=== PATIENT | male | born 1945 | race Caucasian/White ===

== ENCOUNTER 2020-05-14 13:18 | Observation (INO) ==
[2020-05-14] MEDS ORDERED: SODIUM CHLORIDE 0.9% 1000ML 1,000 ML IV ONE (13:33)
--- NOTE | 2020-05-14 13:37 | Emergency Department Note ---
Impression & Plan Syncope, HTN (hypertension), Blood glucose elevated ED Provider Note NAME: INLAY BLACK AGE: 74 SEX: M : 1945 ARRIVES VIA: Walk-In INFORMANT: Patient ED PROVIDER(S): Ilan Meyers DO CHIEF COMPLAINT: Recurrent syncope HPI: Patient is a 74-year-old male who presents to the ER for syncope and near syncope. Symptoms started about a week ago. Over this past weekend he had nearly 5 episodes on Thursday and several episodes on Thursday and again today. He passed out once on Thursday and once on Thursday. He notes he becomes very warm, flushed, lightheaded and his legs become very weak. Twice he was woken up on the floor. He denies any headache or change in vision. No chest pain or shortness of breath. No belly pain, nausea, vomiting or diarrhea. No new swelling of legs. He was Covid positive over a month ago but notes those symptoms have now abated. Seen by his PCP and sent in for further evaluation. This generally occurs when he is up moving around. Does not occur with changing positions. Can also occur though while he sitting. ROS: See above HPI for pertinent positives & negatives. A total of 10 systems reviewed and were otherwise negative. PAST MEDICAL HISTORY:See Below PAST SURGICAL HISTORY:See Below FAMILY HISTORY:See Below SOCIAL HISTORY:See Below HOME MEDICATIONS:See Below ALLERGIES:See Below VITALS:See Below PHYSICAL EXAMINATION: GENERAL: Sitting up in bed, alert, well appearing, well nourished, no distress, non-toxic EYE EXAM: normal conjunctiva. PERRL and EOM's intact. OROPHARYNX: no exudate, no erythema, lips, buccal mucosa, and tongue normal and mucous membranes are moist NECK: supple, no nuchal rigidity, no adenopathy, non-tender LUNGS: Clear to auscultation. Normal chest wall mechanics HEART: no murmurs, S1 normal and S2 normal ABDOMEN: abdomen soft, non-tender, normo-active bowel sounds, no masses, no rebound or guarding. UPPER EXTREMITIES: upper extremities are grossly normal. LOWER EXTREMITIES: No pitting edema. NEURO EXAM: Normal sensorium, cranial nerves II-XII intact, normal speech, no weakness of arms, no weakness of legs. No drift. Finger to nose intact. Gross sensation intact. Rapid alternating movements of upper extremities intact. MEDICAL DECISION MAKING: Patient is a 74-year-old male who presents the ER for multiple syncopal and near syncopal episodes over the past week. Sent in by PCP. IV was established blood work was obtained. Labs show no significant anemia or leukocytosis. INR unremarkable. D-dimer was negative at 350. BMP along with LFTs bilirubin troponin lipase was unremarkable. Covid was negative. CT head as well as chest x-ray and venous Dopplers were negative. Patient was updated bedside. EKG was nondiagnostic. Patient was leonidas with hospitalist for further evaluation of the recurrent syncope/near syncope. Triage Nursing notes reviewed. Limited review of prior medical records performed Vital Signs: reviewed and remarkable for [no significant abnormalities] Differential diagnosis: Differential diagnosis includes etiologies such as vasovagal event, infection, hypoglycemia, electrolyte abnormalities, cardiac sources, intracerebral event, toxicologic, neurologic, as well as others were entertained. ER treatment provided: See below Diagnostics interpreted by me: ECG: Sinus rhythm rate of 75 Normal axis Prolonged QTC at [address] wave changes in the septal leads Cardiac Monitoring: An order was placed for continuous cardiac monitoring. The monitor shows a rate of 71 with sinus rhythm. Laboratory studies: As stated above and show below. Imaging studies: CT head as well as Doppler bilateral lower extremities and chest x-ray were unremarkable Consultation(s): Discuss[place] with [facility] [place] as stated above for further evaluation. Procedures: none Critical Care: None Past Med/Surg History Medical History (Updated 05/14/20 @ 17:05 by Ilan Meyers DO) Ascending aorta dilatation Diabetes mellitus, type II GERD (gastroesophageal reflux disease) HLD (hyperlipidemia) Hypertension Nonobstructive atherosclerosis of coronary artery REANNA on CPAP Surgical History H/O cardiac catheterization History of partial colectomy History of tonsillectomy S/p nephrectomy Family History Other Colorectal cancer Lung cancer Social History Smoking Status: Former smoker Years Smoked: 30; Smoking End Date: 2009; Hx Alcohol Use: Yes Alcohol Intake Frequency: 2-4 x/Month Hx Substance Use: No Feels Safe at Home: Yes Allergies Allergies Allergy/AdvReac Type Severity Reaction Status Date / Time iodine Allergy Unknown Verified 05/14/20 15:54 shellfish derived Allergy FULL BODY Unverified 05/14/20 15:54 ITCHING IODINE BETADINE Allergy Unknown FULL BODY Uncoded 05/14/20 15:54 ITCHING Home Meds Home Medications Medication Instructions Recorded Confirmed aspirin 81 mg PO DAILY 08/13/19 05/14/20 atorvastatin 40 mg PO DAILY 08/13/19 05/14/20 fluticasone propionate 2 spray INTRANASAL QAM 08/13/19 05/14/20 glipizide 10 mg PO AMPM 08/13/19 05/14/20 hydralazine 75 mg PO TID 08/13/19 05/14/20 hydrochlorothiazide 25 mg PO DAILY 08/13/19 05/14/20 losartan 100 mg PO DAILY 08/13/19 05/14/20 metformin 1,000 mg PO BID 08/13/19 05/14/20 omega 9-wkk-wtm-fish oil [Fish Oil] 1 cap PO DAILY 08/13/19 05/14/20 omeprazole 20 mg PO HS 08/13/19 05/14/20 semaglutide [Ozempic] 1 mg SUBCUT WK 08/13/19 05/14/20 diclofenac sodium [Voltaren] 2 g TOPICAL TID PRN 05/14/20 05/14/20 loratadine 10 mg PO DAILY 05/14/20 05/14/20 metoprolol tartrate 50 mg PO BID 05/14/20 05/14/20 tamsulosin 0.4 mg PO DAILY 05/14/20 05/14/20 valacyclovir 500 mg PO DAILY 05/14/20 05/14/20 Results & Data (ED) Vital Signs Vital Signs - 24 hr 05/14/20 13:20 05/14/20 13:37 05/14/20 13:58 Temperature 36.0 C L Temperature Source Temporal Artery Scan Oral Pulse Rate 78 76 Pulse Rate [Right Finger] Respiratory Rate 18 19 Respiratory Effort / Characteristics Non-Labored Respiratory Depth Normal Blood Pressure 176/91 H Blood Pressure [Left Arm] Blood Pressure Mean 119 Blood Pressure Mean [Left Arm] Blood Pressure Position [Left Arm] Pulse Oximetry 98 Oxygen Delivery Method Room Air Sepsis Recent Fever Within 48 Hours No Sepsis New/Unexplained Change in Mental Status No Sepsis Action Taken by Nursing No Action Required 05/14/20 14:00 05/14/20 14:58 05/14/20 14:59 Temperature Temperature Source Pulse Rate 72 73 71 Pulse Rate [Right Finger] Respiratory Rate 14 14 18 Respiratory Effort / Characteristics Respiratory Depth Blood Pressure 178/92 H Blood Pressure [Left Arm] Blood Pressure Mean 123 Blood Pressure Mean [Left Arm] Blood Pressure Position [Left Arm] Pulse Oximetry Oxygen Delivery Method Sepsis Recent Fever Within 48 Hours Sepsis New/Unexplained Change in Mental Status Sepsis Action Taken by Nursing 05/14/20 15:00 05/14/20 15:01 05/14/20 15:32 Temperature Temperature Source Pulse Rate 76 73 Pulse Rate [Right Finger] 70 Respiratory Rate 18 19 18 Respiratory Effort / Characteristics Respiratory Depth Blood Pressure 192/111 H Blood Pressure [Left Arm] 170/100 H Blood Pressure Mean 128 Blood Pressure Mean [Left Arm] 123 Blood Pressure Position [Left Arm] Sitting Pulse Oximetry 97 Oxygen Delivery Method Room Air Sepsis Recent Fever Within 48 Hours Sepsis New/Unexplained Change in Mental Status Sepsis Action Taken by Nursing 05/14/20 16:37 Temperature Temperature Source Pulse Rate Pulse Rate [Right Finger] Respiratory Rate Respiratory Effort / Characteristics Respiratory Depth Blood Pressure Blood Pressure [Left Arm] Blood Pressure Mean Blood Pressure Mean [Left Arm] Blood Pressure Position [Left Arm] Pulse Oximetry Oxygen Delivery Method Room Air Sepsis Recent Fever Within 48 Hours Sepsis New/Unexplained Change in Mental Status Sepsis Action Taken by Nursing Laboratory Data Result diagrams: 05/14/20 13:55 05/14/20 13:55 Lab Results 05/14/20 05/14/20 05/14/20 Range/Units 13:55 13:55 13:55 WBC 8.31 (4.8-10.8) K/uL RBC 4.79 (4.7-6.1) M/uL Hgb 13.5 L (14.0-18.0) g/dL Hct 40.5 L (42-52) % MCV 84.6 (80-100) fL MCH 28.2 (25-34) pg MCHC 33.3 (32-36) g/dL RDW Std Deviation 45.6 (36.4-46.3) fL RDW Coeff of [place] 14.7 H (11.5-14.5) % Plt Count 248 (130-400) K/uL MPV 10.0 (7.4-10.4) fL Immature Gran % (Auto) 0.2 % Neut % (Auto) 59.9 % Lymph % (Auto) 26.2 % [place] % (Auto) 11.3 % Eos % (Auto) 1.9 % Baso % (Auto) 0.5 % Neut # (Auto) 4.97 (1.4-6.5) K/uL Lymph # (Auto) 2.18 (1.2-3.4) K/uL [place] # (Auto) 0.94 H (0.11-0.59) K/uL Eos # (Auto) 0.16 (0-0.5) K/uL Baso # (Auto) 0.04 (0-0.2) K/uL Immature Gran # (Auto) 0.02 (0.00-0.02) K/uL PT 11.6 (9.0-12.0) Seconds INR 1.1 (0.9-1.1) APTT 25.0 (21.0-31.0) Seconds PTT Ratio 0.9 D-Dimer 350 (0-500) ug/L FEU Sodium 136 (136-145) mmol/L Potassium 3.6 (3.5-5.1) mmol/L Chloride 101 (98-107) mmol/L Carbon Dioxide 27 (21-32) mmol/L Anion Gap 8.0 (3-11) BUN 12 (7-18) mg/dl Creatinine 0.75 (0.6-1.4) mg/dl Est Cr Clr Drug Dosing 110.0 ml/min Est GFR ( Amer) 105.5 Est GFR (Non-Af Amer) 91.0 BUN/Creatinine Ratio 16.1 (10-20) Glucose 156 H (70-99) mg/dl Calcium 9.5 (8.5-10.1) mg/dl Magnesium (1.8-2.4) mg/dl Total Bilirubin 0.7 (0.2-1) mg/dl AST 21 (15-37) U/L ALT 37 (12-78) U/L Alkaline Phosphatase 70 (45-117) U/L Troponin I < 0.015 (0-0.045) ng/ml Total Protein 7.1 (6.4-8.2) gm/dl Albumin 3.6 (3.4-5.0) gm/dl Globulin 3.5 (2.5-4.0) gm/dl Albumin/Globulin Ratio 1.0 (0.9-2) Lipase 117 (73-393) U/L COVID-19 Eval Order SARS-CoV-2, RNA, NAAT (NEGATIVE) 05/14/20 05/14/20 05/14/20 Range/Units 13:55 14:38 14:38 WBC (4.8-10.8) K/uL RBC (4.7-6.1) M/uL Hgb (14.0-18.0) g/dL Hct (42-52) % MCV (80-100) fL MCH (25-34) pg MCHC (32-36) g/dL RDW Std Deviation (36.4-46.3) fL RDW Coeff of [place] (11.5-14.5) % Plt Count (130-400) K/uL MPV (7.4-10.4) fL Immature Gran % (Auto) % Neut % (Auto) % Lymph % (Auto) % [place] % (Auto) % Eos % (Auto) % Baso % (Auto) % Neut # (Auto) (1.4-6.5) K/uL Lymph # (Auto) (1.2-3.4) K/uL [place] # (Auto) (0.11-0.59) K/uL Eos # (Auto) (0-0.5) K/uL Baso # (Auto) (0-0.2) K/uL Immature Gran # (Auto) (0.00-0.02) K/uL PT (9.0-12.0) Seconds INR (0.9-1.1) APTT (21.0-31.0) Seconds PTT Ratio D-Dimer (0-500) ug/L FEU Sodium (136-145) mmol/L Potassium (3.5-5.1) mmol/L Chloride (98-107) mmol/L Carbon Dioxide (21-32) mmol/L Anion Gap (3-11) BUN (7-18) mg/dl Creatinine (0.6-1.4) mg/dl Est Cr Clr Drug Dosing ml/min Est GFR ( Amer) Est GFR (Non-Af Amer) BUN/Creatinine Ratio (10-20) Glucose (70-99) mg/dl Calcium (8.5-10.1) mg/dl Magnesium 2.3 (1.8-2.4) mg/dl Total Bilirubin (0.2-1) mg/dl AST (15-37) U/L ALT (12-78) U/L Alkaline Phosphatase (45-117) U/L Troponin I (0-0.045) ng/ml Total Protein (6.4-8.2) gm/dl Albumin (3.4-5.0) gm/dl Globulin (2.5-4.0) gm/dl Albumin/Globulin Ratio (0.9-2) Lipase (73-393) U/L COVID[facility]19 [facility], RNA, NAAT NEGATIVE (NEGATIVE) Administered Medications Discontinued Medications Hydralazine HCl (Hydralazine Hcl 25 Mg Tab) 75 mg PO NOW STA Stop: 05/14/20 15:35 Last Admin: 05/14/20 16:36 Dose: 75 mg Documented by: [id number] Sodium Chloride (Nss 1000ml) 1,000 mls @ 999 mls/hr IV .Q1H1M ONE Stop: 05/14/20 14:33 Last Infusion: 05/14/20 15:08 Dose: 0 mls/hr Documented by: [id number] Admin: 05/14/20 13:59 Dose: 999 mls/hr Documented by: [id number] Discharge Plan Visit Data Chief Complaint: Cardiac Assessment Stated Complaint: Heart rate irregular ED Provider: Ilan Meyers Discharge Problem: Syncope, HTN (hypertension), Blood glucose elevated Patient Disposition: Admitted As Inpatient Discharge Instructions Interventions: ED Discharge Assessment Last Done: 05/14/20 16:37 Forms Stand Alone Forms: [facility] Prescriptions Prescriptions: No Action diclofenac sodium [Voltaren] 1 % Gel 2 g TOPICAL TID PRN (Reason: Pain) RF: 0 metoprolol tartrate 50 mg tablet 50 mg PO BID RF: 0 loratadine 10 mg Tablet 10 mg PO DAILY RF: 0 tamsulosin 0.4 mg capsule 0.4 mg PO DAILY RF: 0 valacyclovir 500 mg tablet 500 mg PO DAILY RF: 0 hydralazine 100 mg tablet 75 mg PO TID RF: 0 glipizide 5 mg tablet 10 mg PO AMPM RF: 0 atorvastatin 40 mg tablet 40 mg PO DAILY RF: 0 hydrochlorothiazide 25 mg tablet 25 mg PO DAILY RF: 0 metformin 1,000 mg tablet 1,000 mg PO BID RF: 0 losartan 100 mg tablet 100 mg PO DAILY RF: 0 aspirin 81 mg Tablet,Delayed Release (Dr/Ec) 81 mg PO DAILY RF: 0 omeprazole 20 mg capsule,delayed release(DR/EC) 20 mg PO HS RF: 0 omega 5-vyk-lwa-fish oil [Fish Oil] 360-1,200 mg Capsule,Delayed Release(Dr/Ec) 1 cap PO DAILY RF: 0 fluticasone propionate 50 mcg/actuation spray,suspension 2 spray INTRANASAL QAM RF: 0 Ozempic 1 mg/dose (2 mg/1.5 mL) pen injector 1 mg SUBCUT WK RF: 0 Referrals Referrals: Humberto Reyes MD [Primary Care Provider] - Discharge Problem: Syncope Qualifiers: Syncope type: unspecified Qualified Code(s): R55 - Syncope and collapse HTN (hypertension) Qualifiers: Hypertension type: unspecified Qualified Code(s): I10 - Essential (primary) hypertension
[2020-05-14 14:04] LABS: Basophils # (auto) 0.04 K/uL (0-0.2); Basophils % (auto) 0.5 %; Eosinophils # (auto) 0.16 K/uL (0-0.5); Eosinophils % (auto) 1.9 %; Hematocrit (blood only) 40.5 % (42-52); Hemoglobin 13.5 g/dL (14.0-18.0); Immature Granulocytes # (auto) 0.02 K/uL (0.00-0.02); Immature Granulocytes % (auto) 0.2 %; Lymphocytes # (auto) 2.18 K/uL (1.2-3.4); Lymphocytes % (auto) 26.2 %; Mean Corpuscular Hemoglobin 28.2 pg (25-34); Mean Corpuscular Hgb Conc 33.3 g/dL (32-36); Mean Corpuscular Volume 84.6 fL (80-100); Monocytes # (auto) 0.94 K/uL (0.11-0.59); Monocytes % (auto) 11.3 %; Neutrophils # (auto) 4.97 K/uL (1.4-6.5); Neutrophils % (auto) 59.9 %; Platelet Count 248 K/uL (130-400); RDW Coefficient of Variation 14.7 % (11.5-14.5); RDW Standard Deviation 45.6 fL (36.4-46.3); Red Blood Count 4.79 M/uL (4.7-6.1); White Blood Count 8.31 K/uL (4.8-10.8)
--- NOTE | 2020-05-14 14:05 | XRay Report ---
XR chest 1V portable CLINICAL HISTORY: Atypical chest pain COMPARISON STUDY: 08/13/2019 FINDINGS: The heart is mildly enlarged. There is no failure. There is no focal pulmonary consolidatio n. There are no pleural effusions. A subcentimeter opacity in the axillary portion of the right chest is felt to represent a summation or postinflammatory nodule.[ IMPRESSION: Mild cardiomegaly. No acute findings. ACT 112: Negative or not required by law. Electronically signed by: Tamir Hatfield M.D. 05/14/2020 2:03 PM
[2020-05-14 14:16] LABS: D Dimer 350 ug/L FEU (0-500); INR 1.1 (0.9-1.1); Partial Thromboplastin Ratio 0.9; Prothrombin Time 11.6 Seconds (9.0-12.0)
[2020-05-14 14:23] LABS: Albumin Level 3.6 gm/dl (3.4-5.0); Aspartate Aminotransferase 21 U/L (15-37); BUN Creatinine Ratio 16.1 (10-20); Blood Urea Nitrogen 12 mg/dl (7-18); Calcium 9.5 mg/dl (8.5-10.1); Carbon Dioxide 27 mmol/L (21-32); Chloride 101 mmol/L (98-107); Est GFR (African American) 105.5; Glucose 156 mg/dl (70-99); Lipase 117 U/L (73-393); Potassium 3.6 mmol/L (3.5-5.1); Sodium 136 mmol/L (136-145)
[2020-05-14 14:27] LABS: Alanine Aminotransferase 37 U/L (12-78); Alkaline Phosphatase 70 U/L (45-117); Bilirubin,Total 0.7 mg/dl (0.2-1); Globulin 3.5 gm/dl (2.5-4.0); Total Protein 7.1 gm/dl (6.4-8.2); Troponin I < 0.015 ng/ml (0-0.045)
--- NOTE | 2020-05-14 14:52 | Ultrasound Report ---
BILATERAL LOWER EXTREMITY VENOUS DOPPLER HISTORY: Assess for DVT. recurrent syncope COMPARISON STUDY: None. FINDINGS: There is normal compressibility, flow, and augmentation within the bilateral lower extremit y deep venous systems. IMPRESSION: No DVT within the right or left lower extremity. ACT 112: Negative or not required by law. Electronically signed by: Tvaon Kelly M.D. 05/14/2020 2:51 PM
--- NOTE | 2020-05-14 15:10 | History & Physical Report ---
Date of Service May 14, 2020 Assessment & Plan (1) Syncope: (2) Hypertension: (3) Nonobstructive atherosclerosis of coronary artery: (4) Diabetes mellitus, type II: (5) Ascending aorta dilatation: (6) HLD (hyperlipidemia): (7) GERD (gastroesophageal reflux disease): (8) REANNA on CPAP: This is a 74yo M with a PMH of DM II, nonobstructive CAD, HTN, ascending aorta dilatation, history of bifascicular block, HLD, REANNA on CPAP and other medical problems listed below who presents with syncopal and near syncopal episodes x 1 week. Syncope Frequent episodes of near syncope and syncopal episode in the last week. Occurs when standing. No preceding CP or palpitations CXR without acute cardiopulmonary abnormalities. Venous Doppler study without evidence of DVT Orthostatic vitals, CT head, carotid duplex and 2D echo pending along with routine cardiology consult Most recent TTE from 12/21/19 with preserved EF, grade 1 diastolic dysfunction, mild MR, mildly enlarged aortic root and ascending aorta is borderline enlarged - no significant change since Dec 2018 echo No chest pain, abdominal, back pain or SOB that would increase concern for aortic dissection/aneurysm - will need pretreated with Benadryl due to contrast allergy (rash) if CTA chest is later indicated Known bifascicular block. EKG with no acute change Monitor on telemetry Hypertension Known to have labile HTN BP elevated at 175/91 in ED but is due for home dose Hydralazine, which was given Continue home hydralazine, HCTZ, losartan, lopressor CAD Non-obstructive CAD per 2011 cardiac catheterization No chest pain. Continue aspirin, statin, lopressor DM II A1c 7.3 in Nov 2019. Repeat a1c ordered Hold home agents SSI while in-patient BSG AC HS REANNA CPAP HS DVT Ppx: SQ heparin Code status: FULL PCP: Amy Dispo: Admitted to PCU. Plan to return home once medically stable. Patient seen in collaboration with Dr. Figueroa. Please see addendum. History of Present Illness Chief Complaint: syncope Primary Care Provider: Humberto Reyes MD This is a 74yo M with a PMH of DM II, nonobstructive CAD, HTN, ascending aorta dilatation, history of bifascicular block, HLD, REANNA on CPAP and other medical problems listed below who presents with syncopal and near syncopal episodes x 1 week. Had full syncopal episode on Thursday when he was standing by bedroom when digesting mind. Denies any sudden positional change prior to developing lightheadedness and flushing followed by visual changes. Fell backwards onto the bed and does not think he hit his head. Endorses 5-6 other near syncopal episodes over the past week mostly occurring when patient is standing. Has occasionally occurred when he is sitting still but not as severe. He denies any associated chest pain or shortness of breath. No heart palpitations over the past few weeks. Does check blood pressure with cuff at home and noticed pressure was elevated on Thursday (150/101) but back to 130s/80s on Thursday. He is taking all medications as scheduled. Was sent in by PCP today for further syncopal evaluation. Had COVID last month, but had a fairly mild course with cough that resolved without requiring oxygen or steroids. No other recent illnesses, fevers, chills. No nausea, vomiting, or abdominal pain. No dysuria. Had a few episodes of diarrhea 2 weeks ago that have since resolved. Most recent TTE from 12/21/19 with preserved EF, grade 1 diastolic dysfunction, mild MR, mildly enlarged aortic root and ascending aorta is borderline enlarged - no significant change since Dec 2018 echo. Also with history of MRI brain from Dec 2018 with mild generalized volume loss with evidence of mild chronic microvascular ischemic change. Allergies Allergy/AdvReac Type Severity Reaction Status Date / Time iodine Allergy Unknown Verified 05/14/20 15:54 shellfish derived Allergy FULL BODY Unverified 05/14/20 15:54 ITCHING IODINE BETADINE Allergy Unknown FULL BODY Uncoded 05/14/20 15:54 ITCHING Home Medications Medication Instructions Recorded Confirmed Type aspirin 81 mg PO DAILY 08/13/19 05/14/20 History atorvastatin 40 mg PO DAILY 08/13/19 05/14/20 History fluticasone propionate 2 spray INTRANASAL QAM 08/13/19 05/14/20 History glipizide 10 mg PO AMPM 08/13/19 05/14/20 History hydralazine 75 mg PO TID 08/13/19 05/14/20 History hydrochlorothiazide 25 mg PO DAILY 08/13/19 05/14/20 History losartan 100 mg PO DAILY 08/13/19 05/14/20 History metformin 1,000 mg PO BID 08/13/19 05/14/20 History omega 4-oqo-fdn-fish oil [Fish Oil] 1 cap PO DAILY 08/13/19 05/14/20 History omeprazole 20 mg PO HS 08/13/19 05/14/20 History semaglutide [Ozempic] 1 mg SUBCUT WK 08/13/19 05/14/20 History diclofenac sodium [Voltaren] 2 g TOPICAL TID PRN 05/14/20 05/14/20 History loratadine 10 mg PO DAILY 05/14/20 05/14/20 History metoprolol tartrate 50 mg PO BID 05/14/20 05/14/20 History tamsulosin 0.4 mg PO DAILY 05/14/20 05/14/20 History valacyclovir 500 mg PO DAILY 05/14/20 05/14/20 History Past Med/Surg History Medical History (Updated 05/14/20 @ 17:05 by Ilan Meyers DO) Ascending aorta dilatation Diabetes mellitus, type II GERD (gastroesophageal reflux disease) HLD (hyperlipidemia) Hypertension Nonobstructive atherosclerosis of coronary artery REANNA on CPAP Surgical History H/O cardiac catheterization History of partial colectomy History of tonsillectomy S/p nephrectomy Family History Other Colorectal cancer Lung cancer Social History Smoking Status: Former smoker Years Smoked: 30; Smoking End Date: 2009; Second Hand Exposure: No; Do You Dip or Chew Tobacco: No; Tobacco Cessation Education Requested by Patient: No Hx Alcohol Use: Yes Alcohol Intake Frequency: 2-4 x/Month Hx Substance Use: No Communication Ability: Effective Associate Editor Required: Yes Beliefs That Will Affect Care: None Current Living Situation: Significant Other Other Information That Helps Us Care for You: No Feels Safe at Home: Yes Safety Concerns: Feels Safe At This Time Assistive Devices: Hearing Aid - Bilateral Review of Systems Review of Systems: At least ten systems reviewed and negative except as noted in the HPI. Physical Exam Physical Exam: General Appearance: WD/WN, vitals as above, NAD, sitting up in bed, pleasant, conversing easily Head: normocephalic, atraumatic Eyes: normal inspection, PERRL, conjunctivae normal, anicteric sclerae ENT: external ear and nose normal, oropharynx normal Neck: normal visual inspection, trachea midline, no thyromegaly Respiratory: normal respiratory effort, lungs clear to auscultation, no wheeze, rales, rhonchi. No accessory muscle use Cardiovascular: regular rate, rhythm, no murmur appreciated, normal peripheral pulses, no BLE edema. Vessels: no JVD Chest: normal inspection of chest Abdomen/GI: normal bowel sounds, soft, nontender, no hepatosplenomegaly Extremities/Musculoskeletal: no cyanosis or clubbing, extremities motor strength 5/5 Neurologic: PERRL, EOMI, accommodation nl, no face palsy, no dysarthria, CN's II-XI intact bilaterally and moves all extremities Psychiatric: A+Ox3, euthymic affect Skin: no rashes, normal color, warm/dry Results & Data Results & Data ([facility]) Vital Signs (Past 12 Hours) Vital Signs Temp Pulse Resp BP Pulse Ox 05/14/20 13:20 36.0 C L 78 18 176/91 H 98 Laboratory Results Short CBC 05/14/20 Range/Units 13:55 WBC 8.31 (4.8-10.8) K/uL Hgb 13.5 L (14.0-18.0) g/dL Hct 40.5 L (42-52) % Plt Count 248 (130-400) K/uL BMP 05/14/20 13:55 Sodium 136 Potassium 3.6 Chloride 101 Carbon Dioxide 27 BUN 12 Creatinine 0.75 Glucose 156 H Calcium 9.5 Cardiac Enzymes 05/14/20 Range/Units 13:55 Troponin I < 0.015 (0-0.045) ng/ml Liver Function 05/14/20 Range/Units 13:55 Total Bilirubin 0.7 (0.2-1) mg/dl AST 21 (15-37) U/L ALT 37 (12-78) U/L Alkaline Phosphatase 70 (45-117) U/L Albumin 3.6 (3.4-5.0) gm/dl Diagnostic Findings CXR: IMPRESSION: Mild cardiomegaly. No acute findings. Venous doppler: IMPRESSION: No DVT within the right or left lower extremity. ECG Rhythm: sinus rhythm Additional Comments: h/o bifascicular block Supervising Physician Co-Signing Physician Notes Patient is a 74-year-old male with history of diabetes, coronary disease, ascending aortic dilation, bifascicular heart block and other medical problems presents with history of recurrent syncopal episodes for the past 1 week. He denies any head trauma, headache, change in vision currently. Please review HPI for complete details of presentation. He was found to be in hypertensive urgency while in ED. CT head showed no acute intracranial abnormality. He was recently diagnosed to have Covid but did not receive any treatment as symptoms were mild requiring no treatment. On exam patient is well-built and nourished, no apparent distress, normocephalic atraumatic, lungs are clear to auscultation, normal breath sounds, S1-S2, ABDOMEN: Soft, non-tender, no organs or masses felt. Bowel sounds normo-active. No bruits. Abdomen soft, nontender, normal bowel sounds, alert, awake, oriented, grossly no focal neurological deficits, no pedal edema. Patient is admitted for management of recurrent syncopal episodes. CT head showed no acute intracranial abnormality. Carotid ultrasound is within normal limits. Agree with obtaining echo, EKG in the morning, trend troponins, obtain orthostatics and consult cardiology for further input. Will monitor and telemetry unit. Will resume his home antihypertensives and adjust medications as needed. I personally reviewed the record. Patient is interviewed and examined at bedside. Patient's care is coordinated with Katrina Silva PA-C. Please refer to the documentation above for details of patient's presentation and for discussion of other issues.
[2020-05-14] MEDS ORDERED: hydrALAZINE HCL 25 MG TAB PO STA (15:34)
[2020-05-14] MEDS ORDERED: POTASSIUM CHLORIDE CRTAB 20 MEQ TABCR PO STA (16:09)
--- NOTE | 2020-05-14 16:48 | CT Scan Report ---
CT SCAN OF THE BRAIN WITHOUT IV CONTRAST CLINICAL HISTORY: Fall. Syncope. COMPARISON STUDY: No priors. TECHNIQUE: Unenhanced axial CT scan of the brain is performed from the vertex to the skull base. A do se lowering technique was utilized adhering to the principles of ALARA. CT DOSE: 994.86 mGycm FINDINGS: Brain parenchyma: There are age-related involutional changes noting mild subcortical and periventric ular microangiopathic change. There is no hemorrhage, mass effect, or evidence of acute territorial i schemia by CT criteria. Villagomez-white matter differentiation is preserved. No extra-axial fluid collecti on is seen. Ventricles, sulci, cisterns: Prominent secondary to involutional change. Intracranial vasculature: There is atherosclerotic calcification of the cavernous carotid and vertebr al arteries. Calvarium: The skeletal structures are osteopenic. No depressed calvarial fracture is identified. Sinuses and mastoids: There is mild mucosal thickening within the maxillary antra. The remaining para nasal sinuses are clear. There is trace left mastoid effusion. The right mastoid air cells are well p neumatized. Orbits: The bony orbits are grossly intact. IMPRESSION: There is no hemorrhage, mass effect, or evidence of acute territorial ischemia by CT crit shauna. ACT 112: Negative or not required by law. Electronically signed by: Christopher Miguel M.D. 05/14/2020 4:47 PM
--- NOTE | 2020-05-14 17:33 | Ultrasound Report ---
ULTRASOUND OF THE CAROTID ARTERIES CLINICAL HISTORY: Syncope. COMPARISON STUDY: No priors. TECHNIQUE: Real-time, grayscale, and color Doppler sonography of the carotid arteries is performed. I mages are reviewed in the transverse and longitudinal planes. FINDINGS: Blood pressure in the right arm measures 206/95 and blood pressure in the left arm measures 196/95. The carotid arteries are patent bilaterally and demonstrate antegrade flow. There is no significant a therosclerotic plaque identified. Normal doppler arterial waveforms are seen throughout. Velocity jun surements are listed below. Common carotid peak systolic velocity (cm/sec): RIGHT: 80 LEFT: 110 ICA proximal peak systolic velocity (cm/sec): RIGHT: 49 LEFT: 37 ICA mid peak systolic velocity (cm/sec): RIGHT: 53 LEFT: 45 ICA distal peak systolic velocity (cm/sec): RIGHT: 83 LEFT: 62 ICA/CC peak systolic ratio: RIGHT: 1.0 LEFT: 0.6 Antegrade flow was shown in the vertebral arteries. The external carotid arteries are patent. IMPRESSION: 1. There is no sonographic evidence of hemodynamically significant stenosis in the right or left miller tid arterial system. 2. Antegrade flow is shown in the vertebral arteries. 3. Hypertension as above. ACT 112: Negative or not required by law. Electronically signed by: Christopher Miguel M.D. 05/14/2020 5:32 PM
[2020-05-14] MEDS ORDERED: POLYETHYLENE (MIRALAX) 17 GM PACK PO PRN (18:03)
[2020-05-14] MEDS ORDERED: CARBOHYDRATES FOR HYPOGLYCEMIA PO PRN (18:03)
[2020-05-14] MEDS ORDERED: DICLOFENAC SOD 1% GEL 100 GM TUBE EXT PRN (18:03)
[2020-05-14] MEDS ORDERED: GLUCOSE 10 TABS/TUBE PO PRN (18:03)
[2020-05-14] MEDS ORDERED: GLUCOSE 40% GEL 15 GM TUBE PO PRN (18:03)
[2020-05-14] MEDS ORDERED: ACETAMINOPHEN 325 MG TAB PO PRN (18:03)
[2020-05-14] MEDS ORDERED: ONDANSETRON INJ 2 MG/ML 2 ML VIAL IV PRN (18:03)
[2020-05-14] MEDS ORDERED: GLUCAGON FOR INJ 1 MG VIAL SQ PRN (18:03)
[2020-05-14] MEDS ORDERED: DEXTROSE 50% 50 ML SYRINGE IV PRN (18:03)
--- NOTE | 2020-05-14 18:41 | Electrocardiogram Report ---
Test Reason : Blood Pressure : / mmHG Vent. Rate : 075 BPM Atrial Rate : 075 BPM P-R Int : 218 ms QRS Dur : 160 ms QT Int : 454 ms P-R-T Axes : 032 027 040 degrees QTc Int : 506 ms Sinus rhythm with 1st degree A-V block with Premature atrial complexes in a pattern of bigeminy Right bundle branch block Abnormal ECG When compared with ECG of 13-AUG-2019 20:33, Premature atrial complexes are now Present WA interval has increased Confirmed by Sixto Thomason ([id number]) on 05/14/2020 6:40:43 PM Referred By: Emilie Jeffrey Confirmed By:Sixto Thomason
[2020-05-14] MEDS: hydrALAZINE HCL 25 MG TAB PO SCH (20:30)
[2020-05-14] MEDS: HEPARIN SOD 5,000 UNIT/0.5 ML VIAL SQ SCH (20:31)
[2020-05-14] MEDS: METOPROLOL TARTRATE 50 MG TAB PO SCH (20:31)
[2020-05-14] MEDS: INSULIN ASPART 100 UNITS/ML 3 ML PEN SC SCH ×2 (20:31→20:51)
[2020-05-14] MEDS ORDERED: PANTOprazole 40 MG TAB PO SCH (21:00)
[2020-05-15 07:15] LABS: Hematocrit (blood only) 38.2 % (42-52); Hemoglobin 12.6 g/dL (14.0-18.0); Mean Corpuscular Hemoglobin 27.9 pg (25-34); Mean Corpuscular Volume 84.7 fL (80-100); Mean Platelet Volume 9.7 fL (7.4-10.4); Platelet Count 210 K/uL (130-400); RDW Coefficient of Variation 14.6 % (11.5-14.5); RDW Standard Deviation 45.1 fL (36.4-46.3); Red Blood Count 4.51 M/uL (4.7-6.1); White Blood Count 7.56 K/uL (4.8-10.8)
[2020-05-15 07:38] LABS: BUN Creatinine Ratio 16.1 (10-20); Blood Urea Nitrogen 11 mg/dl (7-18); Calcium 9.1 mg/dl (8.5-10.1); Carbon Dioxide 26 mmol/L (21-32); Chloride 103 mmol/L (98-107); Est GFR (African American) 107.9; Est GFR (Non-African American) 93.1; Glucose 124 mg/dl (70-99); Magnesium 2.1 mg/dl (1.8-2.4); Potassium 3.7 mmol/L (3.5-5.1); Sodium 137 mmol/L (136-145)
[2020-05-15 07:43] LABS: Troponin I < 0.015 ng/ml (0-0.045)
[2020-05-15 08:24] LABS: Estimated Average Glucose 160 mg/dl; Hemoglobin A1C 7.2 % (4.5-5.6)
[2020-05-15] MEDS: INSULIN ASPART 100 UNITS/ML 3 ML PEN SC SCH ×2 (08:56→11:58)
[2020-05-15] MEDS ORDERED: FLUTICASONE PROPIONATE NA SPR 16 GM BTL NAE SCH (09:00)
[2020-05-15] MEDS ORDERED: OMEGA-3 (PURIFIED FISH OIL) 1 GM CAP PO SCH (09:00)
[2020-05-15] MEDS ORDERED: ATORVASTATIN 40 MG TAB PO SCH (09:00)
[2020-05-15] MEDS ORDERED: ASPIRIN 81 MG ECTAB PO SCH (09:00)
[2020-05-15] MEDS ORDERED: TAMSULOSIN HCL 0.4 MG CAP PO SCH (09:00)
[2020-05-15] MEDS ORDERED: hydroCHLOROthiazide 25 MG TAB PO SCH (09:00)
[2020-05-15] MEDS ORDERED: LORATADINE 10 MG TAB PO SCH (09:00)
[2020-05-15] MEDS ORDERED: valACYclovir HCL 500 MG TABLET PO SCH (09:00)
[2020-05-15] MEDS ORDERED: LOSARTAN POTASSIUM 50 MG TAB PO SCH (09:00)
[2020-05-15] MEDS: HEPARIN SOD 5,000 UNIT/0.5 ML VIAL SQ SCH (09:00)
[2020-05-15] MEDS: METOPROLOL TARTRATE 50 MG TAB PO SCH (09:01)
[2020-05-15] MEDS: hydrALAZINE HCL 25 MG TAB PO SCH (09:03)
--- NOTE | 2020-05-15 10:27 | Cardiology Consultation ---
Date of Consultation May 15, 2020 Assessment & Plan (1) Syncope: (2) HTN (hypertension): EKG performed this morning 05/15/2020 revealed sinus rhythm at 73 bpm with first- degree AV block, bifascicular block pattern, relatively unchanged compared to his previous baseline. Telemetry since admission has revealed sinus rhythm with PACs, and no arrhythmia that would correlate with syncope. The patient noted lightheadedness when changing from a supine to a seated position at the time of my exam. Orthostatic vital signs have been somewhat equivocal. And for the most part, ongoing hypertension has been noted both during his hospital stay, as well as during recent office visits. He notes his palpitations are well controlled on his current dose of metoprolol. Echocardiogram performed this morning revealed moderate concentric left ventricular hypertrophy, normal LVEF, no regional wall motion abnormalities, mild mitral regurgitation. At present, I recommend that we reduce his hydralazine to 50 mg 3 times daily. Orthostatic vital signs are going to be taken again. Future considerations include adding spironolactone to his HCTZ. His potassium historically has been on the lower side, and perhaps this would be a good addition for him, unwell for us to lower the dose of the patent vasodilator hydralazine. Recommend he remains in hospital for observation pending clinical improvement. History of Present Illness Attending Physician: Manjeet Figueroa MD History of Present Illness Sameer Joseph is a 74 year old male seen in cardiology consultation of syncope. The patient is well known to the undersigned as I follow him as an outpatient. He has a longstanding history of difficulty control hypertension prompting him to be on multiple medications. He recently has had increasing episodes of dizziness, syncope and near syncope. He was seen by primary care about a week ago for worsening episodes, in the meantime, 3 days ago on Thursday, first thing in the morning prior to taking his medications he woke up, opened his curtains, and had a maria loss of postural tone collapsing onto his bed. After resting a bit he felt better, and got up, and had to brace himself at the bathroom sink to keep himself from collapsing again. On Thursday he had a similar however less pronounced episode. He has a remote history of an abnormal nuclear stress test in 2011 for which he underwent follow-up cardiac catheterization at [facility] on 12/31/2011 revealing no significant obstructive coronary heart disease. 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 This prompted transition from carvedilol to his current treatment with metoprolol. He has been on hydralazine for years, with titration from 50 mg 3 times daily to 75 mg 3 times daily in December,. He has been on his current dose of losartan for quite some time having previously been on lisinopril. Amlodipine was discontinued in the remote past due to symptomatic lower extremity edema. Allergies Allergy/AdvReac Type Severity Reaction Status Date / Time iodine Allergy Unknown Verified 05/14/20 15:54 shellfish derived Allergy FULL BODY Unverified 05/14/20 15:54 ITCHING IODINE BETADINE Allergy Unknown FULL BODY Uncoded 05/14/20 15:54 ITCHING Home Medications Medication Instructions Recorded Confirmed Type aspirin 81 mg PO DAILY 08/13/19 05/14/20 History atorvastatin 40 mg PO DAILY 08/13/19 05/14/20 History fluticasone propionate 2 spray INTRANASAL QAM 08/13/19 05/14/20 History glipizide 10 mg PO AMPM 08/13/19 05/14/20 History hydralazine 75 mg PO TID 08/13/19 05/14/20 History hydrochlorothiazide 25 mg PO DAILY 08/13/19 05/14/20 History losartan 100 mg PO DAILY 08/13/19 05/14/20 History metformin 1,000 mg PO BID 08/13/19 05/14/20 History omega 0-ius-rcn-fish oil [Fish Oil] 1 cap PO DAILY 08/13/19 05/14/20 History omeprazole 20 mg PO HS 08/13/19 05/14/20 History semaglutide [Ozempic] 1 mg SUBCUT WK 08/13/19 05/14/20 History diclofenac sodium [Voltaren] 2 g TOPICAL TID PRN 05/14/20 05/14/20 History loratadine 10 mg PO DAILY 05/14/20 05/14/20 History metoprolol tartrate 50 mg PO BID 05/14/20 05/14/20 History tamsulosin 0.4 mg PO DAILY 05/14/20 05/14/20 History valacyclovir 500 mg PO DAILY 05/14/20 05/14/20 History Patient History Medical History Ascending aorta dilatation Diabetes mellitus, type II GERD (gastroesophageal reflux disease) HLD (hyperlipidemia) Hypertension Nonobstructive atherosclerosis of coronary artery REANNA on CPAP Surgical History H/O cardiac catheterization History of partial colectomy History of tonsillectomy S/p nephrectomy Family History Other Colorectal cancer Lung cancer Social History Smoking Status: Former smoker Years Smoked: 30; Smoking End Date: 2009; Second Hand Exposure: No; Do You Dip or Chew Tobacco: No; Tobacco Cessation Education Requested by Patient: No Hx Alcohol Use: Yes Alcohol Intake Frequency: 2-4 x/Month Hx Substance Use: No Communication Ability: Effective 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 Beliefs That Will Affect Care: None Current Living Situation: Significant Other Other Information That Helps Us Care for You: No Feels Safe at Home: Yes Safety Concerns: Feels Safe At This Time Review of Systems Review of Systems: All systems reviewed & are unremarkable except as noted in HPI & below Physical Exam Physical Exam: Temp Pulse Resp BP Pulse Ox 37 C 73 18 165/85 H 94 05/15/20 07:29 05/15/20 07:29 05/15/20 07:29 05/15/20 07:29 05/15/20 07:29 Respiratory: normal respiratory effort, lungs clear to auscultation Cardiovascular: RRR, no murmur, no edema Gastrointestinal (Abdomen): normal bowel sounds, soft, nontender, no hepatosplenomegaly Neurologic: PERRL, EOMI, accommodation nl, no face palsy, no dysarthria Results & Data ([facility]) Vital Signs (Past 12 Hours) Vital Signs Temp Pulse Pulse Pulse Resp BP BP 05/15/20 07:29 37 C 73 18 165/85 H 05/15/20 07:00 72 05/15/20 04:00 36.7 C 74 20 158/89 H 05/15/20 02:13 70 20 05/14/20 23:29 36.6 C 70 20 141/76 H 05/14/20 23:00 71 05/14/20 22:24 70 18 Pulse Ox 05/15/20 07:29 94 05/15/20 07:00 05/15/20 04:00 95 05/15/20 02:13 96 05/14/20 23:29 96 05/14/20 23:00 05/14/20 22:24 95 Laboratory Results Cardiac Enzymes 05/14/20 05/15/20 Range/Units 13:55 06:57 AST 21 (15-37) U/L Troponin I < 0.015 < 0.015 (0-0.045) ng/ml Coagulation 05/14/20 Range/Units 13:55 PT 11.6 (9.0-12.0) Seconds APTT 25.0 (21.0-31.0) Seconds CBC 05/14/20 05/15/20 Range/Units 13:55 06:57 WBC 8.31 7.56 (4.8-10.8) K/uL RBC 4.79 4.51 L (4.7-6.1) M/uL Hgb 13.5 L 12.6 L (14.0-18.0) g/dL Hct 40.5 L 38.2 L (42-52) % Plt Count 248 210 (130-400) K/uL Neut # (Auto) 4.97 (1.4-6.5) K/uL Lymph # (Auto) 2.18 (1.2-3.4) K/uL [place] # (Auto) 0.94 H (0.11-0.59) K/uL Eos # (Auto) 0.16 (0-0.5) K/uL Baso # (Auto) 0.04 (0-0.2) K/uL Comprehensive Metabolic Panel 05/14/20 05/15/20 Range/Units 13:55 06:57 Sodium 136 137 (136-145) mmol/L Potassium 3.6 3.7 (3.5-5.1) mmol/L Chloride 101 103 (98-107) mmol/L Carbon Dioxide 27 26 (21-32) mmol/L BUN 12 11 (7-18) mg/dl Creatinine 0.75 0.71 (0.6-1.4) mg/dl Glucose 156 H 124 H (70-99) mg/dl Calcium 9.5 9.1 (8.5-10.1) mg/dl AST 21 (15-37) U/L ALT 37 (12-78) U/L Alkaline Phosphatase 70 (45-117) U/L Total Protein 7.1 (6.4-8.2) gm/dl Albumin 3.6 (3.4-5.0) gm/dl Intake and Output 05/14/20 05/15/20 05/15/20 22:59 06:59 14:59 Intake Total 1300 / 1300 Output Total 500 / 1560 1060 / 1560 Balance 800 / -260 -1060 / -260 Intake: IV 1000 / 1000 Nss 1000ML 1,000 ml @ 999 mls/ 1000 / 1000 hr IV .Q1H1M ONE Rx#:[id number] Oral 300 / 300 Output: Urine 500 / 1560 1060 / 1560 Other: Weight 108.6 kg 106.5 kg Weight Measurement Method Chair Scale (1) Syncope Syncope type: unspecified Qualified Code(s): R55 - Syncope and collapse (2) HTN (hypertension) Hypertension type: unspecified Qualified Code(s): I10 - Essential (primary) hypertension
--- NOTE | 2020-05-15 12:01 | Communication Note ---
Date of Service: May 15, 2020 Patient reassessed, orthostatic vital signs reviewed. 1038, 10:39 AM, with static vital signs included supine blood pressure of 168/85, heart rate 74 Sitting up 160/88 Standing 150/85 mmHg -Patient is ambulated to the bathroom, no recurrent lightheadedness symptoms. Telemetry reveals stable findings. Plan: Reduce hydralazine from 75 mg 3 times daily to 50 mg 3 times daily. Add spironolactone 25 mg daily to his previous outpatient regimen. Continue remaining medications. Patient already has follow-up with me scheduled for next month. Stable for discharge from a cardiac perspective.
--- NOTE | 2020-05-15 12:11 | Hospitalist Progress Note ---
Date of Service May 15, 2020 Assessment & Plan (1) Syncope: (2) Hypertension: (3) Nonobstructive atherosclerosis of coronary artery: (4) Diabetes mellitus, type II: (5) Ascending aorta dilatation: (6) HLD (hyperlipidemia): (7) GERD (gastroesophageal reflux disease): (8) REANNA on CPAP: Patient is a 74 yr male with H/O DM II, nonobstructive CAD, HTN, ascending aorta dilatation, history of bifascicular block, HLD, REANNA on CPAP and other medical problems listed below who presents with syncopal and near syncopal episodes x 1 week. Syncope Presented with frequent episodes of near syncope and syncopal episode in the last week CXR without acute cardiopulmonary abnormalities. Venous Doppler study without evidence of DVT -CT Head: There is no hemorrhage, mass effect, or evidence of acute territorial ischemia by CT criteria. -Carotid Doppler: There is no sonographic evidence of hemodynamically significant stenosis in the right or left carotid arterial system. Antegrade flow is shown in the vertebral arteries. Hypertension as above. -ECHO: Mild concentric LVH. EF 55 to 60%. Grade 1 diastolic dysfunction. Mild mitral regurgitation. Proximal ascending aorta is mildly dilated with diameter of 3.9 cm -EKG: First-degree AV block, bifascicular block present, unchanged from prior -Negative Orthostatics -No arrhythmias on telemetry -Appreciate cardiology input -Hydralazine adjusted to 50 mg 3 times daily, started on spironolactone. 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 Insulin therapy while in-patient BSG AC HS REANNA CPAP HS DVT Px: SQ heparin Code status: FULL Disposition Plan to discharge home today Admission and Anticipated Discharge Date Admission Date: May 14, 2020 Subjective Patient is seen and examined at present States feeling much better today Denies chest pain, dyspnea, dizziness, nausea, abdominal pain Offers no other complaints No arrhythmias on monitor Discussed with cardiology today Plan to be discharged home today Orthostatics negative Review of Systems Review of Systems: All systems reviewed & are unremarkable except as noted in HPI & below Physical Exam Physical Exam: Physical Exam: Vitals signs as noted above General Appearance:Moderately built and nourished, no apparent distress Head: normocephalic, Atraumatic Eyes: normal inspection, EOMI Neck: supple, Trachea midline Respiratory/Chest: Normal breath sounds, CTA Cardiovascular: S1, S2, No murmur Abdomen/GI:Soft, Non tender, Bowel sounds present Extremities/Musculoskelatal:normal inspection, no edema Neurologic/Psych:AAOX3, grossly no focal neurological deficits Skin: normal color, warm Results & Data Results & Data ([facility]) Vital Signs (Past 12 Hours) Vital Signs Temp Pulse Pulse Pulse Resp BP BP 05/15/20 07:29 37 C 73 18 165/85 H 05/15/20 07:00 72 05/15/20 04:00 36.7 C 74 20 158/89 H 05/15/20 02:13 70 20 Pulse Ox 05/15/20 07:29 94 05/15/20 07:00 05/15/20 04:00 95 05/15/20 02:13 96
--- NOTE | 2020-05-15 12:45 | Communication Note ---
Date of Service: May 15, 2020 Code 44 attestation: He is a 74-year-old male with significant past medical history of type 2 diabetes, nonobstructive CAD, hypertension, ascending aortic dilatation, and history of bifascicular block, hyperlipidemia, REANNA on CPAP was admitted with syncopal episode especially when ambulating and upright. 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 His chart and imaging studies reviewed. He has been feeling a lot better since admission without any recurrence of syncope. He is medically stable to be discharged ,he will be discharged home this afternoon. By CMS guidelines, a determination that the admission or continued stay is not medically necessary has been made by a member of the UR committee and a physician for this hospital stay, therefore a Code 44 will be completed and the Inpatient admission will be changed to outpatient. Dr Chantale Muñoz Member UR Committee.
[2020-05-15] MEDS ORDERED: hydrALAZINE TAB 50 MG TAB PO SCH (14:00)
--- NOTE | 2020-05-15 15:00 | Discharge Summary ---
Date of Service May 15, 2020 Admission HPI Per Admitting Provider This is a 74yo M with a PMH of DM II, nonobstructive CAD, HTN, ascending aorta dilatation, history of bifascicular block, HLD, REANNA on CPAP and other medical problems listed below who presents with syncopal and near syncopal episodes x 1 week. Had full syncopal episode on Thursday when he was standing by bedroom when digesting mind. Denies any sudden positional change prior to developing lightheadedness and flushing followed by visual changes. Fell backwards onto the bed and does not think he hit his head. Endorses 5-6 other near syncopal episodes over the past week mostly occurring when patient is standing. Has occasionally occurred when he is sitting still but not as severe. He denies any associated chest pain or shortness of breath. No heart palpitations over the past few weeks. Does check blood pressure with cuff at home and noticed pressure was elevated on Thursday (150/101) but back to 130s/80s on Thursday. He is taking all medications as scheduled. Was sent in by PCP today for further syncopal evaluation. Had COVID last month, but had a fairly mild course with cough that resolved without requiring oxygen or steroids. No other recent illnesses, fevers, chills. No nausea, vomiting, or abdominal pain. No dysuria. Had a few episodes of diarrhea 2 weeks ago that have since resolved. Most recent TTE from 12/21/19 with preserved EF, grade 1 diastolic dysfunction, mild MR, mildly enlarged aortic root and ascending aorta is borderline enlarged - no significant change since Dec 2018 echo. Also with history of MRI brain from Dec 2018 with mild generalized volume loss with evidence of mild chronic microvascular ischemic change. Admission Exam Per Admitting Provider Physical Exam Physical Exam: General Appearance: WD/WN, vitals as above, NAD, sitting up in bed, pleasant, conversing easily Head: normocephalic, atraumatic Eyes: normal inspection, PERRL, conjunctivae normal, anicteric sclerae ENT: external ear and nose normal, oropharynx normal Neck: normal visual inspection, trachea midline, no thyromegaly Respiratory: normal respiratory effort, lungs clear to auscultation, no wheeze, rales, rhonchi. No accessory muscle use Cardiovascular: regular rate, rhythm, no murmur appreciated, normal peripheral pulses, no BLE edema. Vessels: no JVD Chest: normal inspection of chest Abdomen/GI: normal bowel sounds, soft, nontender, no hepatosplenomegaly Extremities/Musculoskeletal: no cyanosis or clubbing, extremities motor strength 5/5 Neurologic: PERRL, EOMI, accommodation nl, no face palsy, no dysarthria, CN's II-XI intact bilaterally and moves all extremities Psychiatric: A+Ox3, euthymic affect Skin: no rashes, normal color, warm/dry Principal Diagnosis Syncope Hypertensive urgency Discharge Data Allergies Allergy/AdvReac Type Severity Reaction Status Date / Time iodine Allergy Unknown Verified 05/14/20 15:54 shellfish derived Allergy FULL BODY Unverified 05/14/20 15:54 ITCHING IODINE BETADINE Allergy Unknown FULL BODY Uncoded 05/14/20 15:54 ITCHING Consultations 05/14/20 14:45 ED Decision to Admit Stat 05/14/20 18:03 Consult Cardiology Routine Procedures Performed CT Head: There is no hemorrhage, mass effect, or evidence of acute territorial ischemia by CT criteria. Carotid Doppler: There is no sonographic evidence of hemodynamically significant stenosis in the right or left carotid arterial system. Antegrade flow is shown in the vertebral arteries. Hypertension as above. ECHO: Mild concentric LVH. EF 55 to 60%. Grade 1 diastolic dysfunction. Mild mitral regurgitation. Proximal ascending aorta is mildly dilated with diameter of 3.9 cm Venous Doppler No DVT within the right or left lower extremity. CXR: Mild cardiomegaly. No acute findings. Ordered Studies 05/14/20 13:34 US venous doppler LE BI Stat 05/14/20 16:06 CT head/brain wo con Routine US carotid doppler BI Routine Hospital Course (1) Syncope: (2) Hypertension: (3) Nonobstructive atherosclerosis of coronary artery: (4) Diabetes mellitus, type II: (5) Ascending aorta dilatation: (6) HLD (hyperlipidemia): (7) GERD (gastroesophageal reflux disease): (8) REANNA on CPAP: Patient is a 74 yr male with H/O DM II, nonobstructive CAD, HTN, ascending aorta dilatation, history of bifascicular block, HLD, REANNA on CPAP and other medical problems listed below who presents with syncopal and near syncopal episodes x 1 week. Syncope Presented with frequent episodes of near syncope and syncopal episode in the last week CXR without acute cardiopulmonary abnormalities. Venous Doppler study without evidence of DVT -CT Head: There is no hemorrhage, mass effect, or evidence of acute territorial ischemia by CT criteria. -Carotid Doppler: There is no sonographic evidence of hemodynamically significant stenosis in the right or left carotid arterial system. Antegrade flow is shown in the vertebral arteries. Hypertension as above. -ECHO: Mild concentric LVH. EF 55 to 60%. Grade 1 diastolic dysfunction. Mild mitral regurgitation. Proximal ascending aorta is mildly dilated with diameter of 3.9 cm -EKG: First-degree AV block, bifascicular block present, unchanged from prior -Negative Orthostatics -No arrhythmias on telemetry -Appreciate cardiology input -Hydralazine adjusted to 50 mg 3 times daily, started on spironolactone. 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 Insulin therapy while in-patient BSG AC HS REANNA CPAP HS DVT Px: SQ heparin Code status: FULL Disposition Plan to discharge home today Total Time Total Time Spent Total Time Spent (In Minutes): 28 minutes Total Time Includes: Examination of the Patient, Discharge Planning, Medication Reconciliation, Communication With Other Providers and Other Discharge Plan Discharge Items Patient Disposition: Home - Self-Care Reason For Visit: SYNCOPE, HTN Discharge Diagnosis: Syncope Hypertensive urgency Activity: Per Instructions section Exercise/Sports: Gradually increase as tolerated Non-emergency contact: Primary Care Provider, Battery Container Tester and Neurologist Call non-emergency contact if: you have any medication questions, your symptoms worsen, your pain is concerning for you and you have a fever Follow-up/Referrals: Humberto Reyes MD [Primary Care Provider] - (Date & Time 05/18/2020 10:00 AM Provider Humberto Reyes MD Department Family Practice [facility] ) Diet: Carb Consistent or DM2 and Heart Healthy Addtl Attending Provider Instructions: Follow up with your PCP on 05/18/2020 10:00 AM as scheduled Follow up with your promotions executive producer Dr. Mcnair as advised Consider following with your neurologist as needed Seek immediate medical attention if your symptoms reoccur or worsen Pending Studies at Discharge: No Stand-Alone Forms: My [facility], Smoking Cessation Medications and DC Order Prescriptions: New spironolactone 25 mg Tablet 25 mg PO QAM Qty: 30 RF: 0 hydralazine 50 mg Tablet 50 mg PO TID Qty: 90 RF: 0 Continued diclofenac sodium [Voltaren] 1 % Gel 2 g TOPICAL TID PRN (Reason: Pain) RF: 0 metoprolol tartrate 50 mg tablet 50 mg PO BID RF: 0 loratadine 10 mg Tablet 10 mg PO DAILY RF: 0 tamsulosin 0.4 mg capsule 0.4 mg PO DAILY RF: 0 valacyclovir 500 mg tablet 500 mg PO DAILY RF: 0 glipizide 5 mg tablet 10 mg PO AMPM RF: 0 atorvastatin 40 mg tablet 40 mg PO DAILY RF: 0 hydrochlorothiazide 25 mg tablet 25 mg PO DAILY RF: 0 metformin 1,000 mg tablet 1,000 mg PO BID RF: 0 losartan 100 mg tablet 100 mg PO DAILY RF: 0 aspirin 81 mg Tablet,Delayed Release (Dr/Ec) 81 mg PO DAILY RF: 0 omeprazole 20 mg capsule,delayed release(DR/EC) 20 mg PO HS RF: 0 omega 8-bsi-sqo-fish oil [Fish Oil] 360-1,200 mg Capsule,Delayed Release(Dr/Ec) 1 cap PO DAILY RF: 0 fluticasone propionate 50 mcg/actuation spray,suspension 2 spray INTRANASAL QAM RF: 0 Ozempic 1 mg/dose (2 mg/1.5 mL) pen injector 1 mg SUBCUT WK RF: 0 Discontinued hydralazine 100 mg tablet 75 mg PO TID RF: 0 Discharge Orders: Discharge Order (Routine); Ordered 05/15/20 Ordered By: Manjeet Moralez/Other Patient Handouts: Managing Type 2 Diabetes, What Is Syncope?, Causes of Syncope, Spironolactone tablets Admission Data Admit Date/Time: 05/14/20 15:17 Attending Provider: Manjeet Figueroa Admit Provider: Manjeet Figueroa Primary Care Provider: Humberto Reyes Other Providers: Manjeet Figueroa ; Bennie Salamanca Other Interventions: Discharge Summary Assessment (RN) Last Done: 05/15/20 13:40
--- NOTE | 2020-05-16 06:32 | Electrocardiogram Report ---
Test Reason : Blood Pressure : / mmHG Vent. Rate : 073 BPM Atrial Rate : 073 BPM P-R Int : 218 ms QRS Dur : 162 ms QT Int : 470 ms P-R-T Axes : 054 -62 013 degrees QTc Int : 517 ms Sinus rhythm with 1st degree A-V block Right bundle branch block Left anterior fascicular block Bifascicular block Minimal voltage criteria for LVH, may be normal variant Abnormal ECG When compared with ECG of 14-MAY-2020 13:34, Premature atrial complexes are no longer Present Confirmed by Sixto Thomason ([id number]) on 05/16/2020 6:32:29 AM Referred By: Emilie Jeffrey Confirmed By:Sixto Thomason
[2020-05-16] MEDS ORDERED: SPIRONOLACTONE 25 MG TAB PO SCH (09:00)
== END 2020-05-15 14:32 | disposition home or self-care (01) ==
LOC: ED 13:18 → INTOOBSV 15:17 → 2S 15:17

== ENCOUNTER 2020-06-09 03:32 | Observation (INO) ==
[2020-06-09 04:01] LABS: Basophils # (auto) 0.04 K/uL (0-0.2); Basophils % (auto) 0.5 %; Eosinophils # (auto) 0.21 K/uL (0-0.5); Eosinophils % (auto) 2.6 %; Hematocrit (blood only) 41.7 % (42-52); Hemoglobin 14.1 g/dL (14.0-18.0); Immature Granulocytes # (auto) 0.01 K/uL (0.00-0.02); Immature Granulocytes % (auto) 0.1 %; Lymphocytes # (auto) 1.66 K/uL (1.2-3.4); Lymphocytes % (auto) 20.4 %; Mean Corpuscular Hgb Conc 33.8 g/dL (32-36); Mean Corpuscular Volume 85.8 fL (80-100); Mean Platelet Volume 9.9 fL (7.4-10.4); Monocytes # (auto) 1.01 K/uL (0.11-0.59); Monocytes % (auto) 12.4 %; Neutrophils # (auto) 5.22 K/uL (1.4-6.5); Platelet Count 243 K/uL (130-400); RDW Coefficient of Variation 14.8 % (11.5-14.5); RDW Standard Deviation 46.2 fL (36.4-46.3); Red Blood Count 4.86 M/uL (4.7-6.1); White Blood Count 8.15 K/uL (4.8-10.8)
[2020-06-09] MEDS ORDERED: METOPROLOL TARTRATE 1 MG/ML VIAL IV STA ×3 (04:01→06:02)
[2020-06-09 04:17] LABS: Albumin Level 3.6 gm/dl (3.4-5.0); BUN Creatinine Ratio 12.6 (10-20); Calcium 9.1 mg/dl (8.5-10.1); Creatinine Clr Calc Pharmacy 72.8 ml/min; Est GFR (African American) 73.5; Est GFR (Non-African American) 63.4; Magnesium 1.9 mg/dl (1.8-2.4)
[2020-06-09 04:28] LABS: Albumin Globulin Ratio 1.1 (0.9-2); Bilirubin,Total 0.6 mg/dl (0.2-1); Globulin 3.3 gm/dl (2.5-4.0); Thyroid Stimulating Hormone 8.64 uIu/ml (0.300-4.500); Total Protein 6.9 gm/dl (6.4-8.2)
[2020-06-09 04:40] LABS: T4 Free Thyroxine 0.98 ng/dl (0.8-1.6)
--- NOTE | 2020-06-09 05:24 | Emergency Department Note ---
Impression & Plan SVT (supraventricular tachycardia) ED Provider Note NAME: NILAY BLACK AGE: 74 SEX: M ARRIVES VIA: Ambulance INFORMANT: Patient ED PROVIDER(S): Raegan Harper DO CHIEF COMPLAINT: Chest pain and tachycardia PLAN: Disposition: Admitted to the [facility] service. Condition: Good MEDICAL DECISION MAKING: this is a 74-year-old male patient who Woke from sleep with a chest burning sensation and noted that his heart rate was 191. The patient has a history of SVT. The patient thought that the symptoms would subside but he checked his blood pressure and found that it continued to go up and he called EMS. While here in the emergency department, the patient was having paroxysmal episodes of SVT. He received multiple doses of Lopressor which would briefly control his ta chycardia but then it would recur. The patient remained hemodynamically stable but he was having rates as high as the 180s-190s. I discussed the case with the [facility] and they will evaluate for further management. Triage Nursing notes reviewed and agree them. Additional history obtained from EMS Prior medical records reviewed Vital Signs: reviewed and unremarkable Differential diagnosis: Paroxysmal SVT, electrolyte abnormality, thyroid dysfunction, cardiac ischemia ER treatment provided: IV Lopressor x2 Diagnostics interpreted by me: ECG: Normal sinus rhythm with a first-degree AV block at a rate of 85. There is a right bundle branch block noted also. The first-degree A-V block and right bundle branch block are unchanged from an EKG that was done in April 2020. Cardiac Monitoring: Normal sinus rhythm at a rate of 86 The patient is having intermittent episodes of SVT with rates between 180 and 190 Laboratory studies: See below Imaging studies: Chest x-ray: No acute pulmonary infiltrates or cardiomegaly HPI: 74/M arrives for evaluation of chest burning and tachycardia. The patient awoke from sleep feeling as if his chest was on fire. He noted that his blood pressure was significantly elevated and his heart rate was at 191. The patient describes having history of SVT and thought that the heart rate would slow down but it did not. He rechecked his blood pressure and found that it was increasing and called 911. The patient thought that the chest burning may be coming from his esophagus. He denied any associated shortness of breath or any changes in his medications. ROS: See above HPI for pertinent positives & negatives. A total of 10 systems reviewed and were otherwise negative. PAST MEDICAL HISTORY:See Below PAST SURGICAL HISTORY:See Below FAMILY HISTORY:See Below SOCIAL HISTORY:See Below HOME MEDICATIONS:See list ALLERGIES:See list VITALS:See Below PHYSICAL EXAMINATION: HEENT: Head - normocephalic and atraumatic Pupils are equal, round, and reactive to light. Extraocular eye muscles are intact, and sclera are anicteric. Nose - moist nasal mucosa without discharge. Mouth - moist buccal mucosa. Oropharynx is nonerythematous and there is no tonsillar exudate or edema noted. Neck: Supple; no cervical lymphadenopathy. Heart: Regular rate and rhythm. There is a normal S1 and S2 with no murmurs, clicks, or gallops appreciated. Lungs: Clear to auscultation bilaterally with no wheezes, rales, or rhonchi. Abdomen: Soft, completely nontender, nondistended, with good bowel sounds. There are no palpable pulsatile masses or hepatosplenomegaly. There is no guarding, rigidity, or rebound noted. Extremities: No evidence of cyanosis, clubbing, or edema. There are easily palpable peripheral pulses. Skin: warm and dry with good turgor and no rashes. ED COURSE: Times/Reassessments: 0335: The patient was evaluated emergently in room A1 for SVT. An order was placed for continuous cardiac monitoring. The patient was in a normal sinus rhythm at a rate of 86. An IV lock was initiated and labs were drawn as above. The patient was given 5 mg of IV Lopressor. A twelve-lead EKG was obtained. Portable chest x-ray was performed. The patient was moved to C3 0430: I reevaluated the patient at this time and he continues to feel well although he has had a couple more intermittent episodes of SVT that were self- limited. 0505:I reviewed results of laboratory studies with the patient. 0520: Nursing staff alerted me that the patient was having increased frequent episodes of SVT and his blood pressure had gone up again. He received a second dose of IV Lopressor-5 mg. The patient tolerated this well in the tachycardic episode stopped. I discussed the case with Dr. Goodson and Covid testing was ordered for admission. I have personally spent greater than 50 minutes of critical care time in the direct management of this patient. This includes bedside care, interpretation of diagnostic studies, and testing, discussion with consultants, patient, and family members, and other required patient management activities. This 50 minutes is in excess of all separately billable procedures. Raegan Harper DO Past Med/Surg History Medical History Ascending aorta dilatation Diabetes mellitus, type II GERD (gastroesophageal reflux disease) HLD (hyperlipidemia) Hypertension Nonobstructive atherosclerosis of coronary artery REANNA on CPAP Surgical History H/O cardiac catheterization History of partial colectomy History of tonsillectomy S/p nephrectomy Family History Other Colorectal cancer Lung cancer Social History Smoking Status: Never smoker Years Smoked: 30; Second Hand Exposure: No; Hx Alcohol Use: No Hx Substance Use: No Preferred Language: Mongolian Communication Ability: Effective Pay Per Click Strategist Required: No Beliefs That Will Affect Care: None Current Living Situation: Family Feels Safe at Home: Yes Safety Concerns: Feels Safe At This Time Assistive Devices: Hearing Aid - Bilateral Allergies Allergies Allergy/AdvReac Type Severity Reaction Status Date / Time iodine Allergy Intermediate FULL BODY Verified 06/09/20 04:07 ITCHING shellfish derived Allergy Intermediate FULL BODY Verified 06/09/20 04:07 ITCHING IODINE BETADINE Allergy Intermediate FULL BODY Uncoded 06/09/20 04:07 ITCHING Home Meds Home Medications Medication Instructions Recorded Confirmed Ozempic 1 mg SUBCUT WK 08/13/19 06/09/20 aspirin 81 mg PO DAILY 08/13/19 06/09/20 atorvastatin 40 mg PO DAILY 08/13/19 06/09/20 fluticasone propionate 2 spray INTRANASAL QAM 08/13/19 06/09/20 glipizide 10 mg PO AMPM 08/13/19 06/09/20 hydrochlorothiazide 25 mg PO QDL 08/13/19 06/09/20 losartan 100 mg PO DAILY 08/13/19 06/09/20 metformin 1,000 mg PO BID 08/13/19 06/09/20 omega 3-apw-izx-fish oil [Fish Oil] 1 cap PO DAILY 08/13/19 06/09/20 omeprazole 20 mg PO HS 08/13/19 06/09/20 diclofenac sodium [Voltaren] 2 g TOPICAL TID PRN 05/14/20 06/09/20 loratadine 10 mg PO DAILY 05/14/20 06/09/20 metoprolol tartrate 50 mg PO BID 05/14/20 06/09/20 tamsulosin 0.4 mg PO DAILY 05/14/20 06/09/20 valacyclovir 500 mg PO DAILY 05/14/20 06/09/20 Previous Rx's Medication Instructions Recorded hydralazine 50 mg PO TID #90 tab 05/15/20 spironolactone 25 mg PO QAM #30 tab 05/15/20 Results & Data (ED) Vital Signs Vital Signs - 24 hr 06/09/20 03:38 06/09/20 03:40 06/09/20 04:00 Temperature 36.7 C Temperature Source Oral Pulse Rate 82 88 85 Pulse Rate from SpO2 Sensor 84 72 Respiratory Rate 20 Respiratory Depth Normal Blood Pressure 137/83 141/102 H Blood Pressure Mean 101 115 Pulse Oximetry 97 98 95 Oxygen Delivery Method Room Air Room Air Sepsis Recent Fever Within 48 Hours No Sepsis New/Unexplained Change in Mental Status N/A Sepsis Action Taken by Nursing No Action Required 06/09/20 04:07 06/09/20 04:15 06/09/20 04:30 Temperature Temperature Source Pulse Rate 85 79 81 Pulse Rate from SpO2 Sensor 70 Respiratory Rate 20 15 Respiratory Depth Blood Pressure 126/70 116/80 118/73 Blood Pressure Mean 92 88 Pulse Oximetry 95 Oxygen Delivery Method Sepsis Recent Fever Within 48 Hours Sepsis New/Unexplained Change in Mental Status Sepsis Action Taken by Nursing 06/09/20 04:36 06/09/20 04:37 06/09/20 05:00 Temperature Temperature Source Pulse Rate 82 81 80 Pulse Rate from SpO2 Sensor 83 80 76 Respiratory Rate 25 H 17 15 Respiratory Depth Blood Pressure 121/80 125/71 Blood Pressure Mean 93 89 Pulse Oximetry 97 98 96 Oxygen Delivery Method Sepsis Recent Fever Within 48 Hours Sepsis New/Unexplained Change in Mental Status Sepsis Action Taken by Nursing 06/09/20 05:17 06/09/20 05:22 06/09/20 05:28 Temperature Temperature Source Pulse Rate 77 141 H 151 H Pulse Rate from SpO2 Sensor 79 73 Respiratory Rate 13 19 Respiratory Depth Blood Pressure 153/90 H 128/96 128/96 Blood Pressure Mean 111 106 Pulse Oximetry 97 97 Oxygen Delivery Method Sepsis Recent Fever Within 48 Hours Sepsis New/Unexplained Change in Mental Status Sepsis Action Taken by Nursing 06/09/20 05:30 06/09/20 05:57 06/09/20 05:58 Temperature Temperature Source Pulse Rate 92 H 143 H 107 H Pulse Rate from SpO2 Sensor 69 76 Respiratory Rate 14 17 19 Respiratory Depth Blood Pressure 130/74 125/76 131/84 Blood Pressure Mean 92 92 99 Pulse Oximetry 96 96 96 Oxygen Delivery Method Room Air Sepsis Recent Fever Within 48 Hours Sepsis New/Unexplained Change in Mental Status Sepsis Action Taken by Nursing 06/09/20 06:00 Temperature Temperature Source Pulse Rate 121 H Pulse Rate from SpO2 Sensor 71 Respiratory Rate 16 Respiratory Depth Blood Pressure 152/80 H Blood Pressure Mean 104 Pulse Oximetry 97 Oxygen Delivery Method Sepsis Recent Fever Within 48 Hours Sepsis New/Unexplained Change in Mental Status Sepsis Action Taken by Nursing Laboratory Data Result diagrams: 06/09/20 03:52 06/09/20 03:52 Lab Results 06/09/20 06/09/20 06/09/20 Range/Units 03:52 03:52 03:52 WBC 8.15 (4.8-10.8) K/uL RBC 4.86 (4.7-6.1) M/uL Hgb 14.1 (14.0-18.0) g/dL Hct 41.7 L (42-52) % MCV 85.8 (80-100) fL MCH 29.0 (25-34) pg MCHC 33.8 (32-36) g/dL RDW Std Deviation 46.2 (36.4-46.3) fL RDW Coeff of Kyleigh 14.8 H (11.5-14.5) % Plt Count 243 (130-400) K/uL MPV 9.9 (7.4-10.4) fL Immature Gran % (Auto) 0.1 % Neut % (Auto) 64.0 % Lymph % (Auto) 20.4 % [place] % (Auto) 12.4 % Eos % (Auto) 2.6 % Baso % (Auto) 0.5 % Neut # (Auto) 5.22 (1.4-6.5) K/uL Lymph # (Auto) 1.66 (1.2-3.4) K/uL [place] # (Auto) 1.01 H (0.11-0.59) K/uL Eos # (Auto) 0.21 (0-0.5) K/uL Baso # (Auto) 0.04 (0-0.2) K/uL Immature Gran # (Auto) 0.01 (0.00-0.02) K/uL APTT 25.2 (21.0-31.0) Seconds PTT Ratio 1.0 D-Dimer 260 (0-500) ug/L FEU Sodium 136 (136-145) mmol/L Potassium 4.0 (3.5-5.1) mmol/L Chloride 101 (98-107) mmol/L Carbon Dioxide 28 (21-32) mmol/L Anion Gap 7.0 (3-11) BUN 14 (7-18) mg/dl Creatinine 1.14 (0.6-1.4) mg/dl Est Cr Clr Drug Dosing 72.8 ml/min Est GFR ( Amer) 73.5 Est GFR (Non-Af Amer) 63.4 BUN/Creatinine Ratio 12.6 (10-20) Glucose 182 H (70-99) mg/dl Calcium 9.1 (8.5-10.1) mg/dl Magnesium 1.9 (1.8-2.4) mg/dl Total Bilirubin 0.6 (0.2-1) mg/dl AST 18 (15-37) U/L ALT 36 (12-78) U/L Alkaline Phosphatase 74 (45-117) U/L Total Protein 6.9 (6.4-8.2) gm/dl Albumin 3.6 (3.4-5.0) gm/dl Globulin 3.3 (2.5-4.0) gm/dl Albumin/Globulin Ratio 1.1 (0.9-2) TSH 8.640 H (0.300-4.500) uIu/ml Free T4 0.98 (0.8-1.6) ng/dl COVID-19 Eval Order SARS-CoV-2, RNA, NAAT (NEGATIVE) 06/09/20 06/09/20 Range/Units 05:31 05:31 WBC (4.8-10.8) K/uL RBC (4.7-6.1) M/uL Hgb (14.0-18.0) g/dL Hct (42-52) % MCV (80-100) fL MCH (25-34) pg MCHC (32-36) g/dL RDW Std Deviation (36.4-46.3) fL RDW Coeff of Kyleigh (11.5-14.5) % Plt Count (130-400) K/uL MPV (7.4-10.4) fL Immature Gran % (Auto) % Neut % (Auto) % Lymph % (Auto) % [place] % (Auto) % Eos % (Auto) % Baso % (Auto) % Neut # (Auto) (1.4-6.5) K/uL Lymph # (Auto) (1.2-3.4) K/uL [place] # (Auto) (0.11-0.59) K/uL Eos # (Auto) (0-0.5) K/uL Baso # (Auto) (0-0.2) K/uL Immature Gran # (Auto) (0.00-0.02) K/uL APTT (21.0-31.0) Seconds PTT Ratio D-Dimer (0-500) ug/L FEU Sodium (136-145) mmol/L Potassium (3.5-5.1) mmol/L Chloride (98-107) mmol/L Carbon Dioxide (21-32) mmol/L Anion Gap (3-11) BUN (7-18) mg/dl Creatinine (0.6-1.4) mg/dl Est Cr Clr Drug Dosing ml/min Est GFR ( Amer) Est GFR (Non-Af Amer) BUN/Creatinine Ratio (10-20) Glucose (70-99) mg/dl Calcium (8.5-10.1) mg/dl Magnesium (1.8-2.4) mg/dl Total Bilirubin (0.2-1) mg/dl AST (15-37) U/L ALT (12-78) U/L Alkaline Phosphatase (45-117) U/L Total Protein (6.4-8.2) gm/dl Albumin (3.4-5.0) gm/dl Globulin (2.5-4.0) gm/dl Albumin/Globulin Ratio (0.9-2) TSH (0.300-4.500) uIu/ml Free T4 (0.8-1.6) ng/dl COVID-19 Eval [email or web address] SARS-CoV-2, RNA, NAAT NEGATIVE (NEGATIVE) Administered Medications Discontinued Medications Magnesium Sulfate/Dextrose (Magnesium Sulfate / D5w) 1 gm in 100 mls @ 50 mls/hr IV ONE STA Stop: 06/09/20 07:46 Last Infusion: 06/09/20 07:08 Dose: 0 mls/hr Documented by: [id number] Admin: 06/09/20 06:07 Dose: 50 mls/hr Documented by: [id number] Metoprolol Tartrate (Metoprolol Tartrate 1 Mg/Ml Vial) 5 mg IV NOW STA Stop: 06/09/20 04:02 Last Admin: 06/09/20 04:07 Dose: 5 mg Documented by: [id number] Metoprolol Tartrate (Metoprolol Tartrate 1 Mg/Ml Vial) 5 mg IV NOW STA Stop: 06/09/20 05:23 Last Admin: 06/09/20 05:28 Dose: 5 mg Documented by: [id number] Metoprolol Tartrate (Metoprolol Tartrate 1 Mg/Ml Vial) 2.5 mg IV NOW STA Stop: 06/09/20 06:03 Last Admin: 06/09/20 07:46 Dose: Not Given Documented by: [id number] Metoprolol Tartrate (Metoprolol Tartrate 50 Mg Tab) 50 mg PO NOW STA Stop: 06/09/20 06:28 Last Admin: 06/09/20 06:47 Dose: 50 mg Documented by: [id number] Discharge Plan Visit Data Chief Complaint: Cardiac Assessment Stated Complaint: CARDIAC ASSESSMENT/NEAR SYNCOPAL ED Provider: Raegan Harper Discharge Problem: SVT (supraventricular tachycardia) Patient Disposition: Admitted As Inpatient Discharge Instructions Interventions: ED Discharge Assessment Last Done: 06/09/20 07:15
[2020-06-09] MEDS ORDERED: MAGNESIUM SULFATE / D5W 1 GM/100 ML BAG IV STA (05:47)
[2020-06-09] MEDS ORDERED: SODIUM CHLORIDE 0.9% 500 ML IV ONE (06:02)
[2020-06-09] MEDS ORDERED: 0.2 MICRON FILTER SET 1 EA IV ONE (06:13)
[2020-06-09] MEDS ORDERED: STAT IV Infusion **Titration per Protocol STA (06:13)
[2020-06-09] MEDS ORDERED: AMIODARONE / D5W 360 MG/200 ML BAG IV ONE (06:13)
[2020-06-09] MEDS ORDERED: AMIODARONE / D5W 150 MG/100 ML BAG IV STA (06:13)
[2020-06-09] MEDS ORDERED: AMIODARONE IV BOLUS & DRIP IV STA (06:13)
[2020-06-09 06:14] LABS: D Dimer 260 ug/L FEU (0-500); Partial Thromboplastin Time 25.2 Seconds (21.0-31.0)
[2020-06-09] MEDS ORDERED: METOPROLOL TARTRATE 50 MG TAB PO STA (06:27)
--- NOTE | 2020-06-09 06:27 | History & Physical Report ---
Date of Service June 09, 2020 Assessment & Plan (1) SVT (supraventricular tachycardia): Presenting as near syncope, intermittent events hypertension, intermittent elevation at the ER hyperlipidemia on statin Rx hx nonobstructive CAD/ PVD (aortic root/ascending aorta dilatation) DM2 on oral medications, well-controlled as of recent hemoglobin A1c of 7.28 April 2020 chronic anemia, hemoglobin better than baseline possibly from some hemoconcentration REANNA on CPAP past tobacco abuse. PCU Titrate home metoprolol dose. Vagal maneuvers as needed Cardiology consult Re: PSVT Basal insulin, ISS BG goal [id number], carb count coverage DVT prophylaxis per Lovenox subcu Full code Text document was generated using [employer] voice recognition software. It may contain grammatical or spelling errors. Kindly contact undersigned for clarification of any documentation item in question. History of Present Illness Primary Care Provider: Humberto Reyes MD History obtained from patient and records. Medical history significant for hypertension, hyperlipidemia, nonobstructive CAD, PVD (aortic root/ascending aorta dilatation), DM2 on oral medications, chronic anemia (baseline hemoglobin 12-13), REANNA on CPAP, past tobacco abuse. Recent confinement 3 weeks ago for syncope, hypertensive urgency. 2D echo showed mild concentric LVH, EF 55 to 60%, grade 1 diastolic dysfunction. Mild mitral regurgitation. Proximal ascending aorta mildly dilated with diameter of 3.9 cm. Negative orthostatics, no arrhythmias noted on telemetry as per documentation. Hydralazine dose adjusted on discharge Patient discharged on spironolactone. No recurrence of syncope at home. Better BP control as per documentation. Last week, patient noted intermittent near syncopal events at home not related to exertion. No chest pain, no S OB, no palpitations. Good BP control as per documentation. 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 Bicycle Ii Assembler recommended outpatient neurology eval for possible seizure events. Hydralazine dose decreased from 50 mg 3 times daily to 25 mg 3 times daily. Patient roused from sleep early this morning by chest tightness, palpitations, dizziness, nausea and sensation that he is going to pass out. No cough, no unusual shortness of breath. At the ER, patient given intermittent doses of metoprolol administered for PSVT. 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 Allergies Allergy/AdvReac Type Severity Reaction Status Date / Time iodine Allergy Intermediate FULL BODY Verified 06/09/20 04:07 ITCHING shellfish derived Allergy Intermediate FULL BODY Verified 06/09/20 04:07 ITCHING IODINE BETADINE Allergy Intermediate FULL BODY Uncoded 06/09/20 04:07 ITCHING Home Medications Medication Instructions Recorded Confirmed Type Ozempic 1 mg SUBCUT WK 08/13/19 06/09/20 History aspirin 81 mg PO DAILY 08/13/19 06/09/20 History atorvastatin 40 mg PO DAILY 08/13/19 06/09/20 History fluticasone propionate 2 spray INTRANASAL QAM 08/13/19 06/09/20 History glipizide 10 mg PO AMPM 08/13/19 06/09/20 History hydrochlorothiazide 25 mg PO QDL 08/13/19 06/09/20 History losartan 100 mg PO DAILY 08/13/19 06/09/20 History metformin 1,000 mg PO BID 08/13/19 06/09/20 History omega 8-qvm-tca-fish oil [Fish Oil] 1 cap PO DAILY 08/13/19 06/09/20 History omeprazole 20 mg PO HS 08/13/19 06/09/20 History diclofenac sodium [Voltaren] 2 g TOPICAL TID PRN 05/14/20 06/09/20 History loratadine 10 mg PO DAILY 05/14/20 06/09/20 History metoprolol tartrate 50 mg PO BID 05/14/20 06/09/20 History tamsulosin 0.4 mg PO DAILY 05/14/20 06/09/20 History valacyclovir 500 mg PO DAILY 05/14/20 06/09/20 History hydralazine 50 mg PO TID #90 tab 05/15/20 06/09/20 Rx spironolactone 25 mg PO QAM #30 tab 05/15/20 06/09/20 Rx Past Med/Surg History Medical History Ascending aorta dilatation Diabetes mellitus, type II GERD (gastroesophageal reflux disease) HLD (hyperlipidemia) Hypertension Nonobstructive atherosclerosis of coronary artery REANNA on CPAP Surgical History H/O cardiac catheterization History of partial colectomy History of tonsillectomy S/p nephrectomy Family History Other Colorectal cancer Lung cancer Social History Smoking Status: Never smoker Years Smoked: 30; Second Hand Exposure: No; Hx Alcohol Use: No Hx Substance Use: No Preferred Language: Mauritian Communication Ability: Effective Biomedical Analytical Scientist Required: No Beliefs That Will Affect Care: None Current Living Situation: Family Feels Safe at Home: Yes Safety Concerns: Feels Safe At This Time Assistive Devices: Hearing Aid - Bilateral Review of Systems Review of Systems: As per HPI, all 10 systems reviewed, all other ROS negative Physical Exam Physical Exam: GENERAL: Comfortable, slightly anxious, pleasant, obese, looks younger for stated age, no respiratory distress SKIN: Pallor , warm HEENT: Alopecia, pale palpebral conjunctivae, no ptosis, dry buccal mucosa NECK : Supple, no tenderness CHEST : CTA, no tenderness HEART : Tachycardic, no obvious murmurs ABDOMEN: Some distention, nontender EXTREMITIES : No LE swelling/tenderness, no other conspicuous deformities noted NEUROLOGIC : Coherent, no facial asymmetry, no other gross focality Results & Data Results & Data ([facility]) Vital Signs (Past 12 Hours) Vital Signs Temp Pulse Resp BP Pulse Ox 06/09/20 06:00 121 H 16 152/80 H 97 06/09/20 05:58 107 H 19 131/84 96 06/09/20 05:57 143 H 17 125/76 96 06/09/20 05:30 92 H 14 130/74 96 06/09/20 05:28 151 H 128/96 06/09/20 05:22 141 H 19 128/96 97 06/09/20 05:17 77 13 153/90 H 97 06/09/20 05:00 80 15 125/71 96 06/09/20 04:37 81 17 98 06/09/20 04:36 82 25 H 121/80 97 06/09/20 04:30 81 15 118/73 95 06/09/20 04:15 79 20 116/80 06/09/20 04:07 85 126/70 06/09/20 04:00 85 95 06/09/20 03:40 88 141/102 H 98 06/09/20 03:38 36.7 C 82 20 137/83 97 Laboratory Results Laboratory Results WBC 8.15 K/uL (4.8-10.8) 06/09/20 03:52 RBC 4.86 M/uL (4.7-6.1) 06/09/20 03:52 Hgb 14.1 g/dL (14.0-18.0) 06/09/20 03:52 Hct 41.7 % (42-52) L 06/09/20 03:52 MCV 85.8 fL (80-100) 06/09/20 03:52 MCH 29.0 pg (25-34) 06/09/20 03:52 MCHC 33.8 g/dL (32-36) 06/09/20 03:52 RDW Std Deviation 46.2 fL (36.4-46.3) 06/09/20 03:52 RDW Coeff of Kyleigh 14.8 % (11.5-14.5) H 06/09/20 03:52 Plt Count 243 K/uL (130-400) 06/09/20 03:52 MPV 9.9 fL (7.4-10.4) 06/09/20 03:52 Immature Gran % (Auto) 0.1 % 06/09/20 03:52 Neut % (Auto) 64.0 % 06/09/20 03:52 Lymph % (Auto) 20.4 % 06/09/20 03:52 [place] % (Auto) 12.4 % 06/09/20 03:52 Eos % (Auto) 2.6 % 06/09/20 03:52 Baso % (Auto) 0.5 % 06/09/20 03:52 Neut # (Auto) 5.22 K/uL (1.4-6.5) 06/09/20 03:52 Lymph # (Auto) 1.66 K/uL (1.2-3.4) 06/09/20 03:52 [place] # (Auto) 1.01 K/uL (0.11-0.59) H 06/09/20 03:52 Eos # (Auto) 0.21 K/uL (0-0.5) 06/09/20 03:52 Baso # (Auto) 0.04 K/uL (0-0.2) 06/09/20 03:52 Immature Gran # (Auto) 0.01 K/uL (0.00-0.02) 06/09/20 03:52 APTT 25.2 Seconds (21.0-31.0) 06/09/20 03:52 PTT Ratio 1.0 06/09/20 03:52 D-Dimer 260 ug/L FEU (0-500) 06/09/20 03:52 Sodium 136 mmol/L (136-145) 06/09/20 03:52 Potassium 4.0 mmol/L (3.5-5.1) 06/09/20 03:52 Chloride 101 mmol/L (98-107) 06/09/20 03:52 Carbon Dioxide 28 mmol/L (21-32) 06/09/20 03:52 Anion Gap 7.0 (3-11) 06/09/20 03:52 BUN 14 mg/dl (7-18) 06/09/20 03:52 Creatinine 1.14 mg/dl (0.6-1.4) 06/09/20 03:52 Est Cr Clr Drug Dosing 72.8 ml/min 06/09/20 03:52 Est GFR ( Amer) 73.5 06/09/20 03:52 Est GFR (Non-Af Amer) 63.4 06/09/20 03:52 BUN/Creatinine Ratio 12.6 (10-20) 06/09/20 03:52 Glucose 182 mg/dl (70-99) H 06/09/20 03:52 Calcium 9.1 mg/dl (8.5-10.1) 06/09/20 03:52 Magnesium 1.9 mg/dl (1.8-2.4) 06/09/20 03:52 Total Bilirubin 0.6 mg/dl (0.2-1) 06/09/20 03:52 AST 18 U/L (15-37) 06/09/20 03:52 ALT 36 U/L (12-78) 06/09/20 03:52 Alkaline Phosphatase 74 U/L (45-117) 06/09/20 03:52 Total Protein 6.9 gm/dl (6.4-8.2) 06/09/20 03:52 Albumin 3.6 gm/dl (3.4-5.0) 06/09/20 03:52 Globulin 3.3 gm/dl (2.5-4.0) 06/09/20 03:52 Albumin/Globulin Ratio 1.1 (0.9-2) 06/09/20 03:52 TSH 8.640 uIu/ml (0.300-4.500) H 06/09/20 03:52 Free T4 0.98 ng/dl (0.8-1.6) 06/09/20 03:52 COVID-19 Eval [facility] 06/09/20 05:31 SARS-CoV-2, RNA, NAAT NEGATIVE (NEGATIVE) 06/09/20 05:31 Diagnostic Findings Chest x-ray as per my interpretation no congestion EKG as per my interpretation : Rate 85, NSR, LAD, LAFB, RBBB, 1 AVB, LVH
[2020-06-09] MEDS ORDERED: GLUCAGON FOR INJ 1 MG VIAL SQ PRN (07:43)
[2020-06-09] MEDS ORDERED: GLUCOSE 10 TABS/TUBE PO PRN (07:43)
[2020-06-09] MEDS ORDERED: MoRPHine SULFATE 4 MG/ML 1 ML CARP\\VIAL IV PRN (07:43)
[2020-06-09] MEDS ORDERED: GLUCOSE 40% GEL 15 GM TUBE PO PRN (07:43)
[2020-06-09] MEDS ORDERED: LORazepam 0.5 MG/1 ML VIAL IV PRN (07:43)
[2020-06-09] MEDS ORDERED: PROMETHAZINE HCL 12.5 MG in SODIUM CHLORIDE 0.9% 50 ML IV PRN (07:43)
[2020-06-09] MEDS ORDERED: DEXTROSE 50% 50 ML SYRINGE IV PRN (07:43)
[2020-06-09] MEDS ORDERED: oxyCODONE HCL IR 5 MG TAB (IMMEDIATE RELEASE) PO PRN (07:43)
[2020-06-09] MEDS ORDERED: CARBOHYDRATES FOR HYPOGLYCEMIA PO PRN (07:43)
--- NOTE | 2020-06-09 07:59 | XRay Report ---
XR chest 1V portable CLINICAL HISTORY: Atypical chest pain and supraventricular tachycardia COMPARISON STUDY: 05/14/2020 FINDINGS: The cardiac and mediastinal contours are normal. There is no evidence of focal pulmonary co nsolidation. There is no evidence of failure. No pleural effusions are visualized.[ IMPRESSION: No active disease in the chest. ACT 112: Negative or not required by law. Electronically signed by: Tamir Hatfield M.D. 06/09/2020 7:57 AM
[2020-06-09] MEDS: INSULIN ASPART 100 UNITS/ML 3 ML PEN SC SCH ×4 (08:32→21:03)
[2020-06-09] MEDS: INSULIN GLARGINE SOLOSTAR 100 UNITS/ML 3 ML PEN SC SCH (08:32)
[2020-06-09] MEDS: TAMSULOSIN HCL 0.4 MG CAP PO SCH (08:33)
[2020-06-09] MEDS: LORATADINE 10 MG TAB PO SCH (08:33)
[2020-06-09] MEDS: LOSARTAN POTASSIUM 50 MG TAB PO SCH (08:33)
[2020-06-09] MEDS: SPIRONOLACTONE 25 MG TAB PO SCH (08:33)
[2020-06-09] MEDS: ASPIRIN 81 MG ECTAB PO SCH (08:34)
[2020-06-09] MEDS: ATORVASTATIN 40 MG TAB PO SCH (08:34)
[2020-06-09] MEDS: ENOXAPARIN INJ 40 MG/0.4 ML SYR SQ SCH (08:34)
[2020-06-09] MEDS: valACYclovir HCL 500 MG TABLET PO SCH (08:34)
[2020-06-09] MEDS: FLUTICASONE PROPIONATE NA SPR 16 GM BTL SCH (08:34)
[2020-06-09] MEDS: hydrALAZINE HCL 25 MG TAB PO SCH ×3 (08:48→20:44)
[2020-06-09] MEDS ORDERED: hydrALAZINE TAB 50 MG TAB PO SCH (09:00)
[2020-06-09] MEDS ORDERED: AMIODARONE / D5W 360 MG/200 ML BAG IV SCH (12:13)
--- NOTE | 2020-06-09 13:10 | Cardiology Consultation ---
Date of Consultation June 09, 2020 Assessment & Plan (1) SVT (supraventricular tachycardia): (2) Syncope: (3) HTN (hypertension): (4) Ascending aorta dilatation: (5) Nonobstructive atherosclerosis of coronary artery: (6) REANNA on CPAP: (7) Hypertension: The pathophysiology and treatment options tachycardia were discussed with great lengths. So far work-up is unremarkable. We will obtain a resting echocardiogram. His beta-blockade has been uptitrated to metoprolol tartrate 50 mg p.o. 3 times daily and will follow his response. Should his arrhythmia persist despite medical therapy consideration may be given to possible ablation with our electrophysiology colleagues. Irina to monitor on telemetry. History of Present Illness Reason for Consultation: Sustained supraventricular tachycardia Requesting Physician: Dr. Goodson Attending Physician: Manjeet Figueroa MD History of Present Illness It was my pleasure to see Mr. Joseph in cardiac consultation today June 09, 2020. He is a very pleasant 74-year-old gentleman who routinely follows with Dr. Andree Chapman of our cardiology practice. He presented to [facility] on 06/09/2020 with complaints of palpitations. He states he woke up in the middle the night with a feeling of acid reflux and a burning sensation in his esophagus. Shortly thereafter he started feeling his heart racing. He states that it felt as though heart was running a race in his chest. He checked his home blood pressure cuff and his heart rate was in the 220s. He became concerned and came to the emergency department. He was also having some associated lightheadedness but no significant syncope as he previously experienced. He also denied any associated chest pain or shortness of breath. Upon arrival to emergency department he was found to be supraventricular tachycardia and received IV Lopressor x2 with improvement of the rate. He was then admitted to telemetry and his oral beta-blockade was uptitrated. Currently states he feels well and that the palpitations have resolved. He denies any previous similar episodes in the past and states that he has been compliant with his outpatient medical regimen Past medical history as per most recent outpatient cardiology note: 1. Palpitations. Sensed atrial and ventricular ectopy. Symptoms significantly improved after switching carvedilol to metoprolol, as detailed above. 2. Conduction system disease, right bundle branch block, left anterior fascicular block, bifascicular block. Possible future need for permanent pacemaker implantation dicussed. 3. Labile hypertension, Hypertensive heart disease. BP acceptably controled at home and on my examination. Nonpharmacologic treatments discussed. Follow. 4. Abnormal exercise nuclear stress testing in 2011, indicative of inferior wall ischemia. Diagnostic cardiac catheterization at [facility] on December 31, 2011 revealed no significant obstructive coronary artery disease. See above. DSE negative in January 2016. Back and hip issues will not allow for ambulatory stress testing. Continue risk factor and life style modification. 5. Enlarged aortic root and ascending aorta. Continue routine surveillance (scheduled to be done on 12/21/2019). 6. Dyslipidemia. LDL 50 mg/dL on 06/15/2019. Continue atorvastatin 40 mg/day. 7. Type 2 diabetes mellitus. Followed by PCP. HgZ1c 6.2% in May 2019. 8. Solitary kidney. Creatinine 0.6 on 06/15/2019 9. Obstructive sleep apnea, CPAP QHS. Allergies Allergy/AdvReac Type Severity Reaction Status Date / Time iodine Allergy Intermediate FULL BODY Verified 06/09/20 04:07 ITCHING shellfish derived Allergy Intermediate FULL BODY Verified 06/09/20 04:07 ITCHING IODINE BETADINE Allergy Intermediate FULL BODY Uncoded 06/09/20 04:07 ITCHING Home Medications Medication Instructions Recorded Confirmed Type Ozempic 1 mg SUBCUT WK 08/13/19 06/09/20 History aspirin 81 mg PO DAILY 08/13/19 06/09/20 History atorvastatin 40 mg PO DAILY 08/13/19 06/09/20 History fluticasone propionate 2 spray INTRANASAL QAM 08/13/19 06/09/20 History glipizide 10 mg PO AMPM 08/13/19 06/09/20 History hydrochlorothiazide 25 mg PO QDL 08/13/19 06/09/20 History losartan 100 mg PO DAILY 08/13/19 06/09/20 History metformin 1,000 mg PO BID 08/13/19 06/09/20 History omega 9-eiy-gyn-fish oil [Fish Oil] 1 cap PO DAILY 08/13/19 06/09/20 History omeprazole 20 mg PO HS 08/13/19 06/09/20 History diclofenac sodium [Voltaren] 2 g TOPICAL TID PRN 05/14/20 06/09/20 History loratadine 10 mg PO DAILY 05/14/20 06/09/20 History metoprolol tartrate 50 mg PO BID 05/14/20 06/09/20 History tamsulosin 0.4 mg PO DAILY 05/14/20 06/09/20 History valacyclovir 500 mg PO DAILY 05/14/20 06/09/20 History hydralazine 50 mg PO TID #90 tab 05/15/20 06/09/20 Rx spironolactone 25 mg PO QAM #30 tab 05/15/20 06/09/20 Rx amoxicillin 500 mg PO TID 06/09/20 06/09/20 History Patient History Medical History Ascending aorta dilatation Diabetes mellitus, type II GERD (gastroesophageal reflux disease) HLD (hyperlipidemia) Hypertension Nonobstructive atherosclerosis of coronary artery REANNA on CPAP Surgical History H/O cardiac catheterization History of partial colectomy History of tonsillectomy S/p nephrectomy Family History Other Colorectal cancer Lung cancer Social History Smoking Status: Never smoker Years Smoked: 30; Second Hand Exposure: No; Hx Alcohol Use: No Hx Substance Use: No Preferred Language: Italian Communication Ability: Effective Aba Tutor Required: No Beliefs That Will Affect Care: None Current Living Situation: Family Feels Safe at Home: Yes Safety Concerns: Feels Safe At This Time Assistive Devices: Hearing Aid - Bilateral Review of Systems Review of Systems: All systems reviewed & are unremarkable except as noted in HPI & below Physical Exam Physical Exam: General: Awake, alert and oriented x 3. No acute distress. HEENT: Normocephalic, atraumatic. Pupils equal, round and reactive to light and accommodation. Extraocular muscles are intact. Anicteric sclera. Moist mucous membranes. Neck: No JVD. No bruit. Cardiovascular: Regular. Positive S-4. Normal S-1 and S-2. No S-3. No murmurs or rubs. Pulmonary: Clear to auscultation B/L. No rales, rhonchi or wheezing Abdomen: Bowel sounds x 4, soft. No rebound, guarding or tenderness. No organomegaly. Extremities: No clubbing, cyanosis or edema. +2 pedal pulses bilaterally. Skin: Warm and dry. Results & Data ([facility]) Vital Signs (Past 12 Hours) Vital Signs Temp Pulse Pulse Resp BP BP Pulse Ox 06/09/20 11:30 36.3 C L 69 18 129/76 96 06/09/20 07:56 36.2 C L 70 20 144/73 H 99 06/09/20 07:15 101 H 20 168/75 H 98 06/09/20 06:00 121 H 16 152/80 H 97 06/09/20 05:58 107 H 19 131/84 96 06/09/20 05:57 143 H 17 125/76 96 06/09/20 05:30 92 H 14 130/74 96 06/09/20 05:28 151 H 128/96 06/09/20 05:22 141 H 19 128/96 97 06/09/20 05:17 77 13 153/90 H 97 06/09/20 05:00 80 15 125/71 96 06/09/20 04:37 81 17 98 06/09/20 04:36 82 25 H 121/80 97 06/09/20 04:30 81 15 118/73 95 06/09/20 04:15 79 20 116/80 06/09/20 04:07 85 126/70 06/09/20 04:00 85 95 06/09/20 03:40 88 141/102 H 98 06/09/20 03:38 36.7 C 82 20 137/83 97 Laboratory Results Laboratory Results - last 24 hr 06/09/20 06/09/20 06/09/20 03:52 03:52 03:52 WBC 8.15 RBC 4.86 Hgb 14.1 Hct 41.7 L MCV 85.8 MCH 29.0 MCHC 33.8 RDW Std Deviation 46.2 RDW Coeff of Kyleigh 14.8 H Plt Count 243 MPV 9.9 Immature Gran % (Auto) 0.1 Neut % (Auto) 64.0 Lymph % (Auto) 20.4 [place] % (Auto) 12.4 Eos % (Auto) 2.6 Baso % (Auto) 0.5 Neut # (Auto) 5.22 Lymph # (Auto) 1.66 [place] # (Auto) 1.01 H Eos # (Auto) 0.21 Baso # (Auto) 0.04 Immature Gran # (Auto) 0.01 APTT 25.2 PTT Ratio 1.0 D-Dimer 260 Sodium 136 Potassium 4.0 Chloride 101 Carbon Dioxide 28 Anion Gap 7.0 BUN 14 Creatinine 1.14 Est Cr Clr Drug Dosing 72.8 Est GFR ( Amer) 73.5 Est GFR (Non-Af Amer) 63.4 BUN/Creatinine Ratio 12.6 Glucose 182 H POC Glucose Calcium 9.1 Magnesium 1.9 Total Bilirubin 0.6 AST 18 ALT 36 Alkaline Phosphatase 74 Troponin I Total Protein 6.9 Albumin 3.6 Globulin 3.3 Albumin/Globulin Ratio 1.1 TSH 8.640 H Free T4 0.98 COVID-19 Eval Order SARS-CoV-2, RNA, NAAT 06/09/20 06/09/20 06/09/20 05:31 05:31 07:53 WBC RBC Hgb Hct MCV MCH MCHC RDW Std Deviation RDW Coeff of Kyleigh Plt Count MPV Immature Gran % (Auto) Neut % (Auto) Lymph % (Auto) [place] % (Auto) Eos % (Auto) Baso % (Auto) Neut # (Auto) Lymph # (Auto) [place] # (Auto) Eos # (Auto) Baso # (Auto) Immature Gran # (Auto) APTT PTT Ratio D-Dimer Sodium Potassium Chloride Carbon Dioxide Anion Gap BUN Creatinine Est Cr Clr Drug Dosing Est GFR ( Amer) Est GFR (Non-Af Amer) BUN/Creatinine Ratio Glucose POC Glucose 136 H Calcium Magnesium Total Bilirubin AST ALT Alkaline Phosphatase Troponin I Total Protein Albumin Globulin Albumin/Globulin Ratio TSH Free T4 COVID-19 Eval Order Covid19 [facility] SARS-CoV-2, RNA, NAAT NEGATIVE 06/09/20 06/09/20 11:22 11:48 WBC RBC Hgb Hct MCV MCH MCHC RDW Std Deviation RDW Coeff of Kyleigh Plt Count MPV Immature Gran % (Auto) Neut % (Auto) Lymph % (Auto) [place] % (Auto) Eos % (Auto) Baso % (Auto) Neut # (Auto) Lymph # (Auto) [place] # (Auto) Eos # (Auto) Baso # (Auto) Immature Gran # (Auto) APTT PTT Ratio D-Dimer Sodium Potassium Chloride Carbon Dioxide Anion Gap BUN Creatinine Est Cr Clr Drug Dosing Est GFR ( Amer) Est GFR (Non-Af Amer) BUN/Creatinine Ratio Glucose POC Glucose 188 H Calcium Magnesium Total Bilirubin AST ALT Alkaline Phosphatase Troponin I 0.239 H* Total Protein Albumin Globulin Albumin/Globulin Ratio TSH Free T4 COVID-19 Eval Order SARS-CoV-2, RNA, NAAT Medications Administered Current Inpatient Medications Amoxicillin (Amoxicillin 500 Mg Cap) 500 mg PO TID NISHA; Protocol Stop: 06/19/20 13:59 Aspirin (Aspirin 81 Mg Ectab) 81 mg PO DAILY [facility] Stop: 07/09/20 08:59 Last Admin: 06/09/20 08:34 Dose: 81 mg Documented by: Atorvastatin Calcium (Atorvastatin 40 Mg Tab) 40 mg PO DAILY [facility] Stop: 07/09/20 08:59 Last Admin: 06/09/20 08:34 Dose: 40 mg Documented by: Dextrose (Dextrose 50% 50 Ml Syringe) 25 - 50 ml IV UD PRN; Protocol PRN Reason: Hypoglycemia Protocol Stop: 07/09/20 07:42 Enoxaparin Sodium (Enoxaparin Inj 40 Mg/0.4 Ml Syr) 40 mg SQ QAM [facility] Stop: 07/09/20 08:59 Last Admin: 06/09/20 08:34 Dose: 40 mg Documented by: Fluticasone Propionate (Fluticasone Propionate Na Spr 16 Gm Btl) 2 sprays NA QAM [facility] Stop: 07/09/20 08:59 Last Admin: 06/09/20 08:34 Dose: 2 sprays Documented by: Glucagon (Glucagon For Inj 1 Mg Vial) 1 mg SQ UD PRN; Protocol PRN Reason: Hypoglycemia Protocol Stop: 07/09/20 07:42 Glucose (Glucose 10 Tabs/Tube) 4 - 8 tabs PO UD PRN; Protocol PRN Reason: Hypoglycemia Protocol Stop: 07/09/20 07:42 Glucose (Glucose 40% Gel 15 Gm Tube) 15 - 30 gm PO UD PRN; Protocol PRN Reason: Hypoglycemia Protocol Stop: 07/09/20 07:42 Hydralazine HCl (Hydralazine Hcl 25 Mg Tab) 25 mg PO TID [facility] Stop: 07/09/20 08:59 Last Admin: 06/09/20 08:48 Dose: Not Given Documented by: Promethazine HCl 12.5 mg/ (Sodium Chloride) 50.5 mls @ 202 mls/hr IV Q6H PRN PRN Reason: Nausea And Vomiting Stop: 07/09/20 07:42 Lorazepam (Ativan) 0.5 mg in 1 mls @ 1 mls/min IV Q4H PRN PRN Reason: Anxiety/Agitation Stop: 07/09/20 07:42 Insulin Aspart (Insulin Aspart 100 Units/Ml 3 Ml Pen) 0 units SC ACHS [facility] Stop: 07/09/20 07:42 Last Admin: 06/09/20 11:52 Dose: 5 units Documented by: Insulin Glargine (Insulin Glargine Solostar 100 Units/Ml 3 Ml Pen) 5 units SC DAILY [facility] Stop: 07/09/20 08:59 Last Admin: 06/09/20 08:32 Dose: 5 units Documented by: Loratadine (Loratadine 10 Mg Tab) 10 mg PO DAILY [facility] Stop: 07/09/20 08:59 Last Admin: 06/09/20 08:33 Dose: 10 mg Documented by: Losartan Potassium (Losartan Potassium 50 Mg Tab) 100 mg PO DAILY [facility] Stop: 07/09/20 08:59 Last Admin: 06/09/20 08:33 Dose: 100 mg Documented by: Metoprolol Tartrate (Metoprolol Tartrate 50 Mg Tab) 50 mg PO TID [facility] Stop: 07/09/20 13:59 Miscellaneous (Carbohydrates For Hypoglycemia ) 15 - 30 gm PO UD PRN PRN Reason: Hypoglycemia Protocol Stop: 07/09/20 07:42 Morphine Sulfate (Morphine Sulfate 4 Mg/Ml 1 Ml Carp\Vial) 4 mg IV Q4H PRN PRN Reason: Pain Stop: 06/23/20 07:42 Oxycodone HCl (Oxycodone Hcl Ir 5 Mg Tab (Immediate Release)) 5 mg PO Q4H PRN PRN Reason: Pain Stop: 06/23/20 07:42 Pantoprazole Sodium (Pantoprazole 40 Mg Tab) 40 mg PO HS [facility] Stop: 07/09/20 20:59 Spironolactone (Spironolactone 25 Mg Tab) 25 mg PO QAM [facility] Stop: 07/09/20 08:59 Last Admin: 06/09/20 08:33 Dose: 25 mg Documented by: Tamsulosin HCl (Tamsulosin Hcl 0.4 Mg Cap) 0.4 mg PO DAILY [facility] Stop: 07/09/20 08:59 Last Admin: 06/09/20 08:33 Dose: 0.4 mg Documented by: Valacyclovir HCl (Valacyclovir Hcl 500 Mg Tablet) 500 mg PO DAILY [facility] Stop: 07/09/20 08:59 Last Admin: 06/09/20 08:34 Dose: 500 mg Documented by: (1) Syncope Syncope type: unspecified Qualified Code(s): R55 - Syncope and collapse (2) HTN (hypertension) Hypertension type: unspecified Qualified Code(s): I10 - Essential (primary) hypertension
--- NOTE | 2020-06-09 13:28 | Hospitalist Progress Note ---
Date of Service June 09, 2020 Assessment & Plan (1) SVT (supraventricular tachycardia): Supraventricular tachycardia Near syncope Electrolytes within normal limits Metoprolol increased to 50mg TID Monitor on Tele Resting ECHO as per Cardiology Appreciate Cardiology Input Mild troponin elevation Likely demand ischemia secondary to above Denies chest pain Resting echo as per cardiology Continue current medications HTN BP Variable Hydralazine decreased to 25 mg 3 times daily recently Continue losartan, metoprolol Also on Aldactone Monitor Hyperlipidemia on Lipitor DM Type II: Will hold oral diabetic meds Last A1c:7.2 on 05/15/20 ISS, basal Insulin, Accu checks, Diabetic diet H/O Nonobstructive CAD/ PVD H/O Aortic root/Ascending aorta dilatation Continue aspirin, statin, metoprolol H/O Recent Dental Abscess On Amoxicillin REANNA on CPAP Abnormal thyroid function test Elevated TSH Normal Free T4 Advised to recheck thyroid function test as outpatient in 4 to 6 weeks DVT Px: Lovenox SQ Code Status Full code Admission and Anticipated Discharge Date Admission Date: June 09, 2020 Subjective Patient is seen and examined at bedside States feeling much better this morning Palpitations, dizziness, heartburn resolved Denies chest pain, dyspnea, nausea, vomiting, abdominal pain Offers no other complaints Review of Systems Review of Systems: All systems reviewed & are unremarkable except as noted in HPI & below Physical Exam Physical Exam: Physical Exam: Vitals signs as noted above General Appearance:Obese, no apparent distress Head: normocephalic, Atraumatic Eyes: normal inspection, EOMI Neck: supple, Trachea midline Respiratory/Chest: Normal breath sounds, CTA Cardiovascular: S1, S2, No murmur Abdomen/GI:Soft, Non tender, Bowel sounds present Extremities/Musculoskelatal:normal inspection, no edema Neurologic/Psych:AAOX3, grossly no focal neurological deficits Skin: normal color, warm Results & Data Results & Data ([facility]) Vital Signs (Past 12 Hours) Vital Signs Temp Pulse Pulse Resp BP BP Pulse Ox 06/09/20 11:30 36.3 C L 69 18 129/76 96 06/09/20 07:56 36.2 C L 70 20 144/73 H 99 06/09/20 07:15 101 H 20 168/75 H 98 06/09/20 06:00 121 H 16 152/80 H 97 06/09/20 05:58 107 H 19 131/84 96 06/09/20 05:57 143 H 17 125/76 96 06/09/20 05:30 92 H 14 130/74 96 06/09/20 05:28 151 H 128/96 06/09/20 05:22 141 H 19 128/96 97 06/09/20 05:17 77 13 153/90 H 97 06/09/20 05:00 80 15 125/71 96 06/09/20 04:37 81 17 98 06/09/20 04:36 82 25 H 121/80 97 06/09/20 04:30 81 15 118/73 95 06/09/20 04:15 79 20 116/80 06/09/20 04:07 85 126/70 06/09/20 04:00 85 95 06/09/20 03:40 88 141/102 H 98 06/09/20 03:38 36.7 C 82 20 137/83 97 Laboratory Results Short CBC 06/09/20 Range/Units 03:52 WBC 8.15 (4.8-10.8) K/uL Hgb 14.1 (14.0-18.0) g/dL Hct 41.7 L (42-52) % Plt Count 243 (130-400) K/uL BMP 06/09/20 03:52 Sodium 136 Potassium 4.0 Chloride 101 Carbon Dioxide 28 BUN 14 Creatinine 1.14 Glucose 182 H Calcium 9.1 Cardiac Enzymes 06/09/20 Range/Units 11:48 Troponin I 0.239 H* (0-0.045) ng/ml Liver Function 06/09/20 Range/Units 03:52 Total Bilirubin 0.6 (0.2-1) mg/dl AST 18 (15-37) U/L ALT 36 (12-78) U/L Alkaline Phosphatase 74 (45-117) U/L Albumin 3.6 (3.4-5.0) gm/dl
[2020-06-09] MEDS: AMOXICILLIN 500 MG CAP PO SCH ×2 (13:50→20:44)
[2020-06-09] MEDS: METOPROLOL TARTRATE 50 MG TAB PO SCH ×2 (13:50→20:44)
[2020-06-09] MEDS ORDERED: PANTOprazole 40 MG TAB PO SCH (21:00)
[2020-06-10 06:15] LABS: Basophils # (auto) 0.03 K/uL (0-0.2); Basophils % (auto) 0.4 %; Eosinophils % (auto) 3.8 %; Hematocrit (blood only) 39.9 % (42-52); Hemoglobin 13.4 g/dL (14.0-18.0); Immature Granulocytes # (auto) 0.02 K/uL (0.00-0.02); Immature Granulocytes % (auto) 0.3 %; Lymphocytes # (auto) 2.03 K/uL (1.2-3.4); Lymphocytes % (auto) 25.5 %; Mean Corpuscular Hemoglobin 28.3 pg (25-34); Mean Corpuscular Hgb Conc 33.6 g/dL (32-36); Mean Corpuscular Volume 84.4 fL (80-100); Mean Platelet Volume 9.8 fL (7.4-10.4); Monocytes # (auto) 1.01 K/uL (0.11-0.59); Monocytes % (auto) 12.7 %; Neutrophils # (auto) 4.58 K/uL (1.4-6.5); Neutrophils % (auto) 57.3 %; Platelet Count 237 K/uL (130-400); RDW Coefficient of Variation 14.7 % (11.5-14.5); RDW Standard Deviation 45.6 fL (36.4-46.3); Red Blood Count 4.73 M/uL (4.7-6.1); White Blood Count 7.97 K/uL (4.8-10.8)
--- NOTE | 2020-06-10 06:21 | Electrocardiogram Report ---
Test Reason : Blood Pressure : / mmHG Vent. Rate : 085 BPM Atrial Rate : 085 BPM P-R Int : 220 ms QRS Dur : 166 ms QT Int : 426 ms P-R-T Axes : 059 -66 054 degrees QTc Int : 506 ms Sinus rhythm with 1st degree A-V block Right bundle branch block Left anterior fascicular block Bifascicular block Moderate voltage criteria for LVH, may be normal variant Cannot rule out Septal infarct , age undetermined Abnormal ECG When compared with ECG of 15-MAY-2020 07:14, T wave inversion no longer evident in Inferior leads T wave amplitude has increased in Anterolateral leads Confirmed by Sixto Thomason ([id number]) on 06/10/2020 6:21:04 AM Referred By: REFERRED SELF Confirmed By:Sixto Thomason
[2020-06-10 06:59] LABS: BUN Creatinine Ratio 15.4 (10-20); Calcium 8.6 mg/dl (8.5-10.1); Creatinine Clr Calc Pharmacy 106.3 ml/min; Est GFR (African American) 103.8; Est GFR (Non-African American) 89.6; Magnesium 2.2 mg/dl (1.8-2.4); Potassium 3.9 mmol/L (3.5-5.1)
[2020-06-10] MEDS: AMOXICILLIN 500 MG CAP PO SCH ×2 (07:42→13:55)
[2020-06-10] MEDS: LOSARTAN POTASSIUM 50 MG TAB PO SCH (07:43)
[2020-06-10] MEDS: hydrALAZINE HCL 25 MG TAB PO SCH ×2 (07:43→13:57)
[2020-06-10] MEDS: valACYclovir HCL 500 MG TABLET PO SCH (07:45)
[2020-06-10] MEDS: LORATADINE 10 MG TAB PO SCH (07:46)
[2020-06-10] MEDS: SPIRONOLACTONE 25 MG TAB PO SCH (07:46)
[2020-06-10] MEDS: METOPROLOL TARTRATE 50 MG TAB PO SCH ×2 (07:47→13:58)
[2020-06-10] MEDS: ATORVASTATIN 40 MG TAB PO SCH (07:47)
[2020-06-10] MEDS: FLUTICASONE PROPIONATE NA SPR 16 GM BTL SCH (07:47)
[2020-06-10] MEDS: ENOXAPARIN INJ 40 MG/0.4 ML SYR SQ SCH (07:48)
[2020-06-10] MEDS: TAMSULOSIN HCL 0.4 MG CAP PO SCH (07:50)
[2020-06-10] MEDS ORDERED: ACETAMINOPHEN 325 MG TAB PO PRN (07:55)
[2020-06-10] MEDS: INSULIN ASPART 100 UNITS/ML 3 ML PEN SC SCH ×2 (07:57→11:54)
[2020-06-10] MEDS: INSULIN GLARGINE SOLOSTAR 100 UNITS/ML 3 ML PEN SC SCH (08:02)
[2020-06-10] MEDS: ASPIRIN 81 MG ECTAB PO SCH (10:05)
--- NOTE | 2020-06-10 13:03 | Hospitalist Progress Note ---
Date of Service June 10, 2020 Assessment & Plan (1) SVT (supraventricular tachycardia): Supraventricular tachycardia Near syncope Electrolytes within normal limits -ECHO: Mild concentric LVH. Left ventricle wall motion is normal. Left ventricle systolic function is normal. EF 55 to 60%. Mild mitral regurgitation. Grade 1 diastolic dysfunction. Aortic root size is normal. The proximal ascending aorta is mildly dilated with diameter of 3.9 cm. Doppler findings do not suggest pulmonary hypertension. Metoprolol increased to 50mg TID>>> transition to metoprolol succinate 100 mg BID Monitor on Tele Appreciate Cardiology Input Needs follow-up with cardiology upon discharge Mild troponin elevation Likely demand ischemia secondary to above Denies chest pain ECHO showed no wall motion abnormality Continue current medications HTN BP Variable Hydralazine decreased to 25 mg 3 times daily recently Continue losartan, metoprolol Also on Aldactone Monitor Hyperlipidemia on Lipitor DM Type II: Will hold oral diabetic meds Last A1c:7.2 on 05/15/20 ISS, basal Insulin, Accu checks, Diabetic diet H/O Nonobstructive CAD/ PVD H/O Aortic root/Ascending aorta dilatation Continue aspirin, statin, metoprolol H/O Recent Dental Abscess On Amoxicillin REANNA on CPAP Abnormal thyroid function test Elevated TSH Normal Free T4 Advised to recheck thyroid function test as outpatient in 4 to 6 weeks DVT Px: Lovenox SQ Code Status Full code Admission and Anticipated Discharge Date Admission Date: June 09, 2020 Subjective Patient is seen and examined at bedside Doing well today Palliations resolved Denies chest pain, dyspnea, dizziness, nausea, vomiting, abdominal pain Offers no other complaints Discussed with Cardiology today Review of Systems Review of Systems: All systems reviewed & are unremarkable except as noted in HPI & below Physical Exam Physical Exam: Physical Exam: Vitals signs as noted above General Appearance:Obese, no apparent distress Head: normocephalic, Atraumatic Eyes: normal inspection, EOMI Neck: supple, Trachea midline Respiratory/Chest: Normal breath sounds, CTA Cardiovascular: S1, S2, No murmur Abdomen/GI:Soft, Non tender, Bowel sounds present Extremities/Musculoskelatal:normal inspection, no edema Neurologic/Psych:AAOX3, grossly no focal neurological deficits Skin: normal color, warm Results & Data Results & Data ([facility]) Vital Signs (Past 12 Hours) Vital Signs Temp Pulse Resp BP Pulse Ox 06/10/20 11:49 36.6 C 73 18 166/89 H 95 06/10/20 07:17 36.9 C 70 18 167/92 H 92 06/10/20 03:56 36.6 C 67 18 143/80 H 95 Laboratory Results Short CBC 06/10/20 Range/Units 05:38 WBC 7.97 (4.8-10.8) K/uL Hgb 13.4 L (14.0-18.0) g/dL Hct 39.9 L (42-52) % Plt Count 237 (130-400) K/uL BMP 06/10/20 05:38 Sodium 137 Potassium 3.9 Chloride 104 Carbon Dioxide 27 BUN 12 Creatinine 0.78 D Glucose 163 H Calcium 8.6
[2020-06-10] MEDS ORDERED: METOPROLOL TARTRATE 25 MG TAB PO PRN (13:53)
--- NOTE | 2020-06-10 13:57 | Cardiology Progress Note ---
Date of Service June 10, 2020 Assessment & Plan (1) SVT (supraventricular tachycardia): (2) Syncope: (3) HTN (hypertension): (4) Ascending aorta dilatation: (5) Nonobstructive atherosclerosis of coronary artery: (6) REANNA on CPAP: His SVT is significantly improved with up titration of his beta-lopez dose. At this point I believe the most prudent course of action will be to change him to metoprolol succinate 100 mg p.o. twice daily along with metoprolol tartrate 25 mg p.o. every 6 hours as needed for palpitations. Once again the pathophysiology and treatment options were discussed with him in regards to supraventricular tachycardia and he agrees with the above plan. His other outpatient medications will be continued. Okay to discharge from a cardiac standpoint. We will arrange outpatient follow-up later this week. Admission and Anticipated Discharge Date Admission Date: June 09, 2020 Subjective Patient seen and examined, chart reviewed. No complaints overnight and did not experience any palpitations during his episode of paroxysmal supraventricular tachycardia this a.m. Denies chest pain, shortness of breath, lightheadedness or dizziness. Overall he states he feels well and pre much back to normal. Telemetry reviewed: Normal sinus rhythm with an episode of supraventricular tachycardia earlier this a.m. Review of Systems Review of Systems: All systems reviewed & are unremarkable except as noted in HPI & below Physical Exam Physical Exam: General: Awake, alert and oriented x 3. No acute distress. HEENT: Normocephalic, atraumatic. Pupils equal, round and reactive to light and accommodation. Extraocular muscles are intact. Anicteric sclera. Moist mucous membranes. Neck: No JVD. No bruit. Cardiovascular: Regular. Positive S-4. Normal S-1 and S-2. No S-3. No murmurs or rubs. Pulmonary: Clear to auscultation B/L. No rales, rhonchi or wheezing Abdomen: Bowel sounds x 4, soft. No rebound, guarding or tenderness. No organomegaly. Extremities: No clubbing, cyanosis or edema. +2 pedal pulses bilaterally. Skin: Warm and dry. Results & Data ([facility]) Vital Signs (Past 12 Hours) Vital Signs Temp Pulse Resp BP Pulse Ox 06/10/20 11:49 36.6 C 73 18 166/89 H 95 02/14/21 07:17 36.9 C 70 18 167/92 H 92 06/10/20 03:56 36.6 C 67 18 143/80 H 95 (1) Syncope Syncope type: unspecified Qualified Code(s): R55 - Syncope and collapse (2) HTN (hypertension) Hypertension type: unspecified Qualified Code(s): I10 - Essential (primary) hypertension
--- NOTE | 2020-06-10 14:31 | Discharge Summary ---
Date of Service June 10, 2020 Admission HPI Per Admitting Provider History obtained from patient and records. Medical history significant for hypertension, hyperlipidemia, nonobstructive CAD, PVD (aortic root/ascending aorta dilatation), DM2 on oral medications, chronic anemia (baseline hemoglobin 12-13), REANNA on CPAP, past tobacco abuse. Recent confinement 3 weeks ago for syncope, hypertensive urgency. 2D echo showed mild concentric LVH, EF 55 to 60%, grade 1 diastolic dysfunction. Mild mitral regurgitation. Proximal ascending aorta mildly dilated with diameter of 3.9 cm. Negative orthostatics, no arrhythmias noted on telemetry as per documentation. Hydralazine dose adjusted on discharge Patient discharged on spironolactone. No recurrence of syncope at home. Better BP control as per documentation. Last week, patient noted intermittent near syncopal events at home not related to exertion. No chest pain, no S OB, no palpitations. Good BP control as per documentation. 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 Infection Control Nurse recommended outpatient neurology eval for possible seizure events. Hydralazine dose decreased from 50 mg 3 times daily to 25 mg 3 times daily. Patient roused from sleep early this morning by chest tightness, palpitations, dizziness, nausea and sensation that he is going to pass out. No cough, no unusual shortness of breath. At the ER, patient given intermittent doses of metoprolol administered for PSVT. 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 Admission Exam Per Admitting Provider Physical Exam Physical Exam: GENERAL: Comfortable, slightly anxious, pleasant, obese, looks younger for stated age, no respiratory distress SKIN: Pallor , warm HEENT: Alopecia, pale palpebral conjunctivae, no ptosis, dry buccal mucosa NECK : Supple, no tenderness CHEST : CTA, no tenderness HEART : Tachycardic, no obvious murmurs ABDOMEN: Some distention, nontender EXTREMITIES : No LE swelling/tenderness, no other conspicuous deformities noted NEUROLOGIC : Coherent, no facial asymmetry, no other gross focality Principal Diagnosis Supraventricular Tachycardia Near syncope Hypertension Discharge Data Allergies Allergy/AdvReac Type Severity Reaction Status Date / Time iodine Allergy Intermediate FULL BODY Verified 06/09/20 04:07 ITCHING shellfish derived Allergy Intermediate FULL BODY Verified 06/09/20 04:07 ITCHING IODINE BETADINE Allergy Intermediate FULL BODY Uncoded 06/09/20 04:07 ITCHING Consultations 06/09/20 05:07 ED Decision to Admit Stat 06/09/20 07:43 Consult Cardiology Routine 06/09/20 08:47 Consult Case Management - Discharge Planning Routine Procedures Performed ECHO: Mild concentric LVH. Left ventricle wall motion is normal. Left ventricle systolic function is normal. EF 55 to 60%. Mild mitral regurgitat ion. Grade 1 diastolic dysfunction. Aortic root size is normal. The proximal ascending aorta is mildly dilated with diameter of 3.9 cm. Doppler findings do not suggest pulmonary hypertension. Hospital Course (1) SVT (supraventricular tachycardia): Supraventricular tachycardia Near syncope Electrolytes within normal limits -ECHO: Mild concentric LVH. Left ventricle wall motion is normal. Left ventricle systolic function is normal. EF 55 to 60%. Mild mitral regurgitation. Grade 1 diastolic dysfunction. Aortic root size is normal. The proximal ascending aorta is mildly dilated with diameter of 3.9 cm. Doppler findings do not suggest pulmonary hypertension. Metoprolol increased to 50mg TID>>> transition to metoprolol succinate 100 mg BID Monitor on Tele Appreciate Cardiology Input Needs follow-up with cardiology upon discharge Mild troponin elevation Likely demand ischemia secondary to above Denies chest pain ECHO showed no wall motion abnormality Continue current medications HTN BP Variable Hydralazine decreased to 25 mg 3 times daily recently Continue losartan, metoprolol Also on Aldactone Monitor Hyperlipidemia on Lipitor DM Type II: Will hold oral diabetic meds Last A1c:7.2 on 05/15/20 ISS, basal Insulin, Accu checks, Diabetic diet H/O Nonobstructive CAD/ PVD H/O Aortic root/Ascending aorta dilatation Continue aspirin, statin, metoprolol H/O Recent Dental Abscess On Amoxicillin REANNA on CPAP Abnormal thyroid function test Elevated TSH Normal Free T4 Advised to recheck thyroid function test as outpatient in 4 to 6 weeks DVT Px: Lovenox SQ Code Status Full code Total Time Total Time Spent Total Time Spent (In Minutes): 40 minutes Total Time Includes: Examination of the Patient, Discharge Planning, Medication Reconciliation, Communication With Other Providers and Other Discharge Plan Discharge Items Patient Disposition: Home - Self-Care Reason For Visit: SVT Discharge Diagnosis: Supraventricular Tachycardia Near syncope Hypertension Activity: Per Instructions section Exercise/Sports: Gradually increase as tolerated Non-emergency contact: Primary Care Provider and Infection Control Nurse Call non-emergency contact if: you have any medication questions, your symptoms worsen, your pain is worsening, your pain is unusual for you, your pain is concerning for you and you have a fever Follow-up/Referrals: Jimmie Lewis DO [Physician] - (Dr. Lewis's office will call with appointment.) Humberto Reyes MD [Primary Care Provider] - 06/13/20 9:40 am (Please follow up with Dr. Reyes on Thursday06/13/20 at 9:40 am. Please arrive to the office at 9:25 am for your appointment. If you are unable to keep this appointment, please call the office to reschedule at [phone].) Diet: Carb Consistent or DM2 and Heart Healthy Addtl Attending Provider Instructions: Follow-up with your primary care physician Dr. Reyes in 1 week as advised Follow-up with your mysql database developer Dr. Lewis as per recommendations by your mysql database developer Get repeat thyroid function test (TSH, free T4) in 4 to 6 weeks and follow-up with your primary care physician for further recommendations. Seek immediate medical attention if your symptoms reoccur or worsen Pending Studies at Discharge: No Stand-Alone Forms: My [employer], Smoking Cessation Medications and DC Order Prescriptions: New metoprolol succinate 50 mg Tablet Extended Release 24 Hr 100 mg PO BID Qty: 60 RF: 0 hydralazine 25 mg Tablet 25 mg PO TID Qty: 90 RF: 0 metoprolol tartrate 25 mg Tablet 25 mg PO Q6H PRN (Reason: palpitations) Qty: 60 RF: 0 Continued diclofenac sodium [Voltaren] 1 % Gel 2 g TOPICAL TID PRN (Reason: Pain) RF: 0 loratadine 10 mg Tablet 10 mg PO DAILY RF: 0 tamsulosin 0.4 mg capsule 0.4 mg PO DAILY RF: 0 valacyclovir 500 mg tablet 500 mg PO DAILY RF: 0 spironolactone 25 mg Tablet 25 mg PO QAM Qty: 30 RF: 0 glipizide 5 mg tablet 10 mg PO AMPM RF: 0 atorvastatin 40 mg tablet 40 mg PO DAILY RF: 0 hydrochlorothiazide 25 mg tablet 25 mg PO QDL RF: 0 metformin 1,000 mg tablet 1,000 mg PO BID RF: 0 losartan 100 mg tablet 100 mg PO DAILY RF: 0 aspirin 81 mg Tablet,Delayed Release (Dr/Ec) 81 mg PO DAILY RF: 0 omeprazole 20 mg capsule,delayed release(DR/EC) 20 mg PO HS RF: 0 omega [id number] oil [Fish Oil] 360-1,200 mg Capsule,Delayed Release(Dr/Ec) 1 cap PO DAILY RF: 0 fluticasone propionate 50 mcg/actuation spray,suspension 2 spray INTRANASAL QAM RF: 0 Ozempic 1 mg/dose (2 mg/1.5 mL) pen injector 1 mg SUBCUT WK RF: 0 amoxicillin 500 mg PO TID RF: 0 Discontinued metoprolol tartrate 50 mg tablet 50 mg PO BID RF: 0 hydralazine 50 mg Tablet 50 mg PO TID Qty: 90 RF: 0 Discharge Orders: Discharge Order (Routine); Ordered 06/10/20 Ordered By: Manjeet Figueroa Admission Data Admit Date/Time: 06/09/20 06:33 Attending Provider: Manjeet Figueroa Admit Provider: Manjeet Figueroa Primary Care Provider: Humberto Reyes Other Providers: Fernando Watson ; Jimmie Lewis ; Juan Miguel Mcnair ; Pramod Brown ; Kirt Garcia ; Bennie Salamanca ; Samson Chapman ; Angelica Grady ; Allison Mireles ; Shashank Garduno Other Interventions: Discharge Summary Assessment (RN) Last Done: 06/10/20 15:07
--- NOTE | 2020-06-10 16:09 | Communication Note ---
Date of Service: June 10, 2020 CODE 44: By CMS guidelines, a determination that the admission or continued stay is not medically necessary has been made by a member of the Utilization Review committee and a physician for this hospital stay. Therefore, a Code 44 will be completed and the inpatient admission will be changed to outpatient. Tammy Lauren DO, [facility]ist and [employer] Comittee Member.
[2020-06-10] MEDS ORDERED: METOPROLOL TARTRATE 25 MG TAB PO SCH (16:15)
[2020-06-10] MEDS ORDERED: METOPROLOL SUCC 50MG EXT REL TAB PO SCH ×2 (16:15→21:00)
[2020-06-10] MEDS ORDERED: hydrALAZINE HCL 25 MG TAB PO SCH (16:15)
[2020-06-10] MEDS ORDERED: Nursing to Pharmacy Communication SCH (16:15)
== END 2020-06-10 16:44 | disposition home or self-care (01) ==
LOC: ED 03:32 → INTOOBSV 06:33 → 2S 06:33

== ENCOUNTER 2020-06-11 23:18 | Inpatient (IN) ==
[2020-06-11] MEDS ORDERED: METOPROLOL TARTRATE 1 MG/ML VIAL IV ONE (23:23)
[2020-06-11] MEDS ORDERED: AMIODARONE 360MG / 200ML D5W IV ONE (23:23)
[2020-06-11] MEDS ORDERED: AMIODARONE 150MG / 100ML D5W IV ONE (23:23)
[2020-06-11] MEDS ORDERED: MAGNESIUM SULFATE / D5W 1 GM/100 ML BAG IV STA (23:28)
[2020-06-11] MEDS ORDERED: 0.2 MICRON FILTER SET 1 EA IV ONE ×2 (23:28→23:39)
[2020-06-11] MEDS ORDERED: AMIODARONE / D5W 150 MG/100 ML BAG IV STA ×2 (23:28→23:39)
[2020-06-11] MEDS ORDERED: MAGNESIUM SULFATE 1GM / D5W BAG IV ONE (23:28)
[2020-06-11] MEDS ORDERED: AMIODARONE IV BOLUS & DRIP IV STA (23:39)
[2020-06-11] MEDS ORDERED: STAT IV Infusion **Titration per Protocol STA ×2 (23:39→23:48)
[2020-06-11] MEDS ORDERED: AMIODARONE / D5W 360 MG/200 ML BAG IV ONE (23:39)
--- NOTE | 2020-06-11 23:39 | Emergency Department Note ---
Impression & Plan Wide-complex tachycardia, Acute hypotension, Syncope and collapse, Laceration of right hand ED Provider Note Name: NILAY BLACK Age: 74 Sex: M Arrives Via: Ambulance Informant: Patient, EMS ED Provider: Devin Caban MD Chief Complaint: Syncope Impression: Wide-Complex Tachycardia Acute Hypotension Syncope and Collapse Right hand Laceration Medical Decision Makin yr old male with history SVT, HTN, DMII, CAD, REANNA, HLD, GERD arrives after multiple syncopal events at home. Was just discharged yesterday following 24 hours in hospital for similar tachycardia and syncope and discharged on Lopressor. EMS called after multiple syncopal events and patient found to be in tachycardia. EMS had given Adenosine which broke this for brief amount of time before flipping back to tachycardia. Previous review appears this is felt to be SVT. Arrives in tachycardia, regular, with wide complex. Tired appearing with borderline low BPs. Periodically flipped to NSR with bifasicular block similar to previous EKGs in system. With NSR he feels much better, though with tachy he looks quite tired though relatively comfortable. No chest pain at all with this. Given Lopressor 5mg IV, Amio 150mg Bolus+gtt, Mag 1gm IV, and NSS Bolus 2 Ls (dehydrated on exam). NSR breaks seem to be lasting a bit longer but when flipping to tachy BPs dropping. Started small dose neosynephrine and given another 150mg IV bolus amio. Shortly there-after broke to NSR without further tachycardia and patient feeling well. Of notes, labs appear OK, does not seem consistent with PE/Dissection, and he has had no chest pain with this. Suspect trop will go up, but will hold on anticoagulation for now. He also had syncope and is unsure if he hit his head, however there is no thong on head, he had no headache/neck pain, and given critical nature of arrhythmia held off on CT at this time. Right hand laceration was repaired by Triston Jenkins PA-C with good closure. Tetanus was reported updated within last 10 yrs. While previously this has been felt to be SVT, it is quite unusually how rapidly it flips back and forth and I wouldn't rule out this being Vtach either. Then again it apparently seemed to break with adenosine for EMS, though possibly this was just happenstance as it was about to revert anyways. Regardless, given his hypotension, multiple syncopal events, and degree of tachycardia, in patient with extensive cardiac risk factors, will need to come in for further evaluation and management. No evidence of infectious etiology at this time and patient feels quite well now that in NSR. Prior Medical Record and Triage/Nursing Notes reviewed by Me Additional history obtained from chart Differentials:Premature contractions, electrolyte abnormality, cardiac dysrhythmia, thyroid dysfunction, pulmonary embolism, infection, gastrointestinal, as well as other pathologies. Vital Signs: reviewed and remarkable for Tachycardia Interventions: Amio 150mg IV x 2, Amio gtt, Mag 1gm IV, Lopressor 5mg IV, NSS bolus 2 L IV, Phenylephrine gtt Labs:Reviewed and remarkable for increasing TSH (though T4 stable) Imaging:X ray results are stated below per my interpretation: Chest: 1 view: No infiltrate, no effusion, normal cardiac border. Right hand: no fracture/dislocation, moderate arthritic findings EKG #1:Per My Interpretation: Indication Tachcyardia: SVT vs Vtach 179 bpm, qtc 486, underlying morphology appears similar to bifascicular block to EKG from a few days ago. Compared to EKG 06/09/20 he is now tachycardic. EKG #2: Per My Interpretation: Indication Rhythm Change: Sinus with Bifascicular block 91 bpm, 474 qtc. PVC noted. There are anter ST depression. Compared to EKG earlier on 06/11/20 rate is much lower Cardiac/Tele Monitoring: Cardiac Monitoring: An Order was placed for continuous cardiac monitoring. The monitor shows a rate of 170 with a svt/vtach rhythm. Consults: Dr Salamanca - Repeat Amio if continued and agrees with starting Levar if no chest pain and low pressures Dr Waletr Benjamin hospitalist down to evaluate Plan: Disposition:Hospitalization. Condition: Good History of Present Illness:74 yr old male arrives for evaluation of syncope. Patient notes he has been having episodes of tachycardia, resulting in ED visit and hospitalization 3 days ago for which he was put on Lopressor. Today at home he noted going in and out tachycardia. He has passed out 5 times today with standing. Associated with mild shortness of breath, weakness, fatigue. Admits he fell to floor several times and may have hit his head. He also lacerated right hand. He Denies headache, neck pain, chest pain, nausea, vomiting, fevers, chills, rashes, leg swelling nor other symptoms. Previous hearth cath and denies stenting. Denies previous cardioversion. Follows with [facility]. Exertion makes this worse, laying back and flat makes better. EMS gave adenosine x 2, nss bolus en route and patient has been flipping in and out of SVT and wide complex nsr. ROS: See above HPI for pertinent positives & negatives. A total of 10 systems reviewed and were otherwise negative. Past Medical History:SVT, HTN, DMII, CAD, REANNA, HLD, GERD Past Surgical History:Extensive ortho, colon resection, nephrectomy, tonsillectomy Family History:Lung and Colorectal ca Social History:Non smoker, Retired, Home Medications:See Below Allergies:iodine Vitals:Blood Pressure: 100/60, Pulse 154, RR 16, T 36.8C, O2 98% on RA Physical Exam: GENERAL: Patient is tired appearing and in minimal distress. Does appear dehydrated as well. EYES: No scleral icterus, unremarkable pupils. ENT: Mucous membranes dry, no nasal congestion. NECK: No masses appreciated, nomeningismus, trachea is midline. RESPIRATORY: No dyspnea. Clear to auscultation and equal bilaterally. No wheeze, no rhonchi. CARDIOVASCULAR: tachy.No murmurs, rubs, gallops appreciated. GASTROINTESTINAL: Abdomen soft, non-tender, no peritonitis.Bowel sounds positive.No masses appreciated. BACK: No midline tenderness, no CVA tenderness EXTREMITIES: Normal motion all extremities, no cyanosis, no edema. Pulses intact all 4, week with tachycardia NEUROLOGIC: Alert and oriented, no acute motor or sensory deficits, no focal weakness, cranial nerves grossly intact. SKIN: No rash, no jaundice, no diaphoresis. PSYCH: Appropriate GCS: 15 ED Course: Times/Reassessments: Many re-evals and prolonged bedside management of this critically ill patient Critical Care: I have personally spent 45 minutes of critical care time in the direct management of this patient. Wide complex tachycardia with hypotension and syncope. This was a life/limb threatening event. This 45 minutes is in excess of all separately billable procedures. Devin Caban MD Past Med/Surg History Medical History Ascending aorta dilatation Diabetes mellitus, type II GERD (gastroesophageal reflux disease) HLD (hyperlipidemia) Hypertension Nonobstructive atherosclerosis of coronary artery REANNA on CPAP Surgical History H/O cardiac catheterization History of partial colectomy History of tonsillectomy S/p nephrectomy Family History Other Colorectal cancer Lung cancer Social History Smoking Status: Former smoker Tobacco Type: Cigarettes Years Smoked: 30; Second Hand Exposure: No; Hx Alcohol Use: No Hx Substance Use: No Preferred Language: Albanian Communication Ability: Effective Storehouse 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 Required: No Beliefs That Will Affect Care: None Current Living Situation: Family Feels Safe at Home: Yes Assistive Devices: Hearing Aid - Left Allergies Allergies Allergy/AdvReac Type Severity Reaction Status Date / Time iodine Allergy Intermediate FULL BODY Verified 06/11/20 23:37 ITCHING shellfish derived Allergy Intermediate FULL BODY Verified 06/11/20 23:37 ITCHING IODINE BETADINE Allergy Intermediate FULL BODY Uncoded 06/11/20 23:37 ITCHING Home Meds Home Medications Medication Instructions Recorded Confirmed Ozempic 1 mg SUBCUT WK 08/13/19 06/11/20 aspirin 81 mg PO DAILY 08/13/19 06/11/20 atorvastatin 40 mg PO DAILY 08/13/19 06/11/20 fluticasone propionate 2 spray INTRANASAL QAM 08/13/19 06/11/20 glipizide 10 mg PO AMPM 08/13/19 06/11/20 hydrochlorothiazide 25 mg PO QDL 08/13/19 06/11/20 losartan 100 mg PO DAILY 08/13/19 06/11/20 metformin 1,000 mg PO BID 08/13/19 06/11/20 omega 4-qkc-wza-fish oil [Fish Oil] 1 cap PO DAILY 08/13/19 06/11/20 omeprazole 20 mg PO HS 08/13/19 06/11/20 diclofenac sodium [Voltaren] 2 g TOPICAL TID PRN 05/14/20 06/11/20 loratadine 10 mg PO DAILY 05/14/20 06/11/20 tamsulosin 0.4 mg PO DAILY 05/14/20 06/11/20 valacyclovir 500 mg PO DAILY 05/14/20 06/11/20 amoxicillin 500 mg PO TID 06/09/20 06/11/20 Previous Rx's Medication Instructions Recorded spironolactone 25 mg PO QAM #30 tab 05/15/20 hydralazine 25 mg PO TID #90 tab 06/10/20 metoprolol succinate 100 mg PO BID #60 tab 06/10/20 metoprolol tartrate 25 mg PO Q6H PRN #60 tab 06/10/20 Results & Data (ED) Vital Signs Vital Signs - 24 hr 06/11/20 23:35 06/11/20 23:40 06/12/20 00:10 Temperature 36.8 C Temperature Source Oral Pulse Rate 160 H 154 H Pulse Rate [Right Finger] 76 Respiratory Rate 16 18 Respiratory Effort / Characteristics Non-Labored Respiratory Depth Normal Normal Respiratory Pattern Regular Blood Pressure 100/60 Blood Pressure [Right Arm] 149/85 H Blood Pressure Mean 73 Blood Pressure Mean [Right Arm] 106 Blood Pressure Position Lying Blood Pressure Position [Right Arm] Lying Pulse Oximetry 98 100 Oxygen Delivery Method Room Air Oxymask Oxygen Flow Rate 7 Sepsis Recent Fever Within 48 Hours No Sepsis New/Unexplained Change in Mental Status No Sepsis Action Taken by Nursing No Action Required 06/12/20 01:21 Temperature Temperature Source Pulse Rate Pulse Rate [Right Finger] 69 Respiratory Rate 16 Respiratory Effort / Characteristics Respiratory Depth Normal Respiratory Pattern Blood Pressure Blood Pressure [Right Arm] 150/93 H Blood Pressure Mean Blood Pressure Mean [Right Arm] 112 Blood Pressure Position Blood Pressure Position [Right Arm] Lying Pulse Oximetry 97 Oxygen Delivery Method Room Air Oxygen Flow Rate Sepsis Recent Fever Within 48 Hours Sepsis New/Unexplained Change in Mental Status Sepsis Action Taken by Nursing Laboratory Data Result diagrams: 06/11/20 23:20 06/11/20 23:20 Lab Results 06/11/20 06/11/20 06/11/20 Range/Units 23:20 23:20 23:20 WBC 9.03 (4.8-10.8) K/uL RBC 4.78 (4.7-6.1) M/uL Hgb 13.5 L (14.0-18.0) g/dL Hct 40.4 L (42-52) % MCV 84.5 (80-100) fL MCH 28.2 (25-34) pg MCHC 33.4 (32-36) g/dL RDW Std Deviation 46.0 (36.4-46.3) fL RDW Coeff of Kyleigh 14.9 H (11.5-14.5) % Plt Count 239 (130-400) K/uL MPV 9.9 (7.4-10.4) fL Immature Gran % (Auto) 0.2 % Neut % (Auto) 49.4 % Lymph % (Auto) 31.3 % Meagher % (Auto) 15.9 % Eos % (Auto) 2.9 % Baso % (Auto) 0.3 % Neut # (Auto) 4.45 (1.4-6.5) K/uL Lymph # (Auto) 2.83 (1.2-3.4) K/uL Meagher # (Auto) 1.44 H (0.11-0.59) K/uL Eos # (Auto) 0.26 (0-0.5) K/uL Baso # (Auto) 0.03 (0-0.2) K/uL Immature Gran # (Auto) 0.02 (0.00-0.02) K/uL PT 10.6 (9.0-12.0) Seconds INR 1.0 (0.9-1.1) APTT 23.9 (21.0-31.0) Seconds PTT Ratio 0.9 Sodium 141 (136-145) mmol/L Potassium 3.8 (3.5-5.1) mmol/L Chloride 106 (98-107) mmol/L Carbon Dioxide 26 (21-32) mmol/L Anion Gap 9.0 (3-11) BUN 14 (7-18) mg/dl Creatinine 0.94 (0.6-1.4) mg/dl Est Cr Clr Drug Dosing Not Reportable Est GFR ( Amer) 92.9 Est GFR (Non-Af Amer) 80.1 BUN/Creatinine Ratio 14.6 (10-20) Glucose 131 H (70-99) mg/dl Calcium 9.1 (8.5-10.1) mg/dl Magnesium 2.1 (1.8-2.4) mg/dl Total Bilirubin 0.5 (0.2-1) mg/dl AST 18 (15-37) U/L ALT 32 (12-78) U/L Alkaline Phosphatase 74 (45-117) U/L Total Creatine Kinase 96 (39-308) U/L Troponin I 0.021 (0-0.045) ng/ml Total Protein 6.7 (6.4-8.2) gm/dl Albumin 3.5 (3.4-5.0) gm/dl Globulin 3.2 (2.5-4.0) gm/dl Albumin/Globulin Ratio 1.1 (0.9-2) TSH 10.600 H (0.300-4.500) uIu/ml Free T4 1.16 (0.8-1.6) ng/dl COVID-19 Eval Order SARS-CoV-2, RNA, NAAT (NEGATIVE) 06/12/20 06/12/20 Range/Units 00:38 00:38 WBC (4.8-10.8) K/uL RBC (4.7-6.1) M/uL Hgb (14.0-18.0) g/dL Hct (42-52) % MCV (80-100) fL MCH (25-34) pg MCHC (32-36) g/dL RDW Std Deviation (36.4-46.3) fL RDW Coeff of Kyleigh (11.5-14.5) % Plt Count (130-400) K/uL MPV (7.4-10.4) fL Immature Gran % (Auto) % Neut % (Auto) % Lymph % (Auto) % Meagher % (Auto) % Eos % (Auto) % Baso % (Auto) % Neut # (Auto) (1.4-6.5) K/uL Lymph # (Auto) (1.2-3.4) K/uL Meagher # (Auto) (0.11-0.59) K/uL Eos # (Auto) (0-0.5) K/uL Baso # (Auto) (0-0.2) K/uL Immature Gran # (Auto) (0.00-0.02) K/uL PT (9.0-12.0) Seconds INR (0.9-1.1) APTT (21.0-31.0) Seconds PTT Ratio Sodium (136-145) mmol/L Potassium (3.5-5.1) mmol/L Chloride (98-107) mmol/L Carbon Dioxide (21-32) mmol/L Anion Gap (3-11) BUN (7-18) mg/dl Creatinine (0.6-1.4) mg/dl Est Cr Clr Drug Dosing Est GFR ( Amer) Est GFR (Non-Af Amer) BUN/Creatinine Ratio (10-20) Glucose (70-99) mg/dl Calcium (8.5-10.1) mg/dl Magnesium (1.8-2.4) mg/dl Total Bilirubin (0.2-1) mg/dl AST (15-37) U/L ALT (12-78) U/L Alkaline Phosphatase (45-117) U/L Total Creatine Kinase (39-308) U/L Troponin I (0-0.045) ng/ml Total Protein (6.4-8.2) gm/dl Albumin (3.4-5.0) gm/dl Globulin (2.5-4.0) gm/dl Albumin/Globulin Ratio (0.9-2) TSH (0.300-4.500) uIu/ml Free T4 (0.8-1.6) ng/dl COVID-19 Eval Order Covid19 IDNow [facility] SARS-CoV-2, RNA, NAAT NEGATIVE (NEGATIVE) Administered Medications Amiodarone HCl/Dextrose (Nexterone / D5w) 360 mg in 200 mls @ 33.333 mls/hr IV ONE ONE Stop: 06/12/20 05:38 Last Admin: 06/11/20 23:54 Dose: 33.3 mls/hr Documented by: [id number] Cosigned by: [id number] Lactated Ringer's (Lr) 1,000 mls @ 500 mls/hr IV .Q2H ONE Stop: 06/12/20 02:15 Last Admin: 06/12/20 00:40 Dose: 500 mls/hr Documented by: [id number] Discontinued Medications Amiodarone HCl/Dextrose (Amiodarone 150mg / 100ml D5w) Confirm Administered Dose 150 mg IV .STK-MED ONE Stop: 06/11/20 23:24 Last Admin: 06/11/20 23:41 Dose: Not Given Documented by: [id number] Amiodarone HCl/Dextrose (Amiodarone 360mg / 200ml D5w) Confirm Administered Dose 360 mg IV .STK-MED ONE Stop: 06/11/20 23:24 Last Admin: 06/11/20 23:53 Dose: Not Given Documented by: [id number] Amiodarone HCl (Amiodarone Iv Bolus & Drip) 1 ea IV NOW STA; Protocol Stop: 06/11/20 23:40 Last Admin: 06/11/20 23:53 Dose: 1 ea Documented by: [id number] Amiodarone HCl/Dextrose (Nexterone / D5w) 150 mg in 100 mls @ 600 mls/hr IV NOW STA Stop: 06/11/20 23:37 Last Infusion: 06/12/20 00:05 Dose: 0 mls/hr Documented by: [id number] Cosigned by: [id number] Admin: 06/11/20 23:37 Dose: 600 mls/hr Documented by: [id number] Cosigned by: [id number] Magnesium Sulfate/Dextrose (Magnesium Sulfate / D5w) 1 gm in 100 mls @ 400 mls/hr IV NOW STA Stop: 06/11/20 23:42 Last Infusion: 06/12/20 00:06 Dose: 0 mls/hr Documented by: [id number] Admin: 06/11/20 23:40 Dose: 400 mls/hr Documented by: [id number] Amiodarone HCl/Dextrose (Nexterone / D5w) 150 mg in 100 mls @ 600 mls/hr IV NOW STA Stop: 06/11/20 23:48 Last Admin: 06/11/20 23:42 Dose: Not Given Documented by: [id number] Phenylephrine HCl 20 mg/ (Dextrose) 502 mls @ 84.938 mls/hr IV .Q5H55M NISHA; Pro tocol Stop: 07/11/20 23:44 Last Titration: 06/12/20 00:20 Dose: 0 mcg/kg/min, 0 mls/hr Documented by: [id number] Admin: 06/12/20 00:05 Dose: 0.5 mcg/kg/min, 84.9 mls/hr Documented by: [id number] Cosigned by: [id number] Amiodarone HCl/Dextrose (Nexterone / D5w) 150 mg in 100 mls @ 600 mls/hr IV NOW STA Stop: 06/12/20 00:22 Last Infusion: 06/12/20 00:41 Dose: 0 mls/hr Documented by: [id number] Cosigned by: [id number] Admin: 06/12/20 00:14 Dose: 600 mls/hr Documented by: [id number] Cosigned by: [id number] Lidocaine HCl (Xylocaine 1%/Sod Bicarb 20 Ml Vial) Confirm Administered Dose 20 ml INFIL .STK-MED ONE Stop: 06/12/20 00:08 Last Admin: 06/12/20 00:10 Dose: 20 ml Documented by: [id number] Magnesium Sulfate/Dextrose (Magnesium Sulfate 1gm / D5w Bag) Confirm Administered Dose 1 gm IV .STNeedium-MED ONE Stop: 06/11/20 23:29 Last Admin: 06/11/20 23:41 Dose: Not Given Documented by: [id number] Metoprolol Tartrate (Metoprolol Tartrate 1 Mg/Ml Vial) Confirm Administered Dose 5 mg IV .STNeedium-MED ONE Stop: 06/11/20 23:24 Last Admin: 06/11/20 23:40 Dose: 5 mg Documented by: [id number] Miscellaneous (Stat Iv Infusion Titration Per Protocol) 1 ea N/A NOW STA Stop: 06/11/20 23:40 Last Admin: 06/11/20 23:54 Dose: 1 ea Documented by: [id number] Miscellaneous (Stat Iv Infusion Titration Per Protocol) 1 ea N/A NOW STA Stop: 06/11/20 23:49 Last Admin: 06/11/20 23:54 Dose: 1 ea Documented by: [id number] Potassium Chloride (Potassium Chloride Crtab 20 Meq Tabcr) 20 meq PO NOW STA Stop: 06/12/20 00:17 Last Admin: 06/12/20 00:50 Dose: 20 meq Documented by: [id number] Discharge Plan Visit Data Chief Complaint: Tachycardia Stated Complaint: TACHYCARDIA/SYNCOPE ED Provider: Devin Caban Discharge Problem: Wide-complex tachycardia, Acute hypotension, Syncope and collapse, Laceration of right hand Forms Stand Alone Forms: [facility] Prescriptions Prescriptions: No Action diclofenac sodium [Voltaren] 1 % Gel 2 g TOPICAL TID PRN (Reason: Pain) RF: 0 loratadine 10 mg Tablet 10 mg PO DAILY RF: 0 tamsulosin 0.4 mg capsule 0.4 mg PO DAILY RF: 0 valacyclovir 500 mg tablet 500 mg PO DAILY RF: 0 spironolactone 25 mg Tablet 25 mg PO QAM Qty: 30 RF: 0 glipizide 5 mg tablet 10 mg PO AMPM RF: 0 atorvastatin 40 mg tablet 40 mg PO DAILY RF: 0 hydrochlorothiazide 25 mg tablet 25 mg PO QDL RF: 0 metformin 1,000 mg tablet 1,000 mg PO BID RF: 0 losartan 100 mg tablet 100 mg PO DAILY RF: 0 aspirin 81 mg Tablet,Delayed Release (Dr/Ec) 81 mg PO DAILY RF: 0 omeprazole 20 mg capsule,delayed release(DR/EC) 20 mg PO HS RF: 0 omega 8-dpn-pfu-fish oil [Fish Oil] 360-1,200 mg Capsule,Delayed Release(Dr/Ec) 1 cap PO DAILY RF: 0 fluticasone propionate 50 mcg/actuation spray,suspension 2 spray INTRANASAL QAM RF: 0 Ozempic 1 mg/dose (2 mg/1.5 mL) pen injector 1 mg SUBCUT WK RF: 0 amoxicillin 500 mg PO TID RF: 0 metoprolol succinate 50 mg Tablet Extended Release 24 Hr 100 mg PO BID Qty: 60 RF: 0 hydralazine 25 mg Tablet 25 mg PO TID Qty: 90 RF: 0 metoprolol tartrate 25 mg Tablet 25 mg PO Q6H PRN (Reason: palpitations) Qty: 60 RF: 0 Discharge Problem: Laceration of right hand Qualifiers: Encounter type: initial encounter Foreign body presence: without foreign body Q ualified Code(s): S61.411A - Laceration without foreign body of right hand, initial encounter
[2020-06-11] MEDS ORDERED: PHENYLEPHRINE HCL 20 MG in DEXTROSE 5% 500 ML IV SCH (23:45)
[2020-06-11 23:48] LABS: Basophils # (auto) 0.03 K/uL (0-0.2); Basophils % (auto) 0.3 %; Eosinophils # (auto) 0.26 K/uL (0-0.5); Eosinophils % (auto) 2.9 %; Hematocrit (blood only) 40.4 % (42-52); Hemoglobin 13.5 g/dL (14.0-18.0); Immature Granulocytes # (auto) 0.02 K/uL (0.00-0.02); Immature Granulocytes % (auto) 0.2 %; Lymphocytes # (auto) 2.83 K/uL (1.2-3.4); Lymphocytes % (auto) 31.3 %; Mean Corpuscular Hemoglobin 28.2 pg (25-34); Mean Corpuscular Hgb Conc 33.4 g/dL (32-36); Mean Corpuscular Volume 84.5 fL (80-100); Mean Platelet Volume 9.9 fL (7.4-10.4); Monocytes # (auto) 1.44 K/uL (0.11-0.59); Monocytes % (auto) 15.9 %; Neutrophils # (auto) 4.45 K/uL (1.4-6.5); Neutrophils % (auto) 49.4 %; Platelet Count 239 K/uL (130-400); RDW Coefficient of Variation 14.9 % (11.5-14.5); Red Blood Count 4.78 M/uL (4.7-6.1); White Blood Count 9.03 K/uL (4.8-10.8)
[2020-06-11 23:51] LABS: Alanine Aminotransferase 32 U/L (12-78); Albumin Level 3.5 gm/dl (3.4-5.0); Aspartate Aminotransferase 18 U/L (15-37); BUN Creatinine Ratio 14.6 (10-20); Blood Urea Nitrogen 14 mg/dl (7-18); Calcium 9.1 mg/dl (8.5-10.1); Carbon Dioxide 26 mmol/L (21-32); Chloride 106 mmol/L (98-107); Est GFR (African American) 92.9; Est GFR (Non-African American) 80.1; Glucose 131 mg/dl (70-99); Magnesium 2.1 mg/dl (1.8-2.4); Potassium 3.8 mmol/L (3.5-5.1); Sodium 141 mmol/L (136-145)
[2020-06-11 23:55] LABS: Partial Thromboplastin Ratio 0.9; Partial Thromboplastin Time 23.9 Seconds (21.0-31.0); Prothrombin Time 10.6 Seconds (9.0-12.0)
[2020-06-12 00:02] LABS: Albumin Globulin Ratio 1.1 (0.9-2); Alkaline Phosphatase 74 U/L (45-117); Bilirubin,Total 0.5 mg/dl (0.2-1); Creatine Kinase 96 U/L (39-308); Globulin 3.2 gm/dl (2.5-4.0); Total Protein 6.7 gm/dl (6.4-8.2); Troponin I 0.021 ng/ml (0-0.045)
[2020-06-12] MEDS ORDERED: XYLOCAINE 1%/SOD BICARB 20 ML VIAL INFIL ONE (00:07)
[2020-06-12] MEDS ORDERED: AMIODARONE / D5W 150 MG/100 ML BAG IV STA (00:13)
[2020-06-12] MEDS ORDERED: 0.2 MICRON FILTER SET 1 EA IV ONE (00:13)
[2020-06-12 00:15] LABS: T4 Free Thyroxine 1.16 ng/dl (0.8-1.6)
[2020-06-12] MEDS ORDERED: POTASSIUM CHLORIDE CRTAB 20 MEQ TABCR PO STA ×2 (00:16→06:47)
[2020-06-12] MEDS ORDERED: LACTATED RINGER'S 1,000 ML IV ONE (00:16)
--- NOTE | 2020-06-12 00:58 | History & Physical Report ---
Date of Service June 12, 2020 Assessment & Plan (1) Wide-complex tachycardia: Likely SVT with aberrant conduction hx PSVT Hypotension secondary to above BP improved after phenylephrine and improved heart rate control with amiodarone Syncopal event secondary to hypotension Uncontrolled GERD hyperlipidemia on statin Rx hx nonobstructive CAD/ PVD (aortic root/ascending aorta dilatation) DM2 on oral medications, well-controlled as of recent hemoglobin A1c of 7.28 April 2020 chronic anemia, hemoglobin at baseline REANNA on CPAP past tobacco abuse PCU Continue Amiodarone infusion Cardiology consult RE recurrent SVT/wide-complex tachycardia (ER provider already in touch Dr. Salamanca.) Appropriate to hold antihypertensives for now given hypotension on admission until patient seen by Cardiology. Revert to PPI BID dosing. Basal insulin, ISS BG goal [id number], carb count coverage DVT prophylaxis per Lovenox subcu Full code Text document was generated using [employer] voice recognition software. It may contain grammatical or spelling errors. Kindly contact undersigned for clarification of any documentation item in question. History of Present Illness Chief Complaint: Syncope Primary Care Provider: Humberto Reyes MD History obtained from patient and records. Medical history significant for hypertension, hyperlipidemia, nonobstructive CAD, PVD (aortic root/ascending aorta dilatation), DM2 on oral medications, chronic anemia (baseline hemoglobin 12-13), REANNA on CPAP, past tobacco abuse. Recent overnight confinement June 09-2020 for near syncope secondary to SVT. Cardiology recommended increasing home beta-lopez dose to Toprol-XL 100 mg twice daily. Last night after coming off the toilet, patient noted lightheadedness symptoms followed by a syncopal event. Woke up a few moments later and would feel dizzy when trying to get up. Transient burning chest discomfort similar to reflux. Reflux not well controlled since GI provider decreased PPI from prior twice daily dosing to once daily as per patient. No cough, S OB symptoms. Patient denies headache or head trauma. Right hand wound later noted. Patient noted to be hypotensive upon arrival of EMS. Noted to be in SVT. Given 2 doses of adenosine in route to the hospital. Rhythm alternating between SVT and wide-complex tachycardia as per documentation. Cardiac rate 150s upon arrival at the ER. Amiodarone and phenylephrine infusions initiated at the ER SBP currently 150s. Cardiac rate 70s. Patient feeling more comfortable. 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 Allergies Allergy/AdvReac Type Severity Reaction Status Date / Time iodine Allergy Intermediate FULL BODY Verified 06/11/20 23:37 ITCHING shellfish derived Allergy Intermediate FULL BODY Verified 06/11/20 23:37 ITCHING IODINE BETADINE Allergy Intermediate FULL BODY Uncoded 06/11/20 23:37 ITCHING Home Medications Medication Instructions Recorded Confirmed Type Ozempic 1 mg SUBCUT WK 08/13/19 06/11/20 History aspirin 81 mg PO DAILY 08/13/19 06/11/20 History atorvastatin 40 mg PO DAILY 08/13/19 06/11/20 History fluticasone propionate 2 spray INTRANASAL QAM 08/13/19 06/11/20 History glipizide 10 mg PO AMPM 08/13/19 06/11/20 History hydrochlorothiazide 25 mg PO QDL 08/13/19 06/11/20 History losartan 100 mg PO DAILY 08/13/19 06/11/20 History metformin 1,000 mg PO BID 08/13/19 06/11/20 History omega 5-[id number]-ohl-fish oil [Fish Oil] 1 cap PO DAILY 08/13/19 06/11/20 History omeprazole 20 mg PO HS 08/13/19 06/11/20 History diclofenac sodium [Voltaren] 2 g TOPICAL TID PRN 05/14/20 06/11/20 History loratadine 10 mg PO DAILY 05/14/20 06/11/20 History tamsulosin 0.4 mg PO DAILY 05/14/20 06/11/20 History valacyclovir 500 mg PO DAILY 05/14/20 06/11/20 History spironolactone 25 mg PO QAM #30 tab 05/15/20 06/11/20 Rx amoxicillin 500 mg PO TID 06/09/20 06/11/20 History hydralazine 25 mg PO TID #90 tab 06/10/20 06/11/20 Rx metoprolol succinate 100 mg PO BID #60 tab 06/10/20 06/11/20 Rx metoprolol tartrate 25 mg PO Q6H PRN #60 tab 06/10/20 06/11/20 Rx Past Med/Surg History Medical History Ascending aorta dilatation Diabetes mellitus, type II GERD (gastroesophageal reflux disease) HLD (hyperlipidemia) Hypertension Nonobstructive atherosclerosis of coronary artery REANNA on CPAP Surgical History H/O cardiac catheterization History of partial colectomy History of tonsillectomy S/p nephrectomy Family History Other Colorectal cancer Lung cancer Social History Smoking Status: Former smoker Tobacco Type: Cigarettes Years Smoked: 30; Second Hand Exposure: No; Hx Alcohol Use: No Hx Substance Use: No Preferred Language: Swedish Communication Ability: Effective Coagulating Drying Supervisor Required: No Beliefs That Will Affect Care: None Current Living Situation: Family Feels Safe at Home: Yes Assistive Devices: Hearing Aid - Bilateral Review of Systems Review of Systems: As per HPI, all 10 systems reviewed, all other ROS negative Physical Exam Physical Exam: GENERAL: Comfortable, pleasant, obese, no respiratory distress SKIN: Normal color, warm HEENT: Alopecia, [place] palpebral conjunctivae, no ptosis, dry buccal mucosa NECK : Supple, short neck, no tenderness CHEST : CTA, no tenderness HEART : RRR, no obvious murmurs ABDOMEN: Some distention, nontender EXTREMITIES : No LE swelling/tenderness, Band-Aid over right hand NEUROLOGIC : Coherent, no facial asymmetry, no other gross focality Results & Data Results & Data ([facility] [place]) Vital Signs (Past 12 Hours) Vital Signs Temp Pulse Pulse Resp BP BP Pulse Ox 06/12/20 00:10 76 18 149/85 H 100 06/11/20 23:40 154 H 06/11/20 23:35 36.8 C 160 H 16 100/60 98 Laboratory Results Laboratory Results WBC 9.03 K/uL (4.8-10.8) 06/11/20 23:20 RBC 4.78 M/uL (4.7-6.1) 06/11/20 23:20 Hgb 13.5 g/dL (14.0-18.0) L 06/11/20 23:20 Hct 40.4 % (42-52) L 06/11/20 23:20 MCV 84.5 fL (80-100) 06/11/20 23:20 MCH 28.2 pg (25-34) 06/11/20 23:20 MCHC 33.4 g/dL (32-36) 06/11/20 23:20 RDW Std Deviation 46.0 fL (36.4-46.3) 06/11/20 23: RDW Coeff of Kyleigh 14.9 % (11.5-14.5) H 06/11/20 23:20 Plt Count 239 K/uL (130-400) 06/11/20 23:20 MPV 9.9 fL (7.4-10.4) 06/11/20 23:20 Immature Gran % (Auto) 0.2 % 06/11/20 23:20 Neut % (Auto) 49.4 % 06/11/20 23:20 Lymph % (Auto) 31.3 % 06/11/20 23:20 [place] % (Auto) 15.9 % 06/11/20 23:20 Eos % (Auto) 2.9 % 06/11/20 23:20 Baso % (Auto) 0.3 % 06/11/20 23:20 Neut # (Auto) 4.45 K/uL (1.4-6.5) 06/11/20 23:20 Lymph # (Auto) 2.83 K/uL (1.2-3.4) 06/11/20 23:20 [place] # (Auto) 1.44 K/uL (0.11-0.59) H 06/11/20 23:20 Eos # (Auto) 0.26 K/uL (0-0.5) 06/11/20 23:20 Baso # (Auto) 0.03 K/uL (0-0.2) 06/11/20 23:20 Immature Gran # (Auto) 0.02 K/uL (0.00-0.02) 06/11/20 23:20 PT 10.6 Seconds (9.0-12.0) 06/11/20 23:20 INR 1.0 (0.9-1.1) 06/11/20 23:20 APTT 23.9 Seconds (21.0-31.0) 06/11/20 23:20 PTT Ratio 0.9 06/11/20 23:20 Sodium 141 mmol/L (136-145) 06/11/20 23:20 Potassium 3.8 mmol/L (3.5-5.1) 06/11/20 23:20 Chloride 106 mmol/L (98-107) 06/11/20 23:20 Carbon Dioxide 26 mmol/L (21-32) 06/11/20 23:20 Anion Gap 9.0 (3-11) 06/11/20 23:20 BUN 14 mg/dl (7-18) 06/11/20 23:20 Creatinine 0.94 mg/dl (0.6-1.4) 06/11/20 23:20 Est Cr Clr Drug Dosing Not Reportable 06/11/20 23:20 Est GFR ( Amer) 92.9 06/11/20 23:20 Est GFR (Non-Af Amer) 80.1 06/11/20 23:20 BUN/Creatinine Ratio 14.6 (10-20) 06/11/20 23:20 Glucose 131 mg/dl (70-99) H 06/11/20 23:20 Calcium 9.1 mg/dl (8.5-10.1) 06/11/20 23:20 Magnesium 2.1 mg/dl (1.8-2.4) 06/11/20 23:20 Total Bilirubin 0.5 mg/dl (0.2-1) 06/11/20 23:20 AST 18 U/L (15-37) 06/11/20 23:20 ALT 32 U/L (12-78) 06/11/20 23:20 Alkaline Phosphatase 74 U/L (45-117) 06/11/20 23:20 Total Creatine Kinase 96 U/L (39-308) 06/11/20 23:20 Troponin I 0.021 ng/ml (0-0.045) 06/11/20 23:20 Total Protein 6.7 gm/dl (6.4-8.2) 06/11/20 23:20 Albumin 3.5 gm/dl (3.4-5.0) 06/11/20 23:20 Globulin 3.2 gm/dl (2.5-4.0) 06/11/20 23:20 Albumin/Globulin Ratio 1.1 (0.9-2) 06/11/20 23:20 TSH 10.600 uIu/ml (0.300-4.500) H 06/11/20 23:20 Free T4 1.16 ng/dl (0.8-1.6) 06/11/20 23:20 COVID[facility]19 [facility] 06[facility]12/20 00:38 Diagnostic Findings Chest x-ray as per my interpretation cardiomegaly Right hand x-ray read pending EKG as per my interpretation : Rate 180, SVT with aberrancy, LAD, LAFB, RBBB, LVH, no ischemia
[2020-06-12] MEDS ORDERED: DEXTROSE 50% 50 ML SYRINGE IV PRN (02:30)
[2020-06-12] MEDS ORDERED: GLUCOSE 10 TABS/TUBE PO PRN (02:30)
[2020-06-12] MEDS ORDERED: oxyCODONE HCL IR 5 MG TAB (IMMEDIATE RELEASE) PO PRN (02:30)
[2020-06-12] MEDS ORDERED: LORazepam 0.25 MG/0.5 ML VIAL IV PRN (02:30)
[2020-06-12] MEDS ORDERED: PROMETHAZINE HCL 12.5 MG in SODIUM CHLORIDE 0.9% 50 ML IV PRN (02:30)
[2020-06-12] MEDS ORDERED: DICLOFENAC SOD 1% GEL 100 GM TUBE EXT PRN (02:30)
[2020-06-12] MEDS ORDERED: CARBOHYDRATES FOR HYPOGLYCEMIA PO PRN (02:30)
[2020-06-12] MEDS ORDERED: PANTOprazole 40 MG TAB PO STA (02:30)
[2020-06-12] MEDS ORDERED: GLUCAGON FOR INJ 1 MG VIAL SQ PRN (02:30)
[2020-06-12] MEDS ORDERED: GLUCOSE 40% GEL 15 GM TUBE PO PRN (02:30)
[2020-06-12] MEDS ORDERED: MoRPHine SULFATE 4 MG/ML 1 ML CARP\\VIAL IV PRN (02:42)
[2020-06-12] MEDS: INSULIN ASPART 100 UNITS/ML 3 ML PEN SC SCH ×5 (03:12→20:31)
--- NOTE | 2020-06-12 03:22 | Emergency Department Note ---
ED Visit Note Patient was seen and evaluated by Dr. Caban. I was present to perform primary wound closure of the right 1st digit laceration measuring 2.0 cm overlying the right 1st digit ventral base. It is "V" shaped. Risks and benefits of performing primary wound closure versus no repair were discussed with the patient who verbalizes understanding. Verbal consent was obtained prior to performing the procedure. 3 cc of 1% buffered lidocaine w/out epi was used to anesthetize the 2 cm laceration. The wound was cleansed and prepped in the typical sterile fashion utilizing normal saline and ChloraPrep. The wound was sterilely draped. Once proper anesthetization was established, the wound was further examined and demonstrated no deep structure involvement. The wound was copiously irrigated with normal saline and scrubbed with chloraprep. The wound was closed using 4 simple, 5-0 nylon sutures with the wound edges being well approximated. Patient tolerated the procedure well. No complications were met. The wound was cleansed and dressed with a Bacitracin dressing. Please refer to further documentation regarding his stay. No betadine/iodine was used secondary to allergy. Pt. NV intact post repair. . : Laceration of right hand Qualifiers: Encounter type: initial encounter Foreign body presence: without foreign body Qualified Code(s): S61.411A - Laceration without foreign body of right hand, initial encounter
[2020-06-12] MEDS: AMIODARONE / D5W 360 MG/200 ML BAG IV SCH ×2 (05:08→17:26)
[2020-06-12 05:47] LABS: Basophils # (auto) 0.02 K/uL (0-0.2); Basophils % (auto) 0.2 %; Eosinophils # (auto) 0.19 K/uL (0-0.5); Hematocrit (blood only) 39.4 % (42-52); Hemoglobin 12.9 g/dL (14.0-18.0); Immature Granulocytes # (auto) 0.02 K/uL (0.00-0.02); Immature Granulocytes % (auto) 0.2 %; Lymphocytes # (auto) 2.72 K/uL (1.2-3.4); Lymphocytes % (auto) 28.5 %; Mean Corpuscular Hemoglobin 28.4 pg (25-34); Mean Corpuscular Hgb Conc 32.7 g/dL (32-36); Mean Corpuscular Volume 86.6 fL (80-100); Mean Platelet Volume 9.8 fL (7.4-10.4); Monocytes % (auto) 14.7 %; Neutrophils % (auto) 54.4 %; Platelet Count 249 K/uL (130-400); RDW Coefficient of Variation 15.2 % (11.5-14.5); RDW Standard Deviation 48.2 fL (36.4-46.3); Red Blood Count 4.55 M/uL (4.7-6.1); White Blood Count 9.55 K/uL (4.8-10.8)
[2020-06-12 05:59] LABS: Partial Thromboplastin Time 25.1 Seconds (21.0-31.0)
[2020-06-12 06:22] LABS: BUN Creatinine Ratio 13.6 (10-20); Calcium 8.9 mg/dl (8.5-10.1); Creatinine Clr Calc Pharmacy 103.5 ml/min; Est GFR (African American) 104.9; Est GFR (Non-African American) 90.5; Potassium 3.8 mmol/L (3.5-5.1)
[2020-06-12 06:45] LABS: Troponin I 0.056 ng/ml (0-0.045)
[2020-06-12] MEDS ORDERED: hydrALAZINE HCL 25 MG TAB PO SCH (06:55)
--- NOTE | 2020-06-12 07:03 | XRay Report ---
XR chest 1V portable CLINICAL HISTORY: Shortness of breath. COMPARISON STUDY: Chest radiograph 07/07/2020. FINDINGS: Lung volumes are normal. Lungs are clear. There is no pneumothorax or pleural effusion. Car diomegaly is unchanged. Mediastinal contours are normal. There is no evidence for pulmonary edema. Th ere is evidence for distal right clavicular resection. IMPRESSION: No acute cardiopulmonary findings. No change in appearance of the chest. ACT 112: Negative or not required by law. Electronically signed by: Gian Henson M.D. 06/12/2020 7:02 AM
--- NOTE | 2020-06-12 07:12 | XRay Report ---
XR hand RT min 3V routine CLINICAL HISTORY: Right hand pain status post trauma COMPARISON: None. DISCUSSION: The bones are osteopenic. There are moderate osteoarthritic changes most pronounced at th e level of the first carpal metacarpal joint. There is also narrowing of the radiocarpal joint. There is mild widening of the scapholunate distance suggesting a scapholunate ligamentous disruption. This may be chronic. IMPRESSION: 1. No acute fractures identified 2. Moderate arthritic change 3. Conventional radiographic findings suggesting a scapholunate ligamentous disruption ACT 112: Negative or not required by law. Electronically signed by: Tamir Hatfield M.D. 06/12/2020 7:10 AM
[2020-06-12] MEDS: ENOXAPARIN INJ 40 MG/0.4 ML SYR SQ SCH (08:01)
[2020-06-12] MEDS: FLUTICASONE PROPIONATE NA SPR 16 GM BTL SCH (08:02)
[2020-06-12] MEDS: ASPIRIN 81 MG ECTAB PO SCH (08:02)
[2020-06-12] MEDS: ATORVASTATIN 40 MG TAB PO SCH (08:02)
[2020-06-12] MEDS: INSULIN GLARGINE SOLOSTAR 100 UNITS/ML 3 ML PEN SC SCH (08:13)
--- NOTE | 2020-06-12 12:59 | Cardiology Consultation ---
Date of Consultation June 12, 2020 Assessment & Plan (1) Syncope and collapse: (2) SVT (supraventricular tachycardia): (3) Laceration of right hand: (4) Acute hypotension: (5) Nonobstructive atherosclerosis of coronary artery: (6) REANNA on CPAP: (7) Hypertension: (8) HLD (hyperlipidemia): Unfortunately, he is experienced breakthrough SVT despite metoprolol. Has been started on amiodarone bolus and load and will continue. Anticipate switching to oral amiodarone in the a.m. and should he have recurrences of SVT consideration may have to be given to EPS and possible ablation. Obviously, this is complicated by his underlying conduction system disease and may ultimately require pacemaker placement as well. Blood pressure now significantly improved, will use this opportunity to see if we can wean off hydralazine. We will hold hydralazine and restart losartan and follow blood pressures closely. Continue aspirin and atorvastatin. The above plan was discussed with the patient in great lengths along with the pathophysiology of SVT and conduction system disease and he agrees with the above plan. Obviously, he would like to avoid pacemaker placement if at all possible. History of Present Illness Reason for Consultation: SVT/syncope Requesting Physician: Dr. Figueroa Attending Physician: Manjeet Figueroa MD History of Present Illness Mr. Joseph is a very pleasant 74-year-old gentleman who was only discharged from [facility] recently on the after presenting with symptomatic SVT. He presented back to the emergency room on the after suffering multiple syncopal events. He states he was feeling well throughout the day after discharge but then in the evening while trying to make dinner he became lightheaded. He felt his heart racing as it did when he was in SVT previously. He attempted to make his way to the bedroom but unfortunately lost consciousness and fell. He is not sure exactly what he hit but he did have a significant laceration to his right hand which required suturing in the ER. The lightheadedness then persisted and he states that he was going in and out of consciousness. He was able to summon EMS who found him to be in SVT. He was given adenosine in the field which was only transiently able to sustain sinus rhythm. Upon arrival to the emergency department he was in SVT and borderline hypotensive so he received a total of: Amio 150mg IV x 2, Amio gtt, Mag 1gm IV, Lopressor 5mg IV, NSS bolus 2 L IV, Phenylephrine gtt. Rhythm stabilized to sinus and BP improved. He was continued on the amiodarone drip and admitted to telemetry. Overnight he states that he feels okay but still remains very tired. No recurrences of palpitations but remains lightheaded upon standing. Past medical history as per most recent outpatient cardiology note: 1. Palpitations. Sensed atrial and ventricular ectopy. Symptoms significantly improved after switching carvedilol to metoprolol, as detailed above. 2. Conduction system disease, right bundle branch block, left anterior fascicular block, bifascicular block. Possible future need for permanent pacemaker implantation dicussed. 3. Labile hypertension, Hypertensive heart disease. BP acceptably controled at home and on my examination. Nonpharmacologic treatments discussed. Follow. 4. Abnormal exercise nuclear stress testing in 2011, indicative of inferior wall ischemia. Diagnostic cardiac catheterization at [facility] on December 31, 2011 revealed no significant obstructive coronary artery disease. See above. DSE negative in January 2016. Back and hip issues will not allow for ambulatory stress testing. Continue risk factor and life style modification. 5. Enlarged aortic root and ascending aorta. Continue routine surveillance (scheduled to be done on 12/21/2019). 6. Dyslipidemia. LDL 50 mg/dL on 06/15/2019. Continue atorvastatin 40 mg/day. 7. Type 2 diabetes mellitus. Followed by PCP. HgZ1c 6.2% in May 2019. 8. Solitary kidney. Creatinine 0.6 on 06/15/2019 9. Obstructive sleep apnea, CPAP QHS. 10. Recurrent syncope 11. Sustained, symptomatic SVT transiently controlled with metoprolol Allergies Allergy/AdvReac Type Severity Reaction Status Date / Time iodine Allergy Intermediate FULL BODY Verified 06/11/20 23:37 ITCHING shellfish derived Allergy Intermediate FULL BODY Verified 06/11/20 23:37 ITCHING IODINE BETADINE Allergy Intermediate FULL BODY Uncoded 06/11/20 23:37 ITCHING Home Medications Medication Instructions Recorded Confirmed Type Ozempic 1 mg SUBCUT WK 08/13/19 06/11/20 History aspirin 81 mg PO DAILY 08/13/19 06/11/20 History atorvastatin 40 mg PO DAILY 08/13/19 06/11/20 History fluticasone propionate 2 spray INTRANASAL QAM 08/13/19 06/11/20 History glipizide 10 mg PO AMPM 08/13/19 06/11/20 History hydrochlorothiazide 25 mg PO QDL 08/13/19 06/11/20 History losartan 100 mg PO DAILY 08/13/19 06/11/20 History metformin 1,000 mg PO BID 08/13/19 06/11/20 History omega [id number] oil [Fish Oil] 1 cap PO DAILY 08/13/19 06/11/20 History omeprazole 20 mg PO HS 08/13/19 06/11/20 History diclofenac sodium [Voltaren] 2 g TOPICAL TID PRN 05/14/20 06/11/20 History loratadine 10 mg PO DAILY 05/14/20 06/11/20 History tamsulosin 0.4 mg PO DAILY 05/14/20 06/11/20 History valacyclovir 500 mg PO DAILY 05/14/20 06/11/20 History spironolactone 25 mg PO QAM #30 tab 05/15/20 06/11/20 Rx amoxicillin 500 mg PO TID 06/09/20 06/11/20 History hydralazine 25 mg PO TID #90 tab 06/10/20 06/11/20 Rx metoprolol succinate 100 mg PO BID #60 tab 06/10/20 06/11/20 Rx metoprolol tartrate 25 mg PO Q6H PRN #60 tab 06/10/20 06/11/20 Rx Patient History Medical History Ascending aorta dilatation Diabetes mellitus, type II GERD (gastroesophageal reflux disease) HLD (hyperlipidemia) Hypertension Nonobstructive atherosclerosis of coronary artery REANNA on CPAP Surgical History H/O cardiac catheterization History of partial colectomy History of tonsillectomy S/p nephrectomy Family History Other Colorectal cancer Lung cancer Social History Smoking Status: Former smoker Tobacco Type: Cigarettes Years Smoked: 30; Second Hand Exposure: No; Hx Alcohol Use: No Hx Substance Use: No Preferred Language: Polish Communication Ability: Effective Medical Liaison Required: No Beliefs That Will Affect Care: None Current Living Situation: Family Feels Safe at Home: Yes Assistive Devices: Hearing Aid - Bilateral Review of Systems Review of Systems: All systems reviewed & are unremarkable except as noted in HPI & below Physical Exam Physical Exam: General: Awake, alert and oriented x 3. No acute distress. HEENT: Normocephalic, atraumatic. Pupils equal, round and reactive to light and accommodation. Extraocular muscles are intact. Anicteric sclera. Moist mucous membranes. Neck: No JVD. No bruit. Cardiovascular: Regular. Positive S-4. Normal S-1 and S-2. No S-3. No murmurs or rubs. Pulmonary: Clear to auscultation B/L. No rales, rhonchi or wheezing Abdomen: Bowel sounds x 4, soft. No rebound, guarding or tenderness. No organomegaly. Extremities: No clubbing, cyanosis or edema. +2 pedal pulses bilaterally. Skin: Warm and dry. Results & Data ([facility]) Vital Signs (Past 12 Hours) Vital Signs Temp Pulse Pulse Resp BP BP Pulse Ox 06/12/20 11:14 36.9 C 64 17 159/89 H 96 06/12/20 09:52 71 06/12/20 06:57 36.5 C 66 19 173/94 H 96 06/12/20 06:53 176/96 H 06/12/20 02:45 36.7 C 70 18 168/91 H 96 06/12/20 02:26 69 16 156/89 H 97 06/12/20 01:21 69 16 150/93 H 97 Laboratory Results Laboratory Results - last 24 hr 06/11/20 06/11/20 06/11/20 23:20 23:20 23:20 WBC 9.03 RBC 4.78 Hgb 13.5 L Hct 40.4 L MCV 84.5 MCH 28.2 MCHC 33.4 RDW Std Deviation 46.0 RDW Coeff of Kyleigh 14.9 H Plt Count 239 MPV 9.9 Immature Gran % (Auto) 0.2 Neut % (Auto) 49.4 Lymph % (Auto) 31.3 [place] % (Auto) 15.9 Eos % (Auto) 2.9 Baso % (Auto) 0.3 Neut # (Auto) 4.45 Lymph # (Auto) 2.83 [place] # (Auto) 1.44 H Eos # (Auto) 0.26 Baso # (Auto) 0.03 Immature Gran # (Auto) 0.02 PT 10.6 INR 1.0 APTT 23.9 PTT Ratio 0.9 Sodium 141 Potassium 3.8 Chloride 106 Carbon Dioxide 26 Anion Gap 9.0 BUN 14 Creatinine 0.94 Est Cr Clr Drug Dosing Not Reportable Est GFR ( Amer) 92.9 Est GFR (Non-Af Amer) 80.1 BUN/Creatinine Ratio 14.6 Glucose 131 H POC Glucose Calcium 9.1 Magnesium 2.1 Total Bilirubin 0.5 AST 18 ALT 32 Alkaline Phosphatase 74 Total Creatine Kinase 96 Troponin I 0.021 Total Protein 6.7 Albumin 3.5 Globulin 3.2 Albumin/Globulin Ratio 1.1 TSH 10.600 H Free T4 1.16 COVID-19 Eval Order SARS-CoV-2, RNA, NAAT 06/12/20 06/12/20 06/12/20 00:38 00:38 03:09 WBC RBC Hgb Hct MCV MCH MCHC RDW Std Deviation RDW Coeff of Kyleigh Plt Count MPV Immature Gran % (Auto) Neut % (Auto) Lymph % (Auto) [place] % (Auto) Eos % (Auto) Baso % (Auto) Neut # (Auto) Lymph # (Auto) [place] # (Auto) Eos # (Auto) Baso # (Auto) Immature Gran # (Auto) PT INR APTT PTT Ratio Sodium Potassium Chloride Carbon Dioxide Anion Gap BUN Creatinine Est Cr Clr Drug Dosing Est GFR ( Amer) Est GFR (Non-Af Amer) BUN/Creatinine Ratio Glucose POC Glucose 188 H Calcium Magnesium Total Bilirubin AST ALT Alkaline Phosphatase Total Creatine Kinase Troponin I Total Protein Albumin Globulin Albumin/Globulin Ratio TSH Free T4 COVID-19 Eval [facility] SARS-CoV-2, RNA, NAAT NEGATIVE 06/12/20 06/12/20 06/12/20 05:19 05:19 05:19 WBC 9.55 RBC 4.55 L Hgb 12.9 L Hct 39.4 L MCV 86.6 MCH 28.4 MCHC 32.7 RDW Std Deviation 48.2 H RDW Coeff of Kyleigh 15.2 H Plt Count 249 MPV 9.8 Immature Gran % (Auto) 0.2 Neut % (Auto) 54.4 Lymph % (Auto) 28.5 [place] % (Auto) 14.7 Eos % (Auto) 2.0 Baso % (Auto) 0.2 Neut # (Auto) 5.20 Lymph # (Auto) 2.72 [place] # (Auto) 1.40 H Eos # (Auto) 0.19 Baso # (Auto) 0.02 Immature Gran # (Auto) 0.02 PT INR APTT 25.1 PTT Ratio 1.0 Sodium 139 Potassium 3.8 Chloride 107 Carbon Dioxide 26 Anion Gap 6.0 BUN 10 Creatinine 0.76 Est Cr Clr Drug Dosing 103.5 Est GFR ( Amer) 104.9 Est GFR (Non-Af Amer) 90.5 BUN/Creatinine Ratio 13.6 Glucose 120 H POC Glucose Calcium 8.9 Magnesium Total Bilirubin AST ALT Alkaline Phosphatase Total Creatine Kinase Troponin I 0.056 H* Total Protein Albumin Globulin Albumin/Globulin Ratio TSH Free T4 COVID-19 Eval Order SARS-CoV-2, RNA, NAAT 06/12/20 06/12/20 06/12/20 08:11 09:44 11:17 WBC RBC Hgb Hct MCV MCH MCHC RDW Std Deviation RDW Coeff of Kyleigh Plt Count MPV Immature Gran % (Auto) Neut % (Auto) Lymph % (Auto) [place] % (Auto) Eos % (Auto) Baso % (Auto) Neut # (Auto) Lymph # (Auto) [place] # (Auto) Eos # (Auto) Baso # (Auto) Immature Gran # (Auto) PT INR APTT PTT Ratio Sodium Potassium Chloride Carbon Dioxide Anion Gap BUN Creatinine Est Cr Clr Drug Dosing Est GFR ( Amer) Est GFR (Non-Af Amer) BUN/Creatinine Ratio Glucose POC Glucose 142 H 192 H Calcium Magnesium Total Bilirubin AST ALT Alkaline Phosphatase Total Creatine Kinase Troponin I 0.060 H* Total Protein Albumin Globulin Albumin/Globulin Ratio TSH Free T4 COVID-19 Eval Order SARS-CoV-2, RNA, NAAT Medications Administered Current Inpatient Medications Acetaminophen (Acetaminophen 325 Mg Tab) 650 mg PO Q4H PRN PRN Reason: Pain or Fever Stop: 07/12/20 02:29 Aspirin (Aspirin 81 Mg Ectab) 81 mg PO DAILY NISHA Stop: 07/12/20 08:59 Last Admin: 06/12/20 08:02 Dose: 81 mg Documented by: Atorvastatin Calcium (Atorvastatin 40 Mg Tab) 40 mg PO DAILY NISHA Stop: 07/12/20 08:59 Last Admin: 06/12/20 08:02 Dose: 40 mg Documented by: Dextrose (Dextrose 50% 50 Ml Syringe) 25 - 50 ml IV UD PRN; Protocol PRN Reason: Hypoglycemia Protocol Stop: 07/12/20 02:29 Diclofenac Sodium (Diclofenac Sod 1% Gel 100 Gm Tube) 2 gm EXT TID PRN PRN Reason: Pain Stop: 07/12/20 02:29 Enoxaparin Sodium (Enoxaparin Inj 40 Mg/0.4 Ml Syr) 40 mg SQ QAM NISHA Stop: 07/12/20 08:59 Last Admin: 06/12/20 08:01 Dose: 40 mg Documented by: Fluticasone Propionate (Fluticasone Propionate Na Spr 16 Gm Btl) 2 sprays NA QAM NISHA Stop: 07/12/20 08:59 Last Admin: 06/12/20 08:02 Dose: Not Given Documented by: Glucagon (Glucagon For Inj 1 Mg Vial) 1 mg SQ UD PRN; Protocol PRN Reason: Hypoglycemia Protocol Stop: 07/12/20 02:29 Glucose (Glucose 10 Tabs/Tube) 4 - 8 tabs PO UD PRN; Protocol PRN Reason: Hypoglycemia Protocol Stop: 07/12/20 02:29 Glucose (Glucose 40% Gel 15 Gm Tube) 15 - 30 gm PO UD PRN; Protocol PRN Reason: Hypoglycemia Protocol Stop: 07/12/20 02:29 Hydralazine HCl (Hydralazine Hcl 25 Mg Tab) 25 mg PO TID NISHA Stop: 07/12/20 06:54 Last Admin: 06/12/20 07:59 Dose: 25 mg Documented by: Amiodarone HCl/Dextrose (Nexterone / D5w) 360 mg in 200 mls @ 16.667 mls/hr IV .Q12H NISHA Stop: 07/12/20 05:38 Last Admin: 06/12/20 05:08 Dose: 0.5 mg/min, 16.7 mls/hr Documented by: Lorazepam (Ativan) 0.25 mg in 0.5 mls @ 0.5 mls/min IV Q4H PRN PRN Reason: Anxiety Stop: 07/12/20 02:29 Promethazine HCl 12.5 mg/ (Sodium Chloride) 50.5 mls @ 202 mls/hr IV Q6H PRN PRN Reason: Nausea And Vomiting Stop: 07/12/20 02:29 Insulin Aspart (Insulin Aspart 100 Units/Ml 3 Ml Pen) 0 units SC ACHS NISHA Stop: 07/12/20 02:29 Last Admin: 06/12/20 11:51 Dose: 3 units Documented by: Insulin Glargine (Insulin Glargine Solostar 100 Units/Ml 3 Ml Pen) 5 units SC DAILY NISHA Stop: 07/12/20 08:59 Last Admin: 06/12/20 08:13 Dose: 5 units Documented by: Miscellaneous (Carbohydrates For Hypoglycemia ) 15 - 30 gm PO UD PRN PRN Reason: Hypoglycemia Protocol Stop: 07/12/20 02:29 Morphine Sulfate (Morphine Sulfate 4 Mg/Ml 1 Ml Carp\Vial) 4 mg IV Q3H PRN PRN Reason: Pain Stop: 06/26/20 02:41 Oxycodone HCl (Oxycodone Hcl Ir 5 Mg Tab (Immediate Release)) 5 - 10 mg PO QID PRN PRN Reason: Pain Stop: 06/26/20 02:29 Pantoprazole Sodium (Pantoprazole 40 Mg Tab) 40 mg PO BID [facility] Stop: 07/12/20 20:59 (1) Laceration of right hand Encounter type: initial encounter Foreign body presence: without foreign body Qualified Code(s): S61.411A - Laceration without foreign body of right hand, initial encounter
--- NOTE | 2020-06-12 14:10 | Hospitalist Progress Note ---
Date of Service June 12, 2020 Assessment & Plan (1) Wide-complex tachycardia: Supraventricular tachycardia with bifascicular block Recurrent Syncope secondary to above 05/15/20: ECHO: Mild concentric LVH. Left ventricle wall motion is normal. Left ventricle systolic function is normal. EF 55 to 60%. Mild mitral regurgitation. Grade 1 diastolic dysfunction. Aortic root size is normal. The proximal ascending aorta is mildly dilated with diameter of 3.9 cm. Doppler findings do not suggest pulmonary hypertension. Continue amiodarone drip Continue plan to switch to p.o. amiodarone tomorrow May possibly need ablation Metoprolol discontinued Plan to wean off of hydralazine as able Monitor electrolytes and replace as needed Appreciate cardiology input Continue to monitor on telemetry Right first Digit Laceration S/P Sutures Secondary to syncopal episode HTN Relatively low BP on presentation BP Variable Hydralazine, metoprolol on hold Continue losartan Monitor blood pressure Plan to wean off of hydralazine as able Hyperlipidemia on Lipitor DM Type II: Last A1c:7.2 on 05/15/20 ISS, basal Insulin, Accu checks, Diabetic diet H/O Nonobstructive CAD/ PVD H/O Aortic root/Ascending aorta dilatation Continue aspirin, statin REANNA on CPAP Abnormal thyroid function test Elevated TSH Normal Free T4 Advised to recheck thyroid function test as outpatient in 4 to 6 weeks DVT Px: Lovenox SQ Code Status Full Code Admission and Anticipated Discharge Date Admission Date: June 12, 2020 Subjective Patient is seen and examined at bedside States feeling better today Dizziness resolved Denies chest pain, palpitations, dyspnea, nausea, vomiting, abdominal pain On IV amiodarone drip Review of Systems Review of Systems: All systems reviewed & are unremarkable except as noted in HPI & below Physical Exam Physical Exam: Physical Exam: Vitals signs as noted above General Appearance:Obese, no apparent distress Head: normocephalic, Atraumatic Eyes: normal inspection, EOMI Neck: supple, Trachea midline Respiratory/Chest: Normal breath sounds, CTA Cardiovascular: S1, S2, No murmur Abdomen/GI:Soft, Non tender, Bowel sounds present Extremities/Musculoskelatal:normal inspection, no edema Neurologic/Psych:AAOX3, grossly no focal neurological deficits Skin: normal color, warm Results & Data Results & Data ([facility]) Vital Signs (Past 12 Hours) Vital Signs Temp Pulse Pulse Resp BP BP Pulse Ox 06/12/20 11:14 36.9 C 64 17 159/89 H 96 06/12/20 09:52 71 06/12/20 06:57 36.5 C 66 19 173/94 H 96 06/12/20 06:53 176/96 H 06/12/20 02:45 36.7 C 70 18 168/91 H 96 06/12/20 02:26 69 16 156/89 H 97 Laboratory Results Short CBC 06/11/20 06/12/20 Range/Units 23:20 05:19 WBC 9.03 9.55 (4.8-10.8) K/uL Hgb 13.5 L 12.9 L (14.0-18.0) g/dL Hct 40.4 L 39.4 L (42-52) % Plt Count 239 249 (130-400) K/uL BMP 06/11/20 06/12/20 23:20 05:19 Sodium 141 139 Potassium 3.8 3.8 Chloride 106 107 Carbon Dioxide 26 26 BUN 14 10 Creatinine 0.94 0.76 Glucose 131 H 120 H Calcium 9.1 8.9 Cardiac Enzymes 06/11/20 06/12/20 06/12/20 Range/Units 23:20 05:19 09:44 Total Creatine Kinase 96 (39-308) U/L Troponin I 0.021 0.056 H* 0.060 H* (0-0.045) ng/ml Liver Function 06/11/20 Range/Units 23:20 Total Bilirubin 0.5 (0.2-1) mg/dl AST 18 (15-37) U/L ALT 32 (12-78) U/L Alkaline Phosphatase 74 (45-117) U/L Albumin 3.5 (3.4-5.0) gm/dl
[2020-06-12] MEDS: LOSARTAN POTASSIUM 25 MG TAB PO SCH (15:23)
--- NOTE | 2020-06-12 17:37 | Communication Note ---
Date of Service: June 12, 2020 A lengthy discussion was had between myself, the patient's primary equipment operator wage hand Dr. Candelario and our electrophysiology colleague Dr. Mireles. Given his underlying conduction system disease there is a significant concern for bradycardia arrhythmia with continued treatment for his SVT. So we will proceed with dual-chamber permanent pacemaker placement tomorrow and then continue to treat with amiodarone and likely beta-lopez as well. The patient is in agreement with this plan. N.p.o. after midnight
[2020-06-12] MEDS: PANTOprazole 40 MG TAB PO SCH (20:17)
[2020-06-13] MEDS: AMIODARONE / D5W 360 MG/200 ML BAG IV SCH (05:31)
--- NOTE | 2020-06-13 05:54 | Electrocardiogram Report ---
Test Reason : Blood Pressure : / mmHG Vent. Rate : 179 BPM Atrial Rate : 178 BPM P-R Int : 000 ms QRS Dur : 138 ms QT Int : 282 ms P-R-T Axes : 000 -82 061 degrees QTc Int : 486 ms Supraventricular tachycardia Left axis deviation Right bundle branch block Minimal voltage criteria for LVH, may be normal variant Abnormal ECG When compared with ECG of 09-JUN-2020 03:37, Supraventricular tachycardia has replaced Sinus rhythm Vent. rate has increased BY 94 BPM Confirmed by Sixto Thomason ([id number]) on 06/13/2020 5:54:33 AM Referred By: REFERRED SELF Confirmed By:Sixto Thomason
--- NOTE | 2020-06-13 05:55 | Electrocardiogram Report ---
Test Reason : Blood Pressure : / mmHG Vent. Rate : 091 BPM Atrial Rate : 091 BPM P-R Int : 200 ms QRS Dur : 156 ms QT Int : 386 ms P-R-T Axes : 061 -68 060 degrees QTc Int : 474 ms Poor data quality, interpretation may be adversely affected Sinus rhythm with Premature ventricular complexes or Fusion complexes Right bundle branch block Left anterior fascicular block Bifascicular block Left ventricular hypertrophy with repolarization abnormality Abnormal ECG When compared with ECG of 11-JUN-2020 23:23, Sinus rhythm has replaced Supraventricular tachycardia Vent. rate has decreased BY 88 BPM Confirmed by Sixto Thomason ([id number]) on 06/13/2020 5:55:05 AM Referred By: REFERRED SELF Confirmed By:Sixto Thomason
[2020-06-13 06:34] LABS: Hematocrit (blood only) 38.5 % (42-52); Hemoglobin 12.9 g/dL (14.0-18.0); Mean Corpuscular Hemoglobin 28.4 pg (25-34); Mean Corpuscular Hgb Conc 33.5 g/dL (32-36); Mean Corpuscular Volume 84.6 fL (80-100); Mean Platelet Volume 9.6 fL (7.4-10.4); Platelet Count 216 K/uL (130-400); RDW Coefficient of Variation 14.9 % (11.5-14.5); Red Blood Count 4.55 M/uL (4.7-6.1); White Blood Count 8.55 K/uL (4.8-10.8)
[2020-06-13 06:53] LABS: BUN Creatinine Ratio 11.2 (10-20); Calcium 8.7 mg/dl (8.5-10.1); Creatinine Clr Calc Pharmacy 94.4 ml/min; Est GFR (African American) 101.2; Est GFR (Non-African American) 87.3; Magnesium 1.9 mg/dl (1.8-2.4); Potassium 3.8 mmol/L (3.5-5.1)
[2020-06-13] MEDS: INSULIN ASPART 100 UNITS/ML 3 ML PEN SC SCH ×4 (08:33→20:37)
[2020-06-13] MEDS: FLUTICASONE PROPIONATE NA SPR 16 GM BTL SCH (08:34)
[2020-06-13] MEDS: ATORVASTATIN 40 MG TAB PO SCH (08:35)
[2020-06-13] MEDS: PANTOprazole 40 MG TAB PO SCH ×2 (08:35→20:36)
[2020-06-13] MEDS: ASPIRIN 81 MG ECTAB PO SCH (08:35)
[2020-06-13] MEDS: ENOXAPARIN INJ 40 MG/0.4 ML SYR SQ SCH ×2 (08:36→09:03)
[2020-06-13] MEDS: LOSARTAN POTASSIUM 25 MG TAB PO SCH (08:36)
[2020-06-13] MEDS: INSULIN GLARGINE SOLOSTAR 100 UNITS/ML 3 ML PEN SC SCH (08:38)
--- NOTE | 2020-06-13 11:34 | Hospitalist Progress Note ---
Date of Service June 13, 2020 Assessment & Plan (1) Wide-complex tachycardia: Supraventricular tachycardia with bifascicular block Recurrent Syncope secondary to above 05/15/20: ECHO: Mild concentric LVH. Left ventricle wall motion is normal. Left ventricle systolic function is normal. EF 55 to 60%. Mild mitral regurgitation. Grade 1 diastolic dysfunction. Aortic root size is normal. The proximal ascending aorta is mildly dilated with diameter of 3.9 cm. Doppler findings do not suggest pulmonary hypertension. Continue amiodarone drip Director Of Patient Care recommendation appreciated Metoprolol discontinued Planning to wean off of hydralazine as able Monitor electrolytes and replace as needed Plan for dual-chamber pacemaker today Continue to monitor on telemetry Right first Digit Laceration S/P Sutures Secondary to syncopal episode Hypertension Relatively low BP on presentation BP Variable but consistently mildly elevated in the past 24 hours Hydralazine, metoprolol on hold Continue losartan Monitor blood pressure Plan to wean off of hydralazine as able Director Of Patient Care on board Hyperlipidemia on Lipitor DM Type II: Last A1c:7.2 on 05/15/20 ISS, basal Insulin, Accu checks, Diabetic diet H/O Nonobstructive CAD/ PVD H/O Aortic root/Ascending aorta dilatation Continue aspirin, statin REANNA Continue CPAP at bedtime Abnormal thyroid function test Elevated TSH Normal Free T4 Need to recheck thyroid function test as outpatient in 4 to 6 weeks DVT Px: Lovenox SQ Code Status Full Code Admission and Anticipated Discharge Date Admission Date: June 12, 2020 Subjective Patient seen and examined. Reported mild dizziness while standing talking to her roommate earlier but quickly resolved after he sat down Denies chest pain, palpitation, shortness of breath or dyspnea on exertion Denies nausea, vomiting, diarrhea, abdominal pain Physical Exam Constitutional: + well hydrated; no acute distress Eyes: PERRL, conjunctivae normal, anicteric sclerae ENMT: external ear and nose normal, oropharynx normal Respiratory: normal respiratory effort, lungs clear to auscultation Cardiovascular: Rate/Rhythm: regular rate and regular rhythm S1-S2 Gastrointestinal (Abdomen): normal bowel sounds, soft, nontender, no hepatosplenomegaly Musculoskeletal: no cyanosis or clubbing, extremities motor strength 5/5 No pedal edema Neurologic: PERRL, EOMI, accommodation nl, no face palsy, no dysarthria Psychiatric: A+Ox3, euthymic affect Results & Data Results & Data ([facility]) Vital Signs (Past 12 Hours) Vital Signs Temp Pulse Pulse Resp BP Pulse Ox 06/13/20 10:27 67 06/13/20 07:02 36.4 C L 58 L 20 176/91 H 93 06/13/20 04:18 36.7 C 65 18 168/84 H 96 06/13/20 00:00 70 Laboratory Results Laboratory Results - last 24 hr 06/12/20 06/12/20 06/13/20 16:02 20:16 05:50 WBC 8.55 RBC 4.55 L Hgb 12.9 L Hct 38.5 L MCV 84.6 MCH 28.4 MCHC 33.5 RDW Std Deviation 46.0 RDW Coeff of [place]igh 14.9 H Plt Count 216 MPV 9.6 Sodium Potassium Chloride Carbon Dioxide Anion Gap BUN Creatinine Est Cr Clr Drug Dosing Est GFR ( Amer) Est GFR (Non-Af Amer) BUN/Creatinine Ratio Glucose POC Glucose 113 H 167 H Calcium Magnesium 06/13/20 06/13/20 06/13/20 05:50 07:15 11:10 WBC RBC Hgb Hct MCV MCH MCHC RDW Std Deviation RDW Coeff of Kyleigh Plt Count MPV Sodium 138 Potassium 3.8 Chloride 104 Carbon Dioxide 27 Anion Gap 7.0 BUN 9 Creatinine 0.83 Est Cr Clr Drug Dosing 94.4 Est GFR ( Amer) 101.2 Est GFR (Non-Af Amer) 87.3 BUN/Creatinine Ratio 11.2 Glucose 132 H POC Glucose 136 H 146 H Calcium 8.7 Magnesium 1.9
--- NOTE | 2020-06-13 13:03 | Cardiology Progress Note ---
Date of Service June 13, 2020 Assessment & Plan (1) Syncope and collapse: (2) SVT (supraventricular tachycardia): (3) Laceration of right hand: (4) Acute hypotension: (5) Nonobstructive atherosclerosis of coronary artery: (6) REANNA on CPAP: (7) Hypertension: (8) HLD (hyperlipidemia): Unfortunately, he is experienced breakthrough SVT despite metoprolol. 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 For dual-chamber permanent pacemaker today. Continue IV amiodarone until device is placed. We will transition to oral in the a.m. Admission and Anticipated Discharge Date Admission Date: June 12, 2020 Subjective Patient seen and examined, chart reviewed. No complaints overnight. Did get a little lightheaded after standing for a while but otherwise feeling well. Denies chest pain, shortness of breath or palpitations. Telemetry reviewed: Normal sinus rhythm without further arrhythmias Review of Systems Review of Systems: All systems reviewed & are unremarkable except as noted in HPI & below Physical Exam Physical Exam: General: Awake, alert and oriented x 3. No acute distress. HEENT: Normocephalic, atraumatic. Pupils equal, round and reactive to light and accommodation. Extraocular muscles are intact. Anicteric sclera. Moist mucous membranes. Neck: No JVD. No bruit. Cardiovascular: Regular. Positive S-4. Normal S-1 and S-2. No S-3. No murmurs or rubs. Pulmonary: Clear to auscultation B/L. No rales, rhonchi or wheezing Abdomen: Bowel sounds x 4, soft. No rebound, guarding or tenderness. No organomegaly. Extremities: No clubbing, cyanosis or edema. +2 pedal pulses bilaterally. Skin: Warm and dry. Results & Data ([facility]) Vital Signs (Past 12 Hours) Vital Signs Temp Pulse Pulse Resp BP Pulse Ox 06/13/20 11:25 36.6 C 71 18 161/88 H 94 06/13/20 10:27 67 06/13/20 07:02 36.4 C L 58 L 20 176/91 H 93 06/13/20 04:18 36.7 C 65 18 168/84 H 96 (1) Laceration of right hand Encounter type: initial encounter Foreign body presence: without foreign body Qualified Code(s): S61.411A - Laceration without foreign body of right hand, initial encounter
--- NOTE | 2020-06-13 17:38 | History & Physical Bridge Note ---
Date of Service June 13, 2020 History & Physical Bridge Note I have examined the patient, reviewed the History & Physical and in the interval since the performance of the History & Physical I have noted the following changes of clinical significance: pt has evidence of tachybrady syndrome and syncope along with SVT. He is recommended a dual chamber pacemaker; risks discussed and consents signed.
--- NOTE | 2020-06-13 17:38 | Pre Anesthesia Assessment ---
Date of Service June 13, 2020 Pre Sedation Assessment Vital Signs Temp Pulse Pulse Resp BP Pulse Ox 06/13/20 16:34 76 17 170/91 H 96 06/13/20 15:52 36.5 C 76 18 152/79 H 96 06/13/20 11:25 36.6 C 71 18 161/88 H 94 06/13/20 10:27 67 06/13/20 07:02 36.4 C L 58 L 20 176/91 H 93 06/13/20 04:18 36.7 C 65 18 168/84 H 96 06/13/20 00:00 70 06/12/20 23:24 36.9 C 67 18 152/77 H 98 06/12/20 19:49 36.5 C 90 18 154/87 H 96 Cardiovascular + regular rhythm Respiratory normal respiratory effort, lungs clear to auscultation Pre-Sedation Airway Assessment Smoking Status: Former smoker Hx Sleep Apnea: No Short, Thick Neck: No Oral Cavity: + WNL Mallampati Class: III ASA: ASA3 NPO Status Date of Last Intake of Fluids: 06/13/20 Time of Last Intake of Fluids: 10:00 Date of Last Intake of Solid Food: 06/13/20 Time of Last Intake of Solid Foods: 10:00 Procedure Planning Contraindications for Sedation: none Current Medications Reviewed: Yes Notes The planned sedation has been discussed with the patient. Informed Consent was obtained. I have identified the patient, determined the appropriateness of sedation and have assessed the patient immediately prior to the procedure. All medicine(s) and interventions are by my order.
[2020-06-13] MEDS ORDERED: MIDAZOLAM HCL 5 MG/ML 1 ML VIAL ONE (17:51)
[2020-06-13] MEDS ORDERED: fentaNYL citrate 100 MCG/2 ML VIAL ONE (17:51)
[2020-06-13] MEDS ORDERED: BACITRACIN INJ 50,000 UNIT VIAL ONE (17:52)
[2020-06-13] MEDS ORDERED: LIDOCAINE HCL 1% 20 ML VIAL ONE (17:59)
[2020-06-13] MEDS ORDERED: BUPIVACAINE 0.5 % 5 MG/1 ML PF 10ML VIAL ONE (17:59)
[2020-06-13] MEDS ORDERED: diphenhydrAMINE 50 MG/ML VIAL ONE (18:29)
[2020-06-13] MEDS ORDERED: methylPREDNISolone 125 MG/2 ML VIAL ONE (18:29)
--- NOTE | 2020-06-13 19:18 | Post Anesthesia Assessment ---
Date of Service June 13, 2020 Post Sedation Assessment Vital Signs Temp Pulse Pulse Resp BP Pulse Ox 06/13/20 16:34 76 17 170/91 H 96 06/13/20 15:52 36.5 C 76 18 152/79 H 96 06/13/20 11:25 36.6 C 71 18 161/88 H 94 06/13/20 10:27 67 06/13/20 07:02 36.4 C L 58 L 20 176/91 H 93 06/13/20 04:18 36.7 C 65 18 168/84 H 96 06/13/20 00:00 70 06/12/20 23:24 36.9 C 67 18 152/77 H 98 06/12/20 19:49 36.5 C 90 18 154/87 H 96 Recovery Score Activity: Moves 4 extremities Respiration: Deep Breath/Cough Circulation: +/-20% PreAnes Value Consciousness: Fully Awake Oxygen Saturation: > 92% On Room Air Discharge Sedation Level of Care: Fast Track Phase II Post Sedation Plan On clinical assessment, the patient appears to have tolerated the sedation wi thout complications. Patient is recovering as anticipated. Patient will continue to be monitored by nursing and may be discharged when sedation discharge criteria are met per below protocol. Upon Completions of procedure up to 15 minutes continue every 5 minute vital signs and the P.A.R. score; then discharge to a Phase I or Fast Track to Phase II per the following guidelines: * Discharge Patient to appropriate Phase II area if PAR is 8 or greater or return to pre- procedure baseline. The post - procedure orders will be as directed. * If PAR score is less than 8 or not return to pre-procedure baseline then patient will follow Phase I monitoring till PAR is reached for Phase II. The Phase I may be done in procedure room or may call to secure a Phase I area. * If naloxone or flumazenil are used for reversal, hold in Phase I for continued monitoring from when last reversal dose was given for a minimum of 60 minutes or longer pending the nurse and/or physician discretion of patient condition before discharge to Phase II. Please call the Sedation Physician to re-evaluate and complete post-note for discharge to Phase II area. Do NOT discharge from procedure sedation or Phase 1 until post- sedation evaluation note is complete by procedure /sedation MD Sedation Discharge Instructions to be given to the patient at discharge to home.
--- NOTE | 2020-06-13 19:19 | Operative Report ---
Post Operative Report Pre & Post Diagnosis TBS Operation Date: 06/13/20 16:00 <No data on this case meets the specified criteria> I identified the patient and participated in the time-out.: Yes Procedure Operation Date: 06/13/20 16:00 Actual Procedures p Pacer with A/V Leads (Dual) - Alliosn Mireles DO Surgeon Allison Mireles, Girl Friday none Estimated Blood Loss 25 Findings Consistent with Post-Op Diagnosis Specimens none Description of Procedure see official report I attest to the content of the Intraoperative Record and any orders documented therein. Any exceptions are noted below.
[2020-06-13] MEDS: AMIODARONE 200 MG TAB PO SCH (20:36)
[2020-06-13] MEDS: ACETAMINOPHEN 325 MG TAB PO PRN (21:24)
[2020-06-14] MEDS: ACETAMINOPHEN 325 MG TAB PO PRN (03:31)
[2020-06-14 06:15] LABS: Hematocrit (blood only) 41.6 % (42-52); Hemoglobin 14.3 g/dL (14.0-18.0); Mean Corpuscular Hemoglobin 28.5 pg (25-34); Mean Corpuscular Hgb Conc 34.4 g/dL (32-36); Mean Platelet Volume 9.9 fL (7.4-10.4); Platelet Count 230 K/uL (130-400); RDW Coefficient of Variation 14.7 % (11.5-14.5); RDW Standard Deviation 44.3 fL (36.4-46.3); Red Blood Count 5.01 M/uL (4.7-6.1); White Blood Count 9.57 K/uL (4.8-10.8)
[2020-06-14 06:45] LABS: BUN Creatinine Ratio 13.4 (10-20); Creatinine Clr Calc Pharmacy 100.3 ml/min; Est GFR (African American) 103.8; Est GFR (Non-African American) 89.6; Potassium 3.9 mmol/L (3.5-5.1)
[2020-06-14] MEDS: AMIODARONE 200 MG TAB PO SCH (08:06)
[2020-06-14] MEDS: PANTOprazole 40 MG TAB PO SCH (08:07)
[2020-06-14] MEDS: ASPIRIN 81 MG ECTAB PO SCH (08:07)
[2020-06-14] MEDS: LOSARTAN POTASSIUM 25 MG TAB PO SCH (08:08)
[2020-06-14] MEDS: FLUTICASONE PROPIONATE NA SPR 16 GM BTL SCH (08:08)
[2020-06-14] MEDS: ATORVASTATIN 40 MG TAB PO SCH (08:08)
[2020-06-14] MEDS: INSULIN ASPART 100 UNITS/ML 3 ML PEN SC SCH ×2 (08:10→13:06)
[2020-06-14] MEDS ORDERED: METOPROLOL SUCC 50MG EXT REL TAB PO SCH (09:00)
--- NOTE | 2020-06-14 09:25 | XRay Report ---
XR chest 2V PA/lateral HISTORY: Status post pacemaker placement. COMPARISON: Chest 06/11/2020. FINDINGS: Status post left-sided dual-chamber pacemaker. The leads appear intact. No pneumothorax. Th e heart is normal in size. Trace bilateral pleural effusions. No evidence for pulmonary edema. No foc al lung consolidations to suggest pneumonia. IMPRESSION: 1. Status post left-sided dual-chamber pacemaker. No pneumothorax. 2. Trace bilateral pleural effusions. ACT 112: Negative or not required by law. Electronically signed by: Tavon Kelly M.D. 06/14/2020 9:24 AM
[2020-06-14] MEDS ORDERED: METOPROLOL SUCC 50MG EXT REL TAB PO STA (09:35)
--- NOTE | 2020-06-14 11:41 | Cardiology Progress Note ---
Date of Service June 14, 2020 Assessment & Plan (1) Syncope and collapse: (2) SVT (supraventricular tachycardia): (3) Laceration of right hand: (4) Acute hypotension: (5) Nonobstructive atherosclerosis of coronary artery: (6) REANNA on CPAP: (7) Hypertension: (8) HLD (hyperlipidemia): Patient presented with symptomatic SVT resulting in syncope. Amiodarone bolus and load was initiated but given his underlying conduction system disease dual-chamber permanent pacemaker placement was also performed to avoid tachybradycardia syndrome. Tolerated procedure well. Currently tolerating p.o. metoprolol and amiodarone, will increase metoprolol to 100 mg p.o. daily for discharge. Okay to DC to home from a cardiac standpoint. My office will call to arrange device clinic follow-up. Restrictions reviewed. Already scheduled to see Dr. Mcnair on the , recommend keeping this appointment. Admission and Anticipated Discharge Date Admission Date: June 12, 2020 Subjective Patient seen and examined, chart reviewed. No complaints overnight. Tolerated device placement well. Slight discomfort of pocket site resolved with Tylenol. Otherwise, denies chest pain, shortness of breath, palpitations, lightheadedness, dizziness or syncope. Telemetry reviewed: Normal sinus rhythm alternating with ventricular paced rhythm. Review of Systems Review of Systems: All systems reviewed & are unremarkable except as noted in HPI & below Physical Exam Physical Exam: General: Awake, alert and oriented x 3. No acute distress. HEENT: Normocephalic, atraumatic. Pupils equal, round and reactive to light and accommodation. Extraocular muscles are intact. Anicteric sclera. Moist mucous membranes. Neck: No JVD. No bruit. Cardiovascular: Regular. Positive S-4. Normal S-1 and S-2. No S-3. No murmurs or rubs. Pulmonary: Clear to auscultation B/L. No rales, rhonchi or wheezing Abdomen: Bowel sounds x 4, soft. No rebound, guarding or tenderness. No organomegaly. Extremities: No clubbing, cyanosis or edema. +2 pedal pulses bilaterally. Skin: Warm and dry. Results & Data ([facility]) Vital Signs (Past 12 Hours) Vital Signs Temp Pulse Pulse Resp BP Pulse Ox 06/14/20 11:31 36.5 C 79 18 159/69 H 96 02/18/21 09:52 37.0 C 80 18 168/88 H 97 06/14/20 08:00 72 06/14/20 07:48 37.0 C 80 18 168/88 H 97 06/14/20 04:00 69 20 176/97 H 95 06/14/20 03:02 69 18 96 (1) Laceration of right hand Encounter type: initial encounter Foreign body presence: without foreign body Qualified Code(s): S61.411A - Laceration without foreign body of right hand, initial encounter
--- NOTE | 2020-06-14 16:05 | Discharge Summary ---
Date of Service June 14, 2020 Admission HPI Per Admitting Provider History obtained from patient and records. Medical history significant for hypertension, hyperlipidemia, nonobstructive CAD, PVD (aortic root/ascending aorta dilatation), DM2 on oral medications, chronic anemia (baseline hemoglobin 12-13), REANNA on CPAP, past tobacco abuse. Recent overnight confinement June [id number] for near syncope secondary to SVT. Cardiology recommended increasing home beta-lopez dose to Toprol-XL 100 mg twice daily. Last night after coming off the toilet, patient noted lightheadedness symptoms followed by a syncopal event. Woke up a few moments later and would feel dizzy when trying to get up. Transient burning chest discomfort similar to reflux. Reflux not well controlled since GI provider decreased PPI from prior twice daily dosing to once daily as per patient. No cough, S OB symptoms. Patient denies headache or head trauma. Right hand wound later noted. Patient noted to be hypotensive upon arrival of EMS. Noted to be in SVT. Given 2 doses of adenosine in route to the hospital. Rhythm alternating between SVT and wide-complex tachycardia as per documentation. Cardiac rate 150s upon arrival at the ER. Amiodarone and phenylephrine infusions initiated at the ER SBP currently 150s. Cardiac rate 70s. Patient feeling more comfortable. 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 Admission Exam Per Admitting Provider GENERAL: Comfortable, pleasant, obese, no respiratory distress SKIN: Normal color, warm HEENT: Alopecia, [place] palpebral conjunctivae, no ptosis, dry buccal mucosa NECK : Supple, short neck, no tenderness CHEST : CTA, no tenderness HEART : RRR, no obvious murmurs ABDOMEN: Some distention, nontender EXTREMITIES : No LE swelling/tenderness, Band-Aid over right hand NEUROLOGIC : Coherent, no facial asymmetry, no other gross focality Principal Diagnosis Syncope Supraventricular tachycardia Status post pacemaker placement Discharge Exam Constitutional + well hydrated; no acute distress Eyes PERRL, conjunctivae normal, anicteric sclerae ENMT external ear and nose normal, oropharynx normal Respiratory normal respiratory effort, lungs clear to auscultation Cardiovascular Rate/Rhythm: regular rate and regular rhythm S1-S2 Chest (Breasts) Additional Comments: Dressing over left anterior chest wall at site of pacemaker placement with left upper extremity in sling Gastrointestinal (Abdomen) normal bowel sounds, soft, nontender, no hepatosplenomegaly Musculoskeletal no cyanosis or clubbing, extremities motor strength 5/5 Neurologic PERRL, EOMI, accommodation nl, no face palsy, no dysarthria Psychiatric A+Ox3, euthymic affect Discharge Data Allergies Allergy/AdvReac Type Severity Reaction Status Date / Time iodine Allergy Intermediate FULL BODY Verified 06/11/20 23:37 ITCHING shellfish derived Allergy Intermediate FULL BODY Verified 06/11/20 23:37 ITCHING IODINE BETADINE Allergy Intermediate FULL BODY Uncoded 06/11/20 23:37 ITCHING Consultations 06/12/20 00:12 ED Decision to Admit Stat 06/12/20 02:30 Consult Cardiology Routine Procedures Performed Operation Date: 06/13/20 16:00 Actual Procedures p Pacer with A/V Leads (Dual) - Allison Mireles DO Ordered Studies 06/13/20 17:33 CL Cath Imgs for PACS use only Routine Hospital Course (1) Wide-complex tachycardia: Supraventricular tachycardia with bifascicular block Recurrent Syncope secondary to above 05/15/20: ECHO: Mild concentric LVH. Left ventricle wall motion is normal. Left ventricle systolic function is normal. EF 55 to 60%. Mild mitral regurgitation. Grade 1 diastolic dysfunction. Aortic root size is normal. The proximal ascending aorta is mildly dilated with diameter of 3.9 cm. Doppler findings do not suggest pulmonary hypertension. Patient [facility]. Due to recurrence of symptoms despite medication adjustment and recent hospitalization, [facility] recommended dual-chamber pacemaker placement. Patient was started on IV amiodarone and pacemaker was placed yesterday. Now transition to p.o. amiodarone. Certain adjustments were made to medications including losartan reduced to 25 mg daily, metoprolol extended release change 200 mg daily, hydralazine discontinued Patient to follow-up with wound check at cardiology office next week. Advised to follow-up with PCP and cardiology outpatient Right first Digit Laceration S/P Sutures Secondary to syncopal episode Hypertension Hydralazine discontinued Losartan reduced to 25 mg daily as discussed above Continue Aldactone and hydrochlorothiazide Hyperlipidemia on Lipitor DM Type II: Last A1c:7.2 on 05/15/20 Continue Metformin and Ozempic H/O Nonobstructive CAD/ PVD H/O Aortic root/Ascending aorta dilatation Continue aspirin, statin REANNA Continue CPAP at bedtime Abnormal thyroid function test Elevated TSH Normal Free T4 Need to recheck thyroid function test as outpatient in 4 to 6 weeks Total Time Total Time Spent Total Time Spent (In Minutes): 45 Total Time Includes: Examination of the Patient, Discharge Planning, Medication Reconciliation (Educated patient on medication changes) and Communication With Other Providers Discharge Plan Discharge Items Patient Disposition: Home - Self-Care Reason For Visit: Dizziness and syncope Discharge Diagnosis: Syncope Supraventricular tachycardia Status post pacemaker placement Activity: As commented below Activity Comment: do not raise the left elbow over the left shoulder for 1 month Lifting: No more than 10 pounds Lifting Comment: do not lift more than 10 pounds with the left arm for 2 weeks Bathing: Keep incision dry Bathing Comment: keep dressing on and dry until wound check next week Non-emergency contact: Primary Care Provider and [facility] Call non-emergency contact if: you have any medication questions and your symptoms worsen Follow-up/Referrals: Juan Miguel Mcnair DO [[facility]] - (Date & Time 06/19/2020 2:30 PM Provider Juan Miguel Mcnair DO Department Cardiology, [facility] ) Humberto Reyes MD [Primary Care Provider] - (Date & Time 06/19/2020 3:00 PM Provider Humberto Reyes MD Department Family Practice [facility] ) Diet: Carb Consistent or DM2 and Heart Healthy Ambulatory Orders: Comprehensive Metabolic Panel (Routine) Timeframe: 1 Week Location: Determined by Patient Ordered By: Tiffany Chu Attending Provider Instructions: Mr. Joseph. You presented to the hospital after another episode of lightheadedness and loss of consciousness. You were evaluated and noted to have supraventricular tachycardia despite adjustment from your recent hospitalization. You were [facility] by [facility] and determined to require pacemaker which was placed yesterday. Certain adjustments were also made to your medications as listed in the medication list. (Metoprolol extended release changed to 100 mg daily, losartan reduced to 25 mg daily, amiodarone started, hydralazine discontinued] Please follow-up with the [facility] and your primary doctor Get lab work in a week as requested and follow-up results with the [facility] and your primary doctor It was a pleasure taking care of you Addtl Volunteer Specialist Provider Instructions: Device and wound check at [facility] next week Pending Studies at Discharge: No Stand-Alone Forms: [facility], Smoking Cessation Medications and DC Order Prescriptions: New acetaminophen 325 mg Tablet 650 mg PO Q4H PRN (Reason: pain) Qty: 50 RF: 0 amiodarone 200 mg Tablet 200 mg PO BIDM 30 Days Qty: 60 RF: 0 losartan 25 mg Tablet 25 mg PO QAM Qty: 30 RF: 0 metoprolol succinate 50 mg Tablet Extended Release 24 Hr 100 mg PO DAILY Qty: 60 RF: 0 Continued diclofenac sodium [Voltaren] 1 % Gel 2 g TOPICAL TID PRN (Reason: Pain) RF: 0 loratadine 10 mg Tablet 10 mg PO DAILY RF: 0 tamsulosin 0.4 mg capsule 0.4 mg PO DAILY RF: 0 valacyclovir 500 mg tablet 500 mg PO DAILY RF: 0 spironolactone 25 mg Tablet 25 mg PO QAM Qty: 30 RF: 0 glipizide 5 mg tablet 10 mg PO AMPM RF: 0 atorvastatin 40 mg tablet 40 mg PO DAILY RF: 0 hydrochlorothiazide 25 mg tablet 25 mg PO QDL RF: 0 metformin 1,000 mg tablet 1,000 mg PO BID RF: 0 aspirin 81 mg Tablet,Delayed Release (Dr/Ec) 81 mg PO DAILY RF: 0 omeprazole 20 mg capsule,delayed release(DR/EC) 20 mg PO HS RF: 0 omega 8-yrd-gnt-fish oil [Fish Oil] 360-1,200 mg Capsule,Delayed Release(Dr/Ec) 1 cap PO DAILY RF: 0 fluticasone propionate 50 mcg/actuation spray,suspension 2 spray INTRANASAL QAM RF: 0 Ozempic 1 mg/dose (2 mg/1.5 mL) pen injector 1 mg SUBCUT WK RF: 0 amoxicillin 500 mg PO TID RF: 0 Discontinued losartan 100 mg tablet 100 mg PO DAILY RF: 0 hydralazine 25 mg Tablet 25 mg PO TID Qty: 90 RF: 0 metoprolol tartrate 25 mg Tablet 25 mg PO Q6H PRN (Reason: palpitations) Qty: 60 RF: 0 Discharge Orders: Discharge Order (Routine); Ordered 06/14/20 Ordered By: Tiffany Virgen Admission Data Admit Date/Time: 06/12/20 01:15 Attending Provider: Tiffany Virgen I. Admit Provider: Fernando Watson Primary Care Provider: Humberto Reyes Other Providers: Fernando Watson ; Bennie Salamanca ; Manjeet Figueroa Other Interventions: Discharge Summary Assessment (RN) Last Done: 06/14/20 09:52
[2020-06-15] MEDS ORDERED: METOPROLOL SUCC 50MG EXT REL TAB PO SCH (09:00)
--- NOTE | 2020-06-18 09:03 | Operative Report (OR) ---
DATE OF OPERATION: 06/13/2020 PREOPERATIVE DIAGNOSIS: Tachybrady syndrome. POSTOPERATIVE DIAGNOSIS: Tachybrady syndrome. PROCEDURE: Dual chamber rate responsive permanent pacemaker under fluoroscopic guidance along with peripheral venogram. SURGEON: Allison Mireles DO. ASSISTANTS: None. ANESTHESIA: Monitored conscious sedation administered under my supervision by Juliette Godinez. Start time 1836, end time 190, a total of 4 mg of Versed, 100 mcg of fentanyl. INTRAVENOUS FLUIDS: 17 mL. ANTIBIOTICS: Two grams of Ancef. ADDITIONAL MEDS: 10 mL of contrast, 125 mg of Solu-Medrol and 25 mg of Benadryl. COMPLICATIONS: None. CONDITION: Stable. URINE OUTPUT: Not applicable. SPECIMENS: None. FINDINGS: See below. DRAINS: None. BLOOD LOSS: 30 mL INDICATIONS: This is a 74-year-old gentleman who has a past medical history for sinus bradycardia, syncope, first degree AV block, right bundle branch block, coronary artery disease, nonobstructive by prior catheterization, obstructive sleep apnea on CPAP, hypertension, hyperlipidemia, BPH and chronic heart failure with preserved ejection fraction, [place] Heart Association class 3. He was admitted to [facility] secondary to another syncopal episode. During this time on telemetry he was having recurrent SVT and was started on amiodarone. He was recommended a pacemaker prior to discharge given the tachybrady episodes. CONSENT: Consent was obtained prior to the patient going into electrophysiology lab. The patient was informed of the risks, benefits and alternatives to procedure. Risks include but not limited to sudden cardiac , cardiac arrhythmias, cerebrovascular accident, myocardial infarction, injury to the blood vessels, chamber of the heart, lung, bleeding, and infection. The patient understood these risks and agreed to the procedure as planned. Informed consent was obtained. DESCRIPTION OF THE PROCEDURE: The patient was brought into the electrophysiology lab in a fasting state. He was connected to continuous cardiac monitoring. A timeout was performed to ensure patient identity and procedure correctly. The patient was prepped and draped over the left infraclavicular space in normal surgical standard fashion. Monitored conscious sedation was given throughout the procedure for patient's comfort level. Bevier precautions maintained throughout the procedure. 10 mL of 1% lidocaine, bupivacaine mixture were given in the left deltopectoral groove. Incision was made in left deltopectoral groove. Blunt dissection performed down to identify the cephalic vein, but none could be identified, so peripheral venogram was performed to identify the axillary vein. Venous axillary access was obtained through a needlestick without any problems. A 7-Burmese sheath was inserted over the guidewire without any resistance. Dilator was removed and a second guidewire was inserted through the sheath to allow for retained venous access. Sheath was removed, flushed, reinserted over the dilator, then reinserted over one of the guidewires. Guidewire and dilator removed. The right ventricular lead was then advanced into right ventricle and positioned into the low right ventricular septum under fluoroscopic guidance. There was adequate pacing and sensing thresholds and no diaphragmatic stimulation with high output pacing. The 7-Burmese sheath was peeled away and lead was fixated to pectoralis muscle using 0 silk suture. A second 7-Burmese sheath was inserted over the retained guidewire without any resistance. Guidewire and dilator removed. The right atrial lead was then advanced into right atrium and positioned into the right atrial appendage under fluoroscopic guidance. There was adequate pacing and sensing thresholds. There was no diaphragmatic stimulation with high output pacing. The sheath was peeled away and lead was fixated to pectoralis muscle using 0 silk suture. A pacemaker pocket was created using blunt dissection over the pectoralis muscle within the pectoral fascia. The pocket was flushed with copious amounts of bacitracin saline wash and inspected for hemostasis. Pulse generator was then attached to leads making sure the pins were in appropriate position, passed set screw and set screws were all tightened. Pulse generator was then placed in a Tyrx pouch followed then by being placed in the pocket, making sure the leads were lying flat beneath the device. Incision was closed in 3-layer fashion with 2-0 Vicryl interrupted suture followed by 3-0 Vicryl interrupted suture, followed by a 4-0 Monocryl running stitch and Dermabond was applied. EQUIPMENT: 1. The pulse generator is a Medtronic Trina XT DR BALDEV Serna [id number], serial number [id number]. 2. Tyrx pouch, reference CMR M6133, lot number [id number], expiration 11/25/2020. 3. Right atrial lead Medtronic 5076-52 cm, serial number [id number]. 4. Right ventricular lead, Medtronic 5076-58 cm, serial number [id number]. INTRAOPERATIVE TESTIN. Right atrial lead: P waves 2.9 millivolts, impedance 556 ohms, threshold 0.5 volts at 0.5 milliseconds. 2. Right ventricular lead: R waves 6.2 millivolts, impedance 994 ohms, threshold 0.8 volts at 0.5 milliseconds. FINAL PARAMETERS THROUGH THE DEVICE: 1. Right atrial lead: P waves 1.9 millivolts, impedance 437 ohms, threshold 0.5 volts at 0.4 milliseconds. 2. Right ventricular lead: R waves 6.1 millivolts, impedance 760 ohms, threshold 0.75 volts at 0.4 milliseconds. FINAL PARAMETERS: MVP-R 60/130, right atrial amplitude 3.5 volts, pulse width 0.4 milliseconds, sensitivity 0.3 millivolts. Right ventricular amplitude 3.5 volts, pulse width 0.4 milliseconds, sensitivity 0.9 millivolts. IMPRESSION: Successful implantation of a dual chamber rate responsive permanent pacemaker under fluoroscopic guidance along with peripheral venogram secondary to tachybrady syndrome. PLAN: Monitor patient overnight. He can stop the amiodarone and start p.o. amiodarone as well as decrease some of his metoprolol. He is not allowed to lift the left elbow or left shoulder for 1 month. He cannot lift more than 10 pounds with the left arm for 2 weeks. He is to keep the dressing on and dry until his wound check next week. We will get a chest x-ray and EKG as well. I attest to the content of the Intraoperative Record and any orders documented therein. Any exception s are noted below.
== END 2020-06-14 13:51 | disposition home or self-care (01) | DRG 243 ==
LOC: ED 23:18 → SUATTDRO 06-12 01:15 → 2S 06-12 01:15

== ENCOUNTER 2022-11-11 14:06 | Inpatient (IN) ==
[2022-11-11 15:29] LABS: Basophils # (auto) 0.03 K/uL (0-0.2); Basophils % (auto) 0.4 %; Eosinophils # (auto) 0.21 K/uL (0-0.50); Eosinophils % (auto) 2.8 %; Hematocrit (blood only) 40.3 % (42.0-52.0); Hemoglobin 13.9 g/dl (14.0-18.0); Immature Granulocytes % (auto) 1.3 %; Lymphocytes # (auto) 1.94 K/uL (1.2-3.4); Lymphocytes % (auto) 25.7 %; Mean Corpuscular Hemoglobin 30.9 pg (25.0-34.0); Mean Corpuscular Hgb Conc 34.5 g/dL (32.0-36.0); Mean Corpuscular Volume 89.6 fL (80.0-100.0); Monocytes # (auto) 0.86 K/uL (0.11-0.59); Monocytes % (auto) 11.4 %; Neutrophils % (auto) 58.4 %; Platelet Count 214 K/uL (130-400); RDW Coefficient of Variation 12.5 % (11.5-14.5); White Blood Count 7.54 K/ul (4.8-10.8)
--- NOTE | 2022-11-11 15:36 | Electrocardiogram Report ---
Test Reason : Blood Pressure : / mmHG Vent. Rate : 084 BPM Atrial Rate : 084 BPM P-R Int : 264 ms QRS Dur : 164 ms QT Int : 442 ms P-R-T Axes : -04 -64 072 degrees QTc Int : 522 ms Atrial-paced rhythm with prolonged AV conduction Right bundle branch block Left anterior fascicular block Bifascicular block Left ventricular hypertrophy with repolarization abnormality ( R in aVL ) Cannot rule out Septal infarct (cited on or before 07-FEB-2022) Abnormal ECG When compared with ECG of 07-FEB-2022 15:33, Questionable change in initial forces of Septal leads Confirmed by Mitchell Mukherjee ([id number]) on 11/11/2022 3:36:26 PM Referred By: Confirmed By:Mitchell Mukherjee
[2022-11-11 15:46] LABS: Albumin Globulin Ratio 1.7 (0.9-2); Albumin Level 4.5 gm/dl (3.4-5.0); BUN Creatinine Ratio 13.6 (10-20); Bilirubin,Total 0.8 mg/dl (0.2-1.0); Calcium 9.4 mg/dl (8.6-10.3); Creatinine Clr Calc Pharmacy 126.7 ml/min; Est GFR (Non-African American) 98.3 ml/min; Globulin 2.6 gm/dl (2.5-4.0); Potassium 3.5 mmol/L (3.5-5.1); Total Protein 7.1 gm/dl (6.0-8.3)
--- NOTE | 2022-11-11 16:21 | Emergency Department Note ---
Impression & Plan Ventricular tachycardia ADMIT ED Provider Note HPI: The patient is a very pleasant 77-year-old gentleman with history of hypertension, hyperlipidemia, history of SVT status post pacemaker placement in 2020, presents to the emergency department with a chief complaint of multiple presyncopal episodes over about the past 3 days. Patient states that his first episode was on Thursday, states that he had a sensation of lightheadedness and as if he was going to pass out, patient states that he had to stabilize himself against a door when he was shopping in a store and this episode resolved within about 30 seconds. Patient states that he has had about 5 other episodes since that initial episode on Thursday where he felt as if he was going to pass out but he has not actually had a syncopal event to this point. Patient states each episode seems to resolve in about 30 seconds. Patient denies any chest pain with these episodes, on arrival here to the ED the patient is hemodynamically stable, blood pressure is 132/76, pulse is within normal limits, patient is saturating well on room air on arrival. ROS: - Per HPI Differential Diagnosis: SVT/arrhythmia resulting in presyncope, atrial fibrillation with RVR, ventricular tachycardia, orthostatic hypotension, vasovagal presyncope, ACS, PE, amongst other potential pathologies. *Outpatient medications and allergy history reviewed. *Pertinent external medical records reviewed. PE: General: Alert HEENT: Normocephalic, trachea midline Eyes: Extraocular eye movement is intact, no scleral erythema Pulmonary: Clear to auscultation bilaterally, no wheezing Cardio: Regular rate and rhythm GI: Abdomen is soft to palpation : No suprapubic tenderness MSK: No evidence of trauma or malformation of the extremities, no edema Skin: No evidence of rash Neuro: Alert, no focal deficits Psychiatric: Cooperative prosthetic technician: (As interpreted by myself): - An order was placed for continuous cardiac monitoring - Patient was noted to be in paced rhythm with a rate of 95 EKG: (As interpreted by myself): Rate: 84 Rhythm: Atrial paced rhythm Intervals: WI 264 ms, QRS 164 ms, QTc [address] changes: No ST elevation Time: 1450 Medical Decision Making: Shortly after the patient arrived IV was established and lab work obtained, patient was placed on director of cardiac rehabilitation after my assessment. Lab work shows no leukocytosis, hemoglobin is stable at 13.9, platelet count is within normal l imits, CMP obtained does not show any critical electrolyte abnormalities, magnesium and potassium are within normal limits, potassium is lower than would be preferred at 3.5 and therefore patient was ordered for oral repletion with goal to be near 4.0. Magnesium is within normal limits at 2.0, no evidence of acute kidney injury, troponin is negative, BNP is within normal limits. EKG reviewed by myself shows evidence of atrial paced rhythm, there is some QTc prolongation of 522 ms, no acute ischemic changes are noted. While the patient was being maintained on director of cardiac rehabilitation he had an episode of approximately 60 sec wide-complex tachycardia consistent with likely ventricular tachycardia. This episode did spontaneously resolve however the patient stated he was symptomatic and felt a presyncopal sensation when this was occurring. I do therefore believe this is likely the source of his presyncopal events. Chest x- ray per my interpretation does not show any evidence of any acute abnormalities. CT scan of the head is negative for any acute process. I did discuss the patient's presentation and this episode on telemetry with on- call cardiology, Dr. Brown, recommends at this time avoiding amiodarone bolus and drip as the patient did have QTc prolongation on EKG. He prefers admission at this point to the hospitalist service and cardiology consultation so that the computer security specialist can come up with a plan for the patient's medications. At this time he just recommends that we maintain the patient on the monitor and admit to the hospitalist service. Case was then discussed with the on-call hospitalist, Dr. Hernandez, and the patient was placed for admission in stable condition. Consultants: -Cardiology, Dr. Brown -Hospitalist, Dr. Hernandez Disposition discussion held by myself with: Patient and son at the bedside * CRITICAL CARE TIME: ( 33 ) minutes -Interpretation of diagnostic studies including EKG and sisal operator showing evidence of tachyarrhythmia/ventricular tachycardia, discussion with cardiology and hospitalist service and arrangement of admission Diagnosis: 1. Wide-complex tachycardia 2. Presyncopal events 3. History of SVT status post pacemaker Disposition: Admission Samson Denise DO Emergency Medicine Past Med/Surg History Medical History Ascending aorta dilatation pt unaware Diabetes mellitus, type II GERD (gastroesophageal reflux disease) HLD (hyperlipidemia) Hx of cold sores Hypertension Hypothyroidism Kidney stones hx of Neuropathy right leg Nonobstructive atherosclerosis of coronary artery follows with Dr. Candelario REANNA on CPAP Pacemaker Medtronic > placed for SVT > placed in May 2020 > last checked over phone approx September 2021 Surgical History H/O cardiac catheterization 2019 > no stents History of appendectomy History of arthroscopy right knee ACL History of colonoscopy History of cystoscopy History of esophagogastroduodenoscopy (EGD) History of partial colectomy pre-cancerous area removed History of repair of rotator cuff bilat History of tonsillectomy Hx of left cataract extraction Hx of nasal septoplasty Hx of surgical procedure right biceps tendon repair S/p nephrectomy right > post trampoline accident age 19 Family History Mother Colorectal cancer Other Lung cancer Social History Smoking Status: Never smoker Tobacco Type: Cigarettes Second Hand Exposure: No; Do You Dip or Chew Tobacco: No (hx of 20 yrs ago); Hx Alcohol Use: Yes Alcohol Intake Frequency: 2-4 x/Month Hx Substance Use: No Preferred Language: [place] Communication Ability: Effective Archery Equipment Hay Sorter Required: No Beliefs That Will Affect Care: None Current Living Situation: Family Feels Safe at Home: Yes Assistive Devices: Cane, Glasses and Hearing Aid - Bilateral Allergies Allergies Allergy/AdvReac Type Severity Reaction Status Date / Time iodine Allergy Intermediate FULL BODY Verified 11/11/22 16:48 ITCHING povidone-iodine Allergy Intermediate Rash Verified 11/11/22 16:48 [From Betadine] shellfish derived Allergy Intermediate FULL BODY Verified 11/11/22 16:48 ITCHING Home Meds Home Medications Medication Instructions Recorded Confirmed aspirin 81 mg tablet,delayed 81 mg PO HS 08/13/19 11/11/22 release atorvastatin 40 mg tablet 40 mg PO QAM 08/13/19 11/11/22 fluticasone propionate 50 2 spray intranasal QAM 08/13/19 11/11/22 mcg/actuation nasal spray,suspension glipizide 5 mg tablet 10 mg PO AMPM 08/13/19 11/11/22 metformin 1,000 mg tablet 1,000 mg PO BID 08/13/19 11/11/22 omega-3 360 mq-oix-hqv-fish oil 1 cap PO TIDM 08/13/19 11/11/22 1,200 mg capsule,delayed release (Fish Oil) omeprazole 20 mg capsule,delayed 20 mg PO BID 08/13/19 11/11/22 release semaglutide 1 mg/dose (2 mg/1.5 2 mg subcut WK 08/13/19 11/11/22 mL) subcutaneous pen injector (Ozempic) valacyclovir 500 mg tablet 500 mg PO PM 05/14/20 11/11/22 amiodarone 200 mg tablet 200 mg PO QAM 06/24/20 11/11/22 cetirizine 10 mg tablet 10 mg PO QAM 06/24/20 11/11/22 losartan 50 mg tablet 50 mg PO BID 02/05/21 11/11/22 tadalafil 5 mg tablet 5 mg PO DAILY 02/05/21 11/11/22 levothyroxine 88 mcg tablet 88 mcg PO QAM 12/03/21 11/11/22 amoxicillin 875 mg-potassium 1 tab PO BID 11/11/22 11/11/22 clavulanate 125 mg tablet carvedilol 25 mg tablet 25 mg PO BID 11/11/22 11/11/22 cholecalciferol (vitamin D3) 50 50 mcg PO DAILY 11/11/22 11/11/22 mcg (2,000 unit) capsule (Vitamin D3) famotidine 20 mg tablet 20 mg PO DAILY 11/11/22 11/11/22 fluticasone fur. 100 mcg-umeclid 1 inh inhalation DAILY 11/11/22 11/11/22 62.5 mcg-vilant 25 mcg inhalat.powder (Trelegy Ellipta) furosemide 40 mg tablet (Lasix) 40 mg PO DAILY 11/11/22 11/11/22 ipratropium bromide 21 mcg (0.03 2 spray intranasal TID 11/11/22 11/11/22 %) nasal spray oxycodone-acetaminophen 5 mg-325 1 tab PO BID PRN Pain, Severe 11/11/22 11/11/22 mg tablet tamsulosin 0.4 mg capsule (Flomax) 0.4 mg PO DAILY 11/11/22 11/11/22 verapamil 180 mg 24 hr 180 mg PO QAM 11/11/22 11/11/22 capsule,extended release wheat dextrin 3 gram/4 gram oral 1 packet PO DAILY 11/11/22 11/11/22 powder (Benefiber Sugar Free (dextrin)) Previous Rx's Medication Instructions Recorded acetaminophen 325 mg tablet 650 mg PO Q4H PRN pain #50 tabs 06/14/20 Results & Data (ED) Vital Signs Vital Signs - 24 hr 11/11/22 14:08 11/11/22 16:35 11/11/22 16:42 Temperature 36.6 C Temperature Source Temporal Artery Scan Pulse Rate 97 H 72 132 H Respiratory Rate 18 Respiratory Effort / Characteristics Non-Labored Spontaneous Respiratory Depth Normal Respiratory Pattern Regular Blood Pressure 132/76 Blood Pressure Mean 94 Blood Pressure Position Sitting Pulse Oximetry 97 Oxygen Delivery Method Room Air Sepsis Recent Fever Within 48 Hours No Sepsis New/Unexplained Change in Mental Status No Sepsis Action Taken by Nursing No Action Required 11/11/22 16:47 Temperature Temperature Source Pulse Rate 70 Respiratory Rate Respiratory Effort / Characteristics Respiratory Depth Respiratory Pattern Blood Pressure Blood Pressure Mean Blood Pressure Position Pulse Oximetry Oxygen Delivery Method Sepsis Recent Fever Within 48 Hours Sepsis New/Unexplained Change in Mental Status Sepsis Action Taken by Nursing Laboratory Data 11/11/22 14:55 11/11/22 14:55 Lab Results 11/11/22 11/11/22 11/11/22 Range/Units 14:55 14:55 14:55 WBC 7.54 (4.8-10.8) K/ul RBC 4.50 L (4.70-6.10) M/uL Hgb 13.9 L (14.0-18.0) g/dl Hct 40.3 L (42.0-52.0) % MCV 89.6 (80.0-100.0) fL MCH 30.9 (25.0-34.0) pg MCHC 34.5 (32.0-36.0) g/dL RDW Std Deviation 41.0 (36.4-46.3) fL RDW Coeff of Kyleigh 12.5 (11.5-14.5) % Plt Count 214 (130-400) K/uL MPV 10.0 (9.4-12.4) fL Immature Gran % (Auto) 1.3 % Neut % (Auto) 58.4 % Lymph % (Auto) 25.7 % Nolan % (Auto) 11.4 % Eos % (Auto) 2.8 % Baso % (Auto) 0.4 % Neut # (Auto) 4.40 (1.40-6.50) K/uL Lymph # (Auto) 1.94 (1.2-3.4) K/uL Nolan # (Auto) 0.86 H (0.11-0.59) K/uL Eos # (Auto) 0.21 (0-0.50) K/uL Baso # (Auto) 0.03 (0-0.2) K/uL Immature Gran # (Auto) 0.10 (0.01-0.20) K/uL Sodium 136 (136-145) mmol/L Potassium 3.5 (3.5-5.1) mmol/L Chloride 99 (98-107) mmol/L Carbon Dioxide 29 (21-32) mmol/L Anion Gap 8 (3-11) BUN 8 (6-23) mg/dl Creatinine 0.59 L (0.6-1.4) mg/dl Est Cr Clr Drug Dosing 126.7 ml/min Est GFR ( Amer) 114.0 ml/min Est GFR (Non-Af Amer) 98.3 ml/min BUN/Creatinine Ratio 13.6 (10-20) Glucose 113 H (70-99(Fasting)) mg/dl Calcium 9.4 (8.6-10.3) mg/dl Magnesium 2.0 (1.7-2.4) mg/dl Total Bilirubin 0.8 (0.2-1.0) mg/dl AST 16 (13-39) U/L ALT 15 (7-52) U/L Alkaline Phosphatase 71 (34-104) U/L Troponin I High Sens 5.1 (0-20) pg/ml B-Natriuretic Peptide 34 (0-100) pg/ml Total Protein 7.1 (6.0-8.3) gm/dl Albumin 4.5 (3.4-5.0) gm/dl Globulin 2.6 (2.5-4.0) gm/dl Albumin/Globulin Ratio 1.7 (0.9-2) TSH (0.300-4.500) uIu/ml SARS-CoV-2, RNA, NAAT (NEGATIVE) 11/11/22 11/11/22 Range/Units 14:55 17:18 WBC (4.8-10.8) K/ul RBC (4.70-6.10) M/uL Hgb (14.0-18.0) g/dl Hct (42.0-52.0) % MCV (80.0-100.0) fL MCH (25.0-34.0) pg MCHC (32.0-36.0) g/dL RDW Std Deviation (36.4-46.3) fL RDW Coeff of Kyleigh (11.5-14.5) % Plt Count (130-400) K/uL MPV (9.4-12.4) fL Immature Gran % (Auto) % Neut % (Auto) % Lymph % (Auto) % Nolan % (Auto) % Eos % (Auto) % Baso % (Auto) % Neut # (Auto) (1.40-6.50) K/uL Lymph # (Auto) (1.2-3.4) K/uL Nolan # (Auto) (0.11-0.59) K/uL Eos # (Auto) (0-0.50) K/uL Baso # (Auto) (0-0.2) K/uL Immature Gran # (Auto) (0.01-0.20) K/uL Sodium (136-145) mmol/L Potassium (3.5-5.1) mmol/L Chloride (98-107) mmol/L Carbon Dioxide (21-32) mmol/L Anion Gap (3-11) BUN (6-23) mg/dl Creatinine (0.6-1.4) mg/dl Est Cr Clr Drug Dosing ml/min Est GFR ( Amer) ml/min Est GFR (Non-Af Amer) ml/min BUN/Creatinine Ratio (10-20) Glucose (70-99(Fasting)) mg/dl Calcium (8.6-10.3) mg/dl Magnesium (1.7-2.4) mg/dl Total Bilirubin (0.2-1.0) mg/dl AST (13-39) U/L ALT (7-52) U/L Alkaline Phosphatase (34-104) U/L Troponin I High Sens (0-20) pg/ml B-Natriuretic Peptide (0-100) pg/ml Total Protein (6.0-8.3) gm/dl Albumin (3.4-5.0) gm/dl Globulin (2.5-4.0) gm/dl Albumin/Globulin Ratio (0.9-2) TSH 2.095 (0.300-4.500) uIu/ml SARS-CoV-2, RNA, NAAT NEGATIVE (NEGATIVE) Imaging Data Radiologist's Impression: Head CT 11/11/22 16:14 CT SCAN OF THE BRAIN WITHOUT IV CONTRAST CLINICAL HISTORY: Dizziness. Syncope. COMPARISON STUDY: CT of the brain dated 05/14/2020. TECHNIQUE: Unenhanced axial CT scan of the brain is performed from the vertex to the skull base. A dose lowering technique was utilized adhering to the principles of ALARA. CT DOSE: 547.75 mGy.cm FINDINGS: Brain parenchyma: There is age-related involutional change noting mild subcortical and periventricular microangiopathic disease. There is no hemorrhage , mass effect, or evidence of acute territorial ischemia by CT criteria. Villagomez- white matter differentiation is preserved. No extra-axial fluid collection is seen. Ventricles, sulci, cisterns: Prominent secondary to involutional change. Intracranial vasculature: There is atherosclerotic calcification of the cavernous carotid and vertebral arteries. Calvarium: Unremarkable. Sinuses and mastoids: The visualized paranasal sinuses are clear. The mastoid air cells are well pneumatized. Orbits: The bony orbits are grossly intact. There are bilateral ocular lens implants. IMPRESSION: There is no hemorrhage, mass effect, or evidence of acute territorial ischemia by CT criteria. ACT 112: Negative or not required by law. Electronically signed by: Christopher Miguel M.D. 11/11/2022 6:28 PM Chest X-Ray 11/11/22 16:16 XR chest 1V portable CLINICAL HISTORY: near syncope COMPARISON STUDY: Chest radiograph February 07, 2022. FINDINGS: There is no pneumothorax or pleural effusion. Dual lead left subclavian pacer is in place. Mild cardiomegaly is unchanged. There is no evidence for pulmonary edema. No consolidation is present. The appearance of the chest is unchanged. IMPRESSION: No acute cardiopulmonary findings. No change in appearance of the chest. ACT 112: Negative or not required by law. Electronically signed by: Gian Henson M.D. 11/11/2022 5:21 PM Discharge Plan Visit Data Chief Complaint: Neuro Symptoms/Deficit Stated Complaint: LIGHTEHEADED, CLOUDY VISION, ALMOST FAINT EPISODES ED Provider: Samson Denise Discharge Problem: Ventricular tachycardia Forms Stand Alone Forms: My [facility] Prescriptions Prescriptions: No Action valacyclovir 500 mg tablet 500 mg PO PM acetaminophen 325 mg Tablet 650 mg PO Q4H PRN (Reason: pain) Qty: 50 0RF glipizide 5 mg tablet 10 mg PO AMPM atorvastatin 40 mg tablet 40 mg PO QAM metformin 1,000 mg tablet 1,000 mg PO BID aspirin 81 mg Tablet,Delayed Release (Dr/Ec) 81 mg PO HS omeprazole 20 mg capsule,delayed release(DR/EC) 20 mg PO BID omega 9-zvj-thd-fish oil [Fish Oil] 360-1,200 mg Capsule,Delayed Release(Dr/Ec) 1 cap PO TIDM fluticasone propionate 50 mcg/actuation spray,suspension 2 spray INTRANASAL QAM Ozempic 1 mg/dose (2 mg/1.5 mL) pen injector 2 mg SUBCUT WK Rx Instructions: TAKE THIS MED EVERY thursday amiodarone 200 mg tablet 200 mg PO QAM cetirizine 10 mg Tablet 10 mg PO QAM losartan 50 mg Tablet 50 mg PO BID tadalafil 5 mg Tablet 5 mg PO DAILY levothyroxine 88 mcg Tablet 88 mcg PO QAM furosemide [Lasix] 40 mg Tablet 40 mg PO DAILY carvedilol 25 mg tablet 25 mg PO BID verapamil 180 mg capsule,ext rel. pellets 24 hr 180 mg PO QAM oxycodone-acetaminophen 5-325 mg tablet 1 tab PO BID PRN (Reason: Pain, Severe) famotidine 20 mg Tablet 20 mg PO DAILY tamsulosin [Flomax] 0.4 mg Capsule 0.4 mg PO DAILY ipratropium bromide 21 mcg (0.03 %) spray,non-aerosol 2 spray INTRANASAL TID amoxicillin-pot clavulanate 875-125 mg tablet 1 tab PO BID Rx Instructions: STARTED 11/09/22 FOR 10 DAYS, PER PT "THE ORAL SURGEON IS ADDING 5 MORE DAYS TO SCRIPT". cholecalciferol (vitamin D3) [Vitamin D3] 50 mcg (2,000 unit) Capsule 50 mcg PO DAILY Benefiber Sugar Free (dextrin) 3 gram/4 gram Powder 1 packet PO DAILY Rx Instructions: mix into at least 4 oz water or juice before administering Trelegy Ellipta 100-62.5-25 mcg Blister With Device 1 inh INHALATION DAILY Referrals Referrals: Tip Oliver DO [Primary Care Provider] -
[2022-11-11] MEDS ORDERED: AMIODARONE / D5W 150 MG/100 ML BAG IV STA (16:45)
[2022-11-11] MEDS ORDERED: 0.2 MICRON FILTER SET 1 EACH IV STA (16:45)
[2022-11-11] MEDS ORDERED: STAT IV Infusion **Titration per Protocol STA (16:45)
[2022-11-11] MEDS ORDERED: AMIODARONE IV BOLUS & DRIP IV STA (16:45)
[2022-11-11] MEDS ORDERED: AMIODARONE / D5W 360 MG/200 ML BAG IV ONE (16:55)
[2022-11-11 16:57] LABS: Troponin I High Sensitivity 5.1 pg/ml (0-20)
[2022-11-11] MEDS ORDERED: POTASSIUM CHLORIDE CRTAB 20 MEQ TABCR PO STA ×2 (17:05→20:33)
--- NOTE | 2022-11-11 17:22 | XRay Report ---
XR chest 1V portable CLINICAL HISTORY: near syncope COMPARISON STUDY: Chest radiograph February 07, 2022. FINDINGS: There is no pneumothorax or pleural effusion. Dual lead left subclavian pacer is in place. Mild cardiomegaly is unchanged. There is no evidence for pulmonary edema. No consolidation is present . The appearance of the chest is unchanged. IMPRESSION: No acute cardiopulmonary findings. No change in appearance of the chest. ACT 112: Negative or not required by law. Electronically signed by: Gian Henson M.D. 11/11/2022 5:21 PM
--- NOTE | 2022-11-11 17:24 | Cardiology Consultation ---
Date of Consultation November 11, 2022 Assessment & Plan (1) Near syncope: (2) Wide-complex tachycardia: (3) REANNA on CPAP: (4) Nonobstructive atherosclerosis of coronary artery: Plan Patient is a 77-year-old male with complex history past tachyarrhythmias and near syncope. Now presents with sudden onset multiple episodes since Thursday. Currently being treating for dental abscess but suffered near syncopal event earlier today. While in ER had extended episode of wide-complex tachycardia question SVT versus ventricular tachycardia EKG with atrial pacing, biventricular heart block and prolonged QT Recommendations: Patient to be admitted and maintained on telemetry. Would not initiate antiarrhythmic therapy unless sustained events occur at this time. Interrogate pacemaker in a.m. for full measure recent event Echocardiogram to assess LV systolic function in the setting of arrhythmias Continue prehospital medication History of Present Illness History of Present Illness Patient is a 77-year-old male with underlying cardiac history as per outpatient note of 08/01/2022 1. Long-standing labile, [id number] hypertension, hypertensive heart disease 2. Sensed atrial and ventricular ectopy 3. Symptomatic supraventricular tachycardia, treated with amiodarone initiated 05/2020 then discontinued 02/2022 due to associated symptoms gait instability and weakness 4. Bifascicular bundle branch block 5. Recurrent, unexplained syncopal episodes 6. Status post dual chamber Medtronic permanent pacemaker implantation, 06/13/2020 7. ASCVD 1. Abnormal exercise nuclear stress testing in 2011, indicative of inferior wall ischemia with diagnostic cardiac catheterization at [facility] on 12/31/[address] Brown revealing no significant obstructive coronary artery disease. 2. Repeat cardiac catheterization 01/[address] Brown showed luminal irregularities in the proximal LAD otherwise no obstructive CAD noted. 8. Chart history of an enlarged aortic root and ascending aorta 9. 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 10. Dyslipidemia 11. Type 2 diabetes mellitus 12. Iron deficiency anemia 13. Obstructive sleep apnea, CPAP Patient presents now noting symptoms of acute dizziness and near syncope multiple, approximately 6 episodes over the past 2 to 3 days. Episodes is described as acute lightheadedness he is about to fall lasting 15 to 30 seconds. Profound episode today went to ER presentation. He is being treated acutely for a dental abscess and is on antibiotic therapy with Augmentin. In the process of having dental extractions done prior to planned hip replacement No chest pains no complete loss of consciousness mild headache this morning no visual changes. Notes an episode of very dark tarry stools on Thursday but no overt bleeding no changes on medications other than above While in ER had approximately 32nd episode of wide-complex tachycardia rate 130 bpm patient is aware of the rhythm with dizziness when occurring Allergies Allergy/AdvReac Type Severity Reaction Status Date / Time iodine Allergy Intermediate FULL BODY Verified 11/11/22 16:48 ITCHING povidone-iodine Allergy Intermediate Rash Verified 11/11/22 16:48 [From Betadine] shellfish derived Allergy Intermediate FULL BODY Verified 11/11/22 16:48 ITCHING Home Medications Medication Instructions Recorded Confirmed Type aspirin 81 mg tablet,delayed 81 mg PO HS 08/13/19 11/11/22 History release atorvastatin 40 mg tablet 40 mg PO QAM 08/13/19 11/11/22 History fluticasone propionate 50 2 spray intranasal QAM 08/13/19 11/11/22 History mcg/actuation nasal spray,suspension glipizide 5 mg tablet 10 mg PO AMPM 08/13/19 11/11/22 History metformin 1,000 mg tablet 1,000 mg PO BID 08/13/19 11/11/22 History omega-3 360 jq-hhs-lon-fish oil 1 cap PO TIDM 08/13/19 11/11/22 History 1,200 mg capsule,delayed release (Fish Oil) omeprazole 20 mg capsule,delayed 20 mg PO BID 08/13/19 11/11/22 History release semaglutide 1 mg/dose (2 mg/1.5 2 mg subcut WK 08/13/19 11/11/22 History mL) subcutaneous pen injector (Ozempic) valacyclovir 500 mg tablet 500 mg PO PM 05/14/20 11/11/22 History acetaminophen 325 mg tablet 650 mg PO Q4H PRN pain #50 tabs 06/14/20 11/11/22 Rx amiodarone 200 mg tablet 200 mg PO QAM 06/24/20 11/11/22 History cetirizine 10 mg tablet 10 mg PO QAM 06/24/20 11/11/22 History losartan 50 mg tablet 50 mg PO BID 02/05/21 11/11/22 History tadalafil 5 mg tablet 5 mg PO DAILY 02/05/21 11/11/22 History levothyroxine 88 mcg tablet 88 mcg PO QAM 12/03/21 11/11/22 History amoxicillin 875 mg-potassium 1 tab PO BID 11/11/22 11/11/22 History clavulanate 125 mg tablet carvedilol 25 mg tablet 25 mg PO BID 11/11/22 11/11/22 History cholecalciferol (vitamin D3) 50 50 mcg PO DAILY 11/11/22 11/11/22 History mcg (2,000 unit) capsule (Vitamin D3) famotidine 20 mg tablet 20 mg PO DAILY 11/11/22 11/11/22 History fluticasone fur. 100 mcg-umeclid 1 inh inhalation DAILY 11/11/22 11/11/22 History 62.5 mcg-vilant 25 mcg inhalat.powder (Trelegy Ellipta) furosemide 40 mg tablet (Lasix) 40 mg PO DAILY 11/11/22 11/11/22 History ipratropium bromide 21 mcg (0.03 2 spray intranasal TID 11/11/22 11/11/22 History %) nasal spray oxycodone-acetaminophen 5 mg-325 1 tab PO BID PRN Pain, Severe 11/11/22 11/11/22 History mg tablet tamsulosin 0.4 mg capsule (Flomax) 0.4 mg PO DAILY 11/11/22 11/11/22 History verapamil 180 mg 24 hr 180 mg PO QAM 11/11/22 11/11/22 History capsule,extended release wheat dextrin 3 gram/4 gram oral 1 packet PO DAILY 11/11/22 11/11/22 History powder (Benefiber Sugar Free (dextrin)) Patient History Medical History Ascending aorta dilatation pt unaware Diabetes mellitus, type II GERD (gastroesophageal reflux disease) HLD (hyperlipidemia) Hx of cold sores Hypertension Hypothyroidism Kidney stones hx of Neuropathy right leg Nonobstructive atherosclerosis of coronary artery follows with Dr. Candelario REANNA on CPAP Pacemaker Medtronic > placed for SVT > placed in May 2020 > last checked over phone approx September 2021 Surgical History H/O cardiac catheterization 2019 > no stents History of appendectomy History of arthroscopy right knee ACL History of colonoscopy History of cystoscopy History of esophagogastroduodenoscopy (EGD) History of partial colectomy pre-cancerous area removed History of repair of rotator cuff bilat History of tonsillectomy Hx of left cataract extraction Hx of nasal septoplasty Hx of surgical procedure right biceps tendon repair S/p nephrectomy right > post trampoline accident age 19 Family History Mother Colorectal cancer Other Lung cancer Social History Smoking Status: Never smoker Tobacco Type: Cigarettes Second Hand Exposure: No; Do You Dip or Chew Tobacco: No (hx of 20 yrs ago); Hx Alcohol Use: Yes Alcohol Intake Frequency: 2-4 x/Month Hx Substance Use: No Preferred Language: Upper Sorbian Communication Ability: Effective Siding Applicator Required: No Beliefs That Will Affect Care: None Current Living Situation: Family Feels Safe at Home: Yes Assistive Devices: Cane, Glasses and Hearing Aid - Bilateral Physical Exam Constitutional: WD/WN, vitals as above Eyes: PERRL, conjunctivae normal, anicteric sclerae ENMT: external ear and nose normal, oropharynx normal Mild facial swelling left Neck: trachea midline, no thyromegaly Respiratory: normal respiratory effort, lungs clear to auscultation Cardiovascular: Rate/Rhythm: regular rate and regular rhythm Heart Sounds: normal S1 and normal S2; no gallop and no murmur Palpation: normal PMI Vessels: normal carotid upstroke and radial pulses present; no JVD and no carotid bruit Extremities: no edema Chest (Breasts): Chest: + pacemaker Gastrointestinal (Abdomen): normal bowel sounds, soft, nontender, no hepatosplenomegaly Musculoskeletal: no cyanosis or clubbing, extremities motor strength 5/5 Skin: no rashes, warm and dry Neurologic: PERRL, EOMI, accommodation nl, no face palsy, no dysarthria Psychiatric: A+Ox3, euthymic affect Results & Data Vital Signs (Past 12 Hours) Vital Signs Temp Pulse Resp BP Pulse Ox O2 Del Method 11/11/22 16:47 70 11/11/22 16:42 132 H 11/11/22 16:35 72 11/11/22 14:08 36.6 C 97 H 18 132/76 97 Room Air Laboratory Results Laboratory Results - last 24 hr 07/18/23 07/18/23 07/18/23 14:55 14:55 14:55 WBC 7.54 RBC 4.50 L Hgb 13.9 L Hct 40.3 L MCV 89.6 MCH 30.9 MCHC 34.5 RDW Std Deviation 41.0 RDW Coeff of Kyleigh 12.5 Plt Count 214 MPV 10.0 Immature Gran % (Auto) 1.3 Neut % (Auto) 58.4 Lymph % (Auto) 25.7 Davison % (Auto) 11.4 Eos % (Auto) 2.8 Baso % (Auto) 0.4 Neut # (Auto) 4.40 Lymph # (Auto) 1.94 Davison # (Auto) 0.86 H Eos # (Auto) 0.21 Baso # (Auto) 0.03 Immature Gran # (Auto) 0.10 Sodium 136 Potassium 3.5 Chloride 99 Carbon Dioxide 29 Anion Gap 8 BUN 8 Creatinine 0.59 L Est Cr Clr Drug Dosing 126.7 Est GFR ( Amer) 114.0 Est GFR (Non-Af Amer) 98.3 BUN/Creatinine Ratio 13.6 Glucose 113 H Calcium 9.4 Magnesium 2.0 Total Bilirubin 0.8 AST 16 ALT 15 Alkaline Phosphatase 71 Troponin I High Sens 5.1 B-Natriuretic Peptide 34 Total Protein 7.1 Albumin 4.5 Globulin 2.6 Albumin/Globulin Ratio 1.7 TSH SARS-CoV-2, RNA, NAAT 11/11/22 11/11/22 14:55 17:18 WBC RBC Hgb Hct MCV MCH MCHC RDW Std Deviation RDW Coeff of Kyleihg Plt Count MPV Immature Gran % (Auto) Neut % (Auto) Lymph % (Auto) Davison % (Auto) Eos % (Auto) Baso % (Auto) Neut # (Auto) Lymph # (Auto) Davison # (Auto) Eos # (Auto) Baso # (Auto) Immature Gran # (Auto) Sodium Potassium Chloride Carbon Dioxide Anion Gap BUN Creatinine Est Cr Clr Drug Dosing Est GFR ( Amer) Est GFR (Non-Af Amer) BUN/Creatinine Ratio Glucose Calcium Magnesium Total Bilirubin AST ALT Alkaline Phosphatase Troponin I High Sens B-Natriuretic Peptide Total Protein Albumin Globulin Albumin/Globulin Ratio TSH 2.095 SARS-CoV-2, RNA, NAAT NEGATIVE ECG Additional Comments: Atrial paced rhythm with bifascicular heart block, prolonged QT 522
[2022-11-11] MEDS ORDERED: GLUCAGON FOR INJ 1 MG VIAL SQ PRN (18:26)
[2022-11-11] MEDS ORDERED: NITROGLYCERIN SL 0.4 MG/TAB TAB SL PRN (18:26)
[2022-11-11] MEDS ORDERED: GLUCOSE 40% GEL 15 GM TUBE PO PRN (18:26)
[2022-11-11] MEDS ORDERED: GLUCOSE 10 TAB/TUBE PO PRN (18:26)
[2022-11-11] MEDS ORDERED: CARBOHYDRATES FOR HYPOGLYCEMIA PO PRN (18:26)
[2022-11-11] MEDS ORDERED: ALUMINUM/MAGNESIUM SUSP 30 ML UDC PO PRN (18:26)
[2022-11-11] MEDS ORDERED: ACETAMINOPHEN 325 MG TAB PO PRN (18:26)
[2022-11-11] MEDS ORDERED: DEXTROSE 50% 50 ML SYRINGE IV PRN (18:26)
[2022-11-11] MEDS ORDERED: PHARMACY GLYCEMIC MGMT CONSULT PRN (18:26)
[2022-11-11] MEDS ORDERED: MAGNESIUM HYDROXIDE SUSP 30 ML UDC PO PRN (18:26)
--- NOTE | 2022-11-11 18:26 | History & Physical Report ---
Date of Service November 11, 2022 Assessment & Plan (1) Near syncope: Plan 77-year-old male with PMH of SVT leading to presyncope/syncope status post pacemaker placement in 2020, T2DM, COPD, REANNA on CPAP, ascending aorta dilatation, HTN, CAD, CATARINA presented to the ED 11/11 with complaint of presyncope. He is being managed for the following: Wide-complex tachycardia Near syncope Patient came in with 6 episodes of lightheadedness/blurry vision/generalized wea kness; 2 of them happened on the day of arrival; one of them happened in the ED which was 60 sec long wide-complex tachycardia per ED physician. It resolved spontaneously. Patient denies chest pain, denies palpitation during most of his episodes except for the last 1. Patient denies any acute change in his other review of symptoms or any changes in his medications lately. Admitting troponin and electrolytes fairly WNL, goal of potassium and magnesium 4.0 and 2.0 respectively We will give the next dose of potassium. Admitting EKG with atrial paced rhythm with a rate of 84. Cardiology evaluated, echocardiogram, continue prehospital medication, continue telemetry, pacemaker interrogation in a.m. Upon med recs discussion with patient, patient denies taking amiodarone at home; OP med list doesn't show amiodarone; since his system med rec shows amiodarone 200 mg QAM; i dig into his past cardiology chart from 08/21/22 which states " History of symptomatic SVT treated with amiodarone 05/2020 but discontinued 02/2022 due to gait instability/weakness. " Concern for black tarry stool: Patient complains of 2 episodes of black tarry stool, does endorse using Advil for hip pain which he stopped around 3 weeks ago per patient. Continue to monitor hemoglobin. Currently with no black tarry stool per patient. Hemoglobin seems to be around his baseline, admitting hemoglobin of 13.9. C/w home pepcid and ppi. Left dental abscess: Recently diagnosed at urgent care, visited his dental surgeon today, on Augmentin for 10 days, has plan for teeth extraction on November 29 per patient. Continue Augmentin. Other chronic medical conditions: HTN, HLD, CAD, T2DM, CATARINA, cold sores (valtrex) --->> continue/resume home meds as and when able. Sliding scale insulin while in the hospital. DVT prophylaxis: Heparin subcu, Monitor hemoglobin closely. DNR/DNI History of Present Illness Chief Complaint: Near syncope/palpitation Primary Care Provider: Tip Oliver DO 77-year-old male with PMH of SVT leading to near syncope/syncope status post pacemaker placement in 2020, T2DM, COPD, REANNA on CPAP, ascending aorta dilatation, HTN, CAD, CATARINA presented to the ED 11/11 with complaint of presyncope. 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 Patient denies any aura/nausea/dry heaves/vomiting/sweating/palpitations or feeling of heart racing prior to presyncopal events, no loss of consciousness or involuntary movements, no chest pain per patient. Patient denies any flulike illness or acute changes in his bowel or bladder habit in the last 1 month. Patient does report 2 episodes of black tarry stool in the last 1 month which resolved on its own, patient does have hip pain for which he takes on and off Advil and he stopped taking them about 3 weeks ago. He reports his BLE swelling has been stable lately. 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 Patient denies smoking/using alcohol/using recreational drugs. Medications list were reviewed with the patient, plan of care discussed, he was understanding and was agreeable. DNR/DNI per my discussion with the patient. Allergies Allergy/AdvReac Type Severity Reaction Status Date / Time iodine Allergy Intermediate FULL BODY Verified 11/11/22 16:48 ITCHING povidone-iodine Allergy Intermediate Rash Verified 11/11/22 16:48 [From Betadine] shellfish derived Allergy Intermediate FULL BODY Verified 11/11/22 16:48 ITCHING Home Medications Medication Instructions Recorded Confirmed Type aspirin 81 mg tablet,delayed 81 mg PO HS 08/13/19 11/11/22 History release atorvastatin 40 mg tablet 40 mg PO QAM 08/13/19 11/11/22 History fluticasone propionate 50 2 spray intranasal QAM 08/13/19 11/11/22 History mcg/actuation nasal spray,suspension glipizide 5 mg tablet 10 mg PO AMPM 08/13/19 11/11/22 History metformin 1,000 mg tablet 1,000 mg PO BID 08/13/19 11/11/22 History omega-3 360 nl-ugo-bri-fish oil 1 cap PO TIDM 08/13/19 11/11/22 History 1,200 mg capsule,delayed release (Fish Oil) omeprazole 20 mg capsule,delayed 20 mg PO BID 08/13/19 11/11/22 History release semaglutide 1 mg/dose (2 mg/1.5 2 mg subcut WK 08/13/19 11/11/22 History mL) subcutaneous pen injector (Ozempic) valacyclovir 500 mg tablet 500 mg PO PM 05/14/20 11/11/22 History acetaminophen 325 mg tablet 650 mg PO Q4H PRN pain #50 tabs 06/14/20 11/11/22 Rx amiodarone 200 mg tablet 200 mg PO QAM 06/24/20 11/11/22 History cetirizine 10 mg tablet 10 mg PO QAM 06/24/20 11/11/22 History losartan 50 mg tablet 50 mg PO BID 02/05/21 11/11/22 History tadalafil 5 mg tablet 5 mg PO DAILY 02/05/21 11/11/22 History levothyroxine 88 mcg tablet 88 mcg PO QAM 12/03/21 11/11/22 History amoxicillin 875 mg-potassium 1 tab PO BID 11/11/22 11/11/22 History clavulanate 125 mg tablet carvedilol 25 mg tablet 25 mg PO BID 11/11/22 11/11/22 History cholecalciferol (vitamin D3) 50 50 mcg PO DAILY 11/11/22 11/11/22 History mcg (2,000 unit) capsule (Vitamin D3) famotidine 20 mg tablet 20 mg PO DAILY 11/11/22 11/11/22 History fluticasone fur. 100 mcg-umeclid 1 inh inhalation DAILY 11/11/22 11/11/22 History 62.5 mcg-vilant 25 mcg inhalat.powder (Trelegy Ellipta) furosemide 40 mg tablet (Lasix) 40 mg PO DAILY 11/11/22 11/11/22 History ipratropium bromide 21 mcg (0.03 2 spray intranasal TID 11/11/22 11/11/22 History %) nasal spray oxycodone-acetaminophen 5 mg-325 1 tab PO BID PRN Pain, Severe 11/11/22 11/11/22 History mg tablet tamsulosin 0.4 mg capsule (Flomax) 0.4 mg PO DAILY 11/11/22 11/11/22 History verapamil 180 mg 24 hr 180 mg PO QAM 11/11/22 11/11/22 History capsule,extended release wheat dextrin 3 gram/4 gram oral 1 packet PO DAILY 11/11/22 11/11/22 History powder (Benefiber Sugar Free (dextrin)) Past Med/Surg History Medical History Ascending aorta dilatation pt unaware Diabetes mellitus, type II GERD (gastroesophageal reflux disease) HLD (hyperlipidemia) Hx of cold sores Hypertension Hypothyroidism Kidney stones hx of Neuropathy right leg Nonobstructive atherosclerosis of coronary artery follows with Dr. Candelario REANNA on CPAP Pacemaker Medtronic > placed for SVT > placed in May 2020 > last checked over phone approx September 2021 Surgical History H/O cardiac catheterization 2019 > no stents History of appendectomy History of arthroscopy right knee ACL History of colonoscopy History of cystoscopy History of esophagogastroduodenoscopy (EGD) History of partial colectomy pre-cancerous area removed History of repair of rotator cuff bilat History of tonsillectomy Hx of left cataract extraction Hx of nasal septoplasty Hx of surgical procedure right biceps tendon repair S/p nephrectomy right > post trampoline accident age 19 Family History Mother Colorectal cancer Other Lung cancer Social History Smoking Status: Never smoker Tobacco Type: Cigarettes Second Hand Exposure: No; Do You Dip or Chew Tobacco: No (hx of 20 yrs ago); Hx Alcohol Use: Yes Alcohol Intake Frequency: 2-4 x/Month Hx Substance Use: No Preferred Language: Ecuadorean Communication Ability: Effective Alteration Workroom Supervisor Required: No Beliefs That Will Affect Care: None Current Living Situation: Family Feels Safe at Home: Yes Assistive Devices: Cane, Glasses and Hearing Aid - Bilateral Review of Systems Review of Systems: Negative otherwise mentioned in HPI. Physical Exam Physical Exam: GENERAL: Alert and oriented x3. NAD, on RA. HEENT: No pallor, no icterus. Pupils equal, round and reactive to light. Oral mucosa moist. NECK: No JVD, no neck masses. HEART: S1 and S2 heard. Regular rate and rhythm. + murmur, no gallop. Pacer noted left upper chest. RESPIRATORY SYSTEM: Normal AP diameter. No accessory muscle use. No wheezing, no crackles. ABDOMEN: Soft, bowel sounds present, nontender, no distention. CENTRAL NERVOUS SYSTEM: No facial droop. Speech is clear. Obeys simple commands. Moves extremities. EXTREMITIES: 1+ ble edema, no erythema seen. Results & Data Results & Data Vital Signs (Past 12 Hours) Vital Signs Temp Pulse Resp BP Pulse Ox O2 Del Method 11/11/22 16:47 70 11/11/22 16:42 132 H 11/11/22 16:35 72 11/11/22 14:08 36.6 C 97 H 18 132/76 97 Room Air
--- NOTE | 2022-11-11 18:29 | CT Scan Report ---
CT SCAN OF THE BRAIN WITHOUT IV CONTRAST CLINICAL HISTORY: Dizziness. Syncope. COMPARISON STUDY: CT of the brain dated 05/14/2020. TECHNIQUE: Unenhanced axial CT scan of the brain is performed from the vertex to the skull base. A do se lowering technique was utilized adhering to the principles of ALARA. CT DOSE: 547.75 mGy.cm FINDINGS: Brain parenchyma: There is age-related involutional change noting mild subcortical and periventricula r microangiopathic disease. There is no hemorrhage, mass effect, or evidence of acute territorial isc hemia by CT criteria. Villagomez-white matter differentiation is preserved. No extra-axial fluid collection is seen. Ventricles, sulci, cisterns: Prominent secondary to involutional change. Intracranial vasculature: There is atherosclerotic calcification of the cavernous carotid and vertebr al arteries. Calvarium: Unremarkable. Sinuses and mastoids: The visualized paranasal sinuses are clear. The mastoid air cells are well pneu matized. Orbits: The bony orbits are grossly intact. There are bilateral ocular lens implants. IMPRESSION: There is no hemorrhage, mass effect, or evidence of acute territorial ischemia by CT cynthia villatoro. ACT 112: Negative or not required by law. Electronically signed by: Christopher Miguel M.D. 11/11/2022 6:28 PM
[2022-11-11 20:19] LABS: Influenza A virus by PCR Negative (Neg); Influenza B virus by PCR Negative (Neg); RSV by PCR Negative (Neg); SARS CoV2 RNA(COVID-19) Ceph NEGATIVE (Negative)
[2022-11-11] MEDS ORDERED: oxyCODONE/ACETAMINOPHEN 5mg/325mg TAB PO PRN (20:33)
[2022-11-11] MEDS ORDERED: LANTUS PER UNIT CHARGE SQ SCH (21:00)
[2022-11-11] MEDS: INSULIN ASPART PER UNIT CHARGE SC SCH (21:17)
[2022-11-11] MEDS: FAMOTIDINE 20 MG TAB PO SCH (21:21)
[2022-11-11] MEDS: IPRATROPIUM BROMIDE NASAL SPRAY 0.06% 15ML NAE SCH (21:21)
[2022-11-11] MEDS: carvediloL 25 MG TAB PO SCH (21:21)
[2022-11-11] MEDS: LOSARTAN POTASSIUM 50 MG TAB PO SCH (21:21)
[2022-11-11] MEDS: ASPIRIN 81 MG ECTAB PO SCH (21:22)
[2022-11-11] MEDS: AMOXICILLIN/CLAVULANATE 875 MG TAB PO SCH (21:22)
[2022-11-11] MEDS: PANTOprazole 40 MG TAB PO SCH (21:22)
[2022-11-11] MEDS: valACYclovir HCL 500 MG TABLET PO SCH (21:22)
[2022-11-11] MEDS ORDERED: AMIODARONE / D5W 360 MG/200 ML BAG IV SCH (22:45)
[2022-11-12 05:36] LABS: Hematocrit (blood only) 38.4 % (42.0-52.0); Hemoglobin 13.4 g/dl (14.0-18.0); Mean Corpuscular Hgb Conc 34.9 g/dL (32.0-36.0); Mean Corpuscular Volume 88.9 fL (80.0-100.0); Mean Platelet Volume 9.8 fL (9.4-12.4); Platelet Count 194 K/uL (130-400); RDW Coefficient of Variation 12.3 % (11.5-14.5); Red Blood Count 4.32 M/uL (4.70-6.10); White Blood Count 6.67 K/ul (4.8-10.8)
[2022-11-12] MEDS: LEVOTHYROXINE SODIUM 88 MCG TABLET PO SCH (05:50)
[2022-11-12 05:51] LABS: Calcium 9.2 mg/dl (8.6-10.3); Potassium 3.8 mmol/L (3.5-5.1)
[2022-11-12 05:57] LABS: BUN Creatinine Ratio 11.7 (10-20); Creatinine Clr Calc Pharmacy 124.5 ml/min; Est GFR (African American) 113.2 ml/min; Est GFR (Non-African American) 97.7 ml/min; Phosphorus 3.8 mg/dl (2.5-4.9)
[2022-11-12] MEDS: INSULIN ASPART PER UNIT CHARGE SC SCH ×4 (07:52→20:37)
[2022-11-12 08:14] LABS: Estimated Average Glucose 148 mg/dl; Hemoglobin A1C 6.8 % (4.5-5.6)
[2022-11-12] MEDS: FAMOTIDINE 20 MG TAB PO SCH ×2 (08:29→20:07)
[2022-11-12] MEDS: FUROSEMIDE 40 MG TAB PO SCH (08:29)
[2022-11-12] MEDS: CETIRIZINE HCL 10 MG TABLET PO SCH (08:29)
[2022-11-12] MEDS: TAMSULOSIN HCL 0.4 MG CAP PO SCH (08:29)
[2022-11-12] MEDS: LOSARTAN POTASSIUM 50 MG TAB PO SCH ×2 (08:29→20:07)
[2022-11-12] MEDS: carvediloL 25 MG TAB PO SCH ×2 (08:29→20:07)
[2022-11-12] MEDS: CHOLECALCIFEROL 1,000 UNITS 25 MCG TAB PO SCH (08:29)
[2022-11-12] MEDS: AMOXICILLIN/CLAVULANATE 875 MG TAB PO SCH ×2 (08:29→16:50)
[2022-11-12] MEDS: ATORVASTATIN 40 MG TAB PO SCH (08:29)
[2022-11-12] MEDS: PANTOprazole 40 MG TAB PO SCH ×2 (08:30→20:08)
[2022-11-12] MEDS: VERAPAMIL HCL 180 MG TABCR PO SCH (08:30)
[2022-11-12] MEDS: FLUTICASONE FUROATE 100MCG 14 PUFFS/INHALER INH SCH (08:30)
[2022-11-12] MEDS: FLUTICASONE PROPIONATE NA SPR 16 GM BTL SCH (08:31)
[2022-11-12] MEDS: UMECLIDINIUM/VILANTEROL 62.5/25MCG 7 PUFFS/INHALER INH SCH (08:31)
[2022-11-12] MEDS: IPRATROPIUM BROMIDE NASAL SPRAY 0.06% 15ML NAE SCH ×3 (08:37→20:09)
[2022-11-12] MEDS ORDERED: NON-FORMULARY MEDICATION (Fluticasone-Umeclidin-Vilanter [Trelegy Ellipta] 100-62.5-25 mcg INH SCH (09:00)
[2022-11-12] MEDS ORDERED: SODIUM CHLORIDE 0.9% 1000ML 1,000 ML IV SCH (09:15)
--- NOTE | 2022-11-12 09:22 | Cardiac Catheterization ---
Cardiac Cath Procedure Brief Procedure Date November 12, 2022 Pre-Procedure Diagnosis Pre-Procedure Diagnosis: Angina and Positive Stress Test AUC Score AUC Score: 7 Post-Procedure Diagnosis Post-Procedure Diagnosis: Mild CAD Procedure(s) Performed Procedure(s) Performed: Coronary Angiography and Left Heart Cath Endocrinology Specialist Pramod Brown MD Samples And Repairs Preparer(s) Daniel Lora Estimated Blood Loss Estimated Blood Loss: <15cc Medication(s) Medication(s): Fentanyl (12.5 mcg IV), Heparin (5000 units IV), Lidocaine 1% (Local infiltration access site), Nicardipine (250 mcg intra-arterial after arterial sheath insertion) and Versed (1 mg IV) Preliminary Findings Impression: Normal codominant coronary anatomy Normal systolic function EF 50-55% Recommendations Recommendations: Medical Therapy and/or Counseling Specimens Specimens: None Fluids (cc crystalloids) Fluids (cc crystalloids): 100 Anesthesia Start time: stop time: 01 08 Procedural Complication(s) None Disposition Melter Operator Holding/Recovery
--- NOTE | 2022-11-12 09:22 | Post Anesthesia Assessment ---
Date of Service November 12, 2022 Post Sedation Assessment Vital Signs Temp Pulse Pulse Resp BP BP BP 11/12/22 08:05 71 11/12/22 07:53 36.6 C 81 20 154/79 H 11/12/22 02:43 36.6 C 72 18 166/93 H 11/11/22 23:38 70 11/11/22 23:00 36.5 C 70 16 169/92 H 11/11/22 21:57 187/98 H 11/11/22 21:07 73 11/11/22 20:39 76 11/11/22 20:45 11/11/22 20:36 36.5 C 75 16 199/104 H 11/11/22 19:20 73 12 11/11/22 19:10 71 14 11/11/22 19:00 69 13 11/11/22 19:00 165/89 H 11/11/22 18:50 70 19 11/11/22 18:40 70 14 11/11/22 18:30 76 18 11/11/22 18:30 181/102 H 11/11/22 18:25 76 20 11/11/22 18:10 88 19 11/11/22 18:00 84 14 11/11/22 18:00 184/109 H 11/11/22 17:50 72 22 11/11/22 17:40 70 25 H 11/11/22 17:30 70 14 11/11/22 17:30 164/94 H 11/11/22 17:20 70 21 11/11/22 17:10 74 18 11/11/22 17:00 74 19 11/11/22 17:00 172/93 H 11/11/22 16:50 71 11 L 11/11/22 16:48 70 14 11/11/22 16:07 11/11/22 19:25 74 11/11/22 16:47 70 11/11/22 16:42 132 H 11/11/22 16:35 72 11/11/22 14:08 36.6 C 97 H 18 132/76 Pulse Ox O2 Del Method 11/12/22 08:05 11/12/22 07:53 97 Room Air 11/12/22 02:43 96 Room Air 11/11/22 23:38 11/11/22 23:00 96 Room Air 11/11/22 21:57 11/11/22 21:07 11/11/22 20:39 11/11/22 20:45 Room Air 11/11/22 20:36 98 Room Air 11/11/22 19:20 97 11/11/22 19:10 96 11/11/22 19:00 97 11/11/22 19:00 11/11/22 18:50 98 11/11/22 18:40 98 11/11/22 18:30 97 11/11/22 18:30 11/11/22 18:25 94 11/11/22 18:10 11/11/22 18:00 98 11/11/22 18:00 11/11/22 17:50 99 11/11/22 17:40 99 11/11/22 17:30 95 11/11/22 17:30 11/11/22 17:20 97 11/11/22 17:10 11/11/22 17:00 11/11/22 17:00 11/11/22 16:50 99 11/11/22 16:48 98 11/11/22 16:07 96 Room Air 11/11/22 19:25 98 Room Air 11/11/22 16:47 11/11/22 16:42 11/11/22 16:35 11/11/22 14:08 97 Room Air Recovery Score Activity: Moves 4 extremities Respiration: Deep Breath/Cough Circulation: +/-20% PreAnes Value Consciousness: Fully Awake Oxygen Saturation: > 92% On Room Air Discharge Sedation Level of Care: Phase I Post Sedation Plan On clinical assessment, the patient appears to have tolerated the sedation without complications. Patient is recovering as anticipated. Patient will continue to be monitored by nursing and may be discharged when sedation discharge criteria are met per below protocol. Upon Completions of procedure up to 15 minutes continue every 5 minute vital signs and the P.A.R. score; then discharge to a Phase I or Fast Track to Phase II per the following guidelines: * Discharge Patient to appropriate Phase II area if PAR is 8 or greater or return to pre- procedure baseline. The post - procedure orders will be as directed. * If PAR score is less than 8 or not return to pre-procedure baseline then patient will follow Phase I monitoring till PAR is reached for Phase II. The Phase I may be done in procedure room or may call to secure a Phase I area. * If naloxone or flumazenil are used for reversal, hold in Phase I for continued monitoring from when last reversal dose was given for a minimum of 60 minutes or longer pending the nurse and/or physician discretion of patient condition before discharge to Phase II. Please call the Sedation Physician to re-evaluate and complete post-note for discharge to Phase II area. Do NOT discharge from procedure sedation or Phase 1 until post- sedation evaluation note is complete by procedure /sedation MD Sedation Discharge Instructions to be given to the patient at discharge to home.
--- NOTE | 2022-11-12 11:11 | Hospitalist Progress Note ---
Date of Service November 12, 2022 Assessment & Plan (1) Near syncope: Plan 77-year-old male with h/o SVT leading to presyncope/syncope status post pacemaker placement in 2020, T2DM, COPD, REANNA on CPAP, ascending aorta dilatation, HTN, CAD, CATARINA presented to the ED 11/11 with complaint of presyncope. He is being managed for the following: Wide-complex tachycardia Near syncope Patient came in with 6 episodes of lightheadedness/blurry vision/generalized weakness; 2 of them happened on the day of arrival; one of them happened in the ED which was 60 sec long wide-complex tachycardia per ED physician. It resolved spontaneously. Patient denies chest pain, denies palpitation during most of his episodes except for the last 1. Patient denies any acute change in his other review of symptoms or any changes in his medications lately. Admitting troponin and electrolytes fairly WNL, goal of potassium and magnesium 4.0 and 2.0 respectively Admitting EKG with atrial paced rhythm with a rate of 84. Cardiology evaluated on admission - echocardiogram ordered, continue prehospital medication, continue telemetry, pacemaker interrogation. Echo -LV is normal in size. Moderate concentric LVH. LV wall motion is normal. EF 60 to 65%. Septal motion is consistent with conduction abnormality. There is trace mitral regurg. There is trace tricuspid regurg. Per admitting provider: Upon med recs discussion with patient, patient denies taking amiodarone at home; OP med list doesn't show amiodarone; since his system med rec shows amiodarone 200 mg QAM; i dig into his past cardiology chart from 08/21/22 which states " History of symptomatic SVT treated with amiodarone 05/2020 but discontinued 02/2022 due to gait instability/weakness. " 11/12/22 Discussed w/ cardiology - plan for EP eval likely tmrw PM, NPO after MN Concern for black tarry stool: Patient complains of 2 episodes of black tarry stool, does endorse using Advil for hip pain which he stopped around 3 weeks ago per patient. Continue to monitor hemoglobin. Currently with no black tarry stool per patient. Hemoglobin seems to be around his baseline, admitting hemoglobin of 13.9. C/w home pepcid and ppi. Left dental abscess: Recently diagnosed at urgent care, visited his dental surgeon day of admission, on Augmentin for 10 days, has plan for teeth extraction on November 29 per patient. Continue Augmentin. Other chronic medical conditions: HTN, HLD, CAD, T2DM, CATARINA, cold sores (valtrex) --->> continue/resume home meds as and when able. Sliding scale insulin while in the hospital. DVT prophylaxis: Heparin subcu, Monitor hemoglobin closely. DNR/DNI Admission and Anticipated Discharge Date Admission Date: November 11, 2022 Subjective Pt seen in follow up of syncope, [place] Cardiology consulted Currently laying in bed in NAD, denies any chest pain or palpitations. earlier today had episode of arrhythmia and felt dizzy. No fevers, chills, no n/v or abd. pain. Discussed w/ cardiology - discussed medical management/ EP eval Review of Systems Review of Systems: All systems reviewed & are unremarkable except as noted in Subjective Physical Exam Physical Exam: GENERAL: Alert and oriented x3. NAD, on RA. HEENT: NC/AT. No pallor, no icterus. Pupils equal, round and reactive to light. Oral mucosa moist. NECK: No JVD, no neck masses. HEART: S1 and S2 heard. Regular rate and rhythm. no murmur, no gallop. Pacer noted left upper chest. RESPIRATORY: Normal AP diameter. No accessory muscle use. No wheezing, no crackles. ABDOMEN: Soft, bowel sounds present, nontender, no distention. NEURO: Awake and alert. Answers appropriately. No facial droop. Speech is clear. Obeys simple commands. Moves extremities. EXTREMITIES:no edema, no erythema seen. Results & Data Results & Data Vital Signs (Past 12 Hours) Vital Signs Temp Pulse Pulse Resp BP Pulse Ox O2 Del Method 11/12/22 08:05 71 11/12/22 07:53 36.6 C 81 20 154/79 H 97 Room Air 11/12/22 02:43 36.6 C 72 18 166/93 H 96 Room Air 11/11/22 23:38 70 Laboratory Results 11/12/22 11/12/22 11/12/22 Range/Units 05:19 05:19 05:19 WBC 6.67 (4.8-10.8) K/ul RBC 4.32 L (4.70-6.10) M/uL Hgb 13.4 L (14.0-18.0) g/dl Hct 38.4 L (42.0-52.0) % MCV 88.9 (80.0-100.0) fL MCH 31.0 (25.0-34.0) pg MCHC 34.9 (32.0-36.0) g/dL RDW Std Deviation 40.0 (36.4-46.3) fL RDW Coeff of [place] 12.3 (11.5-14.5) % Plt Count 194 (130-400) K/uL MPV 9.8 (9.4-12.4) fL Immature Gran % (Auto) % Neut % (Auto) % Lymph % (Auto) % [place] % (Auto) % Eos % (Auto) % Baso % (Auto) % Neut # (Auto) (1.40-6.50) K/uL Lymph # (Auto) (1.2-3.4) K/uL [place] # (Auto) (0.11-0.59) K/uL Eos # (Auto) (0-0.50) K/uL Baso # (Auto) (0-0.2) K/uL Immature Gran # (Auto) (0.01-0.20) K/uL Sodium 134 L (136-145) mmol/L Potassium 3.8 (3.5-5.1) mmol/L Chloride 103 (98-107) mmol/L Carbon Dioxide 25 (21-32) mmol/L Anion Gap 6 (3-11) BUN 7 (6-23) mg/dl Creatinine 0.60 (0.6-1.4) mg/dl Est Cr Clr Drug Dosing 124.5 ml/min Est GFR ( Amer) 113.2 ml/min Est GFR (Non-Af Amer) 97.7 ml/min BUN/Creatinine Ratio 11.7 (10-20) Glucose 115 H (70-99(Fasting)) mg/dl POC Glucose (70-99) mg/dl Estimat Average Glucose 148 mg/dl Hemoglobin A1c 6.8 H (4.5-5.6) % Calcium 9.2 (8.6-10.3) mg/dl Phosphorus 3.8 (2.5-4.9) mg/dl Magnesium 2.0 (1.7-2.4) mg/dl Total Bilirubin (0.2-1.0) mg/dl AST (13-39) U/L ALT (7-52) U/L Alkaline Phosphatase (34-104) U/L Troponin I High Sens (0-20) pg/ml B-Natriuretic Peptide (0-100) pg/ml Total Protein (6.0-8.3) gm/dl Albumin (3.4-5.0) gm/dl Globulin (2.5-4.0) gm/dl Albumin/Globulin Ratio (0.9-2) TSH (0.300-4.500) uIu/ml SARS-CoV-2 (PCR) (Negative) Influenza Type A (PCR) (Neg) Influenza Type B (PCR) (Neg) RSV (RT-PCR) (Neg) SARS-CoV-2, RNA, NAAT (NEGATIVE) 11/11/22 11/11/22 11/11/22 Range/Units 20:01 19:14 17:18 WBC (4.8-10.8) K/ul RBC (4.70-6.10) M/uL Hgb (14.0-18.0) g/dl Hct (42.0-52.0) % MCV (80.0-100.0) fL MCH (25.0-34.0) pg MCHC (32.0-36.0) g/dL RDW Std Deviation (36.4-46.3) fL RDW Coeff of [place] (11.5-14.5) % Plt Count (130-400) K/uL MPV (9.4-12.4) fL Immature Gran % (Auto) % Neut % (Auto) % Lymph % (Auto) % [place] % (Auto) % Eos % (Auto) % Baso % (Auto) % Neut # (Auto) (1.40-6.50) K/uL Lymph # (Auto) (1.2-3.4) K/uL [place] # (Auto) (0.11-0.59) K/uL Eos # (Auto) (0-0.50) K/uL Baso # (Auto) (0-0.2) K/uL Immature Gran # (Auto) (0.01-0.20) K/uL Sodium (136-145) mmol/L Potassium (3.5-5.1) mmol/L Chloride (98-107) mmol/L Carbon Dioxide (21-32) mmol/L Anion Gap (3-11) BUN (6-23) mg/dl Creatinine (0.6-1.4) mg/dl Est Cr Clr Drug Dosing ml/min Est GFR ( Amer) ml/min Est GFR (Non-Af Amer) ml/min BUN/Creatinine Ratio (10-20) Glucose (70-99(Fasting)) mg/dl POC Glucose 103 H (70-99) mg/dl Estimat Average Glucose mg/dl Hemoglobin A1c (4.5-5.6) % Calcium (8.6-10.3) mg/dl Phosphorus (2.5-4.9) mg/dl Magnesium (1.7-2.4) mg/dl Total Bilirubin (0.2-1.0) mg/dl AST (13-39) U/L ALT (7-52) U/L Alkaline Phosphatase (34-104) U/L Troponin I High Sens (0-20) pg/ml B-Natriuretic Peptide (0-100) pg/ml Total Protein (6.0-8.3) gm/dl Albumin (3.4-5.0) gm/dl Globulin (2.5-4.0) gm/dl Albumin/Globulin Ratio (0.9-2) TSH (0.300-4.500) uIu/ml SARS-CoV-2 (PCR) NEGATIVE (Negative) Influenza Type A (PCR) Negative (Neg) Influenza Type B (PCR) Negative (Neg) RSV (RT-PCR) Negative (Neg) SARS-CoV-2, RNA, NAAT NEGATIVE (NEGATIVE) 11/11/22 11/11/22 11/11/22 Range/Units 14:55 14:55 14:55 WBC (4.8-10.8) K/ul RBC (4.70-6.10) M/uL Hgb (14.0-18.0) g/dl Hct (42.0-52.0) % MCV (80.0-100.0) fL MCH (25.0-34.0) pg MCHC (32.0-36.0) g/dL RDW Std Deviation (36.4-46.3) fL RDW Coeff of [place] (11.5-14.5) % Plt Count (130-400) K/uL MPV (9.4-12.4) fL Immature Gran % (Auto) % Neut % (Auto) % Lymph % (Auto) % [place] % (Auto) % Eos % (Auto) % Baso % (Auto) % Neut # (Auto) (1.40-6.50) K/uL Lymph # (Auto) (1.2-3.4) K/uL [place] # (Auto) (0.11-0.59) K/uL Eos # (Auto) (0-0.50) K/uL Baso # (Auto) (0-0.2) K/uL Immature Gran # (Auto) (0.01-0.20) K/uL Sodium 136 (136-145) mmol/L Potassium 3.5 (3.5-5.1) mmol/L Chloride 99 (98-107) mmol/L Carbon Dioxide 29 (21-32) mmol/L Anion Gap 8 (3-11) BUN 8 (6-23) mg/dl Creatinine 0.59 L (0.6-1.4) mg/dl Est Cr Clr Drug Dosing 126.7 ml/min Est GFR ( Amer) 114.0 ml/min Est GFR (Non-Af Amer) 98.3 ml/min BUN/Creatinine Ratio 13.6 (10-20) Glucose 113 H (70-99(Fasting)) mg/dl POC Glucose (70-99) mg/dl Estimat Average Glucose mg/dl Hemoglobin A1c (4.5-5.6) % Calcium 9.4 (8.6-10.3) mg/dl Phosphorus (2.5-4.9) mg/dl Magnesium 2.0 (1.7-2.4) mg/dl Total Bilirubin 0.8 (0.2-1.0) mg/dl AST 16 (13-39) U/L ALT 15 (7-52) U/L Alkaline Phosphatase 71 (34-104) U/L Troponin I High Sens 5.1 (0-20) pg/ml B-Natriuretic Peptide 34 (0-100) pg/ml Total Protein 7.1 (6.0-8.3) gm/dl Albumin 4.5 (3.4-5.0) gm/dl Globulin 2.6 (2.5-4.0) gm/dl Albumin/Globulin Ratio 1.7 (0.9-2) TSH 2.095 (0.300-4.500) uIu/ml SARS-CoV-2 (PCR) (Negative) Influenza Type A (PCR) (Neg) Influenza Type B (PCR) (Neg) RSV (RT-PCR) (Neg) SARS-CoV-2, RNA, NAAT (NEGATIVE) 11/11/22 Range/Units 14:55 WBC 7.54 (4.8-10.8) K/ul RBC 4.50 L (4.70-6.10) M/uL Hgb 13.9 L (14.0-18.0) g/dl Hct 40.3 L (42.0-52.0) % MCV 89.6 (80.0-100.0) fL MCH 30.9 (25.0-34.0) pg MCHC 34.5 (32.0-36.0) g/dL RDW Std Deviation 41.0 (36.4-46.3) fL RDW Coeff of [place] 12.5 (11.5-14.5) % Plt Count 214 (130-400) K/uL MPV 10.0 (9.4-12.4) fL Immature Gran % (Auto) 1.3 % Neut % (Auto) 58.4 % Lymph % (Auto) 25.7 % [place] % (Auto) 11.4 % Eos % (Auto) 2.8 % Baso % (Auto) 0.4 % Neut # (Auto) 4.40 (1.40-6.50) K/uL Lymph # (Auto) 1.94 (1.2-3.4) K/uL [place] # (Auto) 0.86 H (0.11-0.59) K/uL Eos # (Auto) 0.21 (0-0.50) K/uL Baso # (Auto) 0.03 (0-0.2) K/uL Immature Gran # (Auto) 0.10 (0.01-0.20) K/uL Sodium (136-145) mmol/L Potassium (3.5-5.1) mmol/L Chloride (98-107) mmol/L Carbon Dioxide (21-32) mmol/L Anion Gap (3-11) BUN (6-23) mg/dl Creatinine (0.6-1.4) mg/dl Est Cr Clr Drug Dosing ml/min Est GFR ( Amer) ml/min Est GFR (Non-Af Amer) ml/min BUN/Creatinine Ratio (10-20) Glucose (70-99(Fasting)) mg/dl POC Glucose (70-99) mg/dl Estimat Average Glucose mg/dl Hemoglobin A1c (4.5-5.6) % Calcium (8.6-10.3) mg/dl Phosphorus (2.5-4.9) mg/dl Magnesium (1.7-2.4) mg/dl Total Bilirubin (0.2-1.0) mg/dl AST (13-39) U/L ALT (7-52) U/L Alkaline Phosphatase (34-104) U/L Troponin I High Sens (0-20) pg/ml B-Natriuretic Peptide (0-100) pg/ml Total Protein (6.0-8.3) gm/dl Albumin (3.4-5.0) gm/dl Globulin (2.5-4.0) gm/dl Albumin/Globulin Ratio (0.9-2) TSH (0.300-4.500) uIu/ml SARS-CoV-2 (PCR) (Negative) Influenza Type A (PCR) (Neg) Influenza Type B (PCR) (Neg) RSV (RT-PCR) (Neg) SARS-CoV-2, RNA, NAAT (NEGATIVE) Medications Administered Current Inpatient Medications Acetaminophen (Acetaminophen 325 Mg Tab) 650 mg PO Q4H PRN PRN Reason: Pain or Fever Stop: 12/11/22 18:25 Al Hydrox/Mg Hydrox/Simethicone (Aluminum/Magnesium Susp 30 Ml Udc) 15 ml PO Q4H PRN PRN Reason: Dyspepsia Stop: 12/11/22 18:25 Amoxicillin/Clavulanate Potassium (Amoxicillin/Clavulanate 875 Mg Tab) 1 tab PO BIDM [facility]; Protocol Stop: 11/21/22 20:59 Last Admin: 11/12/22 08:29 Dose: 1 tab Aspirin (Aspirin 81 Mg Ectab) 81 mg PO [facility] Stop: 12/11/22 20:59 Last Admin: 11/11/22 21:22 Dose: 81 mg Atorvastatin Calcium (Atorvastatin 40 Mg Tab) [facility] [place] Stop: 12/12/22 08:59 Last Admin: 11/12/22 08:29 Dose: 40 mg Carvedilol (Carvedilol 25 Mg Tab) 25 mg PO BID [facility] Stop: 12/11/22 20:59 Last Admin: 11/12/22 08:29 Dose: 25 mg Cetirizine HCl (Cetirizine Hcl 10 Mg Tablet) 10 mg PO QAM [facility] Stop: 12/12/22 08:59 Last Admin: 11/12/22 08:29 Dose: 10 mg Dextrose (Dextrose 50% 50 Ml Syringe) 25 - 50 ml IV UD PRN; Protocol PRN Reason: Hypoglycemia Protocol Stop: 12/11/22 18:25 Famotidine (Famotidine 20 Mg Tab) 20 mg PO BID [facility] Stop: 12/11/22 20:59 Last Admin: 11/12/22 08:29 Dose: 20 mg Fluticasone Furoate (Fluticasone Furoate 100mcg 14 Puffs/Inhaler) 1 puffs INH DAILY [facility] Stop: 12/12/22 08:59 Last Admin: 11/12/22 08:30 Dose: 1 puffs Fluticasone Propionate (Fluticasone Propionate Na Spr 16 Gm Btl) 2 sprays NA QAM [facility] Stop: 12/12/22 08:59 Last Admin: 11/12/22 08:31 Dose: 2 sprays Furosemide (Furosemide 40 Mg Tab) 40 mg PO DAILY [facility] Stop: 12/12/22 08:59 Last Admin: 11/12/22 08:29 Dose: 40 mg Glucagon (Glucagon For Inj 1 Mg Vial) 1 mg SQ UD PRN; Protocol PRN Reason: Hypoglycemia Protocol Stop: 12/11/22 18:25 Glucose (Glucose 10 Tab/Tube) 4 - 8 tab PO UD PRN; Protocol PRN Reason: Hypoglycemia Treatment Stop: 12/11/22 18:25 Glucose (Glucose 40% Gel 15 Gm Tube) 15 - 30 gm PO UD PRN; Protocol PRN Reason: Hypoglycemia Protocol Stop: 12/11/22 18:25 Insulin Aspart (Insulin Aspart Per Unit Charge) 0 units SC Q6H NISHA; Protocol Stop: 12/12/22 11:59 Ipratropium [place] (Ipratropium [place] Nasal [place] 0.06% 15ml) 1 sprays MELISSA T ID [facility] Stop: 12/11/22 20:59 Last Admin: 11/12/22 08:37 Dose: 1 sprays Levothyroxine Sodium (Levothyroxine Sodium 88 Mcg Tablet) 88 mcg PO DAILYBB [facility] Stop: 12/12/22 06:29 Last Admin: 11/12/22 05:50 Dose: 88 mcg Losartan Potassium (Losartan Potassium 50 Mg Tab) 50 mg PO BID [facility] Stop: 12/11/22 20:59 Last Admin: 11/12/22 08:29 Dose: 50 mg Magnesium Hydroxide (Magnesium Hydroxide Susp 30 Ml Udc) 30 ml PO Q12H PRN PRN Reason: Constipation Stop: 12/11/22 18:25 Miscellaneous (Carbohydrates For Hypoglycemia ) 15 - 30 gm PO UD PRN PRN Reason: Hypoglycemia Protocol Stop: 12/11/22 18:25 Miscellaneous Information (Pharmacy Glycemic Mgmt Consult) 1 each N/A UD PRN PRN Reason: Consult Stop: 12/11/22 18:25 Nitroglycerin (Nitroglycerin Sl 0.4 Mg/Tab Tab) 0.4 mg SL Q5M PRN PRN Reason: Chest Pain Stop: 12/11/22 18:25 Oxycodone/Acetaminophen (Oxycodone/Acetaminophen 5mg/325mg Tab) 1 tab PO BID PRN PRN Reason: Pain, Severe Stop: 11/25/22 20:32 Pantoprazole Sodium (Pantoprazole 40 Mg Tab) 40 mg PO BID [facility] Stop: 12/11/22 20:59 Last Admin: 11/12/22 08:30 Dose: 40 mg Tamsulosin HCl (Tamsulosin Hcl 0.4 Mg Cap) 0.4 mg PO DAILY [facility] Stop: 12/12/22 08:59 Last Admin: 11/12/22 08:29 Dose: 0.4 mg Umeclidinium/Vilanterol (Umeclidinium/Vilanterol 62.5/25mcg 7 Puffs/Inhaler) 1 puffs INH DAILY [facility] Stop: 12/12/22 08:59 Last Admin: 11/12/22 08:31 Dose: 1 puffs Valacyclovir HCl (Valacyclovir Hcl 500 Mg Tablet) 500 mg PO PM [facility] Stop: 12/11/22 20:59 Last Admin: 11/11/22 21:22 Dose: 500 mg Verapamil HCl (Verapamil Hcl 180 Mg Tabcr) 180 mg PO QAM [facility] Stop: 12/12/22 08:59 Last Admin: 11/12/22 08:30 Dose: 180 mg Vitamin D (Cholecalciferol 1,000 Units 25 Mcg Tab) 2,000 units PO DAILY [facility] Stop: 12/12/22 08:59 Last Admin: 11/12/22 08:29 Dose: 2,000 units
--- NOTE | 2022-11-12 11:21 | Pharmacy Report ---
Pharmacy Glycemic Short Note 2 - Date of Service November 12, 2022 - Glycemic Short BSG Results (Last 24 hours): 11/11/22 11/11/22 11/12/22 14:55 20:01 05:19 Glucose 113 H 115 H POC Glucose 103 H OUTPATIENT ANTIDIABETIC REGIMEN: * Metformin 1000 mg PO BID * Glipizide 10 mg PO BID (this was supposed to be discontinued per PCP note from 07/2021) * Ozempic 2 mg SC once weekly * HbA1c: 6.8% (11/12/22) ASSESSMENT: * 77 yo M admitted on 11/11/22 secondary to presyncopal signs/symptoms. Pharmacy has been consulted to assist with inpatient glycemic management. Patient is a controlled Type 2 diabetic as an outpatient. Please refer to outpatient regimen and most recent HbA1c above. * Has been NPO since admission for a TTE that was completed this morning. BSGs have been 113-103-115 mg/dL. Has not received any insulin. * Currently ordered only bolus insulin based on weight/stress of 2. This is fine to continue and will monitor BSGs once patient starts eating. Continue to hold basal. Plan to resume home Metformin once closer to discharge. PLAN FOR INPATIENT GLYCEMIC CONTROL: * Hold outpatient oral diabetes medications * Basal insulin * None * Bolus insulin * NovoLog per scale ACHS or Q6hrs while NPO * Goal Range: Low 110 mg/dL - High 140 mg/dL * Correction Factor: 25 mg/dL/unit * Nutritional / Prandial insulin per carb ratio of 1 unit per 8 grams CHO consumed
[2022-11-12] MEDS ORDERED: INSULIN ASPART PER UNIT CHARGE SC SCH (12:00)
--- NOTE | 2022-11-12 13:05 | Cardiology Progress Note ---
Date of Service November 12, 2022 Assessment & Plan (1) Near syncope: (2) Wide-complex tachycardia: (3) REANNA on CPAP: (4) Nonobstructive atherosclerosis of coronary artery: Plan Patient is a 77-year-old male with complex history past tachyarrhythmias and near syncope. Now presents with sudden onset multiple episodes since Thursday. Currently being treating for dental abscess but suffered near syncopal event earlier today. While in ER had extended episode of wide-complex tachycardia question SVT versus ventricular tachycardia EKG with atrial pacing, biventricular heart block and prolonged QT Recommendations: Patient to be admitted and maintained on telemetry. Would not initiate antiarrhythmic therapy unless sustained events occur at this time. Interrogate pacemaker in a.m. for full measure recent event Echocardiogram to assess LV systolic function in the setting of arrhythmias Continue prehospital medication 11/12/2022 Recurrent wide-complex tachycardia question atypical AVNRT by pacer interrogation and rhythm strip review. Patient once again symptomatic. Episodes occurring while on verapamil and carvedilol. Discussed findings with EP We will recommend formal EP testing with patient scheduled tentatively for tomorrow afternoon N.p.o. after midnight Admission and Anticipated Discharge Date Admission Date: November 11, 2022 Subjective Patient seen and examined, chart reviewed. Once again episode today approximately 1 minute in duration of acute tachycardia with associated heart pounding and dizziness. Episode self terminated. No chest pain or worsening shortness of breath otherwise feels well. Physical Exam Constitutional: WD/WN, vitals as above Eyes: PERRL, conjunctivae normal, anicteric sclerae ENMT: external ear and nose normal, oropharynx normal Neck: trachea midline, no thyromegaly Respiratory: normal respiratory effort, lungs clear to auscultation Cardiovascular: Rate/Rhythm: regular rate and regular rhythm Heart Sounds: normal S1 and normal S2; no gallop and no murmur Palpation: normal PMI Vessels: normal carotid upstroke and radial pulses present; no JVD and no carotid bruit Extremities: no edema Chest (Breasts): Chest: + pacemaker Gastrointestinal (Abdomen): normal bowel sounds, soft, nontender, no hepatos plenomegaly Musculoskeletal: no cyanosis or clubbing, extremities motor strength 5/5 Skin: no rashes, warm and dry Neurologic: PERRL, EOMI, accommodation nl, no face palsy, no dysarthria Psychiatric: A+Ox3, euthymic affect Results & Data Vital Signs (Past 12 Hours) Vital Signs Temp Pulse Pulse Resp BP Pulse Ox O2 Del Method 11/12/22 11:30 36.8 C 83 18 143/76 H 97 Room Air 11/12/22 08:05 71 11/12/22 07:53 36.6 C 81 20 154/79 H 97 Room Air 11/12/22 02:43 36.6 C 72 18 166/93 H 96 Room Air Laboratory Results Laboratory Results - last 24 hr 11/11/22 11/11/22 11/11/22 14:55 14:55 14:55 WBC 7.54 RBC 4.50 L Hgb 13.9 L Hct 40.3 L MCV 89.6 MCH 30.9 MCHC 34.5 RDW Std Deviation 41.0 RDW Coeff of Kyleigh 12.5 Plt Count 214 MPV 10.0 Immature Gran % (Auto) 1.3 Neut % (Auto) 58.4 Lymph % (Auto) 25.7 Potter % (Auto) 11.4 Eos % (Auto) 2.8 Baso % (Auto) 0.4 Neut # (Auto) 4.40 Lymph # (Auto) 1.94 Potter # (Auto) 0.86 H Eos # (Auto) 0.21 Baso # (Auto) 0.03 Immature Gran # (Auto) 0.10 Sodium 136 Potassium 3.5 Chloride 99 Carbon Dioxide 29 Anion Gap 8 BUN 8 Creatinine 0.59 L Est Cr Clr Drug Dosing 126.7 Est GFR ( Amer) 114.0 Est GFR (Non-Af Amer) 98.3 BUN/Creatinine Ratio 13.6 Glucose 113 H POC Glucose Estimat Average Glucose Hemoglobin A1c Calcium 9.4 Phosphorus Magnesium 2.0 Total Bilirubin 0.8 AST 16 ALT 15 Alkaline Phosphatase 71 Troponin I High Sens 5.1 B-Natriuretic Peptide 34 Total Protein 7.1 Albumin 4.5 Globulin 2.6 Albumin/Globulin Ratio 1.7 TSH SARS-CoV-2 (PCR) Influenza Type A (PCR) Influenza Type B (PCR) RSV (RT-PCR) SARS-CoV-2, RNA, NAAT 11/11/22 11/11/22 11/11/22 14:55 17:18 19:14 WBC RBC Hgb Hct MCV MCH MCHC RDW Std Deviation RDW Coeff of Kyleigh Plt Count MPV Immature Gran % (Auto) Neut % (Auto) Lymph % (Auto) Potter % (Auto) Eos % (Auto) Baso % (Auto) Neut # (Auto) Lymph # (Auto) Potter # (Auto) Eos # (Auto) Baso # (Auto) Immature Gran # (Auto) Sodium Potassium Chloride Carbon Dioxide Anion Gap BUN Creatinine Est Cr Clr Drug Dosing Est GFR ( Amer) Est GFR (Non-Af Amer) BUN/Creatinine Ratio Glucose POC Glucose Estimat Average Glucose Hemoglobin A1c Calcium Phosphorus Magnesium Total Bilirubin AST ALT Alkaline Phosphatase Troponin I High Sens B-Natriuretic Peptide Total Protein Albumin Globulin Albumin/Globulin Ratio TSH 2.095 SARS-CoV-2 (PCR) NEGATIVE Influenza Type A (PCR) Negative Influenza Type B (PCR) Negative RSV (RT-PCR) Negative SARS-CoV-2, RNA, NAAT NEGATIVE 11/11/22 11/12/22 11/12/22 20:01 05:19 05:19 WBC 6.67 RBC 4.32 L Hgb 13.4 L Hct 38.4 L MCV 88.9 MCH 31.0 MCHC 34.9 RDW Std Deviation 40.0 RDW Coeff of Kyleigh 12.3 Plt Count 194 MPV 9.8 Immature Gran % (Auto) Neut % (Auto) Lymph % (Auto) Potter % (Auto) Eos % (Auto) Baso % (Auto) Neut # (Auto) Lymph # (Auto) Potter # (Auto) Eos # (Auto) Baso # (Auto) Immature Gran # (Auto) Sodium 134 L Potassium 3.8 Chloride 103 Carbon Dioxide 25 Anion Gap 6 BUN 7 Creatinine 0.60 Est Cr Clr Drug Dosing 124.5 Est GFR ( Amer) 113.2 Est GFR (Non-Af Amer) 97.7 BUN/Creatinine Ratio 11.7 Glucose 115 H POC Glucose 103 H Estimat Average Glucose Hemoglobin A1c Calcium 9.2 Phosphorus 3.8 Magnesium 2.0 Total Bilirubin AST ALT Alkaline Phosphatase Troponin I High Sens B-Natriuretic Peptide Total Protein Albumin Globulin Albumin/Globulin Ratio TSH SARS-CoV-2 (PCR) Influenza Type A (PCR) Influenza Type B (PCR) RSV (RT-PCR) SARS-CoV-2, RNA, NAAT 11/12/22 11/12/22 05:19 11:55 WBC RBC Hgb Hct MCV MCH MCHC RDW Std Deviation RDW Coeff of Kyleigh Plt Count MPV Immature Gran % (Auto) Neut % (Auto) Lymph % (Auto) Potter % (Auto) Eos % (Auto) Baso % (Auto) Neut # (Auto) Lymph # (Auto) Potter # (Auto) Eos # (Auto) Baso # (Auto) Immature Gran # (Auto) Sodium Potassium Chloride Carbon Dioxide Anion Gap BUN Creatinine Est Cr Clr Drug Dosing Est GFR ( Amer) Est GFR (Non-Af Amer) BUN/Creatinine Ratio Glucose POC Glucose 128 H Estimat Average Glucose 148 Hemoglobin A1c 6.8 H Calcium Phosphorus Magnesium Total Bilirubin AST ALT Alkaline Phosphatase Troponin I High Sens B-Natriuretic Peptide Total Protein Albumin Globulin Albumin/Globulin Ratio TSH SARS-CoV-2 (PCR) Influenza Type A (PCR) Influenza Type B (PCR) RSV (RT-PCR) SARS-CoV-2, RNA, NAAT
--- NOTE | 2022-11-12 14:56 | Electrocardiogram Report ---
Test Reason : Blood Pressure : / mmHG Vent. Rate : 071 BPM Atrial Rate : 071 BPM P-R Int : 164 ms QRS Dur : 164 ms QT Int : 432 ms P-R-T Axes : -10 -65 028 degrees QTc Int : 469 ms Atrial-paced rhythm Right bundle branch block Left anterior fascicular block Bifascicular block Moderate voltage criteria for LVH, may be normal variant Abnormal ECG When compared with ECG of 11-NOV-2022 14:50, Questionable change in initial forces of Septal leads Confirmed by Mitchell Mukherjee ([id number]) on 11/12/2022 2:55:27 PM Referred By: REFERRED SELF Confirmed By:Mitchell Mukherjee
[2022-11-12] MEDS: valACYclovir HCL 500 MG TABLET PO SCH (20:06)
[2022-11-12] MEDS: ASPIRIN 81 MG ECTAB PO SCH (20:08)
[2022-11-13] MEDS: LEVOTHYROXINE SODIUM 88 MCG TABLET PO SCH (05:42)
[2022-11-13 06:13] LABS: Hematocrit (blood only) 37.9 % (42.0-52.0); Hemoglobin 13.4 g/dl (14.0-18.0); Mean Corpuscular Hemoglobin 30.7 pg (25.0-34.0); Mean Corpuscular Hgb Conc 35.4 g/dL (32.0-36.0); Mean Corpuscular Volume 86.9 fL (80.0-100.0); Mean Platelet Volume 9.7 fL (9.4-12.4); Platelet Count 205 K/uL (130-400); RDW Coefficient of Variation 12.4 % (11.5-14.5); RDW Standard Deviation 39.4 fL (36.4-46.3); Red Blood Count 4.36 M/uL (4.70-6.10); White Blood Count 7.34 K/ul (4.8-10.8)
[2022-11-13 06:29] LABS: BUN Creatinine Ratio 19.4 (10-20); Calcium 8.9 mg/dl (8.6-10.3); Creatinine Clr Calc Pharmacy 101.1 ml/min; Est GFR (Non-African American) 90.6 ml/min; Magnesium 2.1 mg/dl (1.7-2.4); Phosphorus 4.4 mg/dl (2.5-4.9); Potassium 3.6 mmol/L (3.5-5.1)
[2022-11-13] MEDS: VERAPAMIL HCL 180 MG TABCR PO SCH (08:36)
[2022-11-13] MEDS: FAMOTIDINE 20 MG TAB PO SCH ×2 (08:36→20:03)
[2022-11-13] MEDS: FUROSEMIDE 40 MG TAB PO SCH (08:36)
[2022-11-13] MEDS: PANTOprazole 40 MG TAB PO SCH ×2 (08:36→20:04)
[2022-11-13] MEDS: CETIRIZINE HCL 10 MG TABLET PO SCH (08:36)
[2022-11-13] MEDS: LOSARTAN POTASSIUM 50 MG TAB PO SCH ×2 (08:36→20:04)
[2022-11-13] MEDS: ATORVASTATIN 40 MG TAB PO SCH (08:37)
[2022-11-13] MEDS: AMOXICILLIN/CLAVULANATE 875 MG TAB PO SCH ×2 (08:37→20:02)
[2022-11-13] MEDS: carvediloL 25 MG TAB PO SCH ×2 (08:37→20:04)
[2022-11-13] MEDS: CHOLECALCIFEROL 1,000 UNITS 25 MCG TAB PO SCH (08:37)
[2022-11-13] MEDS: TAMSULOSIN HCL 0.4 MG CAP PO SCH (08:37)
[2022-11-13] MEDS: FLUTICASONE PROPIONATE NA SPR 16 GM BTL SCH (08:38)
[2022-11-13] MEDS: IPRATROPIUM BROMIDE NASAL SPRAY 0.06% 15ML NAE SCH ×3 (08:39→20:02)
[2022-11-13] MEDS: UMECLIDINIUM/VILANTEROL 62.5/25MCG 7 PUFFS/INHALER INH SCH (08:43)
[2022-11-13] MEDS: FLUTICASONE FUROATE 100MCG 14 PUFFS/INHALER INH SCH (08:43)
[2022-11-13] MEDS: INSULIN ASPART PER UNIT CHARGE SC SCH ×4 (09:16→20:07)
--- NOTE | 2022-11-13 10:10 | Cardiology Progress Note ---
Date of Service November 13, 2022 Assessment & Plan (1) Near syncope: (2) Wide-complex tachycardia: (3) REANNA on CPAP: (4) Nonobstructive atherosclerosis of coronary artery: Plan Patient is a 77-year-old male with complex history past tachyarrhythmias and near syncope. Now presents with sudden onset multiple episodes since Thursday. Currently being treating for dental abscess but suffered near syncopal event earlier today. While in ER had extended episode of wide-complex tachycardia question SVT versus ventricular tachycardia EKG with atrial pacing, biventricular heart block and prolonged QT Recommendations: Patient to be admitted and maintained on telemetry. Would not initiate antiarrhythmic therapy unless sustained events occur at this time. Interrogate pacemaker in a.m. for full measure recent event Echocardiogram to assess LV systolic function in the setting of arrhythmias Continue prehospital medication 11/12/2022 Recurrent wide-complex tachycardia question atypical AVNRT by pacer interrogation and rhythm strip review. Patient once again symptomatic. Episodes occurring while on verapamil and carvedilol. Discussed findings with EP We will recommend formal EP testing with patient scheduled tentatively for tomorrow afternoon N.p.o. after midnight 11/13/2022 No further cardiac symptoms or arrhythmias. Patient hemodynamically stable but tentatively scheduled for EP study later today. Further recommendations pending study Admission and Anticipated Discharge Date Admission Date: November 11, 2022 Subjective Patient seen and examined, chart, medications, telemetry reviewed. No further arrhythmias overnight. Overall feels well. No chest pain or shortness of breath. Review of Systems Review of Systems: All systems reviewed & are unremarkable except as noted in Subjective Physical Exam Constitutional: WD/WN, vitals as above Eyes: PERRL, conjunctivae normal, anicteric sclerae ENMT: external ear and nose normal, oropharynx normal Neck: trachea midline, no thyromegaly Respiratory: normal respiratory effort, lungs clear to auscultation Cardiovascular: Rate/Rhythm: regular rate and regular rhythm Heart Sounds: normal S1 and normal S2; no gallop and no murmur Palpation: normal PMI Vessels: normal carotid upstroke and radial pulses present; no JVD and no carotid bruit Extremities: no edema Chest (Breasts): Chest: + pacemaker Gastrointestinal (Abdomen): normal bowel sounds, soft, nontender, no hepatosplenomegaly Musculoskeletal: no cyanosis or clubbing, extremities motor strength 5/5 Skin: no rashes, warm and dry Neurologic: PERRL, EOMI, accommodation nl, no face palsy, no dysarthria Psychiatric: A+Ox3, euthymic affect Results & Data Vital Signs (Past 12 Hours) Vital Signs Temp Pulse Pulse Resp BP Pulse Ox O2 Del Method 11/13/22 07:36 36.8 C 89 16 118/74 97 Room Air 11/13/22 03:51 36.7 C 74 18 138/80 96 Room Air 11/12/22 23:00 70 11/13/22 00:13 36.7 C 73 18 112/67 94 Room Air Laboratory Results Laboratory Results - last 24 hr 11/12/22 11/12/22 11/12/22 11:55 16:40 20:30 WBC RBC Hgb Hct MCV MCH MCHC RDW Std Deviation RDW Coeff of Kyleigh Plt Count MPV Sodium Potassium Chloride Carbon Dioxide Anion Gap BUN Creatinine Est Cr Clr Drug Dosing Est GFR ( Amer) Est GFR (Non-Af Amer) BUN/Creatinine Ratio Glucose POC Glucose 128 H 289 H 100 H Calcium Phosphorus Magnesium 11/13/22 11/13/22 11/13/22 00:09 05:28 05:28 WBC 7.34 RBC 4.36 L Hgb 13.4 L Hct 37.9 L MCV 86.9 MCH 30.7 MCHC 35.4 RDW Std Deviation 39.4 RDW Coeff of Kyleigh 12.4 Plt Count 205 MPV 9.7 Sodium 134 L Potassium 3.6 Chloride 99 Carbon Dioxide 28 Anion Gap 7 BUN 14 Creatinine 0.72 Est Cr Clr Drug Dosing 101.1 Est GFR ( Amer) 105.0 Est GFR (Non-Af Amer) 90.6 BUN/Creatinine Ratio 19.4 Glucose 123 H POC Glucose 117 H Calcium 8.9 Phosphorus 4.4 Magnesium 2.1 11/13/22 06:05 WBC RBC Hgb Hct MCV MCH MCHC RDW Std Deviation RDW Coeff of Kyleigh Plt Count MPV Sodium Potassium Chloride Carbon Dioxide Anion Gap BUN Creatinine Est Cr Clr Drug Dosing Est GFR ( Amer) Est GFR (Non-Af Amer) BUN/Creatinine Ratio Glucose POC Glucose 119 H Calcium Phosphorus Magnesium
[2022-11-13] MEDS ORDERED: MIDAZOLAM HCL 5 MG/ML 1 ML VIAL ONE (14:15)
[2022-11-13] MEDS ORDERED: ceFAZolin 330 MG/ML 1 GM VIAL ONE (14:15)
[2022-11-13] MEDS ORDERED: fentaNYL citrate PF 100 MCG/2 ML VIAL ONE ×2 (14:15→16:54)
--- NOTE | 2022-11-13 14:32 | History & Physical Bridge Note ---
Date of Service November 13, 2022 History & Physical Bridge Note I have examined the patient, reviewed the History & Physical and in the interval since the performance of the History & Physical I have noted the following changes of clinical significance: pt with syncope and WCT on telemetry; recommended an EPS with possible ablation prior to discharge; discussed with the patient about the procedure and potential risks and he expressed an understanding and consents signed.
--- NOTE | 2022-11-13 14:32 | Pre Anesthesia Assessment ---
Date of Service November 13, 2022 Pre Sedation Assessment Vital Signs Temp Pulse Pulse Pulse Resp BP BP 11/13/22 14:07 73 20 127/102 H 11/13/22 11:21 36.8 C 70 16 156/77 H 11/13/22 07:36 36.8 C 89 16 118/74 11/13/22 03:51 36.7 C 74 18 138/80 11/12/22 23:00 70 11/13/22 00:13 36.7 C 73 18 112/67 11/12/22 19:40 36.7 C 70 18 130/69 11/12/22 16:30 36.8 C 72 18 133/75 11/12/22 15:39 77 Pulse Ox O2 Del Method 11/13/22 14:07 94 Room Air 11/13/22 11:21 96 Room Air 11/13/22 07:36 97 Room Air 11/13/22 03:51 96 Room Air 11/12/22 23:00 11/13/22 00:13 94 Room Air 11/12/22 19:40 97 Room Air 11/12/22 16:30 95 Room Air 11/12/22 15:39 Cardiovascular RRR, no murmur, no edema Respiratory normal respiratory effort, lungs clear to auscultation Pre-Sedation Airway Assessment Smoking Status: Never smoker Hx Sleep Apnea: Yes Short, Thick Neck: No Thyromental Distance: > or= 3.5 Finger Breadths Oral Cavity: + WNL Mallampati Class: III ASA: ASA3 NPO Status Date of Last Intake of Fluids: 11/12/22 Date of Last Intake of Solid Food: 11/12/22 Procedure Planning Contraindications for Sedation: none Current Medications Reviewed: Yes Notes The planned sedation has been discussed with the patient. Informed Consent was obtained. I have identified the patient, determined the appropriateness of opal tion and have assessed the patient immediately prior to the procedure. All medicine(s) and interventions are by my order.
--- NOTE | 2022-11-13 14:35 | Electrocardiogram Report ---
Test Reason : Blood Pressure : / mmHG Vent. Rate : 071 BPM Atrial Rate : 071 BPM P-R Int : 252 ms QRS Dur : 170 ms QT Int : 486 ms P-R-T Axes : 036 -70 037 degrees QTc Int : 528 ms Atrial-paced rhythm with prolonged AV conduction Right bundle branch block Left anterior fascicular block Bifascicular block Moderate voltage criteria for LVH, may be normal variant Abnormal ECG When compared with ECG of 12-NOV-2022 05:48, QT has lengthened Confirmed by Regan Rooney ([id number]) on 11/13/2022 2:35:30 PM Referred By: REFERRED SELF Confirmed By:Jerson Rooney
[2022-11-13] MEDS ORDERED: LIDOCAINE 1% LOCAL 20 ML VIAL ONE (14:59)
[2022-11-13] MEDS ORDERED: ISOPROTERENOL HCL 0.2 MG/ML 5 ML AMP IV ONE (15:56)
--- NOTE | 2022-11-13 16:37 | Hospitalist Progress Note ---
Date of Service November 13, 2022 Assessment & Plan (1) Near syncope: Plan 77-year-old male with h/o SVT leading to presyncope/syncope status post pacemaker placement in 2020, T2DM, COPD, REANNA on CPAP, ascending aorta dilatation, HTN, CAD, CATARINA presented to the ED 11/11 with complaint of presyncope. He is being managed for the following: Wide-complex tachycardia Near syncope Patient came in with 6 episodes of lightheadedness/blurry vision/generalized weakness; 2 of them happened on the day of arrival; one of them happened in the ED which was 60 sec long wide-complex tachycardia per ED physician. It resolved spontaneously. Patient denies chest pain, denies palpitation during most of his episodes except for the last 1. Patient denies any acute change in his other review of symptoms or any changes in his medications lately. Admitting troponin and electrolytes fairly WNL, goal of potassium and magnesium 4.0 and 2.0 respectively Admitting EKG with atrial paced rhythm with a rate of 84. Cardiology evaluated on admission - echocardiogram ordered, continue prehospital medication, continue telemetry, pacemaker interrogation. Echo -LV is normal in size. Moderate concentric LVH. LV wall motion is normal. EF 60 to 65%. Septal motion is consistent with conduction abnormality. There is trace mitral regurg. There is trace tricuspid regurg. Per admitting provider: Upon med recs discussion with patient, patient denies taking amiodarone at home; OP med list doesn't show amiodarone; since his system med rec shows amiodarone 200 mg QAM; i dig into his past cardiology chart from 08/21/22 which states " History of symptomatic SVT treated with amiodarone 05/2020 but discontinued 02/2022 due to gait instability/weakness. " 11/12/22 Discussed w/ cardiology - arrhytmia again noted today. plan for EP eval likely tmrw PM, NPO after MN 11/13 No arrhythmia overnight. Pt laying in bed in NAD. Denies any complaints. Plan for EP eval today. Concern for black tarry stool: Patient complains of 2 episodes of black tarry stool, does endorse using Advil for hip pain which he stopped around 3 weeks ago per patient. Continue to monitor hemoglobin. Currently with no black tarry stool per patient. Hemoglobin seems to be around his baseline, admitting hemoglobin of 13.9. C/w home pepcid and ppi. Left dental abscess: Recently diagnosed at urgent care, visited his dental surgeon day of admission, on Augmentin for 10 days, has plan for teeth extraction on November 29 per patient. Continue Augmentin. Other chronic medical conditions: HTN, HLD, CAD, T2DM, CATARINA, cold sores (valtrex) --->> continue/resume home meds as and when able. Sliding scale insulin while in the hospital. DVT prophylaxis: Heparin subcu, Monitor hemoglobin closely. DNR/DNI Admission and Anticipated Discharge Date Admission Date: November 11, 2022 Subjective Pt seen in follow up of syncope, [place] Cardiology consulted Currently laying in bed in NAD, denies any chest pain or palpitations. No arrhy thmia overnight. No fevers, chills, no n/v or abd. pain. Discussed w/ cardiology - plan for EP eval today Review of Systems Review of Systems: All systems reviewed & are unremarkable except as noted in Subjective Physical Exam Physical Exam: GENERAL: Alert and oriented x3. NAD, on RA. HEENT: NC/AT. No pallor, no icterus. Pupils equal, round and reactive to light. Oral mucosa moist. NECK: No JVD, no neck masses. HEART: S1 and S2 heard. Regular rate and rhythm. no murmur, no gallop. Pacer noted left upper chest. RESPIRATORY: Normal AP diameter. No accessory muscle use. No wheezing, no crackles. ABDOMEN: Soft, bowel sounds present, nontender, no distention. NEURO: Awake and alert. Answers appropriately. No facial droop. Speech is clear. Obeys simple commands. Moves extremities. EXTREMITIES:no edema, no erythema seen. Results & Data Results & Data Vital Signs (Past 12 Hours) Vital Signs Temp Pulse Pulse Resp BP BP Pulse Ox 11/13/22 14:07 73 20 127/102 H 94 11/13/22 11:21 36.8 C 70 16 156/77 H 96 11/13/22 07:36 36.8 C 89 16 118/74 97 O2 Del Method 11/13/22 14:07 Room Air 11/13/22 11:21 Room Air 11/13/22 07:36 Room Air Laboratory Results 11/13/22 11/13/22 11/13/22 Range/Units 12:20 06:05 05:28 WBC (4.8-10.8) K/ul RBC (4.70-6.10) M/uL Hgb (14.0-18.0) g/dl Hct (42.0-52.0) % MCV (80.0-100.0) fL MCH (25.0-34.0) pg MCHC (32.0-36.0) g/dL RDW Std Deviation (36.4-46.3) fL RDW Coeff of Kyleigh (11.5-14.5) % Plt Count (130-400) K/uL MPV (9.4-12.4) fL Sodium 134 L (136-145) mmol/L Potassium 3.6 (3.5-5.1) mmol/L Chloride 99 (98-107) mmol/L Carbon Dioxide 28 (21-32) mmol/L Anion Gap 7 (3-11) BUN 14 (6-23) mg/dl Creatinine 0.72 (0.6-1.4) mg/dl Est Cr Clr Drug Dosing 101.1 ml/min Est GFR ( Amer) 105.0 ml/min Est GFR (Non-Af Amer) 90.6 ml/min BUN/Creatinine Ratio 19.4 (10-20) Glucose 123 H (70-99(Fasting)) mg/dl POC Glucose 118 H 119 H (70-99) mg/dl Calcium 8.9 (8.6-10.3) mg/dl Phosphorus 4.4 (2.5-4.9) mg/dl Magnesium 2.1 (1.7-2.4) mg/dl 11/13/22 11/13/22 11/12/22 Range/Units 05:28 00:09 20:30 WBC 7.34 (4.8-10.8) K/ul RBC 4.36 L (4.70-6.10) M/uL Hgb 13.4 L (14.0-18.0) g/dl Hct 37.9 L (42.0-52.0) % MCV 86.9 (80.0-100.0) fL MCH 30.7 (25.0-34.0) pg MCHC 35.4 (32.0-36.0) g/dL RDW Std Deviation 39.4 (36.4-46.3) fL RDW Coeff of Kyleigh 12.4 (11.5-14.5) % Plt Count 205 (130-400) K/uL MPV 9.7 (9.4-12.4) fL Sodium (136-145) mmol/L Potassium (3.5-5.1) mmol/L Chloride (98-107) mmol/L Carbon Dioxide (21-32) mmol/L Anion Gap (3-11) BUN (6-23) mg/dl Creatinine (0.6-1.4) mg/dl Est Cr Clr Drug Dosing ml/min Est GFR ( Amer) ml/min Est GFR (Non-Af Amer) ml/min BUN/Creatinine Ratio (10-20) Glucose (70-99(Fasting)) mg/dl POC Glucose 117 H 100 H (70-99) mg/dl Calcium (8.6-10.3) mg/dl Phosphorus (2.5-4.9) mg/dl Magnesium (1.7-2.4) mg/dl 11/12/22 Range/Units 16:40 WBC (4.8-10.8) K/ul RBC (4.70-6.10) M/uL Hgb (14.0-18.0) g/dl Hct (42.0-52.0) % MCV (80.0-100.0) fL MCH (25.0-34.0) pg MCHC (32.0-36.0) g/dL RDW Std Deviation (36.4-46.3) fL RDW Coeff of Kyleigh (11.5-14.5) % Plt Count (130-400) K/uL MPV (9.4-12.4) fL Sodium (136-145) mmol/L Potassium (3.5-5.1) mmol/L Chloride (98-107) mmol/L Carbon Dioxide (21-32) mmol/L Anion Gap (3-11) BUN (6-23) mg/dl Creatinine (0.6-1.4) mg/dl Est Cr Clr Drug Dosing ml/min Est GFR ( Amer) ml/min Est GFR (Non-Af Amer) ml/min BUN/Creatinine Ratio (10-20) Glucose (70-99(Fasting)) mg/dl POC Glucose 289 H (70-99) mg/dl Calcium (8.6-10.3) mg/dl Phosphorus (2.5-4.9) mg/dl Magnesium (1.7-2.4) mg/dl Medications Administered Current Inpatient Medications Acetaminophen (Acetaminophen 325 Mg Tab) 650 mg PO Q4H PRN PRN Reason: Pain or Fever Stop: 12/11/22 18:25 Al Hydrox/Mg Hydrox/Simethicone (Aluminum/Magnesium Susp 30 Ml Udc) 15 ml PO Q4H PRN PRN Reason: Dyspepsia Stop: 12/11/22 18:25 Amoxicillin/Clavulanate Potassium (Amoxicillin/Clavulanate 875 Mg Tab) 1 tab PO BIDM [facility]; Protocol Stop: 11/21/22 20:59 Last Admin: 11/13/22 08:37 Dose: 1 tab Aspirin (Aspirin 81 Mg Ectab) 81 mg PO HS [facility] Stop: 12/11/22 20:59 Last Admin: 11/12/22 20:08 Dose: 81 mg Atorvastatin Calcium (Atorvastatin 40 Mg Tab) 40 mg PO QAM [facility] Stop: 12/12/22 08:59 Last Admin: 11/13/22 08:37 Dose: 40 mg Carvedilol (Carvedilol 25 Mg Tab) 25 mg PO BID [facility] Stop: 12/11/22 20:59 Last Admin: 11/13/22 08:37 Dose: 25 mg Cetirizine HCl (Cetirizine Hcl 10 Mg Tablet) 10 mg PO QAM [facility] Stop: 12/12/22 08:59 Last Admin: 11/13/22 08:36 Dose: 10 mg Dextrose (Dextrose 50% 50 Ml Syringe) 25 - 50 ml IV UD PRN; Protocol PRN Reason: Hypoglycemia Protocol Stop: 12/11/22 18:25 Famotidine (Famotidine 20 Mg Tab) 20 mg PO BID [facility] Stop: 12/11/22 20:59 Last Admin: 11/13/22 08:36 Dose: 20 mg Fluticasone Furoate (Fluticasone Furoate 100mcg 14 Puffs/Inhaler) 1 puffs INH DAILY [facility] Stop: 12/12/22 08:59 Last Admin: 11/13/22 08:43 Dose: Not Given Fluticasone Propionate (Fluticasone Propionate Na Spr 16 Gm Btl) 2 sprays NA QAM [facility] Stop: 12/12/22 08:59 Last Admin: 11/13/22 08:38 Dose: 2 sprays Furosemide (Furosemide 40 Mg Tab) 40 mg PO DAILY [facility] Stop: 12/12/22 08:59 Last Admin: 11/13/22 08:36 Dose: 40 mg Glucagon (Glucagon For Inj 1 Mg Vial) 1 mg SQ UD PRN; Protocol PRN Reason: Hypoglycemia Protocol Stop: 12/11/22 18:25 Glucose (Glucose 10 Tab/Tube) 4 - 8 tab PO UD PRN; Protocol PRN Reason: Hypoglycemia Treatment Stop: 12/11/22 18:25 Glucose (Glucose 40% Gel 15 Gm Tube) 15 - 30 gm PO UD PRN; Protocol PRN Reason: Hypoglycemia Protocol Stop: 12/11/22 18:25 Insulin Aspart (Insulin Aspart Per Unit Charge) 0 units SC ACHS [facility]; Protocol Stop: 12/12/22 11:59 Last Admin: 11/13/22 12:49 Dose: Not Given Ipratropium [place] (Ipratropium [place] Nasal [place] 0.06% 15ml) 1 sprays MELISSA TID [facility] Stop: 12/11/22 20:59 Last Admin: 11/13/22 14:44 Dose: Not Given Levothyroxine Sodium (Levothyroxine Sodium 88 Mcg Tablet) 88 mcg PO DAILYBB [facility] Stop: 12/12/22 06:29 Last Admin: 11/13/22 05:42 Dose: 88 mcg Losartan Potassium (Losartan Potassium 50 Mg Tab) 50 mg PO BID [facility] Stop: 12/11/22 20:59 Last Admin: 11/13/22 08:36 Dose: 50 mg Magnesium Hydroxide (Magnesium Hydroxide Susp 30 Ml Udc) 30 ml PO Q12H PRN PRN Reason: Constipation Stop: 12/11/22 18:25 Miscellaneous (Carbohydrates For Hypoglycemia ) 15 - 30 gm PO UD PRN PRN Reason: Hypoglycemia Protocol Stop: 12/11/22 18:25 Miscellaneous Information (Pharmacy Glycemic Mgmt Consult) 1 each N/A UD PRN PRN Reason: Consult Stop: 12/11/22 18:25 Nitroglycerin (Nitroglycerin Sl 0.4 Mg/Tab Tab) 0.4 mg SL Q5M PRN PRN Reason: Chest Pain Stop: 12/11/22 18:25 Oxycodone/Acetaminophen (Oxycodone/Acetaminophen 5mg/325mg Tab) 1 tab PO BID PRN PRN Reason: Pain, Severe Stop: 11/25/22 20:32 Pantoprazole Sodium (Pantoprazole 40 Mg Tab) 40 mg PO BID NISHA Stop: 12/11/22 20:59 Last Admin: 11/13/22 08:36 Dose: 40 mg Tamsulosin HCl (Tamsulosin Hcl 0.4 Mg Cap) 0.4 mg PO DAILY NISHA Stop: 12/12/22 08:59 Last Admin: 11/13/22 08:37 Dose: 0.4 mg Umeclidinium/Vilanterol (Umeclidinium/Vilanterol 62.5/25mcg 7 Puffs/Inhaler) 1 puffs INH DAILY NISHA Stop: 12/12/22 08:59 Last Admin: 11/13/22 08:43 Dose: Not Given Valacyclovir HCl (Valacyclovir Hcl 500 Mg Tablet) 500 mg PO PM NISAH Stop: 12/11/22 20:59 Last Admin: 11/12/22 20:06 Dose: 500 mg Verapamil HCl (Verapamil Hcl 180 Mg Tabcr) 180 mg PO QAM [facility]ISHA Stop: 12/12/22 08:59 Last Admin: 11/13/22 08:36 Dose: 180 mg Vitamin D (Cholecalciferol 1,000 Units 25 Mcg Tab) 2,000 units PO DAILY NISHA Stop: 12/12/22 08:59 Last Admin: 11/13/22 08:37 Dose: 2,000 units
--- NOTE | 2022-11-13 17:37 | Post Anesthesia Assessment ---
Date of Service November 13, 2022 Post Sedation Assessment Vital Signs Temp Pulse Pulse Pulse Resp BP BP 11/13/22 14:07 73 20 127/102 H 11/13/22 11:21 36.8 C 70 16 156/77 H 11/13/22 07:36 36.8 C 89 16 118/74 11/13/22 03:51 36.7 C 74 18 138/80 11/12/22 23:00 70 11/13/22 00:13 36.7 C 73 18 112/67 11/12/22 19:40 36.7 C 70 18 130/69 Pulse Ox O2 Del Method 11/13/22 14:07 94 Room Air 11/13/22 11:21 96 Room Air 11/13/22 07:36 97 Room Air 11/13/22 03:51 96 Room Air 11/12/22 23:00 11/13/22 00:13 94 Room Air 11/12/22 19:40 97 Room Air Recovery Score Activity: Moves 4 extremities Respiration: Deep Breath/Cough Circulation: +/-20% PreAnes Value Consciousness: Fully Awake Oxygen Saturation: > 92% On Room Air Discharge Sedation Level of Care: Fast Track Phase II Post Sedation Plan On clinical assessment, the patient appears to have tolerated the sedation without complications. Patient is recovering as anticipated. Patient will continue to be monitored by nursing and may be discharged when sedation discharge criteria are met per below protocol. Upon Completions of procedure up to 15 minutes continue every 5 minute vital signs and the P.A.R. score; then discharge to a Phase I or Fast Track to Phase II per the following guidelines: * Discharge Patient to appropriate Phase II area if PAR is 8 or greater or return to pre- procedure baseline. The post - procedure orders will be as directed. * If PAR score is less than 8 or not return to pre-procedure baseline then patient will follow Phase I monitoring till PAR is reached for Phase II. The Phase I may be done in procedure room or may call to secure a Phase I area. * If naloxone or flumazenil are used for reversal, hold in Phase I for continue d monitoring from when last reversal dose was given for a minimum of 60 minutes or longer pending the nurse and/or physician discretion of patient condition before discharge to Phase II. Please call the Sedation Physician to re-evaluate and complete post-note for discharge to Phase II area. Do NOT discharge from procedure sedation or Phase 1 until post- sedation evaluation note is complete by procedure /sedation MD Sedation Discharge Instructions to be given to the patient at discharge to home.
--- NOTE | 2022-11-13 17:38 | Operative Report ---
Post Operative Report Pre & Post Diagnosis PRe: WCT Post: Atypical AVNRT Operation Date: 11/13/22 14:00 <No data on this case meets the specified criteria> I identified the patient and participated in the time-out.: Yes Procedure Operation Date: 11/13/22 14:00 Actual Procedures p EPS + Ablation for SVT Flutter - Allison Mireles DO s Drug Stimulation - Allison Mireles DO and device dual chamber ppm reprogramming u/s guidance venous access Surgeon Allison Mireles DO Route Jumper none Estimated Blood Loss 5 Findings Consistent with Post-Op Diagnosis Specimens none Description of Procedure see official report I attest to the content of the Intraoperative Record and any orders documented therein. Any exceptions are noted below.
[2022-11-13] MEDS: valACYclovir HCL 500 MG TABLET PO SCH (20:02)
[2022-11-13] MEDS: ASPIRIN 81 MG ECTAB PO SCH (20:04)
[2022-11-14] MEDS: LEVOTHYROXINE SODIUM 88 MCG TABLET PO SCH (05:54)
[2022-11-14 07:14] LABS: Hematocrit (blood only) 39.6 % (42.0-52.0); Hemoglobin 13.7 g/dl (14.0-18.0); Mean Corpuscular Hemoglobin 30.4 pg (25.0-34.0); Mean Corpuscular Hgb Conc 34.6 g/dL (32.0-36.0); Mean Platelet Volume 9.9 fL (9.4-12.4); Platelet Count 202 K/uL (130-400); RDW Coefficient of Variation 12.4 % (11.5-14.5); RDW Standard Deviation 39.7 fL (36.4-46.3)
[2022-11-14 07:31] LABS: BUN Creatinine Ratio 16.1 (10-20); Creatinine Clr Calc Pharmacy 78.6 ml/min; Est GFR (African American) 92.1 ml/min; Est GFR (Non-African American) 79.5 ml/min; Potassium 3.8 mmol/L (3.5-5.1)
[2022-11-14] MEDS: INSULIN ASPART PER UNIT CHARGE SC SCH ×2 (08:06→12:00)
[2022-11-14] MEDS: FLUTICASONE PROPIONATE NA SPR 16 GM BTL SCH (08:07)
[2022-11-14] MEDS: TAMSULOSIN HCL 0.4 MG CAP PO SCH (08:09)
[2022-11-14] MEDS: AMOXICILLIN/CLAVULANATE 875 MG TAB PO SCH (08:09)
[2022-11-14] MEDS: FUROSEMIDE 40 MG TAB PO SCH (08:09)
[2022-11-14] MEDS: PANTOprazole 40 MG TAB PO SCH (08:09)
[2022-11-14] MEDS: LOSARTAN POTASSIUM 50 MG TAB PO SCH (08:09)
[2022-11-14] MEDS: carvediloL 25 MG TAB PO SCH (08:09)
[2022-11-14] MEDS: FAMOTIDINE 20 MG TAB PO SCH (08:09)
[2022-11-14] MEDS: CHOLECALCIFEROL 1,000 UNITS 25 MCG TAB PO SCH (08:09)
[2022-11-14] MEDS: CETIRIZINE HCL 10 MG TABLET PO SCH (08:10)
[2022-11-14] MEDS: VERAPAMIL HCL 180 MG TABCR PO SCH (08:10)
[2022-11-14] MEDS: ATORVASTATIN 40 MG TAB PO SCH (08:10)
[2022-11-14] MEDS: IPRATROPIUM BROMIDE NASAL SPRAY 0.06% 15ML NAE SCH ×2 (08:11→15:08)
[2022-11-14] MEDS: FLUTICASONE FUROATE 100MCG 14 PUFFS/INHALER INH SCH (08:15)
[2022-11-14] MEDS: UMECLIDINIUM/VILANTEROL 62.5/25MCG 7 PUFFS/INHALER INH SCH (08:15)
--- NOTE | 2022-11-14 11:19 | Cardiology Progress Note ---
Date of Service November 14, 2022 Assessment & Plan (1) Near syncope: (2) Wide-complex tachycardia: Plan: Due to atrial arrhythmias (3) REANNA on CPAP: (4) Nonobstructive atherosclerosis of coronary artery: Plan Patient is a 77-year-old male with complex history past tachyarrhythmias and near syncope. Now presents with sudden onset multiple episodes since Thursday. Currently being treating for dental abscess but suffered near syncopal event earlier today. While in ER had extended episode of wide-complex tachycardia question SVT versus ventricular tachycardia EKG with atrial pacing, biventricular heart block and prolonged QT Recommendations: Patient to be admitted and maintained on telemetry. Would not initiate antiarrhythmic therapy unless sustained events occur at this time. Interrogate pacemaker in a.m. for full measure recent event Echocardiogram to assess LV systolic function in the setting of arrhythmias Continue prehospital medication 11/12/2022 Recurrent wide-complex tachycardia question atypical AVNRT by pacer interrogation and rhythm strip review. Patient once again symptomatic. Episodes occurring while on verapamil and carvedilol. Discussed findings with EP We will recommend formal EP testing with patient scheduled tentatively for tomorrow afternoon N.p.o. after midnight 11/13/2022 No further cardiac symptoms or arrhythmias. Patient hemodynamically stable but tentatively scheduled for EP study later today. Further recommendations pending study 11/14/2022 Patient underwent electrophysiology testing last evening. Arrhythmias confirmed as not ventricular in origin. 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 Note patient not on amiodarone, med rec inaccurate Outpatient follow-up to be arranged with cardiology. Patient stable to proceed with planned dental extraction 11/29/2022 Admission and Anticipated Discharge Date Admission Date: November 11, 2022 Subjective Patient seen and examined, chart, medications, telemetry reviewed. Overall feels well no further arrhythmias on telemetry. Access sites both groins healing well Review of Systems Review of Systems: All systems reviewed & are unremarkable except as noted in Subjective Physical Exam Constitutional: WD/WN, vitals as above Eyes: PERRL, conjunctivae normal, anicteric sclerae ENMT: external ear and nose normal, oropharynx normal Neck: trachea midline, no thyromegaly Respiratory: normal respiratory effort, lungs clear to auscultation Cardiovascular: Rate/Rhythm: regular rate and regular rhythm Heart Sounds: normal S1 and normal S2; no gallop and no murmur Palpation: normal PMI Vessels: normal carotid upstroke and radial pulses present; no JVD and no carotid bruit Extremities: no edema Chest (Breasts): Chest: + pacemaker Gastrointestinal (Abdomen): normal bowel sounds, soft, nontender, no hepatosplenomegaly Musculoskeletal: no cyanosis or clubbing, extremities motor strength 5/5 Skin: no rashes, warm and dry Neurologic: PERRL, EOMI, accommodation nl, no face palsy, no dysarthria Psychiatric: A+Ox3, euthymic affect Results & Data Vital Signs (Past 12 Hours) Vital Signs Temp Pulse Pulse Resp BP BP Pulse Ox 11/14/22 11:06 36.8 C 72 20 136/72 95 11/14/22 07:51 73 11/14/22 07:08 36.7 C 70 18 146/76 H 91 11/14/22 02:29 36.8 C 71 19 136/69 94 O2 Del Method 11/14/22 11:06 Room Air 11/14/22 07:51 11/14/22 07:08 Room Air 11/14/22 02:29 Room Air Laboratory Results Laboratory Results - last 24 hr 11/13/22 11/13/22 11/13/22 12:20 18:14 20:00 WBC RBC Hgb Hct MCV MCH MCHC RDW Std Deviation RDW Coeff of Kyleigh Plt Count MPV Sodium Potassium Chloride Carbon Dioxide Anion Gap BUN Creatinine Est Cr Clr Drug Dosing Est GFR ( Amer) Est GFR (Non-Af Amer) BUN/Creatinine Ratio Glucose POC Glucose 118 H 113 H 103 H Calcium 11/14/22 11/14/22 11/14/22 06:29 06:29 07:07 WBC 9.40 RBC 4.50 L Hgb 13.7 L Hct 39.6 L MCV 88.0 MCH 30.4 MCHC 34.6 RDW Std Deviation 39.7 RDW Coeff of Kyleigh 12.4 Plt Count 202 MPV 9.9 Sodium 133 L Potassium 3.8 Chloride 98 Carbon Dioxide 30 Anion Gap 5 BUN 15 Creatinine 0.93 Est Cr Clr Drug Dosing 78.6 Est GFR ( Amer) 92.1 Est GFR (Non-Af Amer) 79.5 BUN/Creatinine Ratio 16.1 Glucose 139 H POC Glucose 132 H Calcium 9.0 11/14/22 11:08 WBC RBC Hgb Hct MCV MCH MCHC RDW Std Deviation RDW Coeff of Kyleigh Plt Count MPV Sodium Potassium Chloride Carbon Dioxide Anion Gap BUN Creatinine Est Cr Clr Drug Dosing Est GFR ( Amer) Est GFR (Non-Af Amer) BUN/Creatinine Ratio Glucose POC Glucose 119 H Calcium
--- NOTE | 2022-11-14 11:57 | Pharmacy Report ---
Pharmacy Glycemic Sign Off Nt - Date of Service November 14, 2022 - Assessment & Plan ASSESSMENT: * Pharmacy was consulted by Dr. Hernandez on 11/11/22 for glycemic control and to write orders per [facility] inpatient glycemic control protocol. * Major changes made by pharmacy to antidiabetic regimen include: * Holding outpatient regimen and starting correctional/prandial insulin only * Patient has been receiving/requiring < 10 units of insulin per day for adequate glycemic control * BSGs ranging 103-132 mg/dl * Regimen has required no adjustments since admission * Do not anticipate further changes in patient status that would quickly deteriorate glycemic control (i.e. patient to be NPO for upcoming procedure, steroids tapering, starting tube feedings, etc). PLAN FOR INPATIENT GLYCEMIC CONTROL: * Discontinue bolus insulin and blood sugar checks * Resume home metformin 1000 mg PO BIDM * Patient no longer takes glipizide at home * Pharmacy is signing off of glycemic consult and will no longer be making adjustments to inpatient regimen. Please feel free to re-consult if needed. Thank you.
--- NOTE | 2022-11-14 11:58 | Electrocardiogram Report ---
Test Reason : Blood Pressure : / mmHG Vent. Rate : 071 BPM Atrial Rate : 071 BPM P-R Int : 202 ms QRS Dur : 172 ms QT Int : 482 ms P-R-T Axes : 041 -68 053 degrees QTc Int : 523 ms Atrial-paced rhythm Left axis deviation Left ventricular hypertrophy with QRS widening and repolarization abnormality Right bundle branch block Abnormal ECG When compared with ECG of 13-NOV-2022 05:37, No significant change Confirmed by Cornelius Clayton ([id number]) on 11/14/2022 11:58:27 AM Referred By: REFERRED SELF Confirmed By:Cornelius Clayton
--- NOTE | 2022-11-14 14:18 | Communication Note ---
Date of Service: November 14, 2022 Called to see patient who were on initial standing felt on returning to chair feeling slightly dizzy head spinning. Went back to bed with symptoms resolving. Now without complaints. No arrhythmias on Blood pressure on checks are normal. Blood sugar normal Carotid duplex 2020 without obstruction Plan observe additional hour ambulate and if remaining stable discharged home with plans as prior
--- NOTE | 2022-11-14 15:59 | Discharge Summary ---
Date of Service November 14, 2022 Admission HPI Per Admitting Provider 77-year-old male with PMH of SVT leading to near syncope/syncope status post pacemaker placement in 2020, T2DM, COPD, REANNA on CPAP, ascending aorta dilatation, HTN, CAD, CATARINA presented to the ED 11/11 with complaint of presyncope. 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 Patient denies any aura/nausea/dry heaves/vomiting/sweating/palpitations or feeling of heart racing prior to presyncopal events, no loss of consciousness or involuntary movements, no chest pain per patient. Patient denies any flulike illness or acute changes in his bowel or bladder habit in the last 1 month. Patient does report 2 episodes of black tarry stool in the last 1 month which resolved on its own, patient does have hip pain for which he takes on and off Advil and he stopped taking them about 3 weeks ago. He reports his BLE swelling has been stable lately. 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 Patient denies smoking/using alcohol/using recreational drugs. Medications list were reviewed with the patient, plan of care discussed, he was understanding and was agreeable. DNR/DNI per my discussion with the patient. Admission Exam Per Admitting Provider GENERAL: Alert and oriented x3. NAD, on RA. HEENT: No pallor, no icterus. Pupils equal, round and reactive to light. Oral mucosa moist. NECK: No JVD, no neck masses. HEART: S1 and S2 heard. Regular rate and rhythm. + murmur, no gallop. Pacer noted left upper chest. RESPIRATORY SYSTEM: Normal AP diameter. No accessory muscle use. No wheezing, no crackles. ABDOMEN: Soft, bowel sounds present, nontender, no distention. CENTRAL NERVOUS SYSTEM: No facial droop. Speech is clear. Obeys simple commands. Moves extremities. EXTREMITIES: 1+ ble edema, no erythema seen. 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 NAD, on RA. HEENT: NC/AT. No pallor, no icterus. Pupils equal, round and reactive to light. Oral mucosa moist. NECK: No JVD, no neck masses. HEART: S1 and S2 heard. Regular rate and rhythm. no murmur, no gallop. Pacer noted left upper chest. RESPIRATORY: Normal AP diameter. No accessory muscle use. No wheezing, no aircraft time clerk ckles. ABDOMEN: Soft, bowel sounds present, nontender, no distention. NEURO: Awake and alert. Answers appropriately. No facial droop. Speech is clear. Obeys simple commands. Moves extremities. EXTREMITIES:no edema, no erythema seen. Discharge Data Allergies Allergy/AdvReac Type Severity Reaction Status Date / Time iodine Allergy Intermediate FULL BODY Verified 11/11/22 16:48 ITCHING povidone-iodine Allergy Intermediate Rash Verified 11/11/22 16:48 [From Betadine] shellfish derived Allergy Intermediate FULL BODY Verified 11/11/22 16:48 ITCHING Consultations 11/11/22 17:24 Consult Cardiology Routine ED Decision to Admit Stat Procedures Performed Operation Date: 11/13/22 14:00 Actual Procedures p EPS + Ablation for SVT Flutter - Allison Mireles DO s Drug Stimulation - Allison Mireles DO Ordered Studies 11/11/22 16:14 CT head/brain wo con Stat FINDINGS: Brain parenchyma: There is age-related involutional change noting mild subcortical and periventricular microangiopathic disease. There is no hemorrhage, mass effect, or evidence of acute territorial ischemia by CT criteria. Villagomez-white matter differentiation is preserved. No extra-axial fluid collection is seen. Ventricles, sulci, cisterns: Prominent secondary to involutional change. Intracranial vasculature: There is atherosclerotic calcification of the cavernous carotid and vertebral arteries. Calvarium: Unremarkable. Sinuses and mastoids: The visualized paranasal sinuses are clear. The mastoid air cells are well pneumatized. Orbits: The bony orbits are grossly intact. There are bilateral ocular lens implants. IMPRESSION: There is no hemorrhage, mass effect, or evidence of acute territorial ischemia by CT criteria. 11/13/22 06:45 EP Lab Images for PACS ONCE Hospital Course (1) Near syncope: Plan 77-year-old male with h/o SVT leading to presyncope/syncope status post pacemaker placement in 2020, T2DM, COPD, REANNA on CPAP, ascending aorta dilatation, HTN, CAD, CATARINA presented to the ED 11/11 with complaint of presyncope. 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 It resolved spontaneously. Patient denies chest pain, denies palpitation during most of his episodes except for the last 1. Patient denies any acute change in his other review of symptoms or any changes in his medications lately. Admitting troponin and electrolytes fairly WNL, goal of potassium and magnesium 4.0 and 2.0 respectively Admitting EKG with atrial paced rhythm with a rate of 84. Cardiology evaluated on admission - echocardiogram ordered, continue prehospital medication, continue telemetry, pacemaker interrogation. Echo -LV is normal in size. Moderate concentric LVH. LV wall motion is normal. EF 60 to 65%. Septal motion is consistent with conduction abnormality. There is trace mitral regurg. There is trace tricuspid regurg. Per admitting provider: Upon med recs discussion with patient, patient denies taking amiodarone at home; OP med list doesn't show amiodarone; since his system med rec shows amiodarone 200 mg QAM; i dig into his past cardiology chart from 08/21/22 which states " History of symptomatic SVT treated with amiodarone 05/2020 but discontinued 02/2022 due to gait instability/weakness. " 11/12/22 Discussed w/ cardiology - arrhytmia again noted today. plan for EP eval likely tmrw PM, NPO after MN 11/13 No arrhythmia overnight. Pt laying in bed in NAD. Denies any complaints. Plan for EP eval today. 11/14 - Per cardiology - Patient underwent electrophysiology testing last evening. Arrhythmias confirmed as not ventricular in origin. 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 Note patient not on amiodarone, med rec inaccurate Outpatient follow-up to be arranged with cardiology. Concern for black tarry stool: Patient complains of 2 episodes of black tarry stool, does endorse using Advil for hip pain which he stopped around 3 weeks ago per patient. Continue to monitor hemoglobin. Currently with no black tarry stool per patient. Hemoglobin seems to be around his baseline, admitting hemoglobin of 13.9. C/w home pepcid and ppi. Left dental abscess: Recently diagnosed at urgent care, visited his dental surgeon day of admission, on Augmentin for 10 days, has plan for teeth extraction on November 29 per patient. Continue Augmentin. Other chronic medical conditions: HTN, HLD, CAD, T2DM, CATARINA, cold sores (valtrex) --->> continue/resume home meds as and when able. Sliding scale insulin while in the hospital. 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 You will also need to follow-up with cardiology, you will be contacted about the appointment. There were no medication changes made. Continue taking carvedilol 25 mg twice a day and verapamil 180 mg daily. Pending Studies at Discharge: No Stand-Alone Forms: My [facility] CEL-SCI, Smoking Cessation Medications and DC Order Prescriptions: Continued valacyclovir 500 mg tablet 500 mg PO PM acetaminophen 325 mg Tablet 650 mg PO Q4H PRN (Reason: pain) Qty: 50 0RF glipizide 5 mg tablet 10 mg PO AMPM atorvastatin 40 mg tablet 40 mg PO QAM metformin 1,000 mg tablet 1,000 mg PO BID aspirin 81 mg Tablet,Delayed Release (Dr/Ec) 81 mg PO HS omeprazole 20 mg capsule,delayed release(DR/EC) 20 mg PO BID omega 4-whs-nsr-fish oil [Fish Oil] 360-1,200 mg Capsule,Delayed Release(Dr/Ec) 1 cap PO TIDM fluticasone propionate 50 mcg/actuation spray,suspension 2 spray INTRANASAL QAM Ozempic 1 mg/dose (2 mg/1.5 mL) pen injector 2 mg SUBCUT WK Rx Instructions: TAKE THIS MED EVERY thursday cetirizine 10 mg Tablet 10 mg PO QAM losartan 50 mg Tablet 50 mg PO BID tadalafil 5 mg Tablet 5 mg PO DAILY levothyroxine 88 mcg Tablet 88 mcg PO QAM furosemide [Lasix] 40 mg Tablet 40 mg PO DAILY carvedilol 25 mg tablet 25 mg PO BID verapamil 180 mg capsule,ext rel. pellets 24 hr 180 mg PO QAM oxycodone-acetaminophen 5-325 mg tablet 1 tab PO BID PRN (Reason: Pain, Severe) famotidine 20 mg Tablet 20 mg PO DAILY tamsulosin [Flomax] 0.4 mg Capsule 0.4 mg PO DAILY ipratropium bromide 21 mcg (0.03 %) spray,non-aerosol 2 spray INTRANASAL TID amoxicillin-pot clavulanate 875-125 mg tablet 1 tab PO BID Rx Instructions: STARTED 11/09/22 FOR 10 DAYS, PER PT "THE ORAL SURGEON IS ADDING 5 MORE DAYS TO SCRIPT". cholecalciferol (vitamin D3) [Vitamin D3] 50 mcg (2,000 unit) Capsule 50 mcg PO DAILY Benefiber Sugar Free (dextrin) 3 gram/4 gram Powder 1 packet PO DAILY Rx Instructions: mix into at least 4 oz water or juice before administering Trelegy Ellipta 100-62.5-25 mcg Blister With Device 1 inh INHALATION DAILY Discontinued amiodarone 200 mg tablet 200 mg PO QAM Discharge Orders: Discharge Order (Routine); Ordered 11/14/22 Ordered By: Abad Moralez/Other Patient Handouts: Managing Type 2 Diabetes Admission Data Admit Date/Time: 11/11/22 18:12 Attending Provider: Abad Paz Admit Provider: Debra Hernandez Primary Care Provider: Oliver,Tip S. Other Providers: Debra Hernandez ; Pramod Brown Other Interventions: Discharge Summary Assessment (RN) Last Done: 11/14/22 16:01
[2022-11-14] MEDS ORDERED: metFORMIN HCL 500 MG TAB PO SCH (17:00)
== END 2022-11-14 17:01 | disposition home or self-care (01) | DRG 309 ==
LOC: ED 14:06 → SUATTDRO 18:12 → 2E 18:12

== ENCOUNTER 2023-11-06 10:50 | Inpatient (IN) ==
--- NOTE | 2023-11-06 12:21 | Emergency Department Note ---
Impression & Plan Syncope, V-tach ED Provider Note NAME: Ann BLACK AGE: 78 SEX: M : 1945 ARRIVES VIA: Walk-In INFORMANT: [Patient] ED PROVIDER(S): [Christopher Lund MD] CHIEF COMPLAINT: Syncope HISTORY OF PRESENT ILLNESS: Patient is a 78-year-old male who states that yesterday, he was noticing some occasional bouts of lightheadedness and dizziness. Today, a short time ago, he began to feel strange in the head. His vision was fuzzy, he was lightheaded. The patient felt faint. He states he must have passed out briefly because he found himself hanging off the edge of the washer. Luckily, his arm caught him and he did not suffer any trauma. There was no chest pain, he was not sweaty. He was not short of breath. He may have noticed some palpitations. The patient checked his blood sugar afterwards and it was 108. His vital signs by his home monitor did not show any significant abnormalities. The patient does have a pacemaker, he has a history of V. tach, he is concerned that possibly, dysrhythmia caused his event today. The patient states he has otherwise been at baseline health. There has been no cough or congestion. No fever. No vomiting or diarrhea. PMHx/PSHx/Social Hx: See Below PHYSICAL EXAM: GENERAL: Patient is in no acute distress. HEENT: No acute trauma, normocephalic atraumatic, mucous membranes moist, no nasal congestion. NECK: No stridor, no adenopathy, no meningismus, trachea is midline. LUNGS: Clear to auscultation bilaterally, no wheeze, no rhonchi, breath sounds equal. HEART: Without murmurs gallops or rubs, regular rate and rhythm. ABDOMEN: Soft, nontender, no peritonitis. EXTREMITIES: No cyanosis, full range of motion of all the joints without pain or difficulty. NEUROLOGIC: Oriented x 3, no acute motor or sensory deficits, no focal weakness. SKIN: No jaundice, no diaphoresis. DIFFERENTIAL DIAGNOSIS: Dysrhythmia, vasovagal syncope, anemia, electrolyte imbalance, among others. EMERGENCY DEPARTMENT PROCEDURES: MEDICAL DECISION MAKING: There is no leukocytosis or concerning anemia. There is a normal platelet count. No renal failure or significant electrolyte abnormality. No concerning liver enzyme elevation. The patient appeared to be in a euthyroid state. Urinalysis did not show findings of infection. ECG showed an atrial pacemaker, no dysrhythmia. Cardiac enzyme testing x 1 is not consistent with acute cardiac injury. Chest film does not show pneumonia or CHF. Pacemaker analysis as per the rep showed recent runs of V. tach, the longest of which was this morning. The patient presents with syncope. He appears to be having bouts of V. tach. This of course would explain his complaints and the syncopal event today. I spoke with Dr. Brown of cardiology. Admission is warranted. For now, no new medications to be administered. During the patient's hospital stay, he was given a 500 cc saline bolus. I spoke with the patient about his findings, he understands the need for admission. Case management was consulted. The on-call hospitalist was consulted. Prior/Outside records/notes reviewed: None ECG per my interpretation: Indication was syncope. The ECG shows an atrial paced rhythm with a prolonged AV conduction. The rate is 75. There is a right bundle branch block. There is no acute ST elevation, no PVCs. The QTc is 489. Continuous Cardiac Monitoring per my interpretation: An order was placed for continuous cardiac monitoring. The monitor shows a rate of 72 with atrial pacing. Imaging/x-ray results per my interpretation: Chest x-ray does not show mediastinal widening, pneumonia or pneumothorax. Chronic Medical/Social conditions affecting care: History of pacemaker placement, advanced age, history of V. tach. Care/Management discussed with: Cardiology-Dr. Brown. Case management and the on-call hospitalist. Level of care consideration(s): After review of the information above and other included data: --I believe the patient requires escalation of care to admission DISPOSITION: Admission Past Med/Surg History Problem List V-tach (Acute) Syncope (Acute) History of pacemaker Near syncope Syncope (Acute) HTN (hypertension) (Acute) Blood glucose elevated (Acute) SVT (supraventricular tachycardia) (Acute) Wide-complex tachycardia (Acute) Acute hypotension (Acute) Syncope and collapse (Acute) Laceration of right hand (Acute) On amiodarone therapy Ventricular tachycardia (Acute) Diabetes mellitus, type II Ascending aorta dilatation pt unaware Nonobstructive atherosclerosis of coronary artery follows with Dr. Candelario REANNA on CPAP Hypertension HLD (hyperlipidemia) GERD (gastroesophageal reflux disease) Medical History Hx of cold sores Kidney stones hx of Hypothyroidism Neuropathy right leg Pacemaker Medtronic > placed for SVT > placed in May 2020 > last checked over phone approx September 2021 Surgical History Hx of left cataract extraction History of cystoscopy History of repair of rotator cuff bilat Hx of surgical procedure right biceps tendon repair History of arthroscopy right knee ACL History of esophagogastroduodenoscopy (EGD) History of colonoscopy History of appendectomy Hx of nasal septoplasty History of partial colectomy pre-cancerous area removed History of tonsillectomy S/p nephrectomy right > post trampoline accident age 19 H/O cardiac catheterization 2019 > no stents Family History Mother Colorectal cancer Other Lung cancer Social History Smoking Status: Former smoker Tobacco Type: Cigarettes Second Hand Exposure: No; Do You Dip or Chew Tobacco: No; Tobacco Cessation Education Requested by Patient: No Hx Alcohol Use: Yes Alcohol type: beer Alcohol Intake Frequency: 2-4 x/Month Hx Substance Use: No Preferred Language: Wolof Communication Ability: Effective 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 Beliefs That Will Affect Care: None Current Living Situation: Family Current Living Situation Comment: son lives with pt Other Information That Helps Us Care for You: No Feels Safe at Home: Yes Safety Concerns: Feels Safe At This Time Assistive Devices: Cane Allergies Allergies Allergy/AdvReac Type Severity Reaction Status Date / Time iodine Allergy Intermediate FULL BODY Verified 11/06/23 13:28 ITCHING povidone-iodine Allergy Intermediate Rash Verified 11/06/23 13:28 [From Betadine] shellfish derived Allergy Intermediate FULL BODY Verified 11/06/23 13:28 ITCHING Home Meds Home Medications Medication Instructions Recorded Confirmed aspirin 81 mg tablet,delayed 81 mg PO HS 08/13/19 11/06/23 release atorvastatin 40 mg tablet 40 mg PO QAM 08/13/19 11/06/23 fluticasone propionate 50 2 spray intranasal QAM 08/13/19 11/06/23 mcg/actuation nasal spray,suspension metformin 1,000 mg tablet 1,000 mg PO BID 08/13/19 11/06/23 omega-3 360 it-gcm-xqe-fish oil 1 cap PO DAILY 08/13/19 11/06/23 1,200 mg capsule,delayed release (Fish Oil) valacyclovir 500 mg tablet 500 mg PO PM 05/14/20 11/06/23 cetirizine 10 mg tablet 10 mg PO QAM 06/24/20 11/06/23 losartan 50 mg tablet 50 mg PO BID 02/05/21 11/06/23 tadalafil 5 mg tablet 5 mg PO DAILY 02/05/21 11/06/23 levothyroxine 88 mcg tablet 88 mcg PO QAM 12/03/21 11/06/23 carvedilol 25 mg tablet 25 mg PO DAILY 11/11/22 11/06/23 cholecalciferol (vitamin D3) 50 50 mcg PO DAILY 11/11/22 11/06/23 mcg (2,000 unit) capsule (Vitamin D3) famotidine 20 mg tablet 20 mg PO DAILY 11/11/22 11/06/23 furosemide 40 mg tablet (Lasix) 40 mg PO DAILY 11/11/22 11/06/23 ipratropium bromide 21 mcg (0.03 2 spray intranasal TID 11/11/22 11/06/23 %) nasal spray tamsulosin 0.4 mg capsule (Flomax) 0.4 mg PO DAILY 11/11/22 11/06/23 verapamil 180 mg 24 hr 180 mg PO QAM 11/11/22 11/06/23 capsule,extended release wheat dextrin 3 gram/4 gram oral 1 packet PO DAILY 11/11/22 11/06/23 powder (Benefiber Sugar Free (dextrin)) mirabegron 25 mg tablet,extended 25 mg PO QAM 11/06/23 11/06/23 release 24 hr omeprazole 40 mg capsule,delayed 40 mg PO BID 11/06/23 11/06/23 release potassium chloride 20 mEq 20 meq PO DAILY 11/06/23 11/06/23 tablet,extended release semaglutide 2 mg/dose (8 mg/3 mL) 2 mg subcut WK 11/06/23 11/06/23 subcutaneous pen injector (Ozempic) Previous Rx's Medication Instructions Recorded acetaminophen 325 mg tablet 650 mg (2 x 325 mg) PO Q4H PRN 06/14/20 pain #50 tabs Results & Data (ED) Vital Signs Vital Signs - 24 hr 11/06/23 11:43 11/06/23 11:59 11/06/23 12:00 Temperature 36.5 C Temperature Source Temporal Artery Scan Pulse Rate 78 69 Pulse Rate [Apical] 72 Respiratory Rate 16 22 Respiratory Effort / Characteristics Non-Labored Spontaneous Non-Labored Spontaneous Respiratory Depth Normal Normal Blood Pressure 147/95 H Blood Pressure [Right Arm] 176/102 H Blood Pressure Mean 112 Blood Pressure Mean [Right Arm] 126 Blood Pressure Position Sitting Pulse Oximetry 98 96 Oxygen Delivery Method Room Air Room Air Sepsis Recent Fever Within 48 Hours No Sepsis New/Unexplained Change in Mental Status N/A Sepsis Action Taken by Nursing No Action Required 11/06/23 12:30 11/06/23 13:12 Temperature Temperature Source Pulse Rate 70 Pulse Rate [Apical] Respiratory Rate 16 Respiratory Effort / Characteristics Respiratory Depth Blood Pressure 199/98 H Blood Pressure [Right Arm] Blood Pressure Mean 131 Blood Pressure Mean [Right Arm] Blood Pressure Position Pulse Oximetry 96 Oxygen Delivery Method Room Air Sepsis Recent Fever Within 48 Hours Sepsis New/Unexplained Change in Mental Status Sepsis Action Taken by Group Home Medications Current Medication List: was personally reviewed by me Laboratory Data Attestation: I reviewed the patient's lab results. 11/06/23 12:06 11/06/23 12:06 Lab Results 11/06/23 Range/Units 12:06 WBC 5.90 (4.8-10.8) K/ul RBC 4.59 L (4.70-6.10) M/uL Hgb 14.1 (14.0-18.0) g/dl Hct 41.3 L (42.0-52.0) % MCV 90.0 (80.0-100.0) fL MCH 30.7 (25.0-34.0) pg MCHC 34.1 (32.0-36.0) g/dL RDW Std Deviation 41.1 (36.4-46.3) fL RDW Coeff of Kyleigh 12.4 (11.5-14.5) % Plt Count 181 (130-400) K/uL MPV 9.6 (9.4-12.4) fL Immature Gran % (Auto) 0.3 % Neut % (Auto) 52.5 % Lymph % (Auto) 31.9 % Harmon % (Auto) 12.0 % Eos % (Auto) 2.5 % Baso % (Auto) 0.8 % Neut # (Auto) 3.09 (1.40-6.50) K/uL Lymph # (Auto) 1.88 (1.20-3.40) K/uL Harmon # (Auto) 0.71 H (0.11-0.59) K/uL Eos # (Auto) 0.15 (0.00-0.50) K/uL Baso # (Auto) 0.05 (0.00-0.20) K/uL Immature Gran # (Auto) 0.02 (0.01-0.20) K/uL Sodium 137 (136-145) mmol/L Potassium 3.9 (3.5-5.1) mmol/L Chloride 102 (98-107) mmol/L Carbon Dioxide 29 (21-32) mmol/L Anion Gap 6 (3-11) BUN 7 (6-23) mg/dl Creatinine 0.62 (0.6-1.4) mg/dl Est Cr Clr Drug Dosing 115.7 ml/min Est GFR ( Amer) 110.9 ml/min Est GFR (Non-Af Amer) 95.7 ml/min BUN/Creatinine Ratio 11.3 (10-20) Glucose 102 H (70-99(Fasting)) mg/dl Calcium 9.4 (8.6-10.3) mg/dl Magnesium 2.0 (1.7-2.4) mg/dl Total Bilirubin 1.3 H (0.2-1.0) mg/dl AST 23 (13-39) U/L ALT 25 (7-52) U/L Alkaline Phosphatase 58 (34-104) U/L Troponin I High Sens 4.7 (0-20) pg/ml Total Protein 6.5 (6.0-8.3) gm/dl Albumin 4.3 (3.4-5.0) gm/dl Globulin 2.2 L (2.5-4.0) gm/dl Albumin/Globulin Ratio 2.0 (0.9-2) TSH 0.767 (0.300-4.500) uIu/ml Administered Medications Amiodarone HCl (Amiodarone 200 Mg Tab) 200 mg PO TIDM [facility] Stop: 12/06/23 14:04 Last Admin: 11/06/23 15:14 Dose: 200 mg Documented By: ESTEFANÍA Discontinued Medications Hydralazine HCl (Hydralazine Hcl 20 Mg/Ml Vial) 5 mg IV NOW ONE Stop: 11/06/23 15:18 Last Admin: 11/06/23 15:27 Dose: 5 mg Documented By: ESTEFANÍA Sodium Chloride (Nss) 500 mls @ 999 mls/hr IV .Q31M NISHA Stop: 11/06/23 12:45 Last Infusion: 11/06/23 13:56 Dose: Infused Documented By: Admin: 11/06/23 12:34 Dose: 999 mls/hr Documented By: MARINO Imaging Data Radiologist's Impression: Chest X-Ray 11/06/23 12:01 XR chest 1V portable HISTORY: 78 years-old Male weakness COMPARISON: 11/11/2022 TECHNIQUE: AP view of the chest FINDINGS: There is no pneumothorax or pleural effusion. Dual lead left subclavian pacer is in place. Mild cardiomegaly is unchanged. There is no evidence for pulmonary edema. No consolidation is present. The appearance of the chest is unchanged. IMPRESSION: No acute process. ACT 112: Negative or not required by law. The above report was generated using voice recognition software. It may contain grammatical, syntax or spelling errors. Electronically signed by: Teja Paul M.D. 11/06/2023 1:06 PM Discharge Plan Visit Data Chief Complaint: Syncope Stated Complaint: SYNCOPE, LIGHTHEADED, BLURRED VISION ED Provider: Christopher Lund Discharge Problem: Syncope, V-tach Patient Disposition: Admitted As Inpatient Condition: Fair Discharge Instructions Interventions: ED Discharge Assessment Last Done: 11/06/23 15:06 Discharge Problem: Syncope Qualifiers: Syncope type: unspecified Qualified Code(s): R55 - Syncope and collapse
[2023-11-06 12:30] LABS: Basophils # (auto) 0.05 K/uL (0.00-0.20); Basophils % (auto) 0.8 %; Eosinophils # (auto) 0.15 K/uL (0.00-0.50); Eosinophils % (auto) 2.5 %; Hematocrit (blood only) 41.3 % (42.0-52.0); Hemoglobin 14.1 g/dl (14.0-18.0); Immature Granulocytes # (auto) 0.02 K/uL (0.01-0.20); Immature Granulocytes % (auto) 0.3 %; Lymphocytes # (auto) 1.88 K/uL (1.20-3.40); Lymphocytes % (auto) 31.9 %; Mean Corpuscular Hemoglobin 30.7 pg (25.0-34.0); Mean Corpuscular Hgb Conc 34.1 g/dL (32.0-36.0); Mean Platelet Volume 9.6 fL (9.4-12.4); Monocytes # (auto) 0.71 K/uL (0.11-0.59); Neutrophils # (auto) 3.09 K/uL (1.40-6.50); Neutrophils % (auto) 52.5 %; Platelet Count 181 K/uL (130-400); RDW Coefficient of Variation 12.4 % (11.5-14.5); RDW Standard Deviation 41.1 fL (36.4-46.3); Red Blood Count 4.59 M/uL (4.70-6.10)
[2023-11-06] MEDS: SODIUM CHLORIDE 0.9% 500 ML IV SCH (12:34)
[2023-11-06 12:48] LABS: Albumin Level 4.3 gm/dl (3.4-5.0); BUN Creatinine Ratio 11.3 (10-20); Bilirubin,Total 1.3 mg/dl (0.2-1.0); Calcium 9.4 mg/dl (8.6-10.3); Creatinine Clr Calc Pharmacy 115.7 ml/min; Est GFR (African American) 110.9 ml/min; Est GFR (Non-African American) 95.7 ml/min; Globulin 2.2 gm/dl (2.5-4.0); Potassium 3.9 mmol/L (3.5-5.1); Total Protein 6.5 gm/dl (6.0-8.3)
[2023-11-06 12:56] LABS: Troponin I High Sensitivity 4.7 pg/ml (0-20)
[2023-11-06 13:03] LABS: Thyroid Stimulating Hormone 0.767 uIu/ml (0.300-4.500)
--- NOTE | 2023-11-06 13:07 | XRay Report ---
XR chest 1V portable HISTORY: 78 years-old Male weakness COMPARISON: 11/11/2022 TECHNIQUE: AP view of the chest FINDINGS: There is no pneumothorax or pleural effusion. Dual lead left subclavian pacer is in place. Mild cardi omegaly is unchanged. There is no evidence for pulmonary edema. No consolidation is present. The appe arance of the chest is unchanged. IMPRESSION: No acute process. ACT 112: Negative or not required by law. The above report was generated using voice recognition software. It may contain grammatical, syntax o r spelling errors. Electronically signed by: Teja Paul M.D. 11/06/2023 1:06 PM
--- NOTE | 2023-11-06 13:29 | History & Physical Report ---
Date of Service November 06, 2023 Assessment & Plan (1) Syncope: (2) History of pacemaker: Plan Mr. 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 Episode of Syncopal Event H/O Tachy-Elvin Syndrome s/p Pacemaker Placement [05/2020] Admitting CXR w/ no acute acute findings, dual L subclavian pacer in place - follows w/ [facility]. Given recent syncopal event, precautionary head CT ordered - revealed no acute intracranial abnormalities. Pt not c/o any SOB or chest pain on presentations, mentions he may have noticed some palpitations - trop negative. Pacemaker report ordered by ED provider --> Showing runs of VTACH, longest episode lasting ~14 seconds. Per ED provider's conversation w/ [employer], also appears pt has been having some supraventricular rhythms. Cardiology consulted given the above, saw pt in the ED; started pt on amiodarone 200mg TID, stopped his SAFETY RISK LEAD verapamil. Pt may warrant further EP testing per Dr. Brown - recommends pt stay on telemetry for at least the next 48 hours. No significant finding on admitting CBC - no leukocytosis or anemia. No acute electrolyte abnormalities. Pt's potassium 3.9 at time of admission; he takes a potassium supplement SAFETY RISK LEAD - will continue for now. Repeat CBC, BMP in AM; also will get mag and phos - closely monitor electrolyte levels. UA negative. DM Type II - BSG 102 on arrival to ED, started on HH/CC diet. Hold SAFETY RISK LEAD diabetic medications; SSI regimen initiated. BSG checks ACHS, Hgb A1c to be completed in AM - follow. Hypertension (HTN) Pt's BP elevated at 199/98 at time of admission; monitor BP closely. Can continue SAFETY RISK LEAD BP medications; PRN IV hydralazine 5mg Q6H for SBP>160. Will continue Lasix for now, pt does not appear fluid overloaded on exam in ED - reassess in AM. Dyslipidemia & H/O Nonobstructive Coronary Atherosclerosis: Can continue SAFETY RISK LEAD aspirin and atorvastatin. GERD, H/O Diverticulosis: Continue SAFETY RISK LEAD omeprazole and famotidine, pt has seen [facility] in the past. Hypothyroidism: TSH WNL at 0.767 at time of admission; can continue SAFETY RISK LEAD levothyroxine. REANNA on CPAP: CPAP ordered, settings per chart review on [facility]. BPH w/ LUTS H/O Overactive Bladder Follows w/ [facility] as outpatient. Can continue SAFETY RISK LEAD medications for these conditions. DVT Prophylaxis: SCDs/TEDs - For now Code Status: FULL CODE PCP: Tip Oliver DO Disposition: Admit to PCU/Telemetry Patient seen in collaboration with Dr. Vaughn. Please see addendum. I spent a total of 65 minutes coordinating, documenting, and providing care for this patient excluding time spent in the performance of separately billed services. This included personally reviewing all current laboratories and imaging studies, medical reconciliation, outpatient chart review and discussion with specialists. This chart was completed in part utilizing Speech Voice Recognition Software. Grammatical errors, random word insertions, pronoun errors, and incomplete sentences are an occasional consequence of this system due to software limitations, ambient noise, and hardware issues. Any formal questions or concerns about the content, text, or information contained within the body of this dictation should be directly addressed to the provider for clarification. History of Present Illness Chief Complaint: Syncope Primary Care Provider: Tip Oliver DO Mr. 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 History obtained from patient and associated chart review. Patient reports that he was getting around to take his dog to the groomer this morning when all of a sudden he became very lightheaded and subsequently passed out briefly. He did not hit his head during this episode; he states his arm was resting on the washer in front of him and that caught him from falling down - avoiding any trauma. He did not have any chest pain or SOB with this episode. He was not diaphoretic either. States he felt the lightheadedness coming on and his vision had become rather blurry. He did notice some palpitations with this episode. Patient states that he had similar episodes of lightheadedness/dizziness yesterday, maybe 3-4x, but never passed out. Those episodes resolved rather quickly, as so did the one this morning. He denies any recent illnesses, fevers, cough or congestion. No vomiting or bowel habit changes. Patient senses that it may be arrhythmias causing these events. He was feeling better during our discussion; his BP has remained elevated since arrival to the ED (was 176/102 when I received sign- out). Patient notes that he took his BP after the episode this morning and it was ~167/99. He also took his blood sugar, which was 108. Allergies Allergy/AdvReac Type Severity Reaction Status Date / Time iodine Allergy Intermediate FULL BODY Verified 11/06/23 13:28 ITCHING povidone-iodine Allergy Intermediate Rash Verified 11/06/23 13:28 [From Betadine] shellfish derived Allergy Intermediate FULL BODY Verified 11/06/23 13:28 ITCHING Home Medications Medication Instructions Recorded Confirmed Type aspirin 81 mg tablet,delayed 81 mg PO HS 08/13/19 11/06/23 History release atorvastatin 40 mg tablet 40 mg PO QAM 08/13/19 11/06/23 History fluticasone propionate 50 2 spray intranasal QA 08/13/19 11/06/23 History mcg/actuation nasal spray,suspension metformin 1,000 mg tablet 1,000 mg PO BID 08/13/19 11/06/23 History omega-3 360 [id number]-[id number]-fish oil 1 cap PO DAILY 08/13/19 11/06/23 History 1,200 mg capsule,delayed release (Fish Oil) valacyclovir 500 mg tablet 500 mg PO PM 05/14/20 11/06/23 History acetaminophen 325 mg tablet 650 mg (2 x 325 mg) PO Q4H PRN 06/14/20 11/06/23 Rx pain #50 tabs cetirizine 10 mg tablet 10 mg PO QAM 06/24/20 11/06/23 History losartan 50 mg tablet 50 mg PO BID 02/05/21 11/06/23 History tadalafil 5 mg tablet 5 mg PO DAILY 02/05/21 11/06/23 History levothyroxine 88 mcg tablet 88 mcg PO QAM 12/03/21 11/06/23 History carvedilol 25 mg tablet 25 mg PO DAILY 11/11/22 11/06/23 History cholecalciferol (vitamin D3) 50 50 mcg PO DAILY 11/11/22 11/06/23 History mcg (2,000 unit) capsule (Vitamin D3) famotidine 20 mg tablet 20 mg PO DAILY 11/11/22 11/06/23 History furosemide 40 mg tablet (Lasix) 40 mg PO DAILY 11/11/22 11/06/23 History ipratropium bromide 21 mcg (0.03 2 spray intranasal TID 11/11/22 11/06/23 History %) nasal spray tamsulosin 0.4 mg capsule (Flomax) 0.4 mg PO DAILY 11/11/22 11/06/23 History verapamil 180 mg 24 hr 180 mg PO QAM 11/11/22 11/06/23 History capsule,extended release wheat dextrin 3 gram/4 gram oral 1 packet PO DAILY 11/11/22 11/06/23 History powder (Benefiber Sugar Free (dextrin)) mirabegron 25 mg tablet,extended 25 mg PO QAM 11/06/23 11/06/23 History release 24 hr omeprazole 40 mg capsule,delayed 40 mg PO BID 11/06/23 11/06/23 History release potassium chloride 20 mEq 20 meq PO DAILY 11/06/23 11/06/23 History tablet,extended release semaglutide 2 mg/dose (8 mg/3 mL) 2 mg subcut WK 11/06/23 11/06/23 History subcutaneous pen injector (Ozempic) Past Med/Surg History Problem List V-tach (Acute) Syncope (Acute) History of pacemaker Near syncope Syncope (Acute) HTN (hypertension) (Acute) Blood glucose elevated (Acute) SVT (supraventricular tachycardia) (Acute) Wide-complex tachycardia (Acute) Acute hypotension (Acute) Syncope and collapse (Acute) Laceration of right hand (Acute) On amiodarone therapy Ventricular tachycardia (Acute) Diabetes mellitus, type II Ascending aorta dilatation pt unaware Nonobstructive atherosclerosis of coronary artery follows with Dr. Candelario REANNA on CPAP Hypertension HLD (hyperlipidemia) GERD (gastroesophageal reflux disease) Medical History Hx of cold sores Kidney stones hx of Hypothyroidism Neuropathy right leg Pacemaker [employer] > placed for SVT > placed in May 2020 > last checked over phone approx September 2021 Surgical History Hx of left cataract extraction History of cystoscopy History of repair of rotator cuff bilat Hx of surgical procedure right biceps tendon repair History of arthroscopy right knee ACL History of esophagogastroduodenoscopy (EGD) History of colonoscopy History of appendectomy Hx of nasal septoplasty History of partial colectomy pre-cancerous area removed History of tonsillectomy S/p nephrectomy right > post trampoline accident age 19 H/O cardiac catheterization 2019 > no stents Family History Mother Colorectal cancer Other Lung cancer Social History Smoking Status: Former smoker Tobacco Type: Cigarettes Second Hand Exposure: No; Do You Dip or Chew Tobacco: No; Tobacco Cessation Education Requested by Patient: No Hx Alcohol Use: Yes Alcohol type: beer Alcohol Intake Frequency: 2-4 x/Month Hx Substance Use: No Preferred Language: Danish Communication Ability: Effective Senior Mortgage Underwriter Required: No Beliefs That Will Affect Care: None Current Living Situation: Family Current Living Situation Comment: son lives with pt Other Information That Helps Us Care for You: No Feels Safe at Home: Yes Safety Concerns: Feels Safe At This Time Assistive Devices: Cane Review of Systems Review of Systems: At least ten systems reviewed and negative, except as noted in the HPI. Physical Exam Physical Exam: General: NAD, sitting up in bed, pleasant, conversing appropriately. A+Ox3, euthymic affect. HEENT: Normocephalic, atraumatic. Conjunctivae normal, anicteric sclerae, oropharynx normal. Respiratory: Normal respiratory effort, lungs clear to auscultation, no wheeze, rales, rhonchi. No accessory muscle use. Cardiovascular: Regular rate, rhythm, no murmur, normal peripheral pulses, no BLE edema. Vessels: No JVD. Abdomen/GI: Normal bowel sounds, soft, nontender, no hepatosplenomegaly. Extremities/Musculoskeletal: No cyanosis or clubbing, extremities motor strength intact, moves all extremities. Neurologic: PERRL, EOMI, accommodation nl, no face palsy, no dysarthria, CN's II-XI not formally tested but appear grossly intact bilaterally. Skin: No rashes, normal color, warm/dry. Results & Data Results & Data Vital Signs (Past 12 Hours) Vital Signs Temp Pulse Pulse Resp BP BP Pulse Ox 11/06/23 12:30 96 11/06/23 11:59 72 22 176/102 H 96 11/06/23 11:43 36.5 C 78 16 147/95 H 98 O2 Del Method 11/06/23 12:30 Room Air 11/06/23 11:59 Room Air 11/06/23 11:43 Room Air Laboratory Results Short CBC 11/06/23 Range/Units 12:06 WBC 5.90 (4.8-10.8) K/ul Hgb 14.1 (14.0-18.0) g/dl Hct 41.3 L (42.0-52.0) % Plt Count 181 (130-400) K/uL BMP 11/06/23 12:06 Sodium 137 Potassium 3.9 Chloride 102 Carbon Dioxide 29 BUN 7 Creatinine 0.62 Glucose 102 H Calcium 9.4 Liver Function 11/06/23 Range/Units 12:06 Total Bilirubin 1.3 H (0.2-1.0) mg/dl AST 23 (13-39) U/L ALT 25 (7-52) U/L Alkaline Phosphatase 58 (34-104) U/L Albumin 4.3 (3.4-5.0) gm/dl Diagnostic Findings Chest X-Ray 11/06/23 12:01 XR chest 1V portable HISTORY: 78 years-old Male weakness COMPARISON: 11/11/2022 TECHNIQUE: AP view of the chest FINDINGS: There is no pneumothorax or pleural effusion. Dual lead left subclavian pacer is in place. Mild cardiomegaly is unchanged. There is no evidence for pulmonary edema. No consolidation is present. The appearance of the chest is unchanged. IMPRESSION: No acute process. ACT 112: Negative or not required by law. The above report was generated using voice recognition software. It may contain grammatical, syntax or spelling errors. Electronically signed by: Teja Paul M.D. 11/06/2023 1:[address] 11/06/23 13:29 CT head/brain wo con CLINICAL HISTORY: 78 years-old Male with Syncopal episode. Acute syncope TECHNIQUE: Multiple axial CT images of the head were obtained without contrast. A dose lowering technique was utilized adhering to the principles of ALARA. CT DOSE: 625.8 mGy.cm COMPARISON: 11/11/2022 FINDINGS: No acute intracranial hemorrhage, midline shift, intracranial mass, hydrocephalus, territorial ischemia or abnormal extra-axial collection. Involutional changes with chronic microvascular ischemic disease. The calvarium is intact. Prior bilateral lens repair. The paranasal sinuses, mastoid air cells, and middle ear cavities are clear. IMPRESSION: No acute intracranial abnormality. ACT 112: Negative or not required by law. The above report was generated using voice recognition software. It may contain grammatical, syntax or spelling errors. Electronically signed by: Teja Paul M.D. 11/06/2023 3:13 PM Medications Administered Discontinued Medications Sodium Chloride (Nss) 500 mls @ 999 mls/hr IV .Q31M NISHA Stop: 11/06/23 12:45 Last Admin: 11/06/23 12:34 Dose: 999 mls/hr Documented By: MARINO ECG Additional Comments: EKG on admission showing an atrial paced rhythm with bifascicular block. Code Status & VTE Plan Code Status FULL CODE VTE Prophylaxis Plan VTE Prophylaxis will be ordered: Yes Supervising Physician Co-Signing Physician Notes Attending Addendum: Case reviewed with the advanced practitioner. I have personally performed a history and physical examination on the patient. I have reviewed the advanced practitioner's documentation on the date of service referenced in note, and I agree with, and take responsibility for the plan of care. please refer to her notes for full details patient seen and examined, records reviewed by myself as well on exam, patient seen resting in bed, comfortable no chest pain, dyspnea, palpitations, dizziness no other symptoms VS noted and reviewed oriented x 3 , not in distress, speaks in sentences with no effort nor accessory muscle use normal rate, regular rhythm, no murmurs clear breath sounds bilaterally non distended, soft, nontender no bipedal edema, erythema, warmth no neuro deficits all labs, imaging noted and reviewed ASSESSMENT AND PLAN> SYNCOPAL EPISODES LIKELY SECONDARY TO V TACH HISTORY OF TACHY ELVIN SYNDROME, S/P PACEMAKER PM interrogation revealing episodes of V tach Cardiology consulted transitioned from Verapamil to Amiodarone EP consulted also monitor in Tele other diagnoses and plan of care as per advanced practitioner's notes Tim Vaughn MD (1) Syncope Syncope type: unspecified Qualified Code(s): R55 - Syncope and collapse
--- NOTE | 2023-11-06 13:39 | Cardiology Consultation ---
Date of Consultation November 06, 2023 Assessment & Plan (1) Wide-complex tachycardia: (2) Near syncope: (3) Hypertension: (4) REANNA on CPAP: (5) Nonobstructive atherosclerosis of coronary artery: Plan Symptomatic wide-complex tachycardia in the past felt to be atrial tachycardia mediated with prior EP testing 1 year ago Now with recurrence of episodes longest 14 seconds in duration with associated symptoms of near syncope Preserved LV systolic function by prior echocardiogram and no obstructive coronary disease Plan: Initiate amiodarone 200 mg 3 times daily. Stop verapamil. Discussed with the EP may warrant further EP testing. Would maintain telemetry at least additional 48 hours follow and treat blood pressure as appropriate EKG in a.m. daily History of Present Illness Reason for Consultation: Syncope WCT on PPM report Requesting Physician: Sourav Miller. History of Present Illness Medically complex 78 year old male. Presents to [facility] ED following a syncopal episode today at home. PPM report revealed evidence of a wide complex tachycardia. EKG showing a-paced with bifascicular block. Lab work unremarkable- CBC and BMP stable. HS Trop negative x1. TSH normal. Outpatient cardiac medications include: Aspirin 81 mg daily Atorvastatin 40 mg daily Carvedilol 25 mg twice daily Furosemide 40 mg daily Losartan 50 mg daily Verapamil 180 mg daily Problem List: 1.Long-standing labile, [id number] hypertension, hypertensive heart disease 2.Sensed atrial and ventricular ectopy 3.Symptomatic supraventricular tachycardia, treated with amiodarone initiated 05/2020, discontinued 02/2022 due to atypical side effect of generalized weakness 4.Bifascicular bundle branch block 5.Recurrent, unexplained syncopal episodes 6.Status post dual chamber Medtronic permanent pacemaker implantation, 06/13/2020 7.ASCVD 1.Abnormal exercise nuclear stress testing in 2011, indicative of inferior wall ischemia with diagnostic cardiac catheterization at [facility] on 12/31/[address] Brown revealing no significant obstructive coronary artery disease. 2.Repeat cardiac catheterization 01/[address] Brown showed luminal irregularities in the proximal LAD otherwise no obstructive CAD noted. 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 Primary outpatient hat braider: Dr. Mcnair also previously evaluated by Dr. Mireles Patient presents today noting having experienced symptoms of intermittent acute dizziness over the past several weeks. Today with near complete syncopal event at very low level activity. Episode very brief but transient loss of consciousness. No loss of bowel or bladder activity no fall. Was leaning against a washer Episode correlated with episode of wide-complex tachycardia on pacemaker interrogation Currently without acute complaint notes no exertional chest pain or shortness of breath mild pedal edema only. No acute weight loss or gain. No changes in medications with patient medication compliant. No fevers or chills. No bleeding difficulties. Allergies Allergy/AdvReac Type Severity Reaction Status Date / Time iodine Allergy Intermediate FULL BODY Verified 11/06/23 13:28 ITCHING povidone-iodine Allergy Intermediate Rash Verified 11/06/23 13:28 [From Betadine] shellfish derived Allergy Intermediate FULL BODY Verified 11/06/23 13:28 ITCHING Home Medications Medication Instructions Recorded Confirmed Type aspirin 81 mg tablet,delayed 81 mg PO HS 08/13/19 11/06/23 History release atorvastatin 40 mg tablet 40 mg PO QAM 08/13/19 11/06/23 History fluticasone propionate 50 2 spray intranasal QAM 08/13/19 11/06/23 History mcg/actuation nasal spray,suspension metformin 1,000 mg tablet 1,000 mg PO BID 08/13/19 11/06/23 History omega-3 360 ul-qaa-vuz-fish oil 1 cap PO DAILY 08/13/19 11/06/23 History 1,200 mg capsule,delayed release (Fish Oil) valacyclovir 500 mg tablet 500 mg PO PM 05/14/20 11/06/23 History acetaminophen 325 mg tablet 650 mg (2 x 325 mg) PO Q4H PRN 06/14/20 11/06/23 Rx pain #50 tabs cetirizine 10 mg tablet 10 mg PO QAM 06/24/20 11/06/23 History losartan 50 mg tablet 50 mg PO BID 02/05/21 11/06/23 History tadalafil 5 mg tablet 5 mg PO DAILY 02/05/21 11/06/23 History levothyroxine 88 mcg tablet 88 mcg PO QAM 12/03/21 11/06/23 History carvedilol 25 mg tablet 25 mg PO DAILY 11/11/22 11/06/23 History cholecalciferol (vitamin D3) 50 50 mcg PO DAILY 11/11/22 11/06/23 History mcg (2,000 unit) capsule (Vitamin D3) famotidine 20 mg tablet 20 mg PO DAILY 11/11/22 11/06/23 History furosemide 40 mg tablet (Lasix) 40 mg PO DAILY 11/11/22 11/06/23 History ipratropium bromide 21 mcg (0.03 2 spray intranasal TID 11/11/22 11/06/23 History %) nasal spray tamsulosin 0.4 mg capsule (Flomax) 0.4 mg PO DAILY 11/11/22 11/06/23 History verapamil 180 mg 24 hr 180 mg PO QAM 11/11/22 11/06/23 History capsule,extended release wheat dextrin 3 gram/4 gram oral 1 packet PO DAILY 11/11/22 11/06/23 History powder (Benefiber Sugar Free (dextrin)) mirabegron 25 mg tablet,extended 25 mg PO QAM 11/06/23 11/06/23 History release 24 hr omeprazole 40 mg capsule,delayed 40 mg PO BID 11/06/23 11/06/23 History release potassium chloride 20 mEq 20 meq PO DAILY 11/06/23 11/06/23 History tablet,extended release semaglutide 2 mg/dose (8 mg/3 mL) 2 mg subcut WK 11/06/23 11/06/23 History subcutaneous pen injector (Ozempic) Patient History Medical History Hx of cold sores Kidney stones hx of Hypothyroidism Neuropathy right leg Pacemaker Medtronic > placed for SVT > placed in May 2020 > last checked over phone approx September 2021 Surgical History Hx of left cataract extraction History of cystoscopy History of repair of rotator cuff bilat Hx of surgical procedure right biceps tendon repair History of arthroscopy right knee ACL History of esophagogastroduodenoscopy (EGD) History of colonoscopy History of appendectomy Hx of nasal septoplasty History of partial colectomy pre-cancerous area removed History of tonsillectomy S/p nephrectomy right > post trampoline accident age 19 H/O cardiac catheterization 2020 > no stents Family History Mother Colorectal cancer Other Lung cancer Social History Smoking Status: Former smoker Tobacco Type: Cigarettes Second Hand Exposure: No; Do You Dip or Chew Tobacco: No; Hx Alcohol Use: No Hx Substance Use: No Preferred Language: [place]an Communication Ability: Effective Daycare Manager Required: No Beliefs That Will Affect Care: None Current Living Situation: Family Feels Safe at Home: Yes Assistive Devices: Cane Review of Systems Review of Systems: All systems reviewed & are unremarkable except as noted in HPI & below Physical Exam Constitutional: well developed and well nourished; no acute distress Eyes: PERRL, conjunctivae normal, anicteric sclerae ENMT: external ear and nose normal, oropharynx normal Neck: trachea midline, no thyromegaly Cardiovascular: RRR, no murmur, no edema Vessels: no JVD Extremities: + edema (Trace) Chest (Breasts): Chest: + pacemaker Gastrointestinal (Abdomen): normal bowel sounds, soft, nontender, no hepatosplenomegaly Musculoskeletal: no cyanosis or clubbing, extremities motor strength 5/5 Results & Data Vital Signs (Past 12 Hours) Vital Signs Temp Pulse Pulse Resp BP BP Pulse Ox 11/06/23 12:30 96 11/06/23 11:59 72 22 176/102 H 96 11/06/23 11:43 36.5 C 78 16 147/95 H 98 O2 Del Method 11/06/23 12:30 Room Air 11/06/23 11:59 Room Air 11/06/23 11:43 Room Air Laboratory Results Cardiac Enzymes 11/06/23 Range/Units 12:06 AST 23 (13-39) U/L Troponin I High Sens 4.7 (0-20) pg/ml CBC 11/06/23 Range/Units 12:06 WBC 5.90 (4.8-10.8) K/ul RBC 4.59 L (4.70-6.10) M/uL Hgb 14.1 (14.0-18.0) g/dl Hct 41.3 L (42.0-52.0) % Plt Count 181 (130-400) K/uL Neut # (Auto) 3.09 (1.40-6.50) K/uL Lymph # (Auto) 1.88 (1.20-3.40) K/uL [place] # (Auto) 0.71 H (0.11-0.59) K/uL Eos # (Auto) 0.15 (0.00-0.50) K/uL Baso # (Auto) 0.05 (0.00-0.20) K/uL Comprehensive Metabolic Panel 11/06/23 Range/Units 12:06 Sodium 137 (136-145) mmol/L Potassium 3.9 (3.5-5.1) mmol/L Chloride 102 (98-107) mmol/L Carbon Dioxide 29 (21-32) mmol/L BUN 7 (6-23) mg/dl Creatinine 0.62 (0.6-1.4) mg/dl Glucose 102 H (70-99(Fasting)) mg/dl Calcium 9.4 (8.6-10.3) mg/dl AST 23 (13-39) U/L ALT 25 (7-52) U/L Alkaline Phosphatase 58 (34-104) U/L Total Protein 6.5 (6.0-8.3) gm/dl Albumin 4.3 (3.4-5.0) gm/dl Intake and Output 11/05/23 11/06/23 11/06/23 22:59 06:59 14:59 Other: Weight 95.5 kg Weight Measurement Method Chair Scale Patient Weight 11/07/23 06:59 Weight 95.5 kg Diagnostic Findings Echo 01/2023 Interpretation Summary The examination is adequate to evaluate the referral indication. The left ventricular cavity size is normal. The LV wall thickness is moderately increased (concentric). The septal motion is abnormal consistent with right ventricular pacemaker. The qualitative LV ejection fraction is 55-59% (normal). The left ventricular diastolic function is mildly abnormal (grade I). The left atrium is moderately enlarged (42-48 ml/m^2). Mild aortic valve sclerosis is present. The aortic root is mildly enlarged. (4.1 cm) Compared to prior study of January 24, 2021, there is no significant change. ECG Additional Comments: EKG 11/06/2023 Atrial paced rhythm with right bundle branch block, left anterior fascicular block, QT corrected 489
[2023-11-06] MEDS: AMIODARONE 200 MG TAB PO SCH (15:14)
--- NOTE | 2023-11-06 15:14 | CT Scan Report ---
CT head/brain wo con CLINICAL HISTORY: 78 years-old Male with Syncopal episode. Acute syncope TECHNIQUE: Multiple axial CT images of the head were obtained without contrast. A dose lowering tech nique was utilized adhering to the principles of ALARA. CT DOSE: 625.8 mGy.cm COMPARISON: 11/11/2022 FINDINGS: No acute intracranial hemorrhage, midline shift, intracranial mass, hydrocephalus, territorial ischem ia or abnormal extra-axial collection. Involutional changes with chronic microvascular ischemic disea se. The calvarium is intact. Prior bilateral lens repair. The paranasal sinuses, mastoid air cells, and m iddle ear cavities are clear. IMPRESSION: No acute intracranial abnormality. ACT 112: Negative or not required by law. The above report was generated using voice recognition software. It may contain grammatical, syntax o r spelling errors. Electronically signed by: Teja Paul M.D. 11/06/2023 3:13 PM
[2023-11-06] MEDS: hydrALAZINE HCL 20 MG/ML VIAL IV ONE (15:27)
[2023-11-06 15:28] LABS: Appearance Urine Clear (Clear); Bilirubin Urine Negative (Negative); Blood Urine Negative (Negative); Color Urine Yellow; Glucose Urine UA Negative (Negative); Ketones Urine Negative (Negative); Leukocyte Esterase Urine Negative (Negative); Nitrite Urine Negative (Negative); Protein Urine Negative (Negative); Specific Gravity Urine 1.005 (1.000-1.030); Urobilinogen Urine Negative (Negative)
[2023-11-06] MEDS ORDERED: ACETAMINOPHEN 325 MG TAB PO PRN (16:10)
[2023-11-06] MEDS ORDERED: GLUCAGON FOR INJ 1 MG VIAL SQ PRN (16:10)
[2023-11-06] MEDS ORDERED: DEXTROSE 50% 50 ML SYRINGE IV PRN (16:10)
[2023-11-06] MEDS ORDERED: CARBOHYDRATES FOR HYPOGLYCEMIA PO PRN (16:10)
[2023-11-06] MEDS ORDERED: GLUCOSE 40% GEL 15 GM TUBE PO PRN (16:10)
[2023-11-06] MEDS ORDERED: GLUCOSE 10 TAB/TUBE PO PRN (16:10)
[2023-11-06] MEDS: LOSARTAN POTASSIUM 50 MG TAB PO SCH (16:58)
[2023-11-06] MEDS: carvediloL 25 MG TAB PO SCH (16:58)
--- NOTE | 2023-11-06 17:00 | Electrocardiogram Report ---
Test Reason : Blood Pressure : / mmHG Vent. Rate : 075 BPM Atrial Rate : 075 BPM P-R Int : 258 ms QRS Dur : 162 ms QT Int : 438 ms P-R-T Axes : 002 -66 044 degrees QTc Int : 489 ms Atrial-paced rhythm with prolonged AV conduction Right bundle branch block Left anterior fascicular block Bifascicular block Minimal voltage criteria for LVH, may be normal variant Abnormal ECG When compared with ECG of 13-NOV-2022 20:23, (RBBB and left anterior fascicular block) is now Present Confirmed by Regan Rooney ([id number]) on 11/06/2023 5:00:19 PM Referred By: Confirmed By:Jerson Rooney
[2023-11-06] MEDS: INSULIN ASPART PER UNIT CHARGE SC SCH (17:51)
[2023-11-06] MEDS: ASPIRIN 81 MG ECTAB PO SCH (20:36)
[2023-11-06] MEDS: valACYclovir HCL 500 MG TABLET PO SCH (20:37)
[2023-11-06] MEDS: IPRATROPIUM BROMIDE NASAL SPRAY 0.06% 15ML NAE SCH (20:38)
[2023-11-06] MEDS: PANTOprazole 40 MG TAB PO SCH (20:38)
--- OUTSIDE RECORDS SUMMARY | 2023-11-06 23:23 | External Medical Summary | Summary of Care ---
Author Name Unknown Organization [facility] Address [address] [facility] [place] [address] Phone [phone] Care Team Providers Care Radar Air Traffic Controller Name Role Phone Tip Oliver Primary Care Provider Reason for Visit * Reason Comments Outpatient Testing Encounter Details Date Type Department Care Team (Late st Contact Info) Description 11/02/2023 11:50 AM EDT [facility] [address] [facility] [place] [id number] [facility] [address] [place] [address] BPH with obstruction/lower urinary tract symptoms Allergies Active Allergy Reactions Criticality Noted Date Comments Povidone Iodine 08/21/2021 Iodides Rash Medium 12/13/1998 Allergy to Betadine- Iodinated Contrast Media Itching 05/31/2018 Iodine Itching 04/06/2012 Amlodipine Besylate Edema Other High 08/12/2013 Severe edema of feet and lower legs Shellfish-Derived Products Rash High 2 documented as of this encounter (statuses as of 11/02/2023) Medications Medication Sig Dispensed Refills Start Date End Date Status ASPIRIN 81 MG PO TABS Take by mouth at bedtime. Active FREESTYLE LANCETS MISCIndications:DM type 2, goal A1c below 7 use for testing up to 2 times a day. dx 250.00. estimated use: lifetime. 3 Box 3 01/04/2013 Active FREESTYLE TEST STRPIndications:DM type 2, goal A1c below 7 use for testing up to 2 times a day. dx 250.00. estimated use: lifetime. 300 Strip 3 01/04/2013 Active [place]-3 Fatty Acids (FISH OIL) 1360 MG CAPS Take by mouth. Active Multiple Vitamins-Minerals (DAILY MULTIVITAMIN) CAPS Take by mouth. Active Insulin Pen Needle (BD PEN NEEDLE MARISA U/F) 32G X 4 MM Use once daily 100 Each 3 03/19/2018 Active Wheat Dextrin (BENEFIBER) powder Take by mouth daily. Active Acetaminophen 325 MG Oral Tablet (Tylenol) Take 2 Tablets by mouth every 6 hours as needed for Pain, Mild or Pain, Moderate. Active PreserVision AREDS 2 Oral Capsule Take 1 Capsule by mouth every evening. Active Vitamin D-3 25 MCG (1000 UT) Oral Capsule Take 1 Capsule by mouth in the morning. Active Slow Fe 142 (45 Fe) MG Oral Tablet Extended Release (Ferrous Sulfate ER) Take by mouth. Active Ozempic (2 MG/DOSE) 8 MG/3ML Subcutaneous Solution Pen-injector (Semaglutide (2 MG/DOSE)) Inject 0.75 mL under the skin once a week. 3 mL 5 09/18/2022 Active Additional Information Patient taking differently:2 mg Subcutaneous QWEEK,Indications: on fridays, Reported on 12/11/2022 Furosemide 40 MG Oral Tablet (Lasix)Indications:H TN, goal below 140/90 Take 1 Tablet by mouth in the morning. 90 Tablet 3 11/18/2022 Active Levothyroxine Sodium 88 MCG Oral Tablet (Levoxyl)Indications :Hypothyroidism, unspecified type Take 1 Tablet by mouth daily first thing in the morning. (at least 30 min prior to breakfast or other meds) 90 Tablet 3 12/11/2022 Active Triamcinolone Acetonide 0.1 % External Ointment (Aristocort)Indicati ons:Atopic dermatitis, unspecified type Apply topically to affected area 2 times a day. To affected area of the ear. 80 g 5 12/11/2022 Active Famotidine 20 MG Oral Tablet (Pepcid) TAKE 1 TABLET BY MOUTH EVERY MORNING 90 Tablet 3 12/17/2022 Active Verapamil HCl ER 180 MG Oral Tablet Extended Release (Isoptin SR)Indications:SVT (supraventricular tachycardia) (HCC),Tachy-tripp syndrome (HCC) Take 1 Tablet by mouth in the morning. 90 Tablet 3 01/19/2023 Active Losartan Potassium 50 MG Oral Tablet (Cozaar)Indications: Chest pain, unspecified type,COBIAN (dyspnea on exertion),HTN, goal below 140/90,Presence of cardiac pacemaker,SVT (supraventricular tachycardia) (HCC),REANNA (obstructive sleep apnea) Take 1 Tablet by mouth in the morning and 1 Tablet before bedtime. 180 Tablet 3 02/24/2023 Active metFORMIN HCl 1000 MG Oral Tablet (Glucophage)Indicati ons:Type 2 diabetes mellitus with hemoglobin A1c goal of less than 7.0% (HCC) Take 1 Tablet by mouth 2 times a day with morning and evening meals. 180 Tablet 3 03/29/2023 Active Fluticasone Propionate 50 MCG/ACT Nasal Suspension (Flonase)Indications :Allergic rhinitis INSTILL 2 SPRAYS IN EACH NOSTRIL EVERY DAY 48 mL 1 07/12/2023 Active Omeprazole 20 MG Oral Capsule Delayed Release (PriLOSEC)Indication s:Nonobstructive atherosclerosis of coronary artery,HTN, goal below 140/90,Tachy-tripp syndrome (HCC),SVT (supraventricular tachycardia) (HCC),Presence of cardiac pacemaker,REANNA (obstructive sleep apnea) Take 1 Capsule by mouth in the morning and 1 Capsule in the evening. 180 Capsule 3 07/25/2023 Active Tadalafil 5 MG Oral Tablet (Cialis) TAKE 1 TABLET BY MOUTH EVERY DAY NEEDED FOR ERECTILE DYSFUNCTION 30 Tablet 3 08/03/2023 Active oxyBUTYnin Chloride ER 10 MG Oral Tablet Extended Release 24 Hour Take 1 Tablet by mouth in the morning. 30 Tablet 6 08/19/2023 Active valACYclovir HCl 500 MG Oral Tablet (Valtrex)Indications :Herpes simplex virus (HSV) infection TAKE 1 TABLET BY MOUTH EVERY DAY 90 Tablet 1 08/24/2023 Active Potassium Chloride ER 20 MEQ Oral Tablet Extended ReleaseIndications:B alance problems Take 1 Tablet by mouth in the morning. 90 Tablet 3 08/21/2023 Active Atorvastatin Calcium 40 MG Oral Tablet (Lipitor) Take 1 Tablet by mouth at bedtime. In the morning. 90 Tablet 3 08/22/2023 Active Carvedilol 25 MG Oral Tablet (Coreg)Indications:S VT (supraventricular tachycardia) (HCC) Take 1 Tablet by mouth in the morning and 1 Tablet in the evening. 180 Tablet 3 10/08/2023 Active Potassium Chloride Wendy ER 20 MEQ Oral Tablet Extended Release Take 1 Tablet by mouth. In the morning. 08/31/2023 Active Tamsulosin HCl 0.4 MG Oral Capsule (Flomax) TAKE 1 CAPSULE BY MOUTH EVERY MORNING 90 Capsule 3 10/20/2023 Active Ipratropium [place] 0.03 % Nasal Solution (Atrovent) Administer 2 Sprays into nostril in the morning and 2 Sprays at noon and 2 Sprays before bedtime. 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 Hx of dysplastic nevus 05/15/2023 Overview: Mildly atypical nevus (L medial thigh) COPD, group A, by GOLD 2017 classification 12/08 Overview: Per COPD GOLD Classification SVT (supraventricular tachycardia) 05/29/2022 COBIAN (dyspnea on exertion) 10/25/2021 Persistent cough for 3 weeks or longer 2 Hoarseness of voice 07/05/2021 Iron deficiency anemia 02/15/2021 Obesity, Class I, BMI 30.0-34.9 (see actual BMI) 11/22/2020 Balance problems 10/18/2019 Hx of nonmelanoma skin cancer 05/25/2019 Overview: basal cell carcinoma (L mid helix 05/15) HTN, goal below 130/80 05/22/2019 Ascending aorta dilatation 12/13/2018 Nonobstructive atherosclerosis of coronary arter y 12/13/2018 Aortic root enlargement 01/20/2018 REANNA on CPAP 02/08/2014 Overview: [employer]. Fax is [phone] Phone no is [phone] Labile hypertension 12/26/2011 Type 2 diabetes mellitus wit h hemoglobin A1c goal of less than 7.0% 08/20/2010 Overview: ICD-10 update of inactive term Dyslipidemia, goal LDL below 70 08/20/2010 S/p nephrectomy 06/18/2006 Overview: Blood pressure goal is less than 130/85. IMPOTENCE, 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 ADVANCE DIRECTIVE INFORMATION 11/06/2004 Overview: Yes, Copy scanned at patient level in the electronic medical record.(Go to Action, Patient File to view) Patient aware they must notify their healthcare provider of changes. Esophageal reflux 09/06/1999 Allergic rhinitis 09/06/1999 documented as of this encounter (statuses as of 11/02/2023) Resolved Problems Problem Noted Date Diagnosed Date Resolved Date COPD, severity to be determined 10/25/2021 12/11/2022 Overview: Per COPD GOLD Classification Visit for wound check 06/30/20182018 Fatigue 11/06/2014 11/21/2016 Malaise and fatigue 10/31/2013 11/22/19 17 Other nonspecific abnormal c ardiovascular system function study 12/19/2011 11/21/2016 Contrast media allergy 12/19/201105/31 Edema 12/12/2011 11/21/2016 HTN, goal below 130/80 08/20/201012/03 History of colon polyps 10/20/2008 0207/2018 Overview: adenomatous/repeat colonoscopy in 5 yrs Dyslipidemia, goal to be determined 06/17/2005 08/20/2010 PROPHYLACTIC MEASURE NEC 06/17/200504/2007 Lyme disease 02/28/2004 11/26/2007 Edema 01/05/2004 11/26/2007 SLOW TRANSIT CONSTIPATION/OBSTIPATION 10/04/2003 08/20/2010 Mitral valve prolapse 05/09/20032007 COCCYDYNIA 08/02/2002 10/04/2003 BACKACHE NOS 08/02/2002 10/04/2003 Contusion of elbow 03/30/2002 4 Need for prophylactic vaccin ation and inoculation against viral disease 03/30/20022003 Overview: ICD-10 update of inactive term VIRAL GASTROENETERITIS 02/08/200210/03 Major depressive disorder 10/30/2000 Overview: ICD-10 update of inactive term OCCUP CIRCUMSTANCES NEC 09/17/2000 06/0 12/2003 Chest pain 09/06/1999 10/04/2003 Abdominal pain, generalized 09/06/1999 10/04/2003 ESOPHAGEAL SPASM 09/06/1999 11/26/2007 BENIGN HYPERTENSION 11/26/19 08 BENIGN NEOPLASM LG BOWEL 08/2008 Overview: Colonoscopy 10/01/05--tubular adenoma and hyperplastic polyps, repeat 3 years in 10/03 COMMON MIGRAINE WITHOUT MENT ION OF INTRACTABLE MIGRAINE 11/21/2016 Esophagitis 10/04/2003 Overview: ICD-10 update of inactive term IMPOTENCE, ORGANIC ORIGN 04/2007 HTN, goal below 140/90 08/20 Overview: Blood pressure goal is less than 130/85. documented as of this encounter (statuses as of 11/02/2023) Immunizations Name Administration Dates Next Due COVID-19 mRNA, LNP-s, No Pre serve, 2-Dose Series ([employer]) 02/11/2021,06/15/2020,05/19/2020 COVID-19, MRNA-LNP, 23-24, P F, 30 MCG/0.3 mL, 12 YRS AND ABOVE, IM (PFIZER-Comirnaty) 02/12/2023 Covid-19, Mrna, Lnp-s, Pf, B ivalent, 30 Mcg, IM, 12 yrs and above (Pfizer) 01/10/2022 H1N1 2009 Influenza, IM 04/30/2009 Pneumococcal Conjugate Vacc, 13 Valent (Prevnar) 08/14/2015 Pneumococcal Polysaccharide PPV23 (Pneumovax) 10/27/2013,09/25/1997 RSV Vac., Bivalent, Perfusio n F, Pf,0.5 Ml (Abrysvo) 04/18/2023 Season Influenza, Cell Cultu re, 18+ Yrs, With Preserv (Flucelvax) 03/14/2013 Season Influenza, Quad, PF, Adjuvanted, 65+ Yrs, IM (FLUAD) 02/20/2020 Seasonal Influenza, PF, 6 M & above, IM , (FluLaval or Fluzone) 01/31/2018 Seasonal Influenza, Quadriva lent Hd (Fluzone Hd) 02/12/2023,01/10/2022,02/14/2021 Seasonal Influenza, Quadriva lent, No Preserve, IM 01/12/2017,02/06/2016,01/19/2015 Seasonal Influenza, Split, I IV3, With Preserve, Inj 01/31/2014,01/16/2012,01/16/2011,01/23,02/08/2009,03/01/2008,01/28/2006 Seasonal Influenza, Trivalen t, Adjuvanted, 65+ yrs 01/04/2019 TDAP, Age 7 and older, IM (Adacel) 12/01/2007 Varicella Zoster Vaccine (Adult) 03/02/2012 Zoster Vaccine Recombinant (Shingrix) 02/22/2019 ,12/02/2018 documented as of this encounter Social History Tobacco Use Types Packs/Day Years Used Date Smoking Tobacco: Former Cigarettes 0.5 48 0 04/28/1961 - 04/28/2009 Smokeless Tobacco: Former Snuff Quit: 05/24/2009 Comments:Passive smoke expos ure from son who lives with him Alcohol Use Standard Drinks/Week Comments Yes 0 (1 standard drink = 0.6 oz pure alcohol) very occasional-2 beers every couple of months PHQ-2 Answer Date Recorded PHQ Adult Total Score 1 12/11/2022 Hunger Vital Sign Answer Date Recorded Within the past 12 months, y ou worried that your food would run out before you got the money to buy more. Never true 11/08/19 23 Within the past 12 months, t he food you bought just didn't last and you didn't have money to get more. Never true 11/07/2022 Childcare Answer Date Recorded Do you feel overwhelmed with taking care of a child, family member or friend? No 11/07/2022 Does your family need help f inding childcare? (Household - for ages 0-17 years) Not on file 11/07/2022 Clothing Answer Date Recorded Have you been unable to get clothing when it was really needed? No 11/07/2022 Is your family able to get c lothes or diapers when needed? (Household - for ages 0-17 years) Not on file 11/07/2022 Personal Safety Answer Date Recorded Do you feel unsafe or have concerns for your saf ety? No 11/07/2022 Do you have concerns for you r family's safety? (Household - for ages 0-17 years) Not on file 11/07/2022 Utilities Answer Date Recorded Do you have trouble paying y our heating, water, or electric bill? No 11/07/2022 Is your family able to pay t he heat, water, or electric bill? (Household - for ages 0-17 years) Not on file 11/07/2022 Does your family have access to good internet? (Household - for ages 0-17 years) Not on file 11/07/2022 Employment Status Answer Date Recorded Are you unemployed or without regular income? No 11/07/2022 Does the household have a [facility] source of income? (Household - for ages 0-17 years) Not on file 11/07/2022 Social Connections Answer Date Recorded How often do you feel lonely or isolated from th ose around you? Never 11/07/2022 Financial Resource Strain Answer Date R ecorded Do you have any trouble payi ng for your medications, or do you think you might in the future? No 11/07/2022 Does your family have troubl e paying for medicine? (Household - for ages 0-17 years) Not on file 11/07/2022 Transportation Needs Answer Date Record ed READ ONLY Do you have troubl e getting a ride to medical visits or work? Never True 11/07/2022 Does your family have a hard time getting a ride to doctors visits? (Household - for ages 0-17 years) Not on file 11/07/2022 Has lack of transportation k ept you from medical appointments, meetings, work, or from getting things needed for daily living? Check all that apply. (Adult - for ages 18 years and over) Not on file 11/07/2022 Do you (or your family) have trouble finding or paying for a ride (transportation)? (Household - for ages 0-17 years) Not on file 11/07/2022 Housing Stability Answer Date Recorded Do you currently live in a s helter or have no steady place to sleep at night? No 11/07/2022 READ ONLY Do you think you a re at risk of becoming homeless? No 11/07/2022 Does your family worry about paying for your home or becoming homeless? (Household - for ages 0-17 years) Not on file 0 11/07/2022 Are you homeless or worried that you might be in the future? (Adult - for ages 18 years and over) Not on file Are you (or your family) rosette eless or worried that you might be in the future? (Household - for ages 0-17 years) Not on file Food Insecurity Answer Date Recorded Do you need food for this week? No 11/07/2022 Are you able to get enough f ood for your family? (Household - for ages 0-17 years) Not on file 11/07/2022 Does your family need food t his week? (Household - for ages 0-17 years) Not on file 11/07/2022 Do you always have enough fo od for your family? (Household - for ages 0-17 years) Not on file 11/07/2022 Sex and Gender Information Value Date Recorded Sex Assigned at Male 10/26/2019 11:33 AM EDT Gender Identity Male 10/26/2019 11:33 AM EDT Sexual Orientation Straight 10/26/2019 11 :33 AM EDT Job Start Date Occupation Industry Not on file Not on file Not on file documented as of this encounter Plan of Treatment Upcoming Encounters Date Type Department Care Team (Late st Contact Info) Description 12/17/2023 1:00 PM EDT Office Visit Family Practice [facility] [address] [place] [address] Tip Oliver, [address] [place] [address] 08/23/2024 11:30 AM EDT Office Visit Urology, [facility] [address] [place] [address] Anthony Foster MD [address] [place] [address] 09/13/2024 1:00 PM EDT Office Visit Allergy/Immunology [facility] [place] [address] [facility] [place] [address] Keiry Schmitt PA-C [address] [facility] [place] [address] Pending Results Name Type Priority Associated Diagnoses Date /Time PSA Lab Routine BPH with obstruction/lower urinary tract symptoms 11/02/2023 12:01 PM EDT Scheduled Procedures Name Priority Associated Diagnoses Date/Ti me ROBOTIC ARTHROPLASTY TOTAL HIP Primary osteoarthritis of right hip COLONOSCOPY FLEXIBLE PROXIMA L DIAGNOSTIC Recall History of colonic polyps Health Maintenance Due Date Last Done Comments COVID-19 Vaccine ( season) 2023 02/12/2023, 01/10/2022, 02/11/2021, Additional history exists Diabetic Foot Exam 11/22/2023 11/21/2022, 0 11/25/2021, 05/18/2020, Additional history exists Depression Screening 12/12/2023 12/11/2022, 02/01/20 18 HbA1c 12/14/2023 06/15/2023, 11/25, 08/21/2022, Additional history exists Influenza Vaccine (FLU shot) (#1) 2023 02/12/2023, 01/10/2022, 02/14/2021, Additional history exists Colonoscopy 03/17/2024 03/17/2023, 11/26, 12/15/2022, Additional history exists O2 ASSESSMENT COMPLETED IN PAST YEAR FOR COPD 03/17/2024 03/17/2023 Albumin/Creatinine Ratio 06/15/2024 024, 05/29/2022, 05/28/2021, Additional history exists B-12 06/15/2024 06/15/2023, 11/25, 10/16/2021, Additional history exists TSH 06/15/2024 06/15/2023, 12/0 11/2021, 02/20/2022, Additional history exists Diabetic Eye Exam 07/30/2024 07/31/2023, , 07/18/2022, Additional history exists GFR 10/14/2024 10/15/2023, 05/28, 11/18/2022, Additional history exists DTaP,Tdap,and Td Vaccines (3 - Td or Tdap) 02/01/2028 01/31/2018 (Declined), 12/01/2007, 09/25/1997 Pneumococcal Vaccine: 65+ Years Completed 08/14/2015, 10/27/2013, 09/25/1997 Zoster Vaccines Completed 02/22/2019, 11/2018, 03/02/2012 RETIRED - COLONOSCOPY-ANNUAL AGES 18-100 Discontinued 03/17/2023, 12/15/2022, 12/15/2022, Additional history exists Alpha-1 Antitrypsin Completed 06/15/2023 Lung Cancer Screening Completed 10/02/2023 , 09/30/2022, 09/20/2021 HPV (Gardasil) Vaccine Aged Out No lo nger eligible based on patient's age to complete this topic Hepatitis B Vaccine Aged Out No longe r eligible based on patient's age to complete this topic MENINGOCOCCAL (MENACTRA/MENVEO) Aged Out No longer eligible based on patient's age to complete this topic documented as of this encounter Medical Devices Not on filedocumented as of this encounter Visit Diagnoses Diagnosis BPH with obstruction/lower urinary tract symptoms Hypertrophy of prostate with urinary obstruction and other lower urinary tract symptoms (LUTS) documented in this encounter Care Teams Radar Air Traffic Controller Relationship Specialty Start Date End Date Tip Oliver DO [address] [facility] [place] [address] PCP - General Family Medicine 07/19/20 documented as of this encounter
--- OUTSIDE RECORDS SUMMARY | 2023-11-06 23:24 | External Medical Summary | Summary of Care ---
Author Name Unknown Organization [facility] Address [address] [facility] [place] [address] Phone [phone] Care Team Providers Care Advertising Space Clerk Name Role Phone Tip Oliver Primary Care Provider Encounter Details Date Type Department Care Team (Late st Contact Info) Description 10/19/2023 Orders Only Outcomes Research Department [address] [place] [facility] [place] [address] Kimberly Gongora CHRA MyCode Research Other*[id number] Allergies Active Allergy Reactions Criticality Noted Date Comments Povidone Iodine 08/21/2021 Iodides Rash Medium 12/13/1998 Allergy to Betadine- Iodinated Contrast Media Itching 05/31/2018 Iodine Itching 04/06/2012 Amlodipine Besylate Edema Other High 08/12/2013 Severe edema of feet and lower legs Shellfish-Derived Products Rash High 2 documented as of this encounter (statuses as of 10/19/2023) Medications Medication Sig Dispensed Refills Start Date [...] use: lifetime. 300 Strip 3 01/04/2013 Active [place]-3 Fatty Acids (FISH OIL) 1360 MG CAPS [...] Subcutaneous QWEEK,Indications: on fridays, Reported on 12/11/2022 Ipratropium [place] 0.03 % Nasal Solution (Atrovent) Administer 2 Sprays into nostril in the morning and 2 Sprays at noon and 2 Sprays before bedtime. 30 mL 6 10/17/2022 Active Tamsulosin HCl 0.4 MG Oral Capsule (Flomax) TAKE 1 CAPSULE BY MOUTH EVERY MORNING 90 Capsule 3 11/04/2022 Active Additional Information Patient taking differently: Indications: at lunchtime, Reported on 12/11/2022 Furosemide 40 MG Oral [...] by mouth. In the morning. 08/31/2023 Active documented as of this encounter (statuses as of 10/19/2023) Active Problems Problem Noted Date Diagnosed Date [...] enlargement 01/20/2018 REANNA on CPAP 02/08/2014 Overview: [employer]. Fax is [phone] Phone no is [phone] Labile hypertension 12/26/2011 Type 2 diabetes mellitus [...] as of this encounter (statuses as of 10/19/2023) Resolved Problems Problem Noted Date Diagnosed Date Resolved Date COPD, severity to be determined 10/25/2021 12/11/2022 Overview: Per COPD GOLD Classification Visit for wound check 06/30/20182018 Fatigue 11/06/2014 11/21/2016 Malaise and fatigue 10/31/2013 11/22/19 17 Other nonspecific abnormal c ardiovascular system function study 12/19/2011 11/21/2016 Contrast media allergy 12/19/201105/31 Edema 12/12/2011 11/21/2016 HTN, goal below 130/80 08/20/201012/03 History of colon polyps 10/20/200807/2018 Overview: adenomatous/repeat colonoscopy in 5 yrs Dyslipidemia, [...] of inactive term OCCUP CIRCUMSTANCES NEC 09/17/2000 06/12/2003 Chest pain 09/06/1999 10/04/2003 Abdominal pain, generalized [...] as of this encounter (statuses as of 10/19/2023) Immunizations Name Administration Dates Next Due COVID-19 mRNA, LNP-s, No Pre serve, 2-Dose Series ([employer]) 02/11/2021,06/15/2020,05/19/2020 COVID-19, MRNA-LNP, 23-24, P F, 30 MCG/0.3 mL, 12 YRS AND ABOVE, IM ([employer]-Comirnat) 02/12/2023 Covid-19, Mrna, Lnp-s, Pf, B ivalent, [...] No 11/07/2022 Does the household have a re lar source of income? (Household - for ages [...] 1:00 PM EDT Office Visit Family Practice [facility] [address] [place] [address] [address] Tip Oliver DO [address] [place] [address] 08/23/2024 11:30 AM EDT Office Visit Urology, [facility] [address] [address] [address] Anthony Foster MD [address] [facility] [place] [address] [place] [address] 09/13/2024 1:00 PM EDT Office Visit Allergy/Immunology [facility] [place] [address] [facility] [place] [address] Keiry Schmitt PA-C [address] [facility] [place] [address] Scheduled Orders Name Type Priority Associated Diagnoses Orde r Schedule MYCODE SUBSEQUENT ADULT Lab Routine MyCode Research Other*[id number] Every 6 Months for 2 Occurrences starting 10/19/2023 until 11/07/2024 Scheduled Procedures Name Priority Associated Diagnoses Date/Ti [...] 12/14/2023 06/15/2023, 11/25, 08/21/2022, Additional history exists Colonoscopy 03/17/2024 03/17/2023, 0804/2022, 12/15/2022, Additional history exists O2 ASSESSMENT COMPLETED [...] 09/25/1997 Zoster Vaccines Completed 02/22/2019, 11/2018, 03/02/2012 Influenza Vaccine (FLU shot) Completed 02/12/2023, 01/10/2022, 02/14/2021, Additional history exists RETIRED - COLONOSCOPY-ANNUAL AGES 18-100 Discontinued 03/17/2023, 12/15/2022, 12/15/2022, Additional history exists Alpha-1 Antitrypsin Completed 06/15/2023 Lung Cancer Screening Completed 10/02/2023 , 09/30/2022, 09/20/2021 GARDASIL-HPV IMMUNIZATION SERIES Aged Out No longer eligible based on patient's age to complete this topic Hepatitis B Aged Out No longer eligi ble based on patient's age to complete this topic MENINGOCOCCAL (MENACTRA/MENVEO) Aged Out No longer eligible based on patient's age to complete this topic documented as of this encounter Medical Devices Not on filedocumented as of this encounter Visit Diagnoses Diagnosis MyCode Research Other*[id number] documented in this encounter Care Teams Advertising Space Clerk Relationship Specialty Start Date End Date Tip Oliver DO [address] [address] [address] PCP - General Family Medicine 07/19/20 documented as of this encounter
--- OUTSIDE RECORDS SUMMARY | 2023-11-06 23:24 | External Medical Summary ---
Author Name Unknown Address Unknown Organization K01:[facility] [address] [place] [id number] Laboratory Report Ordering Provider Test Date Status ELICEO TORRES JR 11/02/2023 12:01:49 Final Observation Date Value Abnormality Reference (Units ) Status PSA 11/02/2023 12:01:49 0.62 <4.10 (ng/ mL) Final Performing Location [facility] [address] [place] [id number]
--- OUTSIDE RECORDS SUMMARY | 2023-11-06 23:24 | External Medical Summary | Summary of Care ---
Author Name Unknown Organization [facility] Address [address] [facility] [place] [address] Phone [phone] Care Team Providers Care Router Operator Pin Name Role Phone Tip Oliver DO Primary Care Provider Reason for Visit * Reason Comments Return Visit Pt states they are e xperiencing more bruising, no known reason as to why its occurring. 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 300 Strip 3 01/04/2013 Active [place]-3 Fatty Acids (FISH OIL) 1360 MG CAPS [...] QWEEK,Indications: on fridays, Reported on 12/11/2022 Ipratropium [place] 0.03 % Nasal Solution (Atrovent) Administer 2 [...] as of this encounter (statuses as of 10/15/2023) Active Problems Problem Noted Date Diagnosed Date [...] enlargement 01/20/2018 REANNA on CPAP 02/08/2014 Overview: [email or web address]. Fax is [phone] Phone no is [phone] Labile hypertension 12/26/2011 Type 2 diabetes mellitus [...] as of this encounter (statuses as of 10/15/2023) Resolved Problems Problem Noted Date Diagnosed Date [...] update of inactive term OCCUP CIRCUMSTANCES NEC 09/17/200012/2003 Chest pain 09/06/1999 10/04/2003 Abdominal pain, generalized [...] as of this encounter (statuses as of 10/15/2023) Immunizations Name Administration Dates Next Due COVID-19 mRNA, LNP-s, No Pre serve, 2-Dose Series ([employer]ion) 02/11/2021,06/15/2020,05/19/2020 COVID-19, MRNA-LNP, 23-24, P F, 30 [...] 04/28/2009 Smokeless Tobacco: Former Snuff Quit: 05/24/2009 Tobacco Cessation:Counseling Given: Not Answered Comments:Passive smoke exposure from son who lives with him Alcohol [...] 11/07/2022 Does the household have a re gular source of income? (Household - for ages [...] on file documented as of this encounter Last Filed Vital Signs Vital Sign Reading Time Taken Comments Blood Pressure 138/82 10/15/2023 11:14 AM EDT Pulse 78 10/15/2023 11:14 AM EDT Temperature 37.1 C (98.7 F) 10/15/2023 11:14 AM E DT Respiratory Rate - - Oxygen Saturation 98% 10/15/2023 11:14 AM EDT Inhaled Oxygen Concentration - - Weight 96.4 kg (212 lb 9.6 oz) 10/15/2023 11:14 AM EDT Height - - Body Mass Index 30.5 09/01/2023 2:40 PM EDT documented in this encounter Progress Notes * Tip Oliver, - 10/15/2023 11:20 AM EDT Images from the original note were not included. Assessment and Plan Type 2 diabetes mellitus with hemoglobin A1c goal of less than 7.0% ([facility]LY [facility]) Labs today - BASIC METABOLIC PANEL; Future COPD, group A, by GOLD 2017 classification (HCC) Stable breathing Continue to monitor COBIAN (dyspnea on exertion) Stable, improved since last visit Aortic root enlargement (HCC) stable Tachy-tripp syndrome (HCC) Stable rate and rhythm today Dyslipidemia, goal LDL below 70 Labs today Hypothyroidism, unspecified type stable History of Present Illness F Kirt Joseph is a 78 year old male that presents for Return Visit (Pt states they are experiencing more bruising, no known reason as to why its occurring. ) Presents in f/u today Has been doing very well overall And is compliant with his medications Notes his diet at times has sugar and deserts Activity level has been down with his hip pain But he hopes to have that fixed in November Physical Exam Vitals: 10/15/23 1114 Temp: 37.1 C (98.7 F) Pulse: 78 SpO2: 98% BP: 138/82 Physical Exam Constitutional: Appearance: Normal appearance. HENT: Head: Normocephalic and atraumatic. Eyes: Extraocular Movements: Extraocular movements intact. Pupils: Pupils are equal, round, and reactive to light. Cardiovascular: Rate and Rhythm: Normal rate. Pulmonary: Effort: Pulmonary effort is normal. Breath sounds: Normal breath sounds. Neurological: General: No focal deficit present. Mental Status: He is alert and oriented to person, place, and time. Psychiatric: Mood and Affect: Mood normal. Behavior: Behavior normal. Wrap-Up Follow-up: Return in about 6 months (around 04/15/2024). | Check-out note: Every 6 every other withThiede Time: Total time today was 42 minutes excluding any time spent in the performance of separately billed services. documented in this encounter Nursing Notes * Silverio Xavier MED ASSIST - 10/15/2023 11:14 AM EDT The patient has been properly identified by confirmation of name and date of . Chief Complaint Patient presents with Return Visit Pt states they are experiencing more bruising, no known reason as to why its occurring. documented in this encounter Plan of Treatment Upcoming Encounters Date Type Department Care Team (Late st Contact Info) Description 10/15/2023 12:00 PM EDT Laboratory Laboratory, [facility] [address] [place] [phone] Joycelyn Leyva [facility] [address] [facility] [place] [address] Type 2 diabetes mellitus with hemoglobin A1c goal of less than 7.0% (FORM[facility]LY [facility]) 12/17/2023 1:00 PM EDT Office Visit Family Practice [facility] [address] [place] [address] Tip Oliver DO [address] [facility] [place] [address] 08/23/2024 11:30 AM EDT Office Visit Urology, [facility] [address] [place] [address] Anthony Foster MD [address] [facility] [address] [place] [address] 09/13/2024 1:00 PM EDT Office Visit Allergy/Immunology [facility] [place] [address] [place] [address] Keiry Schmitt PA-C [address] [place] [address] Pending Results Name Type Priority Associated Diagnoses Date /Time BASIC METABOLIC PANEL Lab Routine Type 2 diabetes mellitus with hemoglobin A1c goal of less than 7.0% (HCC) 10/15/2023 11:40 AM EDT Scheduled Orders Name Type Priority Associated Diagnoses Orde r Schedule BASIC METABOLIC PANEL Lab Routine Type 2 diabetes mellitus with hemoglobin A1c goal of less than 7.0% (HCC) Expected: 10/15/2023 (Approximate), Expires: 10/14/2024 Scheduled Procedures Name Priority Associated Diagnoses Date/Ti [...] 08/21/2022, Additional history exists Colonoscopy 03/17/2024 03/17/2023, 11/26, 12/15/2022, Additional history exists O2 ASSESSMENT COMPLETED IN PAST YEAR FOR COPD 03/17/2024 03/17/2023 Albumin/Creatinine Ratio 06/15/2024 024, 05/29/2022, 05/28/2021, Additional history exists B-12 06/15/2024 06/15/2023, 11/25, 10/16/2021, Additional history exists GFR 06/15/2024 06/15/2023, 0708/2022, 08/21/2022, Additional history exists TSH 06/15/2024 06/15/2023, 12/0 11/2021, 02/20/2022, Additional history exists Diabetic Eye Exam 07/30/2024 07/31/2023, , 07/18/2022, Additional history exists DTaP,Tdap,and Td Vaccines (3 [...] as of this encounter Visit Diagnoses Diagnosis Type 2 diabetes mellitus with hemoglobin A1c goal of less than 7.0% (HCC)- Primary COPD, group A, by GOLD 2017 classification (HCC) COBIAN (dyspnea on exertion) Other dyspnea and respiratory abnormality Aortic root enlargement (HCC) Other specified disorders of arteries and arterioles Tachy-tripp syndrome (HCC) Sinoatrial node dysfunction Dyslipidemia, goal LDL below 70 Other and unspecified hyperlipidemia Hypothyroidism, unspecified type Type 2 diabetes mellitus with hemoglobin A1c goal of less than 7.0% (HCC) documented in this encounter Care Teams Router Operator Pin Relationship Specialty Start Date End Date Tip Oliver DO [address] [place] [address] PCP - General Family Medicine 07/19/20 documented as of this encounter"
--- OUTSIDE RECORDS SUMMARY | 2023-11-06 23:24 | External Medical Summary | Summary of Care ---
Author Name Unknown Organization [facility] Address [address] [facility] [place] [address] Phone [phone] Care Team Providers Care Rocket Scientist Name Role Phone Tip Oliver Primary Care Provider Reason for Visit * Reason Comments eRx-Medication Refill Encounter Details Date Type Department Care Team (Late st Contact Info) Description 10/20/2023 Refill Urology [place] [address] [place] [address] [place] [address] Monroe Zhang Jr., MD [address] [place] [address] [place] [address] Allergies Active Allergy Reactions Criticality Noted Date Comments Povidone Iodine 08/21/2021 Iodides Rash Medium 12/13/1998 Allergy to Betadine- Iodinated Contrast Media Itching 05/31/2018 Iodine Itching 04/06/2012 Amlodipine Besylate Edema Other High 08/12/2013 Severe edema of feet and lower legs Shellfish-Derived Products Rash High 2 documented as of this encounter (statuses as of 10/20/2023) Medications Medication Sig Dispensed Refills Start Date End Date Status ASPIRIN 81 MG PO TABS Take by mouth at bedtime. Active FREESTYLE LANCETS MISCIndications:DM type 2, goal A1c below 7 use for testing up to 2 times a day. dx 250.00. estimated use: lifetime. 3 Box 3 3 Active FREESTYLE TEST STRPIndications:DM type 2, goal A1c below 7 use for testing up to 2 times a day. dx 250.00. estimated use: lifetime. 300 Strip 3 3 Active [place]-3 Fatty Acids (FISH OIL) 1360 MG CAPS Take by mouth. Active Multiple Vitamins-Minerals (DAILY MULTIVITAMIN) CAPS Take by mouth. Ac tive Insulin Pen Needle (BD PEN NEEDLE MARISA U/F) 32G X 4 MM Use once daily 100 Each 3 8 Active Wheat Dextrin (BENEFIBER) powder Take by [...] skin once a week. 3 mL 5 3 Active Additional Information Patient taking differently:2 mg Subcutaneous QWEEK,Indications: on fridays, Reported on 12/11/2022 Ipratropium [place] 0.03 % Nasal Solution (Atrovent) Administer 2 Sprays into nostril in the morning and 2 Sprays at noon and 2 Sprays before bedtime. 30 mL 6 3 Active Furosemide 40 MG Oral Tablet (Lasix)Indications: HTN, goal below 140/90 Take 1 Tablet by mouth in the morning. 90 Tablet 3 3 Active Levothyroxine Sodium 88 MCG Oral Tablet (Levoxyl)Indication s:Hypothyroidism, unspecified type Take 1 Tablet by mouth daily first thing in the morning. (at least 30 min prior to breakfast or other meds) 90 Tablet 3 3 Active Triamcinolone Acetonide 0.1 % External Ointment (Aristocort)Indicat ions:Atopic dermatitis, unspecified type Apply topically to affected area 2 times a day. To affected area of the ear. 80 g 5 08/17/202 3 Active Famotidine 20 MG Oral Tablet (Pepcid) TAKE 1 TABLET BY MOUTH EVERY MORNING 90 Tablet 3 3 Active Verapamil HCl ER 180 MG Oral Tablet Extended Release (Isoptin SR)Indications:SVT (supraventricular tachycardia) (HCC),Tachy-tripp syndrome (HCC) Take 1 Tablet by mouth in the morning. 90 Tablet 3 3 Active Losartan Potassium 50 MG Oral Tablet (Cozaar)Indications :Chest pain, unspecified type,COBIAN (dyspnea on exertion),HTN, goal below 140/90,Presence of cardiac pacemaker,SVT (supraventricular tachycardia) (HCC),REANNA (obstructive sleep apnea) Take 1 Tablet by mouth in the morning and 1 Tablet before bedtime. 180 Tablet 3 3 Active metFORMIN HCl 1000 MG Oral Tablet (Glucophage)Indicat ions:Type 2 diabetes mellitus with hemoglobin A1c goal of less than 7.0% (HCC) Take 1 Tablet by mouth 2 times a day with morning and evening meals. 180 Tablet 3 3 Active Fluticasone Propionate 50 MCG/ACT Nasal Suspension (Flonase)Indication s:Allergic rhinitis INSTILL 2 SPRAYS IN EACH NOSTRIL EVERY DAY 48 mL 1 4 Active Omeprazole 20 MG Oral Capsule Delayed Release (PriLOSEC)Indicatio ns:Nonobstructive atherosclerosis of coronary artery,HTN, goal below 140/90,Tachy-tripp syndrome (HCC),SVT (supraventricular tachycardia) (HCC),Presence of cardiac pacemaker,REANNA (obstructive sleep apnea) Take 1 Capsule by mouth in the morning and 1 Capsule in the evening. 180 Capsule 3 4 Active Tadalafil 5 MG Oral Tablet (Cialis) TAKE 1 TABLET BY MOUTH EVERY DAY NEEDED FOR ERECTILE DYSFUNCTION 30 Tablet 3 4 Active oxyBUTYnin Chloride ER 10 MG Oral Tablet Extended Release 24 Hour Take 1 Tablet by mouth in the morning. 30 Tablet 6 4 Active valACYclovir HCl 500 MG Oral Tablet (Valtrex)Indication s:Herpes simplex virus (HSV) infection TAKE 1 TABLET BY MOUTH EVERY DAY 90 Tablet 1 4 Active Potassium Chloride ER 20 MEQ Oral Tablet Extended ReleaseIndications: Balance problems Take 1 Tablet by mouth in the morning. 90 Tablet 3 4 Active Atorvastatin Calcium 40 MG Oral Tablet (Lipitor) Take 1 Tablet by mouth at bedtime. In the morning. 90 Tablet 3 4 Active Carvedilol 25 MG Oral Tablet (Coreg)Indications: SVT (supraventricular tachycardia) (HCC) Take 1 Tablet by mouth in the morning and 1 Tablet in the evening. 180 Tablet 3 4 Active Potassium Chloride Wendy ER 20 MEQ Oral Tablet Extended Release Take 1 Tablet by mouth. In the morning. 4 Active Tamsulosin HCl 0.4 MG Oral Capsule (Flomax) TAKE 1 CAPSULE BY MOUTH EVERY MORNING 90 Capsule 3 4 Active Tamsulosin HCl 0.4 MG Oral Capsule (Flomax) TAKE 1 CAPSULE BY MOUTH EVERY MORNING 90 Capsule 3 3 024 Discontinued documented as of this encounter (statuses as of 10/20/2023) Active Problems Problem Noted Date Diagnosed Date [...] enlargement 01/20/2018 REANNA on CPAP 02/08/2014 Overview: [employer]. Fax is [phone] Phone no is [phone] Labile hypertension 12/26/2011 Type 2 diabetes mellitus [...] as of this encounter (statuses as of 10/20/2023) Resolved Problems Problem Noted Date Diagnosed Date [...] of inactive term OCCUP CIRCUMSTANCES NEC 09/17/2000 060 12/2003 Chest pain 09/06/1999 10/04/2003 Abdominal pain, [...] as of this encounter (statuses as of 10/20/2023) Immunizations Name Administration Dates Next Due COVID-19 mRNA, LNP-s, No Pre serve, 2-Dose Series (DigitalMR) 02/11/2021,06/15/2020,05/19/2020 COVID-19, MRNA-LNP, 23-24, P F, 30 MCG/0.3 mL, 12 YRS AND ABOVE, IM ([employer]-Comirnat) 02/12/2023 Covid-19, Mrna, Lnp-s, Pf, B ivalent, [...] No 11/07/2022 Does the household have a [facility] source of income? (Household - for ages [...] on file documented as of this encounter Miscellaneous Notes * Telephone Encounter - Monroe Zhang Jr., MD - 10/20/2023 9:59 AM EDT Signed Prescriptions: Disp Refills Tamsulosin HCl 0.4 MG Oral Capsule (Flomax)90 Cap*3 Sig: TAKE 1 CAPSULE BY MOUTH EVERY MORNING Authorizing Provider: MONROE ZHANG JR * Telephone Encounter - Meghan Bullard LPN - 10/20/2023 8:04 AM EDTPending Prescriptions: Disp Refills Tamsulosin HCl 0.4 MG Oral Capsule (Flomax)90 Cap*3 Sig: TAKE 1 CAPSULE BY MOUTH EVERY MORNING * Telephone Encounter - Meghan Bullard LPN - 10/20/2023 8:04 AM EDT Automatic refill request from pharmacy for Tamsulosin. 08/19/2023 Visit date not found Review of patient's allergies indicates: Allergen Reactions Norvasc [Amlodipine Besylate] Edema Other Severe edema of feet and lower legs Shellfish-Derived Products Rash Iodides Rash Allergy to Betadine- Betadine [Povidone Iodine] Iodinated Contrast Media Itching Iodine Itching documented in this encounter Plan of Treatment Upcoming Encounters Date Type Department Care Team (Late st Contact Info) Description 12/17/2023 1:00 PM EDT Office Visit Family Practice [facility] [address] [place] [address] Tip Oliver, [address] [place] [address] 08/23/2024 11:30 AM EDT Office Visit Urology, [facility] [address] [place] [address] Anthony Foster MD [address] [place] [address] [place] [address] 09/13/2024 1:00 PM EDT Office Visit Allergy/Immunology [place] [address] [facility] [place] [address] Keiry Schmitt PA-C [address] [facility] [place] [address] Scheduled Procedures Name Priority Associated Diagnoses Date/Ti [...] 08/14/2015, 10/27/2013, 09/25/1997 Zoster Vaccines Completed 02/22/2019, 08/11/2018, 03/02/2012 Influenza Vaccine (FLU shot) Completed 02/12/2023, [...] Not on filedocumented as of this encounter Care Teams Rocket Scientist Relationship Specialty Start Date End Date Tip Oliver DO [address] [place] [address] PCP - General Family Medicine 07/19/20 documented as of this encounter
--- OUTSIDE RECORDS SUMMARY | 2023-11-06 23:24 | External Medical Summary | Summary of Care ---
Author Name Unknown Organization [facility] Address [address] [facility] [place] [address] Phone [phone] Care Team Providers Care Gas Meter Repair Supervisor Name Role Phone Tip Oliver DO Primary Care Provider Encounter Details Date Type Department Care Team (Late st Contact Info) Description 10/23/2023 Telephone Orthopaedics [facility] [address] [place] [address] Bennie Law DO [address] [place] [address] Allergies Active Allergy Reactions Criticality Noted Date Comments Povidone Iodine 08/21/2021 Iodides Rash Medium 12/13/1998 Allergy to Betadine- Iodinated Contrast Media Itching 05/31/2018 Iodine Itching 04/06/2012 Amlodipine Besylate Edema Other High 08/12/2013 Severe edema of feet and lower legs Shellfish-Derived Products Rash High 2 documented as of this encounter (statuses as of 10/23/2023) Medications Medication Sig Dispensed Refills Start Date [...] use: lifetime. 300 Strip 3 01/04/2013 Active [place]-3 Fatty Acids (FISH OIL) 1360 MG CAPS [...] QWEEK,Indications: on fridays, Reported on 12/11/2022 Ipratropium [place] 0.03 % Nasal Solution (Atrovent) Administer 2 Sprays into nostril in the morning and 2 Sprays at noon and 2 Sprays before bedtime. 30 mL 6 10/17/2022 Active Furosemide 40 MG Oral Tablet (Lasix)Indications:H [place], [...] EVERY MORNING 90 Capsule 3 10/20/2023 Active documented as of this encounter (statuses as of 10/23/2023) Active Problems Problem Noted Date Diagnosed Date [...] enlargement 01/20/2018 REANNA on CPAP 02/08/2014 Overview: [employer]. Fax is [phone] Phone no is [phone] Labile hypertension 12/26/2011 Type 2 diabetes mellitus [...] as of this encounter (statuses as of 10/23/2023) Resolved Problems Problem Noted Date Diagnosed Date [...] as of this encounter (statuses as of 10/23/2023) Immunizations Name Administration Dates Next Due COVID-19 mRNA, LNP-s, No Pre serve, 2-Dose Series (KnowRe) 02/11/2021,06/15/2020,05/19/2020 COVID-19, MRNA-LNP, 23-24, P F, 30 MCG/0.3 mL, 12 YRS AND ABOVE, IM ([employer]-Comirnat) 02/12/2023 Covid-19, Mrna, Lnp-s, Pf, B ivalent, 30 Mcg, IM, 12 yrs and above (KnowRe) 01/10/2022 H1N1 2009 Influenza, IM 04/30/2009 Pneumococcal [...] encounter Miscellaneous Notes * Telephone Encounter - Brooklyn Treviño OSA - 10/23/2023 10:44 AM EDT Patient called into the office requesting surgery date. I called patient to advise that Surgeon chooses surgery dates. Patient was advised that I would be reaching out within the next week. I advisedto patient I will reach out as soon as I get a date. documented in this encounter Plan of Treatment Upcoming Encounters Date Type Department Care Team (Late st Contact Info) Description 12/17/2023 1:00 PM EDT Office Visit [address] [place] [address] Tip Oliver, [address] [place] [address] 08/23/2024 11:30 AM EDT Office Visit Urology, [facility] [address] [place] [address] Anthony Foster MD [address] [place] [address] 09/13/2024 1:00 PM EDT Office Visit Allergy/Immunology [facility] [address] [place] [address] Keiry Schmitt PA-C [address] [place] [address] Scheduled Procedures Name Priority Associated Diagnoses Date/Ti [...] 10/16/2021, Additional history exists TSH 06/15/2024 06/15/2023, 11/2021, 02/20/2022, Additional history exists Diabetic Eye [...] filedocumented as of this encounter Care Teams Gas Meter Repair Supervisor Relationship Specialty Start Date End Date Tip Oliver DO [address] [place] [address] PCP - General Family Medicine 07/19/20 documented as of this encounter
--- OUTSIDE RECORDS SUMMARY | 2023-11-06 23:24 | External Medical Summary | Summary of Care ---
Author Name Unknown Organization [facility] Address [address] [facility] [place] [address] Phone [phone] Care Team Providers Care Plow And Boring Machine Tender Name Role Phone Tip Olievr Primary Care Provider Reason for Visit * Reason Comments Outpatient Testing Encounter Details Date Type Department Care Team (Late st Contact Info) Description 11/02/2023 11:50 AM EDT [facility] [address] [facility] [place] [id number] [facility] [address] [facility] [place] [address] BPH with obstruction/lower urinary tract symptoms Allergies [...] use: lifetime. 300 Strip 3 01/04/2013 Active [place]-3 Fatty Acids (FISH OIL) 1360 MG CAPS [...] MORNING 90 Capsule 3 10/20/2023 Active Ipratropium [place] 0.03 % Nasal Solution (Atrovent) Administer 2 [...] enlargement 01/20/2018 REANNA on CPAP 02/08/2014 Overview: [employer]. Fax is [phone] Phone no is [phone] Labile hypertension 12/26/2011 Type 2 diabetes mellitus [...] mRNA, LNP-s, No Pre serve, 2-Dose Series ([employer]) 02/11/2021,06/15/2020,05/19/2020 COVID-19, MRNA-LNP, 23-24, P F, 30 [...] No 11/07/2022 Does the household have a [facility] hospital[facility] source of income? (Household - for ages [...] 1:00 PM EDT Office Visit Family Practice [facility] [address] [place] [address] Tip Oliver, [address] [place] [address] 08/23/2024 11:30 AM EDT Office Visit Urology, [facility] [address] [place] [address] Anthony Foster MD [address] [place] [address] 09/13/2024 1:00 PM EDT Office Visit Allergy/Immunology [place] [address] [facility] [place] [address] Keiry Schmitt PA-C 200 [facility] [place] [address] Pending Results Name Type Priority Associated Diagnoses [...] (LUTS) documented in this encounter Care Teams Plow And Boring Machine Tender Relationship Specialty Start Date End Date Tip Oliver DO 132 [facility] [place] [address] PCP - General Family Medicine 07/19/20 documented as of this encounter
--- OUTSIDE RECORDS SUMMARY | 2023-11-06 23:24 | External Medical Summary | Summary of Care ---
Author Name Unknown Organization [facility] Address [address] [facility] [place] [address] Phone [phone] Care Team Providers Care Sisal Operator Name Role Phone Tip Oliver Primary Care Provider Reason for Visit * Reason Comments Outpatient Testing Encounter Details Date Type Department Care Team (Late st Contact Info) Description 10/15/2023 12:00 PM EDT Laboratory Laboratory, [facility] [address] [place] [phone] [facility] [address] [place] [address] Type 2 diabetes mellitus with hemoglobin A1c goal of less than 7.0% ([facility]) Allergies Active Allergy Reactions Criticality Noted Date [...] use: lifetime. 300 Strip 3 01/04/2013 Active Dameron-3 Fatty Acids (FISH OIL) 1360 MG CAPS [...] QWEEK,Indications: on fridays, Reported on 12/11/2022 Ipratropium [place] 0.03 % Nasal Solution (Atrovent) Administer 2 [...] enlargement 01/20/2018 REANNA on CPAP 02/08/2014 Overview: [employer]. Fax is [phone] Phone no is [phone] Labile hypertension 12/26/2011 Type 2 diabetes mellitus [...] mRNA, LNP-s, No Pre serve, 2-Dose Series ([employer]) 02/11/2021,06/15/2020,05/19/2020 COVID-19, MRNA-LNP, 23-24, P F, 30 [...] No 11/07/2022 Does the household have a [facility] source of income? (Household - for [...] 1:00 PM EDT Office Visit Family Practice [facility] [address] [place] [address] [address] Tip Oliver, [address] [place] [address] 08/23/2024 11:30 AM EDT Office Visit Urology, [facility] [address] [place] [address] Anthoyn Foster MD [address] [place] [address] 09/13/2024 1:00 PM EDT Office Visit Allergy/Immunology [facility] [place] [address] [facility] [place] [address] Keiry Schmitt PA-C [address] [facility] [place] [address] Pending Results Name Type Priority Associated Diagnoses Date /Time BASIC METABOLIC PANEL Lab Routine Type 2 diabetes mellitus with hemoglobin A1c goal of less than 7.0% ([facility]) 10/15/2023 11:40 AM EDT Scheduled Procedures Name Priority Associated Diagnoses [...] 10/16/2021, Additional history exists GFR 06/15/2024 06/15/2023, 10/26, 08/21/2022, Additional history exists TSH 06/15/2024 06/15/2023, [...] (HCC) documented in this encounter Care Teams Sisal Operator Relationship Specialty Start Date End Date Tip Oliver DO [address] [place] [address] [address] PCP - General Family Medicine 07/19/20 documented as of this encounter
--- OUTSIDE RECORDS SUMMARY | 2023-11-06 23:24 | External Medical Summary ---
Author Name Unknown Address Unknown Organization [facility] [address] [place] [address] Laboratory Report Ordering Provider Test Date Status OMID RASHID 10/15/2023 11:40:47 Final Observation Date Value Abnormality Reference (Units ) Status BUN 10/15/2023 11:40:47 7 6-20 (mg/dL) Final Creatinine 10/15/2023 11:40:47 0.7 0.6-1.2 (mg/dL) Final Glomerular filtration rate/1.73 sq M.predicted [Volume Rate/Area] in Serum, Plasma or Blood by Creatinine-based formula (CKD-EPI) 10/15/2023 11:40:47 >90 >=60 (mL/min) Final eGFR is calculated based on the CKD-EPI 2020 equation Sodium 10/15/2023 11:40:47 137 135-146 (m mol/L) Final Potassium 10/15/2023 11:40:47 4.3 3.5-5.1 (m mol/L) Final Cl 10/15/2023 11:40:47 98 98-107 (mm ol/L) Final CO2 10/15/2023 11:40:47 28 22-32 (mmo l/L) Final Anion gap 10/15/2023 11:40:47 11 7-15 (mmol /L) Final Glucose 10/15/2023 11:40:47 179 Above high normal 70 -120 (mg/dL) Final Calcium 10/15/2023 11:40:47 9.8 8.4-10.2 ( mg/dL) Final Performing Location [facility] [place] [address]
--- OUTSIDE RECORDS SUMMARY | 2023-11-06 23:24 | External Medical Summary | Summary of Care ---
Author Name Unknown Organization [facility] Address [address] [facility] [place] [address] Phone [phone] Care Team Providers Care Cable Television Program Director Name Role Phone Tip Oliver Primary Care Provider Reason for Visit * Reason Comments Outpatient Testing Encounter Details Date Type Department Care Team (Late st Contact Info) Description 11/02/2023 11:50 AM EDT [facility] [address] [facility] [place] [phone] [facility] [address] [facility] [place] [address] BPH with obstruction/lower urinary tract symptoms Allergies [...] use: lifetime. 300 Strip 3 01/04/2013 Active [place]-3 Fatty Acids (FISH OIL) 1360 MG CAPS [...] MORNING 90 Capsule 3 10/20/2023 Active Ipratropium [place] 0.03 % Nasal Solution (Atrovent) Administer 2 [...] enlargement 01/20/2018 REANNA on CPAP 02/08/2014 Overview: [employer]. Fax is [phone] Phone no is [phone] Labile hypertension 12/26/2011 Type 2 diabetes mellitus [...] mRNA, LNP-s, No Pre serve, 2-Dose Series ([employer]) 02/11/2021,06/15/2020,05/19/2020 COVID-19, MRNA-LNP, 23-24, P F, 30 [...] No 11/07/2022 Does the household have a [facility] source of income? (Household - for [...] 1:00 PM EDT Office Visit Family Practice [facility] [address] [place] [address] [address] Tip Oliver, [address] [place] [address] 08/23/2024 11:30 AM EDT Office Visit Urology, [facility] [address] [place] [address] [address] Anthony Foster MD [address] [place] [address] 09/13/2024 1:00 PM EDT Office Visit Allergy/Immunology [facility] [place] [address] [facility] [place] [address] Keiry Schmitt PA-C [address] [facility] [place] [address] Pending Results Name Type Priority Associated Diagnoses [...] (LUTS) documented in this encounter Care Teams Cable Television Program Director Relationship Specialty Start Date End Date Tip Oliver DO [address] [facility] [place] [address] PCP - General Family Medicine 07/19/20 documented as of this encounter
--- OUTSIDE RECORDS SUMMARY | 2023-11-06 23:24 | External Medical Summary | Summary of Care ---
Author Name Unknown Organization [facility] Address [address] [facility] [place] [address] Phone [phone] Care Team Providers Care Windows Application Packager Name Role Phone Tip Oliver Primary Care Provider Reason for Visit * Reason Onset Date Comments Medication Refill 10/31/2023 Encounter Details Date Type Department Care Team (Late st Contact Info) Description 10/31/2023 Refill Allergy/Immunology [facility] [place] [address] [place] [address] Rahat Miller MD [address] [place] [address] Allergies Active Allergy Reactions Criticality Noted Date [...] use: lifetime. 300 Strip 3 3 Active [place]-3 Fatty Acids (FISH OIL) 1360 MG CAPS [...] area of the ear. 80 g 5 3 Active Famotidine 20 MG Oral Tablet [...] 4 Active Carvedilol 25 MG Oral Tablet (Coreg)Indications:S [...] EVERY MORNING 90 Capsule 3 4 Active Ipratropium [place] 0.03 % Nasal Solution (Atrovent) Administer 2 Sprays into nostril in the morning and 2 Sprays at noon and 2 Sprays before bedtime. 30 mL 6 4 Active Ipratropium [place] 0.03 % Nasal Solution (Atrovent) Administer 2 Sprays into nostril in the morning and 2 Sprays at noon and 2 Sprays before bedtime. 30 mL 6 3 10/31/19 24 Discontinu ed(Refill) documented as of this encounter (statuses as [...] enlargement 01/20/2018 REANNA on CPAP 02/08/2014 Overview: [employer]. Fax is [phone] Phone no is [phone] Labile hypertension 12/26/2011 Type 2 diabetes mellitus [...] mRNA, LNP-s, No Pre serve, 2-Dose Series ([employer] 02/11/2021,06/15/2020,05/19/2020 COVID-19, MRNA-LNP, 23-24, P F, 30 MCG/0.3 mL, 12 YRS AND ABOVE, IM ([employer] [place]) 02/12/2023 Covid-19, Mrna, Lnp-s, Pf, B ivalent, [...] encounter Miscellaneous Notes * Telephone Encounter - Rahat Miller MD - 11/02/2023 7:37 AM EDTSigned Prescriptions: Disp Refills Ipratropium [place] 0.03 % Nasal Solution *30 mL 6 Sig: Administer 2 Sprays into nostril in the morning and 2 Sprays at noon and 2 Sprays before bedtime. Authorizing Provider: RAHAT MILLER * Telephone Encounter - Mariana Gr LPN - 11/02/2023 7:27 AM EDT Pending Prescriptions: Disp Refills Ipratropium [place] 0.03 % Nasal Solution *30 mL 6 Sig: Administer 2 Sprays into nostril in the morning and 2 Sprays at noon and 2 Sprays before bedtime. * Telephone Encounter - Mariana Gr LPN - 11/02/2023 7:27 AM EDT Pending Prescriptions: Disp Refills Ipratropium [place] 0.03 % Nasal Solution*30 mL 6 Sig: Administer 2 Sprays into nostril in the morning and 2 Sprays at noon and 2 Sprays before bedtime. Last Visit: 2023 (in office), Visit date not found (telemedicine) Next Visit: 09/13/2024 Last date the medication was ordered: 10/17/22 Health Maintenance Topic Date Due COVID-19 Vaccine ( season) 2023 Diabetic Foot Exam 11/22/2023 Depression Screening 12/12/2023 HbA1c 12/14/2023 Influenza Vaccine (FLU shot) (1) 12/27/2023 Colonoscopy 03/17/2024 O2 ASSESSMENT COMPLETED IN PAST YEAR FOR COPD 03/17/2024 Albumin/Creatinine Ratio 06/15/2024 TSH 06/15/2024 B-12 06/15/2024 Diabetic Eye Exam 07/30/2024 GFR 10/14/2024 DTaP,Tdap,and Td Vaccines (3 - Td or Tdap) 02/01/2028 Alpha-1 Antitrypsin Completed Lung Cancer Screening Completed Zoster Vaccines Completed Pneumococcal Vaccine: 65+ Years Completed Hepatitis B Vaccine Aged Out MENINGOCOCCAL (MENACTRA/MENVEO) Aged Out HPV (Gardasil) Vaccine Aged Out RETIRED - COLONOSCOPY-ANNUAL AGES 18-100 Discontinued Labs: Lab Results Component Value Date/Time CREATININE - [facility] 0.7 10/15/2023 11:40 AM CREATININE - [facility] 0.8 12/09/2019 11:55 AM CREATININE, 24-HOUR URINE 1.57 08/02/2021 10:06 AM CREATININE, RANDOM URINE - [facility] 83 06/15/2023 02:24 PM CREATININE, RANDOM URINE - [facility] 56 11/22/2016 11:17 AM Lab Results Component Value Date/Time POTASSIUM - [facility] 4.3 10/15/2023 11:40 AM POTASSIUM - [facility] 4.0 12/09/2019 11:55 AM Lab Results Component Value Date/Time TSH - [facility] 1.23 06/15/2023 02:19 PM TSH - [facility] 2.45 06/15/2019 01:57 PM Lab Results Component Value Date/Time LDL CHOLESTEROL (CALCULATED) - [facility] 38 06/15/2023 02:19 PM LDL CHOLESTEROL (CALCULATED) - [facility] 49 05/29/2022 03:38 PM LDL CHOLESTEROL (CALCULATED) - [facility] 48 12/09/2019 11:55 AM LDL CHOLESTEROL (CALCULATED) - [facility] 52 05/31/2018 10:53 AM LDL CHOLESTEROL (DIRECT MEASURE) - [facility] NOT APPLICABLE 12/09/2019 11:55 AM LDL CHOLESTEROL (DIRECT MEASURE) - [facility] 50 06/15/2019 01:57 PM LDL CHOLESTEROL (DIRECT MEASURE) - [facility] NOT APPLICABLE 05/31/2018 10:53 AM Lab Results Component Value Date/Time ALT 25 01/25/1996 03:00 PM ALT - [facility] 25 06/15/2023 02:19 PM ALT - [facility] 29 12/09/2019 11:55 AM ALTERNARIA IGE - [facility] <0.20 08/21/2021 02:02 PM Hemoglobin AIC Results: Lab Results Component Value Date/Time HEMOGLOBIN A1C - [facility] 6.8 (H) 06/15/2023 02:19 PM HEMOGLOBIN A1C - [facility] 7.0 (H) 12/08/2022 10:08 AM HEMOGLOBIN A1C - [facility] 7.2 (H) 08/21/2022 02:00 PM HEMOGLOBIN A1C - [facility] 7.3 (H) 12/09/2019 11:55 AM HEMOGLOBIN A1C - [facility] 7.5 (H) 11/04/2018 11:14 AM HEMOGLOBIN A1C - [facility] 6.5 (H) 05/31/2018 10:53 AM documented in this encounter Plan of Treatment Upcoming Encounters Date Type Department Care Team (Late st Contact Info) Description 12/17/2023 1:00 PM EDT Office Visit Family Practice [facility] [address] [address] [address] Tip Oliver DO [address] [place] [address] 08/23/2024 11:30 AM EDT Office Visit Urology, [facility] [address] [place] [address] [address] Anthony Foster MD [address] [place] [address] 09/13/2024 1:00 PM EDT Office [facility] [place] [address] [place] [address] Keiry Schmitt PA-C [address] [place] [address] Scheduled Procedures Name Priority Associated Diagnoses Date/Ti [...] 08/14/2015, 10/27/2013, 09/25/1997 Zoster Vaccines Completed 02/22/2019, 0811/2018, 03/02/2012 RETIRED - COLONOSCOPY-ANNUAL AGES 18-100 Discontinued [...] filedocumented as of this encounter Care Teams Windows Application Packager Relationship Specialty Start Date End Date Tip Oliver DO [address] [place] [address] PCP - General Family Medicine 07/19/20 documented as of this encounter
--- OUTSIDE RECORDS SUMMARY | 2023-11-06 23:24 | External Medical Summary | Summary of Care ---
Author Name Unknown Organization [facility] Address [address] [facility] [place] [address] Phone [phone] Care Team Providers Care Molasses Coloring Operator Name Role Phone Tip Oliver Primary Care Provider Reason for Visit * Reason Comments Outpatient Testing Encounter Details Date Type Department Care Team (Late st Contact Info) Description 11/02/2023 11:50 AM EDT [facility] [address] [facility] [place] [phone] [facility] [address] [facility] [place] [address] BPH with obstruction/lower urinary tract symptoms Allergies [...] use: lifetime. 300 Strip 3 01/04/2013 Active [place]-3 Fatty Acids (FISH OIL) 1360 MG CAPS [...] MORNING 90 Capsule 3 10/20/2023 Active Ipratropium [place] 0.03 % Nasal Solution (Atrovent) Administer 2 [...] enlargement 01/20/2018 REANNA on CPAP 02/08/2014 Overview: [employer]. Fax is [phone] Phone no is [phone] Labile hypertension 12/26/2011 Type 2 diabetes mellitus [...] mRNA, LNP-s, No Pre serve, 2-Dose Series ([employer]) 02/11/2021,06/15/2020,05/19/2020 COVID-19, MRNA-LNP, 23-24, P F, 30 [...] No 11/07/2022 Does the household have a [facility] source of income? (Household - for [...] 1:00 PM EDT Office Visit Family Practice [facility] [address] [place] [address] [address] Tip Oliver, [address] [place] [address] [address] 08/23/2024 11:30 AM EDT Office Visit Urology, [facility] [address] [place] [address] [address] Anthony Foster MD [address] [place] [address] [address] 09/13/2024 1:00 PM EDT Office Visit Allergy/Immunology [facility] [place] 200 [facility] [place] [address] Keiry Schmitt PA-C [address] [facility] [place] [address] Pending Results Name Type Priority Associated Diagnoses [...] (LUTS) documented in this encounter Care Teams Molasses Coloring Operator Relationship Specialty Start Date End Date Tip Oliver DO [address] [facility] [place] [address] PCP - General Family Medicine 07/19/20 documented as of this encounter
--- OUTSIDE RECORDS SUMMARY | 2023-11-06 23:25 | External Medical Summary | Summary of Care ---
Author Name Unknown Organization [facility] Address [address] [facility] [place] [address] Phone [phone] Care Team Providers Care Fire Prevention Forester Name Role Phone Tip Oliver Primary Care Provider Encounter Details Date Type Department Care Team (Late st Contact Info) Description 09/10/2023 Patient Reported Data Patient Survey Ortho [facility] Allergies Active Allergy Reactions Criticality Noted Date Comments Povidone Iodine 08/21/2021 Iodides Rash Medium 12/13/1998 Allergy to Betadine- Iodinated Contrast Media Itching 05/31/2018 Iodine Itching 04/06/2012 Amlodipine Besylate Edema Other High 08/12/2013 Severe edema of feet and lower legs Shellfish-Derived Products Rash High 2 documented as of this encounter (statuses as of 09/10/2023) Medications Medication Sig Dispensed Refills Start Date End Date Status ASPIRIN 81 MG PO TABS Take by mouth at bedtime. 0 Active FREESTYLE LANCETS MISCIndications:DM type 2, goal A1c below 7 use for testing up to 2 times a day. dx 250.00. estimated use: lifetime. 3 Box 3 01/04/2013 Active FREESTYLE TEST STRPIndications:DM type 2, goal A1c below 7 use for testing up to 2 times a day. dx 250.00. estimated use: lifetime. 300 Strip 3 01/04/2013 Active [place]-3 Fatty Acids (FISH OIL) 1360 MG CAPS Take by mouth. 0 Active Multiple Vitamins-Minerals (DAILY MULTIVITAMIN) CAPS Take by mouth. 0 Active Insulin Pen Needle (BD PEN NEEDLE MARISA U/F) 32G X 4 MM Use once daily 100 Each 3 03/19/2018 Active Wheat Dextrin (BENEFIBER) powder Take by mouth daily. 0 Active Acetaminophen 325 MG Oral Tablet (Tylenol) Take 2 Tablets by mouth every 6 hours as needed for Pain, Mild or Pain, Moderate. 0 Active PreserVision AREDS 2 Oral Capsule Take 1 Capsule by mouth every evening. 0 Active Vitamin D-3 25 MCG (1000 UT) Oral Capsule Take 1 Capsule by mouth in the morning. 0 Active Slow Fe 142 (45 Fe) MG Oral Tablet Extended Release (Ferrous Sulfate ER) Take by mouth. 0 Active Ozempic (2 MG/DOSE) 8 MG/3ML Subcutaneous Solution Pen-injector (Semaglutide (2 MG/DOSE)) Inject 0.75 mL under the skin once a week. 3 mL 5 09/18/2022 Active Additional Information Patient taking differently:2 mg Subcutaneous QWEEK,Indications: on fridays, Reported on 12/11/2022 Ipratropium [place] 0.03 % Nasal Solution (Atrovent) Administer 2 Sprays into nostril in the morning and 2 Sprays at noon and 2 Sprays before bedtime. 30 mL 6 10/17/2022 Active Carvedilol 25 MG Oral Tablet (Coreg)Indications:S VT (supraventricular tachycardia) (HCC) TAKE 1 TABLET BY MOUTH EVERY MORNING AND TAKE 1 TABLET BEFORE BEDTIME 180 Tablet 3 10/29/2022 Active Tamsulosin HCl 0.4 MG Oral Capsule [...] the morning. 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 Hx of dysplastic nevus 05/15/2023 Overview: Mildly atypical nevus (L medial thigh) COPD, group A, by GOLD 2017 classification 12/08 Overview: Per COPD GOLD Classification SVT (supraventricular tachycardia) 05/29/2022 COBIAN (dyspnea on exertion) 10/25/2021 Persistent cough for 3 weeks or longer Hoarseness of voice 07/05/2021 Iron deficiency anemia 02/15/2021 Obesity, Class I, BMI 30.0-34.9 (see actual BMI) 11/22/2020 Balance problems 10/18/2019 Hx of nonmelanoma skin cancer 05/25/2019 Overview: basal cell carcinoma (L mid helix 05/15) HTN, goal below 130/80 05/22/2019 Ascending aorta dilatation 12/13/2018 Nonobstructive atherosclerosis of coronary arter y 12/13/2018 Aortic root enlargement 01/20/2018 REANNA on CPAP 02/08/2014 Overview: [employer] Fax is [phone] Phone no is [phone] Labile hypertension 12/26/2011 Type 2 diabetes mellitus [...] as of this encounter (statuses as of 09/10/2023) Resolved Problems Problem Noted Date Diagnosed Date [...] update of inactive term OCCUP CIRCUMSTANCES NEC 09/17/20000 12/2003 Chest pain 09/06/1999 10/04/2003 Abdominal pain, [...] as of this encounter (statuses as of 09/10/2023) Immunizations Name Administration Dates Next Due COVID-19 mRNA, LNP-s, No Pre serve, 2-Dose Series ([employer]) 02/11/2021,06/15/2020,05/19/2020 COVID-19, MRNA-LNP, 23-24, P F, 30 MCG/0.3 mL, 12 YRS AND ABOVE, IM ([employer] [facility]) 02/12/2023 Covid-19, Mrna, Lnp-s, Pf, B ivalent, [...] Influenza, Trivalen t, Adjuvanted, 65+ yrs 01/04/2019 TDAP (age 11 and older)(Adacel) 12/01/2007 Varicella Zoster Vaccine (Adult) 03/02/2012 Zoster [...] money to get more. Never true 11/07/2022 Sex and Gender Information Value Date [...] Care Team (Late st Contact Info) Description 2023 1:30 PM EDT Office Visit Allergy/Immunology [facility] [address] [place] [address] Enrique Mcpherson MD [address] [place] [address] 09/25/2023 1:00 PM EDT Office Visit Orthopaedics [facility] [address] [place] [address] Gigi Phillips MD [address] [place] [address] 10/02/2023 10:15 AM EDT Imaging Radiology [facility] [address] [place] [address] 10/08/2023 2:30 PM EDT Office Visit Orthopaedics [facility] [address] [place] [address] Bennie Law, DO [address] [place] [address] 10/15/2023 10:00 AM EDT Cardiac Studies Cardiology, [facility] [address] [place] [address] [facility] [address] [place] [address] 12/17/2023 1:00 PM EDT Office Visit Family Practice [facility] [address] [place] [address] Tip Oliver, DO [address] [place] [address] 08/23/2024 11:30 AM EDT Office Visit Urology, [facility] [address] [place] [address] Anthony Foster MD [address] [place] [address] Scheduled Procedures Name Priority Associated Diagnoses Date/Ti me COLONOSCOPY FLEXIBLE PROXIMA L DIAGNOSTIC Recall History of colonic polyps Health Maintenance Due Date Last Done Comments Diabetic Eye Exam 07/19/2023 07/18/2022, , 06/27/2022, Additional history exists Diabetic Foot Exam 11/22/2023 [...] 08/21/2022, Additional history exists TSH 06/15/2024 06/15/2023, 1211/2021, 02/20/2022, Additional history exists DTaP,Tdap,and Td Vaccines (3 - Td or Tdap) 02/01/2028 01/31/2018 (Declined), 12/01/2007, 09/25/1997 Pneumococcal Vaccine: 65+ Years Completed 08/14/2015, 10/27/2013, 09/25/1997 Zoster Vaccines Completed 02/22/2019, 08/0 11/2018, 03/02/2012 Lung Cancer Screening Completed 09/30/2022, 022 COVID-19 Vaccine Completed 02/12/2023, , 02/11/2021, Additional history exists Influenza Vaccine (FLU shot) Completed 02/12/2023, 01/10/2022, 02/14/2021, Additional history exists RETIRED - COLONOSCOPY-ANNUAL AGES 18-100 Discontinued 03/17/2023, 12/15/2022, 12/15/2022, Additional history exists Alpha-1 Antitrypsin Completed 06/15/2023 GARDASIL-HPV IMMUNIZATION SERIES Aged Out No longer eligible based on patient's age to complete this topic Hepatitis B Aged Out No longer eligi ble based on patient's age to complete this topic MENINGOCOCCAL (MENACTRA/MENVEO) Aged Out No longer eligible based on patient's age to complete this topic documented as of this encounter Medical Devices Not on filedocumented as of this encounter Care Teams Fire Prevention Forester Relationship Specialty Start Date End Date Tip Oliver DO [address] [place] [address] PCP - General Family Medicine 07/19/20 documented as of this encounter
--- OUTSIDE RECORDS SUMMARY | 2023-11-06 23:25 | External Medical Summary | Summary of Care ---
Author Name Unknown Organization [facility] Address [address] [facility] [place] [address] Phone [phone] Care Team Providers Care Manager Bridge Name Role Phone Tip Oliver Primary Care Provider Reason for Visit * Reason Onset Date Comments Appointment 09/23/2023 [facility] appointment Encounter Details Date Type Department Care Team (Late st Contact Info) Description 09/23/2023 Telephone Cardiology, [facility] [address] [employer] [place] [address] Heavenly Martin [facility] [address] [facility] [place] [address] Appointment (DC appointment ) Allergies Active Allergy Reactions Criticality Noted Date Comments Povidone Iodine 08/21/2021 Iodides Rash Medium 12/13/1998 Allergy to Betadine- Iodinated Contrast Media Itching 05/31/2018 Iodine Itching 04/06/2012 Amlodipine Besylate Edema Other High 08/12/2013 Severe edema of feet and lower legs Shellfish-Derived Products Rash High 2 documented as of this encounter (statuses as of 09/23/2023) Medications Medication Sig Dispensed Refills Start Date [...] use: lifetime. 300 Strip 3 01/04/2013 Active [place]-3 Fatty Acids (FISH OIL) 1360 MG CAPS [...] QWEEK,Indications: on fridays, Reported on 12/11/2022 Ipratropium [place] 0.03 % Nasal Solution (Atrovent) Administer 2 [...] as of this encounter (statuses as of 09/23/2023) Active Problems Problem Noted Date Diagnosed Date [...] enlargement 01/20/2018 REANNA on CPAP 02/08/2014 Overview: [employer]. Fax is [phone] Phone no is [phone] Labile hypertension 12/26/2011 Type 2 diabetes mellitus [...] as of this encounter (statuses as of 09/23/2023) Resolved Problems Problem Noted Date Diagnosed Date [...] as of this encounter (statuses as of 09/23/2023) Immunizations Name Administration Dates Next Due COVID-19 mRNA, LNP-s, No Pre serve, 2-Dose Series (Rank By Search) 02/11/2021,06/15/2020,05/19/2020 COVID-19, MRNA-LNP, 23-24, P F, 30 MCG/0.3 mL, 12 YRS AND ABOVE, IM ([facility]) 02/12/2023 Covid-19, Mrna, Lnp-s, Pf, B ivalent, 30 Mcg, IM, 12 yrs and above (Rank By Search) 01/10/2022 H1N1 2009 Influenza, IM 04/30/2009 Pneumococcal [...] encounter Miscellaneous Notes * Telephone Encounter - HamptonAyesha LPN - 09/23/2023 10:11 AM EDT MyG message sent to patient regarding cancellation of [facility] appointment. Patient is monitored remotely, IOC not indicated at this time, documented in this encounter Plan of Treatment Upcoming Encounters Date Type Department Care Team (Late st Contact Info) Description 09/25/2023 1:00 PM EDT Office Visit Orthopaedics [facility] [address] [place] [address] Gigi Phillips MD [address] [place] [address] 10/02/2023 10:15 AM EDT Imaging Radiology [facility] 1st [facility] [address] [place] [address] 10/08/2023 2:30 PM EDT Office Visit Orthopaedics [facility] [address] [place] [address] Bennie Law, DO [address] [place] [address] 10/15/2023 10:00 AM EDT Cardiac Studies Cardiology, [facility] [address] [place] [address] [facility] [address] [place] [address] 12/17/2023 1:00 PM EDT Office Visit Family Practice [facility] [address] [place] [address] Tip Oliver, DO [address] [place] [address] 08/23/2024 11:30 AM EDT Office Visit Urology, [facility] [address] [place] [address] Anthony Foster MD [address] [place] [address] 09/13/2024 1:00 PM EDT Office Visit Allergy/Immunology [facility] [place] [address] [facility] [place] [address] Keiry Schmitt PA-C 200 [facility] [place] [address] Scheduled Procedures Name Priority Associated Diagnoses Date/Ti me COLONOSCOPY FLEXIBLE PROXIMA L DIAGNOSTIC Recall History of colonic polyps Health Maintenance Due Date Last Done Comments COVID-19 Vaccine ( season) 2023 02/12/2023, 01/10/2022, 02/11/2021, Additional history exists Diabetic Eye Exam 07/19/2023 07/18/2022, , 06/27/2022, [...] 08/21/2022, Additional history exists TSH 06/15/2024 06/15/2023, 11/2021, 02/20/2022, Additional history exists DTaP,Tdap,and Td Vaccines (3 - Td or Tdap) 02/01/2028 01/31/2018 (Declined), 12/01/2007, 09/25/1997 Pneumococcal Vaccine: 65+ Years Completed 08/14/2015, 10/27/2013, 09/25/1997 Zoster Vaccines Completed 02/22/2019, 11/2018, 03/02/2012 Lung Cancer Screening Completed 09/30/2022, 022 Influenza Vaccine (FLU shot) Completed 02/12/2023, 01/10/2022, [...] filedocumented as of this encounter Care Teams Manager Bridge Relationship Specialty Start Date End Date Tip Oliver DO [address] [place] [address] PCP - General Family Medicine 07/19/20 documented as of this encounter
--- OUTSIDE RECORDS SUMMARY | 2023-11-06 23:25 | External Medical Summary | Summary of Care ---
Author Name Unknown Organization [facility] Address [address] [facility] [place] [address] Phone [phone] Care Team Providers Care Freight Agent Name Role Phone Tip Oliver Primary Care [...] use: lifetime. 300 Strip 3 01/04/2013 Active [place]-3 Fatty Acids (FISH OIL) 1360 MG CAPS [...] QWEEK,Indications: on fridays, Reported on 12/11/2022 Ipratropium [place] 0.03 % Nasal Solution (Atrovent) Administer 2 [...] COPD GOLD Classification SVT (supraventricular tachycardia) 05/29/2022 COBAIN (dyspnea on exertion) 10/25/2021 Persistent cough for [...] enlargement 01/20/2018 REANNA on CPAP 02/08/2014 Overview: [employer]. Fax is [phone] Phone no is [phone] Labile hypertension 12/26/2011 Type 2 diabetes mellitus [...] mRNA, LNP-s, No Pre serve, 2-Dose Series ([employer]) 02/11/2021,06/15/2020,05/19/2020 COVID-19, MRNA-LNP, 23-24, P F, 30 MCG/0.3 mL, 12 YRS AND ABOVE, IM ([facility]) 02/12/2023 Covid-19, Mrna, Lnp-s, Pf, B [...] State [place] [address] [place] [address] Enrique Mcpherson MD [address] [place] [address] 09/25/2023 1:00 PM EDT Office Visit Orthopaedics [facility] [address] [place] [address] Gigi Phillips MD [address] [place] [address] 10/02/2023 10:15 AM EDT Imaging Radiology [facility] 1st [facility] [address] [place] [address] 10/08/2023 2:30 PM EDT Office Visit Orthopaedics [facility] [address] [place] [address] Bennie Law, DO [address] [place] [address] 10/15/2023 10:00 AM EDT Cardiac Studies Cardiology, [facility] [address] [place] [address] [facility] [address] [place] [address] 12/17/2023 1:00 PM EDT Office Visit Family Practice [facility] [address] [place] [address] Tip Oliver, DO [address] [place] [address] 08/23/2024 11:30 AM EDT Office Visit Urology, [facility] [address] [place] [address] Anthony Foster MD [address] [place] [address] Scheduled Procedures Name Priority Associated Diagnoses Date/Ti [...] filedocumented as of this encounter Care Teams Freight Agent Relationship Specialty Start Date End Date Tip Oliver DO [address] [place] [address] PCP - General Family Medicine 07/19/20 documented as of this encounter
--- OUTSIDE RECORDS SUMMARY | 2023-11-06 23:25 | External Medical Summary | Summary of Care ---
Author Name Unknown Organization [facility] Address [address] [facility] [place] [address] Phone [phone] Care Team Providers Care Cell Cleaner Name Role Phone Tip Oliver Primary Care Provider Reason for Visit * Reason Comments Follow Up L knee Encounter Details Date Type Department Care Team (Late st Contact Info) Description 09/25/2023 1:00 PM EDT Office Visit Orthopaedics [facility] [address] [place] [address] Gigi Phillips MD [address] [place] [address] Injury of left lower leg, initial encounter* Allergies Active Allergy Reactions Criticality Noted Date Comments Povidone Iodine 08/21/2021 Iodides Rash Medium 12/13/1998 Allergy to Betadine- Iodinated Contrast Media Itching 05/31/2018 Iodine Itching 04/06/2012 Amlodipine Besylate Edema Other High 08/12/2013 Severe edema of feet and lower legs Shellfish-Derived Products Rash High 2 documented as of this encounter (statuses as of 09/25/2023) Medications Medication Sig Dispensed Refills Start Date [...] use: lifetime. 300 Strip 3 01/04/2013 Active [place]-3 Fatty Acids (FISH OIL) 1360 MG CAPS [...] QWEEK,Indications: on fridays, Reported on 12/11/2022 Ipratropium [place] 0.03 % Nasal Solution (Atrovent) Administer 2 [...] as of this encounter (statuses as of 09/25/2023) Active Problems Problem Noted Date Diagnosed Date [...] enlargement 01/20/2018 REANNA on CPAP 02/08/2014 Overview: [employer]. Fax is [phone] Phone no is [phone] Labile hypertension 12/26/2011 Type 2 diabetes mellitus [...] as of this encounter (statuses as of 09/25/2023) Resolved Problems Problem Noted Date Diagnosed Date [...] as of this encounter (statuses as of 09/25/2023) Immunizations Name Administration Dates Next Due COVID-19 mRNA, LNP-s, No Pre serve, 2-Dose Series ([employer]) 02/11/2021,06/15/2020,05/19/2020 COVID-19, MRNA-LNP, 23-24, P F, 30 MCG/0.3 mL, 12 YRS AND ABOVE, IM ([facility]) 02/12/2023 Covid-19, Mrna, Lnp-s, Pf, B ivalent, 30 Mcg, IM, 12 yrs and above ([employer]) 01/10/2022 H1N1 2009 Influenza, IM 04/30/2009 Pneumococcal [...] on file documented as of this encounter Progress Notes * Gigi Phillips MD - 09/25/2023 1:09 PM EDT Ann Joseph [id number] Ann Joseph is a 77 year old male who presents for f/u to [facility] for left leg injury/pain. I saw him originally for this on 08/17/2023 Ann Joseph is here unaccompanied Quality: reviewed and agree with Nursing Notes for HPI elements History: History on 08/17/2023 - -L knee -Pt is Diabetic with A1C of 7.0 -Pt denies injections or sx to L knee -Pt is unaccompanied today -Pt is RETIRED -Pt was treated and released at [facility] on Thursday08/15/23 --Pt c/o bruising of L Lower Extremity -referral by [facility] for Pt to f/u with ORTHO GW -Xray L knee at [facility] on 08/15/23 -Xray showed effusion and edema Since that visit: f/u -L knee -Pt is Diabetic with A1C of 6.8 pm 06/15/23 -Pt denies injections or sx to L knee -Pt denies pain today -Pt is unaccompanied today -Pt stated swelling in L knee has subsided ROS: ROS per HPI otherwise non-contributory Past Medical History: Diagnosis Date Aortic root enlargement (HCC) 01/20/2018 Ascending aorta dilatation (HCC) 12/13/2018 Balance problems 10/18/2019 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 adenomatous/repeat colonoscopy in 5 yrs COVID-19 04/12/2020 Depressive disorder, not elsewhere classified 10/30/2000 Diabetes 1.5, managed as type 2 (HCC) Diverticulosis of colon 10/01/2005 Dyslipidemia, goal LDL below 160 Hypercholesterolemia Esophageal reflux 09/06/1999 Hoarseness of voice 07/05/2021 HTN, goal below 140/90 Hypertension, benign IMPOTENCE, 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 Iron deficiency anemia 02/15/2021 Lyme disease 02/28/2004 Mitral valve prolapse 05/09/2003 Nonobstructive atherosclerosis of coronary artery 12/13/2018 Solitary kidney Type 2 diabetes mellitus with hemoglobin A1c goal of less than 7.0% ([facility]) 08/20/2010 ICD-10 update of inactive term Family History Problem Relation Name Age of Onset Cancer Mother colon cancer at 56yo Cancer Father lung cancer at 74 yo Stroke Grandfather (Maternal) Depression Son Diabetes Aunt (Unspecified) Cancer Aunt (Unspecified) Cancer Aunt (Unspecified) Social History Socioeconomic History Marital status: Spouse name: Not on file Number of children: 2 Years of education: Not on file Highest education level: Not on file Occupational History 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 Comment: [employer] Tobacco Use Smoking status: Former Current packs/day: 0.00 Average packs/day: 0.5 packs/day for 48.0 years (24.0 ttl pk-yrs) Types: Cigarettes Start date: 04/28/1961 Quit date: 04/28/2009 Years since quittin.4 Smokeless tobacco: Former Types: Snuff Quit date: 05/24/2009 Tobacco comments: Passive smoke exposure from son who lives with him Vaping Use Vaping status: Never Used Substance and Sexual Activity Alcohol use: Yes Comment: very occasional-2 beers every couple of months Drug use: No Sexual activity: Yes Partners: Female Other Topics Concern Not on file Social History Narrative Not on file Social Determinants of Health Financial Resource Strain: Not on file Food Insecurity: No Food Insecurity (11/07/2022) Hunger Vital Sign Worried About Running Out of Food in the Last Year: Never true Ran Out of Food in the Last Year: Never true Transportation Needs: Not on file Physical Activity: Not on file Stress: Not on file Social Connections: Not on file Intimate Partner Violence: Not on file Housing Stability: Not on file Physical Exam Constitutional: Generally well-nourished and in no acute distress Psychiatric: Mood and Affect normal Eyes: EOMI Respiratory: Normal respiratory effort with regular rate and rhythm Cardiovascular: No edema in the affected extremity(s) Knee Exam: left Previous ecchymosis has essentially resolved, no effusion noted on exam full range of motion mild tenderness in the distal quadriceps tendon Radiology: The following studies were obtained at an outside ER I have the formal report but not the images. 08/15/2023: Three-view x-ray of the left knee ( Note I am uncertain if these are weight-bearing studies) Important from findings: Minimal degenerative joint space narrowing. Chondrocalcinosis is noted in the medial and lateral compartments. Impression: 1. Soft tissue swelling and joint effusion with no fracture identified 2. Osteopenia with mild degenerative change in chondrocalcinosis as above 08/15/2023: Ultrasound left lower extremity venous Impression: There is no sonographic evidence of deep venous thrombosis identified in the left lowerextremity. Assessment and Plan: 1) Left lower extremity pain/ecchymosis Originally I suspected medial hamstring strain, however, that is not certain. Symptoms has essentially resolved since I saw him With limited unofficial diagnostic ultrasound again today patient essentially had normal joint fluid He will follow up p.r.n. Gigi Phillips MD Primary Care Sports Medicine Orthopaedics [address] [place] [address] documented in this encounter Nursing Notes * Ruby Tellez LPN - 09/25/2023 1:00 PM EDT -f/u -L knee -Pt is Diabetic with A1C of 6.8 pm 06/15/23 -Pt denies injections or sx to L knee -Pt denies pain today -Pt is unaccompanied today -Pt stated swelling in L knee has subsided Tana Randhawa LPN documented in this encounter Plan of Treatment Upcoming Encounters Date Type Department Care Team (Late st Contact Info) Description 10/02/2023 10:15 AM EDT Imaging Radiology [facility] 1st Floor, [address] [place] [address] 10/08/2023 2:30 PM EDT Office Visit Orthopaedics [address] [place] [address] Bennie Law, [facility] [address] [place] [address] 12/17/2023 1:00 PM EDT Office Visit Family Practice [address] [facility] [place] [address] Tip Oliver, [address] [facility] [place] [address] 08/23/2024 11:30 AM EDT Office Visit Urology, [facility] [address] [place] [address] Anthony Foster MD [address] [place] [address] 09/13/2024 1:00 PM EDT Office Visit Allergy/Immunology [facility] 200 [facility] [place] [address] Keiry Schmitt PA-C 200 [facility] [place] [address] Scheduled Procedures Name Priority Associated Diagnoses Date/Ti [...] as of this encounter Visit Diagnoses Diagnosis Injury of left lower leg, initial encounter- Primary documented in this encounter Care Teams Cell Cleaner Relationship Specialty Start Date End Date Tip Oliver DO [address] [place] [address] PCP - General Family Medicine 07/19/20 documented as of this encounter
--- OUTSIDE RECORDS SUMMARY | 2023-11-06 23:25 | External Medical Summary | Summary of Care ---
Author Name Unknown Organization [facility] Address [address] [facility] [place] [address] Phone [phone] Care Team Providers Care Account Services Specialist Name Role Phone Tip Oliver Primary Care [...] use: lifetime. 300 Strip 3 01/04/2013 Active [place]-3 Fatty Acids (FISH OIL) 1360 MG CAPS [...] QWEEK,Indications: on fridays, Reported on 12/11/2022 Ipratropium [place] 0.03 % Nasal Solution (Atrovent) Administer 2 [...] enlargement 01/20/2018 REANNA on CPAP 02/08/2014 Overview: [employer]. Fax is [phone] Phone no is [phone] Labile hypertension 12/26/2011 Type 2 diabetes mellitus [...] mRNA, LNP-s, No Pre serve, 2-Dose Series ([employer]) 02/11/2021,06/15/2020,05/19/2020 COVID-19, MRNA-LNP, 23-24, P F, 30 MCG/0.3 mL, 12 YRS AND ABOVE, IM ([facility] 02/12/2023 Covid-19, Mrna, Lnp-s, Pf, B [...] State [place] [address] [place] [address] Enrique Mcpherson MD [address] [place] [address] 09/25/2023 1:00 PM EDT Office Visit Orthopaedics [facility] [address] [place] [address] Gigi Phillips MD [address] [place] [address] 10/02/2023 10:15 AM EDT Imaging Radiology [facility] 1st [facility] [address] [place] [address] 10/08/2023 2:30 PM EDT Office Visit Orthopaedics [facility] [address] [place] [address] Bennie Law, DO [address] [place] [address] 10/15/2023 10:00 AM EDT Cardiac Studies Cardiology, [facility] [address] [place] [address] [facility] [address] [place] [address] 12/17/2023 1:00 PM EDT Office Visit Family Practice [facility] [address] [place] [address] Tip Oliver, DO [address] [place] [address] 08/23/2024 11:30 AM EDT Office Visit Urology, [facility] [address] [place] [address] Anthony Foster MD [address] [place] [address] Scheduled Procedures Name Priority Associated Diagnoses Date/Ti [...] filedocumented as of this encounter Care Teams Account Services Specialist Relationship Specialty Start Date End Date Tip Oliver DO [address] [place] [address] PCP - General Family Medicine 07/19/20 documented as of this encounter
--- OUTSIDE RECORDS SUMMARY | 2023-11-06 23:25 | External Medical Summary | Summary of Care ---
Author Name Unknown Organization [facility] Address [address] [facility] [place] [address] Phone [phone] Care Team Providers Care Rib Matcher And Fitter Name Role Phone Tip Oliver Primary Care Provider Reason for Visit * Reason Comments Allergy Return Encounter Details Date Type Department Care Team (Late st Contact Info) Description 2023 1:30 PM EDT Office Visit Allergy/Immunology [facility] [place] [address] [facility] [place] [address] Enrique Mcpherson MD [address] [place] [address] Rhinitis, nonallergic*; PND (post-nasal drip); Shellfish allergy Allergies Active Allergy Reactions Criticality Noted Date Comments Povidone Iodine 08/21/2021 Iodides Rash Medium 12/13/1998 Allergy to Betadine- Iodinated Contrast Media Itching 05/31/2018 Iodine Itching 04/06/2012 Amlodipine Besylate Edema Other High 08/12/2013 Severe edema of feet and lower legs Shellfish-Derived Products Rash High 2 documented as of this encounter (statuses as of 2023) Medications Medication Sig Dispensed Refills Start Date [...] use: lifetime. 300 Strip 3 01/04/2013 Active [place]-3 Fatty Acids (FISH OIL) 1360 MG CAPS [...] QWEEK,Indications: on fridays, Reported on 12/11/2022 Ipratropium [place] 0.03 % Nasal Solution (Atrovent) Administer 2 [...] as of this encounter (statuses as of 2023) Active Problems Problem Noted Date Diagnosed Date [...] enlargement 01/20/2018 REANNA on CPAP 02/08/2014 Overview: [employer]. Fax is [phone] Phone no is [phone] Labile hypertension 12/26/2011 Type 2 diabetes mellitus [...] as of this encounter (statuses as of 2023) Resolved Problems Problem Noted Date Diagnosed Date [...] as of this encounter (statuses as of 2023) Immunizations Name Administration Dates Next Due COVID-19 mRNA, LNP-s, No Pre serve, 2-Dose Series ([employer]) 02/11/2021,06/15/2020,05/19/2020 COVID-19, MRNA-LNP, 23-24, P F, 30 MCG/0.3 mL, 12 YRS AND ABOVE, IM [facility] 02/12/2023 Covid-19, Mrna, Lnp-s, Pf, B ivalent, 30 Mcg, IM, 12 yrs and above ([employer]) 01/10/2022 H1N1 2009 Influenza, IM 04/30/2009 Pneumococcal [...] Sign Reading Time Taken Comments Blood Pressure 132/78 2023 1:10 PM EDT Pulse 95 2023 1:10 PM EDT Temperature - - Respiratory Rate 16 2023 1:10 PM EDT Oxygen Saturation 98% 2023 1:10 PM EDT Inhaled Oxygen Concentration - - Weight 100.2 kg (221 lb) 2023 1:10 PM EDT Height - - Body Mass Index 31.71 09/01/2023 2:40 PM EDT documented in this encounter Patient Instructions * Patient Instructions* Enrique Mcpherson MD - 2023 1:17 PM EDT Nonallergic Trigger Avoidance Measures: Do not smoke, no smoking allowed in house or vehicles; avoid wood, coal burning stoves , and kerosene heaters; avoid strong smelling perfumes and perfumed cosmetics; do not use incense, potpourri, or scented candles, air fresheners in the home; avoid chemicalodors and weather changes (abrupt changes in temperature and humidity). If unavoidable, use a HEPA air-cleaning device. documented in this encounter Progress Notes * Enrique Mcpherson MD - 2023 1:17 PM EDT SUBJECTIVE: Yisel Moralez is here today for follow-up of his nonallergic rhinitis, postnasal drip and shellfish allergy. Overall he reports that he has been doing fairly well. He notes that he has been on his regimen of Flonase in addition to ipratropium. He does use normal saline sinus rinses prior to using the nasal sprays in the morning. He generally takes the ipratropium nasal spray 3 times daily and this does provide significant relief in regards to his previous symptoms of ongoing postnasal drip. The patient does have a history of gastroesophageal reflux disease which also contributes to his symptoms. He does take Prilosec in addition to Pepcid on a regular basis. He is due to have a hip replacement in the upcoming weeks. Due to a history of generalized itch without evidence of a rash or hives with shellfish ingestion, he does avoid shellfish in general. This has occurred on several occasions. There has been no accidental ingestion since last visit. Past Medical History: Diagnosis Date Aortic root [...] A1c goal of less than 7.0% (HCC) 08/20/2010 ICD-10 update of inactive term Past Surgical History: Procedure Laterality Date COLONOSCOPY W/ BIOPSY (RECTUM) 10/20/08 done adenomatous/repeat colonoscopy in 5 yrs COLONOSCOPY, DIAGNOSTIC (RECTUM) , 10/27 next 10/30 COLONOSCOPY, DIAGNOSTIC (RECTUM) 11/07/2013 adenomatous polyps, diverticulosis, repeat 5 yrs/COLONOSCOPY FLEXIBLE PROXIMAL DIAGNOSTIC performedby Mitchell Waters MD at ENDOSCOPY [facility] COLONOSCOPY, DIAGNOSTIC (RECTUM) 02/09/2018 adenomatous polyps, repeat 3 yrs/COLONOSCOPY FLEXIBLE PROXIMAL DIAGNOSTIC performed by Jeffrey Jaramillo MD at ENDOSCOPY [facility] COLONOSCOPY, DIAGNOSTIC (RECTUM) 03/19/2021 patent end to side ileo-colonic anastomosis/mulitple polyps/diverticulosis sigmoid colon/biopsies show adenomatous polyps/recall 5 years/COLONOSCOPY FLEXIBLE PROXIMAL DIAGNOSTIC performed by Jeffrey Anderson MD at ENDOSCOPY [facility] COLONOSCOPY, DIAGNOSTIC (RECTUM) 12/15/2022 tubular adenoma polyp / COLONOSCOPY FLEXIBLE PROXIMAL DIAGNOSTIC performed by Riky Daniels MD at ENDOSCOPY [facility] COLONOSCOPY, FLEX, W/ ENDOSCOPIC MUCOSAL RESECTION 03/17/2023 biopsies show inflammatory fibroid polyp with overlying reactive, hyperplastic changes/repeat 1 year/COLONOSCOPY, FLEXIBLE; WITH ENDOSCOPIC MUCOSAL RESECTION performed by Jose Miguel Barriga MD at ENDOSCOPY [facility] COLONOSCOPY, GI REFERRAL OP 10/01/2005 tubular adenoma and hyperplastic polyps--repeat 3 years DENTAL SURGERY PROCEDURE [facility] Dental Surgery Procedure EGD, FLEXIBLE, DIAGNOSTIC 02/09/2018 normal/ESOPHAGOGASTRODUODENOSCOPY (EGD), FLEXIBLE, TRANSORAL, DIAGNOSTIC performed by Jeffrey Jaramillo MD at ENDOSCOPY [facility] EGD, FLEXIBLE, DIAGNOSTIC 09/11/2021 Multiple benign gastric polyps / ESOPHAGOGASTRODUODENOSCOPY (EGD), FLEXIBLE, TRANSORAL, DIAGNOSTIC performed by Jeffrey Jaramillo MD at ENDOSCOPY [facility] EGD, FLEXIBLE, DIAGNOSTIC 12/15/2022 normal / ESOPHAGOGASTRODUODENOSCOPY (EGD), FLEXIBLE, TRANSORAL, DIAGNOSTIC performed by Riky Daniels MD at ENDOSCOPY [facility] EXERCISE ECHO 01/2003 no ischemic changes. Suggestion of mitral valve prolapse. INJECT DX/THER SUBSTANCE INTERLAMINAR LUMBAR/SACRAL W IMAGE GUIDE 05/07/2017 INJECTION SPINE LUMBAR OR SACRAL performed by [place] Maryam Sebastian, DO at OR [facility] INJECT DX/THER SUBSTANCE INTERLAMINAR LUMBAR/SACRAL W IMAGE GUIDE 07/30/2017 INJECTION SPINE LUMBAR OR SACRAL performed by [place] Maryam Sebastian, DO at OR [facility] INJECT DX/THER SUBSTANCE INTERLAMINAR LUMBAR/SACRAL W IMAGE GUIDE 01/21/2018 INJECTION SPINE LUMBAR OR SACRAL performed by [place] Maryam Sebastian, DO at OR [facility] INSERT HEART ELECTRODE, DUAL CHAMBR 06/13/2020 PARTIAL COLECTOMY W/ANASTOMOSIS 03/1998 Colectomy Partial- right REMOVAL OF KIDNEY 1965 right REMOVE TONSILS & ADENOIDS, UNDER 12 Tonsillectomy/Adenoids,<12 Y/O REPAIR BICEPS TENDON RUPTURE 1995 right REPAIR RUPTURED ROTATOR CUFF, ACUTE 01/1996 left REPAIR RUPTURED ROTATOR CUFF, ACUTE 2001 right SACROILIAC JOINT INJECT W/GUIDANCE 02/02/2020 INJECTION SACROILIAC JOINT performed by Gallo Sebastian DO at OR [facility] SACROILIAC JOINT INJECT W/GUIDANCE 11/12/2020 INJECTION SACROILIAC JOINT performed by [place] Sebastian, at OR [facility] Current Outpatient Medications Medication Sig Dispense Refill ASPIRIN 81 MG PO TABS Take by mouth at bedtime. [place]-3 Fatty Acids (FISH OIL) 1360 MG CAPS Take by mouth. Multiple Vitamins-Minerals (DAILY MULTIVITAMIN) CAPS Take by mouth. Wheat Dextrin (BENEFIBER) powder Take by mouth daily. Acetaminophen 325 MG Oral Tablet (Tylenol) Take 2 Tablets by mouth every 6 hours as needed for Pain, Mild or Pain, Moderate. PreserVision AREDS 2 Oral Capsule Take 1 Capsule by mouth every evening. Vitamin D-3 25 MCG (1000 UT) Oral Capsule Take 1 Capsule by mouth in the morning. Slow Fe 142 (45 Fe) MG Oral Tablet Extended Release (Ferrous Sulfate ER) Take by mouth. Ozempic (2 MG/DOSE) 8 MG/3ML Subcutaneous Solution Pen-injector (Semaglutide (2 MG/DOSE)) Inject 0.75 mL under the skin once a week. (Patient taking differently: Inject 2 mg under the skin once a week.) 3 mL 5 Ipratropium [place] 0.03 % Nasal Solution (Atrovent) Administer 2 Sprays into nostril in the morning and 2 Sprays at noon and 2 Sprays before bedtime. 30 mL 6 Carvedilol 25 MG Oral Tablet (Coreg) TAKE 1 TABLET BY MOUTH EVERY MORNING AND TAKE 1 TABLET BEFORE BEDTIME 180 Tablet 3 Tamsulosin HCl 0.4 MG Oral Capsule (Flomax) TAKE 1 CAPSULE BY MOUTH EVERY MORNING (Patient taking differently: No sig reported) 90 Capsule 3 Furosemide 40 MG Oral Tablet (Lasix) Take 1 Tablet by mouth in the morning. 90 Tablet 3 Levothyroxine Sodium 88 MCG Oral Tablet (Levoxyl) Take 1 Tablet by mouth daily first thing in the morning. (at least 30 min prior to breakfast or other meds) 90 Tablet 3 Triamcinolone Acetonide 0.1 % External Ointment (Aristocort) Apply topically to affected area 2 times a day. To affected area of the ear. 80 g 5 Famotidine 20 MG Oral Tablet (Pepcid) TAKE 1 TABLET BY MOUTH EVERY MORNING 90 Tablet 3 Verapamil HCl ER 180 MG Oral Tablet Extended Release (Isoptin SR) Take 1 Tablet by mouth in the morning. 90 Tablet 3 Losartan Potassium 50 MG Oral Tablet (Cozaar) Take 1 Tablet by mouth in the morning and 1 Tablet before bedtime. 180 Tablet 3 metFORMIN HCl 1000 MG Oral Tablet (Glucophage) Take 1 Tablet by mouth 2 times a day with morning and evening meals. 180 Tablet 3 Fluticasone Propionate 50 MCG/ACT Nasal Suspension (Flonase) INSTILL 2 SPRAYS IN EACH NOSTRIL EVERYDAY 48 mL 1 Omeprazole 20 MG Oral Capsule Delayed Release (PriLOSEC) Take 1 Capsule by mouth in the morning and1 Capsule in the evening. 180 Capsule 3 oxyBUTYnin Chloride ER 10 MG Oral Tablet Extended Release 24 Hour Take 1 Tablet by mouth in the morning. 30 Tablet 6 valACYclovir HCl 500 MG Oral Tablet (Valtrex) TAKE 1 TABLET BY MOUTH EVERY DAY 90 Tablet 1 Potassium Chloride ER 20 MEQ Oral Tablet Extended Release Take 1 Tablet by mouth in the morning. 90Tablet 3 Atorvastatin Calcium 40 MG Oral Tablet (Lipitor) Take 1 Tablet by mouth at bedtime. In the morning.90 Tablet 3 FREESTYLE LANCETS MISC use for testing up to 2 times a day. dx 250.00. estimated use: lifetime. 3 Box 3 FREESTYLE TEST STRP use for testing up to 2 times a day. dx 250.00. estimated use: lifetime. 300Strip 3 Insulin Pen Needle (BD PEN NEEDLE MARISA U/F) 32G X 4 MM Use once daily 100 Each 3 Tadalafil 5 MG Oral Tablet (Cialis) TAKE 1 TABLET BY MOUTH EVERY DAY NEEDED FOR ERECTILE DYSFUNCTION 30 Tablet 3 No current facility-administered medications for this visit. Review of patient's allergies indicates: Allergen Reactions Norvasc [Amlodipine Besylate] Edema Other Severe edema of feet and lower legs Shellfish-Derived Products Rash Iodides Rash Allergy to Betadine- Betadine [Povidone Iodine] Iodinated Contrast Media Itching Iodine Itching Family History Problem Relation Name Age of Onset Cancer Mother colon cancer at 56yo Cancer Father lung cancer at 74 yo Stroke Grandfather (Maternal) Depression Son Diabetes Aunt (Unspecified) Cancer Aunt (Unspecified) Cancer Aunt (Unspecified) No family history of allergic disease, asthma, or urticaria/angioedema. Social History Tobacco Use Smoking status: Former Current packs/day: 0.00 Average packs/day: 0.5 packs/day for 48.0 years (24.0 ttl pk-yrs) Types: Cigarettes Start date: 04/28/1961 Quit date: 04/28/2009 Years since quittin.3 Smokeless tobacco: Former Types: Snuff Quit date: 05/24/2009 Tobacco comments: Passive smoke exposure from son who lives with him Vaping Use Vaping status: Never Used Substance Use Topics Alcohol use: Yes Comment: very occasional-2 beers every couple of months Drug use: No Environment/Occupation/Activities of Daily Living: He is living in a 1 story mobile home. Oil forced air heat and central air conditioning. No underlying basement. Indoor pets include 1 dog. Bedroom is carpeted. 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 BP 132/78 (BP Site: Left Arm, BP Position: Sitting) | Pulse 95 | Resp 16 | Wt 100.2 kg (221 lb) | SpO2 98% | BMI 31.71 kg/m | BSA 2.22 m PHYSICAL EXAM: No Acute Distress: Throat clearing noted Conjunctiva: Normal TM's: Clear Nose: Pale mucosa, Mild inferior turbinate edema, no polyps, no mucopus Oropharynx: Mild erythema and cobblestoning, no lesions or exudates. Neck: No significant adenopathy Lungs: Clear to A&P, no wheezes Cor: RRR, no murmur Skin: No lesions atopic dermatitis; no urticaria, angioedema OBJECTIVE DATA: Component Latest Ref Rng & Units 08/21/2021September Grass IgE <0.35 kU/L <0.20 Justin Grass IgE <0.35 kU/L <0.20 Common Ragweed IgE <0.35 kU/L <0.20 Pigweed IgE <0.35 kU/L <0.20 [place] IgE <0.35 kU/L <0.20 Elm IgE <0.35 kU/L <0.20 Mite-Farinae IgE <0.35 kU/L <0.20 Mite-Pteronyssinus IgE <0.35 kU/L <0.20 Alternaria IgE <0.35 kU/L <0.20 Cat Dander IgE <0.35 kU/L <0.20 Dog Epithelium IgE <0.35 kU/L <0.20 Dog Dander IgE <0.35 kU/L <0.20 Cladosporium IgE <0.35 kU/L <0.20 Bed[place]'s Quarters IgE <0.35 kU/L <0.20 Blue Mussel IgE <0.35 kU/L <0.20 Clam IgE <0.35 kU/L <0.20 Crab IgE <0.35 kU/L <0.20 Lobster IgE <0.35 kU/L <0.20 Shrimp IgE <0.35 kU/L <0.20 Oyster IgE <0.35 kU/L <0.20 IgE 0.0 - 87.0 kU/L 4.8 Aspergillus IgE <0.35 kU/L <0.20 Birch IgE <0.35 kU/L <0.20 Penicillium Notatum IgE <0.35 kU/L <0.20 Allergy skin tests could not be done date of initial appointment because of antihistamine use within the prior 24 hours. ASSESSMENT: ICD-10-CM 1. Rhinitis, nonallergic J31.0 2. PND (post-nasal drip) R09.82 3. Shellfish allergy Z91.013 PLAN: Avoidance measures regarding nonallergic triggers should be continued. We did review the various triggers of nonallergic rhinitis and this includes drastic changes in the barometric pressure, drasticchanges in temperature, and respiratory irritants such as strong odors, perfumes, colognes, scentedproducts, pollution, exhaust fumes, and smoke. With his history of ongoing postnasal drip, we do recommend that he continue with Flonase 2 sprays each nostril daily in addition to ipratropium nasal spray 2 sprays each nostril up to 3 times daily.He finds that this combination has been of great benefit to him. He also uses normal saline sinus rinses prior to the nasal sprays each morning. Finally he uses a air purifier with HEPA filter withinhis home. For his gastroesophageal reflux disease, he will continue with Pepcid in addition to Prilosec. Thishas been controlling his symptoms as well. He reports a history of itching in general and moisturization of the skin has been helpful. He alsoreports itching after shellfish ingestion. Serum IgE determinations to shellfish were negative but he would like to continue to avoid shellfish for now. If he does develop any itching he will take Benadryl immediately. If he has any life-threatening symptoms he will proceed immediately to the nearest emergency room. Thank you very much for allowing myself to participate in the care of your patient. Please do not hesitate to contact our office should you have any questions or concerns. Enrique Mcpherson MD Allergy and Immunology [facility] I spent a total of 30-39 minutes (exact time 31 mins) on the date of service in preparation, delivery, and documentation of the care provided to Ann Joseph excluding any time spent in the performance of separately billed services. (This note was completed using the dictation program Fluency Direct. As such, there may be misspellings, word substitutions, or other variations that should not change the essence of the clinical content of this encounter note.If there is need for further clarification, please direct questions to the provider listed above.) documented in this encounter Nursing Notes * Beatriz Lawrence LPN - 2023 1:04 PM EDT The pt has been properly identified by confirmation of name and date of . Pt here for return visit. Pt voices no concerns. documented in this encounter Plan of Treatment Upcoming Encounters Date Type Department Care Team (Late st Contact Info) Description 09/25/2023 1:00 PM EDT Office Visit Orthopaedics [facility] [address] [address] Gigi Phillips MD [address] [address] 10/02/2023 10:15 AM EDT Imaging Radiology [facility] 1st Floor, [place] [address] [address] 10/08/2023 2:30 PM EDT Office Visit Orthopaedics [facility] [address] [place] [address] Bennie Law DO [address] [address] 10/15/2023 10:00 AM EDT Cardiac Studies Cardiology, [facility] [address] [place] [address] Heavenly Martin [facility] [address] [place] [address] 12/17/2023 1:00 PM EDT Office Visit Family Practice [facility] [address] [place] [address] Tip [place] DO [address] [facility] [place] [address] 08/23/2024 11:30 AM EDT Office Visit Urology, [facility] [address] [facility] [place] [address] Anthony Foster MD [address] [place] [address] [place] [address] 09/13/2024 1:00 PM EDT Office Visit Allergy/Immunology [facility] [address] [facility] [place] [address] Keiry Schmitt PA-C [address] [facility] [place] [address] Scheduled Procedures Name Priority Associated Diagnoses Date/Ti [...] as of this encounter Visit Diagnoses Diagnosis Rhinitis, nonallergic- Primary Chronic rhinitis PND (post-nasal drip) Postnasal drip Shellfish allergy Allergy to seafood documented in this encounter Care Teams Rib Matcher And Fitter Relationship Specialty Start Date End Date Tip Oliver DO [address] [place] [address] PCP - General Family Medicine 07/19/20 documented as of this encounter"
--- OUTSIDE RECORDS SUMMARY | 2023-11-06 23:25 | External Medical Summary | Summary of Care ---
Author Name Unknown Organization [facility] Address [address] [facility] [place] [address] Phone [phone] Care Team Providers Care Former Hand Name Role Phone Tip [place] Primary Care [...] use: lifetime. 300 Strip 3 01/04/2013 Active [place]-3 Fatty Acids (FISH OIL) 1360 MG CAPS [...] QWEEK,Indications: on fridays, Reported on 12/11/2022 Ipratropium [place] 0.03 % Nasal Solution (Atrovent) Administer 2 [...] enlargement 01/20/2018 REANNA on CPAP 02/08/2014 Overview: [employer]. Fax is [phone] Phone no is [phone] Labile hypertension 12/26/2011 Type 2 diabetes mellitus [...] mRNA, LNP-s, No Pre serve, 2-Dose Series ([employer]) 02/11/2021,06/15/2020,05/19/2020 COVID-19, MRNA-LNP, 23-24, P F, 30 MCG/0.3 mL, 12 YRS AND ABOVE, IM ([facility]) 02/12/2023 Covid-19, Mrna, Lnp-s, Pf, [...] State [place] [address] [place] [address] Enrique Mcpherson MD [address] [place] [address] 09/25/2023 1:00 PM EDT Office Visit Orthopaedics [facility] [address] [place] [address] Gigi Phillips MD [address] [place] [address] 10/02/2023 10:15 AM EDT Imaging Radiology [facility] 1st [facility] [address] [place] [address] 10/08/2023 2:30 PM EDT Office Visit Orthopaedics [facility] [address] [place] [address] Bnenie Law, DO [address] [place] [address] 10/15/2023 10:00 AM EDT Cardiac Studies Cardiology, [facility] [address] [place] [address] [facility] [address] [place] [address] 12/17/2023 1:00 PM EDT Office Visit Family Practice [facility] [address] [place] [address] Tip Oliver, DO [address] [place] [address] 08/23/2024 11:30 AM EDT Office Visit Urology, [facility] [address] [place] [address] Anthony Foster MD [address] [place] [address] [place] [address] Scheduled Procedures Name Priority Associated Diagnoses Date/Ti [...] filedocumented as of this encounter Care Teams Former Hand Relationship Specialty Start Date End Date Tip [place] DO [address] [place] [address] PCP - General Family Medicine 07/19/20 documented as of this encounter
--- OUTSIDE RECORDS SUMMARY | 2023-11-06 23:25 | External Medical Summary | Summary of Care ---
Author Name Unknown Organization [facility] Address [address] [facility] [place] [address] Phone [phone] Care Team Providers Care Wastewater Treatment Plant Instructor Name Role Phone Tip Oliver Primary Care Provider Reason for Visit * Reason Onset Date Comments Medication Refill 10/08/2023 Encounter Details Date Type Department Care Team (Late st Contact Info) Description 10/08/2023 Refill Cardiology, [facility] [address] [place] [address] Stormy Chan CRNP [address] [place] [address] SVT (supraventricular tachycardia) ([facility]) Allergies Active Allergy Reactions Criticality Noted Date Comments Povidone Iodine 08/21/2021 Iodides Rash Medium 12/13/1998 Allergy to Betadine- Iodinated Contrast Media Itching 05/31/2018 Iodine Itching 04/06/2012 Amlodipine Besylate Edema Other High 08/12/2013 Severe edema of feet and lower legs Shellfish-Derived Products Rash High 2 documented as of this encounter (statuses as of 10/12/2023) Medications Medication Sig Dispensed Refills Start Date [...] use: lifetime. 300 Strip 3 3 Active [place]-3 Fatty Acids (FISH OIL) 1360 MG CAPS [...] QWEEK,Indications: on fridays, Reported on 12/11/2022 Ipratropium [place] 0.03 % Nasal Solution (Atrovent) Administer 2 Sprays into nostril in the morning and 2 Sprays at noon and 2 Sprays before bedtime. 30 mL 6 3 Active Tamsulosin HCl 0.4 MG Oral Capsule (Flomax) TAKE 1 CAPSULE BY MOUTH EVERY MORNING 90 Capsule 3 3 Active Additional Information Patient taking differently: Indications: [...] the evening. 180 Tablet 3 4 Active Carvedilol 25 MG Oral Tablet (Coreg)Indications:S VT (supraventricular tachycardia) (HCC) TAKE 1 TABLET BY MOUTH EVERY MORNING AND TAKE 1 TABLET BEFORE BEDTIME 180 Tablet 3 3 10/08/19 24 Discontinu ed(Refill) documented as of this encounter (statuses as of 10/12/2023) Active Problems Problem Noted Date Diagnosed Date [...] enlargement 01/20/2018 REANNA on CPAP 02/08/2014 Overview: Bench. Fax is [phone] Phone no is [phone] Labile hypertension 12/26/2011 Type 2 diabetes mellitus [...] as of this encounter (statuses as of 10/12/2023) Resolved Problems Problem Noted Date Diagnosed Date [...] as of this encounter (statuses as of 10/12/2023) Immunizations Name Administration Dates Next Due COVID-19 mRNA, LNP-s, No Pre serve, 2-Dose Series ([employer]) 02/11/2021,06/15/2020,05/19/2020 COVID-19, MRNA-LNP, 23-24, P F, 30 MCG/0.3 mL, 12 YRS AND ABOVE, IM ([employer]-Comirnaty) 02/12/2023 Covid-19, Mrna, Lnp-s, Pf, B ivalent, [...] encounter Miscellaneous Notes * Telephone Encounter - Komal Miranda PA-C - 10/08/2023 12:58 PM EDT Refills sent. Last office visit in November [address] Mcnair. Will be due for yearly visit soon. Please arrange * Telephone Encounter - Komal Miranda PA-C - 10/08/2023 12:58 PM EDT Signed Prescriptions: Disp Refills Carvedilol 25 MG Oral Tablet (Coreg) 180 Ta*3 Sig: Take 1 Tablet by mouth in the morning and 1 Tablet in the evening. Authorizing Provider: KOMAL MIRANDA * Telephone Encounter - Pradeep Lala RN - 10/08/2023 11:02 AM EDT Pending Prescriptions: Disp Refills Carvedilol 25 MG Oral Tablet (Coreg) 180 Ta*3 Sig: Take 1 Tablet by mouth in the morning and 1 Tablet in the evening. Last Visit: 12/17/2022 (in office), 08/15/2019 (telemedicine) Next Visit: Visit date not found Last medication order date: 10/29/2022 Have you choosen a preferred pharm?? yes Patient Active Problem List Diagnosis Esophageal reflux Allergic rhinitis ADVANCE DIRECTIVE INFORMATION S/p nephrectomy IMPOTENCE, ORGANIC ORIGN Type 2 diabetes mellitus with hemoglobin A1c goal of less than 7.0% (HCC) Dyslipidemia, goal LDL below 70 Labile hypertension REANNA on CPAP Aortic root enlargement (HCC) Ascending aorta dilatation (HCC) Nonobstructive atherosclerosis of coronary artery HTN, goal below 130/80 Hx of nonmelanoma skin cancer Balance problems Obesity, Class I, BMI 30.0-34.9 (see actual BMI) Iron deficiency anemia Persistent cough for 3 weeks or longer Hoarseness of voice COBIAN (dyspnea on exertion) SVT (supraventricular tachycardia) (HCC) COPD, group A, by GOLD 2017 classification (HCC) Hx of dysplastic nevus Tachy-tripp syndrome (HCC) Labs: Lab Results Component Value Date/Time CREATININE - [facility] 0.6 06/15/2023 02:19 PM CREATININE - [facility] 0.8 12/09/2019 11:55 AM CREATININE, 24-HOUR URINE 1.57 08/02/2021 10:06 AM CREATININE, RANDOM URINE - [facility] 83 06/15/2023 02:24 PM CREATININE, RANDOM URINE - [facility] 56 11/22/2016 11:17 AM Lab Results Component Value Date/Time POTASSIUM - [facility] 4.1 06/15/2023 02:19 PM POTASSIUM - [facility] 4.0 12/09/2019 11:55 AM [...] 1:00 PM EDT Office Visit Family Practice [facility] [address] [facility] [place] [address] Tip Oliver DO [address] [place] [address] 08/23/2024 11:30 AM EDT Office Visit Urology, [facility] [address] [facility] [place] [address] Anthony Foster MD [address] [place] [address] [place] [address] 09/13/2024 1:00 PM EDT Office Visit Allergy/Immunology [facility] [place] [address] [place] [address] Keiry Schmitt PA-C [address] [place] [address] Scheduled Procedures Name Priority Associated Diagnoses Date/Ti me ROBOTIC ARTHROPLASTY TOTAL HIP Primary osteoarthritis of right hip COLONOSCOPY FLEXIBLE PROXIMA L DIAGNOSTIC Recall History of colonic polyps Health Maintenance Due Date Last Done Comments COVID-19 Vaccine (2022- season) 2023 02/12/2023, 01/10/2022, 02/11/2021, Additional history [...] 08/21/2022, Additional history exists TSH 06/15/2024 06/15/2023, 12/11/2021, 02/20/2022, Additional history exists Diabetic Eye Exam 07/30/2024 07/31/2023, , 07/18/2022, Additional history exists DTaP,Tdap,and Td Vaccines (3 - Td or Tdap) 02/01/2028 01/31/2018 (Declined), 12/01/2007, 09/25/1997 Pneumococcal Vaccine: 65+ Years Completed 08/14/2015, 10/27/2013, 09/25/1997 Zoster Vaccines Completed 02/22/2019, 08/0 11/2018, 03/02/2012 Influenza Vaccine (FLU shot) Completed [...] as of this encounter Visit Diagnoses Diagnosis SVT (supraventricular tachycardia) (HCC) Other specified cardiac dysrhythmias documented in this encounter Care Teams Wastewater Treatment Plant Instructor Relationship Specialty Start Date End Date Tip Oliver DO [address] [place] [address] PCP - General Family Medicine 07/19/20 documented as of this encounter
--- OUTSIDE RECORDS SUMMARY | 2023-11-06 23:25 | External Medical Summary | Summary of Care ---
Author Name Unknown Organization [facility] Address [address] [facility] [place] [address] Phone [phone] Care Team Providers Care Spring Internship Name Role Phone Tip Oliver Primary Care [...] use: lifetime. 300 Strip 3 01/04/2013 Active [place]kom-3 Fatty Acids (FISH OIL) 1360 MG CAPS [...] QWEEK,Indications: on fridays, Reported on 12/11/2022 Ipratropium [place] 0.03 % Nasal Solution (Atrovent) Administer 2 [...] enlargement 01/20/2018 REANNA on CPAP 02/08/2014 Overview: [email or web address]. Fax is [phone] Phone no is [phone] Labile hypertension 12/26/2011 Type 2 diabetes mellitus [...] mRNA, LNP-s, No Pre serve, 2-Dose Series ([employer]) 02/11/2021,06/15/2020,05/19/2020 COVID-19, MRNA-LNP, 23-24, P F, 30 MCG/0.3 mL, 12 YRS AND ABOVE, IM ([facility]) 02/12/2023 Covid-19, Mrna, Lnp-s, Pf, B [...] State [place] [address] [place] [address] Enrique Mcpherson MD [address] [place] [address] 09/25/2023 1:00 PM EDT Office Visit Orthopaedics [facility] [address] [place] [address] Gigi Phillips MD [address] [place] [address] 10/02/2023 10:15 AM EDT Imaging Radiology [facility] 1st [facility] [address] [place] [address] 10/08/2023 2:30 PM EDT Office Visit Orthopaedics [facility] [address] [place] [address] Bennie Law, DO [address] [place] [address] 10/15/2023 10:00 AM EDT Cardiac Studies Cardiology, [facility] [address] [place] [address] [facility] [address] [place] [address] 12/17/2023 1:00 PM EDT Office Visit Family Practice [facility] [address] [place] [address] Tip Oliver, DO [address] [place] [address] 08/23/2024 11:30 AM EDT Office Visit Urology, [facility] [address] [place] [address] Anthony Foster MD [address] [place] [address] Scheduled Procedures Name Priority Associated Diagnoses Date/Ti [...] filedocumented as of this encounter Care Teams Spring Internship Relationship Specialty Start Date End Date Tip Oliver DO [address] [place] [address] PCP - General Family Medicine 07/19/20 documented as of this encounter
--- OUTSIDE RECORDS SUMMARY | 2023-11-06 23:25 | External Medical Summary | Summary of Care ---
Author Name Unknown Organization [facility] Address [address] [facility] [place] [address] Phone [phone] Care Team Providers Care Slot Editor Name Role Phone Tip Oliver Primary Care Provider Encounter Details Date Type Department Care Team (Late st Contact Info) Description 09/30/2023 Result Scan Unspecified Department Juan Miguel Mcnair DO [address] [place] [address] <No scans attached> Allergies Active Allergy Reactions Criticality Noted Date Comments Povidone Iodine 08/21/2021 Iodides Rash Medium 12/13/1998 Allergy to Betadine- Iodinated Contrast Media Itching 05/31/2018 Iodine Itching 04/06/2012 Amlodipine Besylate Edema Other High 08/12/2013 Severe edema of feet and lower legs Shellfish-Derived Products Rash High 2 documented as of this encounter (statuses as of 09/30/2023) Medications Medication Sig Dispensed Refills Start Date [...] use: lifetime. 300 Strip 3 01/04/2013 Active [place]-3 Fatty Acids (FISH OIL) 1360 MG CAPS [...] QWEEK,Indications: on fridays, Reported on 12/11/2022 Ipratropium [place] 0.03 % Nasal Solution (Atrovent) Administer 2 [...] as of this encounter (statuses as of 09/30/2023) Active Problems Problem Noted Date Diagnosed Date [...] enlargement 01/20/2018 REANNA on CPAP 02/08/2014 Overview: [employer]. Fax is [phone] Phone no is [phone] Labile hypertension 12/26/2011 Type 2 diabetes mellitus [...] as of this encounter (statuses as of 09/30/2023) Resolved Problems Problem Noted Date Diagnosed Date Resolved Date COPD, severity to be determined 10/25/2021 12/11/2022 Overview: Per COPD GOLD Classification Visit for wound check 06/30/20182018 Fatigue 11/06/2014 11/21/2016 Malaise and fatigue 10/31/2013 11/22/19 17 Other nonspecific abnormal c ardiovascular system function study 12/19/2011 11/21/2016 Contrast media allergy 12/19/201105/31 Edema 12/12/2011 11/21/2016 HTN, goal below 130/80 08/20/201012/03 History of colon polyps 10/20/2008 02/07/2018 Overview: adenomatous/repeat colonoscopy in 5 yrs Dyslipidemia, [...] as of this encounter (statuses as of 09/30/2023) Immunizations Name Administration Dates Next Due COVID-19 mRNA, LNP-s, No Pre serve, 2-Dose Series ([employer]) 02/11/2021,06/15/2020,05/19/2020 COVID-19, MRNA-LNP, 23-24, P F, 30 MCG/0.3 mL, 12 YRS AND ABOVE, IM ([employer]-Comirnat) 02/12/2023 Covid-19, Mrna, Lnp-s, Pf, B ivalent, 30 Mcg, IM, 12 yrs and above ([employer]) 01/10/2022 H1N1 2009 Influenza, IM 04/30/2009 Pneumococcal [...] Description 10/02/2023 10:15 AM EDT Imaging Radiology [facility] 1st [facility], [address] [place] [address] 10/08/2023 2:30 PM EDT Office Visit Orthopaedics [facility] [address] [facility] [place] [address] Bennie Law, DO [address] [place] [address] 12/17/2023 1:00 PM EDT Office Visit Family Practice [facility] [address] [place] [address] Tip Oliver, DO [address] [facility] [place] [address] 08/23/2024 11:30 AM EDT Office Visit Urology, [facility] [address] [facility] [place] [address] Anthony Foster MD [address] [place] [address] 09/13/2024 1:00 PM EDT Office Visit Allergy/Immunology [facility] [address] [facility] [place] [address] Keiry Schmitt PA-C [address] [facility] [place] [address] Scheduled Procedures Name Priority Associated Diagnoses Date/Ti [...] Not on filedocumented as of this encounter Procedures Procedure Name Priority Date/Time Associated Diagnosis Comments CARDIOLOGY SCANNED RESULT 09/30/2023 documented in this encounter Results * CARDIOLOGY SCANNED RESULT (09/30/2023) 09/30/2023 Juan Miguel Mcnair DO OTHER documented in this encounter Care Teams Slot Editor Relationship Specialty Start Date End Date Tip Oliver DO [address] [facility] [place] [address] PCP - General Family Medicine 07/19/20 documented as of this encounter
--- OUTSIDE RECORDS SUMMARY | 2023-11-06 23:26 | External Medical Summary | Summary of Care ---
Author Name Unknown Organization [facility] Address [address] [facility] [place] [address] Phone [phone] Care Team Providers Care Lamp Cleaner Street Light Name Role Phone Tip Oliver Primary Care Provider Encounter Details Date Type Department Care Team (Late st Contact Info) Description 09/05/2023 Patient Reported Data Patient Survey Ortho OBERD Allergies Active Allergy Reactions Criticality Noted Date Comments Povidone Iodine 08/21/2021 Iodides Rash Medium 12/13/1998 Allergy to Betadine- Iodinated Contrast Media Itching 05/31/2018 Iodine Itching 04/06/2012 Amlodipine Besylate Edema Other High 08/12/2013 Severe edema of feet and lower legs Shellfish-Derived Products Rash High 2 documented as of this encounter (statuses as of 09/05/2023) Medications Medication Sig Dispensed Refills Start Date [...] use: lifetime. 300 Strip 3 01/04/2013 Active [place]-3 Fatty Acids (FISH OIL) 1360 MG CAPS [...] QWEEK,Indications: on fridays, Reported on 12/11/2022 Ipratropium [place] 0.03 % Nasal Solution (Atrovent) Administer 2 [...] as of this encounter (statuses as of 09/05/2023) Active Problems Problem Noted Date Diagnosed Date [...] enlargement 01/20/2018 REANNA on CPAP 02/08/2014 Overview: Kasenna. Fax is [phone] Phone no is [phone] Labile hypertension 12/26/2011 Type 2 diabetes mellitus [...] as of this encounter (statuses as of 09/05/2023) Resolved Problems Problem Noted Date Diagnosed Date [...] as of this encounter (statuses as of 09/05/2023) Immunizations Name Administration Dates Next Due COVID-19 mRNA, LNP-s, No Pre serve, 2-Dose Series ([employer]) 02/11/2021,06/15/2020,05/19/2020 COVID-19, MRNA-LNP, 23-24, P F, 30 MCG/0.3 mL, 12 YRS AND ABOVE, IM ([employer]-Comirnat) 02/12/2023 Covid-19, Mrna, Lnp-s, Pf, B ivalent, [...] State [place] [address] [place] [address] Enrique Mcpherson MD [address] [place] [address] 10/02/2023 10:15 AM EDT Imaging Radiology [facility] 1st [facility] [address] [place] [address] 10/08/2023 2:30 PM EDT Office Visit Orthopaedics [facility] [address] [place] [address] Bennie Law, DO [address] [place] [address] 10/15/2023 10:00 AM EDT Cardiac Studies Cardiology, [facility] [address] [facility] [place] [address] [facility] [address] [place] [address] 12/17/2023 1:00 PM EDT Office Visit Family Practice [facility] [address] [facility] [place] [address] Tip Oliver, DO [address] [place] [address] 08/23/2024 11:30 AM EDT Office Visit Urology, [facility] [address] [facility] [place] [address] Anthony Foster MD 27 [facility] [address] [place] [address] Scheduled Procedures Name Priority Associated Diagnoses Date/Ti [...] filedocumented as of this encounter Care Teams Lamp Cleaner Street Light Relationship Specialty Start Date End Date Tip Oliver DO [address] [place] [address] PCP - General Family Medicine 07/19/20 documented as of this encounter
--- OUTSIDE RECORDS SUMMARY | 2023-11-06 23:26 | External Medical Summary | Summary of Care ---
Author Name Unknown Organization [facility] Address [address] [facility] [place] [address] Phone [phone] Care Team Providers Care Director Payer Name Role Phone Tip Oliver Primary Care [...] use: lifetime. 300 Strip 3 01/04/2013 Active [place]-3 Fatty Acids (FISH OIL) 1360 MG CAPS [...] QWEEK,Indications: on fridays, Reported on 12/11/2022 Ipratropium [place] 0.03 % Nasal Solution (Atrovent) Administer 2 [...] enlargement 01/20/2018 REANNA on CPAP 02/08/2014 Overview: [employer]. Fax is [phone] Phone no is [phone] Labile hypertension 12/26/2011 Type 2 diabetes mellitus [...] mRNA, LNP-s, No Pre serve, 2-Dose Series ([employer]) 02/11/2021,06/15/2020,05/19/2020 COVID-19, MRNA-LNP, 23-24, P F, 30 MCG/0.3 mL, 12 YRS AND ABOVE, IM ([facility]) 02/12/2023 Covid-19, Mrna, Lnp-s, Pf, B ivalent, [...] State [place] [address] [place] [address] Enrique Mcpherson MD [address] [place] [address] 09/28/2023 1:15 PM EDT Office Visit Orthopaedics [facility] [address] [place] [address] Gigi Phillips MD [address] [place] [address] 10/02/2023 10:15 AM EDT Imaging Radiology [facility] 1st [facility] [address] [place] [address] 10/08/2023 2:30 PM EDT Office Visit Orthopaedics [facility] [address] [place] [address] Bennie Law, DO [address] [place] [address] 10/15/2023 10:00 AM EDT Cardiac Studies Cardiology, [facility] [address] [place] [address] [facility] [address] [place] [address] 12/17/2023 1:00 PM EDT Office Visit Family Practice [facility] [address] [place] [address] Tip Oliver, DO [address] [place] [address] 08/23/2024 11:30 AM EDT Office Visit Urology, [facility] [address] [place] [address] Anthony Foster MD [address] [place] [address] Scheduled Procedures Name Priority Associated Diagnoses Date/Ti [...] filedocumented as of this encounter Care Teams Director Payer Relationship Specialty Start Date End Date Tip Oliver DO [address] [place] [address] PCP - General Family Medicine 07/19/20 documented as of this encounter
--- OUTSIDE RECORDS SUMMARY | 2023-11-06 23:26 | External Medical Summary | Summary of Care ---
Author Name Unknown Organization [facility] Address [address] [facility] [place] [address] Phone [phone] Care Team Providers Care District Manager Primary Care Sales Name Role Phone Tip Oliver Primary Care [...] use: lifetime. 300 Strip 3 01/04/2013 Active [place]-3 Fatty Acids (FISH OIL) 1360 MG CAPS [...] QWEEK,Indications: on fridays, Reported on 12/11/2022 Ipratropium [place] 0.03 % Nasal Solution (Atrovent) Administer 2 [...] enlargement 01/20/2018 REANNA on CPAP 02/08/2014 Overview: [employer]. Fax is [phone] Phone no is [phone] Labile hypertension 12/26/2011 Type 2 diabetes mellitus [...] mRNA, LNP-s, No Pre serve, 2-Dose Series ([employer]) 02/11/2021,06/15/2020,05/19/2020 COVID-19, MRNA-LNP, 23-24, P F, 30 MCG/0.3 mL, 12 YRS AND ABOVE, IM ([facility]) 02/12/2023 Covid-19, Mrna, Lnp-s, Pf, B [...] State [place] [address] [place] [address] Enrique Mcpherson MD [address] [place] [address] 09/25/2023 1:00 PM EDT Office Visit Orthopaedics [facility] [address] [place] [address] Gigi Phillips MD [address] [place] [address] 10/02/2023 10:15 AM EDT Imaging Radiology [facility] 1st [facility] [address] [place] [address] 10/08/2023 2:30 PM EDT Office Visit Orthopaedics [facility] [address] [place] [address] Bennie Law, DO [address] [place] [address] 10/15/2023 10:00 AM EDT Cardiac Studies Cardiology, [facility] [address] [place] [address] [facility] [address] [place] [address] 12/17/2023 1:00 PM EDT Office Visit Family Practice [facility] [address] [place] [address] Tip Oliver, DO [address] [place] [address] 08/23/2024 11:30 AM EDT Office Visit Urology, [facility] [address] [place] [address] Anthony Foster MD [address] [place] [address] Scheduled Procedures Name Priority Associated Diagnoses Date/Ti [...] filedocumented as of this encounter Care Teams District Manager Primary Care Sales Relationship Specialty Start Date End Date Tip Oliver DO [address] [place] [address] PCP - General Family Medicine 07/19/20 documented as of this encounter
--- OUTSIDE RECORDS SUMMARY | 2023-11-06 23:26 | External Medical Summary | Summary of Care ---
Author Name Unknown Organization [facility] Address [address] [facility] [place] [address] Phone [phone] Care Team Providers Care Dining Room Coordinator Name Role Phone Tip Oliver Primary Care [...] use: lifetime. 300 Strip 3 01/04/2013 Active Icard-3 Fatty Acids (FISH OIL) 1360 MG CAPS [...] QWEEK,Indications: on fridays, Reported on 12/11/2022 Ipratropium [place] 0.03 % Nasal Solution (Atrovent) Administer 2 [...] enlargement 01/20/2018 REANNA on CPAP 02/08/2014 Overview: [email or web address]. Fax is [phone] Phone no is [phone] Labile hypertension 12/26/2011 Type 2 diabetes mellitus [...] mRNA, LNP-s, No Pre serve, 2-Dose Series ([employer]) 02/11/2021,06/15/2020,05/19/2020 COVID-19, MRNA-LNP, 23-24, P F, 30 MCG/0.3 mL, 12 YRS AND ABOVE, IM ([employer]NET [employer]-Comirnat) 02/12/2023 Covid-19, Mrna, Lnp-s, Pf, B ivalent, [...] State [place] [address] [place] [address] Enrique Mcpherson MD [address] [place] [address] 10/02/2023 10:15 AM EDT Imaging Radiology [facility] 1st [facility] [place] [address] [place] [address] 10/08/2023 2:30 PM EDT Office Visit Orthopaedics [facility] [address] [place] [address] Bennie Law, DO [address] [place] [address] 10/15/2023 10:00 AM EDT Cardiac Studies Cardiology, [facility] [address] [facility] [place] [address] [facility] [address] [place] [address] 12/17/2023 1:00 PM EDT Office Visit Family Practice [facility] [address] [facility] [place] [address] Tip Oliver, DO [address] [place] [address] 08/23/2024 11:30 AM EDT Office Visit Urology, [facility] [address] [facility] [place] [address] Anthony Foster MD 27 [facility] [address] [place] [address] Scheduled Procedures Name Priority Associated Diagnoses Date/Ti [...] filedocumented as of this encounter Care Teams Dining Room Coordinator Relationship Specialty Start Date End Date Tip Oliver DO [address] [place] [address] PCP - General Family Medicine 07/19/20 documented as of this encounter
--- OUTSIDE RECORDS SUMMARY | 2023-11-06 23:26 | External Medical Summary | Summary of Care ---
Author Name Unknown Organization [facility] Address [address] [facility] [place] [address] Phone [phone] Care Team Providers Care Mushroom Farmer Name Role Phone Tip Oliver Primary Care [...] use: lifetime. 300 Strip 3 01/04/2013 Active [place]-3 Fatty Acids (FISH OIL) 1360 MG CAPS [...] QWEEK,Indications: on fridays, Reported on 12/11/2022 Ipratropium [place] 0.03 % Nasal Solution (Atrovent) Administer [...] enlargement 01/20/2018 REANNA on CPAP 02/08/2014 Overview: [employer]. Fax is [phone] Phone no is [phone] Labile hypertension 12/26/2011 Type 2 diabetes mellitus [...] mRNA, LNP-s, No Pre serve, 2-Dose Series ([employer]) 02/11/2021,06/15/2020,05/19/2020 COVID-19, MRNA-LNP, 23-24, P F, 30 MCG/0.3 mL, 12 YRS AND ABOVE, IM ([employer]) 02/12/2023 Covid-19, Mrna, Lnp-s, Pf, B ivalent, [...] State [place] [address] [place] [address] Enrique Mcpherson MD [address] [place] [address] 10/02/2023 10:15 AM EDT Imaging Radiology [facility] 1st [facility] [place] [address] [place] [address] 10/08/2023 2:30 PM EDT Office Visit Orthopaedics [facility] [address] [place] [address] Bennie Law, DO [address] [place] [address] 10/15/2023 10:00 AM EDT Cardiac Studies Cardiology, [facility] [address] [facility] [place] [address] [facility] [address] [place] [address] 12/17/2023 1:00 PM EDT Office Visit Family Practice [facility] [address] [facility] [place] [address] Tip Oliver, DO [address] [place] [address] 08/23/2024 11:30 AM EDT Office Visit Urology, [facility] [address] [facility] [place] [address] Anthony Foster MD 27 [facility] [address] [place] [address] Scheduled Procedures Name Priority Associated Diagnoses Date/Ti [...] filedocumented as of this encounter Care Teams Mushroom Farmer Relationship Specialty Start Date End Date Tip Oliver DO [address] [address] PCP - General Family Medicine 07/19/20 documented as of this encounter
--- OUTSIDE RECORDS SUMMARY | 2023-11-06 23:26 | External Medical Summary | Summary of Care ---
Author Name Unknown Organization [facility] Address [address] [facility] [place] [address] Phone [phone] Care Team Providers Care Chief Of Internal Medicine Name Role Phone Tip Oliver Primary Care [...] use: lifetime. 300 Strip 3 01/04/2013 Active Star-3 Fatty Acids (FISH OIL) 1360 MG CAPS [...] QWEEK,Indications: on fridays, Reported on 12/11/2022 Ipratropium [place] 0.03 % Nasal Solution (Atrovent) Administer 2 [...] enlargement 01/20/2018 REANNA on CPAP 02/08/2014 Overview: [employer]. Fax is [phone] Phone no is [phone] Labile hypertension 12/26/2011 Type 2 diabetes mellitus [...] mRNA, LNP-s, No Pre serve, 2-Dose Series ([employer]) 02/11/2021,06/15/2020,05/19/2020 COVID-19, MRNA-LNP, 23-24, P F, 30 MCG/0.3 mL, 12 YRS AND ABOVE, IM ([facility]) 02/12/2023 Covid-19, Mrna, Lnp-s, Pf, B ivalent, [...] [place] [address] [place] [address] Enrique Mcpherson MD [address] [place] [address] 09/28/2023 1:15 PM EDT Office Visit Orthopaedics [facility] [address] [place] [address] Gigi Phillips MD [address] [place] [address] 10/02/2023 10:15 AM EDT Imaging Radiology [facility] 1st [facility] [place] [address] [place] [address] 10/08/2023 2:30 PM EDT Office Visit Orthopaedics [facility] [address] [place] [address] Bennie Law, DO [address] [place] [address] 10/15/2023 10:00 AM EDT Cardiac Studies Cardiology, [facility] [address] [place] [address] [facility] [address] [place] [address] 12/17/2023 1:00 PM EDT Office Visit Family Practice [facility] [address] [place] [address] Tip Oliver, DO [address] [place] [address] 08/23/2024 11:30 AM EDT Office Visit Urology, [facility] [address] [place] [address] Anthony Foster MD [address] [place] [address] [place] [address] Scheduled Procedures Name Priority Associated Diagnoses Date/Ti [...] filedocumented as of this encounter Care Teams Chief Of Internal Medicine Relationship Specialty Start Date End Date Tip Oliver DO [address] [place] [address] PCP - General Family Medicine 07/19/20 documented as of this encounter
--- OUTSIDE RECORDS SUMMARY | 2023-11-06 23:26 | External Medical Summary | Summary of Care ---
Author Name Unknown Organization [facility] Address [address] [facility] [place] [address] Phone [phone] Care Team Providers Care Boom Worker Name Role Phone Tip Oliver Primary Care [...] use: lifetime. 300 Strip 3 01/04/2013 Active Annabella-3 Fatty Acids (FISH OIL) 1360 MG CAPS [...] QWEEK,Indications: on fridays, Reported on 12/11/2022 Ipratropium [place] 0.03 % Nasal Solution (Atrovent) Administer 2 [...] enlargement 01/20/2018 REANNA on CPAP 02/08/2014 Overview: [employer]. Fax is [phone] Phone no is [phone] Labile hypertension 12/26/2011 Type 2 diabetes mellitus [...] mRNA, LNP-s, No Pre serve, 2-Dose Series ([employer]) 02/11/2021,06/15/2020,05/19/2020 COVID-19, MRNA-LNP, 23-24, P F, 30 MCG/0.3 mL, 12 YRS AND ABOVE, IM ([facility]) 02/12/2023 Covid-19, Mrna, Lnp-s, Pf, B ivalent, [...] State [place] [address] [place] [address] Enrique Mcpherson MD [address] [place] [address] 09/28/2023 1:15 PM EDT Office Visit Orthopaedics [facility] [address] [place] [address] Gigi Phillips MD [address] [place] [address] 10/02/2023 10:15 AM EDT Imaging Radiology [facility] 1st [facility] [place] [address] [place] [address] 10/08/2023 2:30 PM EDT Office Visit Orthopaedics [facility] [address] [place] [address] Bennie Law, DO [address] [place] [address] 10/15/2023 10:00 AM EDT Cardiac Studies Cardiology, [facility] [address] [place] [address] [facility] [address] [place] [address] 12/17/2023 1:00 PM EDT Office Visit Family Practice [facility] [address] [place] [address] Tip Oliver, DO [address] [place] [address] 08/23/2024 11:30 AM EDT Office Visit Urology, [facility] [address] [place] [address] Anthony Foster MD [address] [place] [address] [place] [address] Scheduled Procedures Name Priority Associated Diagnoses Date/Ti [...] filedocumented as of this encounter Care Teams Boom Worker Relationship Specialty Start Date End Date Tip Oliver DO [address] [place] [address] PCP - General Family Medicine 07/19/20 documented as of this encounter
--- OUTSIDE RECORDS SUMMARY | 2023-11-06 23:26 | External Medical Summary | Summary of Care ---
Author Name Unknown Organization [facility] Address [address] [facility] [place] [address] Phone [phone] Care Team Providers Care Customer Expert Name Role Phone Tip Oliver Primary Care [...] use: lifetime. 300 Strip 3 01/04/2013 Active [place]-3 Fatty Acids (FISH OIL) 1360 MG CAPS [...] QWEEK,Indications: on fridays, Reported on 12/11/2022 Ipratropium [place] 0.03 % Nasal Solution (Atrovent) Administer 2 [...] enlargement 01/20/2018 REANNA on CPAP 02/08/2014 Overview: [employer]. Fax is [phone] Phone no is [phone] Labile hypertension 12/26/2011 Type 2 diabetes mellitus [...] mRNA, LNP-s, No Pre serve, 2-Dose Series ([employer]) 02/11/2021,06/15/2020,05/19/2020 COVID-19, MRNA-LNP, 23-24, P F, 30 MCG/0.3 mL, 12 YRS AND ABOVE, IM ([employer]) 02/12/2023 Covid-19, Mrna, Lnp-s, Pf, B ivalent, [...] State [place] [address] [place] [address] Enrique Mcpherson MD [address] [place] [address] 10/02/2023 10:15 AM EDT Imaging Radiology [facility] 1st [facility] [place] [address] [place] [address] 10/08/2023 2:30 PM EDT Office Visit Orthopaedics [facility] [address] [place] [address] Bennie Law, DO [address] [place] [address] 10/15/2023 10:00 AM EDT Cardiac Studies Cardiology, [facility] [address] [facility] [place] [address] [facility] [address] [place] [address] 12/17/2023 1:00 PM EDT Office Visit Family Practice [facility] 132 [facility] [place] [address] Tip Oliver, DO [address] [place] [address] 08/23/2024 11:30 AM EDT Office Visit Urology, [facility] 132 [facility] [place] [address] Anthony Foster MD 27 [facility] [address] [place] [address] Scheduled Procedures Name Priority Associated Diagnoses Date/Ti [...] filedocumented as of this encounter Care Teams Customer Expert Relationship Specialty Start Date End Date Tip Oliver DO [address] [address] PCP - General Family Medicine 07/19/20 documented as of this encounter
--- OUTSIDE RECORDS SUMMARY | 2023-11-06 23:26 | External Medical Summary | Summary of Care ---
Author Name Unknown Organization [facility] Address [address] [facility] [place] [address] Phone [phone] Care Team Providers Care Trigonometry Teacher Name Role Phone Tip Oliver DO Primary Care Provider Reason for Visit * Reason Comments Carpal Tunnel Syndrome Left carpel tunne l release consult Encounter Details Date Type Department Care Team (Late st Contact Info) Description 09/01/2023 2:45 PM EDT Office Visit Orthopaedics [facility] [address] [place] [address] Gus Daly DO [address] [place] [address] Carpal tunnel syndrome of left wrist* Allergies Active Allergy Reactions Criticality Noted Date Comments Povidone Iodine 08/21/2021 Iodides Rash Medium 12/13/1998 Allergy to Betadine- Iodinated Contrast Media Itching 05/31/2018 Iodine Itching 04/06/2012 Amlodipine Besylate Edema Other High 08/12/2013 Severe edema of feet and lower legs Shellfish-Derived Products Rash High 2 documented as of this encounter (statuses as of 09/02/2023) Medications Medication Sig Dispensed Refills Start Date [...] use: lifetime. 300 Strip 3 01/04/2013 Active [place]-3 Fatty Acids (FISH OIL) 1360 MG CAPS [...] QWEEK,Indications: on fridays, Reported on 12/11/2022 Ipratropium [place] 0.03 % Nasal Solution (Atrovent) Administer [...] as of this encounter (statuses as of 09/02/2023) Active Problems Problem Noted Date Diagnosed Date [...] enlargement 01/20/2018 REANNA on CPAP 02/08/2014 Overview: [employer]. Fax is [phone] Phone no is [phone] Labile hypertension 12/26/2011 Type 2 diabetes mellitus [...] as of this encounter (statuses as of 09/02/2023) Resolved Problems Problem Noted Date Diagnosed Date [...] as of this encounter (statuses as of 09/02/2023) Immunizations Name Administration Dates Next Due COVID-19 mRNA, LNP-s, No Pre serve, 2-Dose Series ([employer]) 02/11/2021,06/15/2020,05/19/2020 COVID-19, MRNA-LNP, 23-24, P F, 30 [...] Sign Reading Time Taken Comments Blood Pressure - - Pulse - - Temperature - - Respiratory Rate - - Oxygen Saturation - - Inhaled Oxygen Concentration - - Weight 96.8 kg (213 lb 6.5 oz) 09/01/2023 2:40 P M EDT Height 177.8 cm (5' 10") 09/01/2023 2:40 PM EDT Body Mass Index 30.62 09/01/2023 2:40 PM EDT documented in this encounter Progress Notes * Gus Daly, DO - 09/02/2023 12:40 PM EDT Patient Name: Ann Joseph CHIEF COMPLAINT: Chief Complaint Patient presents with Carpal Tunnel Syndrome Left carpel tunnel release consult HISTORY OF PRESENT ILLNESS: Ann Joseph is a 77 year old male who presents to clinic today for follow up on his left carpal tunnel syndrome. Recall at his last appointment he was sent for EMG evaluation. He states since thattime he was had significant improvement in his symptoms. He reports that his thumb only occasionally gets some now and the symptoms in his 2nd and 3rd digit are barely noticeable them. Denies any new acute traumatic events to his left upper extremity. Past Medical History: Diagnosis Date Aortic root enlargement (HCC) 01/20/2018 Ascending aorta dilatation (HCC) 12/13/2018 Balance problems 10/18/2019 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 adenomatous/repeat colonoscopy in 5 yrs COVID-19 04/12/2020 Depressive disorder, not elsewhere classified 10/30/2000 Diabetes 1.5, managed as type 2 ([facility]) Diverticulosis of colon 10/01/2005 Dyslipidemia, goal LDL [...] PROXIMAL DIAGNOSTIC performedby Mitchell Waters MD at [facility] COLONOSCOPY, DIAGNOSTIC (RECTUM) 02/09/2018 adenomatous polyps, repeat 3 yrs/COLONOSCOPY FLEXIBLE PROXIMAL DIAGNOSTIC performed by Jeffrey Jaramillo MD at [facility] COLONOSCOPY, DIAGNOSTIC (RECTUM) 03/19/2021 patent end to side ileo-colonic anastomosis/mulitple polyps/diverticulosis sigmoid colon/biopsies show adenomatous polyps/recall 5 years/COLONOSCOPY FLEXIBLE PROXIMAL DIAGNOSTIC performed by Jeffrey Anderson MD at [facility] COLONOSCOPY, DIAGNOSTIC (RECTUM) 12/15/2022 tubular adenoma polyp / COLONOSCOPY FLEXIBLE PROXIMAL DIAGNOSTIC performed by Riky Daniels MD at [facility] COLONOSCOPY, FLEX, W/ ENDOSCOPIC MUCOSAL RESECTION 03/17/2023 biopsies show inflammatory fibroid polyp with overlying reactive, hyperplastic changes/repeat 1 year/COLONOSCOPY, FLEXIBLE; WITH ENDOSCOPIC MUCOSAL RESECTION performed by Jose Miguel Barriga MD at [facility] COLONOSCOPY, GI REFERRAL OP 10/01/2005 tubular adenoma and hyperplastic polyps--repeat 3 years DENTAL SURGERY PROCEDURE NEC Dental Surgery Procedure EGD, FLEXIBLE, DIAGNOSTIC 02/09/2018 normal/ESOPHAGOGASTRODUODENOSCOPY (EGD), FLEXIBLE, TRANSORAL, DIAGNOSTIC performed by Jeffrey Jaramillo MD at [facility] EGD, FLEXIBLE, DIAGNOSTIC 09/11/2021 Multiple benign gastric polyps / ESOPHAGOGASTRODUODENOSCOPY (EGD), FLEXIBLE, TRANSORAL, DIAGNOSTIC performed by Jeffrey Jaramillo MD at [facility] EGD, FLEXIBLE, DIAGNOSTIC 12/15/2022 normal / ESOPHAGOGASTRODUODENOSCOPY (EGD), FLEXIBLE, TRANSORAL, DIAGNOSTIC performed by Riky Daniels MD at [facility] EXERCISE ECHO 01/2003 no ischemic changes. Suggestion of mitral valve prolapse. INJECT DX/THER SUBSTANCE INTERLAMINAR LUMBAR/SACRAL W IMAGE GUIDE 05/07/2017 INJECTION SPINE LUMBAR OR SACRAL performed by Gallo Sebastian DO at OR [facility] INJECT DX/THER SUBSTANCE INTERLAMINAR LUMBAR/SACRAL W IMAGE GUIDE 07/30/2017 INJECTION SPINE LUMBAR OR SACRAL performed by Gallo Sebastian DO at OR [facility] INJECT DX/THER SUBSTANCE INTERLAMINAR LUMBAR/SACRAL W IMAGE GUIDE 01/21/2018 INJECTION SPINE LUMBAR OR SACRAL performed by Gallo Sebastian, at OR [facility] INSERT HEART ELECTRODE, DUAL CHAMBR 06/13/2020 PARTIAL COLECTOMY W/ANASTOMOSIS 03/1998 Colectomy Partial- right REMOVAL OF KIDNEY 1965 right REMOVE TONSILS & ADENOIDS, UNDER 12 Tonsillectomy/Adenoids,<12 Y/O REPAIR BICEPS TENDON RUPTURE 1995 right REPAIR RUPTURED ROTATOR CUFF, ACUTE 01/1996 left REPAIR RUPTURED ROTATOR CUFF, ACUTE 2001 right SACROILIAC JOINT INJECT W/GUIDANCE 02/02/2020 INJECTION SACROILIAC JOINT performed by Gallo Sebastian DO at OR [facility] SACROILIAC JOINT INJECT W/GUIDANCE 11/12/2020 INJECTION SACROILIAC JOINT performed by Gallo Sebastian, DO at OR [facility] Social History Socioeconomic History Marital status: Spouse name: Not on file Number of children: 2 Years of education: Not on file Highest education level: Not on file Occupational History 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 Family History Problem Relation Age of Onset Cancer Mother colon cancer at 56yo Cancer Father lung cancer at 74 yo Stroke Grandfather (Maternal) Depression Son Diabetes Aunt (Unspecified) Cancer Aunt (Unspecified) Cancer Aunt (Unspecified) Denies problems with anesthesia, history of easy bruising or excess bleeding Denies rheumatoid arthritis, lupus Review of patient's allergies indicates: Allergen Reactions Norvasc [Amlodipine Besylate] Edema Other Severe edema of feet and lower legs Shellfish-Derived Products Rash Iodides Rash Allergy to Betadine- Betadine [Povidone Iodine] Iodinated Contrast Media Itching Iodine Itching Medications: reviewed Review of systems Constitutional denies recent weight loss, fatigue, fever Eyes denies new blurred vision, double vision Ear/Nose/Throat denies sore throat, runny nose Cardiovascular denies chest pain, new foot swelling Respiratory denies shortness of breath or cough GI denies constipation, diarrhea, abdominal pain denies history of urinary frequency, dysuria, retention Musculoskeletal denies other joint pain except as reference above in history Psychiatric denies depression, substance abuse Integumentary denies new upper extremity rashes, itching Neuro denies other numbness tingling except reference above in history Except as listed above, all other systems were reviewed and documented as per intake PHYSICAL EXAM: Ht 1.778 m (5' 10") | Wt 96.8 kg (213 lb 6.5 oz) | BMI 30.62 kg/m | BSA 2.19 m Constitutional: Well developed, well nourished, in no acute distress Psychological: normal affect, mood HEENT: normocephalic, atraumatic, anicteric Neck: supple, midline trachea, normal ROM Respiratory: Normal effort, no respiratory distress, no cyanosis Cardiovascular: visible extremities are warm and well perfused Left Upper Extremity: Observation: No significant deformity Tenderness: None Neurovascular: Normal motor exam of the ulnar, radial and median nerves, fingers well perfused withnormal capillary refill. Only slight decreased but intact sensation in the 1st 3 digits a left-hand Swelling/effusions: Minimal swelling of the extremity. Forearm and hand compartments soft, no pain with passive motion of the fingers. Skin: intact, normal color and temperature With the exception of the area of injury, bilateral range of motion, muscle tone, muscle symmetry and coordination are unremarkable. Positive Durkan's Hand Exam: On gross inspection there is no discoloration of the hand. There is no trophic changes, open wounds, or previous scars. Compared to the contralateral hand there is no thenar or interossei atrophy. There is a normal resting cascade of the fingers. When F attempts to make a fist there is no angulation or asymmetry appreciated. 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 I personally reviewed the patient's imaging studies withthe patient during today's visit. Various treatment options were discussed. Patient again states that he is feeling improvement in his symptoms. He elects to continue to monitor for worsening or return of his symptoms that would be intense enough for him to wish to pursue operative intervention. Wediscussed various operative scenarios including doing this under just local due to transportation issues or potentially in [place] given his various medical comorbidities. Patient expressed understanding and was in agreement with today's treatment plan. There are no Patient Instructions on file for this visit. Gus Daly DO Orthopaedics [address] [address] Orthopedic Sports Medicine Surgery 09/01/23 This chart was completed in part utilizing [employer] Speech Voice Recognition Software. Grammatical errors, random word insertions, pronoun errors, and incomplete sentences are an occasional consequence of this system due to software limitations, ambient noise, and hardware issues. Any formal questions or concerns about the content, text, or information contained within the body of this dictation should be directly addressed to the provider for clarification. documented in this encounter Nursing Notes * Roberta Perez, [facility] - 09/01/2023 2:41 PM EDT Chief Complaint Patient presents with Carpal Tunnel Syndrome Left carpel tunnel release consult EMG 08/20/2023 XR 07/07/2023 Present today with self LEFT OR RIGHT: Right hand dominant Duration: chronic, 6-8 months Location: Left wrist, numbness; digits 1-3 Modifying factors: not sure Treatment to date: tried bracing in past Denies any previous injuries fractures surgeries to the Left wrist documented in this encounter Plan of Treatment Upcoming Encounters Date Type Department Care Team (Late st Contact Info) Description 2023 1:30 PM EDT Office [facility] [address] [place] [address] Enrique Mcpherson MD 200 [facility] [place] [address] 10/02/2023 10:15 AM EDT Imaging Radiology [facility]st [facility] [address] [place] [address] 10/08/2023 2:30 PM EDT Office Visit Orthopaedics [facility] [address] [place] [address] Bennie Law, DO [address] [place] [address] 10/15/2023 10:00 AM EDT Cardiac Studies Cardiology, [facility] [address] [place] [address] [facility] [address] [place] [address] 12/17/2023 1:00 PM EDT Office Visit Family Practice [facility] [address] [place] [address] Tip Oliver, DO [address] [place] [address] 08/23/2024 11:30 AM EDT Office Visit Urology, [facility] [address] [facility] [place] [address] Anthony Foster MD [address] [facility] [place] [address] [place] [address] Scheduled Procedures Name Priority Associated Diagnoses Date/Ti [...] 06/15/2023, 12/0 11/2021, 02/20/2022, Additional history exists DTaP,Tdap,and Td Vaccines (3 - Td or Tdap) 02/01/2028 01/31/2018 (Declined), 12/01/2007, 09/25/1997 Pneumococcal Vaccine: 65+ Years Completed 08/14/2015, 10/27/2013, 09/25/1997 *NEPHROLOGY REFERRAL DUE TO RESISTANT HTN Addressed 01/31/2018 (Not indicated) Overridden with the intention of not completing the topic Zoster Vaccines Completed 02/22/2019, 11/2018, 03/02/2012 Lung [...] as of this encounter Visit Diagnoses Diagnosis Carpal tunnel syndrome of left wrist- Primary Carpal tunnel syndrome documented in this encounter Care Teams Trigonometry Teacher Relationship Specialty Start Date End Date Tip Oliver DO [address] [place] [address] PCP - General Family Medicine 07/19/20 documented as of this encounter
--- OUTSIDE RECORDS SUMMARY | 2023-11-06 23:26 | External Medical Summary | Summary of Care ---
Author Name Unknown Organization [facility] Address [address] [facility] [place] [address] Phone [phone] Care Team Providers Care Clamp Truck Driver Name Role Phone Tip Oliver Primary Care [...] lifetime. 300 Strip 3 01/04/2013 Active [place]-3 Fatty Acids (FISH OIL) 1360 MG CAPS [...] QWEEK,Indications: on fridays, Reported on 12/11/2022 Ipratropium [place] 0.03 % Nasal Solution (Atrovent) Administer 2 [...] enlargement 01/20/2018 REANNA on CPAP 02/08/2014 Overview: [employer]. Fax is [phone] Phone no is [phone] Labile hypertension 12/26/2011 Type 2 diabetes mellitus [...] mRNA, LNP-s, No Pre serve, 2-Dose Series ([employer]) 02/11/2021,06/15/2020,05/19/2020 COVID-19, MRNA-LNP, 23-24, P F, 30 MCG/0.3 mL, 12 YRS AND ABOVE, IM ([employer]) 02/12/2023 Covid-19, Mrna, Lnp-s, Pf, B [...] [place] [address] [place] [address] Enrique Mcpherson MD [address] [place] [address] 09/28/2023 1:15 PM EDT Office Visit Orthopaedics [facility] [address] [place] [address] Gigi Phillips MD [address] [place] [address] 10/02/2023 10:15 AM EDT Imaging Radiology [facility] 1st [facility] [address] [place] [address] 10/08/2023 2:30 PM EDT Office Visit Orthopaedics [facility] [address] [place] [address] Bennie Law, DO [address] [place] [address] 10/15/2023 10:00 AM EDT Cardiac Studies Cardiology, [facility] [address] [place] [address] [facility] [address] [place] [address] 12/17/2023 1:00 PM EDT Office Visit Family Practice [facility] [address] [place] [address] Tip Oliver, DO [address] [place] [address] 08/23/2024 11:30 AM EDT Office Visit Urology, [facility] [address] [place] [address] Anthony Foster MD [address] [place] [address] Scheduled Procedures Name Priority Associated Diagnoses Date/Ti [...] filedocumented as of this encounter Care Teams Clamp Truck Driver Relationship Specialty Start Date End Date Tip Oliver DO [address] [place] [address] PCP - General Family Medicine 07/19/20 documented as of this encounter
--- OUTSIDE RECORDS SUMMARY | 2023-11-06 23:27 | External Medical Summary | Summary of Care ---
Author Name Unknown Organization [facility] Address [address] [facility] [place] [address] Phone [phone] Care Team Providers Care Toe Pounder Name Role Phone Tip Oliver Primary Care Provider Encounter Details Date Type Department Care Team (Late st Contact Info) Description 08/26/2023 Patient Reported Data Patient Survey Ortho OBERD Allergies Active Allergy Reactions Criticality Noted Date Comments Povidone Iodine 08/21/2021 Iodides Rash Medium 12/13/1998 Allergy to Betadine- Iodinated Contrast Media Itching 05/31/2018 Iodine Itching 04/06/2012 Amlodipine Besylate Edema Other High 08/12/2013 Severe edema of feet and lower legs Shellfish-Derived Products Rash High 2 documented as of this encounter (statuses as of 08/26/2023) Medications Medication Sig Dispensed Refills Start Date [...] use: lifetime. 300 Strip 3 01/04/2013 Active [place]-3 Fatty Acids (FISH OIL) 1360 MG CAPS [...] QWEEK,Indications: on fridays, Reported on 12/11/2022 Ipratropium [place] 0.03 % Nasal Solution (Atrovent) Administer 2 [...] as of this encounter (statuses as of 08/26/2023) Active Problems Problem Noted Date Diagnosed Date [...] enlargement 01/20/2018 REANNA on CPAP 02/08/2014 Overview: [email or web address]. Fax is [phone] Phone no is [phone] Labile hypertension 12/26/2011 Type 2 diabetes mellitus [...] as of this encounter (statuses as of 08/26/2023) Resolved Problems Problem Noted Date Diagnosed Date [...] as of this encounter (statuses as of 08/26/2023) Immunizations Name Administration Dates Next Due COVID-19 mRNA, LNP-s, No Pre serve, 2-Dose Series ([employer]) 02/11/2021,06/15/2020,05/19/2020 COVID-19, MRNA-LNP, 23-24, P F, 30 MCG/0.3 mL, 12 YRS AND ABOVE, IM ([employer]) 02/12/2023 Covid-19, Mrna, Lnp-s, Pf, [...] Care Team (Late st Contact Info) Description 08/31/2023 3:20 PM EDT Office Visit Family Practice [facility] [address] [address] Kal Ray CRNP [address] [place] [address] [address] 09/01/2023 2:45 PM EDT Office Visit Orthopaedics [facility] [address] [place] [address] Gus Daly, [address] [place] [address] 2023 1:30 PM EDT Office Visit Allergy/Immunology [facility] [address] [place] [address] Enrique Mcpherson MD [address] [place] [address] 09/24/2023 11:45 AM EDT Office Visit Orthopaedics, [facility] [facility] [address] [place] [address] Dandre Resendez MD [address] [place] [address] 10/02/2023 10:15 AM EDT Imaging Radiology [facility] 1st [facility] 132 [facility] [place] [address] 10/15/2023 10:00 AM EDT Cardiac Studies Cardiology, [facility] 132 [facility] [place] [address] [facility] 132 [facility] [place] [address] 12/17/2023 1:00 PM EDT Office Visit Family Practice [facility] 132 [facility] [place] [address] Tip Oliver DO [address] [place] [address] 08/23/2024 11:30 AM EDT Office Visit Urology, [facility] 132 [facility] [place] [address] Anthony Foster MD [address] [...] completing the topic Zoster Vaccines Completed 02/22/2019, 080 11/2018, 03/02/2012 Lung Cancer Screening Completed 09/30/2022, [...] filedocumented as of this encounter Care Teams Toe Pounder Relationship Specialty Start Date End Date Tip Oliver DO [address] [place] [address] PCP - General Family Medicine 07/19/20 documented as of this encounter
--- OUTSIDE RECORDS SUMMARY | 2023-11-06 23:27 | External Medical Summary | Summary of Care ---
Author Name Unknown Organization [facility] Address [address] [facility] [place] [address] Phone [phone] Care Team Providers Care First Aid Nurse Name Role Phone Tip Oliver DO Primary Care Provider Reason for Visit * Reason Onset Date Comments Health Maintenance 08/27/2023 Encounter Details Date Type Department Care Team (Late st Contact Info) Description 08/27/2023 Telephone Family Practice [facility] [address] [place] [address] Tip Oliver DO [address] [place] [address] Health Maintenance Allergies Active Allergy Reactions Criticality Noted Date Comments Povidone Iodine 08/21/2021 Iodides Rash Medium 12/13/1998 Allergy to Betadine- Iodinated Contrast Media Itching 05/31/2018 Iodine Itching 04/06/2012 Amlodipine Besylate Edema Other High 08/12/2013 Severe edema of feet and lower legs Shellfish-Derived Products Rash High 2 documented as of this encounter (statuses as of 08/27/2023) Medications Medication Sig Dispensed Refills Start Date [...] use: lifetime. 300 Strip 3 01/04/2013 Active [place]-3 Fatty Acids (FISH OIL) 1360 MG CAPS [...] QWEEK,Indications: on fridays, Reported on 12/11/2022 Ipratropium [place] 0.03 % Nasal Solution (Atrovent) Administer 2 [...] as of this encounter (statuses as of 08/27/2023) Active Problems Problem Noted Date Diagnosed Date [...] enlargement 01/20/2018 REANNA on CPAP 02/08/2014 Overview: [employer]. Fax is [phone] Phone no is [phone] Labile hypertension 12/26/2011 Type 2 diabetes mellitus [...] as of this encounter (statuses as of 08/27/2023) Resolved Problems Problem Noted Date Diagnosed Date [...] as of this encounter (statuses as of 08/27/2023) Immunizations Name Administration Dates Next Due COVID-19 mRNA, LNP-s, No Pre serve, 2-Dose Series ([employer]) 02/11/2021,06/15/2020,05/19/2020 COVID-19, MRNA-LNP, 23-24, P F, 30 MCG/0.3 mL, 12 YRS AND ABOVE, IM ([employer]-Comirnat) 02/12/2023 Covid-19, Mrna, Lnp-s, Pf, B ivalent, 30 Mcg, IM, 12 yrs and above ([employer]) 01/10/2022 H1N1 2009 Influenza, IM 04/30/2009 Pneumococcal [...] encounter Miscellaneous Notes * Telephone Encounter - Aparna Wynne LPN - 08/27/2023 8:06 AM EDT Care Gaps Comprehensive Care Outreach Last Office/Telemedicine Visit: 08/06/2023 (in office), 07/05/2021 (telemedicine) Next Office Visit: 08/31/2023 Hemoglobin AIC Results: Lab Results Component Value Date/Time HEMOGLOBIN A1C - [facility] 6.8 (H) 06/15/2023 02:19 PM HEMOGLOBIN A1C - [facility] 7.0 (H) 12/08/2022 10:08 AM HEMOGLOBIN A1C - [facility] 7.2 (H) 08/21/2022 02:00 PM HEMOGLOBIN A1C - [facility] 7.3 (H) 12/09/2019 11:55 AM HEMOGLOBIN A1C - [facility] 7.5 (H) 11/04/2018 11:14 AM HEMOGLOBIN A1C - [facility] 6.5 (H) 05/31/2018 10:53 AM BP Readings from Last 1 Encounters: 08/15/23 176/84 Reviewed Health Maintenance below: Health Maintenance Topic Date Due Diabetic Eye Exam 07/19/2023 Diabetic Foot Exam 11/22/2023 Depression Screening 12/12/2023 HbA1c 12/14/2023 Eye heimer requested Labs already ordered Care Gap Outreach Action Taken: Outside records requested documented in this encounter Plan of Treatment Upcoming Encounters Date Type Department Care Team (Late st Contact Info) Description 08/31/2023 3:20 PM EDT Office Visit Family Practice [facility] [address] [place] [address] Kal Ray CRNP [address] [place] [address] 09/01/2023 2:45 PM EDT Office Visit Orthopaedics [facility] [address] [address] Gus Daly DO [address] [place] [address] 2023 1:30 PM EDT Office Visit Allergy/Immunology [facility] 200 [facility] [place] [address] Enrique Mcpherson MD 200 [facility] [place] [address] 09/24/2023 11:45 AM EDT Office Visit Orthopaedics, [place] [address] [place] [address] Dandre Resendez MD [address] [facility] [address] 10/02/2023 10:15 AM EDT Imaging Radiology [facility] 1st [facility] 132 [facility] [place] [address] 10/15/2023 10:00 AM EDT Cardiac Studies Cardiology, [facility] 132 [facility] [place] [address] [place], Pacer Clinic [facility] 132 [facility] [place] [address] 12/17/2023 1:00 PM EDT Office Visit Family Practice [facility] 132 [facility] [place] [address] Tip Oliver DO 132 [facility] [place] [address] 08/23/2024 11:30 AM EDT Office Visit Urology, [facility] 132 [facility] [place] [address] Anthony Foster MD [address] [place] [address] Scheduled Procedures Name Priority Associated Diagnoses Date/Ti [...] completing the topic Zoster Vaccines Completed 02/22/2019, 08/0 11/2018, 03/02/2012 [...] filedocumented as of this encounter Care Teams First Aid Nurse Relationship Specialty Start Date End Date Tip Oliver DO [address] [place] [address] [address] PCP - General Family Medicine 07/19/20 documented as of this encounter
--- OUTSIDE RECORDS SUMMARY | 2023-11-06 23:27 | External Medical Summary | Summary of Care ---
Author Name Unknown Organization [facility] Address [address] [facility] [place] [address] Phone [phone] Care Team Providers Care Shot Core Drill Operator Name Role Phone Tip Oliver Primary [...] use: lifetime. 300 Strip 3 01/04/2013 Active [place]-3 Fatty Acids (FISH OIL) 1360 MG CAPS [...] QWEEK,Indications: on fridays, Reported on 12/11/2022 Ipratropium [place] 0.03 % Nasal Solution (Atrovent) Administer 2 [...] enlargement 01/20/2018 REANNA on CPAP 02/08/2014 Overview: [employer]. Fax is [phone] Phone no is [phone] Labile hypertension 12/26/2011 Type 2 diabetes mellitus [...] mRNA, LNP-s, No Pre serve, 2-Dose Series ([employer]) 02/11/2021,06/15/2020,05/19/2020 COVID-19, MRNA-LNP, 23-24, P F, 30 MCG/0.3 mL, 12 YRS AND ABOVE, IM ([facility]) 02/12/2023 Covid-19, [...] 3:20 PM EDT Office Visit Family Practice [facility] [address] [address] Kal Ray CRNP [address] [place] [address] [address] 09/01/2023 2:45 PM EDT Office Visit Orthopaedics [facility] [address] [place] [address] Gus Daly, [address] [place] [address] 2023 1:30 PM EDT Office Visit Allergy/Immunology [facility] [address] [place] [address] Enrique Mcpherson MD [address] [place] [address] 09/24/2023 11:45 AM EDT Office Visit Orthopaedics, [place] [address] [place] [address] Dandre Resendez MD [address] [place] [address] 10/02/2023 10:15 AM EDT Imaging Radiology [facility] [address] [facility] 132 [facility] [place] [address] 10/15/2023 10:00 AM EDT Cardiac Studies Cardiology, [facility] 132 [facility] [place] [address] [facility] 132 [facility] [place] [address] 12/17/2023 1:00 PM EDT Office Visit Family Practice [facility] 132 [facility] [place] [address] Tip Oliver DO [address] [place] [address] 08/23/2024 11:30 AM EDT Office Visit Urology, [facility] 132 [facility] [place] [address] Anthony Foster MD 27 [facility] [address] [place] [address] Scheduled Procedures [...] filedocumented as of this encounter Care Teams Shot Core Drill Operator Relationship Specialty Start Date End Date Tip Oliver DO [address] [place] [address] PCP - General Family Medicine 07/19/20 documented as of this encounter
--- OUTSIDE RECORDS SUMMARY | 2023-11-06 23:27 | External Medical Summary | Summary of Care ---
Author Name Unknown Organization [facility] Address [address] [facility] [place] [address] Phone [phone] Care Team Providers Care Oxygen Therapist Name Role Phone Tip Oliver Primary Care [...] use: lifetime. 300 Strip 3 01/04/2013 Active [place]-3 Fatty Acids (FISH OIL) 1360 MG CAPS [...] QWEEK,Indications: on fridays, Reported on 12/11/2022 Ipratropium [place] 0.03 % Nasal Solution (Atrovent) Administer 2 [...] enlargement 01/20/2018 REANNA on CPAP 02/08/2014 Overview: [employer]. Fax is [phone] Phone no is [phone] Labile hypertension 12/26/2011 Type 2 diabetes mellitus [...] mRNA, LNP-s, No Pre serve, 2-Dose Series ([facility]) 02/11/2021,06/15/2020,05/19/2020 COVID-19, MRNA-LNP, 23-24, P F, 30 MCG/0.3 mL, 12 YRS AND ABOVE, IM ([employer]) 02/12/2023 Covid-19, Mrna, Lnp-s, Pf, B [...] 3:20 PM EDT Office Visit Family Practice [facility] [address] [address] Kal Ray CRNP [address] [place] [address] [address] 09/01/2023 2:45 PM EDT Office Visit Orthopaedics [facility] [address] [place] [address] Gus Daly, [address] [place] [address] 2023 1:30 PM EDT Office Visit Allergy/Immunology [facility] [address] [place] [address] Enrique Mcpherson MD [address] [place] [address] 09/24/2023 11:45 AM EDT Office Visit Orthopaedics, [place] [address] [place] [address] Dandre Resendez MD [address] [place] [address] 10/02/2023 10:15 AM EDT Imaging Radiology [facility] 1st [facility] 132 [facility] [place] [address] 10/15/2023 10:00 AM EDT Cardiac Studies Cardiology, [facility] 132 [facility] [place] [address] [facility] 132 [facility] [place] [address] 12/17/2023 1:00 PM EDT Office Visit Family Practice [facility] 132 [facility] [place] [address] Tip Oliver DO [address] [place] [address] 08/23/2024 11:30 AM EDT Office Visit Urology, [facility] 132 [facility] [place] [address] Anthony Foster MD 27 [facility] [...] filedocumented as of this encounter Care Teams Oxygen Therapist Relationship Specialty Start Date End Date Tip Oliver DO [address] [place] [address] PCP - General Family Medicine 07/19/20 documented as of this encounter
--- OUTSIDE RECORDS SUMMARY | 2023-11-06 23:27 | External Medical Summary | Summary of Care ---
Author Name Unknown Organization [facility] Address [address] [facility] [place] [address] Phone [phone] Care Team Providers Care Charge Entry Clerk Name Role Phone Tip Oliver Primary [...] use: lifetime. 300 Strip 3 01/04/2013 Active [place]-3 Fatty Acids (FISH OIL) 1360 MG CAPS [...] QWEEK,Indications: on fridays, Reported on 12/11/2022 Ipratropium [place] 0.03 % Nasal Solution (Atrovent) Administer 2 [...] enlargement 01/20/2018 REANNA on CPAP 02/08/2014 Overview: [employer]. Fax is [phone] Phone no is [phone] Labile hypertension 12/26/2011 Type 2 diabetes mellitus [...] mRNA, LNP-s, No Pre serve, 2-Dose Series ([employer]) 02/11/2021,06/15/2020,05/19/2020 COVID-19, MRNA-LNP, 23-24, P F, 30 MCG/0.3 mL, 12 YRS AND ABOVE, IM ([facility]) 02/12/2023 Covid-19, Mrna, Lnp-s, Pf, [...] PM EDT Office Visit Family Practice [facility] [address] [place] [address] [address] Kal Ray CRNP [address] [place] [address] [address] 09/01/2023 2:45 PM EDT Office Visit Orthopaedics [facility] [address] [place] [address] Gus Daly, [address] [place] [address] 2023 1:30 PM EDT Office Visit Allergy/Immunology [facility] [address] [place] [address] Enrique Mcpherson MD [address] [place] [address] 09/24/2023 11:45 AM EDT Office Visit Orthopaedics, [place]i [address] [place] [address] Dandre Resendez MD [address] [place] [address] 10/02/2023 10:15 AM EDT Imaging Radiology [facility] 1st [facility] [place] [address] 10/15/2023 10:00 AM EDT Cardiac Studies Cardiology, [facility] [address] [facility] [place] [address] [facility] [place] [address] 12/17/2023 1:00 PM EDT Office Visit Family Practice [facility] [address] [facility] [place] [address] Tip Oliver DO [address] [place] [address] 08/23/2024 11:30 AM EDT Office Visit Urology, [facility] 132 [facility] [place] [address] Anthony Foster MD 27 [facility] [address] [place] [address] Scheduled Procedures [...] filedocumented as of this encounter Care Teams Charge Entry Clerk Relationship Specialty Start Date End Date Tip Oliver DO [address] [place] [address] PCP - General Family Medicine 07/19/20 documented as of this encounter
--- OUTSIDE RECORDS SUMMARY | 2023-11-06 23:27 | External Medical Summary | Summary of Care ---
Author Name Unknown Organization [facility] Address [address] [facility] [place] [address] Phone [phone] Care Team Providers Care Director Of Convention Services Name Role Phone Tip Oliver Primary Care Provider Reason for Visit * Reason Onset Date Comments Medication Refill 08/24/2023 Encounter Details Date Type Department Care Team (Late st Contact Info) Description 08/24/2023 Refill Cardiology, [facility] [address] [place] [address] Charleen Mar CRNP [address] [place] [address] Balance problems Allergies Active Allergy Reactions Criticality Noted Date Comments Povidone Iodine 08/21/2021 Iodides Rash Medium 12/13/1998 Allergy to Betadine- Iodinated Contrast Media Itching 05/31/2018 Iodine Itching 04/06/2012 Amlodipine Besylate Edema Other High 08/12/2013 Severe edema of feet and lower legs Shellfish-Derived Products Rash High 2 documented as of this encounter (statuses as of 08/25/2023) Medications Medication Sig Dispensed Refills Start Date [...] use: lifetime. 300 Strip 3 01/04/2013 Active [place]-3 Fatty Acids (FISH OIL) 1360 MG CAPS [...] QWEEK,Indications: on fridays, Reported on 12/11/2022 Ipratropium [place] 0.03 % Nasal Solution (Atrovent) Administer 2 [...] as of this encounter (statuses as of 08/25/2023) Active Problems Problem Noted Date Diagnosed Date [...] enlargement 01/20/2018 REANNA on CPAP 02/08/2014 Overview: [employer]. Fax is [phone] Phone no is [phone] Labile hypertension 12/26/2011 Type 2 diabetes mellitus [...] as of this encounter (statuses as of 08/25/2023) Resolved Problems Problem Noted Date Diagnosed Date [...] as of this encounter (statuses as of 08/25/2023) Immunizations Name Administration Dates Next Due COVID-19 mRNA, LNP-s, No Pre serve, 2-Dose Series ([employer]) 02/11/2021,06/15/2020,05/19/2020 COVID-19, MRNA-LNP, 23-24, P F, 30 MCG/0.3 mL, 12 YRS AND ABOVE, IM ([facility] 02/12/2023 Covid-19, Mrna, Lnp-s, Pf, B [...] encounter Miscellaneous Notes * Telephone Encounter - Kelby Fernandes RN - 08/25/2023 12:31 PM EDTRefused Prescriptions: Disp Refills Potassium Chloride ER 20 MEQ Oral Tablet E*90 Tab*3 Sig: Take 1Tablet by mouth in the morning.Refused By: KELBY FERNANDES for Refusal: Duplicate RequestReason for Refusal Comment: Rx sent 08/21/23 documented in this encounter Plan of Treatment Upcoming Encounters Date Type Department Care Team (Late st Contact Info) Description 08/31/2023 3:20 PM EDT Office Visit Family Practice [facility] [address] [place] [address] Kal Ray CRNP [address] [place] [address] 09/01/2023 2:45 PM EDT Office Visit Orthopaedics [facility] [address] [place] [address] Gus Daly DO [address] [place] [address] 09/08/2023 2:30 PM EDT Office Visit Orthopaedics [facility] [address] [place] [address] Gigi Phillips MD [address] [place] [address] 2023 1:30 PM EDT Office Visit Allergy/Immunology [facility] [address] [place] [address] Enrique Mcpherson MD [address] [place] [address] 10/02/2023 10:15 AM EDT Imaging Radiology [facility] 1st [facility] 132 [facility] [place] [address] 10/15/2023 10:00 AM EDT Cardiac Studies Cardiology, [facility] 132 [facility] [place] [address] [place] [facility] 132 [facility] [place] [address] 12/17/2023 1:00 PM EDT Office Visit Family Practice [facility] 132 [facility] [place] [address] Tip Oliver DO 132 [facility] [place] [address] 08/23/2024 11:30 AM EDT Office Visit Urology, [facility] 132 [facility] [place] [address] Anthony Foster MD [address] [facility] [address] [place] [address] Scheduled Procedures Name Priority Associated Diagnoses Date/Ti [...] as of this encounter Visit Diagnoses Diagnosis Balance problems Other symptoms involving nervous and musculoskeletal systems documented in this encounter Care Teams Director Of Convention Services Relationship Specialty Start Date End Date Tip Oliver DO [address] [place] [address] [address] PCP - General Family Medicine 07/19/20 documented as of this encounter
--- OUTSIDE RECORDS SUMMARY | 2023-11-06 23:27 | External Medical Summary | Summary of Care ---
Author Name Unknown Organization [facility] Address [address] [facility] [place] [address] Phone [phone] Care Team Providers Care Lining Scrubber Name Role Phone Tip Oliver DO Primary Care Provider Reason for Visit * Reason Onset Date Comments Med Request 08/25/2023 Encounter Details Date Type Department Care Team (Late st Contact Info) Description 08/25/2023 Telephone Family Practice [facility] [address] [place] [address] Tip Oliver DO [address] [place] [address] Med Request Allergies Active Allergy Reactions Criticality Noted Date [...] use: lifetime. 300 Strip 3 01/04/2013 Active [place]-3 Fatty Acids (FISH OIL) 1360 MG CAPS [...] QWEEK,Indications: on fridays, Reported on 12/11/2022 Ipratropium Scott 0.03 % Nasal Solution (Atrovent) Administer 2 [...] enlargement 01/20/2018 REANNA on CPAP 02/08/2014 Overview: [employer]. Fax is [phone] Phone no is [phone] Labile hypertension 12/26/2011 Type 2 diabetes mellitus [...] mRNA, LNP-s, No Pre serve, 2-Dose Series ([employer]) 02/11/2021,06/15/2020,05/19/2020 COVID-19, MRNA-LNP, 23-24, P F, 30 MCG/0.3 mL, 12 YRS AND ABOVE, IM ([employer]-Comirnat) 02/12/2023 Covid-19, Mrna, Lnp-s, Pf, B ivalent, 30 Mcg, IM, 12 yrs and above ([employer]) 01/10/2022 H1N1 2009 Influenza, IM 04/30/2009 Pneumococcal [...] encounter Miscellaneous Notes * Telephone Encounter - Jazmin Adams LPN - 08/25/2023 2:52 PM EDT Son Jeffrey Joseph picked up Ozempic at appt today with Regan Ruiz * Telephone Encounter - Layla Troy LPN - 08/25/2023 1:43 PM EDT Received pt assistance medication Ozempic in med room fridge Pt aware and son will pickling grader later today documented in this encounter Plan of Treatment Upcoming Encounters Date Type Department Care Team (Late st Contact Info) Description 08/31/2023 3:20 PM EDT Office Visit Family Practice [facility] [address] [place] [address] Kal Ray CRNP [address] [place] [address] 09/01/2023 2:45 PM EDT Office Visit Orthopaedics [facility] [address] [place] [address] Gus Daly DO [address] [place] [address] 09/08/2023 2:30 PM EDT Office Visit Orthopaedics [facility] [address] [place] [address] Gigi Phillips MD [address] [place] [address] 2023 1:30 PM EDT Office Visit Allergy/Immunology [facility] [place] [address] [place] [address] Enrique Mcpherson MD [address] [place] [address] 10/02/2023 10:15 AM EDT Imaging Radiology [address] [facility] [place] [address] 10/15/2023 10:00 AM EDT Cardiac Studies Cardiology, [facility] [address] [facility] [place] [address] [facility] [address] [facility] [place] [address] 12/17/2023 1:00 PM EDT Office Visit Family Practice [facility] [address] [facility] [place] [address] Tip Oliver DO [address] [facility] [place] [address] 08/23/2024 11:30 AM EDT Office Visit Urology, [facility] [address] [facility] [place] [address] Anthony Foster MD [address] [address] [place] [address] Scheduled Procedures Name Priority Associated Diagnoses Date/Ti [...] filedocumented as of this encounter Care Teams Lining Scrubber Relationship Specialty Start Date End Date Tip Oliver DO [address] [place] [address] PCP - General Family Medicine 07/19/20 documented as of this encounter
--- OUTSIDE RECORDS SUMMARY | 2023-11-06 23:27 | External Medical Summary | Summary of Care ---
Author Name Unknown Organization [facility] Address [address] [facility] [place] [address] Phone [phone] Care Team Providers Care Printing Engineer Name Role Phone Tip Oliver Primary Care Provider Reason for Visit * Reason Comments Follow Up diabetes Encounter Details Date Type Department Care Team (Late st Contact Info) Description 08/31/2023 3:20 PM EDT Office Visit Family Practice [facility] [address] [place] [address] Kal Ray CRNP [address] [place] [address] Type 2 diabetes mellitus with hemoglobin A1c goal of less than 7.0% (HCC)*; HTN, goal below 130/80; Tachy-tripp syndrome (HCC); Dyslipidemia, goal LDL below 70; Hypothyroidism, unspecified type; BPH without obstruction/lower urinary tract symptoms Allergies Active Allergy Reactions Criticality Noted Date Comments Povidone Iodine 08/21/2021 Iodides Rash Medium 12/13/1998 Allergy to Betadine- Iodinated Contrast Media Itching 05/31/2018 Iodine Itching 04/06/2012 Amlodipine Besylate Edema Other High 08/12/2013 Severe edema of feet and lower legs Shellfish-Derived Products Rash High 2 documented as of this encounter (statuses as of 08/31/2023) Medications Medication Sig Dispensed Refills Start Date [...] use: lifetime. 300 Strip 3 01/04/2013 Active [place]-3 Fatty Acids (FISH OIL) 1360 MG CAPS [...] QWEEK,Indications: on fridays, Reported on 12/11/2022 Ipratropium [place] 0.03 % Nasal Solution (Atrovent) Administer 2 [...] as of this encounter (statuses as of 08/31/2023) Active Problems Problem Noted Date Diagnosed Date [...] enlargement 01/20/2018 REANNA on CPAP 02/08/2014 Overview: [employer]. Fax is [phone] Phone no is [phone] Labile hypertension 12/26/2011 Type 2 diabetes mellitus [...] as of this encounter (statuses as of 08/31/2023) Resolved Problems Problem Noted Date Diagnosed Date [...] of inactive term OCCUP CIRCUMSTANCES NEC 09/17/2000 0612/2003 Chest pain 09/06/1999 10/04/2003 Abdominal pain, generalized [...] as of this encounter (statuses as of 08/31/2023) Immunizations Name Administration Dates Next Due COVID-19 mRNA, LNP-s, No Pre serve, 2-Dose Series ([employer]) 02/11/2021,06/15/2020,05/19/2020 COVID-19, MRNA-LNP, 23-24, P F, 30 MCG/0.3 mL, 12 YRS AND ABOVE, IM ([employer]Comir[employer]) 02/12/2023 Covid-19, Mrna, Lnp-s, Pf, B ivalent, [...] Sign Reading Time Taken Comments Blood Pressure 104/64 08/31/2023 3:04 PM EDT Pulse 80 08/31/2023 3:04 PM EDT Temperature 37 C (98.6 F) 08/31/2023 3:04 PM EDT Respiratory Rate 16 08/31/2023 3:04 PM EDT Oxygen Saturation - - Inhaled Oxygen Concentration - - Weight 96.8 kg (213 lb 8 oz) 08/31/2023 3:04 PM EDT Height - - Body Mass Index 30.63 08/15/2023 5:11 PM EDT documented in this encounter Progress Notes * Kal Ray CRNP - 08/31/2023 3:10 PM EDT Images from the original note were not included. Follow up Family Medicine Visit History of Present Illness Ann Joseph is a very pleasant 77 year old male with PMH listed below presenting with f/u on diabetes. Overall doing well. No fever, chills, chest pain, shortness of breath, headache, nausea, vomit, diarrhea, constipation or vision changes Was in ER on 08/15/23 for leg swelling, ruled out DVT, f/u with ortho. DM - metformin 2000mg daily, ozempic 2mg weekly since last year Most recent A1C 6.8 Eye dodctor yearly Potentially right hip replacement in near future, was planning but cancelled due to colon polyp. 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 Comment: [employer] Tobacco Use Smoking status: Former [...] on file Housing Stability: Not on file PMH: Past Medical History: Diagnosis Date Aortic root enlargement (HCC) 01/20/2018 Ascending aorta dilatation (HCC) 12/13/2018 Balance problems 10/18/2019 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 adenomatous/repeat colonoscopy in 5 yrs COVID-19 04/12/2020 Depressive disorder, not elsewhere classified 10/30/2000 Diabetes 1.5, managed as type 2 ([facility]) Diverticulosis of colon 10/01/2005 Dyslipidemia, goal LDL below 160 Hypercholesterolemia Esophageal reflux 09/06/1999 Hoarseness of voice 07/05/2021 HTN, goal below 140/90 Hypertension, benign IMPOTENCE, 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 Iron deficiency anemia 02/15/2021 Lyme disease 02/28/2004 Mitral valve prolapse 05/09/2003 Nonobstructive atherosclerosis of coronary artery 12/13/2018 Solitary kidney Type 2 diabetes mellitus with hemoglobin A1c goal of less than 7.0% ([facility]) 08/20/2010 ICD-10 update of inactive term Past Surgical History: Procedure Laterality Date COLONOSCOPY W/ BIOPSY (RECTUM) 10/20/08 done adenomatous/repeat colonoscopy in 5 yrs COLONOSCOPY, DIAGNOSTIC (RECTUM) , 10/27 next 10/30 COLONOSCOPY, DIAGNOSTIC (RECTUM) 11/07/2013 adenomatous polyps, diverticulosis, repeat 5 yrs/COLONOSCOPY FLEXIBLE PROXIMAL DIAGNOSTIC performedby Mitchell Waters MD at ENDOSCOPY [facility] COLONOSCOPY, DIAGNOSTIC (RECTUM) 02/09/2018 adenomatous polyps, repeat 3 yrs/COLONOSCOPY FLEXIBLE PROXIMAL DIAGNOSTIC performed by Jeffrey Jaramillo MD at ENDOSCOPY [facility] COLONOSCOPY, DIAGNOSTIC (RECTUM) 03/19/2021 patent end to side ileo-colonic anastomosis/mulitple polyps/diverticulosis sigmoid colon/biopsies show adenomatous polyps/recall 5 years/COLONOSCOPY FLEXIBLE PROXIMAL DIAGNOSTIC performed by Jeffrey Anderson MD at ENDOSCOPY [facility] COLONOSCOPY, DIAGNOSTIC (RECTUM) 12/15/2022 tubular adenoma polyp / COLONOSCOPY FLEXIBLE PROXIMAL DIAGNOSTIC performed by Riky Daniels MD at [facility] COLONOSCOPY, FLEX, W/ ENDOSCOPIC MUCOSAL RESECTION 03/17/2023 biopsies show inflammatory fibroid polyp with overlying reactive, hyperplastic changes/repeat 1 year/COLONOSCOPY, FLEXIBLE; WITH ENDOSCOPIC MUCOSAL RESECTION performed by Jose Miguel Barriga MD at ENDOSCOPY [facility] COLONOSCOPY, GI REFERRAL OP 10/01/2005 tubular adenoma and hyperplastic polyps--repeat 3 years DENTAL SURGERY PROCEDURE NEC Dental Surgery Procedure EGD, FLEXIBLE, DIAGNOSTIC 02/09/2018 normal/ESOPHAGOGASTRODUODENOSCOPY (EGD), FLEXIBLE, TRANSORAL, DIAGNOSTIC performed by Jeffrey Jaramillo MD at ENDOSCOPY [facility] EGD, FLEXIBLE, DIAGNOSTIC 09/11/2021 Multiple benign gastric polyps / ESOPHAGOGASTRODUODENOSCOPY (EGD), FLEXIBLE, TRANSORAL, DIAGNOSTIC performed by Jeffrey Jaramillo MD at ENDOSCOPY [facility] EGD, FLEXIBLE, DIAGNOSTIC 12/15/2022 normal / ESOPHAGOGASTRODUODENOSCOPY (EGD), FLEXIBLE, TRANSORAL, DIAGNOSTIC performed by Riky Daniels MD at ENDOSCOPY [facility] EXERCISE ECHO 01/2003 no ischemic changes. Suggestion of mitral valve prolapse. INJECT DX/THER SUBSTANCE INTERLAMINAR LUMBAR/SACRAL W IMAGE GUIDE 05/07/2017 INJECTION SPINE LUMBAR OR SACRAL performed by [facility] Rejisins, DO at OR [facility] INJECT DX/THER SUBSTANCE INTERLAMINAR LUMBAR/SACRAL W IMAGE GUIDE 07/30/2017 INJECTION SPINE LUMBAR OR SACRAL performed by [place] Maryam Brownlees, DO at OR [facility] INJECT DX/THER SUBSTANCE INTERLAMINAR LUMBAR/SACRAL W IMAGE GUIDE 01/21/2018 INJECTION SPINE LUMBAR OR SACRAL performed by [facility] Rejisins, DO at OR [facility] INSERT HEART ELECTRODE, DUAL CHAMBR 06/13/2020 PARTIAL COLECTOMY W/ANASTOMOSIS 03/1998 Colectomy Partial- right REMOVAL OF KIDNEY 1965 right REMOVE TONSILS & ADENOIDS, UNDER 12 Tonsillectomy/Adenoids,<12 Y/O REPAIR BICEPS TENDON RUPTURE 1995 right REPAIR RUPTURED ROTATOR CUFF, ACUTE 01/1996 left REPAIR RUPTURED ROTATOR CUFF, ACUTE 2001 right SACROILIAC JOINT INJECT W/GUIDANCE 02/02/2020 INJECTION SACROILIAC JOINT performed by Gallo Sebastian DO at OR [facility] SACROILIAC JOINT INJECT W/GUIDANCE 11/12/2020 INJECTION SACROILIAC JOINT performed by Gallo Sebastian DO at OR [facility] Outpatient Medications Marked as Taking for the 08/31/23 encounter (Office Visit) with Kal Ray CRNP Medication Sig valACYclovir HCl 500 MG Oral Tablet (Valtrex) TAKE 1 TABLET BY MOUTH EVERY DAY Atorvastatin Calcium 40 MG Oral Tablet (Lipitor) Take 1 Tablet by mouth at bedtime. In the morning. Potassium Chloride ER 20 MEQ Oral Tablet Extended Release Take 1 Tablet by mouth in the morning. oxyBUTYnin Chloride ER 10 MG Oral Tablet Extended Release 24 Hour Take 1 Tablet by mouth in the morning. Tadalafil 5 MG Oral Tablet (Cialis) TAKE 1 TABLET BY MOUTH EVERY DAY NEEDED FOR ERECTILE DYSFUNCTION Omeprazole 20 MG Oral Capsule Delayed Release (PriLOSEC) Take 1 Capsule by mouth in the morning and1 Capsule in the evening. Fluticasone Propionate 50 MCG/ACT Nasal Suspension (Flonase) INSTILL 2 SPRAYS IN EACH NOSTRIL EVERYDAY metFORMIN HCl 1000 MG Oral Tablet (Glucophage) Take 1 Tablet by mouth 2 times a day with morning and evening meals. Losartan Potassium 50 MG Oral Tablet (Cozaar) Take 1 Tablet by mouth in the morning and 1 Tablet before bedtime. Verapamil HCl ER 180 MG Oral Tablet Extended Release (Isoptin SR) Take 1 Tablet by mouth in the morning. Famotidine 20 MG Oral Tablet (Pepcid) TAKE 1 TABLET BY MOUTH EVERY MORNING Levothyroxine Sodium 88 MCG Oral Tablet (Levoxyl) Take 1 Tablet by mouth daily first thing in the morning. (at least 30 min prior to breakfast or other meds) Triamcinolone Acetonide 0.1 % External Ointment (Aristocort) Apply topically to affected area 2 times a day. To affected area of the ear. Furosemide 40 MG Oral Tablet (Lasix) Take 1 Tablet by mouth in the morning. Tamsulosin HCl 0.4 MG Oral Capsule (Flomax) TAKE 1 CAPSULE BY MOUTH EVERY MORNING (Patient taking differently: No sig reported) Carvedilol 25 MG Oral Tablet (Coreg) TAKE 1 TABLET BY MOUTH EVERY MORNING AND TAKE 1 TABLET BEFORE BEDTIME Ipratropium [place] 0.03 % Nasal Solution (Atrovent) Administer 2 Sprays into nostril in the morning and 2 Sprays at noon and 2 Sprays before bedtime. Ozempic (2 MG/DOSE) 8 MG/3ML Subcutaneous Solution Pen-injector (Semaglutide (2 MG/DOSE)) Inject 0.75 mL under the skin once a week. (Patient taking differently: Inject 2 mg under the skin once a week.) Slow Fe 142 (45 Fe) MG Oral Tablet Extended Release (Ferrous Sulfate ER) Take by mouth. Vitamin D-3 25 MCG (1000 UT) Oral Capsule Take 1 Capsule by mouth in the morning. PreserVision AREDS 2 Oral Capsule Take 1 Capsule by mouth every evening. Acetaminophen 325 MG Oral Tablet (Tylenol) Take 2 Tablets by mouth every 6 hours as needed for Pain, Mild or Pain, Moderate. Wheat Dextrin (BENEFIBER) powder Take by mouth daily. Insulin Pen Needle (BD PEN NEEDLE MARISA U/F) 32G X 4 MM Use once daily Multiple Vitamins-Minerals (DAILY MULTIVITAMIN) CAPS Take by mouth. [place]-3 Fatty Acids (FISH OIL) 1360 MG CAPS Take by mouth. FREESTYLE LANCETS MISC use for testing up to 2 times a day. dx 250.00. estimated use: lifetime. FREESTYLE TEST STRP use for testing up to 2 times a day. dx 250.00. estimated use: lifetime. ASPIRIN 81 MG PO TABS Take by mouth at bedtime. Review of patient's allergies indicates: Allergen Reactions Norvasc [Amlodipine Besylate] Edema Other Severe edema of feet and lower legs Shellfish-Derived Products Rash Iodides Rash Allergy to Betadine- Betadine [Povidone Iodine] Iodinated Contrast Media Itching Iodine Itching Most Recent Immunizations Administered Date(s) Administered COVID-19 mRNA, LNP-s, No Preserve, 2-Dose Series ([employer]) 02/11/2021 COVID-19, MRNA-LNP, 23-24, PF, 30 MCG/0.3 mL, 12 YRS AND ABOVE, IM ([employer]- [facility]) 02/12/2023 Covid-19, Mrna, Lnp-s, Pf, Bivalent, 30 Mcg, IM, 12 yrs and above ([employer]) 01/10/2022 H1N1 2009 Influenza, IM 04/30/2009 Pneumococcal Conjugate Vacc, 13 Valent (Prevnar) 08/14/2015 Pneumococcal Polysaccharide PPV23 (Pneumovax) 10/27/2013 RSV Vac., Bivalent, Perfusion F, Pf,0.5 Ml (Abrysvo) 04/18/2023 Season Influenza, Cell Culture, 18+ Yrs, With Preserv (Flucelvax) 03/14/2013 Season Influenza, Quad, PF, Adjuvanted, 65+ Yrs, IM (FLUAD) 02/20/2020 Seasonal Influenza Virus Vaccine, Unspecified Formulation 02/05/1998 Seasonal Influenza, PF, 6 M & above, IM , (FluLaval or Fluzone) 01/31/2018 Seasonal Influenza, Quadrivalent Hd (Fluzone Hd) 02/12/2023 Seasonal Influenza, Quadrivalent, No Preserve, IM 01/12/2017 Seasonal Influenza, Split, IIV3, With Preserve, Inj 01/31/2014 Seasonal Influenza, Trivalent, Adjuvanted, 65+ yrs 01/04/2019 TD - Tetanus/Diptheria (ADULT) 09/25/1997 TDAP (age 11 and older)(Adacel) 12/01/2007 Varicella Zoster Vaccine (Adult) 03/02/2012 Zoster Vaccine Recombinant (Shingrix) 02/22/2019 Review of Systems: Physical Exam BP 104/64 (BP Site: Left Arm, BP Position: Sitting, BP Cuff Size: Large) | Pulse 80 | Temp 37 C (98.6 F) (Tympanic) | Resp 16 | Wt 96.8 kg (213 lb 8 oz) | BMI 30.63 kg/m | BSA 2.19 m Physical Exam Constitutional: Appearance: Normal appearance. HENT: Head: Normocephalic. Cardiovascular: Rate and Rhythm: Normal rate and regular rhythm. Pulmonary: Effort: Pulmonary effort is normal. Breath sounds: Normal breath sounds. Musculoskeletal: General: No swelling. Cervical back: Neck supple. Skin: General: Skin is warm. Neurological: Mental Status: He is alert and oriented to person, place, and time. Psychiatric: Mood and Affect: Mood normal. Assessment and Plan 1. Type 2 diabetes mellitus with hemoglobin A1c goal of less than 7.0% (HCC) Cont metformin and ozempic A1C 6.8 - HEMOGLOBIN A1C; Future 2. HTN, goal below 130/80 Lasix, verapamil, losartan 3. Tachy-tripp syndrome (HCC) Carvedilol 4. Dyslipidemia, goal LDL below 70 Cont Lipitor 5. Hypothyroidism, unspecified type Levoxyl 6. BPH without obstruction/lower urinary tract symptoms F/u urology Flomax, oxybutynin Wrap-Up I have advised the patient to call our office with any worsening or new symptoms. I spent a total of 30-39 minutes (exact time 30 mins) on the date of service in preparation, delivery, and documentation of the care provided to Ann Joseph excluding any time spent in the performance of separately billed services. Kal Ray, MSN, SOLAR ENGINEER [facility] documented in this encounter Nursing Notes * Devin Ramos RN - 08/31/2023 3:06 PM EDT Chief Complaint Patient presents with Follow Up diabetes documented in this encounter Plan of Treatment Upcoming Encounters Date Type Department Care Team (Late st Contact Info) Description 09/01/2023 2:45 PM EDT Office Visit Orthopaedics [facility] [address] [place] [address] Gus Daly DO [address] [place] [address] 2023 1:30 PM EDT Office Visit Allergy/Immunology [facility] [place] [address] [facility] [place] [address] Enrique Mcpherson MD 200 [facility] [place] [address] 09/24/2023 11:45 AM EDT Office Visit Orthopaedics, [place] [address] [place] [address] [place] [address] Dandre Resendez MD [address] [place] [address] [place] [address] 10/02/2023 10:15 AM EDT Imaging Radiology [facility] 1st [facility] [place] [address] [place] [address] 10/15/2023 10:00 AM EDT Cardiac Studies Cardiology, [facility] 132 [facility] [place] [address] [facility] 132 [facility] [place] [address] 12/17/2023 1:00 PM EDT Office Visit Family Practice [facility] [address] [facility] [place] [address] Tip Oliver DO 132 [facility] [place] [address] 08/23/2024 11:30 AM EDT Office Visit Urology, [facility] 132 [facility] [place] [address] Anthony Foster MD [address] [facility] [address] [place] [address] Scheduled Orders Name Type Priority Associated Diagnoses Orde r Schedule HEMOGLOBIN A1C Lab Routine Type 2 diabetes mellitus with hemoglobin A1c goal of less than 7.0% (HCC) Expected: 12/01/2023 (Approximate), Expires: 08/30/2024 Scheduled Procedures Name Priority Associated Diagnoses Date/Ti [...] goal of less than 7.0% (HCC)- Primary HTN, goal below 130/80 Unspecified essential hypertension Tachy-tripp syndrome (HCC) Sinoatrial node dysfunction Dyslipidemia, goal LDL below 70 Other and unspecified hyperlipidemia Hypothyroidism, unspecified type BPH without obstruction/lower urinary tract symptoms Hypertrophy of prostate without urinary obstruction and other lower urinary tract symptoms (LUTS) documented in this encounter Care Teams Printing Engineer Relationship Specialty Start Date End Date Tip Oliver DO [address] [place] [address] PCP - General Family Medicine 07/19/20 documented as of this encounter"
--- OUTSIDE RECORDS SUMMARY | 2023-11-06 23:27 | External Medical Summary | Summary of Care ---
Author Name Unknown Organization [facility] Address [address] [facility] [place] [address] Phone [phone] Care Team Providers Care Care Center Manager Name Role Phone Tip Oliver Primary Care [...] use: lifetime. 300 Strip 3 01/04/2013 Active [place]-3 Fatty Acids (FISH OIL) 1360 MG CAPS [...] QWEEK,Indications: on fridays, Reported on 12/11/2022 Ipratropium [place] 0.03 % Nasal Solution (Atrovent) Administer 2 [...] enlargement 01/20/2018 REANNA on CPAP 02/08/2014 Overview: [employer] Fax is [phone] Phone no is [phone] Labile hypertension 12/26/2011 Type 2 diabetes mellitus [...] mRNA, LNP-s, No Pre serve, 2-Dose Series ([employer]) 02/11/2021,06/15/2020,05/19/2020 COVID-19, MRNA-LNP, 23-24, P F, 30 MCG/0.3 mL, 12 YRS AND ABOVE, IM ([facility] 02/12/2023 Covid-19, Mrna, Lnp-s, Pf, [...] 3:20 PM EDT Office Visit Family Practice [facility] [address] [place] [address] Kal Ray CRNP [address] [place] [address] 09/01/2023 2:45 PM EDT Office Visit Orthopaedics [facility] [address] [place] [address] Gus Daly, [address] [place] [address] 2023 1:30 PM EDT Office Visit [facility] [address] [place] [address] Enrique Mcpherson MD [address] [place] [address] 09/24/2023 11:45 AM EDT Office Visit Orthopaedics, [place] [address] [place] [address] Dandre Resendez MD [address] [place] [address] 10/02/2023 10:15 AM EDT Imaging Radiology [facility] 132 [facility] [place] [address] 10/15/2023 10:00 AM EDT Cardiac Studies Cardiology, [facility] 132 [facility] [place] [address] [facility] 132 [facility] [place] [address] 12/17/2023 1:00 PM EDT Office Visit Family Practice [facility] 132 [facility] [place] [address] Tip Oliver DO [address] [place] [address] 08/23/2024 11:30 AM EDT Office Visit Urology, [facility] 132 [facility] [place] [address] Anthony Foster MD 27 [facility] [address] [place] [address] [...] filedocumented as of this encounter Care Teams Care Center Manager Relationship Specialty Start Date End Date Tip Oliver DO [address] [place] [address] PCP - General Family Medicine 07/19/20 documented as of this encounter
--- OUTSIDE RECORDS SUMMARY | 2023-11-06 23:27 | External Medical Summary | Summary of Care ---
Author Name Unknown Organization [facility] Address [address] [facility] [place] [address] Phone [phone] Care Team Providers Care Global President Name Role Phone Tip Oliver Primary Care Provider Reason for Visit * Reason Comments NEW PATIENT Encounter Details Date Type Department Care Team (Late st Contact Info) Description 08/17/2023 9:00 AM EDT Office Visit Orthopaedics [facility] [address] [place] [address] Gigi Phillips MD [address] [place] [address] Injury of left lower leg, initial encounter* [...] 250.00. estimated use: lifetime. 3 Box 3 01/05/20 13 Active FREESTYLE TEST STRPIndications:DM type 2, goal A1c below 7 use for testing up to 2 times a day. dx 250.00. estimated use: lifetime. 300 Strip 3 01/05/20 13 Active [place]-3 Fatty Acids (FISH OIL) 1360 MG CAPS Take by mouth. 0 Active Multiple Vitamins-Minerals (DAILY MULTIVITAMIN) CAPS Take by mouth. 0 Ac tive Insulin Pen Needle (BD PEN NEEDLE MARISA U/F) 32G X 4 MM Use once daily 100 Each 3 03/19/20 18 Active Wheat Dextrin (BENEFIBER) powder Take by [...] skin once a week. 3 mL 5 09/19/19 23 Active Additional Information Patient taking differently:2 mg Subcutaneous QWEEK,Indications: on fridays, Reported on 12/11/2022 Ipratropium [place] 0.03 % Nasal Solution (Atrovent) Administer 2 Sprays into nostril in the morning and 2 Sprays at noon and 2 Sprays before bedtime. 30 mL 6 10/18/19 23 Active Carvedilol 25 MG Oral Tablet (Coreg)Indications: SVT (supraventricular tachycardia) (HCC) TAKE 1 TABLET BY MOUTH EVERY MORNING AND TAKE 1 TABLET BEFORE BEDTIME 180 Tablet 3 10/30/19 23 Active Tamsulosin HCl 0.4 MG Oral Capsule (Flomax) TAKE 1 CAPSULE BY MOUTH EVERY MORNING 90 Capsule 3 11/05/19 Active Additional Information Patient taking differently: Indications: at lunchtime, Reported on 12/11/2022 Furosemide 40 MG Oral Tablet (Lasix)Indications: HTN, goal below 140/90 Take 1 Tablet by mouth in the morning. 90 Tablet 3 11/19/19 23 Active Levothyroxine Sodium 88 MCG Oral Tablet (Levoxyl)Indication s:Hypothyroidism, unspecified type Take 1 Tablet by mouth daily first thing in the morning. (at least 30 min prior to breakfast or other meds) 90 Tablet 3 12/12/19 23 Active Triamcinolone Acetonide 0.1 % External Ointment (Aristocort)Indicat ions:Atopic dermatitis, unspecified type Apply topically to affected area 2 times a day. To affected area of the ear. 80 g 5 12/12/19 23 Active Famotidine 20 MG Oral Tablet (Pepcid) TAKE 1 TABLET BY MOUTH EVERY MORNING 90 Tablet 3 12/18/19 23 Active Verapamil HCl ER 180 MG Oral Tablet Extended Release (Isoptin SR)Indications:SVT (supraventricular tachycardia) (HCC),Tachy-tripp syndrome (HCC) Take 1 Tablet by mouth in the morning. 90 Tablet 3 01/20/20 23 Active Losartan Potassium 50 MG Oral Tablet (Cozaar)Indications :Chest pain, unspecified type,COBIAN (dyspnea on exertion),HTN, goal below 140/90,Presence of cardiac pacemaker,SVT (supraventricular tachycardia) (HCC),REANNA (obstructive sleep apnea) Take 1 Tablet by mouth in the morning and 1 Tablet before bedtime. 180 Tablet 3 02/25/20 23 Active metFORMIN HCl 1000 MG Oral Tablet (Glucophage)Indicat ions:Type 2 diabetes mellitus with hemoglobin A1c goal of less than 7.0% (HCC) Take 1 Tablet by mouth 2 times a day with morning and evening meals. 180 Tablet 3 03/29/20 23 Active Fluticasone Propionate 50 MCG/ACT Nasal Suspension (Flonase)Indication s:Allergic rhinitis INSTILL 2 SPRAYS IN EACH NOSTRIL EVERY DAY 48 mL 1 07/12/19 24 Active Omeprazole 20 MG Oral Capsule Delayed Release (PriLOSEC)Indicatio ns:Nonobstructive atherosclerosis of coronary artery,HTN, goal below 140/90,Tachy-tripp syndrome (HCC),SVT (supraventricular tachycardia) (HCC),Presence of cardiac pacemaker,REANNA (obstructive sleep apnea) Take 1 Capsule by mouth in the morning and 1 Capsule in the evening. 180 Capsule 3 07/25/19 24 Active Tadalafil 5 MG Oral Tablet (Cialis) TAKE 1 TABLET BY MOUTH EVERY DAY NEEDED FOR ERECTILE DYSFUNCTION 30 Tablet 3 08/03/19 24 Active Potassium Chloride ER 20 MEQ Oral Tablet Extended ReleaseIndications: Balance problems Take 1 Tablet by mouth in the morning. 90 Tablet 3 04/30/19 23 024 Discontinued(Re fill) Mirabegron ER 25 MG Oral Tablet Extended Release 24 Hour (Myrbetriq) Take 1 Tablet by mouth in the morning. 30 Tablet 11 08/13/19 23 024 Discontinued Atorvastatin Calcium 40 MG Oral Tablet (Lipitor) TAKE 1 TABLET BY MOUTH EVERY MORNING 90 Tablet 3 09/02/19 23 024 Discontinued(Re fill) valACYclovir HCl 500 MG Oral Tablet (Valtrex)Indication s:Herpes simplex virus (HSV) infection TAKE 1 TABLET BY MOUTH EVERY DAY 90 Tablet 1 02/25/20 23 024 Discontinued(Re fill) Metaxalone 800 MG Oral Tablet Take 1 Tablet by mouth 2 times a day as needed for Pain, Severe. On an empty stomach 20 Tablet 0 08/06/19 24 024 Discontinued documented as of this encounter [...] enlargement 01/20/2018 REANNA on CPAP 02/08/2014 Overview: [employer]. Fax is [phone] Phone no is [phone] Labile hypertension 12/26/2011 Type 2 diabetes mellitus [...] NOS 08/02/2002 10/04/2003 Contusion of elbow 03/30/2002 Need for prophylactic vaccin ation and inoculation [...] mRNA, LNP-s, No Pre serve, 2-Dose Series ([employer]) 02/11/2021,06/15/2020,05/19/2020 COVID-19, MRNA-LNP, 23-24, P F, 30 MCG/0.3 mL, 12 YRS AND ABOVE, IM ([employer]ER-Comirnaty) 02/12/2023 Covid-19, Mrna, Lnp-s, Pf, B ivalent, 30 Mcg, IM, 12 yrs and above ([employer]) 01/10/2022 H1N1 2009 Influenza, IM 04/30/2009 Pneumococcal Conjugate Vacc, 13 Valent (Prevnar) 08/14/2015 Pneumococcal Polysaccharide PPV23 (Pneumovax) 10/27/2013,09/25/1997 RSV Vac., Bivalent, Perfusio n F, Pf,0.5 Ml (Abrysvo) 04/18/2023 Season Influenza, Cell Cultu re, 18+ Yrs, With Preserv (Flucelvax) 03/14/2013 Season Influenza, Quad, PF, Adjuvanted, 65+ Yrs, IM (FLUAD) 02/20/2020 Seasonal Influenza Virus Vac cine, Unspecified Formulation 02/05/1998 Seasonal Influenza, PF, 6 M & above, IM , (FluLaval or Fluzone) 01/31/2018 Seasonal Influenza, Quadriva lent Hd (Fluzone Hd) 02/12/2023,01/10/2022,02/14/2021 Seasonal Influenza, Quadriva lent, No Preserve, IM 01/12/2017,02/06/2016,01/19/2015 Seasonal Influenza, Split, I IV3, With Preserve, Inj 01/31/2014,01/16/2012,01/16/2011,01/23,02/08/2009,03/01/2008,01/28/2006 ,05/08/2004,03/30/2002,02/19/2001,07/1999,03/13/1999 Seasonal Influenza, Trivalen t, Adjuvanted, 65+ yrs 01/04/2019 TD - Tetanus/Diptheria [...] Progress Notes * Gigi Phillips MD - 08/17/2023 9:12 AM EDT Ann Joseph [id number] Ann Jospeh is a 77 year old male who presents for consultation to [facility] for left leg injury/pain. Consult requested by Self. Ann Joseph is here unaccompanied Quality: reviewed and agree with Nursing Notes for HPI elements History: History - -L knee -Pt is Diabetic with A1C of 7.0 -Pt denies injections or sx to L knee -Pt is unaccompanied today -Pt is RETIRED -Pt was treated and released at [facility] on Thursday08/15/23 --Pt c/o bruising of L Lower Extremity -referral by [facility] for Pt to f/u with ORTHO GW -Xray L knee at [facility] on 08/15/23 -Xray showed effusion and edema ROS: ROS per HPI otherwise non-contributory Past [...] goal of less than 7.0% ([facility]) 08/20/2010 ICD-10 update of inactive term Family History Problem Relation Age of Onset [...] level: Not on file Occupational History 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 Comment: [employer] Tobacco Use Smoking status: Former Current packs/day: [...] in the affected extremity(s) Knee Exam: left Significant ecchymosis in the mid to distal medial thigh and proximal lower leg Small knee effusion no warmth Full left knee range of motion no significant tenderness in the knee he is tender to palpate in themedial thigh and in the distal hamstring tendons No laxity of the knee pain with varus valgus stresses did have some pain with resisted knee flexion Radiology: The following studies were obtained at [...] and Plan: 1) Left lower extremity pain/ecchymosis Suspect medial hamstring strain, however, that is not certain. Patient is also on aspirin With limited unofficial diagnostic ultrasound patient has a small effusion - discussed aspiration but did not think that was mandatory as patient's symptoms are improving and effusion likely related to aggravation of underlying DJD/chrondrocalcinosis Have requested his full note from ER but did not have it as of his visit Reports he was tested for Lyme until that was negative Also discussed possibility of obtaining MRI but do not think that is necessary as once again he is improving. Patient was in agreement. Follow-up in 2-4 weeks at that time will re-evaluate consider aspiration of the knee and obtaining MRI if necessary He will cancel if doing well 09/02/2023: Update Received records from patient's [place] ER visit on 08/15/2023 Lab work including CBC, Lyme screen, was unremarkable Anaplasma and Babesia testing were still pending Gigi Phillips MD Primary Care Sports Medicine Orthopaedics [address] [address] documented in this encounter Nursing Notes * Ruby Tellez LPN - 08/17/2023 9:06 AM EDT -NEW Pt -L knee -Pt is Diabetic with A1C of 7.0 -Pt denies injections or sx to L knee -Pt is unaccompanied today -Pt is RETIRED -Pt was treated and released at [facility] on Thursday08/15/23 --Pt c/o bruising of L Lower Extremity -referral by [facility] for Pt to f/u with ORTHO GW -Xray L knee at [facility] on 08/15/23 -Xray showed effusion and edema Tana Randhawa LPN documented in this encounter Plan of Treatment Upcoming Encounters Date Type Department Care Team (Late st Contact Info) Description 2023 1:30 PM EDT Office Visit [facility] [address] [facility] [place] [address] Enrique Mcpherson MD [address] [facility] [place] [address] 10/02/2023 10:15 AM EDT Imaging Radiology [facility] 1st [facility] [address] [place] [address] 10/08/2023 2:30 PM EDT Office Visit Orthopaedics [facility] [address] [place] [address] Bennie Law, DO [address] [place] [address] 10/15/2023 10:00 AM EDT Cardiac Studies Cardiology, [facility] [address] [place] [address] [facility] [address] [place] [address] 12/17/2023 1:00 PM EDT Office Visit Family Practice [facility] [address] [place] [address] Tip Oliver, DO [address] [place] [address] 08/23/2024 11:30 AM EDT Office Visit Urology, [facility] [address] [place] [address] Anthony Foster MD [address] [place] [address] [place] [address] Scheduled Procedures [...] Primary documented in this encounter Care Teams Global President Relationship Specialty Start Date End Date Tip Oliver DO [address] [place] [address] PCP - General Family Medicine 07/19/20 documented as of this encounter
--- OUTSIDE RECORDS SUMMARY | 2023-11-06 23:28 | External Medical Summary | Summary of Care ---
Author Name Unknown Organization [facility] Address [address] [facility] [place] [address] Phone [phone] Care Team Providers Care Cloth Folder Machine Name Role Phone Tip Oliver Primary Care Provider Encounter Details Date Type Department Care Team (Late st Contact Info) Description 08/22/2023 Patient Reported Data Patient Survey Ortho OBERD Allergies Active Allergy Reactions Criticality Noted Date Comments Povidone Iodine 08/21/2021 Iodides Rash Medium 12/13/1998 Allergy to Betadine- Iodinated Contrast Media Itching 05/31/2018 Iodine Itching 04/06/2012 Amlodipine Besylate Edema Other High 08/12/2013 Severe edema of feet and lower legs Shellfish-Derived Products Rash High 2 documented as of this encounter (statuses as of 08/22/2023) Medications Medication Sig Dispensed Refills Start Date [...] use: lifetime. 300 Strip 3 01/04/2013 Active [place]-3 Fatty Acids (FISH OIL) 1360 MG CAPS [...] QWEEK,Indications: on fridays, Reported on 12/11/2022 Ipratropium [place] 0.03 % Nasal Solution (Atrovent) Administer 2 [...] the morning. 90 Tablet 3 01/19/2023 Active valACYclovir HCl 500 MG Oral Tablet (Valtrex)Indications :Herpes simplex virus (HSV) infection TAKE 1 TABLET BY MOUTH EVERY DAY 90 Tablet 1 02/24/2023 Active Losartan Potassium 50 MG Oral Tablet [...] the morning. 30 Tablet 6 08/19/2023 Active Potassium Chloride ER 20 MEQ Oral Tablet Extended ReleaseIndications:B alance problems Take 1 Tablet by mouth in the morning. 90 Tablet 3 08/21/2023 Active Atorvastatin Calcium 40 MG Oral Tablet (Lipitor) Take 1 Tablet by mouth at bedtime. In the morning. 90 Tablet 3 08/22/2023 Active documented as of this encounter (statuses as of 08/22/2023) Active Problems Problem Noted Date Diagnosed Date [...] enlargement 01/20/2018 REANNA on CPAP 02/08/2014 Overview: [employer]. Fax is [phone] Phone no is [phone] Labile hypertension 12/26/2011 Type 2 diabetes mellitus [...] as of this encounter (statuses as of 08/22/2023) Resolved Problems Problem Noted Date Diagnosed Date [...] as of this encounter (statuses as of 08/22/2023) Immunizations Name Administration Dates Next Due COVID-19 mRNA, LNP-s, No Pre serve, 2-Dose Series ([employer]) 02/11/2021,06/15/2020,05/19/2020 COVID-19, MRNA-LNP, 23-24, P F, 30 MCG/0.3 mL, 12 YRS AND ABOVE, IM ([employer] [place]) 02/12/2023 Covid-19, Mrna, Lnp-s, Pf, B ivalent, [...] 3:20 PM EDT Office Visit Family Practice [facility] [address] [place] [address] Kal Ray CRNP [address] [place] [address] 09/01/2023 2:45 PM EDT Office Visit Orthopaedics [facility] [address] [place] [address] Gus Daly DO [address] [place] [address] 09/08/2023 2:30 PM EDT Office Visit Orthopaedics [facility] [address] [place] [address] Gigi Phillips MD [address] [place] [address] 2023 1:30 PM EDT Office Visit Allergy/Immunology [facility] [address] [place] [address] Enrique Mcpherson MD [address] [facility] [place] [address] 10/02/2023 10:15 AM EDT Imaging Radiology [facility] 1st [facility] [address] [facility] [place] [address] 10/15/2023 10:00 AM EDT Cardiac Studies Cardiology, [facility] [address] [facility] [place] [address] [facility] [address] [place] [address] 12/17/2023 1:00 PM EDT Office Visit Family Practice [facility] [address] [place] [address] Tip Oliver DO [address] [place] [address] 08/23/2024 11:30 AM EDT Office Visit Urology, [facility] 132 [facility] [place] [address] Anthony Foster MD [address] [facility] [place] [address] [place] [address] Scheduled Procedures [...] filedocumented as of this encounter Care Teams Cloth Folder Machine Relationship Specialty Start Date End Date Tip Oliver DO [address] [place] [address] PCP - General Family Medicine 07/19/20 documented as of this encounter
--- OUTSIDE RECORDS SUMMARY | 2023-11-06 23:28 | External Medical Summary | Summary of Care ---
Author Name Unknown Organization [facility] Address [address] [facility] [place] [address] Phone [phone] Care Team Providers Care Upholsterer Apprentice Name Role Phone Tip Oliver Primary Care Provider Reason for Visit * Reason Onset Date Comments Medication Refill 08/21/2023 Encounter Details Date Type Department Care Team (Late st Contact Info) Description 08/21/2023 Refill Dermatology [facility] [place] [address] [facility] [place] [address] Asya Mulligan PA-C [address] [place] [address] [place] [address] Herpes simplex virus (HSV) infection Allergies Active Allergy Reactions Criticality Noted Date Comments Povidone Iodine 08/21/2021 Iodides Rash Medium 12/13/1998 Allergy to Betadine- Iodinated Contrast Media Itching 05/31/2018 Iodine Itching 04/06/2012 Amlodipine Besylate Edema Other High 08/12/2013 Severe edema of feet and lower legs Shellfish-Derived Products Rash High 2 documented as of this encounter (statuses as of 08/24/2023) Medications Medication Sig Dispensed Refills Start Date [...] use: lifetime. 300 Strip 3 3 Active [place]-3 Fatty Acids (FISH OIL) 1360 MG CAPS [...] QWEEK,Indications: on fridays, Reported on 12/11/2022 Ipratropium [place] 0.03 % Nasal Solution (Atrovent) Administer 2 Sprays into nostril in the morning and 2 Sprays at noon and 2 Sprays before bedtime. 30 mL 6 3 Active Carvedilol 25 MG Oral Tablet (Coreg)Indications:S VT (supraventricular tachycardia) (HCC) TAKE 1 TABLET BY MOUTH EVERY MORNING AND TAKE 1 TABLET BEFORE BEDTIME 180 Tablet 3 3 Active Tamsulosin HCl 0.4 MG Oral [...] EVERY DAY 90 Tablet 1 4 Active valACYclovir HCl 500 MG Oral Tablet (Valtrex)Indications :Herpes simplex virus (HSV) infection TAKE 1 TABLET BY MOUTH EVERY DAY 90 Tablet 1 3 08/21/19 24 Discontinu ed(Refill) documented as of this encounter (statuses as of 08/24/2023) Active Problems Problem Noted Date Diagnosed Date [...] enlargement 01/20/2018 REANNA on CPAP 02/08/2014 Overview: [employer]. Fax is [phone] Phone no is [phone] Labile hypertension 12/26/2011 Type 2 diabetes mellitus [...] as of this encounter (statuses as of 08/24/2023) Resolved Problems Problem Noted Date Diagnosed Date [...] update of inactive term OCCUP CIRCUMSTANCES NEC 09/17/2000/12/2003 Chest pain 09/06/1999 10/04/2003 Abdominal pain, generalized [...] as of this encounter (statuses as of 08/24/2023) Immunizations Name Administration Dates Next Due COVID-19 mRNA, LNP-s, No Pre serve, 2-Dose Series ([employer]) 02/11/2021,06/15/2020,05/19/2020 COVID-19, MRNA-LNP, 23-24, P F, 30 MCG/0.3 mL, 12 YRS AND ABOVE, IM ([facility]) 02/12/2023 Covid-19, Mrna, Lnp-s, Pf, B ivalent, [...] encounter Miscellaneous Notes * Telephone Encounter - Asya Mulligan PA-C - 08/24/2023 10:31 AM EDT Signed Prescriptions: Disp Refills valACYclovir HCl 500 MG Oral Tablet (Valtr*90 Tab*1 Sig: TAKE 1 TABLET BY MOUTH EVERY DAYAuthorizing Provider: ASYA MULLIGAN documented in this encounter Plan of Treatment Upcoming Encounters Date Type Department Care Team (Late st Contact Info) Description 08/31/2023 3:20 PM EDT Office Visit Family Practice [facility] [address] [place] [address] Kal Ray CRNP [address] [place] [address] 09/01/2023 2:45 PM EDT Office Visit Orthopaedics [facility] [address] [place] [address] Gus Daly DO [address] [place] [address] 09/08/2023 2:30 PM EDT Office Visit Orthopaedics [facility] [address] [place] [address] Gigi Phillips MD [address] [place] [address] 2023 1:30 PM EDT Office Visit Allergy[facility]Immun[facility] [address] [place] [address] Enrique Mcpherson MD [address] [place] [address] 10/02/2023 10:15 AM EDT Imaging Radiology [facility] 1st [facility] [address] [place] [address] 10/15/2023 10:00 AM EDT Cardiac Studies Cardiology, [facility] [address] [facility] [place] [address] [facility] [address] [facility] [place] [address] 12/17/2023 1:00 PM EDT Office Visit Family Practice [facility] [place] [address] Tip Oliver DO [address] [place] [address] 08/23/2024 11:30 AM EDT Office Visit Urology, [facility] [address] [place] [address] Anthony Foster MD [address] [facility] [address] [place] [id number] Scheduled Procedures Name Priority Associated Diagnoses Date/Ti [...] 05/28/2021, Additional history exists B-12 06/15/2024 06/15/2023, 08/07/2022, 10/16/2021, Additional history exists GFR 06/15/2024 06/15/2023, [...] as of this encounter Visit Diagnoses Diagnosis Herpes simplex virus (HSV) infection documented in this encounter Care Teams Upholsterer Apprentice Relationship Specialty Start Date End Date Tip Oliver DO [address] [place] [address] PCP - General Family Medicine 07/19/20 documented as of this encounter
--- OUTSIDE RECORDS SUMMARY | 2023-11-06 23:28 | External Medical Summary | Summary of Care ---
Author Name Unknown Organization [facility] Address [address] [facility] [place] [address] Phone [phone] Care Team Providers Care Customer Agent Name Role Phone Tip Oliver Primary [...] use: lifetime. 300 Strip 3 01/04/2013 Active [place]-3 Fatty Acids (FISH OIL) 1360 MG CAPS [...] QWEEK,Indications: on fridays, Reported on 12/11/2022 Ipratropium [place] 0.03 % Nasal Solution (Atrovent) Administer 2 [...] enlargement 01/20/2018 REANNA on CPAP 02/08/2014 Overview: [employer] Fax is [phone] Phone no is [phone] Labile hypertension 12/26/2011 Type 2 diabetes mellitus [...] mRNA, LNP-s, No Pre serve, 2-Dose Series ([employer]) 02/11/2021,06/15/2020,05/19/2020 COVID-19, MRNA-LNP, 23-24, P F, 30 MCG/0.3 mL, 12 YRS AND ABOVE, IM ([employer]) 02/12/2023 Covid-19, Mrna, Lnp-s, Pf, B ivalent, [...] PM EDT Office Visit Family Practice [facility] [address] [place] [address] Kal Ray CRNP [address] [place] [address] 09/01/2023 2:45 PM EDT Office Visit Orthopaedics [facility] [address] [place] [address] Gus Daly DO [address] [place] [address] 09/08/2023 2:30 PM EDT Office Visit Orthopaedics [facility] [address] [place] [address] Gigi Phillips MD [address] [place] [address] 2023 1:30 PM EDT Office Visit Allergy/Immunology [facility] [address] [place] [address] Enrique Mcpherson MD 200 [facility] [place] [address] 10/02/2023 10:15 AM EDT Imaging Radiology [facility] 1st [facility] [address] [facility] [place] [address] 10/15/2023 10:00 AM EDT Cardiac Studies Cardiology, [facility] [address] [facility] [place] [address] [facility] [address] [place] [address] 12/17/2023 1:00 PM EDT Office Visit Family Practice [facility] [address] [place] [address] Tip Oliver DO [address] [place] [address] 08/23/2024 11:30 AM EDT Office Visit Urology, [facility] 132 [facility] [place] [address] Anthony Foster MD 27 [facility] [place] [address] [place] [address] Scheduled [...] as of this encounter Care Teams Customer Agent Relationship Specialty Start Date End Date Tip Oliver DO [address] [place] [address] PCP - General Family Medicine 07/19/20 documented as of this encounter
--- OUTSIDE RECORDS SUMMARY | 2023-11-06 23:28 | External Medical Summary | Summary of Care ---
Author Name Unknown Organization [facility] Address [address] [facility] [place] [address] Phone [phone] Care Team Providers Care Flame Hardener Name Role Phone Tip Oliver Primary Care [...] use: lifetime. 300 Strip 3 01/04/2013 Active [place]-3 Fatty Acids (FISH OIL) 1360 MG CAPS [...] QWEEK,Indications: on fridays, Reported on 12/11/2022 Ipratropium [place] 0.03 % Nasal Solution (Atrovent) Administer 2 [...] below 140/90,Presence of cardiac pacemaker,SVT (supraventricular tachycardia) (HCC),REANAN (obstructive sleep apnea) Take 1 Tablet by [...] enlargement 01/20/2018 REANNA on CPAP 02/08/2014 Overview: [employer]. Fax is [phone] Phone no is [phone] Labile hypertension 12/26/2011 Type 2 diabetes mellitus [...] mRNA, LNP-s, No Pre serve, 2-Dose Series (Inviragen) 02/11/2021,06/15/2020,05/19/2020 COVID-19, MRNA-LNP, 23-24, P F, 30 MCG/0.3 mL, 12 YRS AND ABOVE, IM (YeHive-ComirnatWoozworld) 02/12/2023 Covid-19, Mrna, Lnp-s, Pf, B ivalent, [...] 3:20 PM EDT Office Visit Family Practice [facility] [address] [place] [address] [address] Kal Ray CRNP [address] [place] [address] 09/01/2023 2:45 PM EDT Office Visit Orthopaedics [facility] [address] [place] [address] Gus Daly DO [address] [place] [address] 09/08/2023 2:30 PM EDT Office Visit Orthopaedics [facility] [address] [place] [address] Gigi Phillips MD [address] [place] [address] 2023 1:30 PM EDT Office Visit Allergy/Immunology [facility] [address] [place] [address] Enrique Mcpherson MD 200 [facility] [place] [address] 10/02/2023 10:15 AM EDT Imaging Radiology [facility]st [facility] 132 [facility] [place] [address] 10/15/2023 10:00 AM EDT Cardiac Studies Cardiology, [facility] 132 [facility] [place] [address] [facility] [address] [place] [address] 12/17/2023 1:00 PM EDT Office Visit Family Practice [facility] [address] [place] [address] Tip Oliver DO [address] [place] [address] 08/23/2024 11:30 AM EDT Office Visit Urology, [facility] 132 [facility] [place] [address] Anthony Foster MD 27 [facility] [address] [place] [address] Scheduled [...] filedocumented as of this encounter Care Teams Flame Hardener Relationship Specialty Start Date End Date Tip Oliver DO [address] [place] [address] PCP - General Family Medicine 07/19/20 documented as of this encounter
--- OUTSIDE RECORDS SUMMARY | 2023-11-06 23:28 | External Medical Summary | Summary of Care ---
Author Name Unknown Organization [facility] Address [address] [facility] [place] [address] Phone [phone] Care Team Providers Care Pupil Personnel Worker Name Role Phone Tip Oliver Primary [...] use: lifetime. 300 Strip 3 01/04/2013 Active [place]-3 Fatty Acids (FISH OIL) 1360 MG CAPS [...] QWEEK,Indications: on fridays, Reported on 12/11/2022 Ipratropium [place] 0.03 % Nasal Solution (Atrovent) Administer 2 [...] enlargement 01/20/2018 REANNA on CPAP 02/08/2014 Overview: [employer] [place]. Fax is [phone] Phone no is [phone] Labile hypertension 12/26/2011 Type 2 diabetes mellitus [...] mRNA, LNP-s, No Pre serve, 2-Dose Series ([employer]) 02/11/2021,06/15/2020,05/19/2020 COVID-19, MRNA-LNP, 23-24, P F, 30 MCG/0.3 mL, 12 YRS AND ABOVE, IM (Camping and Co-ComirnatImmusanT) 02/12/2023 Covid-19, Mrna, Lnp-s, Pf, B ivalent, [...] 3:20 PM EDT Office Visit Family Practice [facility] [address] [place] [address] [address] Kal Ray CRNP [address] [place] [address] 09/01/2023 2:45 PM EDT Office Visit Orthopaedics [facility] [address] [place] [address] Gus Daly DO [address] [place] [address] 09/08/2023 2:30 PM EDT Office Visit Orthopaedics [facility] [address] [place] [address] Gigi Phillips MD [address] [place] [address] 2023 1:30 PM EDT Office Visit Allergy/Immunology [facility] [address] [place] [address] Enrique Mcpherson MD 200 [facility] [place] [address] 10/02/2023 10:15 AM EDT Imaging Radiology [facility]st [facility] 132 [facility] [place] [address] 10/15/2023 10:00 AM EDT Cardiac Studies Cardiology, [facility] 132 [facility] [place] [address] [facility] [address] [place] [address] 12/17/2023 1:00 PM EDT Office Visit Family Practice [facility] [address] [place] [address] Tip Oliver DO [address] [place] [address] 08/23/2024 11:30 AM EDT Office Visit Urology, [facility] 132 [facility] [place] [address] Anthony Foster MD [address] [facility] [...] filedocumented as of this encounter Care Teams Pupil Personnel Worker Relationship Specialty Start Date End Date Tip Oliver DO [address] [place] [address] PCP - General Family Medicine 07/19/20 documented as of this encounter
--- OUTSIDE RECORDS SUMMARY | 2023-11-06 23:28 | External Medical Summary | Summary of Care ---
Author Name Unknown Organization [facility] Address [address] [facility] [place] [address] Phone [phone] Care Team Providers Care Gasoline Plant Operator Name Role Phone Tip Oliver DO Primary Care Provider Reason for Visit * Reason Comments eRx-Medication Refill Encounter Details Date Type Department Care Team (Late st Contact Info) Description 08/20/2023 Refill Dermatology [facility] [address] [place] [address] Brittany Oliver MD [address] [place] [address] Allergies Active Allergy Reactions Criticality Noted Date [...] lifetime. 300 Strip 3 01/05/20 13 Active [place]-3 Fatty Acids (FISH OIL) 1360 MG CAPS [...] QWEEK,Indications: on fridays, Reported on 12/11/2022 Ipratropium [place] 0.03 % Nasal Solution (Atrovent) Administer 2 [...] morning. 90 Tablet 3 01/20/20 23 Active valACYclovir HCl 500 MG Oral Tablet (Valtrex)Indication s:Herpes simplex virus (HSV) infection TAKE 1 TABLET BY MOUTH EVERY DAY 90 Tablet 1 02/25/20 23 Active Losartan Potassium 50 MG Oral [...] DYSFUNCTION 30 Tablet 3 08/03/19 24 Active oxyBUTYnin Chloride ER 10 MG Oral Tablet Extended Release 24 Hour Take 1 Tablet by mouth in the morning. 30 Tablet 6 08/19/19 24 Active Atorvastatin Calcium 40 MG Oral Tablet (Lipitor) Take 1 Tablet by mouth at bedtime. In the morning. 90 Tablet 3 08/22/19 24 Active Potassium Chloride ER 20 MEQ Oral Tablet Extended ReleaseIndications: Balance problems Take 1 Tablet by mouth in the morning. 90 Tablet 3 04/30/19 23 024 Discontinued(Re fill) Atorvastatin Calcium 40 MG Oral Tablet (Lipitor) TAKE 1 TABLET BY MOUTH EVERY MORNING 90 Tablet 3 09/02/19 23 024 Discontinued(Re fill) Metaxalone 800 MG [...] enlargement 01/20/2018 REANNA on CPAP 02/08/2014 Overview: [employer]. Fax is [phone] Phone no is [phone] Labile hypertension 12/26/2011 Type 2 diabetes mellitus [...] mRNA, LNP-s, No Pre serve, 2-Dose Series ([employer]) 02/11/2021,06/15/2020,05/19/2020 COVID-19, MRNA-LNP, 23-24, P F, 30 MCG/0.3 mL, 12 YRS AND ABOVE, IM ([employer] [place] [employer]-Comirnaty) 02/12/2023 Covid-19, Mrna, Lnp-s, Pf, B ivalent, [...] encounter Miscellaneous Notes * Telephone Encounter - Chip Luz LPN - 08/20/2023 8:21 AM EDTRefused Prescriptions: Disp Refills Atorvastatin Calcium 40 MG Oral Tablet (Li*90 Tab*3 Sig: TAKE 1TABLET BY MOUTH EVERY MORNINGRefused By: CHIP LUZ for Refusal: Managed by another p hysician documented in this encounter Plan of Treatment Upcoming Encounters Date Type Department Care Team (Late st Contact Info) Description 08/31/2023 3:20 PM EDT Office Visit Family Practice [facility] [address] [place] [address] Kal Ray CRNP [address] [place] [address] 09/01/2023 2:45 PM EDT Office Visit Orthopaedics [facility] [address] [place] [address] Gus Daly DO [address] [place] [address] 09/08/2023 2:30 PM EDT Office Visit Orthopaedics [facility] [address] [place] [address] Gigi Phillips MD [address] [place] [address] 2023 1:30 PM EDT Office Visit Allergy/Immunology [facility] 200 [facility] [place] [address] Enrique Mcpherson MD 200 [facility] [place] [address] 10/02/2023 10:15 AM EDT Imaging Radiology [facility] 1st [facility] 132 [facility] [place] [address] 10/15/2023 10:00 AM EDT Cardiac Studies Cardiology, [facility] 132 [facility] [place] [address] [address] [facility] 132 [facility] [place] [address] 12/17/2023 1:00 PM EDT Office Visit Family Practice [facility] 132 [facility] [place] [address] Tip Oliver DO 132 [facility] [place] [address] 08/23/2024 11:30 AM EDT Office Visit Urology, [facility] 132 [facility] [place] [address] Anthony Foster MD 27 [facility] [address] [place] [address] Scheduled Procedures Name Priority Associated Diagnoses Date/Ti [...] filedocumented as of this encounter Care Teams Gasoline Plant Operator Relationship Specialty Start Date End Date Tip Oliver DO [address] [place] [address] PCP - General Family Medicine 07/19/20 documented as of this encounter
--- OUTSIDE RECORDS SUMMARY | 2023-11-06 23:28 | External Medical Summary | Summary of Care ---
Author Name Unknown Organization [facility] Address [address] [facility] [place] [address] Phone [phone] Care Team Providers Care Tree Feller Operator Name Role Phone Tip Oliver Primary [...] use: lifetime. 300 Strip 3 01/04/2013 Active [place]-3 Fatty Acids (FISH OIL) 1360 MG CAPS [...] QWEEK,Indications: on fridays, Reported on 12/11/2022 Ipratropium [place] 0.03 % Nasal Solution (Atrovent) Administer 2 [...] enlargement 01/20/2018 REANNA on CPAP 02/08/2014 Overview: [employer]. Fax is [phone] Phone no is [phone] Labile hypertension 12/26/2011 Type 2 diabetes mellitus [...] mRNA, LNP-s, No Pre serve, 2-Dose Series ([employer]) 02/11/2021,06/15/2020,05/19/2020 COVID-19, MRNA-LNP, 23-24, P F, 30 MCG/0.3 mL, 12 YRS AND ABOVE, IM ([employer] Games-ComirnatCaptivate Network) 02/12/2023 Covid-19, Mrna, Lnp-s, Pf, B ivalent, [...] 3:20 PM EDT Office Visit Family Practice [facility] [address] [place] [address] [address] Kal Ray CRNP [address] [place] [address] 09/01/2023 2:45 PM EDT Office Visit Orthopaedics [facility] [address] [place] [address] Gus Daly DO [address] [place] [address] 09/08/2023 2:30 PM EDT Office Visit Orthopaedics [facility] [address] [place] [address] Gigi Phillips MD [address] [place] [address] 2023 1:30 PM EDT Office Visit Allergy/Immunology [facility] [address] [place] [address] Enrique Mcpherson MD 200 [facility] [place] [address] 10/02/2023 10:15 AM EDT Imaging Radiology [facility] 1st [facility] 132 [facility] [place] [address] 10/15/2023 10:00 AM EDT Cardiac Studies Cardiology, [facility] 132 [facility] [place] [address] [facility] [address] [place] [address] 12/17/2023 1:00 PM EDT Office Visit Family Practice [facility] [address] [place] [address] Tip Oliver DO [address] [place] [address] 08/23/2024 11:30 AM EDT Office Visit Urology, [facility] 132 [facility] [place] [address] Anthony Foster MD 27 [facility] [address] [place] [address] [...] filedocumented as of this encounter Care Teams Tree Feller Operator Relationship Specialty Start Date End Date Tip Oliver DO [address] [place] [address] PCP - General Family Medicine 07/19/20 documented as of this encounter
--- OUTSIDE RECORDS SUMMARY | 2023-11-06 23:28 | External Medical Summary | Summary of Care ---
Author Name Unknown Organization [facility] Address [address] [facility] [place] [address] Phone [phone] Care Team Providers Care Tie Presser Name Role Phone Tip Oliver Primary Care Provider Reason for Visit * Reason Onset Date Comments Medication Refill 08/20/2023 Encounter Details Date Type Department Care Team (Late st Contact Info) Description 08/20/2023 Refill Family Practice [facility] [address] [place] [address] Leona Ruiz CRNP [address] [place] [address] Nonobstructive atherosclerosis of coronary artery; HTN, goal below 140/90; Tachy-tripp syndrome (HCC); SVT (supraventricular tachycardia) (HCC); Presence of cardiac pacemaker; REANNA (obstructive sleep apnea) Allergies Active Allergy Reactions Criticality Noted Date Comments Povidone Iodine 08/21/2021 Iodides Rash Medium 12/13/1998 Allergy to Betadine- Iodinated Contrast Media Itching 05/31/2018 Iodine Itching 04/06/2012 Amlodipine Besylate Edema Other High 08/12/2013 Severe edema of feet and lower legs Shellfish-Derived Products Rash High 2 documented as of this encounter (statuses as of 08/21/2023) Medications Medication Sig Dispensed Refills Start Date [...] use: lifetime. 300 Strip 3 01/04/2013 Active Boz[place]-3 Fatty Acids (FISH OIL) 1360 MG CAPS [...] Sulfate ER) Take by mouth. 0 Active Atorvastatin Calcium 40 MG Oral Tablet (Lipitor) TAKE 1 TABLET BY MOUTH EVERY MORNING 90 Tablet 3 09/01/2022 Active Additional Information Patient taking differently: Indications: at lunchtime, Reported on 12/11/2022 Ozempic (2 MG/DOSE) 8 MG/3ML Subcutaneous Solution Pen-injector (Semaglutide (2 MG/DOSE)) Inject 0.75 mL under the skin once a week. 3 mL 5 09/18/2022 Active Additional Information Patient taking differently:2 mg Subcutaneous QWEEK,Indications: on fridays, Reported on 12/11/2022 Ipratropium [place] 0.03 % Nasal Solution (Atrovent) Administer 2 [...] ERECTILE DYSFUNCTION 30 Tablet 3 08/03/2023 Active Metaxalone 800 MG Oral Tablet Take 1 Tablet by mouth 2 times a day as needed for Pain, Severe. On an empty stomach 20 Tablet 0 08/06/2023 Active oxyBUTYnin Chloride ER 10 MG Oral Tablet Extended Release 24 Hour Take 1 Tablet by mouth in the morning. 30 Tablet 6 08/19/2023 Active documented as of this encounter (statuses as of 08/21/2023) Active Problems Problem Noted Date Diagnosed Date [...] enlargement 01/20/2018 REANNA on CPAP 02/08/2014 Overview: [employer]. Fax is [phone] Phone no is [phone] Labile hypertension 12/26/2011 Type 2 diabetes mellitus [...] as of this encounter (statuses as of 08/21/2023) Resolved Problems Problem Noted Date Diagnosed Date [...] as of this encounter (statuses as of 08/21/2023) Immunizations Name Administration Dates Next Due COVID-19 mRNA, LNP-s, No Pre serve, 2-Dose Series ([employer]) 02/11/2021,06/15/2020,05/19/2020 COVID-19, MRNA-LNP, 23-24, P F, 30 MCG/0.3 mL, 12 YRS AND ABOVE, IM (ForeSee-Comirnaty) 02/12/2023 Covid-19, Mrna, Lnp-s, Pf, B ivalent, [...] encounter Miscellaneous Notes * Telephone Encounter - Tee Zarate RPh - 08/21/2023 3:22 PM EDT Refused Prescriptions: Disp Refills Omeprazole 20 MG Oral Capsule Delayed Rele*180 Ca*3 Sig: Take 1 Capsule by mouth in the morning and 1 Capsule in the evening.Refused By: TEE ZARATE for Refusal: Duplicate Request documented in this encounter Plan of Treatment Upcoming Encounters Date Type Department Care Team (Late st Contact Info) Description 08/31/2023 3:20 PM EDT Office Visit Family Practice [facility] [address] [place] [address] Kal Ray CRNP [address] [place] [address] 09/01/2023 2:45 PM EDT Office Visit Orthopaedics [facility] [address] [place] [address] Gus Daly DO [address] [place] [address] 09/08/2023 2:30 PM EDT Office Visit Orthopaedics [facility] [address] [place] [address] Gigi Phillips MD [address] [place] [address] 2023 1:30 PM EDT Office [facility] [place] [address] Enrique Mcpherson MD 200 [facility] [place] [address] 10/02/2023 10:15 AM EDT Imaging Radiology [facility]st [facility] [place] [address] 10/15/2023 10:00 AM EDT Cardiac Studies Cardiology, [facility] 132 [facility] [place] [address] [facility] 132 [facility] [place] [address] 12/17/2023 1:00 PM EDT Office Visit Family Practice [facility] 132 [facility] [place] [address] Tip Oliver DO 132 [facility] [place] [address] 08/23/2024 11:30 AM EDT Office Visit Urology, [facility] 132 [facility] [place] [address] Anthony Foster MD 27 [facility] [address] [place] [address] Scheduled Procedures Name Priority Associated Diagnoses Date/Ti [...] as of this encounter Visit Diagnoses Diagnosis Nonobstructive atherosclerosis of coronary artery HTN, goal below 140/90 Unspecified essential hypertension Tachy-tripp syndrome (HCC) Sinoatrial node dysfunction SVT (supraventricular tachycardia) (HCC) Other specified cardiac dysrhythmias Presence of cardiac pacemaker Cardiac pacemaker in situ REANNA (obstructive sleep apnea) Obstructive sleep apnea (adult) (pediatric) documented in this encounter Care Teams Tie Presser Relationship Specialty Start Date End Date Tip Oliver DO 132 [facility] [place] [address] PCP - General Family Medicine 07/19/20 documented as of this encounter
--- OUTSIDE RECORDS SUMMARY | 2023-11-06 23:28 | External Medical Summary | Summary of Care ---
Author Name Unknown Organization [facility] Address [address] [facility] [place] [address] Phone [phone] Care Team Providers Care Medical Billing Coordinator Name Role Phone Tip Oliver Primary [...] use: lifetime. 300 Strip 3 01/04/2013 Active [place]-3 Fatty Acids (FISH OIL) 1360 MG CAPS [...] QWEEK,Indications: on fridays, Reported on 12/11/2022 Ipratropium [place] 0.03 % Nasal Solution (Atrovent) Administer 2 [...] enlargement 01/20/2018 REANNA on CPAP 02/08/2014 Overview: [employer]. Fax is [phone] Phone no is [phone] Labile hypertension 12/26/2011 Type 2 diabetes mellitus [...] mRNA, LNP-s, No Pre serve, 2-Dose Series ([employer] 02/11/2021,06/15/2020,05/19/2020 COVID-19, MRNA-LNP, 23-24, P F, 30 MCG/0.3 mL, 12 YRS AND ABOVE, IM (Keegy-ComirnatFor Your Imagination) 02/12/2023 Covid-19, Mrna, Lnp-s, Pf, B ivalent, [...] 3:20 PM EDT Office Visit Family Practice [facility] [address] [place] [address] [address] Kal Ray CRNP [address] [place] [address] 09/01/2023 2:45 PM EDT Office Visit Orthopaedics [facility] [address] [place] [address] Gus Daly DO [address] [place] [address] 09/08/2023 2:30 PM EDT Office Visit Orthopaedics [facility] [address] [place] [address] Gigi Phillips MD [address] [place] [address] 2023 1:30 PM EDT Office Visit Allergy/Immunology [facility] [address] [place] [address] Enrique Mcpherson MD 200 [facility] [place] [address] 10/02/2023 10:15 AM EDT Imaging Radiology [facility]st [facility] [place] [address] 10/15/2023 10:00 AM EDT Cardiac Studies Cardiology, [facility] [address] [facility] [place] [address] [facility] [address] [place] [address] 12/17/2023 1:00 PM EDT Office Visit Family Practice [facility] [address] [place] [address] Tip Oliver DO [address] [place] [address] 08/23/2024 11:30 AM EDT Office Visit Urology, [facility] 132 [facility] [place] [address] Anthony Foster MD 27 [facility] [place] [address] [place] [address] Scheduled [...] filedocumented as of this encounter Care Teams Medical Billing Coordinator Relationship Specialty Start Date End Date Tip Oliver DO [address] [place] [address] PCP - General Family Medicine 07/19/20 documented as of this encounter
--- OUTSIDE RECORDS SUMMARY | 2023-11-06 23:28 | External Medical Summary | Summary of Care ---
Author Name Unknown Organization [facility] Address [address] [facility] [place] [address] Phone [phone] Care Team Providers Care Sail Finisher Hand Name Role Phone Tip Oliver Primary Care Provider Reason for Visit * Reason Onset Date Comments Medication Refill 08/21/2023 Encounter Details Date Type Department Care Team (Late st Contact Info) Description 08/21/2023 Refill Cardiology, [facility] [address] [place] [address] Stormy Chan CRNP [address] [place] [address] Balance problems Allergies Active Allergy Reactions Criticality [...] use: lifetime. 300 Strip 3 3 Active [place]-3 Fatty Acids (FISH OIL) 1360 MG CAPS [...] EVERY MORNING 90 Tablet 3 3 Active Additional Information Patient taking differently: Indications: at lunchtime, Reported on 12/11/2022 Ozempic (2 MG/DOSE) 8 MG/3ML Subcutaneous Solution Pen-injector (Semaglutide (2 MG/DOSE)) Inject 0.75 mL under the skin once a week. 3 mL 5 3 Active Additional Information Patient taking differently:2 mg Subcutaneous QWEEK,Indications: on fridays, Reported on 12/11/2022 Ipratropium [place] 0.03 % Nasal Solution (Atrovent) Administer 2 [...] the morning. 90 Tablet 3 3 Active valACYclovir HCl 500 MG Oral Tablet (Valtrex)Indications :Herpes simplex virus (HSV) infection TAKE 1 TABLET BY MOUTH EVERY DAY 90 Tablet 1 3 Active Losartan Potassium 50 MG Oral [...] ERECTILE DYSFUNCTION 30 Tablet 3 4 Active Metaxalone 800 MG Oral Tablet Take 1 Tablet by mouth 2 times a day as needed for Pain, Severe. On an empty stomach 20 Tablet 0 4 Active oxyBUTYnin Chloride ER 10 MG Oral Tablet Extended Release 24 Hour Take 1 Tablet by mouth in the morning. 30 Tablet 6 4 Active Potassium Chloride ER 20 MEQ Oral Tablet Extended ReleaseIndications:B alance problems Take 1 Tablet by mouth in the morning. 90 Tablet 3 4 Active Potassium Chloride ER 20 MEQ Oral Tablet Extended ReleaseIndications:B alance problems Take 1 Tablet by mouth in the morning. 90 Tablet 3 3 08/21/19 24 Discontinu ed(Refill) documented as [...] enlargement 01/20/2018 REANNA on CPAP 02/08/2014 Overview: [employer]. Fax is [phone] Phone no is [phone] Labile hypertension 12/26/2011 Type 2 diabetes mellitus [...] mRNA, LNP-s, No Pre serve, 2-Dose Series ([employer]) 02/11/2021,06/15/2020,05/19/2020 COVID-19, MRNA-LNP, 23-24, P F, 30 MCG/0.3 mL, 12 YRS AND ABOVE, IM ([employer]-Comirnaty) 02/12/2023 Covid-19, Mrna, Lnp-s, Pf, B ivalent, 30 Mcg, IM, 12 yrs and above ([employer]) 01/10/2022 H1N1 2009 Influenza, IM 04/30/2009 Pneumococcal [...] encounter Miscellaneous Notes * Telephone Encounter - Charleen Pena CRNP - 08/21/2023 2:43 PM EDT Signed Prescriptions: Disp Refills Potassium Chloride ER 20 MEQ Oral Tablet E*90 Tab*3 Sig: Take 1 Tablet by mouth in the morning. Authorizing Provider: CHARLEEN PENA * Telephone Encounter - Sendy Camarillo CMA - 08/21/2023 2:29 PM EDTPending Prescriptions: Disp Refills Potassium Chloride ER 20 MEQ Oral Tablet E*90 Tab*3 Sig: Take 1 Tablet by mouth in the morning. * Telephone Encounter - Sendy Camarillo CMA - 08/21/2023 2:28 PM EDT Did you pend patient's preferred pharmacy and medication before forwarding?yes Pharmacy: [id number] [place] [address] Pending Prescriptions: Disp Refills Potassium Chloride ER 20 MEQ Oral Tablet *90 Tab*3 Sig: Take 1 Tablet by mouth in the morning. Last Visit: 12/17/2022 (in office), 08/15/2019 (telemedicine) Next Visit: 10/15/2023 If no future appointments scheduled, and last appointment is greater than a year ago, please schedule patient for a follow-up appointment Last date the medication was ordered: 04-30-2022 Is this request for a controlled substance?No Urine Drug Screen: Results for orders placed or performed in visit on 05/28/21 TOXICOLOGY, URINE SCREEN W/ CONFIRMATION Result Value Amphetamines Screen, U Negative Benzodiazepines Screen, U Negative Cannabinoids Screen, U Negative Cocaine Metabolite Screen, U Negative Hydrocodone Screen, U Negative Methadone Metabolite Screen, U Negative Morphine/Codeine Screen, U Negative Oxycodone Screen, U Negative Narrative Cutoff Concentrations: Drug Level Amphetamines 500 ng/mL Benzodiazepines 100 ng/mL Cannabinoids 50 ng/mL Cocaine Metabolite 150 ng/mL Hydrocodone / Hydromorphone 300 ng/mL Methadone Metabolite 100 ng/mL Morphine / Codeine 300 ng/mL Oxycodone / Oxymorphone 100 ng/mL Screening results are presumptive and can only be used for medical purposes. Positive screening results are reflexed to confirmatory testing. *Note: Due to a large number of results and/or encounters for the requested time period, some results have not been displayed. A complete set of results can be found in Results Review. Patient Phone Numbers Labs: Lab Results Component Value Date/Time CREAT 0.6 06/15/2023 02:19 PM CREAT 0.8 12/09/2019 11:55 AM POTASSIUM 4.1 06/15/2023 02:19 PM POTASSIUM 4.0 12/09/2019 11:55 AM TSH 1.23 06/15/2023 02:19 PM TSH 2.45 06/15/2019 01:57 PM LDLCALC 38 06/15/2023 02:19 PM LDLCALC 48 12/09/2019 11:55 AM LDLDIRECT NOT APPLICABLE 12/09/2019 11:55 AM LDLDIRECT 50 06/15/2019 01:57 PM ALT 25 06/15/2023 02:19 PM ALT 29 12/09/2019 11:55 AM ALT 25 01/25/1996 03:00 PM HGBA1C 6.8 (H) 06/15/2023 02:19 PM HGBA1C 7.3 (H) 12/09/2019 11:55 AM documented in this encounter Plan of Treatment Upcoming Encounters Date Type Department Care Team (Late st Contact Info) Description 08/26/2023 11:30 AM EDT Office Visit Orthopaedics [facility] [address] [facility] [place] [address] Keerthi Menjivar MD [address] [place] [address] 08/31/2023 3:20 PM EDT Office Visit Family Practice [facility] [address] [place] [address] Kal Ray CRNP [address] [place] [address] 09/08/2023 2:30 PM EDT Office Visit Orthopaedics [facility] [address] [facility] [place] [address] Gigi Phillips MD [address] [place] [address] 2023 1:30 PM EDT Office Visit Allergy/Immunology [facility] [place] [address] [place] [address] Enrique Mcpherson MD [address] [place] [address] 10/02/2023 10:15 AM EDT [facility] [address] [place] [address] 10/15/2023 10:00 AM EDT Cardiac Studies Cardiology, [facility] [address] [facility] [place] [address] [facility] [address] [place] [address] 12/17/2023 1:00 PM EDT Office Visit Family Practice [facility] [address] [place] [address] Tip Oliver, [address] [place] [address] 08/23/2024 11:30 AM EDT Office Visit Urology, [facility] [address] [place] [address] Anthony Foster MD [address] [place] [address] [place] [address] Scheduled Procedures Name Priority Associated Diagnoses Date/Ti [...] systems documented in this encounter Care Teams Sail Finisher Hand Relationship Specialty Start Date End Date Tip Oliver DO [address] [place] [address] PCP - General Family Medicine 07/19/20 documented as of this encounter
--- OUTSIDE RECORDS SUMMARY | 2023-11-06 23:29 | External Medical Summary | Summary of Care ---
Author Name Unknown Organization [facility] Address [address] [facility] [place] [address] Phone [phone] Care Team Providers Care Applied Computer Science Professor Name Role Phone Tip Oliver Primary Care Provider Reason for Visit * Reason Comments NEW PATIENT Encounter Details Date Type Department Care Team (Late st Contact Info) Description 08/17/2023 9:00 AM EDT Office Visit Orthopaedics [facility] [address] [place] [address] Gigi Phillips MD [address] [place] [address] Injury of left lower leg, initial encounter* Allergies Active Allergy Reactions Criticality Noted Date Comments Povidone Iodine 08/21/2021 Iodides Rash Medium 12/13/1998 Allergy to Betadine- Iodinated Contrast Media Itching 05/31/2018 Iodine Itching 04/06/2012 Amlodipine Besylate Edema Other High 08/12/2013 Severe edema of feet and lower legs Shellfish-Derived Products Rash High 2 documented as of this encounter (statuses as of 08/17/2023) Medications Medication Sig Dispensed Refills Start Date [...] use: lifetime. 300 Strip 3 01/04/2013 Active [place]-3 Fatty Acids (FISH OIL) 1360 MG CAPS [...] by mouth in the morning. 0 Active Potassium Chloride ER 20 MEQ Oral Tablet Extended ReleaseIndications:B alance problems Take 1 Tablet by mouth in the morning. 90 Tablet 3 04/30/2022 Active Mirabegron ER 25 MG Oral Tablet Extended Release 24 Hour (Myrbetriq) Take 1 Tablet by mouth in the morning. 30 Tablet 11 08/12/2022 Active Slow Fe 142 (45 Fe) MG [...] QWEEK,Indications: on fridays, Reported on 12/11/2022 Ipratropium [place] 0.03 % Nasal Solution (Atrovent) Administer 2 [...] empty stomach 20 Tablet 0 08/06/2023 Active documented as of this encounter (statuses as of 08/17/2023) Active Problems Problem Noted Date Diagnosed Date [...] enlargement 01/20/2018 REANNA on CPAP 02/08/2014 Overview: [employer]. Fax is [phone] Phone no is [phone] Labile hypertension 12/26/2011 Type 2 diabetes mellitus [...] as of this encounter (statuses as of 08/17/2023) Resolved Problems Problem Noted Date Diagnosed Date [...] as of this encounter (statuses as of 08/17/2023) Immunizations Name Administration Dates Next Due COVID-19 mRNA, LNP-s, No Pre serve, 2-Dose Series ([facility]) 02/11/2021,06/15/2020,05/19/2020 COVID-19, MRNA-LNP, 23-24, P F, 30 MCG/0.3 mL, 12 YRS AND ABOVE, IM ([employer]-Comirnaty) 02/12/2023 Covid-19, Mrna, Lnp-s, Pf, B ivalent, [...] - 08/17/2023 9:12 AM EDT Ann Joseph [id number] Ann Joseph is a 77 year old male who presents for consultation to [facility] Orthopaedics and Sports Medicine for left leg injury/pain. Consult requested by Self. Ann Joseph is here unaccompanied Quality: reviewed and agree with Nursing Notes for HPI elements History: History - -L knee -Pt is Diabetic with A1C of 7.0 -Pt denies injections or sx to L knee -Pt is unaccompanied today -Pt is RETIRED -Pt was treated and released at [facility] on Thursday08/15/23 --Pt c/o bruising of L Lower Extremity -referral by [facility] for Pt to f/u with ORTHO GW -Xray L knee at [facility] on 08/15/23 -Xray showed effusion and edema ROS: ROS per HPI otherwise non-contributory Past Medical History: Diagnosis Date Aortic root enlargement (HCC) 01/20/2018 Ascending aorta dilatation (HCC) 12/13/2018 Balance problems 10/18/2019 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 adenomatous/repeat colonoscopy in 5 yrs COVID-19 04/12/2020 Depressive disorder, not elsewhere classified 10/30/2000 Diabetes 1.5, managed as type 2 ([facility]) Diverticulosis of colon 10/01/2005 Dyslipidemia, [...] (HCC) 08/20/2010 ICD-10 update of inactive term Family [...] level: Not on file Occupational History 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 Comment: [employer] Tobacco Use Smoking status: Former [...] necessary He will cancel if doing well Gigi Phillips MD Primary Care Sports Medicine Orthopaedics [address] [address] documented in this encounter Nursing Notes * Ruby Tellez LPN - 08/17/2023 9:06 AM EDT -NEW Pt -L knee -Pt is Diabetic with A1C of 7.0 -Pt denies injections or sx to L knee -Pt is unaccompanied today -Pt is RETIRED -Pt was treated and released at [facility] on Thursday08/15/23 --Pt c/o bruising of L Lower Extremity -referral by [facility] for Pt to f/u with ORTHO GW -Xray L knee at [facility] on 08/15/23 -Xray showed effusion and edema Tana Randhawa LPN documented in this encounter Plan of Treatment Upcoming Encounters Date Type Department Care Team (Late st Contact Info) Description 08/19/2023 2:30 PM EDT Office Visit Urology Alton Dillon [address] [place] [address] Monroe Zhang Jr., MD [address] [place] [address] 08/20/2023 12:45 PM EDT NeuroDiagnostic Study Neurophysiology [facility] [address] [place] [address] Major Ragland DO [address] [facility] [place] [place] [address] 09/04/2023 2:00 PM EDT Office Visit Family Practice [facility] [address] [place] [address] Leona Ruiz CRNP [address] [place] [address] 09/08/2023 2:30 PM EDT Office Visit Orthopaedics [facility] [address] [place] [address] Gigi Phillips MD [address] [place] [address] 2023 1:30 PM EDT Office Visit Allergy/Immunology [facility] [place] [address] [facility] [place] [address] Enrique Mcpherson MD [address] [place] [address] 10/02/2023 10:15 AM EDT Imaging Radiology [facility] [address] [facility] [address] [place] [address] 10/15/2023 10:00 AM EDT Cardiac Studies Cardiology, [facility] [address] [place] [address] [facility] [address] [place] [address] 12/17/2023 1:00 PM EDT Office Visit Family Practice [facility] [address] [place] [address] Tip Oliver DO [address] [place] [address] Scheduled Procedures Name Priority Associated Diagnoses Date/Ti me COLONOSCOPY FLEXIBLE PROXIMA L DIAGNOSTIC Recall History of colonic polyps Health Maintenance Due Date Last Done Comments Diabetic Eye Exam 07/19/2023 07/18/2022, , 06/27/2022, Additional history exists Diabetic Foot Exam 11/22/2023 11/21/2022, 0 11/25/2021, 05/18/2020, Additional history exists Depression Screening 12/12/2023 12/11/2022, 02/01/20 18 HbA1c 12/14/2023 06/15/2023, 11/25, 08/21/2022, Additional history exists COLONOSCOPY-ANNUAL AGES 18-100 03/17/2024 03/17/2023, 12/15/2022, 12/15/2022, Additional history exists O2 ASSESSMENT COMPLETED IN PAST YEAR FOR COPD 03/17/2024 03/17/2023 Albumin/Creatinine Ratio 06/15/2024 024, 05/29/2022, 05/28/2021, Additional history exists B-12 06/15/2024 06/15/2023, 11/25, 10/16/2021, Additional history exists GFR 06/15/2024 06/15/2023, 07/08/2022, 08/21/2022, Additional history exists TSH 06/15/2024 06/15/2023, [...] Completed 02/12/2023, 01/10/2022, 02/14/2021, Additional history exists COLONOSCOPY-EVERY 3 YRS AGES 18-100 Discontinued 03/17/2023, 12/15/2022, 12/15/2022, Additional [...] Primary documented in this encounter Care Teams Applied Computer Science Professor Relationship Specialty Start Date End Date Tip Oliver DO [address] [place] [address] PCP - General Family Medicine 07/19/20 documented as of this encounter
--- OUTSIDE RECORDS SUMMARY | 2023-11-06 23:29 | External Medical Summary | Summary of Care ---
Author Name Unknown Organization [facility] Address [address] [facility] [place] [address] Phone [phone] Care Team Providers Care Carpenter Packing Name Role Phone Tip Oliver Primary Care Provider Reason for Visit * Reason Comments EMG Encounter Details Date Type Department Care Team (Late st Contact Info) Description 08/20/2023 12:45 PM EDT NeuroDiagnostic Study Neurophysiology [facility] [address] [place] [address] Major Ragland DO [address] [address] Arrived Allergies Active Allergy Reactions Criticality Noted Date Comments Povidone Iodine 08/21/2021 Iodides Rash Medium 12/13/1998 Allergy to Betadine- Iodinated Contrast Media Itching 05/31/2018 Iodine Itching 04/06/2012 Amlodipine Besylate Edema Other High 08/12/2013 Severe edema of feet and lower legs Shellfish-Derived Products Rash High 2 documented as of this encounter (statuses as of 08/20/2023) Medications Medication Sig Dispensed Refills Start Date [...] use: lifetime. 300 Strip 3 01/04/2013 Active [place]-3 Fatty Acids (FISH OIL) 1360 MG CAPS [...] the morning. 90 Tablet 3 04/30/2022 Active Slow Fe 142 (45 Fe) MG [...] QWEEK,Indications: on fridays, Reported on 12/11/2022 Ipratropium [place] 0.03 % Nasal Solution (Atrovent) Administer 2 [...] as of this encounter (statuses as of 08/20/2023) Active Problems Problem Noted Date Diagnosed Date [...] enlargement 01/20/2018 REANNA on CPAP 02/08/2014 Overview: [employer]. Fax is [phone] Phone no is [phone] Labile hypertension 12/26/2011 Type 2 diabetes mellitus [...] as of this encounter (statuses as of 08/20/2023) Resolved Problems Problem Noted Date Diagnosed Date [...] as of this encounter (statuses as of 08/20/2023) Immunizations Name Administration Dates Next Due COVID-19 mRNA, LNP-s, No Pre serve, 2-Dose Series ([employer]) 02/11/2021,06/15/2020,05/19/2020 COVID-19, MRNA-LNP, 23-24, P F, 30 [...] as of this encounter Progress Notes * Major Ragland DO - 08/20/2023 1:36 PM EDT [facility] Electromyography Report Name: Ann Joseph Date of : 1945 (77 year old) Sex: male Tech: [place] Referring Physician: Self Examining Physician: Major Ragland DO Examination Date: 08/20/2023 Ht Readings from Last 1 Encounters: 08/15/23 1.778 m (5' 10") Wt Readings from Last 1 Encounters: 08/15/23 98.8 kg (217 lb 12.8 oz) Impression: Abnormal study. This electrodiagnostic study shows evidence of the followin. 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 2. Mild left ulnar neuropathy, location unspecified, although likely at the wrist. 3. Chronic left C5-7 radiculopathy with no active denervation. History and Physical examination: A 77-year-old male with type 2 diabetes and cervical spine stenosis referred for evaluation of left hand numbness. Examination demonstrates no FDI or thenar muscle atrophy. EMG/NCS performed for evaluation of neuropathy. Nerve Conduction Studies Examination Findings: Nerve conduction studies were performed in the left lower extremity. The median sensory nerve studyshowed a prolonged peak latency, reduced amplitude, slow conduction velocity. The ulnar sensory nerve study showed a prolonged peak latency, normal amplitude, slow conduction velocity. The radial sensory nerve study showed normal peak latencies, normal amplitude, and normal conduction velocity. Themedian motor nerve study showed a prolonged distal latencies, reduced amplitude, and slow conduction velocity. The ulnar motor nerve study showed a normal distal latency, normal amplitude, and slow conduction velocity. Please see the attached document for raw data or the scanned document in EPIC. Reference values are from the [facility] normative data guidelines that are attached at the end ofthis document. Electromyography Examination Findings: Needle examination was performed with a disposable concentric needle electrode in selected muscles of the left upper extremity, as recorded in the tables. No abnormal spontaenous activity was seen. The 1st dorsal interosseous, triceps brachii, and deltoid muscles demonstrated mildly to moderately increased size and mild to moderately reduced recruitment. The motor unit action potentials in the other muscles tested demonstrated normal size, duration, and recruitment. Please see the attached document for raw data or the scanned document in EPIC. The study was done with a concentric needle examination. Major Ragland DO documented in this encounter Plan of Treatment Upcoming Encounters Date Type Department Care Team (Late st Contact Info) Description 08/31/2023 3:20 PM EDT Office Visit Family Practice [facility] [address] [facility] [address] Kal Ray CRNP [address] [place] [address] 09/08/2023 2:30 PM EDT Office Visit Orthopaedics [facility] [address] [facility] [place] [address] Gigi Phillips [facility] [place] [address] 2023 1:30 PM EDT Office Visit Allergy/Immunology [facility] [address] Enrique Mcpherson MD [address] [place] [address] 10/02/2023 10:15 AM EDT Imaging Radiology [facility]st [facility] [address] [facility] [place] [address] 10/15/2023 10:00 AM EDT Cardiac Studies Cardiology, [facility] [address] [facility] [place] [address] [facility] [address] [facility] [place] [address] 12/17/2023 1:00 PM EDT Office Visit Family Practice [facility] [address] [place] [address] Tip Oliver DO [address] [place] [address] 08/23/2024 11:30 AM EDT Office Visit Urology, [facility] [address] [place] [address] Anthony Foster MD [address] [place] [place] [address] Scheduled Procedures Name Priority Associated Diagnoses Date/Ti [...] as of this encounter Visit Diagnoses Diagnosis Numbness and tingling in left hand [R20.0, R20.2]- Primary Disturbance of skin sensation documented in this encounter Care Teams Carpenter Packing Relationship Specialty Start Date End Date Tip Oliver DO [address] [place] [address] PCP - General Family Medicine 07/19/20 documented as of this encounter
--- OUTSIDE RECORDS SUMMARY | 2023-11-06 23:29 | External Medical Summary | Summary of Care ---
Author Name Unknown Organization [facility] Address [address] [facility] [place] [address] Phone [phone] Care Team Providers Care Resolution Specialist Name Role Phone Tip Oliver Primary Care Provider Encounter Details Date Type Department Care Team (Late st Contact Info) Description 08/15/2023 Orders Only Orthopaedics [facility] [address] [place] [address] Gigi Phillips MD [address] [place] [address] Allergies Active Allergy Reactions Criticality Noted Date [...] use: lifetime. 300 Strip 3 01/04/2013 Active [place]-3 Fatty Acids (FISH OIL) 1360 MG CAPS [...] QWEEK,Indications: on fridays, Reported on 12/11/2022 Ipratropium [place] 0.03 % Nasal Solution (Atrovent) Administer 2 [...] enlargement 01/20/2018 REANNA on CPAP 02/08/2014 Overview: [employer]. Fax is [phone] Phone no is [phone] Labile hypertension 12/26/2011 Type 2 diabetes mellitus [...] mRNA, LNP-s, No Pre serve, 2-Dose Series (REscour) 02/11/2021,06/15/2020,05/19/2020 COVID-19, MRNA-LNP, 23-24, P F, 30 MCG/0.3 mL, 12 YRS AND ABOVE, IM [facility] 02/12/2023 Covid-19, Mrna, Lnp-s, Pf, [...] 3:20 PM EDT Office Visit Family Practice [facility] [address] [place] [address] Kal Ray CRNP [address] [place] [address] 09/08/2023 2:30 PM EDT Office Visit Orthopaedics [facility] [address] [place] [address] Gigi Phillips MD [address] [place] [address] 2023 1:30 PM EDT Office Visit Allergy/Immunology [facility] [address] [place] [address] Enrique Mcpherson MD 200 [place] [address] 10/02/2023 10:15 AM EDT Imaging Radiology [facility] 1st [facility] 132 [facility] [place] [address] 10/15/2023 10:00 AM EDT Cardiac Studies Cardiology, [facility] 132 [facility] [place] [address] [facility] 132 [facility] [place] [address] 12/17/2023 1:00 PM EDT Office Visit Family Practice [facility] [address] [place] [address] Tip Oliver DO [address] [place] [address] 08/23/2024 11:30 AM EDT Office Visit Urology, [facility] 132 [facility] [place] [address] Anthony Foster MD 27 [facility] [place] [address] [place] [address] [...] Procedure Name Priority Date/Time Associated Diagnosis Comments RADIOLOGY EXAM - GENERAL RAD (IMAGES ONLY,NO REPORT) Routine 08/15/2023 9:35 PM EDT documented in this encounter Results * RADIOLOGY EXAM - GENERAL RAD (IMAGES ONLY,NO REPORT) (08/15/2023 9:35 PM EDT) 08/15/2023 9:34 PM EDT Narrative Scheduling, Silent - 08/20/2023 12:44 PM EDT This is an imaging study not interpreted or resulted by a [facility] or [employer] contracted radiologist. Gigi Phillips MD RADIOLOGY ( RAD GENERAL) documented in this encounter Care Teams Resolution Specialist Relationship Specialty Start Date End Date Tip Oliver DO 132 [facility] [place] [address] PCP - General Family Medicine 07/19/20 documented as of this encounter
--- OUTSIDE RECORDS SUMMARY | 2023-11-06 23:29 | External Medical Summary | Summary of Care ---
Author Name Unknown Organization [facility] Address [address] [place] [address] Phone [phone] Care Team Providers Care Dishcloth Folder Name Role Phone Tip Oliver Primary Care Provider Encounter Details Date Type Department Care Team (Latest Contact Info) Description 08/15/2023 9:35 PM EDT - 08/15/2023 11:59 PM EDT Hospital Encounter Radiology [facility] [address] [place] [address] Discharge Disposition: Home - Self Care Allergies Active Allergy Reactions Criticality Noted Date [...] use: lifetime. 300 Strip 3 01/04/2013 Active [place]-3 Fatty Acids (FISH OIL) 1360 MG CAPS [...] QWEEK,Indications: on fridays, Reported on 12/11/2022 Ipratropium [place] 0.03 % Nasal Solution (Atrovent) Administer 2 [...] enlargement 01/20/2018 REANNA on CPAP 02/08/2014 Overview: [facility]. Fax is [phone] Phone no is [phone] Labile hypertension 12/26/2011 Type 2 diabetes mellitus [...] mRNA, LNP-s, No Pre serve, 2-Dose Series (Soundflavor) 02/11/2021,06/15/2020,05/19/2020 COVID-19, MRNA-LNP, 23-24, P F, 30 MCG/0.3 mL, 12 YRS AND ABOVE, IM ([employer]-Comirnat) 02/12/2023 Covid-19, Mrna, Lnp-s, Pf, B ivalent, [...] 08/31/2023 3:20 PM EDT Office Visit Family [facility] [address] [place] [address] Kal Ray CRNP [address] [place] [address] 09/08/2023 2:30 PM EDT Office Visit Orthopaedics [facility] [address] [place] [address] Gigi Phillips MD [address] [place] [address] 2023 1:30 PM EDT Office Visit Allergy/Immunology [facility] [address] [place] [address] Enrique Mcpherson MD 200 [facility] [place] [address] 10/02/2023 10:15 AM EDT Imaging Radiology [facility] 1st [facility] 132 [place] [address] 10/15/2023 10:00 AM EDT Cardiac Studies Cardiology, [facility] 132 [place] [address] [facility] 132 [facility] [place] [address] 12/17/2023 1:00 PM EDT Office Visit Family Practice [facility] [address] [place] [address] Tip Oliver DO [address] [place] [address] 08/23/2024 11:30 AM EDT Office Visit Urology, [facility] [address] [place] [address] Anthony Foster MD [address] [place] [address] Scheduled Procedures Name Priority Associated Diagnoses Date/Ti [...] completing the topic Zoster Vaccines Completed 02/22/2019, 0 11/2018, 03/02/2012 Lung Cancer Screening Completed 09/30/2022, [...] interpreted or resulted by a [facility] or [employer] contracted radiologist. Gigi Phillips MD RADIOLOGY ( RAD GENERAL) documented in this encounter Care Teams Dishcloth Folder Relationship Specialty Start Date End Date Tip Oliver DO [address] [place] [address] PCP - General Family Medicine 07/19/20 documented as of this encounter
--- OUTSIDE RECORDS SUMMARY | 2023-11-06 23:29 | External Medical Summary | Summary of Care ---
Author Name Unknown Organization [facility] Address [address] [place] [address] Phone [phone] Care Team Providers Care Attendance Officer Name Role Phone Tip Oliver Primary Care Provider Encounter Details Date Type Department Care Team (Latest Contact Info) Description 08/15/2023 7:15 PM EDT - 08/15/2023 9:34 PM EDT Hospital Encounter Radiology Film File [address] [place] [address] Discharge Disposition: Home - Self [...] use: lifetime. 300 Strip 3 01/04/2013 Active [place]-3 Fatty Acids (FISH OIL) 1360 MG CAPS [...] QWEEK,Indications: on fridays, Reported on 12/11/2022 Ipratropium [place] 0.03 % Nasal Solution (Atrovent) Administer 2 [...] enlargement 01/20/2018 REANNA on CPAP 02/08/2014 Overview: [employer]. Fax is [phone] Phone no is [phone] Labile hypertension 12/26/2011 Type 2 diabetes mellitus [...] mRNA, LNP-s, No Pre serve, 2-Dose Series (Playfire) 02/11/2021,06/15/2020,05/19/2020 COVID-19, MRNA-LNP, 23-24, P F, 30 MCG/0.3 mL, 12 YRS AND ABOVE, IM ([employer]-Comirnat) 02/12/2023 Covid-19, Mrna, Lnp-s, Pf, B ivalent, [...] 08/31/2023 3:20 PM EDT Office Visit Family [facility] [address] [place] [address] Kal Ray CRNP [address] [place] [address] 09/08/2023 2:30 PM EDT Office Visit Orthopaedics [facility] [address] [place] [address] Gigi Phillips MD [address] [place] [address] 2023 1:30 PM EDT Office Visit Allergy/Immunology [facility] [address] [place] [address] Enrique Mcpherson MD 200 [place] [address] 10/02/2023 10:15 AM EDT Imaging Radiology [facility] 1st [facility] 132 [facility] [place] [address] 10/15/2023 10:00 AM EDT Cardiac Studies Cardiology, [facility] 132 [facility] [place] [address] [facility] 132 [facility] [place] [address] 12/17/2023 1:00 PM EDT Office Visit Family Practice [facility] [address] [place] [address] Tip Oliver DO [address] [place] [address] 08/23/2024 11:30 AM EDT Office Visit Urology, [facility] [address] [place] [address] Anthony Foster MD 27 [address] [place] [address] Scheduled Procedures Name Priority Associated Diagnoses Date/Ti [...] Date/Time Associated Diagnosis Comments RADIOLOGY EXAM - US (IMAGES ONLY, NO REPORT) Routine 08/15/2023 7:15 PM EDT documented in this encounter Results * RADIOLOGY EXAM - US (IMAGES ONLY, NO REPORT) (08/15/2023 7:15 PM EDT) 08/15/2023 7:11 PM EDT Narrative Scheduling, Silent - 08/20/2023 12:45 PM EDT This is an imaging study not interpreted or resulted by a [facility] contracted radiologist. Gigi Phillips MD RAD ULTRASO UND documented in this encounter Care Teams Attendance Officer Relationship Specialty Start Date End Date Tip Oliver DO [address] [place] [address] PCP - General Family Medicine 07/19/20 documented as of this encounter
--- OUTSIDE RECORDS SUMMARY | 2023-11-06 23:29 | External Medical Summary | Summary of Care ---
Author Name Unknown Organization [facility] Address [address] [facility] [place] [address] Phone [phone] Care Team Providers Care Legal Writing Professor Name Role Phone Tip Oliver Primary Care Provider Encounter Details Date Type Department Care Team (Late st Contact Info) Description 08/15/2023 Orders Only Orthopaedics [facility] [address] [place] [address] Gigi Phillips MD [address] [place] [address] Allergies Active Allergy Reactions Criticality Noted Date [...] use: lifetime. 300 Strip 3 01/04/2013 Active [place]-3 Fatty Acids (FISH OIL) 1360 MG CAPS [...] QWEEK,Indications: on fridays, Reported on 12/11/2022 Ipratropium [place] 0.03 % Nasal Solution (Atrovent) Administer 2 [...] enlargement 01/20/2018 REANNA on CPAP 02/08/2014 Overview: [employer]. Fax is [phone] Phone no is [phone] Labile hypertension 12/26/2011 Type 2 diabetes mellitus [...] mRNA, LNP-s, No Pre serve, 2-Dose Series (EarlyTracks) 02/11/2021,06/15/2020,05/19/2020 COVID-19, MRNA-LNP, 23-24, P F, 30 MCG/0.3 mL, 12 YRS AND ABOVE, IM [facility] 02/12/2023 Covid-19, Mrna, Lnp-s, [...] Family Practice [facility] [address] [place] [address] Kal Ray CRNP [address] [place] [address] 09/08/2023 2:30 PM EDT Office Visit Orthopaedics [facility] [address] [place] [address] Gigi Phillips MD [address] [place] [address] 2023 1:30 PM EDT Office Visit Allergy/Immunology [facility] [address] [place] [address] Enrique Mcpherson MD 200 [facility] [place] [address] 10/02/2023 10:15 AM EDT Imaging Radiology [facility] 1st [facility] 132 [facility] [place] [address] 10/15/2023 10:00 AM EDT Cardiac Studies Cardiology, [facility] 132 [facility] [place] [address] [facility] 132 [facility] [place] [address] 12/17/2023 1:00 PM EDT Office Visit Family Practice [facility] [address] [place] [address] Tip Oliver DO [address] [place] [address] 08/23/2024 11:30 AM EDT Office Visit Urology, [facility] 132 [facility] [place] [address] Anthony Foster MD 27 [facility] [place] [address] [place] [address] [...] interpreted or resulted by a [facility] or [employer] contracted radiologist. iGgi Phillips MD RAD ULTRASO UND documented in this encounter Care Teams Legal Writing Professor Relationship Specialty Start Date End Date Tip Oliver DO 132 [facility] [place] [address] PCP - General Family Medicine 07/19/20 documented as of this encounter
--- OUTSIDE RECORDS SUMMARY | 2023-11-06 23:29 | External Medical Summary | Summary of Care ---
Author Name Unknown Organization [facility] Address [address] [facility] [place] [address] Phone [phone] Care Team Providers Care Jelly Filter Tender Name Role Phone Tip Oliver DO Primary Care Provider Reason for Visit * Reason Onset Date Comments Medical Records Request 08/11/2023 Encounter Details Date Type Department Care Team (Late st Contact Info) Description 08/11/2023 Telephone Family Practice [facility] [address] [place] [address] Tip Oliver DO [address] [place] [address] Medical Records Request Allergies Active Allergy Reactions Criticality Noted Date Comments Povidone Iodine 08/21/2021 Iodides Rash Medium 12/13/1998 Allergy to Betadine- Iodinated Contrast Media Itching 05/31/2018 Iodine Itching 04/06/2012 Amlodipine Besylate Edema Other High 08/12/2013 Severe edema of feet and lower legs Shellfish-Derived Products Rash High 2 documented as of this encounter (statuses as of 08/18/2023) Medications Medication Sig Dispensed Refills Start Date [...] use: lifetime. 300 Strip 3 01/04/2013 Active [place]-3 Fatty Acids (FISH OIL) 1360 MG CAPS [...] QWEEK,Indications: on fridays, Reported on 12/11/2022 Ipratropium [place] 0.03 % Nasal Solution (Atrovent) Administer 2 [...] as of this encounter (statuses as of 08/18/2023) Active Problems Problem Noted Date Diagnosed Date [...] enlargement 01/20/2018 REANNA on CPAP 02/08/2014 Overview: [employer]. Fax is [phone] Phone no is [phone] Labile hypertension 12/26/2011 Type 2 diabetes mellitus [...] as of this encounter (statuses as of 08/18/2023) Resolved Problems Problem Noted Date Diagnosed Date [...] as of this encounter (statuses as of 08/18/2023) Immunizations Name Administration Dates Next Due COVID-19 mRNA, LNP-s, No Pre serve, 2-Dose Series ([employer]) 02/11/2021,06/15/2020,05/19/2020 COVID-19, MRNA-LNP, 23-24, P F, 30 MCG/0.3 mL, 12 YRS AND ABOVE, IM ([employer]P Pro-Comirnaty) 02/12/2023 Covid-19, Mrna, Lnp-s, Pf, B ivalent, [...] encounter Miscellaneous Notes * Telephone Encounter - Olga Lidia Worthington LPN - 08/17/2023 11:50 AM EDT See new My G * Telephone Encounter - Johanna Oliver OSA - 08/14/2023 7:22 AM EDT Ok for AP? * Telephone Encounter - Katelin Pimentel LPN - 08/13/2023 3:14 PM EDT Received request from [employer] for Diabetic Suppies. In need of Last Office notes for DM, BS testing frequecy, reason for testing frequency, pt's self testing logs, and PCP signature on notes. Last OFV notes sent (12/12/23 for DM OFV) and recent labs to [employer] at [phone]. Last OFV out of the 6 month necessary time frame for DM and Medicare qualifications. Appointments--Please reach out to pt and see if we can see him for a sooner OFV for DM. Next appt scheduled for 12/17/23. * Telephone Encounter - Maria E Padron OSA - 08/11/2023 11:20 AM EDT [facility] is requesting medical records for the purpose of continued care. Forwarded to [facility] documented in this encounter Plan of Treatment Upcoming Encounters Date Type Department Care Team (Late st Contact Info) Description 08/19/2023 2:30 PM EDT Office Visit Urology [place] [facility] [address] [place] [address] [place] [address] [place] Zhang Jr., MD [address] [place] [address] [place] [address] 08/20/2023 12:45 PM EDT NeuroDiagnostic Study Neurophysiology [facility] 132 [facility] [place] [address] Major Ragland DO 200 [facility] [place] [address] 08/31/2023 3:20 PM EDT Office Visit Family Practice [facility] 132 [facility] [place] [address] Kal Ray CRNP 132 [facility] [place] [address] 09/08/2023 2:30 PM EDT Office Visit Orthopaedics [facility] 132 [facility] [place] [address] Gigi Phillips MD 132 [facility] [place] [address] 2023 1:30 PM EDT Office Visit Allergy/Immunology [facility] [address] [place] [address] Enrique Mcpherson MD [address] [place] [address] 10/02/2023 10:15 AM EDT Imaging Radiology [facility] 1st [facility] 132 [facility] [place] [address] 10/15/2023 10:00 AM EDT Cardiac Studies Cardiology, [facility] 132 [facility] [place] [address] [facility] [address] [place] [address] 12/17/2023 1:00 PM EDT Office Visit Family Practice [facility] [address] [place] [address] Tip Oliver DO [address] [place] [address] Scheduled Procedures Name Priority Associated Diagnoses Date/Ti [...] filedocumented as of this encounter Care Teams Jelly Filter Tender Relationship Specialty Start Date End Date Tip Oliver DO [address] [place] [address] PCP - General Family Medicine 07/19/20 documented as of this encounter
--- OUTSIDE RECORDS SUMMARY | 2023-11-06 23:29 | External Medical Summary | Summary of Care ---
Author Name Unknown Organization [facility] Address [address] [facility] [place] [address] Phone [phone] Care Team Providers Care Sales Marketing Coordinator Name Role Phone Tip Oliver Primary Care Provider Encounter Details Date Type Department Care Team (Late st Contact Info) Description 08/18/2023 Patient Reported Data Patient Survey Ortho OBERD [...] use: lifetime. 300 Strip 3 01/04/2013 Active [place]-3 Fatty Acids (FISH OIL) 1360 MG CAPS [...] QWEEK,Indications: on fridays, Reported on 12/11/2022 Ipratropium [place] 0.03 % Nasal Solution (Atrovent) Administer 2 [...] enlargement 01/20/2018 REANNA on CPAP 02/08/2014 Overview: [employer]. Fax is [phone] Phone no is [phone] Labile hypertension 12/26/2011 Type 2 diabetes mellitus [...] mRNA, LNP-s, No Pre serve, 2-Dose Series (Enish) 02/11/2021,06/15/2020,05/19/2020 COVID-19, MRNA-LNP, 23-24, P F, 30 MCG/0.3 mL, 12 YRS AND ABOVE, IM (ihiji-Comirnat) 02/12/2023 Covid-19, Mrna, Lnp-s, Pf, B ivalent, [...] Description 08/19/2023 2:30 PM EDT Office Visit UrologAlton Martino [address] [place] [address] [place] [address] [place] Zhang Jr., MD [address] [place] [address] [place] [address] 08/20/2023 12:45 PM EDT [facility] [address] Major Ragland, [address] [place] [address] 08/31/2023 3:20 PM EDT Office Visit Family Practice [facility] [address] Kal Ray CRNP 132 [place] [address] 09/08/2023 2:30 PM EDT Office Visit Orthopaedics [facility] [address] Gigi Phillips MD 132 [facility] [address] 2023 1:30 PM EDT Office Visit Allergy/Immunology [facility] [address] [place] [address] Enrique Mcpherson MD [address] [place] [address] 10/02/2023 10:15 AM EDT Imaging Radiology [facility] 1st [facility] 132 [facility] [place] [address] 10/15/2023 10:00 AM EDT Cardiac Studies Cardiology, [facility] [address] [facility] [address] [facility] 132 [facility] [place] [address] 12/17/2023 1:00 PM EDT Office Visit Family Practice [facility] [address] [place] [address] Tip Oliver, [address] [place] [address] Scheduled Procedures Name Priority Associated Diagnoses Date/Ti [...] filedocumented as of this encounter Care Teams Sales Marketing Coordinator Relationship Specialty Start Date End Date Tip Oliver DO [address] [place] [address] PCP - General Family Medicine 07/19/20 documented as of this encounter
--- OUTSIDE RECORDS SUMMARY | 2023-11-06 23:29 | External Medical Summary | Summary of Care ---
Author Name Unknown Organization [facility] Address [address] [facility] [place] [address] Phone [phone] Care Team Providers Care Inspector And Sorter Name Role Phone Tip Oliver Primary Care Provider Reason for Visit * Reason Onset Date Comments Medication Update 08/18/2023 Encounter Details Date Type Department Care Team (Late st Contact Info) Description 08/18/2023 Telephone Family Practice [facility] 132 [facility] [place] [address] Katelin Pimentel LPN Medication Update Allergies Active Allergy Reactions Criticality Noted Date [...] use: lifetime. 300 Strip 3 01/04/2013 Active [place]-3 Fatty Acids (FISH OIL) 1360 MG CAPS [...] QWEEK,Indications: on fridays, Reported on 12/11/2022 Ipratropium [place] 0.03 % Nasal Solution (Atrovent) Administer 2 [...] enlargement 01/20/2018 REANNA on CPAP 02/08/2014 Overview: [employer]. Fax is [phone] Phone no is [phone] Labile hypertension 12/26/2011 Type 2 diabetes mellitus [...] mRNA, LNP-s, No Pre serve, 2-Dose Series ([employer]) 02/11/2021,06/15/2020,05/19/2020 COVID-19, MRNA-LNP, 23-24, P F, 30 MCG/0.3 mL, 12 YRS AND ABOVE, IM ([employer]-Comirnaty) 02/12/2023 Covid-19, Mrna, Lnp-s, Pf, B ivalent, [...] encounter Miscellaneous Notes * Telephone Encounter - Katelin Pimentel LPN - 08/18/2023 8:05 AM EDT Received letter from [employer] that pt's Ozenouc mg/ml pens x 3 pen (120 day supply) has been supplied and should arrive to our office within business days. The next refill will be fulfilled on 09/01/2023. Please contact pt when shipment arrives to clinic for bulk picker. documented in this encounter Plan of Treatment Upcoming Encounters Date Type Department Care Team (Late st Contact Info) Description 08/19/2023 2:30 PM EDT Office Visit Urology [facility] Dillon [address] [place] [address] [place] [address] Monroe Zhang Jr., MD [address] [place] [address] [place] [address] 08/20/2023 12:45 PM EDT NeuroDiagnostic Study Neurophysiology [facility] [address] [place] [address] Major Ragland, DO [address] [facility] [place] [address] 08/31/2023 3:20 PM EDT Office Visit Family Practice [facility] [address] [place] [address] Kal Ray CRNP [address] [place] [address] 09/08/2023 2:30 PM EDT Office Visit Orthopaedics [facility] [address] [place] [address] Gigi Phillips MD [address] [place] [address] 2023 1:30 PM EDT Office Visit Allergy/Immunology [facility] [place] [address] [place] [address] Enrique Mcpherson MD [address] [place] [address] 10/02/2023 10:15 AM EDT Imaging Radiology [facility] 1st [facility] [address] [place] [address] 10/15/2023 10:00 AM EDT Cardiac Studies Cardiology, [facility] [address] [place] [address] [facility] [address] [place] [address] 12/17/2023 1:00 PM EDT Office Visit Family Practice [facility] [address] [place] [address] Tip Oliver DO [address] [place] [address] Scheduled Procedures Name Priority Associated Diagnoses Date/Ti [...] filedocumented as of this encounter Care Teams Inspector And Sorter Relationship Specialty Start Date End Date Tip Oliver DO 132 [place] [address] PCP - General Family Medicine 07/19/20 documented as of this encounter
--- OUTSIDE RECORDS SUMMARY | 2023-11-06 23:29 | External Medical Summary | Summary of Care ---
Author Name Unknown Organization [facility] Address [address] [facility] [place] [address] Phone [phone] Care Team Providers Care Locomotive Mechanic Name Role Phone Rachid Oliver Primary Care Provider Reason for Visit * Reason Comments Follow Up Encounter Details Date Type Department Care Team (Late st Contact Info) Description 08/19/2023 2:30 PM EDT Office Visit Urology [facility] [address] [place] [address] Monroe Zhang Jr., MD [address] [place] [address] BPH with obstruction/lower urinary tract symptoms*; OAB (overactive bladder); Erectile dysfunction, unspecified erectile dysfunction type Allergies Active Allergy Reactions Criticality Noted Date Comments Povidone Iodine 08/21/2021 Iodides Rash Medium 12/13/1998 Allergy to Betadine- Iodinated Contrast Media Itching 05/31/2018 Iodine Itching 04/06/2012 Amlodipine Besylate Edema Other High 08/12/2013 Severe edema of feet and lower legs Shellfish-Derived Products Rash High 2 documented as of this encounter (statuses as of 08/19/2023) Medications Medication Sig Dispensed Refills Start Date [...] use: lifetime. 300 Strip 3 3 Active [place]-3 Fatty Acids (FISH OIL) 1360 MG CAPS [...] the morning. 90 Tablet 3 3 Active Slow Fe 142 (45 Fe) MG [...] QWEEK,Indications: on fridays, Reported on 12/11/2022 Ipratropium [place] 0.03 % Nasal Solution (Atrovent) Administer 2 Sprays into nostril in the morning and 2 Sprays at noon and 2 Sprays before bedtime. 30 mL 6 3 Active Carvedilol 25 MG Oral Tablet (Coreg)Indications: [...] the morning. 30 Tablet 6 4 Active Mirabegron ER 25 MG Oral Tablet Extended Release 24 Hour (Myrbetriq) Take 1 Tablet by mouth in the morning. 30 Tablet 11 3 024 Discontinued documented as of this encounter (statuses as of 08/19/2023) Active Problems Problem Noted Date Diagnosed Date [...] enlargement 01/20/2018 REANNA on CPAP 02/08/2014 Overview: [facility]. Fax is [phone] Phone no is [phone] Labile hypertension 12/26/2011 Type 2 diabetes mellitus [...] as of this encounter (statuses as of 08/19/2023) Resolved Problems Problem Noted Date Diagnosed Date [...] as of this encounter (statuses as of 08/19/2023) Immunizations Name Administration Dates Next Due COVID-19 mRNA, LNP-s, No Pre serve, 2-Dose Series (Dydra) 02/11/2021,06/15/2020,05/19/2020 COVID-19, MRNA-LNP, 23-24, P F, 30 MCG/0.3 mL, 12 YRS AND ABOVE, IM [facility] 02/12/2023 Covid-19, Mrna, Lnp-s, Pf, B [...] as of this encounter Progress Notes * Vicente Yeh, Monroe Ramirez MD - 08/19/2023 2:37 PM EDT [id number] PCP: RACHID OLIVER [address] [place] [address] [phone] Ann Joseph is a 77 year old male, who presents in referral for evaluation of BPHand OAB on Flomax and Tadalafil for BPH and we tried Myrbetriq for OAB but he couldn't afford it. He is on Tadalafil for the ED. 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 PSA Results: Lab Results Component Value Date/Time PSA - [facility] 0.57 12/08/2022 10:08 AM PSA - [facility] 0.58 08/11/2022 12:07 PM PSA - [facility] 0.41 07/23/2020 12:27 PM PSA - [facility] 0.52 11/29/2008 09:16 AM PSA - [facility] 0.45 08/19/2007 09:16 AM PSA - [facility] 0.5 04/17/2000 09:12 PM PSA SCREENING 0.56 10/27/2013 09:33 AM PSA SCREENING 0.81 12/05/2011 10:07 AM PSA SCREENING 0.58 08/16/2010 08:48 AM He is still bothered by his urgency Current Outpatient Medications Medication Sig Dispense Refill ASPIRIN 81 MG PO TABS Take by mouth at bedtime. FREESTYLE LANCETS MISC use for testing up to 2 times a day. dx 250.00. estimated use: lifetime. 3 Box 3 FREESTYLE TEST STRP use for testing up to 2 times a day. dx 250.00. estimated use: lifetime. 300Strip 3 [place]-3 Fatty Acids (FISH OIL) 1360 MG CAPS Take by mouth. Multiple Vitamins-Minerals (DAILY MULTIVITAMIN) CAPS Take by mouth. Insulin Pen Needle (BD PEN NEEDLE MARISA U/F) 32G X 4 MM Use once daily 100 Each 3 Wheat Dextrin (BENEFIBER) powder Take by mouth daily. Acetaminophen 325 MG Oral Tablet (Tylenol) Take 2 Tablets by mouth every 6 hours as needed for Pain, Mild or Pain, Moderate. PreserVision AREDS 2 Oral Capsule Take 1 Capsule by mouth every evening. Vitamin D-3 25 MCG (1000 UT) Oral Capsule Take 1 Capsule by mouth in the morning. Potassium Chloride ER 20 MEQ Oral Tablet Extended Release Take 1 Tablet by mouth in the morning. 90Tablet 3 Mirabegron ER 25 MG Oral Tablet Extended Release 24 Hour (Myrbetriq) Take 1 Tablet by mouth in the morning. 30 Tablet 11 Slow Fe 142 (45 Fe) MG Oral Tablet Extended Release (Ferrous Sulfate ER) Take by mouth. Atorvastatin Calcium 40 MG Oral Tablet (Lipitor) TAKE 1 TABLET BY MOUTH EVERY MORNING (Patient taking differently: No sig reported) 90 Tablet 3 Ozempic (2 MG/DOSE) 8 MG/3ML Subcutaneous Solution Pen-injector (Semaglutide (2 MG/DOSE)) Inject 0.75 mL under the skin once a week. (Patient taking differently: Inject 2 mg under the skin once a week.) 3 mL 5 Ipratropium [place] 0.03 % Nasal Solution (Atrovent) Administer 2 [...] mouth in the morning. 90 Tablet 3 valACYclovir HCl 500 MG Oral Tablet (Valtrex) TAKE 1 TABLET BY MOUTH EVERY DAY 90 Tablet 1 Losartan Potassium 50 MG Oral Tablet (Cozaar) [...] Capsule in the evening. 180 Capsule 3 Tadalafil 5 MG Oral Tablet (Cialis) TAKE 1 TABLET BY MOUTH EVERY DAY NEEDED FOR ERECTILE DYSFUNCTION 30 Tablet 3 Metaxalone 800 MG Oral Tablet Take 1 Tablet by mouth 2 times a day as needed for Pain, Severe. On an empty stomach 20 Tablet 0 No current facility-administered medications for this visit. Review of patient's allergies indicates: Allergen Reactions Norvasc [Amlodipine Besylate] Edema Other Severe edema of feet and lower legs Shellfish-Derived Products Rash Iodides Rash Allergy to Betadine- Betadine [Povidone Iodine] Iodinated Contrast Media Itching Iodine Itching Social History: Social History Tobacco Use Smoking status: Former Current packs/day: 0.00 Average packs/day: 0.5 packs/day for 48.0 years (24.0 ttl pk-yrs) Types: Cigarettes Start date: 04/28/1961 Quit date: 04/28/2009 Years since quittin.3 Smokeless tobacco: Former Types: Snuff Quit date: 05/24/2009 Tobacco comments: Passive smoke exposure from son who lives with him Substance Use Topics Alcohol use: Yes Comment: very occasional-2 beers every couple of months Vaping/E-Cigarette Use Vaping/E-Cigarette Use Never User Vaping/E-Cigarette Substances Vaping/E-Cigarette Devices Past Surgical History: Procedure Laterality Date COLONOSCOPY W/ BIOPSY (RECTUM) 10/20/08 done adenomatous/repeat colonoscopy in 5 yrs COLONOSCOPY, DIAGNOSTIC (RECTUM) , 10/27 next 10/30 COLONOSCOPY, DIAGNOSTIC (RECTUM) 11/07/2013 adenomatous polyps, diverticulosis, repeat 5 yrs/COLONOSCOPY FLEXIBLE PROXIMAL DIAGNOSTIC performedby Mitchell Waters MD at ENDOSCOPY [facility] COLONOSCOPY, DIAGNOSTIC (RECTUM) 02/09/2018 adenomatous polyps, repeat 3 yrs/COLONOSCOPY FLEXIBLE PROXIMAL DIAGNOSTIC performed by Jeffrey Jaramillo MD at [facility] COLONOSCOPY, DIAGNOSTIC (RECTUM) 03/19/2021 patent end to side ileo-colonic anastomosis/mulitple polyps/diverticulosis sigmoid colon/biopsies show adenomatous polyps/recall 5 years/COLONOSCOPY FLEXIBLE PROXIMAL DIAGNOSTIC performed by Jeffrey Anderson MD at [facility] COLONOSCOPY, DIAGNOSTIC (RECTUM) 12/15/2022 tubular adenoma polyp / COLONOSCOPY FLEXIBLE PROXIMAL DIAGNOSTIC performed by Riky Daniels MD at [facility] COLONOSCOPY, FLEX, W/ ENDOSCOPIC MUCOSAL RESECTION 03/17/2023 biopsies show inflammatory fibroid polyp with overlying reactive, hyperplastic changes/repeat 1 year/COLONOSCOPY, FLEXIBLE; WITH ENDOSCOPIC MUCOSAL RESECTION performed by Jose Miguel Barriga MD at [facility] COLONOSCOPY, GI REFERRAL OP 10/01/2005 tubular adenoma and hyperplastic polyps--repeat 3 years DENTAL SURGERY PROCEDURE [facility] Dental Surgery Procedure EGD, FLEXIBLE, DIAGNOSTIC 02/09/2018 normal/ESOPHAGOGASTRODUODENOSCOPY (EGD), FLEXIBLE, TRANSORAL, DIAGNOSTIC performed by Jeffrey Jaramillo MD at [facility] EGD, FLEXIBLE, DIAGNOSTIC 09/11/2021 Multiple benign gastric polyps / ESOPHAGOGASTRODUODENOSCOPY (EGD), FLEXIBLE, TRANSORAL, DIAGNOSTIC performed by Jeffrey Jaramillo MD at [facility] EGD, FLEXIBLE, DIAGNOSTIC 12/15/2022 normal / ESOPHAGOGASTRODUODENOSCOPY (EGD), FLEXIBLE, TRANSORAL, DIAGNOSTIC performed by Riky Daniels MD at [facility] EXERCISE ECHO 01/2003 no ischemic changes. Suggestion of mitral valve prolapse. INJECT DX/THER SUBSTANCE INTERLAMINAR LUMBAR/SACRAL W IMAGE GUIDE 05/07/2017 INJECTION SPINE LUMBAR OR SACRAL performed by Gallo Sebastian DO at OR [facility] INJECT DX/THER SUBSTANCE INTERLAMINAR LUMBAR/SACRAL W IMAGE GUIDE 07/30/2017 INJECTION SPINE LUMBAR OR SACRAL performed by Gallo B Cousins, DO at OR [facility] INJECT DX/THER SUBSTANCE INTERLAMINAR LUMBAR/SACRAL W IMAGE GUIDE 01/21/2018 INJECTION SPINE LUMBAR OR SACRAL performed by Gallo Sebastian, DO at OR [facility] INSERT HEART ELECTRODE, DUAL CHAMBR 06/13/2020 PARTIAL COLECTOMY W/ANASTOMOSIS 03/1998 Colectomy Partial- right REMOVAL OF KIDNEY 1965 right REMOVE TONSILS & ADENOIDS, UNDER 12 Tonsillectomy/Adenoids,<12 Y/O REPAIR BICEPS TENDON RUPTURE 1995 right REPAIR RUPTURED ROTATOR CUFF, ACUTE 01/1996 left REPAIR RUPTURED ROTATOR CUFF, ACUTE 2001 right SACROILIAC JOINT INJECT W/GUIDANCE 02/02/2020 INJECTION SACROILIAC JOINT performed by Gallo Sebastian, DO at OR [facility] SACROILIAC JOINT INJECT W/GUIDANCE 11/12/2020 INJECTION SACROILIAC JOINT performed by Gallo Sebastian, DO at OR [facility] Patient Active Problem List Diagnosis Code Esophageal reflux K21.9 Allergic rhinitis J30.9 ADVANCE DIRECTIVE INFORMATION S/p nephrectomy 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, 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 Type 2 diabetes mellitus with hemoglobin A1c goal of less than 7.0% ([facility]) E11.9 Dyslipidemia, goal LDL below 70 E78.5 Labile hypertension R09.89 REANNA on CPAP G47.33 Aortic root enlargement (HCC) 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 ([facility]) I77.810 Nonobstructive atherosclerosis of coronary artery I25.10 HTN, goal below 130/80 I10 Hx of nonmelanoma skin cancer Z85.828 Balance problems R26.89 Obesity, Class I, BMI 30.0-34.9 (see actual BMI) E66.9 Iron deficiency anemia D50.9 Persistent cough for 3 weeks or longer R05.3 Hoarseness of voice R49.0 COBIAN (dyspnea on exertion) R06.09 SVT (supraventricular tachycardia) ([facility]) I47.10 COPD, group A, by GOLD 2017 classification ([facility]) J44.9 Hx of dysplastic nevus Z86.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 BS normal, No masses, organomegaly, hernia RECTAL EXAM: normal seminal vesicles, no rectal masses, prostate 35 gm benign. GENITAL EXAM: Deferred Impression/Plan: He has an enlarged prostate or BPH. It is a condition where the gland can obstructthe flow of urine and create voiding dysfunction and possible complications like bleeding, retention of urine, and infections. We often treat with medications either alpha blockers to relax the glandor 5ARI's to shrink the gland. We discussed each of these and the risks and benefits. They can be used together for slightly better results. Surgical options include less invasive office procedures or surgical options like TURP or PVP for more difficult situations. I will keep him on both BPH medications and he will stay on the ED medication. If he wants more invasive ED treatment we can send him to [place]. We will start ditropan and get a new PSA next year. Monroe Zhang Jr, MD 2:37 PM 08/19/2023 documented in this encounter Nursing Notes * Meghan Bullard LPN - 08/19/2023 2:40 PM EDT Patient presents for routine follow up. Complains of spot on penis he's like looked. Complains of more frequent urination. documented in this encounter Plan of Treatment Upcoming Encounters Date Type Department Care Team (Late st Contact Info) Description 08/20/2023 12:45 PM EDT NeuroDiagnostic Study Neurophysiology Jacky Leyva, [place] [address] [place] [address] Major Ragland, DO [address] [facility] [place] [address] 08/31/2023 3:20 PM EDT Office Visit Family Practice [place] [facility] [address] [address] Kal Ray CRNP [address] [place] [address] 09/08/2023 2:30 PM EDT Office Visit [facility] [address] [facility] [place] [address] Gigi Phillips MD [address] [place] [address] 2023 1:30 PM EDT Office Visit Allergy/Immunology [facility] [address] [place] [address] Enrique Mcpherson MD [address] [facility] [place] [address] 10/02/2023 10:15 AM EDT Imaging Radiology [facility] [facility] [address] [facility] [place] [address] 10/15/2023 10:00 AM EDT Cardiac Studies Cardiology[facility] [address] [facility] [place] [address] [facility] [address] [facility] [place] [address] 12/17/2023 1:00 PM EDT Office Visit [facility] [address] [facility] [place] [address] Rachid Oliver DO [address] [facility] [place] [address] 08/23/2024 11:30 AM EDT Office Visit [facility]rology[facility] [address] [facility] [place] [address] Anthony Foster MD [address] [address] [place] [address] Scheduled Orders Name Type Priority Associated Diagnoses Orde r Schedule PSA Lab Routine BPH with obstruction/lower urinary tract symptoms Expected: 08/18/2024, Expires: 08/18/2024 Scheduled Procedures Name Priority Associated Diagnoses Date/Ti [...] Diagnoses Diagnosis BPH with obstruction/lower urinary tract symptoms- Primary Hypertrophy of prostate with urinary obstruction and other lower urinary tract symptoms (LUTS) OAB (overactive bladder) Hypertonicity of bladder Erectile dysfunction, unspecified erectile dysfunction type documented in this encounter Care Teams Locomotive Mechanic Relationship Specialty Start Date End Date Rachid Oliver DO [address] [place] [address] PCP - General Family Medicine 07/19/20 documented as of this encounter
[2023-11-07] MEDS: LEVOTHYROXINE SODIUM 88 MCG TABLET PO SCH (05:53)
[2023-11-07 06:18] LABS: Hematocrit (blood only) 39.8 % (42.0-52.0); Hemoglobin 13.7 g/dl (14.0-18.0); Mean Corpuscular Hemoglobin 31.1 pg (25.0-34.0); Mean Corpuscular Hgb Conc 34.4 g/dL (32.0-36.0); Mean Corpuscular Volume 90.2 fL (80.0-100.0); Mean Platelet Volume 9.7 fL (9.4-12.4); Platelet Count 158 K/uL (130-400); RDW Coefficient of Variation 12.3 % (11.5-14.5); RDW Standard Deviation 41.1 fL (36.4-46.3); Red Blood Count 4.41 M/uL (4.70-6.10); White Blood Count 6.17 K/ul (4.8-10.8)
[2023-11-07 06:35] LABS: BUN Creatinine Ratio 14.7 (10-20); Calcium 8.8 mg/dl (8.6-10.3); Creatinine Clr Calc Pharmacy 105.3 ml/min; Est GFR (African American) 106.8 ml/min; Est GFR (Non-African American) 92.1 ml/min; Phosphorus 3.7 mg/dl (2.5-4.9); Potassium 3.8 mmol/L (3.5-5.1)
[2023-11-07 07:27] LABS: Estimated Average Glucose 134 mg/dl; Hemoglobin A1C 6.3 % (4.5-5.6)
--- NOTE | 2023-11-07 08:10 | Hospitalist Progress Note ---
Date of Service November 07, 2023 Assessment & Plan (1) Syncope: (2) History of pacemaker: Plan Mr. 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 Episode of Syncopal Event H/O Tachy-Tripp Syndrome s/p Pacemaker Placement [05/2020] Syncopal episodes at home with tachy-palpitations EKG noting paced rhythm Trop negative x4 Echo 10/2022- EF 60-65%, moderate LVH, trace MR and tricuspid regurg, LV wall motion normal, septal motion was consistent with conduction abnormality Dual L subclavian pacer in place -interrogated in the ED, showing runs of VTACH, longest episode lasting ~[address] unremarkable Syncope likely cardiac related Cardiology consulted, appreciate recs -Symptomatic wide-complex tachycardia in the past felt to be atrial tachycardia mediated with prior EP testing 1 year ago -Now with recurrence of episodes longest 14 seconds in duration with associated symptoms of near syncope -Preserved LV systolic function by prior echocardiogram and no obstructive coronary disease -Initiate amiodarone 200 mg 3 times daily. -Stop verapamil. -Discussed with the EP may warrant further EP testing. -Would maintain telemetry at least additional 48 hours follow and treat blood pressure as appropriate -EKG in a.m. daily Continue home Carvedilol 25 mg twice daily Continue to monitor on telemetry Anemia Appears chronic Hg in 13 range AM anemia panel DM Type II Hold [employer] diabetic medications; SSI regimen initiated Hgba1c of 6.3 indicating adequate control Resume home meds on discharge Hypertension (HTN) Continue [employer] BP medications; PRN IV hydralazine 5mg Q6H for SBP>160. Continue home lasix Continue to monitor Dyslipidemia H/O Nonobstructive Coronary Atherosclerosis Continue [employer] aspirin and atorvastatin GERD Continue [employer] omeprazole and famotidine Hypothyroidism TSH WNL at 0.767 at time of admission Continue [employer] levothyroxine. REANNA on CPAP CPAP ordered BPH w/ LUTS H/O Overactive Bladder Follows w/ [facility] as outpatient. Continue home meds Diet: HH/DMII DVT Prophylaxis: SCDs/TEDs - For now Disposition: PT/OT ordered for further recs Admission and Anticipated Discharge Date Admission Date: November 06, 2023 Subjective pt was seen sitting up eating lunch. States that he is having headache and felt palpitations with it. Otherwise denied symptoms Review of Systems Review of Systems: All systems reviewed & are unremarkable except as noted in Subjective Physical Exam Physical Exam: General: Alert, oriented. No acute distress Skin: No noted rashes or bruises Psych: Appropriate mood and affect Neuro: No gross deficits HEENT: NC/AT CV: RRR Resp: Breath sounds clear bilaterally, no increased effort of breathing Abdomen:Soft, nontender, nondistended Extremities:edema in lower extremities bilaterally. Results & Data Results & Data Vital Signs (Past 12 Hours) Vital Signs Temp Pulse Pulse Resp BP Pulse Ox O2 Del Method 11/07/23 07:10 36.3 C L 74 18 190/90 H 98 Room Air 11/07/23 02:30 86 22 159/83 H 97 Room Air 11/07/23 00:00 73 11/06/23 22:30 36.5 C 74 20 130/79 95 Room Air Diagnostic Findings Chest X-Ray 11/06/23 12:01 XR chest 1V portable HISTORY: 78 years-old Male weakness COMPARISON: 11/11/2022 TECHNIQUE: AP view of the chest FINDINGS: There is no pneumothorax or pleural effusion. Dual lead left subclavian pacer is in place. Mild cardiomegaly is unchanged. There is no evidence for pulmonary edema. No consolidation is present. The appearance of the chest is unchanged. IMPRESSION: No acute process. ACT 112: Negative or not required by law. The above report was generated using voice recognition software. It may contain grammatical, syntax or spelling errors. Electronically signed by: Teja Paul M.D. 11/06/2023 1:[address] 11/06/23 13:29 CT head/brain wo con CLINICAL HISTORY: 78 years-old Male with Syncopal episode. Acute syncope TECHNIQUE: Multiple axial CT images of the head were obtained without contrast. A dose lowering technique was utilized adhering to the principles of ALARA. CT DOSE: 625.8 mGy.cm COMPARISON: 11/11/2022 FINDINGS: No acute intracranial hemorrhage, midline shift, intracranial mass, hydrocephalus, territorial ischemia or abnormal extra-axial collection. Involutional changes with chronic microvascular ischemic disease. The calvarium is intact. Prior bilateral lens repair. The paranasal sinuses, mastoid air cells, and middle ear cavities are clear. IMPRESSION: No acute intracranial abnormality. ACT 112: Negative or not required by law. The above report was generated using voice recognition software. It may contain grammatical, syntax or spelling errors. Electronically signed by: Teja Paul M.D. 11/06/2023 3:13 PM (1) Syncope Syncope type: unspecified Qualified Code(s): R55 - Syncope and collapse
[2023-11-07] MEDS: CETIRIZINE HCL 10 MG TABLET PO SCH (08:50)
[2023-11-07] MEDS: ATORVASTATIN 40 MG TAB PO SCH (08:50)
[2023-11-07] MEDS: CHOLECALCIFEROL 25 MCG (1000 UNITS) TAB PO SCH (08:50)
[2023-11-07] MEDS: FLUTICASONE PROPIONATE NA SPR 16 GM BTL SCH (08:50)
[2023-11-07] MEDS: FAMOTIDINE 20 MG TAB PO SCH (08:50)
[2023-11-07] MEDS: VIBEGRON 75 MG TAB PO SCH (08:51)
[2023-11-07] MEDS: FUROSEMIDE 40 MG TAB PO SCH (08:51)
[2023-11-07] MEDS: TAMSULOSIN HCL 0.4 MG CAP PO SCH (08:53)
[2023-11-07] MEDS: POTASSIUM CHLORIDE CRTAB 20 MEQ TABCR PO SCH (08:58)
[2023-11-07] MEDS ORDERED: [UNRECOGNIZED DRUG - OTHER] PO SCH (09:00)
[2023-11-07] MEDS ORDERED: WHEAT DEXTRIN PO SCH (09:00)
[2023-11-07] MEDS ORDERED: carvediloL 25 MG TAB PO SCH (09:00)
[2023-11-07] MEDS ORDERED: VERAPAMIL HCL 180 MG TABCR PO SCH (09:00)
--- NOTE | 2023-11-07 10:42 | Cardiology Progress Note ---
Date of Service November 07, 2023 Assessment & Plan (1) Wide-complex tachycardia: (2) Near syncope: (3) HTN (hypertension): (4) REANNA on CPAP: (5) Nonobstructive atherosclerosis of coronary artery: Plan Presented after syncopal episode, pacemaker interrogation shows wide complex t achycardia, longest run 14 seconds. - feels well today on exam, no presyncope or syncope - heart rates in 90s on telemetry - blood pressure elevated, unable to start amlodipine due to iodine allergy, will start hydralazine 25 mg TID - Continue amiodarone, carvedilol, losartan, furosemide, aspirin - Continue to monitor on telemetry Case discussed with supervising physician, further recommendations per Dr. Garduno. I spent a total of 30 minutes on the date of service in preparation, delivery, and documentation of the care provided to this patient excluding any time spent in the performance of separately billed services. This visit was a split-shared visit with the substantial portion of the decision making performed by the supervising rodent control worker/billing provider. Admission and Anticipated Discharge Date Admission Date: November 06, 2023 Supervising Physician Co-Signing Physician Notes I have personally performed a history and physical examination on the patient. I have reviewed the advance practitioner's documentation, and I agree with, and take responsibility for the plan of care. I spent a total of 30 minutes on the date of service in preparation, delivery, and documentation of the care provided to this patient, excluding any time spent in the performance of separately billed services. Patient doing well today. He denies chest pain, dyspnea, or syncope. Echocardiogram done yesterday shows normal left ventricular ejection fraction with moderate LVH and no significant valvular disease. No events noted on telemetry. Tolerating amiodarone well. Will need EP evaluation for EP study to find out etiology of the wide-complex tachycardia. Can consider cardiac MRI as an outpatient. His blood pressure is significantly elevated despite carvedilol, Lasix, losartan. Patient states that in the past he was on amlodipine but this was stopped due to lower extremity edema. Will start patient on hydralazine 25 mg p.o. 3 times daily and titrate until we get good blood pressure response. Subjective On evaluation today, sitting at bedside, states he is feeling well. Has been out of bed with no lightheadedness, dizziness. Denies chest pain, palpitations, shortness of breath. BP elevated this morning, 190/90, asymptomatic. Review of Systems Review of Systems: CONSTITUTIONAL: No change in weight, No weakness, No fatigue and No fevers, No sweats or chills. PULMONARY: No cough, sputum, or hemoptysis, No wheezing, No shortness of breath and No recent change in breathing. CARDIOVASCULAR: No chest pain, No dyspnea on exertion, No edema, No palpitations and No syncope. GASTROINTESTINAL: No abdominal pain, No change in bowel habits, No significant heartburn, No nausea, No vomiting, No diarrhea, No constipation, No blood in stools or black tarry stools. No dysphagia. HEMATOLOGIC: No abnormal bleeding and No bruising. NEUROLOGICAL: Normal balance, No headaches and No weakness. Physical Exam Physical Exam: General: No acute distress. A+Ox3. HEENT: Normocephalic. Atraumatic. PERRL. EOMI. Conjunctiva and sclera clear. NECK: No carotid bruits. No JVD. Carotid upstrokes are brisk. Heart: RRR. S1 and S2 noted. No murmur. No rubs or gallops. PMI non displaced. Lungs: Clear to auscultation. No wheezes. No rhonchi. No rales. Abdomen: Normal bowel sounds. Soft. Nontender. No masses or organomegaly. No abdominal bruits. Extremities: No edema. No clubbing or cyanosis. Pulses: radial=2/4, posterior tibial=2/4, dorsalis pedis = 2/4. NEURO: No focal deficits. PSYCH: Appropriate affect and insight. Results & Data Vital Signs (Past 12 Hours) Vital Signs Temp Pulse Pulse Resp BP Pulse Ox O2 Del Method 11/07/23 09:19 77 16 183/86 H 97 Room Air 11/07/23 07:10 36.3 C L 74 18 190/90 H 98 Room Air 11/07/23 02:30 86 22 159/83 H 97 Room Air 11/07/23 00:00 73 Laboratory Results Cardiac Enzymes 11/06/23 11/06/23 11/07/23 Range/Units 12:06 17:51 00:19 AST 23 (13-39) U/L Troponin I High Sens 4.7 5.6 5.7 (0-20) pg/ml 11/07/23 Range/Units 05:53 AST (13-39) U/L Troponin I High Sens 5.0 (0-20) pg/ml CBC 11/06/23 11/07/23 Range/Units 12:06 05:53 WBC 5.90 6.17 (4.8-10.8) K/ul RBC 4.59 L 4.41 L (4.70-6.10) M/uL Hgb 14.1 13.7 L (14.0-18.0) g/dl Hct 41.3 L 39.8 L (42.0-52.0) % Plt Count 181 158 (130-400) K/uL Neut # (Auto) 3.09 (1.40-6.50) K/uL Lymph # (Auto) 1.88 (1.20-3.40) K/uL [place] # (Auto) 0.71 H (0.11-0.59) K/uL Eos # (Auto) 0.15 (0.00-0.50) K/uL Baso # (Auto) 0.05 (0.00-0.20) K/uL Comprehensive Metabolic Panel 11/06/23 11/07/23 Range/Units 12:06 05:53 Sodium 137 136 (136-145) mmol/L Potassium 3.9 3.8 (3.5-5.1) mmol/L Chloride 102 103 (98-107) mmol/L Carbon Dioxide 29 28 (21-32) mmol/L BUN 7 10 (6-23) mg/dl Creatinine 0.62 0.68 (0.6-1.4) mg/dl Glucose 102 H 100 H (70-99(Fasting)) mg/dl Calcium 9.4 8.8 (8.6-10.3) mg/dl AST 23 (13-39) U/L ALT 25 (7-52) U/L Alkaline Phosphatase 58 (34-104) U/L Total Protein 6.5 (6.0-8.3) gm/dl Albumin 4.3 (3.4-5.0) gm/dl Intake and Output 11/06/23 11/07/23 11/07/23 22:59 06:59 14:59 Intake Total 240 / 740 Balance 240 / 740 Intake: Oral 240 / 240 Other: # Unmeasured Voids 1 Weight 95 kg 95.1 kg Weight Measurement Method Built in Bedscale Built in Bedscale (3) HTN (hypertension) Hypertension type: unspecified Qualified Code(s): I10 - Essential (primary) hypertension
--- NOTE | 2023-11-07 11:54 | Electrocardiogram Report ---
Test Reason : Blood Pressure : / mmHG Vent. Rate : 072 BPM Atrial Rate : 072 BPM P-R Int : 274 ms QRS Dur : 172 ms QT Int : 478 ms P-R-T Axes : 038 -65 008 degrees QTc Int : 523 ms Atrial-paced rhythm with prolonged AV conduction Right bundle branch block Left anterior fascicular block Bifascicular block Moderate voltage criteria for LVH, may be normal variant Abnormal ECG When compared with ECG of 06-NOV-2023 15:01, (unconfirmed) Criteria for Septal infarct are no longer Present T wave inversion now evident in Inferior leads Inverted T waves have replaced nonspecific T wave abnormality in Anterior leads Confirmed by Mitchell Mukherjee ([id number]) on 11/07/2023 11:54:12 AM Referred By: REFERRED SELF Confirmed By:Mitchell Mukherjee
[2023-11-07] MEDS: hydrALAZINE HCL 20 MG/ML VIAL IV PRN (12:36)
[2023-11-07] MEDS: hydrALAZINE HCL 25 MG TAB PO SCH (14:25)
[2023-11-08 05:28] LABS: Hematocrit (blood only) 40.5 % (42.0-52.0); Mean Corpuscular Hemoglobin 30.8 pg (25.0-34.0); Mean Corpuscular Hgb Conc 34.6 g/dL (32.0-36.0); Mean Corpuscular Volume 89.2 fL (80.0-100.0); Mean Platelet Volume 9.7 fL (9.4-12.4); Platelet Count 185 K/uL (130-400); RDW Coefficient of Variation 12.6 % (11.5-14.5); RDW Standard Deviation 41.2 fL (36.4-46.3); Red Blood Count 4.54 M/uL (4.70-6.10); White Blood Count 7.25 K/ul (4.8-10.8)
[2023-11-08 05:40] LABS: BUN Creatinine Ratio 15.9 (10-20); Bilirubin,Total 1.2 mg/dl (0.2-1.0); Calcium 9.3 mg/dl (8.6-10.3); Creatinine Clr Calc Pharmacy 103.8 ml/min; Est GFR (African American) 106.1 ml/min; Est GFR (Non-African American) 91.6 ml/min; Magnesium 2.1 mg/dl (1.7-2.4); Phosphorus 3.9 mg/dl (2.5-4.9); Potassium 3.4 mmol/L (3.5-5.1)
[2023-11-08 06:00] LABS: Ferritin 39.8 ng/ml (8-388)
[2023-11-08 06:06] LABS: Folate (Folic Acid),Ser orPlas > 22.30 ng/ml (>5.38); Vitamin B12 361 pg/ml (180-914)
--- NOTE | 2023-11-08 10:35 | Cardiology Progress Note ---
Date of Service November 08, 2023 Assessment & Plan (1) Wide-complex tachycardia: (2) Near syncope: (3) HTN (hypertension): (4) REANNA on CPAP: (5) Nonobstructive atherosclerosis of coronary artery: Plan Presented after syncopal episode, pacemaker interrogation shows wide complex t achycardia, longest run 14 seconds. - feels well today on exam, no presyncope or syncope - heart rates in 80s on telemetry - blood pressure elevated today, previously with edema with amlodipine, continue hydralazine 25 mg TID, monitor BP, if persistently elevated, titrate hydralazine for better BP control - Continue amiodarone, carvedilol, losartan, furosemide, aspirin - Continue to monitor on telemetry - EP evaluation as an outpatient Case discussed with supervising physician, further recommendations per Dr. Garduno. I spent a total of 30 minutes on the date of service in preparation, delivery, and documentation of the care provided to this patient excluding any time spent in the performance of separately billed services. This visit was a split-shared visit with the substantial portion of the decision making performed by the supervising industrial gas production operator/billing provider. Admission and Anticipated Discharge Date Admission Date: November 06, 2023 Supervising Physician Co-Signing Physician Notes I have personally performed a history and physical examination on the patient. I have reviewed the advance practitioner's documentation, and I agree with, and take responsibility for the plan of care. I spent a total of 35 minutes on the date of service in preparation, delivery, and documentation of the care provided to this patient, excluding any time spent in the performance of separately billed services. Subjective On evaluation today, sitting on edge of bed. Feels well, denies chest pain, palpitations, lightheadedness, dizziness. BP still elevated this morning. Review of Systems Review of Systems: CONSTITUTIONAL: No change in weight, No weakness, No fatigue and No fevers, No sweats or chills. PULMONARY: No cough, sputum, or hemoptysis, No wheezing, No shortness of breath and No recent change in breathing. CARDIOVASCULAR: No chest pain, No dyspnea on exertion, No edema, No palpitations and No syncope. GASTROINTESTINAL: No abdominal pain, No change in bowel habits, No significant heartburn, No nausea, No vomiting, No diarrhea, No constipation, No blood in stools or black tarry stools. No dysphagia. HEMATOLOGIC: No abnormal bleeding and No bruising. NEUROLOGICAL: Normal balance, No headaches and No weakness. Physical Exam Physical Exam: General: No acute distress. A+Ox3. HEENT: Normocephalic. Atraumatic. PERRL. EOMI. Conjunctiva and sclera clear. NECK: No carotid bruits. No JVD. Carotid upstrokes are brisk. Heart: RRR. S1 and S2 noted. No murmur. No rubs or gallops. PMI non displaced. Lungs: Clear to auscultation. No wheezes. No rhonchi. No rales. Abdomen: Normal bowel sounds. Soft. Nontender. No masses or organomegaly. No abdominal bruits. Extremities: No edema. No clubbing or cyanosis. Pulses: radial=2/4, posterior tibial=2/4, dorsalis pedis = 2/4. NEURO: No focal deficits. PSYCH: Appropriate affect and insight. Results & Data Vital Signs (Past 12 Hours) Vital Signs Temp Pulse Pulse Resp BP Pulse Ox O2 Del Method 11/08/23 07:33 36.3 C L 75 16 168/106 H 96 Room Air 11/08/23 02:57 78 21 175/89 H 99 CPAP 11/07/23 23:45 81 11/07/23 22:53 37.2 C 79 18 185/96 H 97 Room Air Laboratory Results Cardiac Enzymes 11/08/23 Range/Units 04:50 AST 16 (13-39) U/L CBC 11/08/23 Range/Units 04:50 WBC 7.25 (4.8-10.8) K/ul RBC 4.54 L (4.70-6.10) M/uL Hgb 14.0 (14.0-18.0) g/dl Hct 40.5 L (42.0-52.0) % Plt Count 185 (130-400) K/uL Comprehensive Metabolic Panel 11/08/23 Range/Units 04:50 Sodium 134 L (136-145) mmol/L Potassium 3.4 L (3.5-5.1) mmol/L Chloride 101 (98-107) mmol/L Carbon Dioxide 27 (21-32) mmol/L BUN 11 (6-23) mg/dl Creatinine 0.69 (0.6-1.4) mg/dl Glucose 122 H (70-99(Fasting)) mg/dl Calcium 9.3 (8.6-10.3) mg/dl AST 16 (13-39) U/L ALT 21 (7-52) U/L Alkaline Phosphatase 57 (34-104) U/L Total Protein 6.0 (6.0-8.3) gm/dl Albumin 4.0 (3.4-5.0) gm/dl Intake and Output 11/07/23 11/08/23 11/08/23 22:59 06:59 14:59 Intake Total 240 / 600 360 / 600 Balance 240 / 600 360 / 600 Intake: Oral 240 / 600 360 / 600 Other: Weight 94.2 kg Weight Measurement Method Built in [facility] Diagnostic Findings Telemetry reviewed, paced in 80s (3) HTN (hypertension) Hypertension type: unspecified Qualified Code(s): I10 - Essential (primary) hypertension
[2023-11-08] MEDS: POTASSIUM CHLORIDE CRTAB 20 MEQ TABCR PO STA (10:50)
[2023-11-08] MEDS: POLYETHYLENE (MIRALAX) 17 GM PACK PO PRN (12:26)
--- NOTE | 2023-11-08 14:19 | Hospitalist Progress Note ---
Date of Service November 08, 2023 Assessment & Plan (1) Syncope: (2) History of pacemaker: Plan Mr. 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 Episode of Syncopal Event H/O Tachy-Tripp Syndrome s/p Pacemaker Placement [05/2020] Syncopal episodes at home with tachy-palpitations EKG noting paced rhythm Trop negative x4 Echo 10/2022- EF 60-65%, moderate LVH, trace MR and tricuspid regurg, LV wall motion normal, septal motion was consistent with conduction abnormality Dual L subclavian pacer in place -interrogated in the ED, showing runs of VTACH, longest episode lasting ~[address] unremarkable Syncope likely cardiac related Cardiology consulted, appreciate recs -Symptomatic wide-complex tachycardia in the past felt to be atrial tachycardia mediated with prior EP testing 1 year ago -Now with recurrence of episodes longest 14 seconds in duration with associated symptoms of near syncope -Preserved LV systolic function by prior echocardiogram and no obstructive coronary disease -Initiate amiodarone 200 mg 3 times daily. -Stop verapamil. -Discussed with the EP may warrant further EP testing. -Would maintain telemetry at least additional 48 hours follow and treat blood pressure as appropriate -EKG in a.m. daily Continue home Carvedilol 25 mg twice daily Continue to monitor on telemetry Anemia Appears chronic Hg in 13 range AM anemia panel- all wnl DM Type II Hold REFUGE WORKER diabetic medications; SSI regimen initiated Hgba1c of 6.3 indicating adequate control Resume home meds on discharge Hypertension (HTN) Continue REFUGE WORKER BP medications; PRN IV hydralazine 5mg Q6H for SBP>160. Continue home lasix Continue to monitor Dyslipidemia H/O Nonobstructive Coronary Atherosclerosis Continue REFUGE WORKER aspirin and atorvastatin GERD Continue REFUGE WORKER omeprazole and famotidine Hypothyroidism TSH WNL at 0.767 at time of admission Continue REFUGE WORKER levothyroxine. REANNA on CPAP CPAP ordered BPH w/ LUTS H/O Overactive Bladder Follows w/ [facility] as outpatient. Continue home meds Diet: HH/DMII DVT Prophylaxis: SCDs/TEDs, heparin SQ Disposition: PT/OT ordered for further recs Admission and Anticipated Discharge Date Admission Date: November 06, 2023 Subjective pt was seen sitting up in bed. denied chest pain, headache today, notes no palpitations or syncope. Review of Systems Review of Systems: All systems reviewed & are unremarkable except as noted in Subjective Physical Exam Physical Exam: General: Alert, oriented. No acute distress Skin: No noted rashes or bruises Psych: Appropriate mood and affect Neuro: No gross deficits HEENT: NC/AT CV: RRR Resp: Breath sounds clear bilaterally, no increased effort of breathing Abdomen:Soft, nontender, nondistended Extremities:edema in lower extremities bilaterally. Results & Data Results & Data Vital Signs (Past 12 Hours) Vital Signs Temp Pulse Resp BP Pulse Ox O2 Del Method 11/08/23 11:50 37.0 C 72 18 179/98 H 98 Room Air 11/08/23 07:33 36.3 C L 75 16 168/106 H 96 Room Air 11/08/23 02:57 78 21 175/89 H 99 CPAP (1) Syncope Syncope type: unspecified Qualified Code(s): R55 - Syncope and collapse
[2023-11-08] MEDS: HEPARIN SOD 5,000 UNIT/0.5 ML VIAL SQ SCH (21:43)
[2023-11-09 06:41] LABS: Hematocrit (blood only) 41.9 % (42.0-52.0); Hemoglobin 14.6 g/dl (14.0-18.0); Mean Corpuscular Hemoglobin 31.3 pg (25.0-34.0); Mean Corpuscular Hgb Conc 34.8 g/dL (32.0-36.0); Mean Corpuscular Volume 89.7 fL (80.0-100.0); Mean Platelet Volume 9.8 fL (9.4-12.4); Platelet Count 177 K/uL (130-400); RDW Coefficient of Variation 12.7 % (11.5-14.5); RDW Standard Deviation 41.5 fL (36.4-46.3); Red Blood Count 4.67 M/uL (4.70-6.10); White Blood Count 6.64 K/ul (4.8-10.8)
[2023-11-09 07:09] LABS: Albumin Globulin Ratio 1.8 (0.9-2); Albumin Level 3.9 gm/dl (3.4-5.0); BUN Creatinine Ratio 15.6 (10-20); Calcium 9.2 mg/dl (8.6-10.3); Creatinine Clr Calc Pharmacy 111.8 ml/min; Est GFR (African American) 109.5 ml/min; Est GFR (Non-African American) 94.4 ml/min; Globulin 2.2 gm/dl (2.5-4.0); Magnesium 2.1 mg/dl (1.7-2.4); Phosphorus 3.8 mg/dl (2.5-4.9); Potassium 3.7 mmol/L (3.5-5.1); Total Protein 6.1 gm/dl (6.0-8.3)
--- NOTE | 2023-11-09 12:25 | Electrocardiogram Report ---
Test Reason : Blood Pressure : / mmHG Vent. Rate : 074 BPM Atrial Rate : 074 BPM P-R Int : 264 ms QRS Dur : 168 ms QT Int : 454 ms P-R-T Axes : 002 -65 044 degrees QTc Int : 503 ms Atrial-paced rhythm with prolonged AV conduction Right bundle branch block Left anterior fascicular block Bifascicular block Minimal voltage criteria for LVH, may be normal variant ( R in aVL ) Septal infarct (cited on or before 06-NOV-2023) Abnormal ECG When compared with ECG of 06-NOV-2023 11:57, No significant change was found Confirmed by Mitchell Mukherjee ([id number]) on 11/09/2023 12:24:45 PM Referred By: REFERRED SELF Confirmed By:Mitchell Mukherjee
--- NOTE | 2023-11-09 12:28 | Electrocardiogram Report ---
Test Reason : Blood Pressure : / mmHG Vent. Rate : 075 BPM Atrial Rate : 075 BPM P-R Int : 266 ms QRS Dur : 176 ms QT Int : 494 ms P-R-T Axes : 049 -71 010 degrees QTc Int : 551 ms Atrial-paced rhythm with prolonged AV conduction Right bundle branch block Left anterior fascicular block Bifascicular block Minimal voltage criteria for LVH, may be normal variant Abnormal ECG When compared with ECG of 07-NOV-2023 05:52, No significant change Confirmed by Mitchell Mukherjee ([id number]) on 11/09/2023 12:27:56 PM Referred By: REFERRED SELF Confirmed By:Mitchell Mukherjee
--- NOTE | 2023-11-09 13:41 | Hospitalist Progress Note ---
Date of Service November 09, 2023 Assessment & Plan (1) Syncope: (2) History of pacemaker: Plan Mr. 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 Episode of Syncopal Event H/O Tachy-Tripp Syndrome s/p Pacemaker Placement [05/2020] Syncopal episodes at home with tachy-palpitations EKG noting paced rhythm Trop negative x4 Echo 10/2022- EF 60-65%, moderate LVH, trace MR and tricuspid regurg, LV wall motion normal, septal motion was consistent with conduction abnormality Dual L subclavian pacer in place -interrogated in the ED, showing runs of VTACH, longest episode lasting ~[address] unremarkable Syncope likely cardiac related Cardiology consulted, appreciate recs -will need EP eval Continue home Carvedilol 25 mg twice daily Continue to monitor on telemetry Anemia Appears chronic Hg in 13 range AM anemia panel- all wnl DM Type II Hold SHUTTLE BUGGY OPERATOR diabetic medications; SSI regimen initiated Hgba1c of 6.3 indicating adequate control Resume home meds on discharge Hypertension (HTN) Continue SHUTTLE BUGGY OPERATOR BP medications; po hydralazine 25mg TID added by cardiology PRN IV hydralazine 5mg Q6H for SBP>160. Continue home lasix Continue to monitor Dyslipidemia H/O Nonobstructive Coronary Atherosclerosis Continue SHUTTLE BUGGY OPERATOR aspirin and atorvastatin GERD Continue SHUTTLE BUGGY OPERATOR omeprazole and famotidine Hypothyroidism TSH WNL at 0.767 at time of admission Continue SHUTTLE BUGGY OPERATOR levothyroxine. REANNA on CPAP CPAP ordered BPH w/ LUTS H/O Overactive Bladder Follows w/ [facility] as outpatient. Continue home meds Diet: HH/DMII DVT Prophylaxis: SCDs/TEDs, heparin SQ Disposition: PT/OT ordered for further recs Admission and Anticipated Discharge Date Admission Date: November 06, 2023 Subjective pt was seen sitting up in bed. Denies chest pain, SOB, palpitations, syncope, dizziness. Concerned about his blood pressure. notes that he gets lower extremity swelling from meds. Review of Systems Review of Systems: All systems reviewed & are unremarkable except as noted in Subjective Physical Exam Physical Exam: General: Alert, oriented. No acute distress Skin: No noted rashes or bruises Psych: Appropriate mood and affect Neuro: No gross deficits HEENT: NC/AT CV: RRR Resp: Breath sounds clear bilaterally, no increased effort of breathing Abdomen:Soft, nontender, nondistended Extremities:edema in lower extremities bilaterally. Results & Data Results & Data Vital Signs (Past 12 Hours) Vital Signs Temp Pulse Resp BP Pulse Ox O2 Del Method 11/09/23 11:06 36.7 C 78 19 147/78 H 95 Room Air 11/09/23 07:54 36.5 C 75 19 179/89 H 97 Room Air 11/09/23 03:44 36.5 C 80 16 151/75 H 97 BiPAP (1) Syncope Syncope type: unspecified Qualified Code(s): R55 - Syncope and collapse
--- NOTE | 2023-11-09 16:41 | Cardiology Progress Note ---
Date of Service November 09, 2023 Assessment & Plan (1) Wide-complex tachycardia: (2) Near syncope: (3) HTN (hypertension): (4) REANNA on CPAP: (5) Nonobstructive atherosclerosis of coronary artery: Plan -Continue oral amiodarone load 200 mg p.o. 3 times daily with meals, will likely transition to twice daily dosing on 11/10/2023. Follow-up with electrophysiology as an outpatient. Patient with longstanding difficult to control hypertension. Verapamil was discontinued which patient was on for hypertension and heart rate control. Previously did not tolerate amlodipine due to lower extremity edema. Will start diltiazem 120 mg daily. Continue Coreg 25 mg twice daily, furosemide 40 mg p.o. daily, hydralazine 25 mg 3 times daily, Flomax 0.4 mg daily, losartan 50 mg twice daily. Continue subcutaneous heparin for DVT prophylaxis. Admission and Anticipated Discharge Date Admission Date: November 06, 2023 Subjective Patient seen in cardiology follow-up. Overall feeling well. No recurrent syncope since admission. Telemetry reveals sinus rhythm without recurrent wide- complex tachycardia. Physical Exam Physical Exam: General: no acute distress and stated age Eyes: conjunctiva are pink and non-injected, sclera clear Neck: normal jugular venous pulse, no hepatojugular reflux Chest: normal shape and normal respiratory effort Lungs: clear to auscultation and percussion Cardiac Exam: - regular heart sounds, no murmurs, rubs, or gallops, no jugular venous distention Abdomen: abdomen soft, non-tender, no abnormal masses and no hepatosplenomegaly Musculoskeletal: no gait disturbance, no weakness Extremities: no edema and no cyanosis Neuro:awake, conversant, follows commands, no focal motor deficits Psych: appropriate affect and insight. Results & Data Vital Signs (Past 12 Hours) Vital Signs Temp Pulse Resp BP Pulse Ox O2 Del Method 11/09/23 15:34 36.3 C L 75 20 162/89 H 98 Room Air 11/09/23 13:45 145/77 H 11/09/23 11:06 36.7 C 78 19 147/78 H 95 Room Air 11/09/23 07:54 36.5 C 75 19 179/89 H 97 Room Air (3) HTN (hypertension) Hypertension type: unspecified Qualified Code(s): I10 - Essential (primary) hypertension
[2023-11-09] MEDS: dilTIAZem HCL 30 MG TAB PO ONE (17:28)
[2023-11-10] MEDS: CETIRIZINE HCL 10 MG TABLET PO ONE (05:48)
[2023-11-10 06:34] LABS: Hematocrit (blood only) 42.1 % (42.0-52.0); Hemoglobin 14.5 g/dl (14.0-18.0); Mean Corpuscular Hemoglobin 30.9 pg (25.0-34.0); Mean Corpuscular Hgb Conc 34.4 g/dL (32.0-36.0); Mean Corpuscular Volume 89.8 fL (80.0-100.0); Mean Platelet Volume 10.2 fL (9.4-12.4); Platelet Count 184 K/uL (130-400); RDW Coefficient of Variation 12.6 % (11.5-14.5); RDW Standard Deviation 41.5 fL (36.4-46.3); Red Blood Count 4.69 M/uL (4.70-6.10); White Blood Count 6.55 K/ul (4.8-10.8)
[2023-11-10 06:51] LABS: Albumin Globulin Ratio 1.7 (0.9-2); Albumin Level 3.9 gm/dl (3.4-5.0); BUN Creatinine Ratio 16.4 (10-20); Calcium 9.3 mg/dl (8.6-10.3); Creatinine Clr Calc Pharmacy 106.6 ml/min; Est GFR (African American) 107.4 ml/min; Est GFR (Non-African American) 92.7 ml/min; Globulin 2.3 gm/dl (2.5-4.0); Magnesium 2.1 mg/dl (1.7-2.4); Phosphorus 4.3 mg/dl (2.5-4.9); Potassium 3.7 mmol/L (3.5-5.1); Total Protein 6.2 gm/dl (6.0-8.3)
--- NOTE | 2023-11-10 08:31 | Hospitalist Progress Note ---
Date of Service November 10, 2023 Assessment & Plan (1) Syncope: (2) History of pacemaker: Plan Mr. 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 Episode of Syncopal Event H/O Tachy-Tripp Syndrome s/p Pacemaker Placement [05/2020] Syncopal episodes at home with tachy-palpitations EKG noting paced rhythm Trop negative x4 Echo 10/2022- EF 60-65%, moderate LVH, trace MR and tricuspid regurg, LV wall motion normal, septal motion was consistent with conduction abnormality Dual L subclavian pacer in place -interrogated in the ED, showing runs of VTACH, longest episode lasting ~[address] unremarkable Syncope likely cardiac related Cardiology consulted, appreciate recs -will need EP eval -started on amiodarone -verapamil discontinued Continue home Carvedilol 25 mg twice daily Continue to monitor on telemetry Anemia Appears chronic Hg in 13 range AM anemia panel- all wnl DM Type II Hold [employer] SUPERVISOR diabetic medications; SSI regimen initiated Hgba1c of 6.3 indicating adequate control Resume home meds on discharge Hypertension (HTN) Continue [employer]AL[employer]OL SUPERVISOR BP medications; po hydralazine 25mg TID added by cardiology PRN IV hydralazine 5mg Q6H for SBP>160. Continue home lasix Continue to monitor Dyslipidemia H/O Nonobstructive Coronary Atherosclerosis Continue [employer]AL[employer]OL SUPERVISOR aspirin and atorvastatin GERD Continue [employer] SUPERVISOR omeprazole and famotidine Hypothyroidism TSH WNL at 0.767 at time of admission Continue QUALITY CONTROL SUPERVISOR levothyroxine. REANNA on CPAP CPAP ordered BPH w/ LUTS H/O Overactive Bladder Follows w/ [facility] as outpatient. Continue home meds Diet: HH/DMII DVT Prophylaxis: SCDs/TEDs, heparin SQ Disposition: PT/OT ordered for further recs Admission and Anticipated Discharge Date Admission Date: November 06, 2023 Physical Exam Physical Exam: General: Alert, oriented. No acute distress Skin: No noted rashes or bruises Psych: Appropriate mood and affect Neuro: No gross deficits HEENT: NC/AT CV: RRR Resp: Breath sounds clear bilaterally, no increased effort of breathing Abdomen:Soft, nontender, nondistended Extremities:edema in lower extremities bilaterally. Results & Data Results & Data Vital Signs (Past 12 Hours) Vital Signs Temp Pulse Pulse Resp BP Pulse Ox O2 Del Method 11/10/23 07:11 76 19 166/88 H 95 Room Air 11/10/23 03:21 36.7 C 83 18 148/77 H 96 BiPAP 11/09/23 23:00 70 11/09/23 22:51 36.3 C L 76 20 143/78 H 97 BiPAP (1) Syncope Syncope type: unspecified Qualified Code(s): R55 - Syncope and collapse
[2023-11-10] MEDS: dilTIAZem HCL 120 MG CAPCR PO SCH (08:40)
--- NOTE | 2023-11-10 11:57 | Cardiology Progress Note ---
Date of Service November 10, 2023 Assessment & Plan (1) Wide-complex tachycardia: (2) Near syncope: (3) HTN (hypertension): (4) REANNA on CPAP: (5) Nonobstructive atherosclerosis of coronary artery: Plan -Reduce amiodarone to 200 mg twice daily. It is noted the patient has a history of topical iodine allergy with rash, but seemingly has tolerated amiodarone thus far. And previously amiodarone had been discontinued a few years ago due to vague symptoms of fatigue, not due to c oncerns of allergy. Patient with longstanding difficult to control hypertension. Verapamil was discontinued which patient was on for hypertension and heart rate control. Previously did not tolerate amlodipine due to lower extremity edema. Although patient was given a dose of the diltiazem this morning, recommend discharge to home on his previous dose of verapamil 180 mg daily. Continue Coreg 25 mg twice daily, furosemide 40 mg p.o. daily, hydralazine 25 mg 3 times daily, Flomax 0.4 mg daily, losartan 50 mg twice daily. The patient is going to monitor his blood pressure at home over the next few days and send me the results by email, future considerations include titrating his hydralazine to 50 mg 3 times daily, but given his presentation with syncope this admission, I think it is prudent to not increase his antihypertensives anymore at present. Continue subcutaneous heparin for DVT prophylaxis. Summary: Discharged on amiodarone 200 mg twice daily, otherwise medications are to remain the same Outpatient electrophysiology appointment will be arranged. Admission and Anticipated Discharge Date Admission Date: November 06, 2023 Subjective Patient seen in cardiology follow-up of syncope, wide-complex tachycardia, hypertension. Feeling well. No lightheadedness or dizziness. Has walked 4 laps in the unit today. Last night he did have some itching and took a nonsedating antihistamine, no rash however. Physical Exam Physical Exam: General: no acute distress and stated age Eyes: conjunctiva are pink and non-injected, sclera clear Neck: normal jugular venous pulse, no hepatojugular reflux Chest: normal shape and normal respiratory effort Lungs: clear to auscultation and percussion Cardiac Exam: - regular heart sounds, no murmurs, rubs, or gallops, no jugular venous distention Abdomen: abdomen soft, non-tender, no abnormal masses and no hepatosplenomegaly Musculoskeletal: no gait disturbance, no weakness Extremities: no edema and no cyanosis Neuro:awake, conversant, follows commands, no focal motor deficits Psych: appropriate affect and insight. Results & Data Vital Signs (Past 12 Hours) Vital Signs Temp Pulse Resp BP Pulse Ox O2 Del Method 11/10/23 10:44 36.4 C L 73 19 171/95 H 97 Room Air 11/10/23 07:11 76 19 166/88 H 95 Room Air 11/10/23 03:21 36.7 C 83 18 148/77 H 96 BiPAP (3) HTN (hypertension) Hypertension type: unspecified Qualified Code(s): I10 - Essential (primary) hypertension
--- NOTE | 2023-11-10 13:54 | Discharge Summary ---
Discharge Summary Date of Service November 10, 2023 Principal Dx & Hospital Course #1 = Principal Diagnosis (1) Syncope: (2) History of pacemaker: Plan Mr. 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 Episode of Syncopal Event H/O Tachy-Tripp Syndrome s/p Pacemaker Placement [05/2020] Syncopal episodes at home with tachy-palpitations EKG noting paced rhythm Trop negative x4 Echo 10/2022- EF 60-65%, moderate LVH, trace MR and tricuspid regurg, LV wall motion normal, septal motion was consistent with conduction abnormality Dual L subclavian pacer in place -interrogated in the ED, showing runs of VTACH, longest episode lasting ~[address] unremarkable Syncope likely cardiac related Cardiology consulted, recommended the following for discharge -Reduce amiodarone to 200 mg twice daily. -It is noted the patient has a history of topical iodine allergy with rash, but seemingly has tolerated amiodarone thus far. And previously amiodarone had been discontinued a few years ago due to vague symptoms of fatigue, not due to concerns of allergy. -Patient with longstanding difficult to control hypertension. -Verapamil was discontinued which patient was on for hypertension and heart rate control. -Previously did not tolerate amlodipine due to lower extremity edema. -Continue Coreg 25 mg twice daily, furosemide 40 mg p.o. daily, hydralazine 25 mg 3 times daily, Flomax 0.4 mg daily, losartan 50 mg twice daily. -After further consideration, will discontinue verapamil in favor of diltiazem CD 180 mg daily. -The patient is going to monitor his blood pressure at home over the next few days and send me the results by email, future considerations include titrating his hydralazine to 50 mg 3 times daily, but given his presentation with syncope this admission, I think it is prudent to not increase his antihypertensives anymore at present. -Outpatient electrophysiology appointment will be arranged. Diltiazem CD 180 mg daily was called into [facility]'s pharmacy by corrective therapy aide Dr Mcnair on day of discharge. Pt had no further episodes of syncope while hospitalized. Please ensure follow up with Cardiology and electrophysiology after discharge. Anemia Appears chronic Hg in 13 range Anemia panel wnl DM Type II Held [employer] OPERATOR diabetic medications; SSI regimen initiated Hgba1c of 6.3 indicating adequate control Resume home meds on discharge Hypertension (HTN) Continue losartan 50 mg twice daily po hydralazine 25mg TID added by cardiology Coreg dose increased to 25mg BID Home Verapamil discontinued Started on diltiazem CD 180mg daily Also on lasix 40mg daily Continue to monitor BP Dyslipidemia H/O Nonobstructive Coronary Atherosclerosis Continue REMELT [employer] TANK OPERATOR aspirin and atorvastatin GERD Continue REMELT [employer] TANK OPERATOR omeprazole and famotidine Hypothyroidism TSH WNL at 0.767 at time of admission Continue REMELT [employer] T[employer] OPERATOR levothyroxine. REANNA on CPAP CPAP ordered BPH w/ LUTS H/O Overactive Bladder Follows w/ [facility] as outpatient. Continue home meds Notes For Next Care Provider Please ensure Electrophysiology/cardiology follow up Medication Changes From Visit Amiodarone 200mg BID Diltiazem CD 180 mg daily (called into [facility]'s pharmacy by corrective therapy aide Dr Mcnair) Coreg 25mg BID Hydralazine 25mg TID DISCONTINUE Verapamil Admission HPI Per Admitting Provider Mr. 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 History obtained from patient and associated chart review. Patient reports that he was getting around to take his dog to the groomer this morning when all of a sudden he became very lightheaded and subsequently passed out briefly. He did not hit his head during this episode; he states his arm was resting on the washer in front of him and that caught him from falling down - avoiding any trauma. He did not have any chest pain or SOB with this episode. He was not diaphoretic either. States he felt the lightheadedness coming on and his vision had become rather blurry. He did notice some palpitations with this episode. Patient states that he had similar episodes of lightheadedness/dizziness yesterday, maybe 3-4x, but never passed out. Those episodes resolved rather quickly, as so did the one this morning. He denies any recent illnesses, fevers, cough or congestion. No vomiting or bowel habit changes. Patient senses that it may be arrhythmias causing these events. He was feeling better during our discussion; his BP has remained elevated since arrival to the ED (was 176/102 when I received sign- out). Patient notes that he took his BP after the episode this morning and it was ~167/99. He also took his blood sugar, which was 108. Admission Exam Per Admitting Provider General: NAD, sitting up in bed, pleasant, conversing appropriately. A+Ox3, euthymic affect. HEENT: Normocephalic, atraumatic. Conjunctivae normal, anicteric sclerae, oropharynx normal. Respiratory: Normal respiratory effort, lungs clear to auscultation, no wheeze, rales, rhonchi. No accessory muscle use. Cardiovascular: Regular rate, rhythm, no murmur, normal peripheral pulses, no BLE edema. Vessels: No JVD. Abdomen/GI: Normal bowel sounds, soft, nontender, no hepatosplenomegaly. Extremities/Musculoskeletal: No cyanosis or clubbing, extremities motor strength intact, moves all extremities. Neurologic: PERRL, EOMI, accommodation nl, no face palsy, no dysarthria, CN's II-XI not formally tested but appear grossly intact bilaterally. Skin: No rashes, normal color, warm/dry. Discharge Exam General: Alert, oriented. No acute distress Skin: No noted rashes or bruises Psych: Appropriate mood and affect Neuro: No gross deficits HEENT: NC/AT CV: RRR Resp: Breath sounds clear bilaterally, no increased effort of breathing Abdomen:Soft, nontender, nondistended Extremities:edema in lower extremities bilaterally. Updated Medication List Medication Instructions Recorded Confirmed Type aspirin 81 mg tablet,delayed 81 mg PO HS 08/13/19 11/06/23 History release atorvastatin 40 mg tablet 40 mg PO QAM 08/13/19 11/06/23 History fluticasone propionate 50 2 spray intranasal QA 08/13/19 11/06/23 History mcg/actuation nasal spray,suspension metformin 1,000 mg tablet 1,000 mg PO BID 08/13/19 11/06/23 History omega-3 360 lc-gih-wcd-fish oil 1 cap PO DAILY 08/13/19 11/06/23 History 1,200 mg capsule,delayed release (Fish Oil) valacyclovir 500 mg tablet 500 mg PO PM 05/14/20 11/06/23 History acetaminophen 325 mg tablet 650 mg (2 x 325 mg) PO Q4H PRN 06/14/20 11/06/23 Rx pain #50 tabs cetirizine 10 mg tablet 10 mg PO QAM 06/24/20 11/06/23 History losartan 50 mg tablet 50 mg PO BID 02/05/21 11/06/23 History tadalafil 5 mg tablet 5 mg PO DAILY 02/05/21 11/06/23 History levothyroxine 88 mcg tablet 88 mcg PO QAM 12/03/21 11/06/23 History carvedilol 25 mg tablet 25 mg PO DAILY 11/11/22 11/06/23 History cholecalciferol (vitamin D3) 50 50 mcg PO DAILY 11/11/22 11/06/23 History mcg (2,000 unit) capsule (Vitamin D3) famotidine 20 mg tablet 20 mg PO DAILY 11/11/22 11/06/23 History furosemide 40 mg tablet (Lasix) 40 mg PO DAILY 11/11/22 11/06/23 History ipratropium bromide 21 mcg (0.03 2 spray intranasal TID 11/11/22 11/06/23 History %) nasal spray tamsulosin 0.4 mg capsule (Flomax) 0.4 mg PO DAILY 11/11/22 11/06/23 History verapamil 180 mg 24 hr 180 mg PO QAM 11/11/22 11/06/23 History capsule,extended release wheat dextrin 3 gram/4 gram oral 1 packet PO DAILY 11/11/22 11/06/23 History powder (Benefiber Sugar Free (dextrin)) mirabegron 25 mg tablet,extended 25 mg PO QAM 11/06/23 11/06/23 History release 24 hr omeprazole 40 mg capsule,delayed 40 mg PO BID 11/06/23 11/06/23 History release potassium chloride 20 mEq 20 meq PO DAILY 11/06/23 11/06/23 History tablet,extended release semaglutide 2 mg/dose (8 mg/3 mL) 2 mg subcut WK 11/06/23 11/06/23 History subcutaneous pen injector (Ozempic) amiodarone 200 mg tablet 200 mg PO BIDM #60 tabs 11/10/23 Rx carvedilol 25 mg tablet 25 mg PO BID #60 tabs 11/10/23 Rx hydralazine 25 mg tablet 25 mg PO TID #90 tabs 11/10/23 Rx Hospital Stay Data Consultations 11/06/23 13:10 Consult Cardiology Stat 11/06/23 13:24 ED Decision to Admit Stat 11/06/23 13:42 Consult Cardiology Routine Diagnostic Imagining Performed 11/06/23 13:29 CT head/brain wo con Stat Chest X-Ray 11/06/23 12:01 XR chest 1V portable HISTORY: 78 years-old Male weakness COMPARISON: 11/11/2022 TECHNIQUE: AP view of the chest FINDINGS: There is no pneumothorax or pleural effusion. Dual lead left subclavian pacer is in place. Mild cardiomegaly is unchanged. There is no evidence for pulmonary edema. No consolidation is present. The appearance of the chest is unchanged. IMPRESSION: No acute process. ACT 112: Negative or not required by law. The above report was generated using voice recognition software. It may contain grammatical, syntax or spelling errors. Electronically signed by: Teja Paul M.D. 11/06/2023 1:[address] 11/06/23 13:29 CT head/brain wo con CLINICAL HISTORY: 78 years-old Male with Syncopal episode. Acute syncope TECHNIQUE: Multiple axial CT images of the head were obtained without contrast. A dose lowering technique was utilized adhering to the principles of ALARA. CT DOSE: 625.8 mGy.cm COMPARISON: 11/11/2022 FINDINGS: No acute intracranial hemorrhage, midline shift, intracranial mass, hydrocephalus, territorial ischemia or abnormal extra-axial collection. Involutional changes with chronic microvascular ischemic disease. The calvarium is intact. Prior bilateral lens repair. The paranasal sinuses, mastoid air cells, and middle ear cavities are clear. IMPRESSION: No acute intracranial abnormality. ACT 112: Negative or not required by law. The above report was generated using voice recognition software. It may contain grammatical, syntax or spelling errors. Electronically signed by: Teja Paul M.D. 11/06/2023 3:13 PM Discharge Instructions Given to Patient (Per Discharging Provider) Mr. Joseph, You were seen by Cardiology and they are recommending discharge home. They would like you to follow up with the watch mechanic for further evaluation as an outpatient. The corrective therapy aide recommends the following for discharge: -Continue taking the prescribed amiodarone 200mg twice a day -DISCONTINUE your home Verapamil -Dr Mcnair your corrective therapy aide called in a prescription for Diltiazem CD 180 mg daily for you to [facility]'s pharmacy, continue taking that at home as prescribed -Continue with your coreg 25mg TWICE a day -continue with hydralazine 25mg three times a day Continue with your other home medications as prescribed. Please keep close followup with Cardiology after discharge. Please also keep close follow up with your primary care provider after discharge. Please do not hesitate to come back to the emergency room if your symptoms worsen or return. It was a pleasure taking care of you while you were here. Total Time Total Time Spent Total Time Spent (In Minutes): 75
--- NOTE | 2023-11-10 15:27 | Communication Note ---
Date of Service: November 10, 2023 After further consideration, will discontinue verapamil in favor of diltiazem CD 180 mg daily. I called and spoke to [facility]'s pharmacy, verapamil prescription deactivated and a prescription for diltiazem sent with my verbal order. Care coordinated with Dr. Inman and patient.
[2023-11-10] MEDS: AMIODARONE 200 MG TAB PO SCH (16:28)
[2023-11-11] MEDS ORDERED: VERAPAMIL HCL 180 MG TABCR PO SCH (09:00)
[2023-11-11] MEDS ORDERED: CETIRIZINE HCL 10 MG TABLET PO SCH (09:00)
== END 2023-11-10 17:05 | disposition home or self-care (01) | DRG 310 ==
LOC: ED 10:50 → SUATTDRO 13:25 → 4W 13:25

== ENCOUNTER 2024-05-20 05:56 | Inpatient (IN) ==
--- NOTE | 2024-04-26 14:24 | PAT Medication Instructions ---
Medication Instructions Date of Service April 26, 2024 Home Medications Medication Instructions Recorded acetaminophen 325 mg tablet 650 mg (2 x 325 mg) PO Q4H PRN 06/14/20 pain #50 tabs carvedilol 25 mg tablet 25 mg PO BID #60 tabs 11/10/23 hydralazine 25 mg tablet 25 mg PO TID #90 tabs 11/10/23 aspirin 81 mg tablet,delayed release 81 mg PO HS atorvastatin 40 mg tablet 40 mg PO QAM fluticasone propionate 50 mcg/actuation nasal spray,suspension 2 spray intranasal QAM metformin 1,000 mg tablet 1,000 mg PO BID omega-3 360 uf-huk-roj-fish oil 1,200 mg capsule,delayed release (Fish Oil) 1 cap PO DAILY valacyclovir 500 mg tablet 500 mg PO HS acetaminophen 325 mg tablet 650 mg (2 x 325 mg) PO Q4H PRN pain losartan 50 mg tablet 50 mg PO BID tadalafil 5 mg tablet 5 mg PO DAILY PRN bladder issues levothyroxine 88 mcg tablet 88 mcg PO QAM cholecalciferol (vitamin D3) 50 mcg (2,000 unit) capsule (Vitamin D3) 50 mcg PO DAILY famotidine 20 mg tablet 20 mg PO QAM furosemide 40 mg tablet (Lasix) 40 mg PO QAM ipratropium bromide 21 mcg (0.03 %) nasal spray 2 spray intranasal TID tamsulosin 0.4 mg capsule (Flomax) 0.4 mg PO DAILY wheat dextrin 3 gram/4 gram oral powder (Benefiber Sugar Free (dextrin)) 1 packet PO DAILY omeprazole 40 mg capsule,delayed release 40 mg PO BID potassium chloride 20 mEq tablet,extended release 20 meq PO QAM semaglutide 2 mg/dose (8 mg/3 mL) subcutaneous pen injector (Ozempic) 2 mg subcut Q7D carvedilol 25 mg tablet 25 mg PO BID hydralazine 25 mg tablet 25 mg PO TID amiodarone 200 mg tablet 200 mg PO QAM Continue as directed tamsulosin 0.4 mg capsule (Flomax) 0.4 mg PO DAILY tadalafil 5 mg tablet 5 mg PO DAILY PRN bladder issues (if needed) ASK your prescriber and surgeon aspirin 81 mg tablet,delayed release 81 mg PO HS STOP taking 2 weeks before surgery omega-3 360 fb-exc-juu-fish oil 1,200 mg capsule,delayed release (Fish Oil) 1 cap PO DAILY STOP taking 7 days before surgery semaglutide 2 mg/dose (8 mg/3 mL) subcutaneous pen injector (Ozempic) 2 mg subcut Q7D DO NOT take the morning of surgery metformin 1,000 mg tablet 1,000 mg PO BID losartan 50 mg tablet 50 mg PO BID cholecalciferol (vitamin D3) 50 mcg (2,000 unit) capsule (Vitamin D3) 50 mcg PO DAILY furosemide 40 mg tablet (Lasix) 40 mg PO QAM wheat dextrin 3 gram/4 gram oral powder (Benefiber Sugar Free (dextrin)) 1 packet PO DAILY potassium chloride 20 mEq tablet,extended release 20 meq PO QAM Take morning of surgery With a small sip of water, OTHERWISE NOTHING TO EAT OR DRINK AFTER MIDNIGHT: atorvastatin 40 mg tablet 40 mg PO QAM fluticasone propionate 50 mcg/actuation nasal spray,suspension 2 spray intranasal QAM acetaminophen 325 mg tablet 650 mg (2 x 325 mg) PO Q4H PRN pain (if needed) levothyroxine 88 mcg tablet 88 mcg PO QAM famotidine 20 mg tablet 20 mg PO QAM ipratropium bromide 21 mcg (0.03 %) nasal spray 2 spray intranasal TID omeprazole 40 mg capsule,delayed release 40 mg PO BID carvedilol 25 mg tablet 25 mg PO BID hydralazine 25 mg tablet 25 mg PO TID amiodarone 200 mg tablet 200 mg PO QAM Take evening before surgery metformin 1,000 mg tablet 1,000 mg PO BID valacyclovir 500 mg tablet 500 mg PO HS acetaminophen 325 mg tablet 650 mg (2 x 325 mg) PO Q4H PRN pain (if needed) losartan 50 mg tablet 50 mg PO BID ipratropium bromide 21 mcg (0.03 %) nasal spray 2 spray intranasal TID omeprazole 40 mg capsule,delayed release 40 mg PO BID carvedilol 25 mg tablet 25 mg PO BID hydralazine 25 mg tablet 25 mg PO TID Other Notes If you have any questions please call us at [phone] or [phone] or [phone] or [phone]
--- NOTE | 2024-05-05 09:30 | Anesthesiology Consultation ---
Date of Service May 05, 2024 Assessment & Plan (1) Encounter for pre-operative examination: - Check BSG DOS - Infectious disease screening: Per assessment on 05/05/24- Son recently tested positive for Influenza A (household member). Patient currently asymptomatic. Advised to contact surgeon/PAT if development of symptoms prior to surgery. - Semaglutide instructions: Patient informed by PAT to stop 7 days prior to surgery- voiced understanding. DOS 05/20/24. Advised last dose to be 05/13/24. - Pending: * Awaiting upcoming PCP office visit note ([facility], appt 05/12). * Patient previously followed with [facility] for cardiology but due to insurance coverage changes, he was told that he needed to reestablish with other facility. Per recent surgeon office visit note, he is requesting preop cardiac evaluation prior to surgery. Patient wishes to reestablish with [facility] cardio. PAT departmental secretary aided in contacting [facility] cardio to try to arrange new patient/preop cardiac clearance appt. Awaiting surgeon-ordered cardiac clearance ([facility] cardio, appt 05/19 at 1300). Chart Review Chart Review: Patient seen in Pre Admission Testing Teaching & Discussion Pre-Anesthesia Teaching/Discussion Notes: Instructed NPO after midnight before surgery,except medications with 15 cc of water. Medication instructions provided according to the PAT guidelines. History Surgery Operation Date: 06/01/24 07:30 Proposed Procedures p Right L5-S1 Transforaminal Lumbar Interbody Fusion with CT Navigation with Spinal Cord Monitoring - Christopher Soto MD Height/Weight Height: 5 ft 11 in Weight: 93.3 kg Allergies Allergy/AdvReac Type Severity Reaction Status Date / Time iodine Allergy Intermediate Full body Verified 05/05/24 09:19 itching povidone-iodine Allergy Intermediate Rash Verified 04/26/24 12:57 [From Betadine] shellfish derived Allergy Intermediate Full body Verified 05/05/24 09:19 itching Medications Home Medications Medication Instructions Recorded Confirmed Last Taken aspirin 81 mg tablet,delayed 81 mg PO HS 08/13/19 04/26/24 01/05/24 release atorvastatin 40 mg tablet 40 mg PO QAM 08/13/19 04/26/24 01/06/24 fluticasone propionate 50 2 spray intranasal QAM 08/13/19 04/26/24 01/05/24 mcg/actuation nasal spray,suspension metformin 1,000 mg tablet 1,000 mg PO BID 08/13/19 04/26/24 01/05/24 omega-3 360 gi-lzh-dml-fish oil 1 cap PO DAILY 08/13/19 04/26/24 01/05/24 1,200 mg capsule,delayed release (Fish Oil) valacyclovir 500 mg tablet 500 mg PO HS 05/14/20 04/26/24 01/05/24 acetaminophen 325 mg tablet 650 mg (2 x 325 mg) PO Q4H PRN 06/14/20 04/26/24 Unknown pain #50 tabs losartan 50 mg tablet 50 mg PO BID 02/05/21 04/26/24 01/05/24 tadalafil 5 mg tablet 5 mg PO DAILY PRN bladder issues 02/05/21 04/26/24 01/05/24 levothyroxine 88 mcg tablet 88 mcg PO QAM 12/03/21 04/26/24 01/05/24 cholecalciferol (vitamin D3) 50 50 mcg PO DAILY 11/11/22 04/26/24 01/05/24 mcg (2,000 unit) capsule (Vitamin D3) famotidine 20 mg tablet 20 mg PO QAM 11/11/22 04/26/24 01/06/24 furosemide 40 mg tablet (Lasix) 40 mg PO QAM 11/11/22 04/26/24 01/05/24 ipratropium bromide 21 mcg (0.03 2 spray intranasal TID 11/11/22 04/26/24 01/05/24 %) nasal spray tamsulosin 0.4 mg capsule (Flomax) 0.4 mg PO DAILY 11/11/22 04/26/24 01/06/24 wheat dextrin 3 gram/4 gram oral 1 packet PO DAILY 11/11/22 04/26/24 01/05/24 powder (Benefiber Sugar Free (dextrin)) omeprazole 40 mg capsule,delayed 40 mg PO BID 11/06/23 04/26/24 01/06/24 release potassium chloride 20 mEq 20 meq PO QAM 11/06/23 04/26/24 01/05/24 tablet,extended release semaglutide 2 mg/dose (8 mg/3 mL) 2 mg subcut Q7D 11/06/23 04/26/24 Unknown subcutaneous pen injector (Ozempic) carvedilol 25 mg tablet 25 mg PO BID #60 tabs 11/10/23 04/26/24 01/06/24 hydralazine 25 mg tablet 25 mg PO TID #90 tabs 11/10/23 04/26/24 01/06/24 amiodarone 200 mg tablet 200 mg PO QAM 04/26/24 04/26/24 Unknown Past Medical History Medical History Diabetes mellitus, type II NIDDM GERD (gastroesophageal reflux disease) HLD (hyperlipidemia) HTN (hypertension) Hx of cold sores Hx of syncope episodes associated with the episodes of V-tach Hypothyroidism Kidney stones hx Neuropathy B/L LE neuropathy REANNA on CPAP 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 lee, [facility] cardio Exercise / Class Metabolic Activity III < 4 Walking/Shop/Light housework Past Family History Family History Mother Colorectal cancer Other Lung cancer Past Surgical History Surgical History H/O cardiac catheterization 2019 > no stents > [facility] History of appendectomy History of arthroscopy right knee ACL History of cardiac radiofrequency ablation (RFA) 11/13/22, [facility]; f/u [facility] cardiology History of colonoscopy 2023 History of cystoscopy w/ stone retrieval History of esophagogastroduodenoscopy (EGD) 2023 History of partial colectomy pre-cancerous area removed History of repair of rotator cuff bilat History of tonsillectomy Hx of left cataract extraction Hx of nasal septoplasty Hx of right cataract extraction Hx of surgical procedure right biceps tendon repair S/p nephrectomy right > post trampoline accident age 19 Past Anesthesia History No Hx of Anesthesia Complications and No Family Hx of Anesthesia Complications History of PONV No Hx of PONV and No Hx of Motion Sickness Social History Smoking Status: Former smoker Do You Dip or Chew Tobacco: No (quit 20 years ago) Smoking End Date: Quit 20 years ago Hx Alcohol Use: Yes Alcohol type: beer alcohol intake frequency: holidays/special occasions only Hx Substance Use: No substance use type: does not use Review of Systems Rare palpitations. Patient denies chest pain, shortness of breath, fever, chills, cough, wheezing. Physical Exam Vital Signs B 157/82P P 74 TEMP 98.1 SP02 98%RA RESP 16 Physical Full cervical extension range of motion. Full TMJ range of motion. TMD 3 finger breaths Mallampati Score III Dentition: missing sides/molars, + several caps Lungs: clear throughout to auscultation Cardiac: regular rate and rhythm, no murmurs noted Spine: normal Carotid arteries: negative bruit Extremities: no LE edema Lab Results Anesthesia Preop Results Results Anesthesia Widget: PT 11.9 Seconds (9.0-12.0) 05/05/24 PTT 25 Seconds (21-31) 05/05/24 INR 1.1 (0.9-1.1) 05/05/24 Blood Type A Positive 05/05/24 Antibody Screen NEGATIVE 05/05/24 Testing Laboratory Results 05/04/24 WBC 10.06 H/H 15.7/46.1 PLATELETS 227 SODIUM 140 POTASSIUM 3.9 CHLORIDE 99 CO2 29 BUN 10 CREATININE 0.7 GLUCOSE 126 HGBA1C 6.7% Electrocardiogram Date: 05/04/24 Electronic atrial pacemaker at 71 bpm. RBBB. LAFB. Bifascicular block. High QRS voltage may be normal variant or due to LVE. Septal infarct (cited on or before 02/09/2024). Chest X-Ray Date: 11/06/23 FINDINGS: There is no pneumothorax or pleural effusion. Dual lead left subclavian pacer is in place. Mild cardiomegaly is unchanged. There is no evidence for pulmonary edema. No consolidation is present. The appearance of the chest is unchanged. IMPRESSION: No acute process. Echocardiogram Date: 02/20/23 LVEF 55-59%. Grade I DD. Moderate LAE. Mild AV sclerosis. Moderately increased cLV wall thickness. Septal motion consistent with right ventricular pacemaker. Mildly enlarged aortic root (4.1cm). No significant change compared to 01/24/2021 per loader operator comparison. Stress Test Date: 01/24/21 Type: nuclear Myocardial perfusion imaging is normal. Overall LV systolic function was normal without regional wall motion abnormalities. LVEF 51%. Cardiac Catheterization Date: 02/05/21 Final impressions: Large-caliber coronaries with right dominant anatomy Mild calcification and luminal irregularities in the proximal left anterior descending and minimal luminal irregularities other vasculature with no obstruction Systolic hypertension Coronary angiography: Large caliber codominant anatomy Left main: Large in caliber and short no disease Left anterior descending: Type III in distribution. Gives rise to diagonal branches in the middle and end of its proximal third as well as 2 large septal branches. Within the left anterior descending there is mild calcification and moderate luminal irregularities in its proximal third without obstruction. Left circumflex: Large in caliber and distribution. Gives rise to a trivial first marginal branch to large obtuse marginal branches and a large posterior lateral branch. There is minimal luminal irregularities only Ramus intermedius: Trivial vessel without disease Right coronary artery: Moderately large vessel dominant in distribution. It gives rise to a sinoatrial branch at its origin a large right ventricular branch in its proximal third and acute marginal branch and at the AV groove along posterior descending artery. There is a single small posterior ventricular branch along the AV groove but it does give rise to the AV yadira artery. There are minimal luminal irregularities only. LV angiography: Not performed in order to limit contrast Hemodynamics: LV pressure 161/3 LVEDP 15, no transaortic valve gradient Recommendations: Medical Therapy and/or Counseling Other Testing Pacer check Date: 03/28/24 Mode AAIR <=> DDDR SURVEYING OR SPATIAL SCIENCE TECHNICIAN 0.4%. AP 89.8%. 9.6 years battery longevity.
[2024-05-20] MEDS ORDERED: ATROPINE SULFATE 0.1 MG/ML 10ML SYR IV PRN (06:42)
[2024-05-20] MEDS ORDERED: fentaNYL citrate PF 100 MCG/2 ML VIAL IV PRN (06:42)
[2024-05-20] MEDS ORDERED: HYDROmorphone INJ 2 MG/ML SYR/VIAL IV PRN (06:42)
[2024-05-20] MEDS ORDERED: ePHEDrine sulfate 50 MG/ML AMP IV PRN (06:42)
[2024-05-20] MEDS ORDERED: ONDANSETRON INJ 2 MG/ML 2 ML VIAL IV PRN ×2 (06:42→14:17)
[2024-05-20] MEDS: LR 15ML/HR IV SCH (06:58)
[2024-05-20] MEDS ORDERED: PROPOFOL IV EMULSION 10 MG/ML 100 ML VIAL IV ONE (06:58)
[2024-05-20] MEDS ORDERED: REMIFENTANIL HCL 1 MG VIAL IV ONE (06:58)
[2024-05-20] MEDS: LR 60ML/HR IV SCH (06:58)
[2024-05-20] MEDS ORDERED: ACETAMINOPHEN 1000 MG/100 ML IV IV ONE (06:59)
[2024-05-20] MEDS ORDERED: MIDAZOLAM HCL 1 MG/ML 2ML VIAL ONE (07:06)
[2024-05-20] MEDS ORDERED: fentaNYL citrate PF 100 MCG/2 ML VIAL ONE (07:06)
[2024-05-20] MEDS ORDERED: LIDOCAINE 2% 2 ML VIAL/AMP(20MG/ML) INFIL ONE ×2 (07:10→09:29)
[2024-05-20] MEDS ORDERED: PROPOFOL IV EMULSION 10 MG/ML 20 ML VIAL IV ONE ×2 (07:10→10:35)
[2024-05-20] MEDS ORDERED: ROCURONIUM BROMIDE 10 MG/ML 5 ML VIAL IV ONE (07:11)
[2024-05-20] MEDS: ALBUT/IPRATROP 3MG/0.5MG NEB 3 ML VIAL ONE ×2 (07:18→15:46)
[2024-05-20] MEDS: ALBUT/IPRATROP 3MG/0.5MG NEB 3 ML VIAL NEB STA ×2 (07:19→11:37)
[2024-05-20] MEDS ORDERED: ePHEDrine sulfate 50 MG/ML AMP ONE ×2 (07:20→08:43)
[2024-05-20] MEDS ORDERED: SUCCINYLCHOLINE CHLORIDE 20 MG/ML 10 ML VIAL IV ONE (07:21)
[2024-05-20] MEDS ORDERED: PHENYLEPHRINE HCL 10 MG/ML VIAL ONE (07:24)
[2024-05-20] MEDS ORDERED: VASOPRESSIN 20 UNIT/ML VIAL ONE (07:24)
--- NOTE | 2024-05-20 07:30 | History & Physical Bridge Note ---
Date of Service May 20, 2024 History & Physical Bridge Note I have examined the patient, reviewed the History & Physical and in the interval since the performance of the History & Physical I have noted the following changes of clinical significance: no changes noted. We discussed that he has severe stenosis of L5-S1 foramen and disc collapse and [facility] has authorized a decompression, I explained that we may need to remove the entire facet and perform the TLIF as planned, he is in agreement.
[2024-05-20] MEDS: ceFAZolin 2000MG 2,000 MG/15 ML SYR IV SCH ×2 (07:38→16:13)
[2024-05-20] MEDS ORDERED: KETAMINE HCL 10MG/ML SYR ONE (08:32)
[2024-05-20] MEDS ORDERED: HYDROmorphone INJ 2 MG/ML SYR/VIAL ONE (08:33)
[2024-05-20] MEDS: BUPIVACAINE/EPINEPHRINE 0.5% MPF 1:200,000 30 ML VIAL ONE (08:41)
[2024-05-20] MEDS ORDERED: ARTIFICIAL TEARS OP OINT 3.5 GM TUBE ONE (08:49)
[2024-05-20] MEDS ORDERED: ONDANSETRON INJ 2 MG/ML 2 ML VIAL ONE (09:00)
[2024-05-20] MEDS ORDERED: DEXAMETHASONE SOD INJ 4 MG/ML VIAL ONE (09:00)
[2024-05-20] MEDS ORDERED: SUGAMMADEX SODIUM 200 MG/2 ML VIAL IV ONE (09:24)
[2024-05-20] MEDS ORDERED: KETOROLAC 30 MG/ML VIAL ONE (09:27)
[2024-05-20] MEDS: VANCOMYCIN HCL 1000MG/20ML VIAL ONE (10:22)
[2024-05-20] MEDS: BUPIVACAINE 0.5 % 5 MG/1 ML MPF 30ML VIAL ONE (10:37)
[2024-05-20] MEDS: FLOSEAL HEMOSTATIC MATRIX 10ML TOP ONE (10:37)
--- NOTE | 2024-05-20 10:54 | Fluoroscopy Report ---
FL lumbar spine 2-3V CLINICAL HISTORY: L5-S1 LAMINECTOMY, POSSIBLE L5-S1 INTERBODY COMPARISON STUDY: CT lumbar spine of same FLUOROSCOPY TIME: 17.9 seconds FLUOROSCOPY IMAGES: 4 EXPOSURE DOSE: 11.74 mGy FINDINGS: Numerous retractors are noted on the first image. Subsequent images demonstrate discectomy with posterior interbody cameron and screw fusion at L5-S1. Surgical drainage catheter also is in place. Hardware appears intact. IMPRESSION: Fluoroscopic assistance as above. ACT 112: Negative or not required by law. Electronically signed by: Teja Paul M.D. 05/20/2024 10:53 AM
--- NOTE | 2024-05-20 11:03 | Post Operative Brief Note ---
PG Immediate Post Op with CF Date of Surgery May 20, 2024 Pre & Post Diagnosis Operation Date: 05/20/24 07:30 Pre-Op Diagnosis: Lumbar and Sacral Spondylarthritis, Lumbosacral Radiculopathy Post-Op Diagnosis: Lumbar and Sacral Spondylarthritis, Lumbosacral Radiculopathy I identified the patient and participated in the time-out.: Yes Procedure Operation Date: 05/20/24 07:30 Actual Procedures p L5-S1 Laminectomy with L5-S1 Transforaminal Lumbar Interbody Fusion with CT Navigation, Spinal Cord Monitoring(Not Applicable) - Christopher Soto MD Surgeon Christopher Soto MD Composition Floor Setter Ilan Mckenzie PAJessy Estimated Blood Loss 100 Findings See Below Severe facet arthrosis required facetectomy and fusion in addition to decompression Drains Navarro Drain and Camarena Catheter Anesthesia Type General Disposition Disposition: Recovery Room
--- NOTE | 2024-05-20 11:18 | Operative Report ---
PG Post Operative Report Pre & Post Diagnosis Operation Date: 05/20/24 07:30 Pre-Op Diagnosis: Lumbosacral foraminal stenosis Lumbosacral radiculopathy Lumbosacral spondylosis Post-Op Diagnosis: Lumbosacral foraminal stenosis Lumbosacral radiculopathy Lumbosacral spondylosis Iatrogenic spondylolisthesis L5-S1 I identified the patient and participated in the time-out.: Yes Procedure Operation Date: 05/20/24 07:30 Actual Procedures Transforaminal lumbar interbody fusion with posterolateral fusion L5-S1 (30098) Insertion of interbody spacer for interbody fusion L5-S1 (86692) Laminectomy at site of interbody fusion L5-S1 (87756) Posterior nonsegmental pedicle screw instrumentation L5-S1 (55527) Allograft and Autograft for Spinal Fusion (80828 and 11543) Use of CT guided stereotactic navigation for spinal instrumentation (69372) Surgeon Christopher Soto MD Uncrater Ilan Mckenzie PA-C Estimated Blood Loss 100 Findings See Below I began with decompression on the right at L5-S1, in order to decompress the exiting L5 nerve root due to severe foraminal stenosis complete facetectomy of the right L5-S1 facet joint was necessary. This led to iatrogenic instability at this level and necessitated fusion with posterior instrumentation and interbody device Specimens None Drains LEIGHTON drain Anesthesia Type General Complications none Disposition Disposition: Recovery Room Indications Patient was met in the office setting where he had symptoms of severe right L5 radiculopathy refractory to conservative care. We discussed further conservative management versus operative intervention. He was approved for lumbar laminectomy with facetectomy at the L5-S1 level. We discussed the possibility that due to the severity of the foraminal stenosis this may require a complete facetectomy to adequately decompress the exiting nerve root which would include fusion at that level. Patient understood the risk benefits as well as the risk of adjacent segment degeneration and he elected to proceed. Description of Procedure Patient was met in the preoperative holding area, surgical site was marked All questions were answered. He is brought to the operating room where general anesthesia was induced. He was placed in the prone position on the Stefan spine table. All bony prominences were padded. Camarena catheter placed, SCDs for DVT prophylaxis, neuromonitoring leads were attached. Verbal timeout performed identify the patient by name date of and verifying the correct procedure as L5-S1 decompression with possible interbody fusion. All were in agreement and elected to proceed. The navigation pin was placed into the patient's PSIS. The ImageProtect O-arm was brought in and intraoperative CT scan was performed with images uploaded to the Dinnr navigation unit for use with the navigated bur for decompression. Navigation was used to thong the level of decompression. Skin was incised with a 10 blade scalpel over the L5 and superior S1 lamina. I dissected down to the lumbodorsal fascia which was split midline over the L5 and S1 spinous process. I carried out subperiosteal dissection to expose the L5 lamina and superior S1 lamina. I then used a navigated bur to begin decortication of the L5 lamina which was then removed as a hemilaminectomy on the right. Ligamentum flavum was removed at this level to identify the dura and traversing nerve root. There was severe facet arthritis at the L5-S1 level on the right which was the patient's symptomatic side. I used a high-speed navigated bur to continue decompressing and following the L5 nerve root out. There was a large osteophyte arising from the inferior S1 facet joint compressing the exiting L5 nerve. In order to remove this osteophyte and adequately decompress the exiting L5 nerve I had to remove the entire L5-S1 facet joint on the right. There is now excellent decompression of the exiting L5 nerve as well as traversing S1 nerve however there was concern for iatrogenic instability given the amount of the facet joint removed, decision was made to proceed with fusion at this level given the iatrogenic instability. At this point I used the navigated bur to cannulate pedicle screw tracts into the L5 and S1 pedicle screws bilaterally. I used a navigated awl followed by navigated tap to cannulate the pedicle screw tracts into the L5 and S1 pedicles bilaterally. 6.5 millimeter screws were placed at L5 bilaterally and 7.5 mm diameter screws were placed at S1 bilaterally. These were stimulated by neuromonitoring and there was no evidence of breach. A repeat intraoperative CT scan was then performed. Images were uploaded to the in room viewer. I personally visualized the L5 and S1 pedicle screws bilateral ly and there was no evidence of breach. There appeared to be good decompression of the right L5-S1 foramen. I then began the interbody fusion. Pedicle screw distractor was placed at the L5 and S1 pedicle screws on the right. The L5-S1 disc space was identified on the right. The S1 nerve root and exiting L5 nerve root were held out of the way with nerve root retractors by my safety assistant. I performed a complete discectomy at the L5-S1 level removing as much disc as possible. Endplates were scraped with disc prep instruments to obtain bare bleeding bone to encourage interbody fusion. The correct interbody spacer was then selected and trialed in the disc space. A 7 mm high expandable Medtronic interbody spacer was selected. At this point I packed the disc space with allograft bone material to include demineralized bone matrix and BMP as well as morselized local autograft which was harvested from the L5 decompression of laminectomy. This mixture was packed into the disc space to encourage interbody fusion. The interbody spacer was then placed under fluoroscopic guidance and expanded to obtain good endplate contact. Pedicle screw distractor was removed. The posterior lateral gutters including sacral ala, L5 transverse process and remaining L5-S1 facet joint on the left were all decorticated with high-speed bur. These were packed with the remaining mixture of allograft and autograft to encourage posterior lateral fusion. Rods were then set in the pedicle screws at L5 and S1 bilaterally. Setscrews were applied and final tightened. Final motors were obtained, no change in amplitude. Final x-rays showed all instrumentation in good position. Drain was placed below the fascia exiting out through the skin. Vancomycin powder was applied to the skin edges for prophylaxis, the wound was then closed in layers with suture and dmitry in the skin. Drain was attached to accordion suction, sterile dressing applied. Patient was transferred back to his bed and taken to PACU in stable condition. I attest to the content of the Intraoperative Record and any orders documented therein. Any exceptions are noted below.
[2024-05-20] MEDS: HYDROmorphone INJ 1 MG/ML SYRINGE IV PRN (12:04)
--- NOTE | 2024-05-20 12:13 | Anesthesiology Progress Note ---
Date of Service May 20, 2024 Anesthesia Post Procedure Vital Signs Vital Signs: Temp Pulse Pulse Resp BP Pulse Ox O2 Del Method 05/20/24 12:05 70 17 186/108 H 99 Room Air 05/20/24 11:55 70 15 192/100 H 100 Room Air 05/20/24 11:50 177/103 H 05/20/24 11:45 36.2 C L 68 18 197/109 H 100 Aerosol Mask 05/20/24 11:35 76 19 163/102 H 100 Room Air 05/20/24 11:25 70 12 165/89 H 96 Room Air 05/20/24 11:15 69 13 159/89 H 100 Oxymask 05/20/24 11:05 69 18 143/77 H 98 Oxymask 05/20/24 10:58 36 C L 73 12 146/81 H 97 Oxymask 05/20/24 07:19 76 18 95 Room Air 05/20/24 06:45 Room Air 05/20/24 06:45 36.9 C 82 20 143/98 H 95 Room Air O2 Flow Rate 05/20/24 12:05 05/20/24 11:55 05/20/24 11:50 05/20/24 11:45 9 05/20/24 11:35 05/20/24 11:25 05/20/24 11:15 4 05/20/24 11:05 10 05/20/24 10:58 10 05/20/24 07:19 05/20/24 06:45 05/20/24 06:45 Pain Intensity Back: Pain Intensity: 4 Transfer of Care Handoff Completed per policy Notes Mental Status: alert / awake / arousable Patient Amnestic to Procedure: Yes Nausea / Vomiting: adequately controlled Pain: adequately controlled Airway Patency, RR, SpO2: stable & adequate BP & HR: stable & adequate Hydration State: stable & adequate Anesthetic Complications: no major complications apparent and Pt Satisfied with anesthetic care
[2024-05-20] MEDS: LABETALOL HCL IV 5 MG/ML 20ML IV ONE (13:01)
[2024-05-20] MEDS ORDERED: SOD PHOSPHATE/SOD BIPHOSPHATE ENEMA 132 ML BTL PR PRN (14:17)
[2024-05-20] MEDS ORDERED: LORazepam 0.5 MG TAB PO PRN (14:17)
[2024-05-20] MEDS ORDERED: LORazepam 2 MG/1 ML VIAL IV PRN (14:17)
[2024-05-20] MEDS ORDERED: DO NOT ADMINISTER FLU VACCINE PRN (14:17)
[2024-05-20] MEDS ORDERED: HYDROmorphone INJ 0.5 MG/0.5 ML SYR IV PRN (14:17)
[2024-05-20] MEDS ORDERED: FAMOTIDINE 20 MG TAB PO PRN (14:17)
[2024-05-20] MEDS ORDERED: oxyCODONE/ACETAMINOPHEN 5mg/325mg TAB PO PRN (14:17)
[2024-05-20] MEDS ORDERED: PHARMACY GLYCEMIC MGMT CONSULT PRN (14:17)
[2024-05-20] MEDS ORDERED: NALOXONE HCL 0.4 MG/1 ML VIAL/CARP IV PRN (14:17)
[2024-05-20] MEDS ORDERED: HYDROmorphone INJ 1 MG/ML SYRINGE IV PRN (14:17)
[2024-05-20] MEDS ORDERED: ONDANSETRON 4 MG OD TAB PO PRN (14:17)
[2024-05-20] MEDS ORDERED: bisacodyL 10 MG SUPP PR PRN (14:17)
[2024-05-20] MEDS ORDERED: PROMETHAZINE 12.5 MG/50.5 ML BAG IV PRN (14:17)
[2024-05-20] MEDS ORDERED: hydrOXYzine HCl 25 MG TAB PO PRN (14:17)
[2024-05-20] MEDS ORDERED: diphenhydrAMINE Capsule 25 MG CAP PO PRN (14:17)
[2024-05-20] MEDS ORDERED: DO NOT ADMINISTER PNEUMOCOCCAL VACCINE PRN (14:17)
[2024-05-20] MEDS ORDERED: ALUMINUM/MAGNESIUM SUSP 30 ML UDC PO PRN (14:17)
--- NOTE | 2024-05-20 15:19 | Pharmacy Report ---
Pharmacy Glycemic Short Note 2 - Date of Service May 20, 2024 - Glycemic Short BSG Results (Last 24 hours): 05/20/24 05/20/24 06:27 11:02 POC Glucose 133 H 144 H OUTPATIENT ANTIDIABETIC REGIMEN: * metformin 1000mg po BID * Ozempic 2mg SQ q 7 days HbA1c 6.3% on 11/06/24, new lab ordered for 05/21 with morning labs ASSESSMENT: * 78 year old male admitted today for a laminectomy (POD#0). Pharmacy was consul danya for glycemic management postop. * BSG preop was 133mg/dL and BSG post op was 144mg/dL. Patient did receive 8mg iv dexamethasone preop. * Will not start Lantus now, will reassess need tomorrow morning. * Weight based bolus insulin with a stress between 1 and 2 has been ordered to start with dinner today. PLAN FOR INPATIENT GLYCEMIC CONTROL: * Hold outpatient oral diabetes medications * Basal insulin * hold, will reassess need tomorrow morning * Bolus insulin * NovoLog per scale ACHS or Q6hrs while NPO * Goal Range: Low 110 mg/dL - High 150 mg/dL * Correction Factor: 30 mg/dL/unit * Nutritional / Prandial insulin per carb ratio of 1 unit per 10 grams CHO consumed
[2024-05-20] MEDS ORDERED: hydrALAZINE HCL 20 MG/ML VIAL IV PRN (15:24)
--- NOTE | 2024-05-20 15:41 | Hospitalist Consultation ---
Date of Consultation May 20, 2024 Assessment & Plan (1) Lumbosacral radiculopathy: Elective surgery today per Dr. Soto. Postop management per orthopedic spine team (2) Diabetes mellitus, type II: ADA diet. Sliding scale coverage. Metformin is on hold (3) Nonobstructive atherosclerosis of coronary artery: Stable. Continue current medical management (4) HLD (hyperlipidemia): Stable. Continue statin therapy (5) Hypertension: Stable. Continue carvedilol, diltiazem, hydralazine. As needed IV hydralazine if needed (6) Primary hypothyroidism: Stable. Continue current thyroid replacement Plan The hospitalist service will see the patient daily and manage the medical problems until discharge. Thank you for the consultation History of Present Illness Reason for Consultation: Medical management Requesting Physician: Dr. Soto Attending Physician: Christopher Soto MD History of Present Illness 78-year-old white male who underwent elective lumbar spine surgery today, May 20. The hospitalist medical service was consulted to manage his multiple medical problems postoperatively. Allergies Allergy/AdvReac Type Severity Reaction Status Date / Time iodine Allergy Intermediate Full body Verified 05/20/24 06:31 itching povidone-iodine Allergy Intermediate Rash Verified 05/20/24 06:31 [From Betadine] shellfish derived Allergy Intermediate Full body Verified 05/20/24 06:31 itching Home Medications Medication Instructions Recorded Confirmed Type aspirin 81 mg tablet,delayed 81 mg PO HS 08/13/19 05/20/24 History release atorvastatin 40 mg tablet 40 mg PO QAM 08/13/19 05/20/24 History fluticasone propionate 50 2 spray intranasal QA 08/13/19 05/20/24 History mcg/actuation nasal spray,suspension metformin 1,000 mg tablet 1,000 mg PO BID 08/13/19 05/20/24 History omega-3 360 vt-sfp-twu-fish oil 1 cap PO DAILY 08/13/19 05/20/24 History 1,200 mg capsule,delayed release (Fish Oil) valacyclovir 500 mg tablet 500 mg PO HS 05/14/20 05/20/24 History acetaminophen 325 mg tablet 650 mg (2 x 325 mg) PO Q4H PRN 06/14/20 05/20/24 Rx pain #50 tabs losartan 50 mg tablet 50 mg PO BID 02/05/21 05/20/24 History tadalafil 5 mg tablet 5 mg PO DAILY PRN bladder issues 02/05/21 05/20/24 History levothyroxine 88 mcg tablet 88 mcg PO QAM 12/03/21 05/20/24 History cholecalciferol (vitamin D3) 50 50 mcg PO DAILY 11/11/22 05/20/24 History mcg (2,000 unit) capsule (Vitamin D3) famotidine 20 mg tablet 20 mg PO QAM 11/11/22 05/20/24 History furosemide 40 mg tablet (Lasix) 40 mg PO QAM 11/11/22 05/20/24 History ipratropium bromide 21 mcg (0.03 2 spray intranasal TID 11/11/22 05/20/24 History %) nasal spray wheat dextrin 3 gram/4 gram oral 1 packet PO DAILY 11/11/22 05/20/24 History powder (Benefiber Sugar Free (dextrin)) omeprazole 40 mg capsule,delayed 40 mg PO BID 11/06/23 05/20/24 History release potassium chloride 20 mEq 20 meq PO QAM 11/06/23 05/20/24 History tablet,extended release semaglutide 2 mg/dose (8 mg/3 mL) 2 mg subcut Q7D 11/06/23 05/20/24 History subcutaneous pen injector (Ozempic) carvedilol 25 mg tablet 25 mg PO BID #60 tabs 11/10/23 05/20/24 Rx hydralazine 25 mg tablet 25 mg PO TID #90 tabs 11/10/23 05/20/24 Rx amiodarone 200 mg tablet 200 mg PO QAM 04/26/24 05/20/24 History diltiazem HCl 180 mg capsule,24 180 mg PO DAILY #30 caps 05/06/24 05/20/24 Rx hr,extended release Patient History Medical History V-tach History of pacemaker SVT (supraventricular tachycardia) Ascending aorta dilatation Hx of syncope HTN (hypertension) HLD (hyperlipidemia) Diabetes mellitus, type II GERD (gastroesophageal reflux disease) REANNA on CPAP Hx of cold sores Kidney stones Neuropathy Pacemaker Surgical History History of cardiac radiofrequency ablation (RFA) 11/13/22, [facility]; f/u [facility] Hx of right cataract extraction Hx of left cataract extraction History of cystoscopy w/ stone retrieval History of repair of rotator cuff bilat Hx of surgical procedure right biceps tendon repair History of arthroscopy right knee ACL History of esophagogastroduodenoscopy (EGD) 2023 History of colonoscopy 2023 History of appendectomy Hx of nasal septoplasty History of partial colectomy pre-cancerous area removed History of tonsillectomy S/p nephrectomy right > post trampoline accident age 19 H/O cardiac catheterization 2020 > no stents > [facility] Family History (Updated 05/12/24 @ 16:53 by LAURA Head III) Mother Colorectal cancer Father Lung cancer Denies family history of Ovarian cancer Prostate cancer Myocardial infarction Breast cancer Social History Smoking Status: Former smoker Tobacco Type: Cigarettes Age Started Using Tobacco: 22; Age Quit Using Tobacco: 36; packs per day: 0.5; Smoking End Date: Quit 20 years ago; Second Hand Exposure: No; Do You Dip or Chew Tobacco: No; Tobacco Cessation Education Requested by Patient: No Hx Alcohol Use: Yes Alcohol type: beer Alcohol Intake Frequency: Monthly or Les s Hx Substance Use: No Preferred Language: Azeri Communication Ability: Effective Hearing Ability: Use of Hearing Aid [employer] Required: No Beliefs That Will Affect Care: None marital status: Current Living Situation: Family Current Living Situation Comment: son lives with pt current occupational status: retired Other Information That Helps Us Care for You: No Feels Safe at Home: Yes Safety Concerns: Feels Safe At This Time Childhood Exposure to Second-Hand Smoke: No Dental Care, Regularly: Yes Physical Activity Frequency: 1-2 Times per Week Seatbelt Use: always Sunscreen Use: Yes Assistive Devices: CPAP, Glasses, Hearing Aid - Bilateral and Hospital Bed Assistive Devices Comment: reading glasses prn Review of Systems Review of Systems: Constitutionalno fever or chills ENTno blurred vision, no double vision, no epistaxis, no sore throat Respiratoryno cough, no wheezing, no shortness of breath Cardiacno palpitations, no chest pain, no syncope Lois nausea, vomiting, diarrhea, melena, hematochezia GUno urinary retention, no urinary incontinence, no dysuria, no hematuria Musculoskeletalno joint pain, no muscle tenderness. Lumbar pain necessitated surgery today, May 20 Skinno bruising, no rashes, no pruritus Neurono isolated weakness, no paresthesia, no weakness Psychno depression, no anxiety Physical Exam Physical Exam: General-alert and oriented x3, no fever, no chills HEENT-head atraumatic and normocephalic, pupils equal and reactive to light, ex traocular muscles intact Neck-no lymphadenopathy or thyromegaly, trachea midline Chest-clear to auscultation. No rales, wheezing or rhonchi Cardiac-regular rate and rhythm, normal S1 and S2 Abdomen-normal bowel sounds, no hepatosplenomegaly Extremities-no cyanosis, clubbing, or edema. Postoperative lumbar discomfort as expected Neuro-cranial nerves II through XII intact, motor and sensory function within normal limits, strength symmetrical, no focal deficits Psych-normal affect, normal mood Results & Data Results & Data Vital Signs (Past 12 Hours) Vital Signs Temp Pulse Pulse Pulse Resp BP BP 05/20/24 15:00 36.4 C L 71 18 139/76 05/20/24 14:40 05/20/24 14:17 36.3 C L 70 18 160/84 H 05/20/24 13:45 71 19 150/93 H 05/20/24 13:30 70 19 169/106 H 05/20/24 13:20 36.3 C L 71 19 150/88 H 05/20/24 13:10 70 20 164/88 H 05/20/24 13:01 70 169/102 H 05/20/24 13:00 71 15 184/100 H 05/20/24 12:50 71 12 188/103 H 05/20/24 12:40 70 14 174/94 H 05/20/24 12:35 70 20 185/100 H 05/20/24 12:25 70 23 178/102 H 05/20/24 12:15 70 16 191/109 H 05/20/24 12:05 70 17 186/108 H 05/20/24 11:55 70 15 192/100 H 05/20/24 11:50 177/103 H 05/20/24 11:45 36.2 C L 68 18 197/109 H 05/20/24 11:35 76 19 163/102 H 05/20/24 11:25 70 12 165/89 H 05/20/24 11:15 69 13 159/89 H 05/20/24 11:05 69 18 143/77 H 05/20/24 10:58 36 C L 73 12 146/81 H 05/20/24 07:19 76 18 05/20/24 06:45 05/20/24 06:45 36.9 C 82 20 143/98 H Pulse Ox O2 Del Method O2 Flow Rate 05/20/24 15:00 95 Room Air 05/20/24 14:40 Room Air 05/20/24 14:17 96 Room Air 05/20/24 13:45 92 Room Air 05/20/24 13:30 98 Room Air 05/20/24 13:20 98 Room Air 05/20/24 13:10 92 Room Air 05/20/24 13:01 05/20/24 13:00 95 Room Air 05/20/24 12:50 98 Room Air 05/20/24 12:40 94 Room Air 05/20/24 12:35 94 Room Air 05/20/24 12:25 97 Room Air 05/20/24 12:15 99 Room Air 05/20/24 12:05 99 Room Air 05/20/24 11:55 100 Room Air 05/20/24 11:50 05/20/24 11:45 100 Aerosol Mask 9 05/20/24 11:35 100 Room Air 05/20/24 11:25 96 Room Air 05/20/24 11:15 100 Oxymask 4 05/20/24 11:05 98 Oxymask 10 05/20/24 10:58 97 Oxymask 10 05/20/24 07:19 95 Room Air 05/20/24 06:45 Room Air 05/20/24 06:45 95 Room Air PG Care Time/CCT Total # of Minutes Spent Total Time Spent with Patient: Total time spent is greater than 50% in coordination of care (as documented) at patient's floor/unit and/or counseling patient: Coding Level of Care Code 45176 IN/OBS CONSULT LVL 3,45M Diagnoses Lumbosacral radiculopathy M54.17 Type 2 diabetes mellitus without complication, without long-term current use of insulin E11.9 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: without 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 use Diabetes mellitus complication status: without complication Nonobstructive atherosclerosis of coronary artery I25.10 Mixed hyperlipidemia E78.2 Hyperlipidemia type: mixed hyperlipidemia Primary hypertension I10 Hypertension type: primary hypertension Primary hypothyroidism E03.9 (2) Diabetes mellitus, type II Diabetes mellitus usp insulin use: without usp use Diabetes mellitus complication status: without complication Qualified Code(s): E11.9 - Type 2 diabetes mellitus without complications (4) HLD (hyperlipidemia) Hyperlipidemia type: mixed hyperlipidemia Qualified Code(s): E78.2 - Mixed hyperlipidemia (5) Hypertension Hypertension type: primary hypertension Qualified Code(s): I10 - Essential (primary) hypertension
[2024-05-20] MEDS: FAMOTIDINE/PF 20 MG/2 ML VIAL IV ONE (15:46)
[2024-05-20] MEDS: LABETALOL HCL IV 5 MG/ML 20ML IV STA (15:46)
[2024-05-20] MEDS: hydrALAZINE HCL 25 MG TAB PO SCH (16:10)
[2024-05-20] MEDS: carvediloL 25 MG TAB PO SCH (16:11)
[2024-05-20] MEDS: INSULIN ASPART PER UNIT CHARGE SC SCH (17:03)
[2024-05-20] MEDS: ACETAMINOPHEN 500 MG TAB PO PRN (17:45)
[2024-05-20] MEDS: valACYclovir HCL 500 MG TABLET PO SCH (21:24)
[2024-05-20] MEDS: ASPIRIN 81 MG ECTAB PO SCH (21:25)
[2024-05-20] MEDS: PANTOprazole 40 MG TAB PO SCH (21:25)
[2024-05-20] MEDS: IPRATROPIUM BROMIDE NASAL SPRAY 0.06% 15ML NAE SCH (21:26)
[2024-05-20] MEDS: DOCUSATE SODIUM/SENNA 50/8.6MG TAB PO SCH (21:35)
[2024-05-21] MEDS: ALBUT/IPRATROP 3MG/0.5MG NEB 3 ML VIAL NEB STA (03:01)
[2024-05-21] MEDS: ALBUT/IPRATROP 3MG/0.5MG NEB 3 ML VIAL ONE (03:02)
[2024-05-21 05:01] LABS: Basophils # (auto) 0.02 K/uL (0.00-0.20); Basophils % (auto) 0.2 %; Eosinophils # (auto) 0.01 K/uL (0.00-0.50); Eosinophils % (auto) 0.1 %; Hematocrit (blood only) 35.6 % (42.0-52.0); Hemoglobin 12.8 g/dl (14.0-18.0); Immature Granulocytes # (auto) 0.18 K/uL (0.01-0.20); Immature Granulocytes % (auto) 1.4 %; Lymphocytes # (auto) 1.42 K/uL (1.20-3.40); Lymphocytes % (auto) 10.7 %; Mean Corpuscular Hemoglobin 31.9 pg (25.0-34.0); Mean Corpuscular Volume 88.8 fL (80.0-100.0); Mean Platelet Volume 9.6 fL (9.4-12.4); Monocytes # (auto) 1.31 K/uL (0.11-0.59); Monocytes % (auto) 9.9 %; Neutrophils # (auto) 10.33 K/uL (1.40-6.50); Neutrophils % (auto) 77.7 %; Platelet Count 246 K/uL (130-400); RDW Coefficient of Variation 12.5 % (11.5-14.5); RDW Standard Deviation 41.1 fL (36.4-46.3); Red Blood Count 4.01 M/uL (4.70-6.10); White Blood Count 13.27 K/ul (4.8-10.8)
[2024-05-21 05:11] LABS: Potassium 3.8 mmol/L (3.5-5.1)
[2024-05-21 05:12] LABS: BUN Creatinine Ratio 10.4 (10-20); Calcium 8.4 mg/dl (8.6-10.3); Creatinine Clr Calc Pharmacy 98.3 ml/min
[2024-05-21] MEDS: LEVOTHYROXINE SODIUM 88 MCG TABLET PO SCH (06:05)
[2024-05-21] MEDS: POLYETHYLENE (MIRALAX) 17 GM PACK PO SCH (06:05)
[2024-05-21 07:34] LABS: Estimated Average Glucose 146 mg/dl; Hemoglobin A1C 6.7 % (4.5-5.6)
[2024-05-21] MEDS: OMEGA-3 (PURIFIED FISH OIL) 1 GM CAP PO SCH (08:01)
[2024-05-21] MEDS: FLUTICASONE PROPIONATE NA SPR 16 GM BTL NAE SCH (08:02)
[2024-05-21] MEDS: FAMOTIDINE 20 MG TAB PO SCH (08:09)
[2024-05-21] MEDS: ATORVASTATIN 40 MG TAB PO SCH (08:09)
[2024-05-21] MEDS: POTASSIUM CHLORIDE CRTAB 20 MEQ TABCR PO SCH (08:09)
[2024-05-21] MEDS: CHOLECALCIFEROL 25 MCG (1000 UNITS) TAB PO SCH (08:09)
[2024-05-21] MEDS: dilTIAZem HCL 180 MG CAPCR PO SCH (08:09)
[2024-05-21] MEDS: AMIODARONE 200 MG TAB PO SCH (08:10)
[2024-05-21] MEDS: ALBUT/IPRATROP 3MG/0.5MG NEB 3 ML VIAL NEB PRN (09:44)
--- NOTE | 2024-05-21 09:44 | Orthopedic Progress Note ---
Date of Service May 21, 2024 Assessment & Plan (1) S/P lumbar fusion: wbat, aat with PT cont drain, check every 4-8 hours pain control - percocet, tylenol, robaxin prn SCDs, ambulate appreciate hospitalist assistance with medical comorbidities Subjective No leg pain, minimal incisional pain controlled by tylenol. Required breathing treatment overnight, anxious to start PT. Review of Systems All systems reviewed & are unremarkable except as noted in HPI & below. Physical Exam drain functioning L2-S1 no motor, sensory deficits Results & Data Results & Data Laboratory Results . Diagnostic Findings . PG Care Time/CCT Total # of Minutes Spent Total Time Spent with Patient: Total time spent is greater than 50% in coordination of care (as documented) at patient's floor/unit and/or counseling patient: Coding Level of Care Code 65870 Post Operative Follow-Up Diagnoses S/P lumbar fusion Z98.1
--- NOTE | 2024-05-21 12:15 | Hospitalist Progress Note ---
Date of Service May 21, 2024 Assessment & Plan (1) Abnormal breath sounds: Plan: Rather sudden onset suggests aspiration of gastric contents although he denies choking or vomiting. Scheduled DuoNebs ordered. Will follow (2) Lumbosacral radiculopathy: Plan: Elective surgery today per Dr. Soto. Postop management per orthopedic spine team. Postoperative day #1 (3) Diabetes mellitus, type II: Plan: ADA diet. Sliding scale coverage. Metformin is on hold. Glucose is currently acceptable (4) Nonobstructive atherosclerosis of coronary artery: Plan: Stable. Continue current medical management (5) HLD (hyperlipidemia): Plan: Stable. Continue statin therapy (6) Hypertension: Plan: Stable. Continue carvedilol, diltiazem, hydralazine. As needed IV hydralazine if needed (7) Primary hypothyroidism: Plan: Stable. Continue current thyroid replacement Plan If any fever develops or pulmonary symptoms progress, will obtain a chest x-ray. Admission and Anticipated Discharge Date Admission Date: May 20, 2024 Subjective Alert and oriented. No distress. He has developed some coughing and wheezing. Examination is most acute with aspiration of gastric contents although he denies vomiting or choking. Scheduled nebulizers have been ordered. He remains on room air. Glucose this morning is 139, acceptable. Blood pressure is mildly elevated but acceptable. Postoperative day #1 after lumbar surgery. Review of Systems 2 Review of Systems: Constitutionalno fever or chills ENTno blurred vision, no double vision, no epistaxis, no sore throat Respiratorynonproductive cough and wheezing. No hemoptysis. Cardiacno palpitations, no chest pain, no syncope Lois nausea, vomiting, diarrhea, melena, hematochezia GUno urinary retention, no urinary incontinence, no dysuria, no hematuria Musculoskeletalno joint pain, no muscle tenderness. Lumbar pain necessitated surgery today, May 20 Skinno bruising, no rashes, no pruritus Neurono isolated weakness, no paresthesia, no weakness Psychno depression, no anxiety Physical Exam 2 Physical Exam: General-alert and oriented x3, no fever, no chills HEENT-head atraumatic and normocephalic, pupils equal and reactive to light, extraocular muscles intact Neck-no lymphadenopathy or thyromegaly, trachea midline Chest-scattered bilateral rhonchi and expiratory wheezes. No dullness to percussion. Cardiac -regular rate and rhythm, normal S1 and S2 Abdomen-normal bowel sounds, no hepatosplenomegaly Extremities-no cyanosis, clubbing, or edema. Postoperative lumbar discomfort as expected Neuro-cranial nerves II through XII intact, motor and sensory function within normal limits, strength symmetrical, no focal deficits Psych-normal affect, normal mood Results & Data Results & Data Vital Signs (Past 12 Hours) Vital Signs Temp Pulse Pulse Resp BP Pulse Ox O2 Del Method 05/21/24 11:06 36.6 C 71 18 147/72 H 95 Room Air 05/21/24 09:46 77 18 95 Room Air 05/21/24 07:59 36.4 C L 77 18 156/84 H 94 Room Air 05/21/24 07:50 Room Air 05/21/24 03:02 75 18 94 Room Air 05/21/24 02:59 36.6 C 72 20 175/83 H 94 Room Air Laboratory Results 05/21/24 04:21 05/21/24 04:21 PG Care Time/CCT Total # of Minutes Spent Total Time Spent with Patient: Total time spent is greater than 50% in coordination of care (as documented) at patient's floor/unit and/or counseling patient: Coding Level of Care Code 98244 SUB INP/OBS CARE 3/50MIN Diagnoses Abnormal breath sounds R06.89 Lumbosacral radiculopathy M54.17 Type 2 diabetes mellitus without complication, without long-term current use of insulin E11.9 Diabetes mellitus mcc insulin use: without mcc use Diabetes mellitus complication status: without complication Nonobstructive atherosclerosis of coronary artery I25.10 Mixed hyperlipidemia E78.2 Hyperlipidemia type: mixed hyperlipidemia Primary hypertension I10 Hypertension type: primary hypertension Primary hypothyroidism E03.9 (3) Diabetes mellitus, type II 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
[2024-05-21] MEDS ORDERED: ALBUT/IPRATROP 3MG/0.5MG NEB 3 ML VIAL NEB SCH (13:00)
[2024-05-21] MEDS: ALBUT/IPRATROP 3MG/0.5MG NEB 3 ML VIAL NEB SCH (15:22)
--- NOTE | 2024-05-21 15:44 | XRay Report ---
INDICATION: Back pain. TECHNIQUE: 2 views of the lumbar spine. COMPARISON: Radiograph from 04/05/2024. FINDINGS/IMPRESSION: Interval placement of posterior fusion hardware with intervertebral disc material at L5-S1. Hardware appears intact. No acute fracture. Multilevel disc base narrowing and facet arthropathy similar to prior. Skin sutures noted posteriorly. Electronically signed by Wallace Knowles 05-21-2024 3:43 PM
[2024-05-21] MEDS: METHOCARBAMOL 750 MG TABLET PO PRN (20:43)
[2024-05-22] MEDS: ALBUT/IPRATROP 3MG/0.5MG NEB 3 ML VIAL NEB PRN (00:19)
[2024-05-22 07:12] VITALS: RESP 18
--- NOTE | 2024-05-22 10:44 | XRay Report ---
XR chest 1V portable CLINICAL HISTORY: cough, congestion post op day 2 COMPARISON STUDY: 11/06/2023 FINDINGS: Stable pacemaker. Heart size and pulmonary vasculature are normal. No effusion, consolidati on, or pneumothorax. IMPRESSION: No pneumonia seen. ACT 112: Negative or not required by law. Electronically signed by: Jimmie Tobar M.D. 05/22/2024 10:42 AM
--- NOTE | 2024-05-22 10:50 | Orthopedic Progress Note ---
Date of Service May 22, 2024 Assessment & Plan (1) S/P lumbar fusion: Weight-bear as tolerated and mobilize with physical therapy as tolerated SCDs Will change dressing today, possibly discontinue lumbar drain pending output Appreciate hospitalist recommendations as far as continued congestion and cough Possible discharge later today or tomorrow Subjective Patient doing well, pain is controlled by the Tylenol, he is ambulating with physical therapy. Does not report any radicular pain. Persistent cough, chest x-ray obtained this morning does not show any signs of pneumonia or abnormal consolidations. Drain has slowed down. Review of Systems All systems reviewed & are unremarkable except as noted in HPI & below. Physical Exam 5 out of 5 strength bilateral L2-S1 myotomes Sensation intact to light touch L2-S1 Drain has approximately 50 cc out over the last 12 hours Results & Data Results & Data Laboratory Results . Diagnostic Findings . PG Care Time/CCT Total # of Minutes Spent Total Time Spent with Patient: Total time spent is greater than 50% in coordination of care (as documented) at patient's floor/unit and/or counseling patient: Coding Level of Care Code 42311 Post Operative Follow-Up Diagnoses S/P lumbar fusion Z98.1
[2024-05-22 11:27] VITALS: TEMP 98.2
--- NOTE | 2024-05-22 13:28 | Hospitalist Progress Note ---
Date of Service May 22, 2024 Assessment & Plan (1) Abnormal breath sounds: Plan: Rather sudden onset yesterday on May 22, suggestive aspiration of gastric contents although he denies choking or vomiting. He is much improved today and chest x-ray done today, May 22, is unremarkable. Treated while hospitalized with scheduled DuoNebs. (2) Lumbosacral radiculopathy: Plan: Elective surgery performed May 21 byKamari Soto. Postop management per orthopedic spine team. Postoperative day #2 (3) Diabetes mellitus, type II: Plan: ADA diet. Sliding scale coverage. Metformin is on hold and can be restarted at discharge. Glucose is currently acceptable (4) Nonobstructive atherosclerosis of coronary artery: Plan: Stable. Continue current medical management (5) HLD (hyperlipidemia): Plan: Stable. Continue statin therapy (6) Hypertension: Plan: Stable. Continue carvedilol, diltiazem, hydralazine. As needed IV hydralazine if needed (7) Primary hypothyroidism: Plan: Stable. Continue current thyroid replacement Plan Medically stable for discharge home todayMay 22, per primary service Admission and Anticipated Discharge Date Admission Date: May 20, 2024 Subjective Alert and oriented. No distress. Chest x-ray done today, May 22, is unremarkable. He still has some coughing but otherwise is medically stable on room air. From a medical standpoint, he can be discharged home today, May 22 Review of Systems 2 Review of Systems: Constitutionalno fever or chills ENTno blurred vision, no double vision, no epistaxis, no sore throat Respiratorynonproductive cough. Wheezing is resolved. No hemoptysis. Cardiacno palpitations, no chest pain, no syncope Lois nausea, vomiting, diarrhea, melena, hematochezia GUno urinary retention, no urinary incontinence, no dysuria, no hematuria Musculoskeletalno joint pain, no muscle tenderness. Lumbar pain necessitated surgery today, May 20 Skinno bruising, no rashes, no pruritus Neurono isolated weakness, no paresthesia, no weakness Psychno depression, no anxiety Physical Exam 2 Physical Exam: General-alert and oriented x3, no fever, no chills HEENT-head atraumatic and normocephalic, pupils equal and reactive to light, extraocular muscles intact Neck-no lymphadenopathy or thyromegaly, trachea midline Chest-scattered bilateral rhonchi. No audible wheezes. No dullness to percussion. Cardiac -regular rate and rhythm, normal S1 and S2 Abdomen-normal bowel sounds, no hepatosplenomegaly Extremities-no cyanosis, clubbing, or edema. Postoperative lumbar discomfort as expected Neuro-cranial nerves II through XII intact, motor and sensory function within normal limits, strength symmetrical, no focal deficits Psych-normal affect, normal mood Results & Data Results & Data Vital Signs (Past 12 Hours) Vital Signs Temp Pulse Resp BP Pulse Ox O2 Del Method 05/22/24 11:26 36.8 C 64 18 131/70 96 Room Air 05/22/24 10:48 73 18 95 Room Air 05/22/24 08:18 36.6 C 73 18 142/81 H 94 Room Air 05/22/24 07:20 Room Air 05/22/24 07:10 84 18 95 Room Air 05/22/24 04:23 36.4 C L 75 20 113/69 95 Room Air Laboratory Results 05/21/24 04:21 05/21/24 04:21 PG Care Time/CCT Total # of Minutes Spent Total Time Spent with Patient: Total time spent is greater than 50% in coordination of care (as documented) at patient's floor/unit and/or counseling patient: Coding Level of Care Code 26341 SUB INP/OBS CARE 2/35MIN Diagnoses Abnormal breath sounds R06.89 Lumbosacral radiculopathy M54.17 Type 2 diabetes mellitus without complication, without long-term current use of insulin E11.9 Diabetes mellitus alf insulin use: without termite helper use Diabetes mellitus complication status: without complication Nonobstructive atherosclerosis of coronary artery I25.10 Mixed hyperlipidemia E78.2 Hyperlipidemia type: mixed hyperlipidemia Primary hypertension I10 Hypertension type: primary hypertension Primary hypothyroidism E03.9 (3) Diabetes mellitus, type II Diabetes mellitus alf insulin use: without alf use Diabetes mellitus complication status: without complication Qualified Code(s): E11.9 - Type 2 diabetes mellitus without complications (5) HLD (hyperlipidemia) Hyperlipidemia type: mixed hyperlipidemia Qualified Code(s): E78.2 - Mixed hyperlipidemia (6) Hypertension Hypertension type: primary hypertension Qualified Code(s): I10 - Essential (primary) hypertension
[2024-05-22 14:42] VITALS: O2SAT 94
[2024-05-22] MEDS: guaiFENesin/DEXTROM SYRUP 200MG/20MG 10ML UDC PO STA (14:44)
--- NOTE | 2024-05-22 15:27 | Discharge Summary ---
Date of Service May 22, 2024 Principal Diagnosis Same as "Discharge Diagnosis" noted below under Discharge Instructions. Discharge Exam 5 out of 5 strength bilateral L2-S1 myotomes Sensation intact to light touch L2-S1 Drain removed Discharge Data Consultations 05/20/24 15:05 Consult Hospitalist Routine Procedures Performed Operation Date: 05/20/24 07:30 Actual Procedures p L5-S1 Laminectomy with L5-S1 Transforaminal Lumbar Interbody Fusion with CT Navigation, Spinal Cord Monitoring(Not Applicable) - Christopher Soto MD Ordered Studies 05/20/24 07:30 CT lumbar spine wo con Routine [place] lumbar spine 2-3V Routine Hospital Course (1) S/P lumbar fusion: Plan Admitted for post operative pain control following spine fusion. Pain controlled, he participated with PT, no need for transfusion. He was evaluated by hospitalist for multiple comorbidities and deemed safe for discharge on post op day 2. Drain was removed, 25 cc output over 4 hours and 50 cc over the previous 12 hours. PG Care Time/CCT Total # of Minutes Spent Total Time Spent with Patient: Total time spent is greater than 50% in coordination of care (as documented) at patient's floor/unit and/or counseling patient: Discharge Plan Discharge Items Patient Disposition: Home - Self-Care Reason For Visit: Lumbar and Sacral Spondylarthritis, Lumbosacral Ra Discharge Diagnosis: Lumbo Sacral Radiculopathy s/p Spinal Fusion Condition on Discharge: Good Activity: As commented below Activity Comment: follow post op instruction sheet Lifting: No more than 5 pounds Bathing Comment: follow post op instructions Non-emergency contact: Surgeon Call non-emergency contact if: your pain is worsening, your temperature is above 101, your wound has increased redness and your wound has increased drainage Follow-up/Referrals: Tip Oliver, [Outside Practitioners] - Diet: Carb Consistent or DM2 Addtl Attending Provider Instructions: 2 week follow up in office follow instructions on post op sheet from office Pending Studies at Discharge: No Stand-Alone Forms: My Up My Game, Smoking Cessation Medications and DC Order Prescriptions: New methocarbamol 750 mg Tablet 750 mg PO TID PRN (Reason: muscle spasm) 30 Days Qty: 90 0RF oxycodone 5 mg tablet 5 mg PO Q6H PRN (Reason: pain) Qty: 30 0RF Continued diltiazem HCl 180 mg capsule,extended release 24hr 180 mg PO DAILY Qty: 30 11RF valacyclovir 500 mg tablet 500 mg PO HS acetaminophen 325 mg Tablet 650 mg PO Q4H PRN (Reason: pain) Qty: 50 0RF atorvastatin 40 mg tablet 40 mg PO QAM metformin 1,000 mg tablet 1,000 mg PO BID aspirin 81 mg Tablet,Delayed Release (Dr/Ec) 81 mg PO HS omega 4-wvl-yed-fish oil [Fish Oil] 360-1,200 mg Capsule,Delayed Release(Dr/Ec) 1 cap PO DAILY fluticasone propionate 50 mcg/actuation spray,suspension 2 spray INTRANASAL QAM losartan 50 mg Tablet 50 mg PO BID tadalafil 5 mg Tablet 5 mg PO DAILY PRN (Reason: bladder issues) Patient Comments: has not taken in a long time levothyroxine 88 mcg Tablet 88 mcg PO QAM furosemide [Lasix] 40 mg Tablet 40 mg PO QAM famotidine 20 mg Tablet 20 mg PO QAM ipratropium bromide 21 mcg (0.03 %) spray,non-aerosol 2 spray INTRANASAL TID cholecalciferol (vitamin D3) [Vitamin D3] 50 mcg (2,000 unit) Capsule 50 mcg PO DAILY Benefiber Sugar Free (dextrin) 3 gram/4 gram Powder 1 packet PO DAILY Rx Instructions: mix into at least 4 oz water or juice before administering omeprazole 40 mg Capsule,Delayed Release(Dr/Ec) 40 mg PO BID potassium chloride 20 mEq Tablet Extended Release 20 meq PO QAM Ozempic 2 mg/dose (8 mg/3 mL) Pen Injector 2 mg SUBCUT Q7D Patient Comments: fridays carvedilol 25 mg Tablet 25 mg PO BID Qty: 60 0RF hydralazine 25 mg Tablet 25 mg PO TID Qty: 90 0RF amiodarone 200 mg tablet 200 mg PO QAM Discharge Orders: Discharge Order (Routine); Ordered 05/22/24 Ordered By: Christopher Moralez/Other Patient Handouts: Managing Type 2 Diabetes Admission Data Admit Date/Time: 05/20/24 10:57 Attending Provider: Christopher Soto Admit Provider: Christopher Soto Primary Care Provider: Rodrigo Moreno III Other Providers: Aly Barbosa; Don Manley; Robson Darden; Kirt Soler; Ilan Bliss; Shira Purcell; Stormy Smallwood; Leona Silva; Slime Astudillo; Sameer Calderon; Anita Yanez; Regan Feliz; Don Burrows; Devin Juan; Tavon Smith; Tsering Rubio; Karol Jj E; Karol Manzano; Lisa Fields E; Radha Martinez N; Taisha Tanner; Rosita Martinez.; Francois De Guzman; Maged Holcomb; Deanne Dos Santos; Yessy Dennis; Myesha Mandujano; Diaz Martinez; Andrew Macias; Robson Vera; Kirt Godienz; Charleen Gold; Livia Lezama; Sarina Means; Jerry Barron; Percy Garcia; Oriana Olivera; Zachary Patiño; Kimberly Zhou; Dann West; Sonja Hall Other Interventions: Discharge Summary Assessment (RN) Last Done: 05/22/24 14:46
[2024-05-22] MEDS: MAGNESIUM HYDROXIDE SUSP 30 ML UDC PO PRN (17:33)
[2024-05-22 17:40] VITALS: BP 130/71; PULSE 78
== END 2024-05-22 18:42 | disposition home or self-care (01) | DRG 402 ==
LOC: ASU 05:56 → 2W 10:57